=== PATIENT | female | born 1950 | race Caucasian/White ===

== ENCOUNTER 2021-06-03 21:14 | Emergency (ER) | payer MEDICARE ==
--- NOTE | 2021-06-03 21:39 | ED ---
Fall HPI - General Chief Complaint: Fall Stated Complaint: Syncope, Fall Time Seen by Provider: 06/03/21 21:19 Source: patient Mode of arrival: EMS - History of Present Illness Initial Comments: This patient is a 70-year-old woman who arrives by ambulance to be evaluated after she had passed out, fallen and injured her left ankle. The patient states that she had not been feeling well since the holiday. She states she hadn't really eaten much since Thursday or so. She had gotten up to use the bathroom. She states she felt a bit lightheaded and then woke up on the floor and noticed that her ankle was aching and she could not put weight on it. EMS was called and placed a splint and then transported the patient here. The patient denies any other injuries. No head or neck pain. No chest, back abdomen or other extremity pains. The patient had not noticed any palpitations or arrhythmia. She did not have chest pain, diaphoresis, dyspnea, nausea or vomiting. MD Complaint: fall -: minutes(s) Fall From: standing When Fall Occurred: just prior to arrival Fall Witnessed: no Place Fall Occurred: home Loss of Consciousness: second(s) Prolonged Down Time?: no Symptoms Prior to Fall: lightheadedness Location - Extremities: Left: Ankle Severity: moderate Quality: aching Context: history of frequent falls Associated Symptoms: denies - Related Data Previous Rx's Medication Instructions Recorded HYDROcodone/APAP 5-325MG [[place] 1 tab PO Q4HR PRN 3 Days #18 tab 06/04/21 5-325] Ondansetron Odt [Zofran ODT] 4 mg PO Q8HR PRN #10 tab 06/04/21 metFORMIN HCL [Glucophage] 500 mg PO BID #20 tab 06/04/21 Allergies Allergy/AdvReac Type Severity Reaction Status Date / Time No Known Allergies Allergy Verified 06/03/21 21:24 Review of Systems ROS Statement: Those systems with pertinent positive or pertinent negative responses have been documented in the HPI. ROS Other: All systems not noted in ROS Statement are negative. Constitutional: Denies: fever, chills Eyes: Denies: vision change Respiratory: Denies: cough, dyspnea Cardiovascular: Denies: chest pain, palpitations Gastrointestinal: Denies: abdominal pain, nausea, vomiting Genitourinary: Denies: dysuria, hematuria Musculoskeletal: Denies: back pain Skin: Denies: rash Neurological: Denies: headache, weakness, numbness Past Medical History Past Medical History: Diabetes Mellitus History of Any Multi-Drug Resistant Organisms: None Reported Past Surgical History: No Surgical Hx Reported Past Psychological History: No Psychological Hx Reported Smoking Status: Former smoker Past Alcohol Use History: Occasional Past Drug Use History: None Reported General Exam Limitations: no limitations General appearance: alert, in no apparent distress Head exam: Present: atraumatic, normocephalic Eye exam: Present: normal appearance. Absent: scleral icterus, conjunctival injection Neck exam: Present: normal inspection Respiratory exam: Present: normal lung sounds bilaterally. Absent: respiratory distress, wheezes, rales, rhonchi, stridor Cardiovascular Exam: Present: regular rate, normal rhythm, normal heart sounds. Absent: systolic murmur, diastolic murmur, rubs, gallop GI/Abdominal exam: Present: soft. Absent: distended, tenderness, guarding, rebound, rigid, mass Extremities exam: Present: normal capillary refill. Absent: pedal edema, calf t enderness Left Hip exam: Present: normal inspection, full ROM. Absent: tenderness, swelling Upper Leg exam: Present: normal inspection, full ROM. Absent: tenderness, swelling Knee exam: Present: normal inspection, full ROM. Absent: tenderness, swelling Lower Leg exam: Present: normal inspection, full ROM. Absent: tenderness, swelling Ankle exam: Present: tenderness, swelling. Absent: normal inspection, full ROM Foot/Toe exam: Present: normal inspection, full ROM. Absent: tenderness, swelling Neurovascular tendon exam: Present: no vascular compromise. Absent: abnormal cap refill, abnormal 2-point discrimination Back exam: Present: normal inspection, full ROM. Absent: vertebral tenderness Neurological exam: Present: alert. Absent: motor sensory deficit Skin exam: Present: warm, dry, intact, normal color. Absent: rash Course Vital Signs 06/03/21 06/03/21 06/03/21 21:20 23:09 23:24 Temperature 98.3 F Pulse Rate 104 H 100 96 Respiratory 16 19 20 Rate Blood Pressure 125/81 103/64 103/73 O2 Sat by Pulse 95 97 98 Oximetry 06/03/21 06/03/21 06/03/21 23:25 23:39 23:45 Temperature Pulse Rate 80 84 79 Respiratory 18 15 19 Rate Blood Pressure 116/58 109/74 139/73 O2 Sat by Pulse 96 98 98 Oximetry 06/04/21 00:00 Temperature Pulse Rate 82 Respiratory 18 Rate Blood Pressure 135/74 O2 Sat by Pulse 98 Oximetry Procedures - Orthopedic Fracture Reduction Fracture #1 Consent Obtained: written consent Side: left Fracture Reduction Location: tibia, fibula Analgesia: procedural sedation Technique: direct manipulation Post Reduction X-rays Demonstrate: acceptable reduction Post-Reduction Neuro Exam: intact Post-Reduction Vascular Exam: intact Splint Applied: Yes Patient Tolerated Procedure: well, no complications - Orthopedic Splinting/Casting Injury #1 Side: left Lower Extremity Injury Location: ankle Lower Extremity Immobilizer: posterior splint, stirrup splint Additional Comments: There is a buckle present in the stirrup splint however it is below the post erior mold and the patient is not having any pain or contact. Medical Decision Making - Lab Data Result diagrams: 06/03/21 21:19 06/03/21 21:19 Lab Results 06/03/21 06/03/21 06/03/21 Range/Units 21:19 21:19 21:19 WBC 15.5 H (3.8-10.6) k/uL RBC 4.71 (3.80-5.40) m/uL Hgb 14.6 (11.4-16.0) gm/dL Hct 43.5 (34.0-46.0) % MCV 92.2 (80.0-100.0) fL MCH 30.9 (25.0-35.0) pg MCHC 33.5 (31.0-37.0) g/dL RDW 12.9 (11.5-15.5) % Plt Count 361 (150-450) k/uL MPV 8.4 Neutrophils % 77 % Lymphocytes % 15 % Monocytes % 6 % Eosinophils % 0 % Basophils % 0 % Neutrophils # 12.0 H (1.3-7.7) k/uL Lymphocytes # 2.3 (1.0-4.8) k/uL Monocytes # 1.0 (0-1.0) k/uL Eosinophils # 0.0 (0-0.7) k/uL Basophils # 0.1 (0-0.2) k/uL PT 10.9 (9.0-12.0) sec INR 1.0 (<1.2) APTT 23.5 (22.0-30.0) sec Sodium 137 (137-145) mmol/L Potassium 4.3 (3.5-5.1) mmol/L Chloride 96 L (98-107) mmol/L Carbon Dioxide 22 (22-30) mmol/L Anion Gap 19 mmol/L BUN 39 H (7-17) mg/dL Creatinine 1.63 H (0.52-1.04) mg/dL Est GFR (CKD-EPI)AfAm 36 (>60 ml/min/1.73 sqM) Est GFR (CKD-EPI)NonAf 32 (>60 ml/min/1.73 sqM) Glucose 318 H (74-99) mg/dL Calcium 10.4 H (8.4-10.2) mg/dL Total Bilirubin 0.9 (0.2-1.3) mg/dL AST 23 (14-36) U/L ALT 17 (4-34) U/L Alkaline Phosphatase 130 H (38-126) U/L Troponin I (0.000-0.034) ng/mL Total Protein 9.0 H (6.3-8.2) g/dL Albumin 4.7 (3.5-5.0) g/dL Coronavirus (PCR) (Not Detectd) 06/03/21 06/03/21 Range/Units 21:19 22:05 WBC (3.8-10.6) k/uL RBC (3.80-5.40) m/uL Hgb (11.4-16.0) gm/dL Hct (34.0-46.0) % MCV (80.0-100.0) fL MCH (25.0-35.0) pg MCHC (31.0-37.0) g/dL RDW (11.5-15.5) % Plt Count (150-450) k/uL MPV Neutrophils % % Lymphocytes % % Monocytes % % Eosinophils % % Basophils % % Neutrophils # (1.3-7.7) k/uL Lymphocytes # (1.0-4.8) k/uL Monocytes # (0-1.0) k/uL Eosinophils # (0-0.7) k/uL Basophils # (0-0.2) k/uL PT (9.0-12.0) sec INR (<1.2) APTT (22.0-30.0) sec Sodium (137-145) mmol/L Potassium (3.5-5.1) mmol/L Chloride (98-107) mmol/L Carbon Dioxide (22-30) mmol/L Anion Gap mmol/L BUN (7-17) mg/dL Creatinine (0.52-1.04) mg/dL Est GFR (CKD-EPI)AfAm (>60 ml/min/1.73 sqM) Est GFR (CKD-EPI)NonAf (>60 ml/min/1.73 sqM) Glucose (74-99) mg/dL Calcium (8.4-10.2) mg/dL Total Bilirubin (0.2-1.3) mg/dL AST (14-36) U/L ALT (4-34) U/L Alkaline Phosphatase (38-126) U/L Troponin I 0.013 (0.000-0.034) ng/mL Total Protein (6.3-8.2) g/dL Albumin (3.5-5.0) g/dL Coronavirus (PCR) Not Detected (Not Detectd) - EKG Data -: EKG Interpreted by Me EKG shows normal: sinus rhythm, axis (Normal), intervals (Normal), QRS complexes (Normal), ST-T waves (Normal) Rate: tachycardia (Rate 101 bpm) Disposition Clinical Impression: Fall, Ankle fracture, bimalleolar, closed, Hyperglycemia Disposition: HOME SELF-CARE Condition: Good Instructions (If sedation given, give patient instructions): Ankle Fracture (ED), Moderate Sedation (ED), Nondiabetic Hyperglycemia (ED) Prescriptions: metFORMIN HCL [Glucophage] 500 mg PO BID #20 tab HYDROcodone/APAP 5-325MG [[place] 5-325] 1 tab PO Q4HR PRN 3 Days #18 tab PRN Reason: Pain Ondansetron Odt [Zofran ODT] 4 mg PO Q8HR PRN #10 tab PRN Reason: Nausea Is patient prescribed a controlled substance at d/c from ED?: Yes When asked, does pt state using other controlled substances?: No If prescribed controlled substance>3 days was MAPS reviewed?: Prescribed <3 Days If opioid is for acute pain is fill amount 7 days or less?: Yes If Rx opioid, was Start Talking consent form obtained?: Yes Referrals: None,Stated [Primary Care Provider] - 1-2 days Nicholas Proctor MD [Medical Doctor] - 1-2 days
[2021-06-03] MEDS ORDERED: ETOMIDATE 2 MG/ML 10 ML VIAL IVP STA (22:00)
--- NOTE | 2021-06-03 22:02 | XR ---
EXAMINATION TYPE: XR chest 2V DATE OF EXAM: 06/03/2021 COMPARISON: NONE HISTORY: Syncope. Chest pain TECHNIQUE: 2 views FINDINGS: Heart and mediastinum are normal. Lungs are clear. Diaphragm is normal. Bony thorax is inta ct IMPRESSION: Normal chest.
--- NOTE | 2021-06-03 22:04 | XR ---
EXAMINATION TYPE: XR ankle complete LT DATE OF EXAM: 06/03/2021 COMPARISON: NONE HISTORY: Fall. Pain. TECHNIQUE: 3 views FINDINGS: There is transverse fracture of the medial malleolus. There is oblique fracture of the dist al fibula. There is lateral displacement of the talus proximally 2 cm. There is probably a nondisplac ed posterior malleolus chip fracture. There is plantar and Achilles calcaneal spurring. IMPRESSION: Trimalleolar fracture of the ankle. Lateral partial dislocation of the talus.
[2021-06-03 22:08] LABS: Basophils # (A) 0.1 k/uL (0-0.2); Basophils % (A) 0 %; Eosinophils % (A) 0 %; HCT 43.5 % (34.0-46.0); HGB 14.6 gm/dL (11.4-16.0); Lymphocytes # (A) 2.3 k/uL (1.0-4.8); Lymphocytes % (A) 15 %; MCH 30.9 pg (25.0-35.0); MCHC 33.5 g/dL (31.0-37.0); MCV 92.2 fL (80.0-100.0); Mean Platelet Volume 8.4; Monocytes % (A) 6 %; Neutrophils % (A) 77 %; Platelet Count 361 k/uL (150-450); RBC 4.71 m/uL (3.80-5.40); RDW 12.9 % (11.5-15.5); WBC 15.5 k/uL (3.8-10.6)
[2021-06-03 22:22] LABS: Albumin 4.7 g/dL (3.5-5.0); Calcium 10.4 mg/dL (8.4-10.2); Potassium 4.3 mmol/L (3.5-5.1); Total Bilirubin 0.9 mg/dL (0.2-1.3)
[2021-06-03 22:24] LABS: Partial Thromboplastin Time 23.5 sec (22.0-30.0); Prothrombin Time 10.9 sec (9.0-12.0)
[2021-06-03] MEDS ORDERED: MORPHINE SULFATE 4 MG/ML SYRINGE IV STA (22:27)
--- NOTE | 2021-06-03 23:48 | XR ---
EXAMINATION TYPE: XR ankle complete LT DATE OF EXAM: 06/03/2021 COMPARISON: Today HISTORY: Post reduction TECHNIQUE: 3 views FINDINGS: There is oblique fracture distal fibula. There is transverse fracture medial malleolus. Ank le mortise is reasonably in anatomic position. IMPRESSION: There is satisfactory reduction of a bimalleolar fracture of the left ankle. No definite posterior malleolus fracture.
[2021-06-04] MEDS ORDERED: SODIUM CHLORIDE 0.9% 1,000 ML IV ONE (00:23)
[2021-06-04] MEDS ORDERED: ONDANSETRON 4 MG/2 ML VIAL IVP STA (00:57)
[2021-06-04 01:52] VITALS: BP 120/73; RESP 19
[2021-06-04 01:54] VITALS: PULSE 74; TEMP 98.9
== END 2021-06-04 01:30 | disposition home or self-care (01) ==
LOC: EC 21:14
DX: S82.842A Displaced bimalleolar fracture of left lower leg, initial encounter for closed fracture (principal); E11.65 Type 2 diabetes mellitus with hyperglycemia; Z79.84 Long term (current) use of oral hypoglycemic drugs; Z87.891 Personal history of nicotine dependence; Z20.822 Contact with and (suspected) exposure to COVID-19; W18.30XA Fall on same level, unspecified, initial encounter
CPT/HCPCS: 99284; 96374; 96375; 27810; 36415; 93005; 80053; 84484; 85025; 85610; 85730; 87635; 73610; 71046; J2270; J2405

== ENCOUNTER 2021-06-14 12:44 | Day surgery (SDC) | payer MEDICARE ==
[2021-06-11 09:52] VITALS: BMI 25.4
[~2021-06-14 12:44] MED LIST: DEXAMETHASONE SOD PHOSPHATE 4 MG/ML 1 ML VIAL IV ONE; HYDROmorphone 0.5 MG/0.5 ML SYRINGE IVP PRN; ONDANSETRON 4 MG/2 ML VIAL IVP ONE
[2021-06-14] MEDS: LACTATED RINGERS 1,000 ML IV SCH ×2 (13:39→20:52)
[2021-06-14 13:47] LABS: Glucose,Whole Blood 178 mg/dL (75-99)
[2021-06-14] MEDS ORDERED: MIDAZOLAM 2 MG/2 ML VIAL IVP ONE (14:15)
[2021-06-14] MEDS ORDERED: fentaNYL (PF) 50 MCG/ML 2 ML AMP IVP ONE (14:16)
--- NOTE | 2021-06-14 14:41 | P.ANPRN ---
Procedure Note - Anesthesia - Nerve Block Performed Left Popliteal Single Time Out Performed: Yes (1415) Date of Procedure: 06/14/21 Procedure Start Time: 14:16 Procedure Stop Time: 14:17 Location of Patient: PreOp Indication: Acute Post-Operative Pain, Requested by Surgeon Specifically requested for management of pain by DrJordon: Daniel Millan Sedation Type: Sedate with meaningful contact maintained Preparation: Sterile Prep Position: Supine Catheter: None Needle Types: Pajunk Needle Gauge: 21 Ultrasound used to visualize needle placement: Yes Ultrasound used to observe medication spread: Yes Injectate: 0.5% Ropivacaine (see comment for volume) (15cc + 15cc nacl pf) Blood Aspirated: No Pain Paresthesia on Injection Noted: No Resistance on Injection: Normal Image Stored and Saved: Yes Events: Uneventful and Well Tolerated
--- NOTE | 2021-06-14 14:42 | P.ANPRN ---
Procedure Note - Anesthesia - Nerve Block Performed Left Adductor Canal Single Time Out Performed: Yes (1415) Date of Procedure: 06/14/21 Procedure Start Time: 14:17 Procedure Stop Time: 14:18 Location of Patient: PreOp Indication: Acute Post-Operative Pain, Requested by Surgeon Specifically requested for management of pain by DroJrdon: Nicholas Proctor Sedation Type: Sedate with meaningful contact maintained Preparation: Sterile Prep Position: Supine Catheter: None Needle Types: Pajunk Needle Gauge: 21 Ultrasound used to visualize needle placement: Yes Ultrasound used to observe medication spread: Yes Injectate: 0.5% Ropivacaine (see comment for volume) (15cc + 15cc nacl pf) Blood Aspirated: No Pain Paresthesia on Injection Noted: No Resistance on Injection: Normal Image Stored and Saved: Yes Events: Uneventful and Well Tolerated
[2021-06-14] MEDS ORDERED: MIDAZOLAM 2 MG/2 ML VIAL ONE (16:06)
[2021-06-14] MEDS ORDERED: SUCCINYLCHOLINE CHLORIDE 100 MG/5 ML SYR IV ONE (16:06)
[2021-06-14] MEDS ORDERED: GLYCOPYRROLATE 0.2 MG/ML 2 ML VIAL ONE (16:06)
[2021-06-14] MEDS ORDERED: SODIUM CHLORIDE 0.9% (PF) 10 ML VIAL ONE (16:06)
[2021-06-14] MEDS ORDERED: LIDOCAINE 1% INJ 10MG/ML (20 ML MDV) ONE (16:06)
[2021-06-14] MEDS ORDERED: fentaNYL (PF) 50 MCG/ML 2 ML AMP ONE (16:06)
[2021-06-14] MEDS ORDERED: HYDROmorphone (PF) 1 MG/ML ONE (16:06)
[2021-06-14] MEDS ORDERED: PROPOFOL 10 MG/ML 20 ML VIAL IV ONE (16:06)
[2021-06-14] MEDS ORDERED: NEOSTIGMINE 1 MG/ML 10 ML VIAL ONE (16:06)
[2021-06-14] MEDS ORDERED: PHENYLEPHRINE-0.9% NACL SYG 1,000 MCG/10 ML SYRINGE ONE (16:06)
[2021-06-14] MEDS ORDERED: ROPIVACAINE 5 MG/ML 30 ML VIAL ONE (16:06)
[2021-06-14] MEDS ORDERED: ROCURONIUM 10 MG/ML (5 ML VIAL) IV ONE (16:06)
[2021-06-14] MEDS ORDERED: diphenhydrAMINE 50 MG/ML 1 ML VIAL ONE (16:06)
[2021-06-14] MEDS ORDERED: LACTATED RINGERS 1,000 ML IV ONE (17:04)
[2021-06-14] MEDS ORDERED: HYDROmorphone 0.2 MG/1 ML SYRINGE IVP PRN (18:40)
[2021-06-14] MEDS ORDERED: SENNOSIDES-DOCUSATE SODIUM 1 EACH TAB PO PRN (18:40)
[2021-06-14] MEDS ORDERED: HYDROcodone/APAP 5-325MG 1 EACH TAB PO PRN ×2 (18:40)
[2021-06-14] MEDS ORDERED: ONDANSETRON 4 MG/2 ML VIAL IVP PRN (18:40)
[2021-06-14] MEDS ORDERED: hydrOXYzine pamoate 25 MG CAP PO PRN (18:40)
[2021-06-14] MEDS ORDERED: HYDROmorphone 0.5 MG/0.5 ML SYRINGE IVP PRN ×2 (18:40)
--- NOTE | 2021-06-14 19:00 | P.OP ---
Date of Procedure: 06/14/21 Preoperative Diagnosis: 1. Left trimalleolar ankle fracture dislocation 2. History of diabetes, not currently taking diabetic medications. Preoperative hemoglobin A1c 9 3. Questionable history of cigarette use 4. Nonhealing ulcer over her lateral heel, left ankle 5. Noncompliance Postoperative Diagnosis: Same Procedure(s) Performed: 1. Open reduction and internal fixation of left medial and lateral malleolus, nonoperative management posterior malleolus 2. Application of short leg splint by physician, left ankle Anesthesia: SANKET, regional Surgeon: Nicholas Proctor Computer Hardware Designer #1: Lucia Deluna Estimated Blood Loss (ml): 15 IV fluids (ml): 1,000 Pathology: none sent Condition: stable Disposition: PACU Indications for Procedure: The patient is a 70-year-old female with an unclear medical history who presented with a left closed trimalleolar ankle fracture dislocation. The patient's sister states that she does not have a primary care physician. There is a questionable history of diabetes and cigarette smoking. She has not been having her diabetes managed. Her hemoglobin A1c preoperatively was 9. I saw the patient in the office and placed her in a well-padded splint after coming in and a poorly padded splint from the emergency department. I met with the patient and her sister discuss treatment options. I recommended open reduction and internal fixation. We discussed the potential risks and competitions of surgery including but not limited to risks from anesthesia, infection, delayed wound healing, damage to blood vessels or nerves, nonunion, malunion, loss of fixation, post traumatic arthritis, DVT, PE, other medical complications, and inability to regain preinjury level of function, need for further surgery, and possibly loss of life or limb. Operative Findings: After the patient was under anesthesia and the splint was removed there are multiple bruises seen diffusely throughout the ankle and foot. There is a chronic nonhealing ulcer with an eschar over the lateral wall of the calcaneus. The patient's sister states that this has been here for over a year. The patient's bone was extremely osteopenic with some bone loss suggestive of weightbearing in her splint. After surgery I had a long discussion with the patient's sister. She stated that her sister has been noncompliant and putting weight on her leg in the splint. She also reports a history of poorly controlled diabetes and that she is not currently taking care of herself with her medications. She states that the eschar on the lateral wall of her [place] is been present for over a year and has not been healing due to noncompliance. Description of Procedure: The patient was identified in preoperative holding and the correct left leg was marked with my initials. I reviewed the consent form with the patient and her sister. All their questions were answered. The patient was then given a block by anesthesia. She was brought back to the operating room. She is given a general anesthetic and preoperative antibiotics. Her splint was taken down. There was wrinkling of the skin and no open wounds. There are multiple bruises that appeared chronic throughout her leg. She had a dry eschar over the lateral aspect of her left calcaneus. There is a superficial serous blister over the dorsum of her foot. A tourniquet was applied the proximal aspect the left leg. A chlorhexidine scrub brush was used to scrub the leg clean. A bump was placed under the left hip and a ramp was placed under the left leg to facilitate imaging. Left leg was then prepped and draped in standard sterile fashion. Prior to starting surgery timeout was performed identifying the correct patient, operative extremity, and procedure. The patient's leg was then elevated, exsanguinated with an Esmarch bandage, and the tourniquet was inflated to 250 mmHg. I began by making a longitudinal incision directly over the lateral malleolus. Dissection was carried down carefully to the subcutaneous tissue. The superficial peroneal nerve was identified and carefully retracted throughout the procedure. The periosteum and fascia was elevated. The patient's distal fragm ent was completely displaced with minimal soft tissue attachments. There were some bone loss and comminution on the anterior aspect of the proximal fragment. The bone was slightly eburnated suggestive of weightbearing. The fracture edges were carefully debrided. The bone was extremely osteopenic. The fibula was pulled out to length and gently clamp. Fluoroscopy was used to verify reduction. K wires were placed holding the reduction due to the poor bone quality. A precontoured distal fibular locking plate was placed over the lateral aspect of the fibula. A nonlocking 3.5 mm screw was placed just proximal to the fracture bringing the plate down nicely to bone. 2 additional nonlocking 3.5 mm screws were placed proximally bringing the plate down to bone. A nonlocking 3.5 mm screw was placed distally to bring the plate down to bone and then cutting screws were placed distally. The nonlocking screw distally was removed and a final locking screw was placed distally. The K wires and clamps were removed and the reduction held. Attention was then turned medially. A longitudinal incision was made directly over the medial malleolus. The fracture site was identified. There is a vertical component to it. There is again bone loss and eburnation of the bone margin suggestive of early weightbearing. The fracture was keyed in and held reduced with K wires. A one third tubular plate was contoured over the medial malleolus due to the patient's poor bone quality. Nonlocking screws were placed proximally to the fracture and a 3.5 mm screw was placed through the distal hole of the plate. Due to the patient's poor bone quality, history of diabetes, and noncompliance 3 syndesmotic screws were placed. At this point final fluoroscopic images were taken. The fibula appeared to out to length and the talus was reduced anatomically within the ankle mortise. The wounds were then thoroughly irrigated and closed in layers. The skin incisions were reinforced with brown stretchy Steri-Strips. Sterile dressings were applied over the surgical incisions. Silvadene and nonadherent gauze were placed over the chronic ulcer on the lateral aspect of her heel and on the dorsum of her foot. A very well-padded bulky Adame splint was placed with the ankle at neutral. The patient was then awoken from her anesthetic and transferred to a rney, and brought to recovery having tolerated the procedure well. Lucia Deluna PA-C was required as a skilled speech language pathologist assistant due to the complexity of the procedure. Plan: The patient is to be strictly nonweightbearing on her left ankle. She will receive 2 doses of postoperative antibiotics. DVT prophylaxis with aspirin. Internal medicine for perioperative medical management and evaluation for chronic diabetes as her preoperative hemoglobin A1c was 9.0. I would also like to get a nutrition consult due to the patient's poor soft tissue envelope and chronic ulceration over the lateral aspect of her heel. I had a long discussion with the patient's sister on her outcome. I stressed the importance of strict compliance and nonweightbearing. We discussed that the patient had a history of compliance in the past that she has been walking on her ankle preoperatively. I would also like a social work and care management consultation for evaluation of rehab given the patient's home situation and concern for compliance. Like to see the patient in 1 week for a wound check.
[2021-06-14 19:17] LABS: Glucose,Whole Blood 221 mg/dL (75-99)
[2021-06-14] MEDS ORDERED: INSULIN ASPART (NovoLOG) 100 UNIT/ML VIAL SQ ONE (19:24)
--- NOTE | 2021-06-14 21:06 | XR ---
EXAMINATION TYPE: XR ankle limited LT DATE OF EXAM: 06/14/2021 COMPARISON: NONE HISTORY: Ankle fracture TECHNIQUE: 5 view FINDINGS: 2 minutes and 90 seconds of fluoroscopy time was recorded for the surgery. A series of 5 im ages show placement of plates and screws fixating the fractures of the distal tibia and fibula in anupam tomic position. IMPRESSION: No complicating process seen.
[2021-06-14 22:29] LABS: Albumin 3.5 g/dL (3.5-5.0)
[2021-06-14 23:26] LABS: Glucose,Whole Blood 214 mg/dL (75-99)
[2021-06-14] MEDS: INSULIN ASPART (NovoLOG) 100 UNIT/ML VIAL SQ SCH (23:35)
[2021-06-15] MEDS: LACTATED RINGERS 1,000 ML IV SCH ×3 (02:28→17:17)
--- NOTE | 2021-06-15 05:04 | P.CONS ---
History of Present Illness - Reason for Consult Consult date: 06/14/21 post op medical management of DM Requesting physician: Nicholas Proctor - Chief Complaint left ankle fracture - History of Present Illness 70 year old female with DM patient comes in for scheduled ORIF of left ankle after she had a fall injury 06/04/2021 resulting in closed fracture of the left ankle , was initially reduced and placed in cast , and now presenting for ORIF. patient tolerated procedure well, no observed immediate post op complications, denies any chest pain or trouble breathing, pain is controlled and well tolerated Review of Systems Pertinent positives as noted in HPI. All other systems were reviewed and are negative Past Medical History Past Medical History: Diabetes Mellitus History of Any Multi-Drug Resistant Organisms: None Reported Past Surgical History: No Surgical Hx Reported Additional Past Surgical History / Comment(s): pt states "female surgery to help with " Past Anesthesia/Blood Transfusion Reactions: No Reported Reaction Past Psychological History: No Psychological Hx Reported Smoking Status: Former smoker Past Alcohol Use History: Rare Past Drug Use History: None Reported - Past Family History Mother Family Medical History: No Reported History Medications and Allergies Home Medications Medication Instructions Recorded Confirmed Type HYDROcodone/APAP 5-325MG [Lerna 1 tab PO Q4HR PRN 3 Days #18 tab 06/04/21 06/11/21 Rx 5-325] Ondansetron Odt [Zofran ODT] 4 mg PO Q8HR PRN #10 tab 06/04/21 06/14/21 Rx metFORMIN HCL [Glucophage] 500 mg PO BID #20 tab 06/04/21 06/14/21 Rx Aspirin 81 mg PO BID 30 Days #60 tab 06/14/21 Rx Allergies Allergy/AdvReac Type Severity Reaction Status Date / Time codeine AdvReac Itching Verified 06/14/21 13:44 Physical Exam Vitals: Vital Signs Temp Pulse Resp BP Pulse Ox 06/15/21 01:45 98.7 F 74 16 139/73 95 06/14/21 22:35 98.4 F 62 128/71 94 L 06/14/21 22:20 74 113/74 96 06/14/21 22:05 64 130/70 94 L 06/14/21 21:50 65 129/75 97 06/14/21 21:05 67 143/79 96 06/14/21 20:50 71 161/65 97 06/14/21 20:35 68 134/66 97 06/14/21 20:20 98.3 F 65 18 133/71 95 06/14/21 19:32 71 16 121/62 98 06/14/21 19:18 67 16 129/60 97 06/14/21 19:03 68 16 128/60 99 06/14/21 18:48 75 16 138/64 96 06/14/21 18:33 98.1 F 83 16 146/66 99 06/14/21 14:24 71 16 128/60 100 06/14/21 13:41 98.5 F 85 17 147/62 100 Intake and Output 06/14/21 06/14/21 06/15/21 14:59 22:59 06:59 Intake Total 400 1275 800 Output Total 15 400 Balance 400 1260 400 Intake: IV 400 1275 Intake, IV Titration 800 Amount Lactated Ringers 1,000 ml 800 @ 100 mls/hr IV .Q10H AZALIA Rx#:[id number] Output: Urine 400 Estimated Blood Loss 15 Other: # Voids 1 Weight 74.843 kg Constitutional: No acute distress, conversant, pleasant Eyes: Anicteric sclerae, moist conjunctiva, Pupils equal round reactive to light ENMT: NC/AT Oropharynx clear, no erythema, or exudates Neck: Supple, no masses, or JVD No carotid bruits No thyromegaly Lungs: Clear to auscultation Clear to percussion Normal respiratory effort, no accessory muscle use Cardiovascular: Heart regular in rate and rhythm, No murmurs, gallops, or rubs No peripheral edema Abdominal: Soft Nontender, no guarding, rebound or rigidity Abdomen moving with respiration Normoactive bowel sounds No hepatomegaly, No splenomegaly No palpable mass No abdominal wall hernia noted Skin: Normal temperature, tone, texture, turgor No induration No subcutaneous nodules No rash, lesions No ulcers Extremities: left lower extremity in surgical dressing , cappilary refill immediate over the toes No digital cyanosis No clubbing Pedal pulses intact over right foot, unable to assess left foot due to surgical dressing Radial pulses intact and symmetrical No calf tenderness Psychiatric: Alert and oriented to person, place and time Appropriate affect fair judgement Neuro Muscles Strength 4/5 in bilateral upper and right lower extremity , exam limited over left lower extremity due to recent surgery Sensation to light touch grossly present throughout Cranial nerves II-XII grossly intact Lymphatics: no palpable cervical or supraclavicular , or inguinal lymph nodes Results Labs: Abnormal Lab Results - Last 24 Hours (Table) 06/14/21 06/14/21 06/14/21 Range/Units 13:46 19:10 23:25 POC Glucose (mg/dL) 178 H 221 H 214 H (75-99) mg/dL Assessment and Plan Assessment: left ankle fracture s/p ORIF post op zero pain control and DVT pPX per ortho DM on oral hypoglycemic agent hold metformin insulin sliding scale check A1c follow up CBC and BMP Thank you for allowing us to participate in the care of this patient. Do not hesitate to contact us with questions. Someone can be reached from the [facility] hospitalist group at all hours of the day at [phone].
[2021-06-15 07:18] LABS: Glucose,Whole Blood 150 mg/dL (75-99)
[2021-06-15] MEDS ORDERED: INSULIN ASPART (NovoLOG) 100 UNIT/ML VIAL SQ SCH ×2 (07:30→22:59)
[2021-06-15] MEDS: INSULIN ASPART (NovoLOG) 100 UNIT/ML VIAL SQ SCH ×4 (07:41→20:39)
--- NOTE | 2021-06-15 07:41 | FL ---
EXAMINATION TYPE: FL guidance operating room DATE OF EXAM: 06/14/2021 CLINICAL HISTORY: Left ankle fracture. TECHNIQUE: Fluoroscopy. COMPARISON: Left ankle x-ray June 03, 2021. FINDINGS: Fluoroscopic guidance was provided during open reduction internal fixation procedure perfo rmed by Dr. Proctor. A total of 2 minutes 90 seconds of fluoroscopic time was utilized during the p rocedure and 5 spot intraoperative images are acquired. IMPRESSION: As Above.
--- NOTE | 2021-06-15 09:49 | P.PN ---
Subjective Progress Note Date: 06/15/21 Principal diagnosis: Bimalleolar fracture left ankle. Status post open reduction internal fixation left ankle. The patient is a 70-year-old female with an unclear medical history who presented with a left closed trimalleolar ankle fracture dislocation. The patient's sister states that she does not have a primary care physician. There is a questionable history of diabetes and cigarette smoking. She has not been having her diabetes managed. Her hemoglobin A1c preoperatively was 9. I saw the patient in the office and placed her in a well-padded splint after coming in and a poorly padded splint from the emergency department. I met with the patient and her sister discuss treatment options. I recommended open reduction and internal fixation. The patient is postop day #1 status post open reduction internal fixation bimalleolar fracture left ankle. She states that her pain is well controlled. She denies nausea vomiting or diarrhea. She is afebrile. Vital signs are stable. She has no new complaints or concerns. Objective - Vital Signs Vital signs: Vital Signs Temp 98.5 F 06/15/21 08:00 Pulse 72 06/15/21 08:00 Resp 14 06/15/21 08:00 BP 123/69 06/15/21 08:00 Pulse Ox 96 06/15/21 08:00 Intake & Output 06/14/21 06/15/21 06/15/21 18:59 06:59 18:59 Intake Total 1450 1025 Output Total 15 400 Balance 1435 625 Weight 74.843 kg 74.843 kg Intake: IV 1450 225 Intake, IV Titration 800 Amount Lactated Ringers 1,000 ml 800 @ 100 mls/hr IV .Q10H AZALIA Rx#:[id number] Output: Urine 400 Estimated Blood Loss 15 Other: # Voids 250 - Exam This is a pleasant 70-year-old female in no acute distress. She is alert and oriented at this time. Exam of the left lower extremity reveals a dislocated Adame splint in place. She has full toe motion without difficulty or pain. She has decreased sensation to the toes, likely secondary to the nerve block. Cap illary refill is less than 3 seconds to the toes. - Labs Labs: Abnormal Lab Results - Last 24 Hours (Table) 06/14/21 06/14/21 06/14/21 Range/Units 13:46 19:10 23:25 POC Glucose (mg/dL) 178 H 221 H 214 H (75-99) mg/dL 06/15/21 Range/Units 07:17 POC Glucose (mg/dL) 150 H (75-99) mg/dL Assessment and Plan (1) Status post open reduction with internal fixation (ORIF) of fracture of ankle Current Visit: Yes Status: Acute Code(s): Z98.890 - OTHER SPECIFIED POSTPROCEDURAL STATES; Z87.81 - PERSONAL HISTORY OF (HEALED) TRAUMATIC FRACTURE SNOMED Code(s): 137493622 (2) Ankle fracture, bimalleolar, closed Current Visit: No Status: Acute Code(s): S82.843A - DISPLACED BIMALLEOLAR FRACTURE OF UNSP LOWER LEG, INIT SNOMED Code(s): 77186500 Plan: The clinical findings are discussed with the patient. She will have physical therapy and occupational therapy evaluations. She likely will require inpatient rehab at discharge. Continue current care. She is nonweightbearing to the left lower extremity with use of walker.
[2021-06-15 10:06] LABS: Basophils # (A) 0.02 X 10*3/uL (0.00-0.10); Basophils % (A) 0.2 %; Eosinophils # (A) 0 X 10*3/uL (0.04-0.35); Eosinophils % (A) 0 %; HCT 29.4 % (37.2-46.3); HGB 9.6 g/dL (12.0-15.0); Lymphocytes # (A) 1.58 X 10*3/uL (0.90-5.00); Lymphocytes % (A) 12.6 %; MCH 29.7 pg (27.0-32.0); MCHC 32.7 g/dL (32.0-37.0); Mean Platelet Volume 10.4 fL (9.5-12.2); Neutrophils # (A) 9.91 X 10*3/uL (1.80-7.70); Neutrophils % (A) 78.7 %; Platelet Count 314 X 10*3/uL (140-440); RBC 3.23 X 10*6/uL (4.10-5.20); RDW 12.5 % (11.5-14.5); WBC 12.57 X 10*3/uL (4.50-10.00)
--- NOTE | 2021-06-15 11:29 | P.PN ---
Subjective Progress Note Date: 06/15/21 Principal diagnosis: ankle fracture Doing well. She is s/p open reduction internal fixation bimalleolar fracture left ankle. No significant pain, no sob. No fevers. Objective - Vital Signs Vital signs: Vital Signs Temp 98.5 F 06/15/21 08:00 Pulse 72 06/15/21 08:00 Resp 14 06/15/21 08:00 BP 123/69 06/15/21 08:00 Pulse Ox 96 06/15/21 08:00 Intake & Output 06/14/21 06/15/21 06/15/21 18:59 06:59 18:59 Intake Total 1450 1025 Output Total 15 400 Balance 1435 625 Weight 74.843 kg 74.843 kg Intake: IV 1450 225 Intake, IV Titration 800 Amount Lactated Ringers 1,000 ml 800 @ 100 mls/hr IV .Q10H AZALIA Rx#:[id number] Output: Urine 400 Estimated Blood Loss 15 Other: Voiding Method Bedside Commode # Voids 250 - Exam Constitutional: No acute distress, conversant, pleasant Eyes:Anicteric sclerae, moist conjunctiva, no lid-lag, PERRLA, ENMT: Oropharynx clear, no erythema, exudates Neck: Supple, FROM, no masses, or JVD, No carotid bruits, No thyromegaly Lungs: Clear to auscultation, Clear to percussion, Normal respiratory effort, no accessory muscle use Cardiovascular: Heart regular in rate and rhythm, No murmurs, gallops, or rubs, No peripheral edema Abdominal: Soft, Nontender, no guarding, rebound or rigidity, Normoactive bowel sounds, No hepatomegaly, No splenomegaly, No palpable mass Skin: Normal temperature, tone, texture, turgor, no induration, No subcutaneous nodules, No rash, lesions, No ulcers Extremities: Left ankle dressings applied. No digital cyanosis, No clubbing, Pedal pulses intact and symmetrical, Radial pulses intact and symmetrical, No calf tenderness Psychiatric: Alert and oriented to person, place and time, appropriate affect, intact judgement Neuro: Muscles Strength 5/5 in all 4 extremities, Sensation to light touch grossly present throughout, Cranial nerves II-XII grossly intact, no focal sensory deficits - Labs CBC & Chem 7: 06/15/21 03:45 Labs: Abnormal Lab Results - Last 24 Hours (Table) 06/14/21 06/14/21 06/14/21 Range/Units 13:46 19:10 21:47 WBC (4.50-10.00) X 10*3/uL RBC (4.10-5.20) X 10*6/uL Hgb (12.0-15.0) g/dL Hct (37.2-46.3) % Immature Gran # (0.00-0.04) X 10*3/uL Neutrophils # (1.80-7.70) X 10*3/uL Eosinophils # (0.04-0.35) X 10*3/uL POC Glucose (mg/dL) 178 H 221 H (75-99) mg/dL Vitamin D 25-Hydroxy 20.3 L (30.0-100.0) ng/mL 06/14/21 06/15/21 06/15/21 Range/Units 23:25 03:45 07:17 WBC 12.57 H (4.50-10.00) X 10*3/uL RBC 3.23 L (4.10-5.20) X 10*6/uL Hgb 9.6 L (12.0-15.0) g/dL Hct 29.4 L (37.2-46.3) % Immature Gran # 0.06 H (0.00-0.04) X 10*3/uL Neutrophils # 9.91 H (1.80-7.70) X 10*3/uL Eosinophils # 0 L (0.04-0.35) X 10*3/uL POC Glucose (mg/dL) 214 H 150 H (75-99) mg/dL Vitamin D 25-Hydroxy (30.0-100.0) ng/mL Assessment and Plan Plan: status post open reduction internal fixation bimalleolar fracture left ankle Post op day number 1 pain control and DVT pPX per ortho DM on oral hypoglycemic agent hold metformin insulin sliding scale check A1c Renal failure Recent cr 1.6, will do a follow up BMP Unclear if acute or chronic Vit D deficiency [place] with 68744 units weekly for 3 months.
[2021-06-15 11:31] LABS: Glucose,Whole Blood 107 mg/dL (75-99)
[2021-06-15 11:52] LABS: African American GFR (CKD) 82.1 (60.0-200.0); Anion Gap 13.4 mmol/L (10.00-18.00); BUN/Creat Ratio 22.86 Ratio (12.00-20.00); Carbon Dioxide 21.7 mmol/L (20.0-27.5); Non-African American GFR(CKD) 70.8 (60.0-200.0); Potassium 4.2 mmol/L (3.5-5.5)
[2021-06-15] MEDS ORDERED: ERGOCALCIFEROL 1,250 MCG (50,000 IU) CAPSULE PO SCH (12:00)
[2021-06-15 16:54] LABS: Glucose,Whole Blood 160 mg/dL (75-99)
[2021-06-15 20:29] LABS: Glucose,Whole Blood 123 mg/dL (75-99)
[2021-06-16 07:06] LABS: Glucose,Whole Blood 166 mg/dL (75-99)
[2021-06-16] MEDS: LACTATED RINGERS 1,000 ML IV SCH ×5 (07:08→22:59)
[2021-06-16] MEDS: INSULIN ASPART (NovoLOG) 100 UNIT/ML VIAL SQ SCH ×4 (07:44→20:21)
--- NOTE | 2021-06-16 08:27 | P.PN ---
Subjective Progress Note Date: 06/16/21 No acute events. Pain well-controlled. Objective - Vital Signs Vital signs: Vital Signs Temp 99.5 F 06/16/21 06:29 Pulse 96 06/16/21 06:29 Resp 18 06/16/21 06:29 BP 160/70 06/16/21 06:29 Pulse Ox 98 06/16/21 06:29 Intake & Output 06/15/21 06/16/21 06/16/21 18:59 06:59 18:59 Intake Total 1080 Output Total 2650 Balance 1080 -2650 Weight 74.843 kg Intake: Oral 1080 Output: Urine 2650 Other: Voiding Method Bedside Commode Bedside Commode # Voids 2 1 - Exam The patient is sitting up in her bed. She is alert and oriented. On inspection of the left ankle there is a clean and intact bulky Adame splint. Her toes are warm and well-perfused brisk capillary refill. There is no pain with passive range of motion of her toes. Sensation is intact to light touch in her expose toes. She able to actively move her toes. - Labs CBC & Chem 7: 06/15/21 03:45 06/15/21 03:45 Labs: Abnormal Lab Results - Last 24 Hours (Table) 06/14/21 06/15/21 06/15/21 Range/Units 21:47 03:45 03:45 WBC 12.57 H (4.50-10.00) X 10*3/uL RBC 3.23 L (4.10-5.20) X 10*6/uL Hgb 9.6 L (12.0-15.0) g/dL Hct 29.4 L (37.2-46.3) % Immature Gran # 0.06 H (0.00-0.04) X 10*3/uL Neutrophils # 9.91 H (1.80-7.70) X 10*3/uL Eosinophils # 0 L (0.04-0.35) X 10*3/uL BUN/Creatinine Ratio 22.86 H (12.00-20.00) Ratio Glucose 189 H (70-110) mg/dL POC Glucose (mg/dL) (75-99) mg/dL Hemoglobin A1c (4.0-6.0) % Vitamin D 25-Hydroxy 20.3 L (30.0-100.0) ng/mL 06/15/21 06/15/21 06/15/21 Range/Units 03:45 11:29 16:52 WBC (4.50-10.00) X 10*3/uL RBC (4.10-5.20) X 10*6/uL Hgb (12.0-15.0) g/dL Hct (37.2-46.3) % Immature Gran # (0.00-0.04) X 10*3/uL Neutrophils # (1.80-7.70) X 10*3/uL Eosinophils # (0.04-0.35) X 10*3/uL BUN/Creatinine Ratio (12.00-20.00) Ratio Glucose (70-110) mg/dL POC Glucose (mg/dL) 107 H 160 H (75-99) mg/dL Hemoglobin A1c 8.9 H (4.0-6.0) % Vitamin D 25-Hydroxy (30.0-100.0) ng/mL 06/15/21 06/16/21 Range/Units 20:28 07:04 WBC (4.50-10.00) X 10*3/uL RBC (4.10-5.20) X 10*6/uL Hgb (12.0-15.0) g/dL Hct (37.2-46.3) % Immature Gran # (0.00-0.04) X 10*3/uL Neutrophils # (1.80-7.70) X 10*3/uL Eosinophils # (0.04-0.35) X 10*3/uL BUN/Creatinine Ratio (12.00-20.00) Ratio Glucose (70-110) mg/dL POC Glucose (mg/dL) 123 H 166 H (75-99) mg/dL Hemoglobin A1c (4.0-6.0) % Vitamin D 25-Hydroxy (30.0-100.0) ng/mL Assessment and Plan Assessment: Postoperative day #2 status post open reduction and internal fixation of left trimalleolar ankle fracture, doing well. Plan: 1. Strict nonweightbearing left ankle, likely 10-12 weeks given her history of poorly controlled diabetes 2. DVT prophylaxis with aspirin 3. Perioperative medical management and diabetes management per internal medicine 4. Nutrition consult due to the patient's multiple medical problems and history of poor wound healing 5. PT/OT 6. Discharge planning and process, would benefit from rehab.
[2021-06-16 08:46] LABS: Basophils # (A) 0.06 X 10*3/uL (0.00-0.10); Basophils % (A) 0.4 %; Eosinophils # (A) 0.09 X 10*3/uL (0.04-0.35); Eosinophils % (A) 0.6 %; HCT 33.6 % (37.2-46.3); Lymphocytes # (A) 2.26 X 10*3/uL (0.90-5.00); Lymphocytes % (A) 14.7 %; MCH 29.6 pg (27.0-32.0); MCHC 32.7 g/dL (32.0-37.0); MCV 90.3 fL (80.0-97.0); Mean Platelet Volume 10.5 fL (9.5-12.2); Monocytes # (A) 1.12 X 10*3/uL (0.20-1.00); Monocytes % (A) 7.3 %; Neutrophils # (A) 11.73 X 10*3/uL (1.80-7.70); Neutrophils % (A) 76.5 %; Platelet Count 332 X 10*3/uL (140-440); RBC 3.72 X 10*6/uL (4.10-5.20); RDW 12.3 % (11.5-14.5); WBC 15.33 X 10*3/uL (4.50-10.00)
[2021-06-16] MEDS: ASPIRIN 325 MG TAB PO SCH (09:06)
[2021-06-16 09:22] LABS: African American GFR (CKD) 82.4 (60.0-200.0); Anion Gap 16.5 mmol/L (10.00-18.00); BUN/Creat Ratio 15.56 Ratio (12.00-20.00); Blood Urea Nitrogen 12.9 mg/dL (9.0-27.0); Calcium 8.9 mg/dL (8.7-10.3); Carbon Dioxide 22.1 mmol/L (20.0-27.5); Magnesium 1.1 mg/dL (1.5-2.4); Non-African American GFR(CKD) 71.1 (60.0-200.0); Phosphorus 2.5 mg/dL (2.4-5.1); Potassium 3.9 mmol/L (3.5-5.5)
[2021-06-16 11:48] LABS: Glucose,Whole Blood 130 mg/dL (75-99)
[2021-06-16] MEDS ORDERED: MAGNESIUM SULFATE-D5W PMX 1 GM in DEXTROSE/WATER 1 100ML.BAG IVPB SCH (13:00)
--- NOTE | 2021-06-16 13:00 | P.PN ---
Subjective Progress Note Date: 06/16/21 Principal diagnosis: ankle fracture Patient felt nauseous this am. No vomiting. No fevers or chills. No pain. Objective - Vital Signs Vital signs: Vital Signs Temp 99.5 F 06/16/21 06:29 Pulse 96 06/16/21 06:29 Resp 18 06/16/21 06:29 BP 160/70 06/16/21 06:29 Pulse Ox 98 06/16/21 06:29 Intake & Output 06/15/21 06/16/21 06/16/21 18:59 06:59 18:59 Intake Total 1080 Output Total 2650 Balance 1080 -2650 Weight 74.843 kg Intake: Oral 1080 Output: Urine 2650 Other: Voiding Method Bedside Commode Bedside Commode External Catheter # Voids 2 1 - Exam Constitutional: No acute distress, conversant, pleasant Eyes:Anicteric sclerae, moist conjunctiva, no lid-lag, PERRLA, ENMT: Oropharynx clear, no erythema, exudates Neck: Supple, FROM, no masses, or JVD, No carotid bruits, No thyromegaly Lungs: Clear to auscultation, Clear to percussion, Normal respiratory effort, no accessory muscle use Cardiovascular: Heart regular in rate and rhythm, No murmurs, gallops, or rubs, No peripheral edema Abdominal: Soft, Nontender, no guarding, rebound or rigidity, Normoactive bowel sounds, No hepatomegaly, No splenomegaly, No palpable mass Skin: Normal temperature, tone, texture, turgor, no induration, No subcutaneous nodules, No rash, lesions, No ulcers Extremities: Left ankle dressings applied. No digital cyanosis, No clubbing, Pedal pulses intact and symmetrical, Radial pulses intact and symmetrical, No calf tenderness Psychiatric: Alert and oriented to person, place and time, appropriate affect, intact judgement Neuro: Muscles Strength 5/5 in all 4 extremities, Sensation to light touch abdullahi ssly present throughout, Cranial nerves II-XII grossly intact, no focal sensory deficits - Labs CBC & Chem 7: 06/16/21 04:40 06/16/21 04:40 Labs: Abnormal Lab Results - Last 24 Hours (Table) 06/15/21 06/15/21 06/15/21 Range/Units 03:45 16:52 20:28 WBC (4.50-10.00) X 10*3/uL RBC (4.10-5.20) X 10*6/uL Hgb (12.0-15.0) g/dL Hct (37.2-46.3) % Immature Gran # (0.00-0.04) X 10*3/uL Neutrophils # (1.80-7.70) X 10*3/uL Monocytes # (0.20-1.00) X 10*3/uL Glucose (70-110) mg/dL POC Glucose (mg/dL) 160 H 123 H (75-99) mg/dL Hemoglobin A1c 8.9 H (4.0-6.0) % Magnesium (1.5-2.4) mg/dL 06/16/21 06/16/21 06/16/21 Range/Units 04:40 04:40 07:04 WBC 15.33 H (4.50-10.00) X 10*3/uL RBC 3.72 L (4.10-5.20) X 10*6/uL Hgb 11.0 L (12.0-15.0) g/dL Hct 33.6 L (37.2-46.3) % Immature Gran # 0.07 H (0.00-0.04) X 10*3/uL Neutrophils # 11.73 H (1.80-7.70) X 10*3/uL Monocytes # 1.12 H (0.20-1.00) X 10*3/uL Glucose 175 H (70-110) mg/dL POC Glucose (mg/dL) 166 H (75-99) mg/dL Hemoglobin A1c (4.0-6.0) % Magnesium 1.1 L (1.5-2.4) mg/dL 06/16/21 Range/Units 11:47 WBC (4.50-10.00) X 10*3/uL RBC (4.10-5.20) X 10*6/uL Hgb (12.0-15.0) g/dL Hct (37.2-46.3) % Immature Gran # (0.00-0.04) X 10*3/uL Neutrophils # (1.80-7.70) X 10*3/uL Monocytes # (0.20-1.00) X 10*3/uL Glucose (70-110) mg/dL POC Glucose (mg/dL) 130 H (75-99) mg/dL Hemoglobin A1c (4.0-6.0) % Magnesium (1.5-2.4) mg/dL Assessment and Plan Plan: status post open reduction internal fixation bimalleolar fracture left ankle Post op day number 2 pain control and DVT pPX per ortho DM on oral hypoglycemic agent hold metformin insulin sliding scale A1c 8.9, will start linagliptin upon discharge. TYREL Resolved. [place] 54504 units weekly for 3 months. Plan for rehab, will arrange thursday.
[2021-06-16] MEDS: MAGNESIUM SULFATE-D5W PMX 1 GM in DEXTROSE/WATER 1 100ML.BAG IVPB SCH ×3 (13:56→16:35)
[2021-06-16] MEDS: ACETAMINOPHEN TAB 325 MG TAB PO PRN (15:21)
[2021-06-16 16:37] LABS: Glucose,Whole Blood 178 mg/dL (75-99)
[2021-06-16 20:21] LABS: Glucose,Whole Blood 112 mg/dL (75-99)
[2021-06-17] MEDS: ACETAMINOPHEN TAB 325 MG TAB PO PRN (05:50)
[2021-06-17 07:15] LABS: Glucose,Whole Blood 133 mg/dL (75-99)
[2021-06-17] MEDS: INSULIN ASPART (NovoLOG) 100 UNIT/ML VIAL SQ SCH ×2 (07:41→12:06)
[2021-06-17] MEDS: ASPIRIN 325 MG TAB PO SCH (07:41)
[2021-06-17 09:14] LABS: African American GFR (CKD) 80 (>60 ml/min/1.73 sqM); Anion Gap 6 mmol/L; Blood Urea Nitrogen 14 mg/dL (7-17); Calcium 8.9 mg/dL (8.4-10.2); Carbon Dioxide 27 mmol/L (22-30); Chloride 102 mmol/L (98-107); Glucose 187 mg/dL (74-99); Magnesium 1.5 mg/dL (1.6-2.3); Non-African American GFR(CKD) 69 (>60 ml/min/1.73 sqM); Potassium 3.4 mmol/L (3.5-5.1); Sodium 135 mmol/L (137-145)
--- NOTE | 2021-06-17 09:44 | P.PN ---
Subjective Progress Note Date: 06/17/21 This patient is a 70-year-old female who is status-post left ankle open reduction and internal fixation on 06/14/21. Today is pos-toperative day #3. The patient is seen and examined at bedside. She states she is having no pain in the left ankle. She states she has been remaining non-weight bearing on the left lower extremity. Her bulky Adame splint remains intact. She is tolerating her diet well. No new complaints or concerns at this time. Vital signs stable. Objective - Vital Signs Vital signs: Vital Signs Temp 98.6 F 06/17/21 08:00 Pulse 72 06/17/21 08:00 Resp 17 06/17/21 08:00 BP 125/56 06/17/21 08:00 Pulse Ox 98 06/17/21 08:00 Intake & Output 06/16/21 06/17/21 06/17/21 18:59 06:59 18:59 Output Total 500 1100 Balance -500 -1100 Output: Urine 500 1100 Other: Voiding Method External Catheter - Exam On examination, the patient is sitting up in bed in no apparent distress. She is alert and oriented 3. On inspection of the left lower extremity, there is a clean, dry, intact bulky Adame splint intact. The visible portion of the toes are warm and well perfused. No pain with PROM of the toes. Patient is able to move toes appropriately. Right calf is soft and non-tender. - Labs CBC & Chem 7: 06/16/21 04:40 06/17/21 08:32 Labs: Abnormal Lab Results - Last 24 Hours (Table) 06/16/21 06/16/21 06/16/21 Range/Units 11:47 16:36 20:19 Sodium (137-145) mmol/L Potassium (3.5-5.1) mmol/L Glucose (74-99) mg/dL POC Glucose (mg/dL) 130 H 178 H 112 H (75-99) mg/dL Magnesium (1.6-2.3) mg/dL 06/17/21 06/17/21 Range/Units 07:14 08:32 Sodium 135 L (137-145) mmol/L Potassium 3.4 L (3.5-5.1) mmol/L Glucose 187 H (74-99) mg/dL POC Glucose (mg/dL) 133 H (75-99) mg/dL Magnesium 1.5 L (1.6-2.3) mg/dL Assessment and Plan Assessment: Status-post left ankle open reduction and internal fixation on 06/14/21. Post- operative day #3. Plan: - Strict nonweightbearing operative leg. Keep bulky Adame splint clean, dry, intact. - Physical therapy for gait and balance training. - Aspirin for DVT prophylaxis. - Pain management as needed. - Internal medicine for martha-operative medical management. - Hemoglobin A1C 9.0 pre-operatively. Nutrition consult. - Awaiting social work evaluation. Anticipate discharge to rehab.
--- NOTE | 2021-06-17 10:32 | P.PN ---
Subjective Progress Note Date: 06/17/21 Principal diagnosis: ankle fracture Doing well. No new complaints. Participating with PT. Objective - Vital Signs Vital signs: Vital Signs Temp 98.6 F 06/17/21 08:00 Pulse 72 06/17/21 08:00 Resp 17 06/17/21 08:00 BP 125/56 06/17/21 08:00 Pulse Ox 98 06/17/21 08:00 Intake & Output 06/16/21 06/17/21 06/17/21 18:59 06:59 18:59 Output Total 500 1100 Balance -500 -1100 Output: Urine 500 1100 Other: Voiding Method External Catheter - Exam Constitutional: No acute distress, conversant, pleasant Eyes:Anicteric sclerae, moist conjunctiva, no lid-lag, PERRLA, ENMT: Oropharynx clear, no erythema, exudates Neck: Supple, FROM, no masses, or JVD, No carotid bruits, No thyromegaly Lungs: Clear to auscultation, Clear to percussion, Normal respiratory effort, no accessory muscle use Cardiovascular: Heart regular in rate and rhythm, No murmurs, gallops, or rubs, No peripheral edema Abdominal: Soft, Nontender, no guarding, rebound or rigidity, Normoactive bowel sounds, No hepatomegaly, No splenomegaly, No palpable mass Skin: Normal temperature, tone, texture, turgor, no induration, No subcutaneous nodules, No rash, lesions, No ulcers Extremities: Left ankle dressings applied. No digital cyanosis, No clubbing, Pedal pulses intact and symmetrical, Radial pulses intact and symmetrical, No calf tenderness Psychiatric: Alert and oriented to person, place and time, appropriate affect, intact judgement Neuro: Muscles Strength 5/5 in all 4 extremities, Sensation to light touch grossly present throughout, Cranial nerves II-XII grossly intact, no focal sensory deficits - Labs CBC & Chem 7: 06/16/21 04:40 06/17/21 08:32 Labs: Abnormal Lab Results - Last 24 Hours (Table) 06/16/21 06/16/21 06/16/21 Range/Units 11:47 16:36 20:19 Sodium (137-145) mmol/L Potassium (3.5-5.1) mmol/L Glucose (74-99) mg/dL POC Glucose (mg/dL) 130 H 178 H 112 H (75-99) mg/dL Magnesium (1.6-2.3) mg/dL 06/17/21 06/17/21 Range/Units 07:14 08:32 Sodium 135 L (137-145) mmol/L Potassium 3.4 L (3.5-5.1) mmol/L Glucose 187 H (74-99) mg/dL POC Glucose (mg/dL) 133 H (75-99) mg/dL Magnesium 1.5 L (1.6-2.3) mg/dL Assessment and Plan Plan: status post open reduction internal fixation bimalleolar fracture left ankle Post op day number 3 pain control and DVT pPX per ortho DM on oral hypoglycemic agent hold metformin insulin sliding scale A1c 8.9, will start linagliptin upon discharge. TYREL Resolved. Vit [place] with 47602 units weekly for 3 months. Plan for rehab, will arrange.
[2021-06-17] MEDS ORDERED: POTASSIUM CHLORIDE ER 20 MEQ TAB.ER PO STA (10:33)
[2021-06-17 11:45] LABS: Glucose,Whole Blood 143 mg/dL (75-99)
[2021-06-17] MEDS: MAGNESIUM SULFATE-D5W PMX 1 GM in DEXTROSE/WATER 1 100ML.BAG IVPB SCH ×2 (12:07→14:01)
--- NOTE | 2021-06-17 12:51 | P.DS ---
Providers Expected date of discharge: 06/17/21 Attending physician: Nicholas Proctor Consults: 06/14/21 18:52 Consult Physician Routine Consulting Provider: Isaac Siddiqui Consult Reason/Comments: medical management Do you want consulting provider notified?: Yes Primary care physician: Stated None Hospital Course: This patient is a 70-year-old female who sustained a fall resulting in a left ankle fracture. Patient was initially seen in the office by Dr. Proctor and placed into a well-padded bulky Adame splint. Patient underwent an open reduction and internal fixation of left trimalleolar ankle fracture on 06/14/[address] Proctor. The procedure is performed without complication or sequelae. The patient is doing well postoperatively. Vital signs are stable on post-op day #3. The patient is examined bedside this morning. She states the pain in her left ankle is well-controlled. She has been working with physical therapy and states she has been remaining nonweightbearing on the operative leg. She is tolerating her diet well. She overall feels well. She denies chest pain, shortness breath, nausea, vomiting, fevers, chills. No new complaints or concerns this morning. On examination, the patient is sitting up in bed in no acute distress. Patient is alert and orientated x3. On inspection of the left lower extremity, there is a bulky Adame splint in place. Splint is clean, dry, intact. Patient is able to wiggle left toes without issue. The toes are warm and well-perfused with brisk capillary refill. Motor and sensory function is intact of the left lower extremity. No pain at passive range of motion of the left toes. Right calf is soft and nontender to palpation. The patient is discharged to subacute rehab today, pending medical clearance. Please refer to the med rec for accurate list of medications. She is instructed to follow-up in the office in [address] Proctor for wound check. Plan - Discharge Summary Discharge Rx Participant: Yes New Discharge Prescriptions: New Aspirin 81 mg PO BID 30 Days #60 tab Linagliptin [Tradjenta] 5 mg PO DAILY 30 Days #30 tab Acetaminophen Tab [Tylenol] 650 mg PO Q6HR PRN tab PRN Reason: Fever And/ Or Pain Ergocalciferol [Vitamin D2 (1250 Mcg = 43855 Iu)] 1,250 mcg PO WEEKLY 90 Days #11 cap HYDROcodone/APAP 5-325MG [[place] 5-325] 1 tab PO Q6HR PRN 7 Days #20 tab PRN Reason: Pain Sennosides-Docusate Sodium [Senokot-S] 2 each PO HS PRN 10 Days #20 tab PRN Reason: Constipation Continue metFORMIN HCL [Glucophage] 500 mg PO BID #20 tab Ondansetron Odt [Zofran ODT] 4 mg PO Q8HR PRN #10 tab PRN Reason: Nausea Discontinued HYDROcodone/APAP 5-325MG [[place] 5-325] 1 tab PO Q4HR PRN 3 Days #18 tab PRN Reason: Pain Discharge Medication List Ondansetron Odt [Zofran ODT] 4 mg PO Q8HR PRN #10 tab 06/04/21 [Rx] metFORMIN HCL [Glucophage] 500 mg PO BID #20 tab 06/04/21 [Rx] Aspirin 81 mg PO BID 30 Days #60 tab 06/14/21 [Rx] Acetaminophen Tab [Tylenol] 650 mg PO Q6HR PRN tab 06/17/21 [Rx] Ergocalciferol [Vitamin D2 (1250 Mcg = 81157 Iu)] 1,250 mcg PO WEEKLY 90 Days #11 cap 06/17/21 [Rx] HYDROcodone/APAP 5-325MG [[place] 5-325] 1 tab PO Q6HR PRN 7 Days #20 tab 06/17/21 [Rx] Linagliptin [Tradjenta] 5 mg PO DAILY 30 Days #30 tab 06/17/21 [Rx] Sennosides-Docusate Sodium [Senokot-S] 2 each PO HS PRN 10 Days #20 tab 06/17/21 [Rx] Follow up Appointment(s)/Referral(s): Nicholas Proctor MD [Medical Doctor] - 1 Week Activity/Diet/Wound Care/Special Instructions: Strict non-weight bearing operative leg. Keep splint clean, dry, intact. Keep operative leg elevated for swelling control. Take pain medications as prescribed. Take aspirin 81mg twice a day for blood clot prevention. Follow-up in the office with Dr. Proctor in one week for a wound check. Call the office with any questions or concerns, Discharge Disposition: TRANSFER TO SNF/ECF
[2021-06-17 14:26] VITALS: BP 152/71; PULSE 80; RESP 18; TEMP 98.4
== END 2021-06-17 16:28 ==
LOC: OR 12:44 → 4SSUR 18:33 → OR 06-17 16:28
PROVIDERS: ATTEND Orthopaedic Surgery
DX: S82.852A Displaced trimalleolar fracture of left lower leg, initial encounter for closed fracture (principal); W19.XXXA Unspecified fall, initial encounter; E11.621 Type 2 diabetes mellitus with foot ulcer; L97.421 Non-pressure chronic ulcer of left heel and midfoot limited to breakdown of skin; E11.65 Type 2 diabetes mellitus with hyperglycemia; I51.9 Heart disease, unspecified; E55.9 Vitamin D deficiency, unspecified; N19 Unspecified kidney failure; Z91.19 Patient's noncompliance with other medical treatment and regimen; Z20.822 Contact with and (suspected) exposure to COVID-19; Z87.891 Personal history of nicotine dependence; Z79.84 Long term (current) use of oral hypoglycemic drugs; Z88.5 Allergy status to narcotic agent; Z97.3 Presence of spectacles and contact lenses; Z97.2 Presence of dental prosthetic device (complete) (partial); Z83.3 Family history of diabetes mellitus
CPT/HCPCS: 97162; 97166; 64447; 64445; 76942; 80048 ×2; 82040; 83735; 85025; 82306; 83036; 87635; 73600; 27814; C1713; J2250; J1200; J1100; J2710; J0690 ×2; J2405; J2001; J3010; J1170; J3475; J2795; J2370; J0330; J2704

== ENCOUNTER 2021-07-29 05:58 | Inpatient (IN) | payer MEDICARE ==
[2021-07-26 10:40] VITALS: BMI 23.1
[2021-07-29] MEDS ORDERED: ONDANSETRON 4 MG/2 ML VIAL IVP ONE (06:34)
[2021-07-29] MEDS ORDERED: DEXAMETHASONE SOD PHOSPHATE 4 MG/ML 1 ML VIAL IV ONE (06:34)
[2021-07-29] MEDS ORDERED: NITROGLYCERIN-D5W PMX 50 MG in DEXTROSE/WATER 1 250ML.BAG IV SCH (07:00)
[2021-07-29] MEDS ORDERED: fentaNYL (PF) 50 MCG/ML 2 ML AMP IV PRN (07:00)
[2021-07-29] MEDS: LACTATED RINGERS 1,000 ML IV SCH ×3 (07:16→08:00)
[2021-07-29] MEDS: LIDOCAINE 1% (10MG/ML) FOR IV START INTRADERMA PRN ×2 (07:17→07:45)
[2021-07-29 07:18] LABS: Glucose,Whole Blood 104 mg/dL (75-99)
--- NOTE | 2021-07-29 07:53 | P.HPIHPCON ---
History of Present Illness H&P Date: 07/29/21 Chief Complaint: Left femoral occlusion with secondary nonhealing surgical wound left lower Patient is a 70-year-old female who last fall fracture left ankle requiring operative intervention. Unfortunately this wound has opened. A vascular standpoint the patient had a femoral pulse however had absent popliteal, DP and PT pulses. Because of her nonhealing wound and physical examination is felt that her underlying wound healing issues that of arterial insufficiency. To that extent she had undergone a abdominal aortogram with runoffs with hope for percutaneous intervention. Angiogram demonstrated a long SFA segment occlusion not amenable to percutaneous intervention. Patient is now offered surgical revascularization. She did undergo vein mapping which demonstrated adequate vein for revascularization purposes. Arterial Doppler was limited owing to her surgical wound however digital waveforms are flat and no digital blood pressure could be obtained. It is felt that surgical revascularization is appropriate given her nonhealing wound and evidence of peripheral vascular disease. Consent for Procedure: I have explained the operation/procedure to the patient, including the risks, benefits, side effects, alternative therapies (including not receiving the proposed treatment or service), the likelihood of the patient achieving his/her goals, and potential recuperation problems for the procedure/sedation/analgesia, as well as any blood products, if indicated. I also explained to the patient the risks, benefits and side effects of the alternatives, as well as the risks related to not receiving the proposed procedure, care, treatment, or services. Past Medical History Past Medical History: Diabetes Mellitus, Hyperlipidemia, Hypertension, Myocardial Infarction ([place]) Additional Past Medical History / Comment(s): DM type 2. Last Myocardial Infarction Date:: 1989 History of Any Multi-Drug Resistant Organisms: None Reported Past Surgical History: No Surgical Hx Reported Additional Past Surgical History / Comment(s): "Female surgery to help with ." Past Anesthesia/Blood Transfusion Reactions: No Reported Reaction Past Psychological History: No Psychological Hx Reported Smoking Status: Former smoker Past Alcohol Use History: Rare Additional Past Alcohol Use History / Comment(s): Quit smoking 28 yrs ago. Additional Drug Use History / Comment(s): "Pot once in a great while". - Past Family History Mother Family Medical History: No Reported History Medications and Allergies Home Medications Medication Instructions Recorded Confirmed Type Aspirin 81 mg PO DAILY 07/16/21 07/26/21 History Ergocalciferol [Vitamin D2 (1250 1,250 mcg PO TU 07/16/21 07/26/21 History Mcg = 02726 Iu)] Magnesium Oxide [Magox 400] 400 mg PO HS 07/16/21 07/26/21 History Pro-Stat 30 ml PO BID 07/16/21 07/26/21 History Sennosides-Docusate Sodium 2 tab PO DAILY 07/16/21 07/26/21 History [Senokot-S] metFORMIN HCL [Glucophage] 500 mg PO BID 07/16/21 07/26/21 History Docusate [Colace] 100 mg PO BID 30 Days #60 cap 07/24/21 07/26/21 Rx Melatonin 5 mg PO HS tablet 07/24/21 07/26/21 Rx Vancomycin HCl in 5 % Dextrose 1 gm IV Q16H #30 each 07/24/21 07/26/21 Rx [Vancomycin 1 Gram/250 ml-D5w] Acetaminophen [Tylenol] 650 mg PO Q6H PRN 07/26/21 07/26/21 History HYDROcodone/APAP 5-325MG [[place] 1 tab PO Q6HR PRN 07/26/21 07/26/21 History 5-325] Linagliptin [Tradjenta] 5 mg PO DAILY 07/26/21 07/26/21 History Tamsulosin [Flomax] 0.4 mg PO DAILY 07/26/21 07/26/21 History amLODIPine BESYLATE 10 mg PO HS 07/26/21 07/26/21 History cefTRIAXone SODIUM 2 gm IV Q24H 07/26/21 07/26/21 History Allergies Allergy/AdvReac Type Severity Reaction Status Date / Time codeine AdvReac Itching Verified 07/29/21 06:52 Surgical - Exam Osteopathic Statement: *. No significant issues noted on an osteopathic structural exam other than those noted in the History and Physical/Consult. - General well developed, well nourished, no distress - Neck no masses, no bruits, trachea midline, no lymphadectomy - Respiratory normal expansion, normal respiratory effort, clear to percussion, clear to auscultation - Cardiovascular Heart Sounds: normal: S1, S2 - Abdomen Abdomen: soft, non tender (Femoral pulses are intact bilaterally while the popliteal, DP and PT pulses are absent bilaterally. There is a wound VAC at the left ankle level. Toes are freely movable and nontender bilaterally. No leg edema is noted either lower extremity.) Results - Labs Abnormal Lab Results - Last 24 Hours (Table) 07/29/21 Range/Units 07:07 POC Glucose (mg/dL) 104 H (75-99) mg/dL - Imaging Additional studies: Abdominal aortogram with runoffs was removed reviewed. Assessment and Plan Assessment: #1: Left femoral occlusion with significant arterial insufficiency resulting in a non-healing surgical wound. #2: History of tobacco abuse. #3: Diabetes mellitus. Plan: #1: Left femoral to popliteal/tibial in situ vein bypass graft. Time with Patient: Less than 30
[2021-07-29] MEDS ORDERED: PROPOFOL 10 MG/ML 20 ML VIAL IV ONE (07:56)
[2021-07-29] MEDS ORDERED: MIDAZOLAM 2 MG/2 ML VIAL ONE (07:56)
[2021-07-29] MEDS ORDERED: ePHEDrine 50 MG/ML 1 ML VIAL ONE (07:56)
[2021-07-29] MEDS ORDERED: fentaNYL (PF) 50 MCG/ML 2 ML AMP ONE (07:56)
[2021-07-29] MEDS ORDERED: HEPARIN SODIUM,PORCINE 10,000 UNIT/ML 1 ML VIAL ONE (07:56)
[2021-07-29] MEDS ORDERED: HYDROmorphone (PF) 1 MG/ML ONE (07:56)
[2021-07-29] MEDS ORDERED: GLYCOPYRROLATE 0.2 MG/ML 2 ML VIAL ONE (07:56)
[2021-07-29] MEDS ORDERED: SUCCINYLCHOLINE CHLORIDE 100 MG/5 ML SYR IV ONE (07:56)
[2021-07-29] MEDS ORDERED: NEOSTIGMINE 1 MG/ML 10 ML VIAL ONE (07:56)
[2021-07-29] MEDS ORDERED: PHENYLEPHRINE-0.9% NACL SYG 1,000 MCG/10 ML SYRINGE ONE (07:56)
[2021-07-29] MEDS ORDERED: ROCURONIUM 10 MG/ML (5 ML VIAL) IV ONE (07:56)
[2021-07-29] MEDS ORDERED: LIDOCAINE 1% INJ 10MG/ML (20 ML MDV) ONE (07:56)
[2021-07-29] MEDS ORDERED: ceFAZolin 4,000 MG in SODIUM CHLORIDE 0.9% 1,000 ML IRRIGATION ONE (08:32)
[2021-07-29] MEDS ORDERED: HEPARIN SODIUM,PORCINE 10,000 UNIT in SODIUM CHLORIDE 0.9% 1,000 ML IRRIGATION ONE (08:32)
[2021-07-29] MEDS ORDERED: LACTATED RINGERS 1,000 ML IV ONE ×2 (11:46)
[2021-07-29] MEDS ORDERED: SODIUM CHLORIDE 0.9% 50 ML with ceFAZolin 2 GM IV ONE ×4 (11:47)
[2021-07-29] MEDS ORDERED: MAG HYDROX/AL HYDROX/SIMETH 30 ML CUP PO PRN (12:43)
[2021-07-29] MEDS ORDERED: MORPHINE SULFATE 2 MG/ML SYRINGE IVP PRN (12:43)
[2021-07-29 13:07] LABS: Glucose,Whole Blood 159 mg/dL (75-99)
--- NOTE | 2021-07-29 13:12 | P.OP ---
Date of Procedure: 07/29/21 Preoperative Diagnosis: #1: Left femoral occlusion. #2: Significant left tibial artery occlusive disease. #3: Nonhealing surgical wound left ankle/foot area secondary to #1 and #2. Postoperative Diagnosis: Same. Procedure(s) Performed: #1: Left femoral to popliteal in situ vein bypass graft. #2: Left common femoral thromboendarterectomy with patch angioplasty. Anesthesia: GETA Surgeon: Juancho Vilchis [place] Machine Operator #1: David Sharpe Estimated Blood Loss (ml): 220 Pathology: none sent Condition: stable Disposition: floor Indications for Procedure: Patient is a 70-year-old female with a long-standing history of diabetes mellitus as well as lower extremity peripheral arterial occlusive disease. She had experienced a fracture requiring operative repair of the left lower extremity. These wounds have been slow to heal. Physical examination demonst rated fine skin consistent with significant arterial insufficiency. In an effort to improve healing operative site is offered surgical bypass as anatomy was not conducive for percutaneous intervention. The procedure, risk and benefits were discussed with the patient. Patient wished to proceed. Description of Procedure: Patient was brought the upper and placed in supine position Mr. general endotracheal anesthesia delivered by the department of anesthesiology. Colby catheter is placed to gravity drainage. Patient received 2 g of Ancef administered intravenously in the perioperative phase for prophylactic antibiotic therapy. Patient's left lower extremity sterilely prepped and draped in usual manner. Skin incision was made over the left inguinal area and carried down through the subcu change tissues. Hemostasis was achieved using electrocautery. Lymphatic layer was divided laterally swept medially exposing femoral sheath. This was opened and entrance was gained into the femoral sheath. The cyst proximal portion of the superficial femoral artery was identified. The dissection was then carried cephalad to the inguinal ligament. The origins of the common femoral, superficial femoral and profundus femoris arteries were encircled Vesseloops. Significant plaque was identified at the common level. Attention was turned to the saphenous vein. This was identified and dissected free of investing tissues and its confluence with the femoral vein was identified. The vein appeared adequate for bypass purposes. Simultaneously skin incision was made in the proximal calf area along the medial aspect. Incision was deepened through the subcu change tissues. Care was taken to avoid the great saphenous vein. Incision was deepened and entrance was gained into the distal popliteal space. A number of crossing veins were encountered. These were mobilized, ligated and divided. This exposed the distal popliteal artery as well as the origin of the anterior tibial tibial peroneal trunk. The great saphenous vein was identified dissected free of investing tissues. The vein itself appeared to be of adequate quality for bypass purposes. The patient was systemically heparinized. After adequate circulation time vessel loops surrounding the femoral vessels were drawn closed. ACT is were drawn and additional doses of heparin were administered based on ACT results drawn every half hour. Arteriotomy was made in the common femoral artery and extended to the origin of the superficial femoral. A large amount of bulky plaque was encountered impeding flow through the profundus system. It was appropriate to perform a thromboendarterectomy. With this procedure marked improvement in retrograde flow through the profundus was identified. The profundus was flushed with heparinized saline solution. The luminal surface was inspected for any loose or free-floating material and this was removed where identified. Patch angioplasty closure of this arteriotomy was performed with bovine pericardial patch and 6-0 Prolene suture placed in running fashion. Just prior to completion of the anastomotic line the profundus was backbled and the common femoral was 4 bled and no thrombus was retrieved. The anastomotic line was completed. Excellent pulsatile flow was identified. Attention was turned the great saphenous vein at its junction with the femoral vein. This was clamped and the femoral vein stump was oversewn with Prolene suture. The great saphenous vein was mobilized. Side branches were ligated and divided where identified. The vein reach the patched portion of the femoral artery. Once again the femoral artery was occluded and the arteriotomy and the patch was made and extended with Crowley scissors. The vein graft reached to the artery without undue tension. End-to-side anastomosis was greater with 6-0 Prolene suture placed in running fashion. Just prior to completion anastomotic line a little retrieved valvotome had been brought from the distal portion of the great saphenous vein which had previously been transected and ligated distally. The valvulotome past through to the proximal portion of the great saphenous vein without incident. The anastomotic line was then completed. Flow was restored into the vein graft and profundus femoris arterial segment. The valvulotome was then utilized to divide the valves. Once this was performed excellent flow through the vein graft was identified. The vein graft was flushed and then occluded. The Vesseloops surrounding the distal popliteal artery were drawn closed. Arteriotomy was made longitudinally in the popliteal artery extended with P[place] scissors. Backbleeding was identified. The vein graft was cut the appropriate length and spatulated to match the arteriotomy. End-to-side anastomosis was greater with 6-0 Prolene suture placed in running fashion. Just prior to completion anastomotic line the vein graft was flushed and the artery backbled and no thrombus was retrieved. The anastomotic line was then completed and flow restored into the popliteal artery via the vein graft. Excellent pulse within the vein graft as well as the mcgrath arterial tree was noted. Utilizing ultrasound the length of the vein graft was inspected for side branches. Where identified skin incision was made over each side branches and the side branch was then ligated or clipped as felt appropriate. All wounds were irrigated with antibiotic taking solution. Hemostasis was judged be adequate. Doppler flows through the vein graft was appropriate. The patient's foot was noted to pink up nicely. Deep tissues were closed each wound with 3-0 Vicryl. The inguinal wound was closed with 4-0 Vicryl placed in running and her dermal fashion. Remaining incisions were closed with skin cristian. Proper dressings were applied. Patient tolerated procedure well, awoke without apparent complication was transferred to the recovery area satisfactory and stable condition.
[2021-07-29 16:47] LABS: Glucose,Whole Blood 187 mg/dL (75-99)
[2021-07-29] MEDS: CLOPIDOGREL 75 MG TAB PO SCH (17:17)
[2021-07-29] MEDS: ASPIRIN 325 MG TAB PO SCH (17:17)
[2021-07-29] MEDS: SODIUM CHLORIDE 0.9% 1,000 ML IV SCH (17:18)
[2021-07-29] MEDS: HYDROcodone/APAP 5-325MG 1 EACH TAB PO PRN (17:21)
[2021-07-29] MEDS ORDERED: ACETAMINOPHEN TAB 325 MG TAB PO PRN (19:34)
[2021-07-29] MEDS: amLODIPine 10 MG TAB PO SCH (20:28)
[2021-07-29] MEDS: ATORVASTATIN 20 MG TAB PO SCH (20:28)
[2021-07-29] MEDS: MELATONIN 5 MG TABLET PO SCH (20:29)
[2021-07-30 00:32] LABS: Glucose,Whole Blood 143 mg/dL (75-99)
[2021-07-30] MEDS: INSULIN ASPART (NovoLOG) 100 UNIT/ML VIAL SQ SCH ×5 (00:39→20:11)
[2021-07-30] MEDS: SODIUM CHLORIDE 0.9% 1,000 ML IV SCH ×3 (00:40→20:39)
[2021-07-30] MEDS: HYDROcodone/APAP 5-325MG 1 EACH TAB PO PRN ×4 (01:35→23:15)
--- NOTE | 2021-07-30 05:09 | P.CONS ---
History of Present Illness - Reason for Consult Consult date: 07/29/21 post op medical managmeent Requesting physician: Juancho Vilchis - Chief Complaint PAD, non healing surgical wound - History of Present Illness 70 year old female with DM, PAD patient sustained a fracture in her left ankle secondary to a fall, however, she had delayed post op wound healing, which triggered further workup and revealed severe PAD not treatable percutaneously for which she was offered surgical options. she underwent left femoral endarterectomy and left femoro popliteal graft bypass. she tolerated procedure well, denies any immediate observed post op complications, denies any chest pain or trouble breathing Review of Systems Pertinent positives as noted in HPI. All other systems were reviewed and are negative Past Medical History Past Medical History: Diabetes Mellitus, Hyperlipidemia, Hypertension, Myocardial Infarction ([place]) Additional Past Medical History / Comment(s): DM type 2. Last Myocardial Infarction Date:: 1989 History of Any Multi-Drug Resistant Organisms: None Reported Past Surgical History: No Surgical Hx Reported Additional Past Surgical History / Comment(s): "Female surgery to help with ." Past Anesthesia/Blood Transfusion Reactions: No Reported Reaction Past Psychological History: No Psychological Hx Reported Smoking Status: Former smoker Past Alcohol Use History: Rare Additional Past Alcohol Use History / Comment(s): Quit smoking 28 yrs ago. Additional Drug Use History / Comment(s): "Pot once in a great while". - Past Family History Mother Family Medical History: No Reported History Medications and Allergies Home Medications Medication Instructions Recorded Confirmed Type Aspirin 81 mg PO DAILY 07/16/21 07/29/21 History Ergocalciferol [Vitamin D2 (1250 1,250 mcg PO TU 07/16/21 07/29/21 History Mcg = 23896 Iu)] Magnesium Oxide [Magox 400] 400 mg PO HS 07/16/21 07/29/21 History Pro-Stat 30 ml PO BID 07/16/21 07/29/21 History Sennosides-Docusate Sodium 2 tab PO DAILY 07/16/21 07/29/21 History [Senokot-S] metFORMIN HCL [Glucophage] 500 mg PO BID 07/16/21 07/29/21 History Docusate [Colace] 100 mg PO BID 30 Days #60 cap 07/24/21 07/29/21 Rx Melatonin 5 mg PO HS tablet 07/24/21 07/29/21 Rx Vancomycin HCl in 5 % Dextrose 1 gm IV Q16H #30 each 07/24/21 07/29/21 Rx [Vancomycin 1 Gram/250 ml-D5w] Acetaminophen [Tylenol] 650 mg PO Q6H PRN 07/26/21 07/29/21 History HYDROcodone/APAP 5-325MG [[place] 1 tab PO Q6HR PRN 07/26/21 07/29/21 History 5-325] Linagliptin [Tradjenta] 5 mg PO DAILY 07/26/21 07/29/21 History Tamsulosin [Flomax] 0.4 mg PO DAILY 07/26/21 07/29/21 History amLODIPine BESYLATE 10 mg PO HS 07/26/21 07/29/21 History cefTRIAXone SODIUM 2 gm IV Q24H 07/26/21 07/29/21 History Allergies Allergy/AdvReac Type Severity Reaction Status Date / Time codeine AdvReac Itching Verified 07/29/21 06:52 Physical Exam Vitals: Vital Signs Temp Pulse Pulse Resp BP BP BP 07/30/21 02:00 73 18 07/30/21 00:00 73 18 130/60 07/29/21 20:00 98.0 F 74 16 119/58 07/29/21 16:45 76 16 115/59 07/29/21 16:15 82 16 116/56 07/29/21 15:45 73 16 124/60 07/29/21 15:30 73 16 131/62 07/29/21 15:15 72 16 126/55 07/29/21 15:00 74 16 130/61 07/29/21 14:45 97.8 F 79 18 119/58 07/29/21 14:30 74 16 126/62 07/29/21 14:15 74 16 124/60 07/29/21 14:00 69 16 124/60 07/29/21 13:45 71 16 122/58 07/29/21 13:30 70 16 122/59 07/29/21 13:15 71 16 122/60 07/29/21 13:04 76 16 115/57 07/29/21 13:00 74 16 121/58 07/29/21 12:41 97.0 F L 86 16 123/57 07/29/21 07:18 98.5 F 76 20 141/63 142/63 Pulse Ox 07/30/21 02:00 07/30/21 00:00 99 07/29/21 20:00 97 07/29/21 16:45 95 07/29/21 16:15 99 07/29/21 15:45 100 07/29/21 15:30 96 07/29/21 15:15 94 L 07/29/21 15:00 94 L 07/29/21 14:45 95 07/29/21 14:30 100 07/29/21 14:15 100 07/29/21 14:00 99 07/29/21 13:45 91 L 07/29/21 13:30 100 07/29/21 13:15 100 07/29/21 13:04 99 07/29/21 13:00 99 07/29/21 12:41 99 07/29/21 07:18 98 Intake and Output 07/29/21 07/29/21 07/30/21 14:59 22:59 06:59 Intake Total 1902 118 Output Total 540 Balance 1362 118 Intake: IV 1902 Oral 118 Output: Urine 290 Estimated Blood Loss 250 Other: Voiding Method Indwelling Catheter Indwelling Catheter Indwelling Catheter Weight 65.1 kg Constitutional: No acute distress, conversant, pleasant Eyes: Anicteric sclerae, moist conjunctiva, Pupils equal round reactive to light ENMT: NC/AT Oropharynx clear, no erythema, or exudates Neck: Supple, FROM, no masses, or JVD No carotid bruits No thyromegaly Lungs: Clear to auscultation Clear to percussion Normal respiratory effort, no accessory muscle use Cardiovascular: Heart regular in rate and rhythm, No murmurs, gallops, or rubs No peripheral edema Abdominal: Soft Nontender, no guarding, rebound or rigidity Abdomen moving with respiration Normoactive bowel sounds No hepatomegaly, No splenomegaly No palpable mass No abdominal wall hernia noted Extremities: No digital cyanosis No clubbing left lower extrmity in surgical dressing capillary refill immediate Psychiatric: Alert and oriented to person, place and time Appropriate affect fair judgement Neuro Muscles Strength 5/5 in bilateral upper extremities , lower extremities limited due to recent surgery Sensation to light touch grossly present throughout Cranial nerves II-XII grossly intact No focal sensory deficits Lymphatics: no palpable cervical or supraclavicular , or inguinal lymph nodes Results CBC & Chem 7: 07/29/21 07:10 Labs: Abnormal Lab Results - Last 24 Hours (Table) 07/29/21 07/29/21 07/29/21 Range/Units 07:07 07:10 12:56 Potassium 3.3 L (3.5-5.1) mmol/L POC Glucose (mg/dL) 104 H 159 H (75-99) mg/dL 07/29/21 07/30/21 Range/Units 16:34 00:30 Potassium (3.5-5.1) mmol/L POC Glucose (mg/dL) 187 H 143 H (75-99) mg/dL Assessment and Plan Assessment: severe peripheral arterial disease poor healing left ankle wound s/p left femoro popliteal graft bypass, POD #zero management per primary chronic conditions DM , resume home meds trajenta , and insulin sliding scale hypertension , resume home BP meds HLD, resume statin full code DVT PPX per primary follow up CBC , CMP Thank you for allowing us to participate in the care of this patient. Do not hesitate to contact us with questions. Someone can be reached from the [facility] hospitalist group at all hours of the day at [phone].
[2021-07-30 06:09] LABS: Glucose,Whole Blood 115 mg/dL (75-99)
[2021-07-30] MEDS ORDERED: ERGOCALCIFEROL 1,250 MCG (50,000 IU) CAPSULE PO SCH (08:00)
[2021-07-30] MEDS: DOCUSATE 100 MG CAP PO SCH (08:55)
[2021-07-30] MEDS: CLOPIDOGREL 75 MG TAB PO SCH (08:55)
[2021-07-30] MEDS: LINAGLIPTIN 5 MG TABLET PO SCH (08:55)
[2021-07-30] MEDS: TAMSULOSIN 0.4 MG CAP.ER.24H PO SCH (08:55)
[2021-07-30] MEDS: SENNOSIDES-DOCUSATE SODIUM 1 EACH TAB PO SCH ×2 (08:55→10:57)
[2021-07-30] MEDS: ASPIRIN 325 MG TAB PO SCH (08:55)
[2021-07-30 09:45] LABS: HCT 26.7 % (34.0-46.0); Hypochromasia Marked; MCH 28.8 pg (25.0-35.0); MCHC 31.8 g/dL (31.0-37.0); MCV 90.7 fL (80.0-100.0); Mean Platelet Volume 7.8; Platelet Count 342 k/uL (150-450); Poikilocytosis Slight; RBC 2.95 m/uL (3.80-5.40); RDW 15.5 % (11.5-15.5); WBC 11.8 k/uL (3.8-10.6)
[2021-07-30 09:56] LABS: HGB 8.5 gm/dL (11.4-16.0)
[2021-07-30 10:07] LABS: Albumin 2.7 g/dL (3.5-5.0); Calcium 8.7 mg/dL (8.4-10.2); Magnesium 1.6 mg/dL (1.6-2.3); Potassium 3.8 mmol/L (3.5-5.1); Total Bilirubin 0.4 mg/dL (0.2-1.3); Total Protein 5.8 g/dL (6.3-8.2)
[2021-07-30 11:30] LABS: Glucose,Whole Blood 139 mg/dL (75-99)
--- NOTE | 2021-07-30 11:57 | P.PN ---
Subjective Progress Note Date: 07/30/21 Seen and examined sitting up in bed. She is postop day #1 for left lower femoral to popliteal in situ vein bypass graft and left common femoral thromboendarterectomy with patch angioplasty. Patient states her pain is well controlled. She also underwent recent surgery and still has her sutures in. Patient is afebrile, denies any fevers or chills. Objective - Vital Signs Vital signs: Vital Signs Temp 98.2 F 07/30/21 08:00 Pulse 80 07/30/21 08:00 Resp 18 07/30/21 08:00 BP 114/54 07/30/21 08:00 Pulse Ox 100 07/30/21 08:00 Intake & Output 07/29/21 07/30/21 07/30/21 18:59 06:59 18:59 Intake Total 2020 118 Output Total 540 400 550 Balance 1480 -400 -432 Weight 65.1 kg 64.2 kg Intake: IV 1902 Oral 118 118 Output: Urine 290 400 550 Estimated Blood Loss 250 Other: Voiding Method Indwelling Catheter Indwelling Catheter - Exam General appearance: The patient is alert, oriented, appears in no acute distress. HET: Head is normocephalic and atraumatic. Pupils are equal and reactive. Neck: Supple without lymphadenopathy. Trachea midline. Heart: S1 S2. Regular rate and rhythm. Lungs: Clear to auscultation bilaterally. Abdomen: Soft, nontender, nondistended. Extremities: No lower extremity edema bilaterally. Left DP and PT signal present. Patient is able to move her left lower extremity wiggle her toes. I ncision line with cristian clean dry and intact. Patient has medial and lateral sutures from previous ankle surgery. Neurological: No focal deficits. Strength and sensation are grossly intact. - Labs CBC & Chem 7: 07/30/21 08:41 07/30/21 08:41 Labs: Abnormal Lab Results - Last 24 Hours (Table) 07/29/21 07/29/21 07/30/21 Range/Units 12:56 16:34 00:30 POC Glucose (mg/dL) 159 H 187 H 143 H (75-99) mg/dL 07/30/21 Range/Units 06:08 POC Glucose (mg/dL) 115 H (75-99) mg/dL Assessment and Plan Assessment: 1. Postop day #1 for left femoral to popliteal in situ vein bypass graft and left common femoral thromboendarterectomy with patch angioplasty 2. Left femoral occlusion 3. Significant left tibial artery occlusive disease 4. Nonhealing surgical wound left ankle/foot Plan: 1. Consult to orthopedic services to evaluate sutures and assess for weightbearing status 2. Consult physical therapy 3. Plavix 75 mg daily The impression and plan of care has been dictated as directed. Dr. Sharpe I performed a history and examination of this patient, discussed the same with the dictator. I agree with the dictator's note ,documented as a scribe. Any additional findings or plans will be noted.
--- NOTE | 2021-07-30 16:20 | P.CNOR ---
History of Present Illness - HPI Consult date: 07/30/21 History of present illness: This patient is a 70- year old female with a past medical history of past medical history of type 2 diabetes with pre-op hemoglobin A1C of 9, history of non-healing wounds that recently underwent left ankle ORIF for left ankle trimalleolar fracture dislocation on 06/14/[address] Proctor. She later developed lateral wound dehiscence and underwent an irrigation and debridement of left lateral ankle wound on 07/16/21. Patient was evaluated by vascular surgery during her admission and surgical re-vascularization was recommended. Patient followed up with vascular surgery as an outpatient and underwent a left femoral to popliteal in situ vein bypass graft and left common femoral thromboendarterectomy with patch angioplasty yesterday. Orthopedic surgery is consulted for recommendations regarding her left ankle. Patient is seen and examined bedside this afternoon. Patient states she is not having any significant pain in the left ankle. She has no specific complaints or concerns. She denies chest pain, shortness of breath, nausea, vomiting. Vital signs stable. Past Medical History Past Medical History: Diabetes Mellitus, Hyperlipidemia, Hypertension, Myocardia l Infarction ([place]) Additional Past Medical History / Comment(s): DM type 2. Last Myocardial Infarction Date:: 1989 History of Any Multi-Drug Resistant Organisms: None Reported Past Surgical History: No Surgical Hx Reported Additional Past Surgical History / Comment(s): "Female surgery to help with ." Past Anesthesia/Blood Transfusion Reactions: No Reported Reaction Past Psychological History: No Psychological Hx Reported Smoking Status: Former smoker Past Alcohol Use History: Rare Additional Past Alcohol Use History / Comment(s): Quit smoking 28 yrs ago. Additional Drug Use History / Comment(s): "Pot once in a great while". - Past Family History Mother Family Medical History: No Reported History Medications and Allergies Home Medications Medication Instructions Recorded Confirmed Type Aspirin 81 mg PO DAILY 07/16/21 07/29/21 History Ergocalciferol [Vitamin D2 (1250 1,250 mcg PO TU 07/16/21 07/29/21 History Mcg = 94545 Iu)] Magnesium Oxide [Magox 400] 400 mg PO HS 07/16/21 07/29/21 History Pro-Stat 30 ml PO BID 07/16/21 07/29/21 History Sennosides-Docusate Sodium 2 tab PO DAILY 07/16/21 07/29/21 History [Senokot-S] metFORMIN HCL [Glucophage] 500 mg PO BID 07/16/21 07/29/21 History Docusate [Colace] 100 mg PO BID 30 Days #60 cap 07/24/21 07/29/21 Rx Melatonin 5 mg PO HS tablet 07/24/21 07/29/21 Rx Vancomycin HCl in 5 % Dextrose 1 gm IV Q16H #30 each 07/24/21 07/29/21 Rx [Vancomycin 1 Gram/250 ml-D5w] Acetaminophen [Tylenol] 650 mg PO Q6H PRN 07/26/21 07/29/21 History HYDROcodone/APAP 5-325MG [Kenly 1 tab PO Q6HR PRN 07/26/21 07/29/21 History 5-325] Linagliptin [Tradjenta] 5 mg PO DAILY 07/26/21 07/29/21 History Tamsulosin [Flomax] 0.4 mg PO DAILY 07/26/21 07/29/21 History amLODIPine BESYLATE 10 mg PO HS 07/26/21 07/29/21 History cefTRIAXone SODIUM 2 gm IV Q24H 07/26/21 07/29/21 History Allergies Allergy/AdvReac Type Severity Reaction Status Date / Time codeine AdvReac Itching Verified 07/29/21 06:52 Physical Examination On examination, patient is lying in bed in no apparent distress. She is alert and oriented 3. A focused examination of the left ankle is conducted. On inspection of the left ankle, there are healing incisions at the lateral and medial ankle with intact nylon sutures. Mild diffuse swelling of the ankle. No drainage, no purulence. Chronic ulceration at the dorsal foot, lateral heel. Foot is warm and well-perfused. Patient is able to wiggle toes appropriately. Dressings in place along the proximal left leg from vascular procedure. Results - Labs Labs: Abnormal Lab Results - Last 24 Hours (Table) 07/29/21 07/30/21 07/30/21 Range/Units 16:34 00:30 06:08 WBC (3.8-10.6) k/uL RBC (3.80-5.40) m/uL Hgb (11.4-16.0) gm/dL Hct (34.0-46.0) % Chloride (98-107) mmol/L BUN (7-17) mg/dL Glucose (74-99) mg/dL POC Glucose (mg/dL) 187 H 143 H 115 H (75-99) mg/dL Total Protein (6.3-8.2) g/dL Albumin (3.5-5.0) g/dL 07/30/21 07/30/21 07/30/21 Range/Units 08:41 08:41 11:29 WBC 11.8 H (3.8-10.6) k/uL RBC 2.95 L (3.80-5.40) m/uL Hgb 8.5 L D (11.4-16.0) gm/dL Hct 26.7 L (34.0-46.0) % Chloride 109 H (98-107) mmol/L BUN 19 H (7-17) mg/dL Glucose 139 H (74-99) mg/dL POC Glucose (mg/dL) 139 H (75-99) mg/dL Total Protein 5.8 L (6.3-8.2) g/dL Albumin 2.7 L (3.5-5.0) g/dL H & H 07/30/21 Range/Units 08:41 Hgb 8.5 L D (11.4-16.0) gm/dL Hct 26.7 L (34.0-46.0) % Result Diagrams: 07/30/21 08:41 07/30/21 08:41 Assessment and Plan Assessment: Left ankle ORIF for left ankle trimalleolar fracture dislocation on 06/14/21 Irrigation and debridement of left lateral ankle wound due to lateral wound dehiscence on 07/16/21 Plan: - Non-weight bearing left ankle. No [id number]-ecupar of left ankle. - Patient may keep CAM boot off in bed. - Keep sutures in at this time. - Would recommend consult with infectious disease Dr. Silva or wound care team for wound care recommendations. - Patient had PICC line placed during last admission, antibiotics per Dr. Silva. - DVT prophylaxis per vascular surgery team. - Will follow patient and make recommendations as needed.
--- NOTE | 2021-07-30 16:24 | P.PN ---
<Rudy Duff - Last Filed: 07/30/21 16:12> Subjective Progress Note Date: 07/30/21 Hospital course: Patient is a very pleasant 70-year-old female with a past medical history of CAD with previous [place], hypertension, hyperlipidemia, poorly controlled diabetes mellitus with an A1c of 8.9%, severe peripheral arterial occlusive disease status post ORIF of left ankle 06/14/21 with delayed wound healing. She is currently admitted to hospital and is status post left femoral-popliteal bypass graft completed by Dr. Mckeon on 07/29/21. We have been consulted to follow along throughout admission for continued medical management. Physical exam: Patient seen and fully evaluated at the bedside. Vital signs reviewed and stable. General: Nontoxic, no distress and appears stated age. Derm: Skin warm and dry, normal coloration for ethnicity. Small ulcers to the toes of left foot. Healing surgical wound to dorsal region of left foot extending up into the left lateral ankle, left medial lower leg and left lateral lower leg. Current incision line with cristian intact. Head: Atraumatic, normocephalic and symmetric. Eyes: EOMs intact, no lid lag, and anicteric sclera Mouth: no lip lesions, mucus membranes moist Cardiovascular: regular rate and rhythm with normal S1S2, no murmur, positive posterior tibial pulses bilaterally, and cap refill < 2 seconds. Lungs: Respirations even, regular, and unlabored on room air. Lungs CTA bilaterally, no rhonchi, no rales, no wheezing, and no accessory muscle usage. Abdominal: soft, nontender to palpation, no guarding, no appreciable organomegaly Ext: ROM intact. No gross muscle atrophy, no edema, no contractures Neuro: Speech clear, face symmetrical and CN II-XII grossly intact with no noted focal neuro deficits Psych: Alert and oriented to person, place, time, and situation. Appropriate and pleasant affect. Assessment and Plan of Care: Severe peripheral arterial disease Poor healing left ankle wound Status post left femoropopliteal bypass graft completed by Dr. Mckeon on 07/29/21 Management per primary admitting vascular surgery team including pain management, weightbearing, DVT prophylaxis, and PT/OT. We will Follow CBC and CMP. Patient currently on DVT prophylaxis with aspirin 325 mg daily. Patient to continue Plavix 75 mg daily. Poorly controlled diabetes mellitus Resume home medications with discharge [address] patient on glycemic protocol with NovoLog sliding scale. Hypertension Monitor vital signs and continue daily medication regimen with amlodipine. Hyperlipidemia Continue daily medication regimen with atorvastatin. Thank you for allowing us to participate in the care of this patient. Do not hesitate to contact us with questions. Someone can be reached from the [facility] hospitalist group at all hours of the day at [phone]. Objective - Vital Signs Vital signs: Vital Signs Temp 98.0 F 07/30/21 15:05 Pulse 79 07/30/21 15:03 Resp 18 07/30/21 15:03 BP 125/57 07/30/21 15:03 Pulse Ox 93 L 07/30/21 15:03 Intake & Output 07/29/21 07/30/21 07/30/21 18:59 06:59 18:59 Intake Total 2020 236 Output Total 540 400 550 Balance 1480 -400 -314 Weight 65.1 kg 64.2 kg Intake: IV 1902 Oral 118 236 Output: Urine 290 400 550 Estimated Blood Loss 250 Other: Voiding Method Indwelling Catheter Indwelling Catheter Indwelling Catheter - Labs CBC & Chem 7: 07/30/21 08:41 07/30/21 08:41 Labs: Abnormal Lab Results - Last 24 Hours (Table) 07/29/21 07/30/21 07/30/21 Range/Units 16:34 00:30 06:08 WBC (3.8-10.6) k/uL RBC (3.80-5.40) m/uL Hgb (11.4-16.0) gm/dL Hct (34.0-46.0) % Chloride (98-107) mmol/L BUN (7-17) mg/dL Glucose (74-99) mg/dL POC Glucose (mg/dL) 187 H 143 H 115 H (75-99) mg/dL Total Protein (6.3-8.2) g/dL Albumin (3.5-5.0) g/dL 07/30/21 07/30/21 07/30/21 Range/Units 08:41 08:41 11:29 WBC 11.8 H (3.8-10.6) k/uL RBC 2.95 L (3.80-5.40) m/uL Hgb 8.5 L D (11.4-16.0) gm/dL Hct 26.7 L (34.0-46.0) % Chloride 109 H (98-107) mmol/L BUN 19 H (7-17) mg/dL Glucose 139 H (74-99) mg/dL POC Glucose (mg/dL) 139 H (75-99) mg/dL Total Protein 5.8 L (6.3-8.2) g/dL Albumin 2.7 L (3.5-5.0) g/dL <Jamila Zaidi - Last Filed: 07/31/21 16:24> Subjective I reviewed the documentation as provided by the CRISTIAN above, who is the original author of this note. I agree with the documented assessment and plan, with the following changes: None Objective - Vital Signs Vital signs: Vital Signs Temp 99.3 F 07/31/21 08:32 Pulse 86 07/31/21 15:39 Resp 18 07/31/21 15:39 BP 132/65 07/31/21 15:39 Pulse Ox 91 L 07/31/21 15:39 Intake & Output 07/30/21 07/31/21 07/31/21 18:59 06:59 18:59 Intake Total 236 20 Output Total 550 400 Balance -314 -380 Intake: IV 20 Invasive Line 1 10 Invasive Line 3 10 Oral 236 Output: Urine 550 400 Other: Voiding Method Indwelling Catheter Indwelling Catheter Indwelling Catheter # Bowel Movements 0 - Labs CBC & Chem 7: 07/31/21 08:28 07/31/21 12:01 Labs: Abnormal Lab Results - Last 24 Hours (Table) 07/31/21 07/31/21 07/31/21 Range/Units 06:14 08:28 08:28 WBC 12.9 H (3.8-10.6) k/uL RBC 2.79 L (3.80-5.40) m/uL Hgb 8.1 L (11.4-16.0) gm/dL Hct 25.3 L (34.0-46.0) % Sodium (137-145) mmol/L Potassium 3.0 L (3.5-5.1) mmol/L Chloride 109 H (98-107) mmol/L BUN 18 H (7-17) mg/dL Glucose 118 H (74-99) mg/dL POC Glucose (mg/dL) 112 H (75-99) mg/dL Calcium 8.2 L (8.4-10.2) mg/dL Total Protein 5.5 L (6.3-8.2) g/dL Albumin 2.5 L (3.5-5.0) g/dL 07/31/21 Range/Units 12:01 WBC (3.8-10.6) k/uL RBC (3.80-5.40) m/uL Hgb (11.4-16.0) gm/dL Hct (34.0-46.0) % Sodium 136 L (137-145) mmol/L Potassium 3.0 L (3.5-5.1) mmol/L Chloride 109 H (98-107) mmol/L BUN 19 H (7-17) mg/dL Glucose 108 H (74-99) mg/dL POC Glucose (mg/dL) (75-99) mg/dL Calcium 8.1 L (8.4-10.2) mg/dL Total Protein (6.3-8.2) g/dL Albumin (3.5-5.0) g/dL
[2021-07-30] MEDS: amLODIPine 10 MG TAB PO SCH (20:39)
[2021-07-30] MEDS: ATORVASTATIN 20 MG TAB PO SCH (20:39)
[2021-07-30] MEDS: MELATONIN 5 MG TABLET PO SCH (20:39)
[2021-07-30] MEDS ORDERED: VANCOMYCIN IV PER PHARMACY 1 EACH MISC MISCELLANE PRN (22:05)
[2021-07-30] MEDS ORDERED: VANCOMYCIN 1,000 MG in SODIUM CHLORIDE 0.9% 250 ML IVPB ONE (22:15)
[2021-07-31] MEDS: LACTATED RINGERS 1,000 ML IV SCH ×2 (05:06→22:20)
[2021-07-31] MEDS: SODIUM CHLORIDE 0.9% 1,000 ML IV SCH ×3 (05:06→20:21)
[2021-07-31] MEDS: INSULIN ASPART (NovoLOG) 100 UNIT/ML VIAL SQ SCH ×4 (05:06→20:17)
[2021-07-31] MEDS: HYDROcodone/APAP 5-325MG 1 EACH TAB PO PRN ×4 (05:39→23:39)
[2021-07-31 06:15] LABS: Glucose,Whole Blood 112 mg/dL (75-99)
[2021-07-31] MEDS: CLOPIDOGREL 75 MG TAB PO SCH (08:35)
[2021-07-31] MEDS: LINAGLIPTIN 5 MG TABLET PO SCH (08:35)
[2021-07-31] MEDS: ASPIRIN 325 MG TAB PO SCH (08:35)
[2021-07-31] MEDS: TAMSULOSIN 0.4 MG CAP.ER.24H PO SCH (08:35)
[2021-07-31 09:09] LABS: HCT 25.3 % (34.0-46.0); HGB 8.1 gm/dL (11.4-16.0); Hypochromasia Moderate; MCV 90.7 fL (80.0-100.0); Mean Platelet Volume 7.7; Platelet Count 295 k/uL (150-450); Poikilocytosis Slight; RBC 2.79 m/uL (3.80-5.40); RDW 15.4 % (11.5-15.5); WBC 12.9 k/uL (3.8-10.6)
[2021-07-31 09:19] LABS: ALT <6 U/L (4-34); AST 16 U/L (14-36); African American GFR (CKD) 83 (>60 ml/min/1.73 sqM); Albumin 2.5 g/dL (3.5-5.0); Alkaline Phosphatase 105 U/L (38-126); Anion Gap 5 mmol/L; Blood Urea Nitrogen 18 mg/dL (7-17); Calcium 8.2 mg/dL (8.4-10.2); Carbon Dioxide 23 mmol/L (22-30); Chloride 109 mmol/L (98-107); Glucose 118 mg/dL (74-99); Magnesium 1.6 mg/dL (1.6-2.3); Non-African American GFR(CKD) 72 (>60 ml/min/1.73 sqM); Sodium 137 mmol/L (137-145); Total Bilirubin 0.5 mg/dL (0.2-1.3); Total Protein 5.5 g/dL (6.3-8.2)
[2021-07-31] MEDS: SENNOSIDES-DOCUSATE SODIUM 1 EACH TAB PO SCH (10:06)
[2021-07-31] MEDS: DOCUSATE 100 MG CAP PO SCH (10:06)
[2021-07-31] MEDS ORDERED: POTASSIUM CHLORIDE ER 20 MEQ TAB.ER PO STA ×2 (10:22→13:15)
--- NOTE | 2021-07-31 10:40 | P.PN ---
<Rudy Duff - Last Filed: 07/31/21 10:11> Subjective Progress Note Date: 07/31/21 Hospital course: Patient is a very pleasant 70-year-old female with a past medical history of CAD with previous [place], hypertension, hyperlipidemia, poorly controlled diabetes mellitus with an A1c of 8.9%, severe peripheral arterial occlusive disease status post ORIF of left ankle 06/14/21 with delayed wound healing. She is currently admitted to hospital and is status post left femoral-popliteal bypass graft completed by Dr. Mckeon on 07/29/21. We have been consulted to follow along throughout admission for continued medical management. Physical exam: Patient seen and fully evaluated at the bedside this morning. She reports feeling okay this morning stating, "I've been better." She reports continued discomfort/pain in left lower extremity. Movement and sensation remains intact. Dressing to left lower extremity is currently clean dry and intact. We have reviewed revealing mild leukocytosis with WBC count of 12.9 and stable hemoglobin of 8.1. Patient to continue outpatient IV antibiotic Rocephin for previously diagnosed . Vital signs reviewed and stable. General: Nontoxic, no distress and appears stated age. Derm: Skin warm and dry, normal coloration for ethnicity. Small ulcers to the toes of left foot. Healing surgical wound to dorsal region of left foot extending up into the left lateral ankle, left medial lower leg and left lateral lower leg. Current incision line to medial mid left lower extremity with cristian/sutures intact. Head: Atraumatic, normocephalic and symmetric. Eyes: EOMs intact, no lid lag, and anicteric sclera Mouth: no lip lesions, mucus membranes moist Cardiovascular: regular rate and rhythm with normal S1S2, no murmur, positive posterior tibial pulses bilaterally, and cap refill < 2 seconds. Lungs: Respirations even, regular, and unlabored on room air. Lungs CTA bilaterally, no rhonchi, no rales, no wheezing, and no accessory muscle usage. Abdominal: soft, nontender to palpation, no guarding, no appreciable organomegaly Ext: ROM intact. No gross muscle atrophy, no edema, no contractures Neuro: Speech clear, face symmetrical and CN II-XII grossly intact with no noted focal neuro deficits Psych: Alert and oriented to person, place, time, and situation. Appropriate and pleasant affect. Assessment and Plan of Care: Severe peripheral arterial disease Poor healing left ankle wound Status post left femoropopliteal bypass graft completed by Dr. Mckeon on 07/29/21 Management per primary admitting vascular surgery team including pain lurdes gement, weightbearing, DVT prophylaxis, and PT/OT. We will Follow CBC and CMP. Patient currently on DVT prophylaxis with aspirin 325 mg daily. Patient to continue Plavix 75 mg daily. Continue outpatient IV antibiotic Rocephin 2 g daily Infectious disease consulted as they are currently managing outpatient IV antibiotics secondary to poor healing of left ankle surgical wound. Poorly controlled diabetes mellitus Resume home medications with discharge [address] patient on glycemic protocol with NovoLog sliding scale. Hypertension Monitor vital signs and continue daily medication regimen with amlodipine. Hyperlipidemia Continue daily medication regimen with atorvastatin. Thank you for allowing us to participate in the care of this patient. Do not hesitate to contact us with questions. Someone can be reached from the [facility] hospitalist group at all hours of the day at [phone]. Objective - Vital Signs Vital signs: Vital Signs Temp 99.3 F 07/31/21 08:32 Pulse 90 07/31/21 08:32 Resp 18 07/31/21 08:32 BP 129/55 07/31/21 08:32 Pulse Ox 93 L 07/31/21 08:32 Intake & Output 07/30/21 07/31/21 07/31/21 18:59 06:59 18:59 Intake Total 236 20 Output Total 550 400 Balance -314 -380 Intake: IV 20 Invasive Line 1 10 Invasive Line 3 10 Oral 236 Output: Urine 550 400 Other: Voiding Method Indwelling Catheter Indwelling Catheter Indwelling Catheter # Bowel Movements 0 - Labs CBC & Chem 7: 07/31/21 08:28 07/31/21 08:28 Labs: Abnormal Lab Results - Last 24 Hours (Table) 07/30/21 07/31/21 07/31/21 Range/Units 11:29 06:14 08:28 WBC 12.9 H (3.8-10.6) k/uL RBC 2.79 L (3.80-5.40) m/uL Hgb 8.1 L (11.4-16.0) gm/dL Hct 25.3 L (34.0-46.0) % Potassium (3.5-5.1) mmol/L Chloride (98-107) mmol/L BUN (7-17) mg/dL Glucose (74-99) mg/dL POC Glucose (mg/dL) 139 H 112 H (75-99) mg/dL Calcium (8.4-10.2) mg/dL Total Protein (6.3-8.2) g/dL Albumin (3.5-5.0) g/dL 07/31/21 Range/Units 08:28 WBC (3.8-10.6) k/uL RBC (3.80-5.40) m/uL Hgb (11.4-16.0) gm/dL Hct (34.0-46.0) % Potassium 3.0 L (3.5-5.1) mmol/L Chloride 109 H (98-107) mmol/L BUN 18 H (7-17) mg/dL Glucose 118 H (74-99) mg/dL POC Glucose (mg/dL) (75-99) mg/dL Calcium 8.2 L (8.4-10.2) mg/dL Total Protein 5.5 L (6.3-8.2) g/dL Albumin 2.5 L (3.5-5.0) g/dL <Jamila Zaidi - Last Filed: 07/31/21 16:22> Subjective I reviewed the documentation as provided by the CRISTIAN above, who is the original author of this note. I agree with the documented assessment and plan, with the following changes: None Objective - Vital Signs Vital signs: Vital Signs Temp 99.3 F 07/31/21 08:32 Pulse 86 07/31/21 15:39 Resp 18 07/31/21 15:39 BP 132/65 07/31/21 15:39 Pulse Ox 91 L 07/31/21 15:39 Intake & Output 07/30/21 07/31/21 07/31/21 18:59 06:59 18:59 Intake Total 236 20 Output Total 550 400 Balance -314 -380 Intake: IV 20 Invasive Line 1 10 Invasive Line 3 10 Oral 236 Output: Urine 550 400 Other: Voiding Method Indwelling Catheter Indwelling Catheter Indwelling Catheter # Bowel Movements 0 - Labs CBC & Chem 7: 07/31/21 08:28 07/31/21 12:01 Labs: Abnormal Lab Results - Last 24 Hours (Table) 07/31/21 07/31/21 07/31/21 Range/Units 06:14 08:28 08:28 WBC 12.9 H (3.8-10.6) k/uL RBC 2.79 L (3.80-5.40) m/uL Hgb 8.1 L (11.4-16.0) gm/dL Hct 25.3 L (34.0-46.0) % Sodium (137-145) mmol/L Potassium 3.0 L (3.5-5.1) mmol/L Chloride 109 H (98-107) mmol/L BUN 18 H (7-17) mg/dL Glucose 118 H (74-99) mg/dL POC Glucose (mg/dL) 112 H (75-99) mg/dL Calcium 8.2 L (8.4-10.2) mg/dL Total Protein 5.5 L (6.3-8.2) g/dL Albumin 2.5 L (3.5-5.0) g/dL 07/31/21 Range/Units 12:01 WBC (3.8-10.6) k/uL RBC (3.80-5.40) m/uL Hgb (11.4-16.0) gm/dL Hct (34.0-46.0) % Sodium 136 L (137-145) mmol/L Potassium 3.0 L (3.5-5.1) mmol/L Chloride 109 H (98-107) mmol/L BUN 19 H (7-17) mg/dL Glucose 108 H (74-99) mg/dL POC Glucose (mg/dL) (75-99) mg/dL Calcium 8.1 L (8.4-10.2) mg/dL Total Protein (6.3-8.2) g/dL Albumin (3.5-5.0) g/dL
--- NOTE | 2021-07-31 10:52 | P.DS ---
Providers Date of admission: 07/29/21 05:58 Expected date of discharge: 07/31/21 Attending physician: Juancho Vilchis, Consults: 07/29/21 12:49 Consult Physician Routine Consulting Provider: Radha Mckay Consult Reason/Comments: Medical management Do you want consulting provider notified?: Yes 07/30/21 08:56 Consult Physician Routine Consulting Provider: Nicholas Proctor Consult Reason/Comments: recent ankle surgery, please evaluate for weight bearing status, sutures Do you want consulting provider notified?: Yes 07/30/21 16:41 Consult Physician Routine Consulting Provider: Freddie Silva Consult Reason/Comments: antibiotic therapy Do you want consulting provider notified?: Yes Primary care physician: Stated None Hospital Course: This is a 70-year-old female with left femoral occlusion with secondary nonhealing surgical wound to left lower extremity. Patient had a fall resulting in a left ankle fracture with the wound opening and not healing. Patient was hospitalized with vascular surgery consulted. Angiogram was performed during that hospitalization demonstrated a long SFA segment occlusion not amenable to percutaneous intervention. The patient was discharged to extended care facility and returned for scheduled left femoral to popliteal in situ vein bypass graft, left common femoral thromboendarterectomy with patch angioplasty. She is postop day #2. Yesterday she was seen and evaluated by orthopedics as requested to determine weightbearing status on the left ankle. She has been working with physical therapy. Plan is for discharge to [facility] today. She's been afebrile, pain has been well-controlled. Incision is clean dry and intact, well approximated with cristian. Patient has range of motion of left lower extremity. The impression and plan of care has been dictated as directed. Dr. Colby I performed a history and examination of this patient, discussed the same with the dictator. I agree with the dictator's note ,documented as a scribe. Any additional findings or plans will be noted. Procedures: Preoperative Diagnosis: #1: Left femoral occlusion. #2: Significant left tibial artery occlusive disease. #3: Nonhealing surgical wound left ankle/foot area secondary to #1 and #2. Postoperative Diagnosis: Same. Procedure(s) Performed: #1: Left femoral to popliteal in situ vein bypass graft. #2: Left common femoral thromboendarterectomy with patch angioplasty. Patient Condition at Discharge: Stable Plan - Discharge Summary Discharge Rx Participant: No New Discharge Prescriptions: No Action metFORMIN HCL [Glucophage] 500 mg PO BID Ergocalciferol [Vitamin D2 (1250 Mcg = 78955 Iu)] 1,250 mcg PO TU Aspirin 81 mg PO DAILY Melatonin 5 mg PO HS tablet Acetaminophen [Tylenol] 650 mg PO Q6H PRN PRN Reason: Pain amLODIPine BESYLATE 10 mg PO HS cefTRIAXone SODIUM 2 gm IV Q24H Pro-Stat 30 ml PO BID Sennosides-Docusate Sodium [Senokot-S] 2 tab PO DAILY Magnesium Oxide [Magox 400] 400 mg PO HS Docusate [Colace] 100 mg PO BID 30 Days #60 cap Vancomycin HCl in 5 % Dextrose [Vancomycin 1 Gram/250 ml-D5w] 1 gm IV Q16H #30 each Linagliptin [Tradjenta] 5 mg PO DAILY Tamsulosin [Flomax] 0.4 mg PO DAILY HYDROcodone/APAP 5-325MG [[place] 5-325] 1 tab PO Q6HR PRN PRN Reason: Pain Discharge Medication List Aspirin 81 mg PO DAILY 07/16/21 [History] Ergocalciferol [Vitamin D2 (1250 Mcg = 96574 Iu)] 1,250 mcg PO TU 07/16/21 [History] Magnesium Oxide [Magox 400] 400 mg PO HS 07/16/21 [History] Pro-Stat 30 ml PO BID 07/16/21 [History] Sennosides-Docusate Sodium [Senokot-S] 2 tab PO DAILY 07/16/21 [History] metFORMIN HCL [Glucophage] 500 mg PO BID 07/16/21 [History] Docusate [Colace] 100 mg PO BID 30 Days #60 cap 07/24/21 [Rx] Melatonin 5 mg PO HS tablet 07/24/21 [Rx] Vancomycin HCl in 5 % Dextrose [Vancomycin 1 Gram/250 ml-D5w] 1 gm IV Q16H #30 each 07/24/21 [Rx] Acetaminophen [Tylenol] 650 mg PO Q6H PRN 07/26/21 [History] Linagliptin [Tradjenta] 5 mg PO DAILY 07/26/21 [History] Tamsulosin [Flomax] 0.4 mg PO DAILY 07/26/21 [History] amLODIPine BESYLATE 10 mg PO HS 07/26/21 [History] cefTRIAXone SODIUM 2 gm IV Q24H 07/26/21 [History] Atorvastatin [Lipitor] 20 mg PO HS tab 07/31/21 [Rx] Clopidogrel [Plavix] 75 mg PO DAILY tab 07/31/21 [Rx] HYDROcodone/APAP 5-325MG [[place] 5-325] 1 tab PO Q6HR PRN #9 tab 07/31/21 [Rx] Follow up Appointment(s)/Referral(s): Nicholas Proctor MD [Medical Doctor] - 1 Week Juancho Vilchis DO [Doctor of Osteopathic Medicine] - 10 Days Activity/Diet/Wound Care/Special Instructions: Non weightbearing on the left lower extremity. No tub baths, may shower. Monitor incision sites for infection including drainage, redness, fever 100.4 or higher. Left ankle surgical site instructions per orthopedics Follow-up with Dr. Mckeon in 7-10 days Discharge Disposition: TRANSFER TO SNF/ECF
--- NOTE | 2021-07-31 10:53 | P.CONS ---
History of Present Illness - Reason for Consult Consult date: 07/30/21 antibiotics recomendation Requesting physician: Rudy Duff - Chief Complaint left ankle pain x few days - History of Present Illness History of Present Illness : Patient is a 70-year old female with a past medical history taken for type 2 diabetes mellitus the patient recently underwent left ankle ORIF for left ankle trimalleolar fracture dislocation on June 14, 2021 patient subsequent did have a lateral wound dehiscence and underwent irrigation debridement of the left lateral ankle wound on 07/26/2021 patient also have evidence of peripheral arterial disease, with concern for high risk of infection patient did get a PICC line and was advised a 4-week course of IV vancomycin and Rocephin at the local snf. Patient has been electively admitted to the hospital for left lower extremity femoropopliteal in situ vein bypass graft and left common femoral thromboendarterectomy with patch angioplasty, infectious disease was consulted for management of her antibiotic therapy. On today's evaluation that is 07/30/2021, the patient denies having any fever or any chills she been complaining of pain to the left lower extremity more of a dull aching at times sharp 5-6 out of 10 no radiation the left ankle dressing has been changed by the nursing staff mention sutures are intact with no significant surrounding swelling redness or any drainage Review of system: CONSTITUTIONAL: Positive for weakness denies high-grade fever. EYES: No complaint. ENT: No complaint. RESPIRATORY: No complaint. CARDIOVASCULAR: No complaint. GENITOURINARY: No complaint. GASTROINTESTINAL: No complaint. MUSCULOSKELETAL: As per history of present illness. INTEGUMENTARY : As per history of present illness. PSYCHOLOGIC: No complaint. ENDOCRINE: No complaint. NEUROLOGIC: No complaint. Past medical history : Reviewed, documented below Past surgical history : Reviewed, documented below Social history: Reviewed, documented below Medications: Reviewed, as documented below EXAMINATION: Vital sigans= Reviewed and documented below GENERAL DESCRIPTION: Elderly female lying in bed, no distress. No tachypnea or accessory muscle of respiration use. HEENT: Shows Pallor , no scleral icterus. Oral mucous membrane is dry. NECK: Trachea central, no thyromegaly. LUNGS: Unlabored breathing. Clear to auscultation anteriorly. No wheeze or crackle. HEART: S1, S2, regular rate and rhythm. ABDOMEN: Soft, no tenderness , guarding or rigidity EXTREMITIES: Left ankle wound is currently dressed no drainage on the dressing SKIN: No rash, no masses palpable. NEUROLOGICAL: The patient is awake, alert, oriented x3, mood and affect normal. LABS AND RADIOLOGY: Reviewed results see below Assessment : Patient with left ankle fracture this patient did have a dehiscence of the wound status post I&D on 07/16/2021 with a high risk of subsequent infection patient is empirically being treated with vancomycin and Rocephin now admitted to hospital for vascular bypass surgery and thromboendarterectomy which was completed on 07/29/2021, patient is currently afebrile and no evidence of any cellulitis at her incision site Plan: 1-vancomycin pharmacy to dose target trough of 15 while watching kidney function and vancomycin trough closely 2-Rocephin 2 g daily 3-dry protective dressing to the left ankle area We will follow on clinical condition and cultures to further adjust medication if needed Thank you for this consultation we will follow the patient along with you Past Medical History Past Medical History: Diabetes Mellitus, Hyperlipidemia, Hypertension, Myocardial Infarction ([place]) Additional Past Medical History / Comment(s): DM type 2. Last Myocardial Infarction Date:: 1989 History of Any Multi-Drug Resistant Organisms: None Reported Past Surgical History: No Surgical Hx Reported Additional Past Surgical History / Comment(s): "Female surgery to help with ." Past Anesthesia/Blood Transfusion Reactions: No Reported Reaction Past Psychological History: No Psychological Hx Reported Smoking Status: Former smoker Past Alcohol Use History: Rare Additional Past Alcohol Use History / Comment(s): Quit smoking 28 yrs ago. Additional Drug Use History / Comment(s): "Pot once in a great while". - Past Family History Mother Family Medical History: No Reported History Medications and Allergies Home Medications Medication Instructions Recorded Confirmed Type Aspirin 81 mg PO DAILY 07/16/21 07/29/21 History Ergocalciferol [Vitamin D2 (1250 1,250 mcg PO TU 07/16/21 07/29/21 History Mcg = 81693 Iu)] Magnesium Oxide [Magox 400] 400 mg PO HS 07/16/21 07/29/21 History Pro-Stat 30 ml PO BID 07/16/21 07/29/21 History Sennosides-Docusate Sodium 2 tab PO DAILY 07/16/21 07/29/21 History [Senokot-S] metFORMIN HCL [Glucophage] 500 mg PO BID 07/16/21 07/29/21 History Docusate [Colace] 100 mg PO BID 30 Days #60 cap 07/24/21 07/29/21 Rx Melatonin 5 mg PO HS tablet 07/24/21 07/29/21 Rx Vancomycin HCl in 5 % Dextrose 1 gm IV Q16H #30 each 07/24/21 07/29/21 Rx [Vancomycin 1 Gram/250 ml-D5w] Acetaminophen [Tylenol] 650 mg PO Q6H PRN 07/26/21 07/29/21 History Linagliptin [Tradjenta] 5 mg PO DAILY 07/26/21 07/29/21 History Tamsulosin [Flomax] 0.4 mg PO DAILY 07/26/21 07/29/21 History amLODIPine BESYLATE 10 mg PO HS 07/26/21 07/29/21 History cefTRIAXone SODIUM 2 gm IV Q24H 07/26/21 07/29/21 History Atorvastatin [Lipitor] 20 mg PO HS tab 07/31/21 Rx Clopidogrel [Plavix] 75 mg PO DAILY tab 07/31/21 Rx HYDROcodone/APAP 5-325MG [[place] 1 tab PO Q6HR PRN #9 tab 07/31/21 Rx 5-325] Allergies Allergy/AdvReac Type Severity Reaction Status Date / Time codeine AdvReac Itching Verified 07/29/21 06:52 Physical Exam Vitals: Vital Signs Temp Pulse Resp BP Pulse Ox 07/30/21 15:05 98.0 F 07/30/21 15:03 79 18 125/57 93 L 07/30/21 14:00 70 18 07/30/21 11:56 70 18 121/63 98 07/30/21 08:00 98.2 F 80 18 114/54 100 07/30/21 07:49 97 07/30/21 04:00 68 18 124/61 98 07/30/21 02:00 73 18 07/30/21 00:00 73 18 130/60 99 07/29/21 20:00 98.0 F 74 16 119/58 97 Intake and Output 07/30/21 07/30/21 07/30/21 06:59 14:59 22:59 Intake Total 236 Output Total 400 550 Balance -400 -314 Intake: Oral 236 Output: Urine 400 550 Other: Voiding Method Indwelling Catheter Indwelling Catheter Weight 64.2 kg Results CBC & Chem 7: 07/31/21 08:28 07/31/21 08:28 Labs: Abnormal Lab Results - Last 24 Hours (Table) 07/30/21 07/30/21 07/30/21 Range/Units 00:30 06:08 08:41 WBC 11.8 H (3.8-10.6) k/uL RBC 2.95 L (3.80-5.40) m/uL Hgb 8.5 L D (11.4-16.0) gm/dL Hct 26.7 L (34.0-46.0) % Chloride (98-107) mmol/L BUN (7-17) mg/dL Glucose (74-99) mg/dL POC Glucose (mg/dL) 143 H 115 H (75-99) mg/dL Total Protein (6.3-8.2) g/dL Albumin (3.5-5.0) g/dL 07/30/21 07/30/21 Range/Units 08:41 11:29 WBC (3.8-10.6) k/uL RBC (3.80-5.40) m/uL Hgb (11.4-16.0) gm/dL Hct (34.0-46.0) % Chloride 109 H (98-107) mmol/L BUN 19 H (7-17) mg/dL Glucose 139 H (74-99) mg/dL POC Glucose (mg/dL) 139 H (75-99) mg/dL Total Protein 5.8 L (6.3-8.2) g/dL Albumin 2.7 L (3.5-5.0) g/dL
--- NOTE | 2021-07-31 11:24 | P.CONS ---
History of Present Illness - Reason for Consult Consult date: 07/31/21 wound care - History of Present Illness This is a 70-year-old patient being seen on 3 S. by the wound care center for nonhealing ulceration to the left foot. Patient had a ORIF in June resulting in surgical wound dehiscence and new ulcerations to the left foot. Patient does have sutures in place to the left lateral lower extremity extending to the foot, and to ulcerations to the dorsal foot. Patient states that she has pain to the site especially with movement. At this time there utilizing a nonadherent dressing and Kerlix. The dorsal foot ulceration has eschar present is a cluster of 2. No granulation is seen within the wound bed. The lateral lower extremity ulceration has sutures in place incision is not well approximated. With granulation noted. Underwent a left femoral to popliteal in situ vein bypass graft, left common femoral thromboendarterectomy with patch angioplasty on 07/29/2021. With the doctor Deng. Review Of Systems: Constitutional: No fever, no chills, no night sweats. No weight change. No weakness, fatigue or lethargy. No daytime sleepiness. Integumentary:reports wounds, no lesions. No rash or pruritus. No unusual bruising. No change in hair or nails. Physical exam: General Appearance: Alert, cooperative, no distress, appears stated age. Skin: See HPI all other Skin color, texture, tugor normal, no rashes or lesions. Neurologic: Alert oriented x3 Assessment: 1. Nonhealing ulceration with fatty layer exposure left dorsal foot 2. Surgical wound dehiscence 3. Peripheral vascular disease Plan: 1. Apply Santyl to all ulceration including incisional line, saline moistened gauze, dry gauze, rolled gauze secured paper tape. Change daily. Patient would benefit from continued wound care and outpatient setting. Would be happy to see her in the wound care center. Thank for the consultation any questions with contact the wound care center DNP note has been reviewed and discussed with Dr. Ascencio and the impression and plan of care has been directed as dictated. Past Medical History Past Medical History: Diabetes Mellitus, Hyperlipidemia, Hypertension, Myocardial Infarction ([place]) Additional Past Medical History / Comment(s): DM type 2. Last Myocardial Infarction Date:: Approx 1989 History of Any Multi-Drug Resistant Organisms: None Reported Past Surgical History: No Surgical Hx Reported Additional Past Surgical History / Comment(s): "Female surgery to help with ." Past Anesthesia/Blood Transfusion Reactions: No Reported Reaction Past Psychological History: No Psychological Hx Reported Smoking Status: Former smoker Past Alcohol Use History: Rare Additional Past Alcohol Use History / Comment(s): Quit smoking 28 yrs ago. Additional Drug Use History / Comment(s): "Pot once in a great while". - Past Family History Mother Family Medical History: No Reported History Medications and Allergies Home Medications Medication Instructions Recorded Confirmed Type Aspirin 81 mg PO DAILY 07/16/21 07/29/21 History Ergocalciferol [Vitamin D2 (1250 1,250 mcg PO TU 07/16/21 07/29/21 History Mcg = 65744 Iu)] Magnesium Oxide [Magox 400] 400 mg PO HS 07/16/21 07/29/21 History Pro-Stat 30 ml PO BID 07/16/21 07/29/21 History Sennosides-Docusate Sodium 2 tab PO DAILY 07/16/21 07/29/21 History [Senokot-S] metFORMIN HCL [Glucophage] 500 mg PO BID 07/16/21 07/29/21 History Docusate [Colace] 100 mg PO BID 30 Days #60 cap 07/24/21 07/29/21 Rx Melatonin 5 mg PO HS tablet 07/24/21 07/29/21 Rx Vancomycin HCl in 5 % Dextrose 1 gm IV Q16H #30 each 07/24/21 07/29/21 Rx [Vancomycin 1 Gram/250 ml-D5w] Acetaminophen [Tylenol] 650 mg PO Q6H PRN 07/26/21 07/29/21 History Linagliptin [Tradjenta] 5 mg PO DAILY 07/26/21 07/29/21 History Tamsulosin [Flomax] 0.4 mg PO DAILY 07/26/21 07/29/21 History amLODIPine BESYLATE 10 mg PO HS 07/26/21 07/29/21 History cefTRIAXone SODIUM 2 gm IV Q24H 07/26/21 07/29/21 History Atorvastatin [Lipitor] 20 mg PO HS tab 07/31/21 Rx Clopidogrel [Plavix] 75 mg PO DAILY tab 07/31/21 Rx HYDROcodone/APAP 5-325MG [[place] 1 tab PO Q6HR PRN #9 tab 07/31/21 Rx 1-154] Allergies Allergy/AdvReac Type Severity Reaction Status Date / Time codeine AdvReac Itching Verified 07/29/21 06:52 Physical Exam Vitals: Vital Signs Temp Pulse Resp BP Pulse Ox 07/31/21 09:20 91 L 07/31/21 08:32 99.3 F 90 18 129/55 93 L 07/31/21 08:00 90 18 07/31/21 04:00 98.4 F 91 16 125/56 96 07/31/21 02:00 89 16 07/31/21 00:00 100.0 F H 89 16 134/61 95 07/30/21 20:00 100.0 F H 87 16 127/55 95 07/30/21 15:05 98.0 F 07/30/21 15:03 79 18 125/57 93 L 07/30/21 14:00 70 18 07/30/21 11:56 70 18 121/63 98 Intake and Output 07/30/21 07/31/21 07/31/21 22:59 06:59 14:59 Intake Total 20 Output Total 400 Balance 20 -400 Intake: IV 20 Invasive Line 1 10 Invasive Line 3 10 Oral 0 Output: Urine 400 Other: Voiding Method Indwelling Catheter Indwelling Catheter Indwelling Catheter # Bowel Movements 0 Results CBC & Chem 7: 07/31/21 08:28 07/31/21 08:28 Labs: Abnormal Lab Results - Last 24 Hours (Table) 07/30/21 07/31/21 07/31/21 Range/Units 11:29 06:14 08:28 WBC 12.9 H (3.8-10.6) k/uL RBC 2.79 L (3.80-5.40) m/uL Hgb 8.1 L (11.4-16.0) gm/dL Hct 25.3 L (34.0-46.0) % Potassium (3.5-5.1) mmol/L Chloride (98-107) mmol/L BUN (7-17) mg/dL Glucose (74-99) mg/dL POC Glucose (mg/dL) 139 H 112 H (75-99) mg/dL Calcium (8.4-10.2) mg/dL Total Protein (6.3-8.2) g/dL Albumin (3.5-5.0) g/dL 07/31/21 Range/Units 08:28 WBC (3.8-10.6) k/uL RBC (3.80-5.40) m/uL Hgb (11.4-16.0) gm/dL Hct (34.0-46.0) % Potassium 3.0 L (3.5-5.1) mmol/L Chloride 109 H (98-107) mmol/L BUN 18 H (7-17) mg/dL Glucose 118 H (74-99) mg/dL POC Glucose (mg/dL) (75-99) mg/dL Calcium 8.2 L (8.4-10.2) mg/dL Total Protein 5.5 L (6.3-8.2) g/dL Albumin 2.5 L (3.5-5.0) g/dL Assessment and Plan (1) Non-pressure chronic ulcer of other part of left foot with fat layer exposed Current Visit: Yes Status: Acute Code(s): L97.522 - NON-PRS CHRONIC ULCER OTH PRT LEFT FOOT W FAT LAYER EXPOSED SNOMED Code(s): 770179391 (2) Non-pressure ulcer of left lower extremity with fat layer exposed Current Visit: Yes Status: Acute Code(s): L97.922 - NON-PRS CHR ULC UNSP PRT OF L LOW LEG W FAT LAYER EXPOSED SNOMED Code(s): 86436211 (3) Postoperative wound dehiscence Current Visit: No Status: Acute Code(s): T81.31XA - DISRUPTION OF EXTERNAL OPERATION (SURGICAL) WOUND, NEC, INIT SNOMED Code(s): 021556896
[2021-07-31 12:29] LABS: Calcium 8.1 mg/dL (8.4-10.2)
[2021-07-31] MEDS: COLLAGENASE 250 UNIT/GM OINTMENT 30 GM TUBE TOPICAL SCH (13:23)
[2021-07-31] MEDS: VANCOMYCIN 1,000 MG in SODIUM CHLORIDE 0.9% 250 ML IVPB SCH (15:24)
[2021-07-31 20:02] LABS: Glucose,Whole Blood 138 mg/dL (75-99)
[2021-07-31] MEDS: ATORVASTATIN 20 MG TAB PO SCH (20:21)
[2021-07-31] MEDS: amLODIPine 10 MG TAB PO SCH (20:21)
[2021-07-31] MEDS: MELATONIN 5 MG TABLET PO SCH (20:21)
[2021-08-01] MEDS: HYDROcodone/APAP 5-325MG 1 EACH TAB PO PRN ×2 (04:56→13:10)
[2021-08-01] MEDS: INSULIN ASPART (NovoLOG) 100 UNIT/ML VIAL SQ SCH ×2 (06:15→11:54)
[2021-08-01] MEDS: VANCOMYCIN 1,000 MG in SODIUM CHLORIDE 0.9% 250 ML IVPB SCH (06:24)
[2021-08-01 08:02] VITALS: BP 127/60; PULSE 92; RESP 18; TEMP 99.5
[2021-08-01] MEDS: ASPIRIN 325 MG TAB PO SCH (08:03)
[2021-08-01] MEDS: CLOPIDOGREL 75 MG TAB PO SCH (08:03)
[2021-08-01] MEDS: DOCUSATE 100 MG CAP PO SCH (08:03)
[2021-08-01] MEDS: LINAGLIPTIN 5 MG TABLET PO SCH (08:03)
[2021-08-01] MEDS: TAMSULOSIN 0.4 MG CAP.ER.24H PO SCH (08:03)
[2021-08-01] MEDS: SENNOSIDES-DOCUSATE SODIUM 1 EACH TAB PO SCH (08:04)
[2021-08-01] MEDS: COLLAGENASE 250 UNIT/GM OINTMENT 30 GM TUBE TOPICAL SCH (11:40)
--- NOTE | 2021-08-01 19:29 | P.PN ---
Subjective Progress Note Date: 08/01/21 This patient is a 70- year old female with a past medical history of past medical history of type 2 diabetes with pre-op hemoglobin A1C of 9, history of non-healing wounds that recently underwent left ankle ORIF for left ankle trimalleolar fracture dislocation on 06/14/[address] Proctor. She later develop ed lateral wound dehiscence and underwent an irrigation and debridement of left lateral ankle wound on 07/16/21. Patient was evaluated by vascular surgery during her admission and surgical re-vascularization was recommended. Patient followed up with vascular surgery as an outpatient and underwent a left femoral to popliteal in situ vein bypass graft and left common femoral thromboendarterectomy with patch angioplasty yesterday. Orthopedic surgery is consulted for recommendations regarding her left ankle. Patient is seen and examined bedside this afternoon. Patient states she is not having any significant pain in the left ankle. She has no specific complaints or concerns. She denies chest pain, shortness of breath, nausea, vomiting. Vital signs stable. 08/01/21: Patient is seen and examined bedside. She states her ankle pain is well controlled. She was evaluated by wound care yesterday and her incisions are currently dressed. Per nursing she is to be discharged to rehab today. No new c omplaints. Objective - Vital Signs Vital signs: Vital Signs Temp 99.5 F 08/01/21 07:58 Pulse 92 08/01/21 08:00 Resp 18 08/01/21 08:00 BP 127/60 08/01/21 07:58 Pulse Ox 91 L 08/01/21 07:58 Intake & Output 08/01/21 08/01/21 08/02/21 06:59 18:59 06:59 Output Total 600 150 Balance -600 -150 Output: Urine 600 150 Uretheral (Colby) 600 Other: Voiding Method Indwelling Catheter Indwelling Catheter - Exam On examination, patient is sitting up in the bed in no apparent distress. She is alert and orientated x3. On inspection of the left ankle, there is a clean, dry, intact dressing in place. Visible portion of the toes are warm and well perfused. Patient is able to wiggle toes appropriately. - Labs CBC & Chem 7: 07/31/21 08:28 07/31/21 12:01 Labs: Abnormal Lab Results - Last 24 Hours (Table) 07/31/21 Range/Units 20:00 POC Glucose (mg/dL) 138 H (75-99) mg/dL Assessment and Plan Assessment: Left ankle ORIF for left ankle trimalleolar fracture dislocation on 06/14/21 Irrigation and debridement of left lateral ankle wound due to lateral wound dehiscence on 07/16/21 Plan: - Non-weight bearing left ankle. No [id number] of left ankle. - Patient may keep CAM boot off in bed. - Keep sutures in at this time. - Wound care per wound care team. - Patient had PICC line placed during last admission, antibiotics per Dr. Silva. - DVT prophylaxis per vascular surgery team. - Will follow patient and make recommendations as needed. She may follow-up in the office as an outpatient after discharge.
== END 2021-08-01 13:28 | DRG 253 ==
LOC: 2ORMAIN 05:58 → 3SCARD 12:35
PROVIDERS: ADMIT Surgery; ATTEND Surgery
PROC: 041L09M Bypass Left Femoral Artery to Peroneal Artery with Autologous Venous Tissue, Open Approach (ICD-10-PCS; 2021-07-29)
PROC: 04CL0ZZ Extirpation of Matter from Left Femoral Artery, Open Approach (ICD-10-PCS; principal; 2021-07-29 07:30)
DX: E11.51 Type 2 diabetes mellitus with diabetic peripheral angiopathy without gangrene (principal); I70.92 Chronic total occlusion of artery of the extremities; T81.31XA Disruption of external operation (surgical) wound, not elsewhere classified, initial encounter; I70.25 Atherosclerosis of native arteries of other extremities with ulceration; E11.621 Type 2 diabetes mellitus with foot ulcer; E78.5 Hyperlipidemia, unspecified; I10 Essential (primary) hypertension; I25.10 Atherosclerotic heart disease of native coronary artery without angina pectoris; I25.2 Old myocardial infarction; Z20.822 Contact with and (suspected) exposure to COVID-19; I70.202 Unspecified atherosclerosis of native arteries of extremities, left leg; L97.522 Non-pressure chronic ulcer of other part of left foot with fat layer exposed; T81.89XD Other complications of procedures, not elsewhere classified, subsequent encounter; Y83.8 Other surgical procedures as the cause of abnormal reaction of the patient, or of later complication, without mention of misadventure at the time of the procedure; Z79.02 Long term (current) use of antithrombotics/antiplatelets; Z79.82 Long term (current) use of aspirin; Z79.84 Long term (current) use of oral hypoglycemic drugs; Z79.899 Other long term (current) drug therapy; Z87.891 Personal history of nicotine dependence
CPT/HCPCS: 80048; 80053; 83735; 84132; 85027; 86850; 86900; 86901; 87635; 88304; 88311; 94760

== ENCOUNTER 2021-08-15 14:03 | Emergency (ER) | payer MEDICARE ==
[2021-08-15 14:18] VITALS: TEMP 98.2
--- NOTE | 2021-08-15 15:52 | ED ---
General Adult HPI - General Chief complaint: Extremity Injury, Lower Stated complaint: Hemorage, post leg operation Time Seen by Provider: 08/15/21 14:22 Source: patient, EMS Mode of arrival: EMS Limitations: no limitations - History of Present Illness Initial comments: This 70-year-old female presents emergency Department with incision bleeding that began this morning after getting cristian removed. Patient states she had some sort of vascular surgery 2 weeks ago and has had cristian in place since the operation up until this morning. Patient currently lives at the [facility] and states she has been there for the last couple of months. Patient states 2 months ago she broke her left ankle and had an operation on her ankle prior to the vascular surgery 2 weeks ago. Patient states performed the vascular surgery 2 weeks ago and removed the cristian today. Patient states the bleeding began about an hour after returning from cristian being removed by . Patient denies any pain, warmth or erythema around site. Patient states cristian were removed from two different sites today, left medial calf (bleeding since staple removal) and medial side of left leg just above the knee (which is not bleeding) No sign of infection present. Patient denies any new loss of sensation to leg or foot. Patient was brought here to be assessed for bleeding from wound site. Patient denies any chest pain, shortness breath, abdominal pain, nausea, vomiting, change in bowel or bladder, change in appetite, headache, light headedness, dizziness, change in vision. Patient states she is non-weightbearing for the last 2 weeks due to the broken ankle and vascular surgery. Patient states she does use a wheelchair at the [facility]. - Related Data Home Medications Medication Instructions Recorded Confirmed Aspirin 81 mg PO DAILY 07/16/21 08/15/21 Ergocalciferol [Vitamin D2 (1250 1,250 mcg PO TU 07/16/21 08/15/21 Mcg = 11430 Iu)] Magnesium Oxide [Magox 400] 400 mg PO HS 07/16/21 08/15/21 metFORMIN HCL [Glucophage] 500 mg PO BID 07/16/21 08/15/21 Acetaminophen [Tylenol] 650 mg PO Q6H PRN 07/26/21 08/15/21 Linagliptin [Tradjenta] 5 mg PO DAILY 07/26/21 08/15/21 Tamsulosin [Flomax] 0.4 mg PO DAILY 07/26/21 08/15/21 amLODIPine BESYLATE 10 mg PO HS 07/26/21 08/15/21 cefTRIAXone SODIUM 2 gm IV Q24H 07/26/21 08/15/21 Atorvastatin [Lipitor] 20 mg PO HS@199908/15/21 08/15/21 Clopidogrel [Plavix] 75 mg PO HS@199908/15/21 08/15/21 Collagenase [Santyl Ointment] 1 applic TOPICAL HS 08/15/21 08/15/21 Docusate [Colace] 100 mg PO DAILY PRN 08/15/21 08/15/21 Melatonin 5 mg PO HS@199908/15/21 08/15/21 Multivitamins, Thera [Multivitamin 1 tab PO DAILY 08/15/21 08/15/21 (formulary)] Promethazine HCl 12.5 mg PO Q6H PRN 08/15/21 08/15/21 Previous Rx's Medication Instructions Recorded Vancomycin HCl in 5 % Dextrose 1 gm IV Q16H #30 each 07/24/21 [Vancomycin 1 Gram/250 ml-D5w] HYDROcodone/APAP 5-325MG [[place] 1 tab PO Q6HR PRN #9 tab 07/31/21 5-325] Allergies Allergy/AdvReac Type Severity Reaction Status Date / Time codeine AdvReac Itching Verified 08/15/21 15:25 Review of Systems ROS Statement: Those systems with pertinent positive or pertinent negative responses have been documented in the HPI. ROS Other: All systems not noted in ROS Statement are negative. Past Medical History Past Medical History: Diabetes Mellitus, Hyperlipidemia, Hypertension, Myocardial Infarction ([place]), Vascular Disorder Additional Past Medical History / Comment(s): DM type 2. Last Myocardial Infarction Date:: Approx 1989 History of Any Multi-Drug Resistant Organisms: None Reported Past Surgical History: No Surgical Hx Reported Additional Past Surgical History / Comment(s): "Female surgery to help with .". vascular surgery to right leg Past Anesthesia/Blood Transfusion Reactions: No Reported Reaction Past Psychological History: No Psychological Hx Reported Smoking Status: Former smoker Past Alcohol Use History: None Reported, Rare Past Drug Use History: None Reported - Past Family History Mother Family Medical History: No Reported History General Exam Limitations: no limitations General appearance: alert, in no apparent distress, other (2 wounds present where cristian were removed today. Proximal left medial incision without any oozing or bleeding. Bandage placed, instructed to be removed with dressing changes. Left medial calf incision with slight oozing, no active bleeding. Dressing and Sylvester bandage wrapped loosely around site ) Head exam: Present: atraumatic, normocephalic, normal inspection Eye exam: Present: normal appearance, PERRL, EOMI. Absent: scleral icterus, conjunctival injection, periorbital swelling ENT exam: Present: normal exam, mucous membranes moist Neck exam: Present: normal inspection. Absent: tenderness, meningismus, lymphadenopathy Respiratory exam: Present: normal lung sounds bilaterally. Absent: respiratory distress, wheezes, rales, rhonchi, stridor Cardiovascular Exam: Present: regular rate, normal rhythm, normal heart sounds. Absent: systolic murmur, diastolic murmur, rubs, gallop, clicks GI/Abdominal exam: Present: soft, normal bowel sounds. Absent: distended, tenderness, guarding, rebound, rigid Extremities exam: Present: normal inspection (DP pulses palpable on bilateral lower extremities. Patient with medial calf incision with no active bleeding present. There is a little bit of bright red blood draining/oozing. Smaller incision medial side leg above knee without bleeding/oozin Patient with sensation to all of her left foot and leg), full ROM (Some swelling present to left medial calf along with dorsal surface of left ankle. Sutures in place on lateral and medial surface of left ankle/leg with scabbing and healing present. No erethema, warmth or infection signs. No signs of infection present ), normal capillary refill, pedal edema (Mild swelling of dorsal surface of the left foot.). Absent: calf tenderness Back exam: Present: normal inspection. Absent: CVA tenderness (R), CVA tenderness (L), paraspinal tenderness, vertebral tenderness Neurological exam: Present: alert, oriented X3, CN II-XII intact Psychiatric exam: Present: normal affect, normal mood Skin exam: Present: warm. Absent: rash, cyanosis, erythema (No warmth, erythema to left lower extremity) Course Vital Signs 08/15/21 08/15/21 14:12 16:17 Temperature 98.2 F Pulse Rate 89 91 Respiratory 18 16 Rate Blood Pressure 123/68 126/87 O2 Sat by Pulse 94 L 94 L Oximetry Medical Decision Making - Medical Decision Making This 70-year-old female presents emergency department for wound check after having cristian removed today and continued bleeding/oozing from site. Patient states she had a vascular surgery by 2 weeks ago and had cristian removed this morning. Patient was brought here by EMS from the [facility] due to her wound still bleeding/oozing from this morning. Once patient got to the emergency department, clotting was already obtained and there was no active bleeding present. Slight oozing from bandage was present. After bandaging was removed there is a small amount of blood oozing from site, however there is no active bleeding present. Patient's vitals were stable. DP pulses palpable. I did speak to Dr. Vilchis who instructed me to put gauze and an Sylvester bandage oversight and have the nurses at [facility] continued to change bandages as directed. I did place gauze and Sylvester wrap over left medial calf along with Band-Aid over proximal wound that did not have bleeding present. Patient instructed to follow up with vascular surgeon in the next couple of days. Instructions were written on discharge paperwork. Strict return precautions were discussed with patient. Patient verbally agreed to plan. Patient sent home in stable condition. Case discussed with my attending, Dr. Guevara who also saw and assessed patient/wounds. Disposition Clinical Impression: Encounter for post surgical wound check Disposition: HOME SELF-CARE Condition: Stable Instructions (If sedation given, give patient instructions): Acute Wound Care (ED) Additional Instructions: Please return to the emergency department with any new, worsening, or concerning symptoms. Continue to re-bandage wound sites daily as directed by . Follow up with Dr. Vilchis in next 2-3 days. Is patient prescribed a controlled substance at d/c from ED?: No Referrals: None,Stated [Primary Care Provider] - 1-2 days Mauro Cline [STAFF PHYSICIAN] - 1-2 days Time of Disposition: 16:21
[2021-08-15] MEDS ORDERED: HYDROcodone/APAP 5-325MG 1 EACH TAB PO STA (17:09)
[2021-08-15 17:45] VITALS: BP 124/72; PULSE 87; RESP 18
== END 2021-08-15 17:44 | disposition home or self-care (01) ==
LOC: EC 14:03
DX: L76.22 Postprocedural hemorrhage of skin and subcutaneous tissue following other procedure (principal); E11.9 Type 2 diabetes mellitus without complications; E78.5 Hyperlipidemia, unspecified; I10 Essential (primary) hypertension; I25.2 Old myocardial infarction; Z79.82 Long term (current) use of aspirin; Z79.84 Long term (current) use of oral hypoglycemic drugs; Z79.02 Long term (current) use of antithrombotics/antiplatelets; Z88.5 Allergy status to narcotic agent; Z87.891 Personal history of nicotine dependence
CPT/HCPCS: 99283

== ENCOUNTER 2021-08-17 05:32 | Emergency (ER) | payer MEDICARE ==
[2021-08-17 05:47] VITALS: TEMP 98.1
--- NOTE | 2021-08-17 06:26 | ED ---
Wound/Laceration HPI - General Chief Complaint: Wound/Laceration Stated Complaint: Post-op bleeding Time Seen by Provider: 08/17/21 05:58 Source: patient, EMS Mode of arrival: EMS - History of Present Illness Initial Comments: 70-year-old female patient presents to the emergency department today for evaluation of bleeding from left leg incision. Patient had the cristian removed couple of days ago and has been having bleeding from the area since. She had a fem-pop insitu vein bypass graft to the left leg performed with Dr. Vilchis on 07/29/21. Occlusion was found due to non-healing left ankle surgical incision after a ORIF of the left ankle. Patient states that since the cristian were removed the wound has not stopped bleeding. She was seen two days ago here for the same. Instructions from Dr. Vilchis at that time was to apply dressings with nato wrap for compression. Apparently this was not successful so they sent her back in for evaluation. Patient reports mild discomfort to the area. Denies numbness or tingling to the foot. She does take Plavix and Aspirin. - Related Data Home Medications Medication Instructions Recorded Confirmed Aspirin 81 mg PO DAILY 07/16/21 08/15/21 Ergocalciferol [Vitamin D2 (1250 1,250 mcg PO TU 07/16/21 08/15/21 Mcg = 74696 Iu)] Magnesium Oxide [Magox 400] 400 mg PO HS 07/16/21 08/15/21 metFORMIN HCL [Glucophage] 500 mg PO BID 07/16/21 08/15/21 Acetaminophen [Tylenol] 650 mg PO Q6H PRN 07/26/21 08/15/21 Linagliptin [Tradjenta] 5 mg PO DAILY 07/26/21 08/15/21 Tamsulosin [Flomax] 0.4 mg PO DAILY 07/26/21 08/15/21 amLODIPine BESYLATE 10 mg PO HS 07/26/21 08/15/21 cefTRIAXone SODIUM 2 gm IV Q24H 07/26/21 08/15/21 Atorvastatin [Lipitor] 20 mg PO HS@199908/15/21 08/15/21 Clopidogrel [Plavix] 75 mg PO HS@199908/15/21 08/15/21 Collagenase [Santyl Ointment] 1 applic TOPICAL HS 08/15/21 08/15/21 Docusate [Colace] 100 mg PO DAILY PRN 08/15/21 08/15/21 Melatonin 5 mg PO HS@199908/15/21 08/15/21 Multivitamins, Thera [Multivitamin 1 tab PO DAILY 08/15/21 08/15/21 (formulary)] Promethazine HCl 12.5 mg PO Q6H PRN 08/15/21 08/15/21 Previous Rx's Medication Instructions Recorded Vancomycin HCl in 5 % Dextrose 1 gm IV Q16H #30 each 07/24/21 [Vancomycin 1 Gram/250 ml-D5w] HYDROcodone/APAP 5-325MG [[place] 1 tab PO Q6HR PRN #9 tab 07/31/21 5-325] Allergies Allergy/AdvReac Type Severity Reaction Status Date / Time codeine AdvReac Itching Verified 08/15/21 15:25 Review of Systems ROS Statement: Those systems with pertinent positive or pertinent negative responses have been documented in the HPI. ROS Other: All systems not noted in ROS Statement are negative. Past Medical History Past Medical History: Diabetes Mellitus, Hyperlipidemia, Hypertension, Myocardial Infarction ([place]), Vascular Disorder Additional Past Medical History / Comment(s): DM type 2. Last Myocardial Infarction Date:: 1989 History of Any Multi-Drug Resistant Organisms: None Reported Past Surgical History: No Surgical Hx Reported Additional Past Surgical History / Comment(s): "Female surgery to help with .". vascular surgery to right leg Past Anesthesia/Blood Transfusion Reactions: No Reported Reaction Past Psychological History: No Psychological Hx Reported Smoking Status: Former smoker Past Alcohol Use History: None Reported, Rare Past Drug Use History: None Reported - Past Family History Mother Family Medical History: No Reported History General Exam General appearance: alert, in no apparent distress, other (This is a well- developed, well-nourished adult female in no acute distress.) Eye exam: Present: normal appearance, PERRL, EOMI. Absent: scleral icterus, conjunctival injection, periorbital swelling ENT exam: Present: normal exam, normal oropharynx, mucous membranes moist Respiratory exam: Present: normal lung sounds bilaterally. Absent: respiratory distress, wheezes, rales, rhonchi, stridor Cardiovascular Exam: Present: regular rate, normal rhythm, normal heart sounds. Absent: systolic murmur, diastolic murmur, rubs, gallop, clicks GI/Abdominal exam: Present: soft, normal bowel sounds. Absent: distended, tenderness, guarding, rebound, rigid Extremities exam: Present: full ROM, normal capillary refill, other (Medial left leg incision, dark red blood oozing from mid incision, there is ecchymosis and soft tissue swelling consistent with heomatoma near the middle of the incision. ). Absent: normal inspection, tenderness, pedal edema, joint swelling, calf tenderness Neurological exam: Present: alert, oriented X3, CN II-XII intact Psychiatric exam: Present: normal affect, normal mood Skin exam: Present: warm, dry, intact, pallor. Absent: rash Course Vital Signs 08/17/21 08/17/21 05:41 07:03 Temperature 98.1 F Pulse Rate 81 89 Respiratory 16 16 Rate Blood Pressure 100/69 102/57 O2 Sat by Pulse 100 99 Oximetry Medical Decision Making - Medical Decision Making 70 year-old female patient presents for evaluation of bleeding from left leg incision site. She had fem-pop insitu venous graft with Dr. Vilchis in July. She is currently residing at [facility]. This is her second visit for bleeding from the wound. Physical exam revealed dark red blood oozing from the site. ABD dressing in place since midnight was soaked through with dark red blood. Review of labs showed hgb 7.4 down from 8.2 in July. I did speak to Dr. Vilchis, informed him of lab results and physical exam findings. He agrees this is consistent with draining hematoma. Recommendations to continue applying dressing every 24 hours and changing as needed. She will be discharged back [facility]. Return parameters discussed in detail. Patient agrees with this plan. My attending is Dr. Whatley. - Lab Data Result diagrams: 08/17/21 06:38 08/17/21 06:38 Lab Results 08/17/21 08/17/21 08/17/21 Range/Units 06:38 06:38 06:38 WBC 13.6 H (3.8-10.6) k/uL RBC 2.76 L (3.80-5.40) m/uL Hgb 7.4 L (11.4-16.0) gm/dL Hct 23.9 L (34.0-46.0) % MCV 86.8 (80.0-100.0) fL MCH 26.9 (25.0-35.0) pg MCHC 31.0 (31.0-37.0) g/dL RDW 15.1 (11.5-15.5) % Plt Count 495 H (150-450) k/uL MPV 7.1 Neutrophils % 86 % Lymphocytes % 9 % Monocytes % 4 % Eosinophils % 0 % Basophils % 0 % Neutrophils # 11.6 H (1.3-7.7) k/uL Lymphocytes # 1.2 (1.0-4.8) k/uL Monocytes # 0.5 (0-1.0) k/uL Eosinophils # 0.0 (0-0.7) k/uL Basophils # 0.1 (0-0.2) k/uL Hypochromasia Marked Poikilocytosis Slight PT 11.7 (9.0-12.0) sec INR 1.1 (<1.2) APTT 23.1 (22.0-30.0) sec Sodium 137 (137-145) mmol/L Potassium 4.2 (3.5-5.1) mmol/L Chloride 109 H (98-107) mmol/L Carbon Dioxide 21 L (22-30) mmol/L Anion Gap 7 mmol/L BUN 17 (7-17) mg/dL Creatinine 0.93 (0.52-1.04) mg/dL Est GFR (CKD-EPI)AfAm 72 (>60 ml/min/1.73 sqM) Est GFR (CKD-EPI)NonAf 63 (>60 ml/min/1.73 sqM) Glucose 168 H (74-99) mg/dL Calcium 8.8 (8.4-10.2) mg/dL Total Bilirubin 0.6 (0.2-1.3) mg/dL AST 19 (14-36) U/L ALT 8 (4-34) U/L Alkaline Phosphatase 134 H (38-126) U/L Total Protein 6.4 (6.3-8.2) g/dL Albumin 2.9 L (3.5-5.0) g/dL Disposition Clinical Impression: Hematoma of left lower leg, Bleeding from wound Disposition: HOME SELF-CARE Condition: Good Instructions (If sedation given, give patient instructions): Hematoma (ED) Additional Instructions: Change dressings daily or as needed when soaked through. Keep leg elevated. Follow up with Vascular Surgery in 1-2 days. Return for any new, worsening, or concerning symptoms. Is patient prescribed a controlled substance at d/c from ED?: No Referrals: Nonstaff,Physician [Primary Care Provider] - 1-2 days Time of Disposition: 07:37
[2021-08-17 06:55] LABS: Basophils # (A) 0.1 k/uL (0-0.2); Basophils % (A) 0 %; Eosinophils % (A) 0 %; HCT 23.9 % (34.0-46.0); HGB 7.4 gm/dL (11.4-16.0); Hypochromasia Marked; Lymphocytes # (A) 1.2 k/uL (1.0-4.8); Lymphocytes % (A) 9 %; MCH 26.9 pg (25.0-35.0); MCV 86.8 fL (80.0-100.0); Mean Platelet Volume 7.1; Monocytes # (A) 0.5 k/uL (0-1.0); Monocytes % (A) 4 %; Neutrophils # (A) 11.6 k/uL (1.3-7.7); Neutrophils % (A) 86 %; Platelet Count 495 k/uL (150-450); Poikilocytosis Slight; RBC 2.76 m/uL (3.80-5.40); RDW 15.1 % (11.5-15.5); WBC 13.6 k/uL (3.8-10.6)
[2021-08-17 07:06] LABS: INR 1.1 (<1.2); Partial Thromboplastin Time 23.1 sec (22.0-30.0); Prothrombin Time 11.7 sec (9.0-12.0)
[2021-08-17 07:24] LABS: Albumin 2.9 g/dL (3.5-5.0); Calcium 8.8 mg/dL (8.4-10.2); Potassium 4.2 mmol/L (3.5-5.1); Total Bilirubin 0.6 mg/dL (0.2-1.3); Total Protein 6.4 g/dL (6.3-8.2)
[2021-08-17] MEDS ORDERED: ACETAMINOPHEN TAB 325 MG TAB PO STA (07:40)
[2021-08-17] MEDS ORDERED: MORPHINE SULFATE 2 MG/ML SYRINGE IVP STA (07:41)
[2021-08-17 10:41] VITALS: BP 105/62; PULSE 87; RESP 18
== END 2021-08-17 10:39 | disposition home or self-care (01) ==
LOC: EC 05:32
DX: L76.22 Postprocedural hemorrhage of skin and subcutaneous tissue following other procedure (principal); E11.9 Type 2 diabetes mellitus without complications; I10 Essential (primary) hypertension; E78.5 Hyperlipidemia, unspecified; I25.2 Old myocardial infarction; Z79.899 Other long term (current) drug therapy; Z79.82 Long term (current) use of aspirin; Z79.84 Long term (current) use of oral hypoglycemic drugs; Z87.891 Personal history of nicotine dependence; Z88.5 Allergy status to narcotic agent; Z79.02 Long term (current) use of antithrombotics/antiplatelets
CPT/HCPCS: 36415; 80053; 85025; 85610; 85730; 99283; 96374; J2270

== ENCOUNTER 2021-08-21 23:10 | Inpatient (IN) | payer MEDICARE, OTHER ==
[2021-08-21] MEDS ORDERED: SODIUM CHLORIDE 0.9% 1,000 ML IV STA (23:17)
--- NOTE | 2021-08-21 23:25 | ED ---
Recheck HPI - General Chief Complaint: Recheck/Abnormal Lab/Rx Stated Complaint: low hemoglobin Time Seen by Provider: 08/21/21 23:17 Source: patient, EMS, RN notes reviewed, old records reviewed Mode of arrival: EMS Limitations: no limitations - History of Present Illness Initial Comments: This is a 70-year-old female presents today for mental illness. Patient presented today for need to have for evaluation of low hemoglobin. Patient recently cristian removed from surgical site. She has no complaints of pain no fevers no nausea no vomiting or diarrhea no other complaints. MD Complaint: abnormal lab (Low hemoglobin) -: unknown Returns Today for: Called Because of Abnormal Lab/Test, persistent/worsening pain related to initial visit Symptoms Since Prior Visit: no new symptoms (Weakness), worsening pain Context: called for abnormal lab result (Low hemoglobin) Associated Symptoms: shortness of breath, malaise, nausea Treatments Prior to Arrival: dressings - Related Data Home Medications Medication Instructions Recorded Confirmed Ergocalciferol [Vitamin D2 (1250 1,250 mcg PO TU 07/16/21 08/22/21 Mcg = 71713 Iu)] Magnesium Oxide [Magox 400] 400 mg PO HS 07/16/21 08/22/21 Acetaminophen [Tylenol] 650 mg PO Q6H PRN 07/26/21 08/22/21 Linagliptin [Tradjenta] 5 mg PO DAILY 07/26/21 08/22/21 Tamsulosin [Flomax] 0.4 mg PO DAILY 07/26/21 08/22/21 amLODIPine BESYLATE 10 mg PO HS 07/26/21 08/22/21 Atorvastatin [Lipitor] 20 mg PO HS@199908/15/21 08/22/21 Clopidogrel [Plavix] 75 mg PO HS@199908/15/21 08/22/21 Docusate [Colace] 100 mg PO DAILY PRN 08/15/21 08/22/21 Melatonin 5 mg PO HS@199908/15/21 08/22/21 Multivitamins, Thera [Multivitamin 1 tab PO DAILY 08/15/21 08/22/21 (formulary)] Promethazine HCl 12.5 mg PO Q8H PRN 08/15/21 08/22/21 Previous Rx's Medication Instructions Recorded Collagenase [Santyl Ointment] 1 applic TOPICAL HS 08/29/21 INSULIN ASPART (NovoLOG) [NovoLOG 0 unit SQ ACHS ml 08/29/21 (formulary)] Pantoprazole [Protonix] 40 mg PO AC-BRKFST tab 08/29/21 bisacodyL [Dulcolax] 10 mg RECTAL DAILY PRN supp 08/29/21 polyethylene glycoL 3350 [Miralax] 17 gm PO DAILY packet 08/29/21 Ertapenem [INVanz] 1 gm IVPB Q24H 7 Days #7 each 09/04/21 HYDROcodone/APAP 5-325MG [[place] 1 each PO Q6HR PRN #6 tab 09/04/21 5-325] Lactulose [Cephulac] 30 gm PO BID ml 09/04/21 Allergies Allergy/AdvReac Type Severity Reaction Status Date / Time codeine AdvReac Itching Verified 08/22/21 07:43 Review of Systems ROS Statement: Those systems with pertinent positive or pertinent negative responses have been documented in the HPI. ROS Other: All systems not noted in ROS Statement are negative. Past Medical History Past Medical History: Diabetes Mellitus, Hyperlipidemia, Hypertension, Myocar dial Infarction ([place]), Vascular Disorder Additional Past Medical History / Comment(s): DM type 2. Last Myocardial Infarction Date:: 1989 History of Any Multi-Drug Resistant Organisms: None Reported Past Surgical History: No Surgical Hx Reported Additional Past Surgical History / Comment(s): "Female surgery to help with .". vascular surgery to right leg Past Anesthesia/Blood Transfusion Reactions: No Reported Reaction Past Psychological History: No Psychological Hx Reported Smoking Status: Former smoker Past Alcohol Use History: None Reported, Rare Past Drug Use History: None Reported - Past Family History Mother Family Medical History: No Reported History General Exam General appearance: alert, in no apparent distress Head exam: Present: atraumatic, normocephalic, normal inspection Eye exam: Present: normal appearance, PERRL, EOMI. Absent: scleral icterus, conjunctival injection, periorbital swelling ENT exam: Present: normal exam, mucous membranes moist Neck exam: Present: normal inspection. Absent: tenderness, meningismus, lymphadenopathy Respiratory exam: Present: normal lung sounds bilaterally. Absent: respiratory distress, wheezes, rales, rhonchi, stridor Cardiovascular Exam: Present: regular rate, normal rhythm, normal heart sounds. Absent: systolic murmur, diastolic murmur, rubs, gallop, clicks GI/Abdominal exam: Present: soft, normal bowel sounds. Absent: distended, tenderness, guarding, rebound, rigid Extremities exam: Present: normal inspection, full ROM, normal capillary refill. Absent: tenderness, pedal edema, joint swelling, calf tenderness Back exam: Present: normal inspection Neurological exam: Present: alert, oriented X3, CN II-XII intact Psychiatric exam: Present: normal affect, normal mood Skin exam: Present: warm, dry, intact, normal color. Absent: rash Course Vital Signs 08/21/21 08/22/21 08/22/21 23:17 00:38 01:00 Temperature 97.8 F Pulse Rate 88 93 92 Pulse Rate [ Auto Hiker ] Respiratory 20 18 20 Rate Blood Pressure 99/60 95/60 117/51 Blood Pressure [Left Arm] O2 Sat by Pulse 97 97 Oximetry 08/22/21 08/22/21 08/22/21 01:27 01:30 02:40 Temperature 98.8 F 98.7 F Pulse Rate 90 93 Pulse Rate [ 70 Auto Hiker ] Respiratory 18 18 16 Rate Blood Pressure 113/69 115/54 Blood Pressure 114/70 [Left Arm] O2 Sat by Pulse 96 97 Oximetry 08/22/21 08/22/21 02:52 03:22 Temperature 98.9 F 98.4 F Pulse Rate 92 94 Pulse Rate [ Auto Hiker ] Respiratory 16 18 Rate Blood Pressure 117/67 116/72 Blood Pressure [Left Arm] O2 Sat by Pulse Oximetry - Reevaluation(s) Reevaluation #1: 08/22/21 01:12 Medical record is reviewed Reevaluation #2: 08/22/21 01:12 Patient informed of results and questions answered Reevaluation #3: 08/22/21 patient informed results and questions answered Patient symptoms are improved here in the emergency department Medical Decision Making - Medical Decision Making 70 female to the emergency department for evaluation of post surgery wound check. Significant anemia. He admitted for further evaluation consult by surgery. - Lab Data Result diagrams: 09/03/21 08:40 09/03/21 08:40 Lab Results 08/21/21 08/21/21 08/21/21 Range/Units 23:54 23:56 23:56 WBC 9.5 (3.8-10.6) k/uL RBC 1.79 L (3.80-5.40) m/uL Hgb 4.7 L* D (11.4-16.0) gm/dL Hct 15.7 L* (34.0-46.0) % MCV 87.8 (80.0-100.0) fL MCH 26.4 (25.0-35.0) pg MCHC 30.1 L (31.0-37.0) g/dL RDW 17.0 H (11.5-15.5) % Plt Count 411 (150-450) k/uL MPV 7.4 Neutrophils % 71 % Lymphocytes % 18 % Monocytes % 6 % Eosinophils % 3 % Basophils % 0 % Neutrophils # 6.8 (1.3-7.7) k/uL Lymphocytes # 1.7 (1.0-4.8) k/uL Monocytes # 0.6 (0-1.0) k/uL Eosinophils # 0.2 (0-0.7) k/uL Basophils # 0.0 (0-0.2) k/uL Hypochromasia Marked Poikilocytosis Slight Anisocytosis Slight PT 12.1 H (9.0-12.0) sec INR 1.1 (<1.2) APTT 24.8 (22.0-30.0) sec Sodium (137-145) mmol/L Potassium (3.5-5.1) mmol/L Chloride (98-107) mmol/L Carbon Dioxide (22-30) mmol/L Anion Gap mmol/L BUN (7-17) mg/dL Creatinine (0.52-1.04) mg/dL Est GFR (CKD-EPI)AfAm (>60 ml/min/1.73 sqM) Est GFR (CKD-EPI)NonAf (>60 ml/min/1.73 sqM) Glucose (74-99) mg/dL Plasma Lactic Acid Romeo (0.7-2.0) mmol/L Calcium (8.4-10.2) mg/dL Phosphorus (2.5-4.5) mg/dL Magnesium (1.6-2.3) mg/dL Total Bilirubin (0.2-1.3) mg/dL AST (14-36) U/L ALT (4-34) U/L Alkaline Phosphatase (38-126) U/L Troponin I (0.000-0.034) ng/mL Total Protein (6.3-8.2) g/dL Albumin (3.5-5.0) g/dL Blood Type O Positive Blood Type Recheck O Pos Bld Type Recheck Status No Antibody Screen NEGATIVE Crossmatch See Detail Spec Expiration Date 08/24/2021 - 235308/21/21 08/21/21 08/21/21 Range/Units 23:56 23:56 23:56 WBC (3.8-10.6) k/uL RBC (3.80-5.40) m/uL Hgb (11.4-16.0) gm/dL Hct (34.0-46.0) % MCV (80.0-100.0) fL MCH (25.0-35.0) pg MCHC (31.0-37.0) g/dL RDW (11.5-15.5) % Plt Count (150-450) k/uL MPV Neutrophils % % Lymphocytes % % Monocytes % % Eosinophils % % Basophils % % Neutrophils # (1.3-7.7) k/uL Lymphocytes # (1.0-4.8) k/uL Monocytes # (0-1.0) k/uL Eosinophils # (0-0.7) k/uL Basophils # (0-0.2) k/uL Hypochromasia Poikilocytosis Anisocytosis PT (9.0-12.0) sec INR (<1.2) APTT (22.0-30.0) sec Sodium 133 L (137-145) mmol/L Potassium 4.2 (3.5-5.1) mmol/L Chloride 104 (98-107) mmol/L Carbon Dioxide 22 (22-30) mmol/L Anion Gap 7 mmol/L BUN 31 H (7-17) mg/dL Creatinine 2.05 H (0.52-1.04) mg/dL Est GFR (CKD-EPI)AfAm 28 (>60 ml/min/1.73 sqM) Est GFR (CKD-EPI)NonAf 24 (>60 ml/min/1.73 sqM) Glucose 107 H (74-99) mg/dL Plasma Lactic Acid Romeo 0.8 (0.7-2.0) mmol/L Calcium 8.1 L (8.4-10.2) mg/dL Phosphorus 3.9 (2.5-4.5) mg/dL Magnesium 1.9 (1.6-2.3) mg/dL Total Bilirubin 0.4 (0.2-1.3) mg/dL AST 31 (14-36) U/L ALT 13 (4-34) U/L Alkaline Phosphatase 121 (38-126) U/L Troponin I 0.140 H* (0.000-0.034) ng/mL Total Protein 5.6 L (6.3-8.2) g/dL Albumin 2.5 L (3.5-5.0) g/dL Blood Type Blood Type Recheck Bld Type Recheck Status Antibody Screen Crossmatch Spec Expiration Date - EKG Data -: EKG Interpreted by Me (EKG is sinus rhythm 89 RI 160 QRS 101 QTC 389) Disposition Clinical Impression: Encounter for post surgical wound check, Anemia, Weakness, Elevated troponin Disposition: ADMITTED IP TO THIS HOSP Condition: Fair Is patient prescribed a controlled substance at d/c from ED?: No
[2021-08-22 00:13] LABS: Anisocytosis Slight; Basophils % (A) 0 %; Eosinophils # (A) 0.2 k/uL (0-0.7); Eosinophils % (A) 3 %; Hypochromasia Marked; Lymphocytes # (A) 1.7 k/uL (1.0-4.8); Lymphocytes % (A) 18 %; MCH 26.4 pg (25.0-35.0); MCHC 30.1 g/dL (31.0-37.0); MCV 87.8 fL (80.0-100.0); Mean Platelet Volume 7.4; Monocytes # (A) 0.6 k/uL (0-1.0); Monocytes % (A) 6 %; Neutrophils # (A) 6.8 k/uL (1.3-7.7); Neutrophils % (A) 71 %; Platelet Count 411 k/uL (150-450); Poikilocytosis Slight; RBC 1.79 m/uL (3.80-5.40); WBC 9.5 k/uL (3.8-10.6)
[2021-08-22 00:18] LABS: HCT 15.7 % (34.0-46.0); HGB 4.7 gm/dL (11.4-16.0)
[2021-08-22 00:31] LABS: INR 1.1 (<1.2); Partial Thromboplastin Time 24.8 sec (22.0-30.0); Prothrombin Time 12.1 sec (9.0-12.0)
[2021-08-22 00:34] LABS: Albumin 2.5 g/dL (3.5-5.0); Calcium 8.1 mg/dL (8.4-10.2); Magnesium 1.9 mg/dL (1.6-2.3); Phosphorus 3.9 mg/dL (2.5-4.5); Potassium 4.2 mmol/L (3.5-5.1); Total Bilirubin 0.4 mg/dL (0.2-1.3); Total Protein 5.6 g/dL (6.3-8.2)
[2021-08-22] MEDS ORDERED: NALOXONE 0.4 MG/ML 1 ML VIAL IV PRN (01:08)
[2021-08-22 06:13] LABS: Glucose,Whole Blood 115 mg/dL (75-99)
[2021-08-22] MEDS: SODIUM CHLORIDE 0.9% 1,000 ML IV SCH (09:29)
[2021-08-22] MEDS ORDERED: ACETAMINOPHEN TAB 325 MG TAB PO PRN (09:52)
[2021-08-22 10:00] LABS: HCT 23.4 % (34.0-46.0); Hypochromasia Marked; MCH 28.9 pg (25.0-35.0); MCHC 32.1 g/dL (31.0-37.0); MCV 89.8 fL (80.0-100.0); Mean Platelet Volume 7.3; Platelet Count 355 k/uL (150-450); Poikilocytosis Slight; RBC 2.61 m/uL (3.80-5.40); RDW 15.6 % (11.5-15.5); WBC 9.7 k/uL (3.8-10.6)
[2021-08-22 10:09] LABS: HGB 7.5 gm/dL (11.4-16.0)
--- NOTE | 2021-08-22 10:58 | P.GSCN ---
History of Present Illness Consult date: 08/22/21 Reason for Consult: Anemia, previous left lower extremity bypass Requesting physician: Scout Cerda History of present illness: This is a 70-year-old female known to vascular surgical services. 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 Mckeon. Patient was in rehab and had labs checked and was found to be anemic with a hemoglobin of 7.4 and was sent to the emergency department for further evaluation. On admission she was found to have a hemoglobin of 4.7 and his been given 1 unit of PRBC transfusion. No repeat hemoglobin has been obtained. Patient states that she has been feeling weak and fatigued. She denies any black stool, blood in her stool, nausea, vomiting or abdominal pain. She denies any previous history of colonoscopy or EGD. No history of previous peptic ulcer disease, denies NSAID use or history of blood transfusion. She states she has pain down her left lower extremity. She seems somewhat confused. Review of Systems 14 point review systems was completed all pertinent positives and negatives as stated in the HPI Past Medical History Past Medical History: Diabetes Mellitus, Hyperlipidemia, Hypertension, Myocardial Infarction ([place]), Vascular Disorder Additional Past Medical History / Comment(s): DM type 2. Last Myocardial Infarction Date:: 1989 History of Any Multi-Drug Resistant Organisms: None Reported Past Surgical History: No Surgical Hx Reported Additional Past Surgical History / Comment(s): "Female surgery to help with .". vascular surgery to right leg Past Anesthesia/Blood Transfusion Reactions: No Reported Reaction Past Psychological History: No Psychological Hx Reported Smoking Status: Former smoker Past Alcohol Use History: None Reported, Rare Additional Past Alcohol Use History / Comment(s): Quit smoking 28 yrs ago. Past Drug Use History: None Reported Additional Drug Use History / Comment(s): "Pot once in a great while". - Past Family History Mother Family Medical History: No Reported History Medications and Allergies Home Medications Medication Instructions Recorded Confirmed Type Aspirin 81 mg PO DAILY 07/16/21 08/22/21 History Ergocalciferol [Vitamin D2 (1250 1,250 mcg PO TU 07/16/21 08/22/21 History Mcg = 51622 Iu)] Magnesium Oxide [Magox 400] 400 mg PO HS 07/16/21 08/22/21 History metFORMIN HCL [Glucophage] 500 mg PO BID 07/16/21 08/22/21 History Vancomycin HCl in 5 % Dextrose 1 gm IV Q16H #30 each 07/24/21 08/22/21 Rx [Vancomycin 1 Gram/250 ml-D5w] Acetaminophen [Tylenol] 650 mg PO Q6H PRN 07/26/21 08/22/21 History Linagliptin [Tradjenta] 5 mg PO DAILY 07/26/21 08/22/21 History Tamsulosin [Flomax] 0.4 mg PO DAILY 07/26/21 08/22/21 History amLODIPine BESYLATE 10 mg PO HS 07/26/21 08/22/21 History cefTRIAXone SODIUM 2 gm IV Q24H 07/26/21 08/22/21 History HYDROcodone/APAP 5-325MG [[place] 1 tab PO Q6HR PRN #9 tab 07/31/21 08/22/21 Rx 5-325] Atorvastatin [Lipitor] 20 mg PO HS@199908/15/21 08/22/21 History Clopidogrel [Plavix] 75 mg PO HS@199908/15/21 08/22/21 History Docusate [Colace] 100 mg PO DAILY PRN 08/15/21 08/22/21 History Melatonin 5 mg PO HS@199908/15/21 08/22/21 History Multivitamins, Thera [Multivitamin 1 tab PO DAILY 08/15/21 08/22/21 History (formulary)] Promethazine HCl 12.5 mg PO Q8H PRN 08/15/21 08/22/21 History Ferrous Sulfate [Feosol] 325 mg PO HS@199908/22/21 08/22/21 History Allergies Allergy/AdvReac Type Severity Reaction Status Date / Time codeine AdvReac Itching Verified 08/22/21 07:43 Surgical - Exam Vital Signs Temp Pulse Resp BP Pulse Ox 97.8 F 88 20 99/60 97 08/21/21 23:17 08/21/21 23:17 08/21/21 23:17 08/21/21 23:17 08/21/21 23:17 General appearance: The patient is alert, oriented, appears in no acute distress. HET: Head is normocephalic and atraumatic. Pupils are equal and reactive. Neck: Supple without lymphadenopathy. Trachea midline. Heart: S1 S2. Regular rate and rhythm. Lungs: Clear to auscultation bilaterally. Abdomen: Soft, nontender, nondistended. Extremities: Normal skin color and turgor. Left lower extremity warm to the touch. Edema left lower extremity, with edema in thigh up to groin. Dressing intact to left foot. Left medial calf surgical incision open, minimal drainage, no bleeding, no redness. incision more proximal to lower calf with small to moderate amount of drainage, appears to be clear fluid. Left groin incision with minimal drainage. Tender to palpation. She has full range of motion of left lower extremity. Neurological: No focal deficits. Strength and sensation are grossly intact. Results - Labs 08/22/21 09:33 08/21/21 23:56 Abnormal Lab Results - Last 24 Hours (Table) 08/21/21 08/21/21 08/21/21 Range/Units 23:54 23:56 23:56 RBC 1.79 L (3.80-5.40) m/uL Hgb 4.7 L* D (11.4-16.0) gm/dL Hct 15.7 L* (34.0-46.0) % MCHC 30.1 L (31.0-37.0) g/dL RDW 17.0 H (11.5-15.5) % PT 12.1 H (9.0-12.0) sec Sodium (137-145) mmol/L BUN (7-17) mg/dL Creatinine (0.52-1.04) mg/dL Glucose (74-99) mg/dL POC Glucose (mg/dL) (75-99) mg/dL Calcium (8.4-10.2) mg/dL Troponin I (0.000-0.034) ng/mL Total Protein (6.3-8.2) g/dL Albumin (3.5-5.0) g/dL Crossmatch See Detail 08/21/21 08/21/21 08/22/21 Range/Units 23:56 23:56 06:12 RBC (3.80-5.40) m/uL Hgb (11.4-16.0) gm/dL Hct (34.0-46.0) % MCHC (31.0-37.0) g/dL RDW (11.5-15.5) % PT (9.0-12.0) sec Sodium 133 L (137-145) mmol/L BUN 31 H (7-17) mg/dL Creatinine 2.05 H (0.52-1.04) mg/dL Glucose 107 H (74-99) mg/dL POC Glucose (mg/dL) 115 H (75-99) mg/dL Calcium 8.1 L (8.4-10.2) mg/dL Troponin I 0.140 H* (0.000-0.034) ng/mL Total Protein 5.6 L (6.3-8.2) g/dL Albumin 2.5 L (3.5-5.0) g/dL Crossmatch Diabetes panel 08/21/21 Range/Units 23:56 Sodium 133 L (137-145) mmol/L Potassium 4.2 (3.5-5.1) mmol/L Chloride 104 (98-107) mmol/L Carbon Dioxide 22 (22-30) mmol/L BUN 31 H (7-17) mg/dL Creatinine 2.05 H (0.52-1.04) mg/dL Glucose 107 H (74-99) mg/dL Calcium 8.1 L (8.4-10.2) mg/dL AST 31 (14-36) U/L ALT 13 (4-34) U/L Alkaline Phosphatase 121 (38-126) U/L Total Protein 5.6 L (6.3-8.2) g/dL Albumin 2.5 L (3.5-5.0) g/dL Calcium panel 08/21/21 Range/Units 23:56 Calcium 8.1 L (8.4-10.2) mg/dL Phosphorus 3.9 (2.5-4.5) mg/dL Albumin 2.5 L (3.5-5.0) g/dL Pituitary panel 08/21/21 Range/Units 23:56 Sodium 133 L (137-145) mmol/L Potassium 4.2 (3.5-5.1) mmol/L Chloride 104 (98-107) mmol/L Carbon Dioxide 22 (22-30) mmol/L BUN 31 H (7-17) mg/dL Creatinine 2.05 H (0.52-1.04) mg/dL Glucose 107 H (74-99) mg/dL Calcium 8.1 L (8.4-10.2) mg/dL Adrenal panel 08/21/21 Range/Units 23:56 Sodium 133 L (137-145) mmol/L Potassium 4.2 (3.5-5.1) mmol/L Chloride 104 (98-107) mmol/L Carbon Dioxide 22 (22-30) mmol/L BUN 31 H (7-17) mg/dL Creatinine 2.05 H (0.52-1.04) mg/dL Glucose 107 H (74-99) mg/dL Calcium 8.1 L (8.4-10.2) mg/dL Total Bilirubin 0.4 (0.2-1.3) mg/dL AST 31 (14-36) U/L ALT 13 (4-34) U/L Alkaline Phosphatase 121 (38-126) U/L Total Protein 5.6 L (6.3-8.2) g/dL Albumin 2.5 L (3.5-5.0) g/dL Assessment and Plan Assessment: 1. Symptomatic Anemia 2. 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 Left femoral occlusion, tibial artery occlusive disease 4. Nonhealing wound to left ankle Plan: 1. Agree with blood transfusion 2. Arterial US ordered to assess patency of graft, however according to the US tech they do not assess grafts here at this hospital 3. Repeat CBC now, daily 4. There are no signs of surgical bleed related to recent vascular surgery 5. Consider hematology consultation for anemia The impression and plan of care has been dictated as directed. Dr. Colby I performed a history and examination of this patient, discussed the same with the dictator. I agree with the dictator's note ,documented as a scribe. Any additional findings or plans will be noted.
[2021-08-22 11:59] LABS: Glucose,Whole Blood 110 mg/dL (75-99)
[2021-08-22] MEDS: ONDANSETRON 4 MG/2 ML VIAL IVP PRN (12:54)
[2021-08-22] MEDS: MORPHINE SULFATE 4 MG/ML SYRINGE IV PRN ×2 (12:55→18:43)
--- NOTE | 2021-08-22 14:57 | P.CNOR ---
History of Present Illness - [facility] Consult date: 08/22/21 History of present illness: This patient is a 70- year old female with a past medical history type 2 diabetes, history of non-healing wounds that recently underwent left ankle ORIF for left ankle trimalleolar fracture dislocation on 06/14/[address] Proctor. She later developed lateral wound dehiscence and underwent an irrigation and tayla ridement of left lateral ankle wound on 07/16/21. Patient was evaluated by vascular surgery and underwent a left femoral to popliteal in situ vein bypass with left common femoral artery thrombo-endarterectomy with patch angioplasty on 07/29/[address] Mckeon. Patient presented to the emergency department on 08/15/21 and 08/17/21 for bleeding from the incisions from her vascular procedure. Patient again presented to the emergency department yesterday with hemoglobin of 4.7. Troponins were also elevated on admission. Orthopedics is consulted for evaluated of her left ankle. Patient is seen and examined bedside this morning. Patient is sleepy on exam and does not have any specific complaints. She is currently receiving 2 units of PRBCs. Vital signs stable. Past Medical History Past Medical History: Diabetes Mellitus, Hyperlipidemia, Hypertension, My ocardial Infarction ([place]), Vascular Disorder Additional Past Medical History / Comment(s): DM type 2. Last Myocardial Infarction Date:: 1989 History of Any Multi-Drug Resistant Organisms: None Reported Past Surgical History: No Surgical Hx Reported Additional Past Surgical History / Comment(s): "Female surgery to help with .". vascular surgery to right leg Past Anesthesia/Blood Transfusion Reactions: No Reported Reaction Past Psychological History: No Psychological Hx Reported Smoking Status: Former smoker Past Alcohol Use History: None Reported, Rare Additional Past Alcohol Use History / Comment(s): Quit smoking 28 yrs ago. Past Drug Use History: None Reported Additional Drug Use History / Comment(s): "Pot once in a great while". - Past Family History Mother Family Medical History: No Reported History Medications and Allergies Home Medications Medication Instructions Recorded Confirmed Type Aspirin 81 mg PO DAILY 07/16/21 08/22/21 History Ergocalciferol [Vitamin D2 (1250 1,250 mcg PO TU 07/16/21 08/22/21 History Mcg = 08688 Iu)] Magnesium Oxide [Magox 400] 400 mg PO HS 07/16/21 08/22/21 History metFORMIN HCL [Glucophage] 500 mg PO BID 07/16/21 08/22/21 History Vancomycin HCl in 5 % Dextrose 1 gm IV Q16H #30 each 07/24/21 08/22/21 Rx [Vancomycin 1 Gram/250 ml-D5w] Acetaminophen [Tylenol] 650 mg PO Q6H PRN 07/26/21 08/22/21 History Linagliptin [Tradjenta] 5 mg PO DAILY 07/26/21 08/22/21 History Tamsulosin [Flomax] 0.4 mg PO DAILY 07/26/21 08/22/21 History amLODIPine BESYLATE 10 mg PO HS 07/26/21 08/22/21 History cefTRIAXone SODIUM 2 gm IV Q24H 07/26/21 08/22/21 History HYDROcodone/APAP 5-325MG [[place] 1 tab PO Q6HR PRN #9 tab 07/31/21 08/22/21 Rx 5-325] Atorvastatin [Lipitor] 20 mg PO HS@199908/15/21 08/22/21 History Clopidogrel [Plavix] 75 mg PO HS@199908/15/21 08/22/21 History Docusate [Colace] 100 mg PO DAILY PRN 08/15/21 08/22/21 History Melatonin 5 mg PO HS@199908/15/21 08/22/21 History Multivitamins, Thera [Multivitamin 1 tab PO DAILY 08/15/21 08/22/21 History (formulary)] Promethazine HCl 12.5 mg PO Q8H PRN 08/15/21 08/22/21 History Ferrous Sulfate [Feosol] 325 mg PO HS@199908/22/21 08/22/21 History Allergies Allergy/AdvReac Type Severity Reaction Status Date / Time codeine AdvReac Itching Verified 08/22/21 07:43 Physical Examination on examination, patient is lying in bed in no current distress. She is alert and answers questions verbally. She is sleepy on exam. Focused examination of the left ankle is conducted. the bilateral feet are protected in protective padded boots. On inspection of the left ankle, there is a clean, dry, intact dressing in place. The visible portion of the toes are warm and well perfused. No pain with passive range of motion of the toes. Patient is able to wiggle toes appropriate. Calf is soft and non-tender. Results - Labs Labs: Abnormal Lab Results - Last 24 Hours (Table) 08/21/21 08/21/21 08/21/21 Range/Units 23:54 23:56 23:56 RBC 1.79 L (3.80-5.40) m/uL Hgb 4.7 L* D (11.4-16.0) gm/dL Hct 15.7 L* (34.0-46.0) % MCHC 30.1 L (31.0-37.0) g/dL RDW 17.0 H (11.5-15.5) % PT 12.1 H (9.0-12.0) sec Sodium (137-145) mmol/L BUN (7-17) mg/dL Creatinine (0.52-1.04) mg/dL Glucose (74-99) mg/dL POC Glucose (mg/dL) (75-99) mg/dL Calcium (8.4-10.2) mg/dL Troponin I (0.000-0.034) ng/mL Total Protein (6.3-8.2) g/dL Albumin (3.5-5.0) g/dL Crossmatch See Detail 08/21/21 08/21/21 08/22/21 Range/Units 23:56 23:56 06:12 RBC (3.80-5.40) m/uL Hgb (11.4-16.0) gm/dL Hct (34.0-46.0) % MCHC (31.0-37.0) g/dL RDW (11.5-15.5) % PT (9.0-12.0) sec Sodium 133 L (137-145) mmol/L BUN 31 H (7-17) mg/dL Creatinine 2.05 H (0.52-1.04) mg/dL Glucose 107 H (74-99) mg/dL POC Glucose (mg/dL) 115 H (75-99) mg/dL Calcium 8.1 L (8.4-10.2) mg/dL Troponin I 0.140 H* (0.000-0.034) ng/mL Total Protein 5.6 L (6.3-8.2) g/dL Albumin 2.5 L (3.5-5.0) g/dL Crossmatch 08/22/21 08/22/21 Range/Units 09:33 11:51 RBC 2.61 L (3.80-5.40) m/uL Hgb 7.5 L D (11.4-16.0) gm/dL Hct 23.4 L (34.0-46.0) % MCHC (31.0-37.0) g/dL RDW 15.6 H (11.5-15.5) % PT (9.0-12.0) sec Sodium (137-145) mmol/L BUN (7-17) mg/dL Creatinine (0.52-1.04) mg/dL Glucose (74-99) mg/dL POC Glucose (mg/dL) 110 H (75-99) mg/dL Calcium (8.4-10.2) mg/dL Troponin I (0.000-0.034) ng/mL Total Protein (6.3-8.2) g/dL Albumin (3.5-5.0) g/dL Crossmatch H & H 08/21/21 08/22/21 Range/Units 23:56 09:33 Hgb 4.7 L* D 7.5 L D (11.4-16.0) gm/dL Hct 15.7 L* 23.4 L (34.0-46.0) % Coagulation 08/21/21 Range/Units 23:56 INR 1.1 (<1.2) Result Diagrams: 08/22/21 09:33 08/21/21 23:56 Assessment and Plan Assessment: Left ankle ORIF for left ankle trimalleolar fracture dislocation on 06/14/21 Irrigation and debridement of left lateral ankle wound due to lateral wound dehiscence on 07/16/21 Plan: - Strict non-weight bearing left lower extremity while wearing tall CAM boot. She does not need to wear tall CAM boot in bed. - Will defer care of left ankle wounds to the wound care team. Recommend consult with wound care team while patient is inpatient. - We will follow patient closely while she remains inpatient.
[2021-08-22 16:27] LABS: Glucose,Whole Blood 134 mg/dL (75-99)
[2021-08-22 16:42] LABS: Anisocytosis Slight; HCT 24.6 % (34.0-46.0); HGB 7.6 gm/dL (11.4-16.0); Hypochromasia Marked; MCH 27.4 pg (25.0-35.0); MCHC 30.9 g/dL (31.0-37.0); MCV 88.5 fL (80.0-100.0); Mean Platelet Volume 7.4; Platelet Count 365 k/uL (150-450); Poikilocytosis Moderate; RBC 2.79 m/uL (3.80-5.40); RDW 16.1 % (11.5-15.5); WBC 9.4 k/uL (3.8-10.6)
[2021-08-22 20:16] LABS: Glucose,Whole Blood 124 mg/dL (75-99)
--- NOTE | 2021-08-22 22:09 | P.HPIM ---
History of Present Illness H&P Date: 08/22/21 Chief Complaint: low Hb Patient is a 70-year-old female with a known history of hypertension, hyperlipidemia, peripheral vascular disease status post left femoropopliteal in situ vein bypass with a left common femoral artery thromboendarterectomy with patch angioplasty on 07/29/2021, nonhealing left ankle fracture wound and previous history of smoking was sent to hospital from the rehab due to low hemoglobin level. Otherwise denied any hematemesis melena. No cough or sputum production. No chest pain or shortness of. No complaints of abdominal pain. Patient is also feeling weak and lethargic. On admission hemoglobin found to be 4.7 and patient was given 1 unit of PRBC. Repeat hemoglobin this morning showed at 7.5. No active bleeding at the left ankle surgical site noted. Other laboratory showed WBC 9.5 hemoglobin 4.7 platelets 411 MCV 87.8 Sodium 133 potassium 4.2 chloride 104 bicarb is 22 BUN 31 and creatinine 2.05 Previous creatinine level 0.93 about a week ago. Calcium 8.1 liver enzymes are not elevated and troponin is 0.140 and albumin 2.5. Review of Systems Constitutional: Patient denies any fever or chills . Patient does have generalized weakness and fatigue. Abdomen: Patient denied nausea vomiting and diarrhea and abdominal pain. No hematemesis or melena. Cardiovascular: Patient denies any chest pain or short of breath no palpitations. Respiratory: patient denied any cough or sputum production. No shortness of breath Neurologic: Patient denied any numbness or tingling headache. Musculoskeletal: Patient denies any complaints of joint swelling or deformity. Left ankle pain. Skin: Negative Psychiatric: Negative Endocrine: No heat or cold intolerance. No recent weight gain. Genitourinary: No dysuria or hematuria. All other 14 point ROS negative except the above Past Medical History Past Medical History: Diabetes Mellitus, Hyperlipidemia, Hypertension, Myocardia l Infarction ([place]), Vascular Disorder Additional Past Medical History / Comment(s): DM type 2. Last Myocardial Infarction Date:: Approx 1989 History of Any Multi-Drug Resistant Organisms: None Reported Past Surgical History: No Surgical Hx Reported Additional Past Surgical History / Comment(s): "Female surgery to help with .". vascular surgery to right leg Past Anesthesia/Blood Transfusion Reactions: No Reported Reaction Past Psychological History: No Psychological Hx Reported Smoking Status: Former smoker Past Alcohol Use History: None Reported, Rare Additional Past Alcohol Use History / Comment(s): Quit smoking 28 yrs ago. Past Drug Use History: None Reported Additional Drug Use History / Comment(s): "Pot once in a great while". - Past Family History Mother Family Medical History: No Reported History Medications and Allergies Home Medications Medication Instructions Recorded Confirmed Type Aspirin 81 mg PO DAILY 07/16/21 08/22/21 History Ergocalciferol [Vitamin D2 (1250 1,250 mcg PO TU 07/16/21 08/22/21 History Mcg = 90361 Iu)] Magnesium Oxide [Magox 400] 400 mg PO HS 07/16/21 08/22/21 History metFORMIN HCL [Glucophage] 500 mg PO BID 07/16/21 08/22/21 History Vancomycin HCl in 5 % Dextrose 1 gm IV Q16H #30 each 07/24/21 08/22/21 Rx [Vancomycin 1 Gram/250 ml-D5w] Acetaminophen [Tylenol] 650 mg PO Q6H PRN 07/26/21 08/22/21 History Linagliptin [Tradjenta] 5 mg PO DAILY 07/26/21 08/22/21 History Tamsulosin [Flomax] 0.4 mg PO DAILY 07/26/21 08/22/21 History amLODIPine BESYLATE 10 mg PO HS 07/26/21 08/22/21 History cefTRIAXone SODIUM 2 gm IV Q24H 07/26/21 08/22/21 History HYDROcodone/APAP 5-325MG [[place] 1 tab PO Q6HR PRN #9 tab 07/31/21 08/22/21 Rx 5-325] Atorvastatin [Lipitor] 20 mg PO HS@199908/15/21 08/22/21 History Clopidogrel [Plavix] 75 mg PO HS@199908/15/21 08/22/21 History Docusate [Colace] 100 mg PO DAILY PRN 08/15/21 08/22/21 History Melatonin 5 mg PO HS@199908/15/21 08/22/21 History Multivitamins, Thera [Multivitamin 1 tab PO DAILY 08/15/21 08/22/21 History (formulary)] Promethazine HCl 12.5 mg PO Q8H PRN 08/15/21 08/22/21 History Ferrous Sulfate [Feosol] 325 mg PO HS@199908/22/21 08/22/21 History Allergies Allergy/AdvReac Type Severity Reaction Status Date / Time codeine AdvReac Itching Verified 08/22/21 07:43 Physical Exam Vitals: Vital Signs Temp Pulse Pulse Resp BP BP Pulse Ox 08/22/21 09:27 99.3 F 87 16 135/69 93 L 08/22/21 06:32 98.4 F 82 18 134/76 93 L 08/22/21 06:12 98.6 F 88 18 120/60 92 L 08/22/21 05:52 98.4 F 80 18 118/62 93 L 08/22/21 05:36 98.5 F 80 118/70 08/22/21 03:22 98.4 F 94 18 116/72 08/22/21 02:52 98.9 F 92 16 117/67 08/22/21 02:40 98.7 F 93 16 115/54 08/22/21 01:30 90 18 113/69 97 08/22/21 01:27 98.8 F 70 18 114/70 96 08/22/21 01:00 92 20 117/51 97 08/22/21 00:38 93 18 95/60 08/21/21 23:17 97.8 F 88 20 99/60 97 Intake and Output 08/21/21 08/22/21 08/22/21 22:59 06:59 14:59 Intake Total 310 310 Balance 310 310 Intake: Blood Product 310 310 Rc As-1 Unit 0 310 [id number] Rc As-1 Unit 310 [id number] Other: Weight 74.843 kg PHYSICAL EXAMINATION: Patient is lying in the bed comfortably, no acute distress, awake alert and oriented.. Lethargic and drowsy. HEENT: Normocephalic. Neck is supple. Pupils reactive. Nostrils clear. Oral cavity is moist. Neck reveals no JVD, carotid bruits, or thyromegaly. CHEST EXAMINATION: Trachea is central. Symmetrical expansion. Bibasilar diminished sounds, lung iniguez clear to auscultation and percussion. CARDIAC: Normal S1, S2 with no gallops. No murmurs ABDOMEN: Soft. Bowel sounds normal. No organomegaly. No abdominal bruits. Extremities: reveal no edema. No clubbing or cyanosis Neurologically awake, alert, oriented x3 with well-coordinated movements. No focal deficits noted Skin: No rash or skin lesions. Psychiatric: Cooperative. Nonsuicidal Musculoskeletal: No joint swelling or deformity. Normal range of motion. Left ankle surgical site is bandaged. Results CBC & Chem 7: 08/22/21 15:30 08/21/21 23:56 Labs: Abnormal Lab Results - Last 24 Hours (Table) 08/21/21 08/21/21 08/21/21 Range/Units 23:54 23:56 23:56 RBC 1.79 L (3.80-5.40) m/uL Hgb 4.7 L* D (11.4-16.0) gm/dL Hct 15.7 L* (34.0-46.0) % MCHC 30.1 L (31.0-37.0) g/dL RDW 17.0 H (11.5-15.5) % PT 12.1 H (9.0-12.0) sec Sodium (137-145) mmol/L BUN (7-17) mg/dL Creatinine (0.52-1.04) mg/dL Glucose (74-99) mg/dL POC Glucose (mg/dL) (75-99) mg/dL Calcium (8.4-10.2) mg/dL Troponin I (0.000-0.034) ng/mL Total Protein (6.3-8.2) g/dL Albumin (3.5-5.0) g/dL Crossmatch See Detail 08/21/21 08/21/21 08/22/21 Range/Units 23:56 23:56 06:12 RBC (3.80-5.40) m/uL Hgb (11.4-16.0) gm/dL Hct (34.0-46.0) % MCHC (31.0-37.0) g/dL RDW (11.5-15.5) % PT (9.0-12.0) sec Sodium 133 L (137-145) mmol/L BUN 31 H (7-17) mg/dL Creatinine 2.05 H (0.52-1.04) mg/dL Glucose 107 H (74-99) mg/dL POC Glucose (mg/dL) 115 H (75-99) mg/dL Calcium 8.1 L (8.4-10.2) mg/dL Troponin I 0.140 H* (0.000-0.034) ng/mL Total Protein 5.6 L (6.3-8.2) g/dL Albumin 2.5 L (3.5-5.0) g/dL Crossmatch Thrombosis Risk Factor Assmnt - DVT/VTE Prophylaxis DVT/VTE Prophylaxis: Mechanical Prophylaxis ordered - Choose All That Apply Other Risk Factors: Yes Each Risk Factor Represents 2 Points: Age 61-74 years Other congenital or acquired thrombophilia - If yes, enter type in comment: No Thrombosis Risk Factor Assessment Total Risk Factor Score: 2 Thrombosis Risk Factor Assessment Level: Low Risk Assessment and Plan Assessment: Symptomatic anemia with hemoglobin 4.7 on admission Acute kidney injury likely prerenal. possible AIN with pt being on vancomycin Elevated troponin. likely demand ischemia. Hypovolemic hyponatremia Nonhealing left ankle fracture wound. No active bleeding noted. Status post left femoropopliteal in situ vein graft, left, femoral artery thromboendarterectomy with patch angioplasty on 07/29/2021. Hypertension Hyperlipidemia Diabetes type 2 [id number] History of [place] Previous history of smoking Plan: Patient was posses with 1 unit of PRBC on admission and hemoglobin improved to 7.5 today. Continue to monitor H&H. No active bleeding noted. Patient denied any hematemesis or melena. Continue with IV hydration and monitor renal function. Hold blood pressure medications and continue with insulin sliding scale. Chronic pain management. Vascular surgery was consulted for evaluation of surgical wound. Continue to follow closely. Time with Patient: Greater than 30
[2021-08-22] MEDS: ATORVASTATIN 20 MG TAB PO SCH (22:42)
[2021-08-22] MEDS: PANTOPRAZOLE 40 MG TABLET PO SCH (22:42)
--- NOTE | 2021-08-22 23:02 | P.CONS ---
History of Present Illness - Reason for Consult Consult date: 08/22/21 Lower extremity wound patient on vancomycin Requesting physician: Nell Mendez - Chief Complaint Abnormal labs and not feeling well few days x - History of Present Illness Patient is a 70-year female with a recent history of left ankle ORIF for left ankle trimalleolar fracture dislocation on June 14, 2021 patient subsequently being lateral wound dehiscence and underwent irrigation debridement of the left lateral ankle wound on 07/16/2021 with concern for high risk of secondary wound infection patient was advised a 6-week course of IV Rocephin and vancomycin with the patient is currently receiving for almost 6 weeks now patient subsequently was evaluated by vascular surgery and underwent a left femoral to popliteal in situ vein bypass graft with left common femoral artery thromboendarterectomy with patch angioplasty on 07/29/2021 patient was noticed to have low hemoglobin on the blood drawn outpatient setting for the patient was sent to the ER for further evaluation patient at the time of evaluation has been complaining of feeling weak tired and no energy she has been complaining of pain to her left lower extremity more for the leaking 3-4-no radiation patient complaining of some bleeding on the left thigh and the leg wound area and also have wound to the left groin but no significant drainage with the symptom the patient has been evaluated by ER physician on arrival to the ER the patient was afebrile patient did have a normal white count her kidney function was elevated with a creatinine 2.05 liver enzymes are normal infectious disease was consulted for management of antibiotic and lower extremity wound Review of Systems Positive point has been mentioned in the HPI rest of the systems are negative Past Medical History Past Medical History: Diabetes Mellitus, Hyperlipidemia, Hypertension, Myocardial Infarction ([place]), Vascular Disorder Additional Past Medical History / Comment(s): DM type 2. Last Myocardial Infarction Date:: 1989 History of Any Multi-Drug Resistant Organisms: None Reported Past Surgical History: No Surgical Hx Reported Additional Past Surgical History / Comment(s): "Female surgery to help with .". vascular surgery to right leg Past Anesthesia/Blood Transfusion Reactions: No Reported Reaction Past Psychological History: No Psychological Hx Reported Smoking Status: Former smoker Past Alcohol Use History: None Reported, Rare Additional Past Alcohol Use History / Comment(s): Quit smoking 28 yrs ago. Past Drug Use History: None Reported Additional Drug Use History / Comment(s): "Pot once in a great while". - Past Family History Mother Family Medical History: No Reported History Medications and Allergies Home Medications Medication Instructions Recorded Confirmed Type Aspirin 81 mg PO DAILY 07/16/21 08/22/21 History Ergocalciferol [Vitamin D2 (1250 1,250 mcg PO TU 07/16/21 08/22/21 History Mcg = 02303 Iu)] Magnesium Oxide [Magox 400] 400 mg PO HS 07/16/21 08/22/21 History metFORMIN HCL [Glucophage] 500 mg PO BID 07/16/21 08/22/21 History Vancomycin HCl in 5 % Dextrose 1 gm IV Q16H #30 each 07/24/21 08/22/21 Rx [Vancomycin 1 Gram/250 ml-D5w] Acetaminophen [Tylenol] 650 mg PO Q6H PRN 07/26/21 08/22/21 History Linagliptin [Tradjenta] 5 mg PO DAILY 07/26/21 08/22/21 History Tamsulosin [Flomax] 0.4 mg PO DAILY 07/26/21 08/22/21 History amLODIPine BESYLATE 10 mg PO HS 07/26/21 08/22/21 History cefTRIAXone SODIUM 2 gm IV Q24H 07/26/21 08/22/21 History HYDROcodone/APAP 5-325MG [[place] 1 tab PO Q6HR PRN #9 tab 07/31/21 08/22/21 Rx 5-325] Atorvastatin [Lipitor] 20 mg PO HS@199908/15/21 08/22/21 History Clopidogrel [Plavix] 75 mg PO HS@199908/15/21 08/22/21 History Docusate [Colace] 100 mg PO DAILY PRN 08/15/21 08/22/21 History Melatonin 5 mg PO HS@199908/15/21 08/22/21 History Multivitamins, Thera [Multivitamin 1 tab PO DAILY 08/15/21 08/22/21 History (formulary)] Promethazine HCl 12.5 mg PO Q8H PRN 08/15/21 08/22/21 History Ferrous Sulfate [Feosol] 325 mg PO HS@199908/22/21 08/22/21 History Allergies Allergy/AdvReac Type Severity Reaction Status Date / Time codeine AdvReac Itching Verified 08/22/21 07:43 Physical Exam Vitals: Vital Signs Temp Pulse Pulse Resp BP BP Pulse Ox 08/22/21 12:00 98.2 F 87 18 123/72 93 L 08/22/21 09:27 97.7 F 87 70 16 135/69 93 L 08/22/21 06:32 98.4 F 82 18 134/76 93 L 08/22/21 06:12 98.6 F 88 18 120/60 92 L 08/22/21 05:52 98.4 F 80 18 118/62 93 L 08/22/21 05:36 98.5 F 80 118/70 08/22/21 03:22 98.4 F 94 18 116/72 08/22/21 02:52 98.9 F 92 16 117/67 08/22/21 02:40 98.7 F 93 16 115/54 08/22/21 01:30 90 18 113/69 97 08/22/21 01:27 98.8 F 70 18 114/70 96 08/22/21 01:00 92 20 117/51 97 08/22/21 00:38 93 18 95/60 08/21/21 23:17 97.8 F 88 20 99/60 97 Intake and Output 08/21/21 08/22/21 08/22/21 22:59 06:59 14:59 Intake Total 310 570 Balance 310 570 Intake: Oral 260 Blood Product 310 310 Rc As-1 Unit 0 310 [id number] Rc As-1 Unit 310 [id number] Other: Voiding Method Diaper Weight 74.843 kg GENERAL DESCRIPTION: Elderly female lying in bed, no distress. No tachypnea or accessory muscle of respiration use. HEENT: Shows Pallor , no scleral icterus. Oral mucous membrane is dry. No pharyngeal erythema or thrush NECK: Trachea central, no thyromegaly. LUNGS: Unlabored breathing. Clear to auscultation anteriorly. No wheeze or crackle. HEART: S1, S2, regular rate and rhythm. No loud murmur ABDOMEN: Soft, no tenderness , guarding or rigidity, no organomegaly EXTREMITIES: Left groin did have a wound with slough tissue and some induration but no redness, patient did have a wound to the left thigh as well as left lower leg on the medial side with no slough tissue or surrounding redness Left foot dorsum did have to wounds which have been covered with a dry scab, le ft heel with a stage II pressure ulcer no surrounding redness right heel with a stage I pressure ulcer with no surrounding redness. SKIN: No rash, no masses palpable. NEUROLOGICAL: The patient is awake, alert, oriented x3, mood and affect normal. Results CBC & Chem 7: 08/22/21 15:30 08/21/21 23:56 Labs: Abnormal Lab Results - Last 24 Hours (Table) 08/21/21 08/21/21 08/21/21 Range/Units 23:54 23:56 23:56 RBC 1.79 L (3.80-5.40) m/uL Hgb 4.7 L* D (11.4-16.0) gm/dL Hct 15.7 L* (34.0-46.0) % MCHC 30.1 L (31.0-37.0) g/dL RDW 17.0 H (11.5-15.5) % PT 12.1 H (9.0-12.0) sec Sodium (137-145) mmol/L BUN (7-17) mg/dL Creatinine (0.52-1.04) mg/dL Glucose (74-99) mg/dL POC Glucose (mg/dL) (75-99) mg/dL Calcium (8.4-10.2) mg/dL Troponin I (0.000-0.034) ng/mL Total Protein (6.3-8.2) g/dL Albumin (3.5-5.0) g/dL Crossmatch See Detail 08/21/21 08/21/21 08/22/21 Range/Units 23:56 23:56 06:12 RBC (3.80-5.40) m/uL Hgb (11.4-16.0) gm/dL Hct (34.0-46.0) % MCHC (31.0-37.0) g/dL RDW (11.5-15.5) % PT (9.0-12.0) sec Sodium 133 L (137-145) mmol/L BUN 31 H (7-17) mg/dL Creatinine 2.05 H (0.52-1.04) mg/dL Glucose 107 H (74-99) mg/dL POC Glucose (mg/dL) 115 H (75-99) mg/dL Calcium 8.1 L (8.4-10.2) mg/dL Troponin I 0.140 H* (0.000-0.034) ng/mL Total Protein 5.6 L (6.3-8.2) g/dL Albumin 2.5 L (3.5-5.0) g/dL Crossmatch 08/22/21 08/22/21 Range/Units 09:33 11:51 RBC 2.61 L (3.80-5.40) m/uL Hgb 7.5 L D (11.4-16.0) gm/dL Hct 23.4 L (34.0-46.0) % MCHC (31.0-37.0) g/dL RDW 15.6 H (11.5-15.5) % PT (9.0-12.0) sec Sodium (137-145) mmol/L BUN (7-17) mg/dL Creatinine (0.52-1.04) mg/dL Glucose (74-99) mg/dL POC Glucose (mg/dL) 110 H (75-99) mg/dL Calcium (8.4-10.2) mg/dL Troponin I (0.000-0.034) ng/mL Total Protein (6.3-8.2) g/dL Albumin (3.5-5.0) g/dL Crossmatch Assessment and Plan (1) Non-pressure chronic ulcer of other part of left foot with fat layer exposed Current Visit: No Status: Acute Code(s): L97.522 - NON-PRS CHRONIC ULCER OTH PRT LEFT FOOT W FAT LAYER EXPOSED SNOMED Code(s): 059233208 (2) Non-pressure ulcer of left lower extremity with fat layer exposed Current Visit: No Status: Acute Code(s): L97.922 - NON-PRS CHR ULC UNSP PRT OF L LOW LEG W FAT LAYER EXPOSED SNOMED Code(s): 29810864 (3) Postoperative wound dehiscence Current Visit: No Status: Acute Code(s): T81.31XA - DISRUPTION OF EXTERNAL OPERATION (SURGICAL) WOUND, NEC, INIT SNOMED Code(s): 966496248 Plan: 1patient with a nonhealing wound to the left groin with some slough tissue but no definite cellulitis recommend local wound care with the Medihoney followed by moist dressing change daily. 2patient with left thigh and leg wound with no slough tissue or surrounding redness local wound care with a dry Aquacel silver dressing. 3patient with stage II pressure ulcer of the left heel area with no surrounding cellulitis local wound care with the dry Aquacel silver dressing daily of the pressure. 4patient with a stage I pressure ulcer to the right heel area with no open wound or any cellulitis recommend local care by keeping the area of the pressure no need for any dressing or creams. 5patient received almost 6-week course of Rocephin and vancomycin currently wound does not look infected has recommended no further antibiotic therapy at this point. We will follow on clinical condition and cultures to further adjust medication if needed Thank you for this consultation we will follow the patient along with you Time with Patient: Greater than 30
[2021-08-23 06:16] LABS: Glucose,Whole Blood 116 mg/dL (75-99)
[2021-08-23] MEDS: SODIUM CHLORIDE 0.9% 1,000 ML IV SCH ×2 (06:45→17:31)
[2021-08-23] MEDS: PANTOPRAZOLE 40 MG TABLET PO SCH (06:45)
[2021-08-23] MEDS: INSULIN ASPART (NovoLOG) 100 UNIT/ML VIAL SQ SCH ×4 (06:45→21:39)
[2021-08-23 08:08] LABS: Basophils % (A) 0 %; Eosinophils # (A) 0.4 k/uL (0-0.7); Eosinophils % (A) 5 %; HCT 24.5 % (34.0-46.0); HGB 7.8 gm/dL (11.4-16.0); Hypochromasia Marked; Lymphocytes # (A) 1.4 k/uL (1.0-4.8); Lymphocytes % (A) 18 %; MCH 28.8 pg (25.0-35.0); MCHC 31.8 g/dL (31.0-37.0); MCV 90.6 fL (80.0-100.0); Mean Platelet Volume 7.7; Monocytes # (A) 0.6 k/uL (0-1.0); Monocytes % (A) 8 %; Neutrophils # (A) 5.1 k/uL (1.3-7.7); Neutrophils % (A) 67 %; Platelet Count 341 k/uL (150-450); Poikilocytosis Moderate; RDW 15.4 % (11.5-15.5); WBC 7.7 k/uL (3.8-10.6)
[2021-08-23 08:15] LABS: Albumin 2.3 g/dL (3.5-5.0); Calcium 7.8 mg/dL (8.4-10.2); Potassium 4.4 mmol/L (3.5-5.1); Total Bilirubin 0.4 mg/dL (0.2-1.3); Total Protein 5.3 g/dL (6.3-8.2)
[2021-08-23 08:27] LABS: C Reactive Protein 4.5 mg/dL (<1.0)
[2021-08-23] MEDS: TAMSULOSIN 0.4 MG CAP.ER.24H PO SCH (09:06)
--- NOTE | 2021-08-23 10:31 | P.PN ---
Subjective Progress Note Date: 08/23/21 Principal diagnosis: Anemia Patient was seen and examined lying in bed. Repeat hemoglobin today status post 2 units of PRBC transfusion as 7.8. Infectious disease and hematology have been consulted. Patient has no signs of postop bleeding. She does have some postop discomfort on the left leg with multiple wounds. Wound care has been consulted as well. She's been afebrile. No leukocytosis. Objective - Vital Signs Vital signs: Vital Signs Temp 98.1 F 08/23/21 04:00 Pulse 80 08/23/21 04:00 Resp 18 08/23/21 04:00 BP 133/75 08/23/21 04:00 Pulse Ox 94 L 08/23/21 04:00 Intake & Output 08/22/21 08/23/21 08/23/21 18:59 06:59 18:59 Intake Total 1050 960 118 Balance 1050 960 118 Intake: Oral 740 960 118 Blood Product 310 Rc As-1 Unit 310 [id number] Other: Voiding Method Diaper Diaper # Voids 1 2 - Exam General appearance: The patient is alert, oriented, appears in no acute distress. HET: Head is normocephalic and atraumatic. Neck: Supple without lymphadenopathy. Trachea midline. No audible carotid bruit. Abdomen: Soft, nontender, nondistended. Extremities: Normal skin color and turgor. Left lower extremity warm to the touch. Edema left lower extremity, with edema in thigh up to groin. Multiple dressings intact to left lower extremity wounds. Tender to palpation. She has full range of motion of left lower extremity. Multiphasic femoral and popliteal signal, positive Doppler signal over left graft. Neurological: No focal deficits. Strength and sensation are grossly intact. - Labs CBC & Chem 7: 08/23/21 07:14 08/23/21 07:14 Labs: Abnormal Lab Results - Last 24 Hours (Table) 08/22/21 08/22/21 08/22/21 Range/Units 11:51 15:30 16:26 RBC 2.79 L (3.80-5.40) m/uL Hgb 7.6 L (11.4-16.0) gm/dL Hct 24.6 L (34.0-46.0) % MCHC 30.9 L (31.0-37.0) g/dL RDW 16.1 H (11.5-15.5) % Sodium (137-145) mmol/L BUN (7-17) mg/dL Creatinine (0.52-1.04) mg/dL Glucose (74-99) mg/dL POC Glucose (mg/dL) 110 H 134 H (75-99) mg/dL Calcium (8.4-10.2) mg/dL Troponin I (0.000-0.034) ng/mL C-Reactive Protein (<1.0) mg/dL Total Protein (6.3-8.2) g/dL Albumin (3.5-5.0) g/dL 08/22/21 08/23/21 08/23/21 Range/Units 20:14 06:14 07:14 RBC 2.70 L (3.80-5.40) m/uL Hgb 7.8 L (11.4-16.0) gm/dL Hct 24.5 L (34.0-46.0) % MCHC (31.0-37.0) g/dL RDW (11.5-15.5) % Sodium (137-145) mmol/L BUN (7-17) mg/dL Creatinine (0.52-1.04) mg/dL Glucose (74-99) mg/dL POC Glucose (mg/dL) 124 H 116 H (75-99) mg/dL Calcium (8.4-10.2) mg/dL Troponin I (0.000-0.034) ng/mL C-Reactive Protein (<1.0) mg/dL Total Protein (6.3-8.2) g/dL Albumin (3.5-5.0) g/dL 08/23/21 08/23/21 Range/Units 07:14 07:14 RBC (3.80-5.40) m/uL Hgb (11.4-16.0) gm/dL Hct (34.0-46.0) % MCHC (31.0-37.0) g/dL RDW (11.5-15.5) % Sodium 132 L (137-145) mmol/L BUN 32 H (7-17) mg/dL Creatinine 1.94 H (0.52-1.04) mg/dL Glucose 103 H (74-99) mg/dL POC Glucose (mg/dL) (75-99) mg/dL Calcium 7.8 L (8.4-10.2) mg/dL Troponin I 0.114 H* (0.000-0.034) ng/mL C-Reactive Protein 4.5 H (<1.0) mg/dL Total Protein 5.3 L (6.3-8.2) g/dL Albumin 2.3 L (3.5-5.0) g/dL Assessment and Plan Assessment: 1. Symptomatic Anemia, no indication postop bleed 2. Status post left fem-pop in situ vein bypass graft, left CHIEF RADIATION THERAPIST thro mboendarterectomy with patch angioplasty 07/29/2021 3. Left femoral occlusion, tibial artery occlusive disease 4. Nonhealing wound to left ankle Plan: 1. Arterial US ordered to assess patency of graft, however according to the US tech they do not assess grafts here at this hospital 2. Hematology on consult 3. Infectious diseases on consult 4. There are no signs of surgical bleed related to recent vascular surgery 5. Wound clinic on consult, continue local wound care per their recommendations 6. Follow-up with Dr. Mckeon in 1-2 weeks The impression and plan of care has been dictated as directed. Dr. Sharpe I performed a history and examination of this patient, discussed the same with the dictator. I agree with the dictator's note ,documented as a scribe. Any additional findings or plans will be noted.
--- NOTE | 2021-08-23 11:53 | P.CONS ---
History of Present Illness - Reason for Consult Consult date: 08/23/21 wound care - History of Present Illness Is a 70-year-old patient being seen by the wound care center on 3 for multiple open ulcerations. Patient has a unstable pressure ulcer to the left calcaneus measuring approximately 2 x 2 by 0.1 cm with a eschar In place. No granulation seen. The wound edges are attached to the wound base. Wound shows maceration and erythema. The right calcaneus is a stage II pressure ulcer with serous drainage measuring approximately 1 x 2 x 0.2 width eschar and slough noted maceration seen to the periwound. Wound edges are unattached to the wound base. No tunneling or undermining noted. Right lower extremity thigh area has a open ulceration with fat layer exposure with significant slough noted within the wound bed measuring approximately 0.4 x 0.6 x 0.1 cm. The wound edges are attached to the wound base no tunneling or undermining noted. Left dorsal foot ulceration with fatty layer exposure measures approximately 1 x 7 x 5 x 0.2 cm with eschar present. Minimal to no granulation noted within the wound bed. Wound edges are attached to the wound base. Left medial ankle ulceration is sutured with eschar noted, left ankle lateral ulceration is sutured with eschar present. Multiple open incisions to the upper portion of the left lower extremity medial aspect with serous drainage noted eschar and minimal to no granulation seen. Incisions are dehisced. Left great ulceration shows fat layer exposure with minimal movement to no granulation noted significant amount of slough seen. Coccyx ulceration measures approximately 1 x 1 x 0.1 cm. It is Limited to skin breakdown. Periwound shows maceration and excoriation. Patient states that the ulcerations have been there for a short. He time she does not know when they started. She lives with her sister who helps her. Patient did suffer a fracture of the left lower extremity resulting in multiple surgery. Review Of Systems: Constitutional: No fever, no chills, no night sweats. No weight change. No weakness, fatigue or lethargy. No daytime sleepiness. Integumentary:reports wounds, no lesions. No rash or pruritus. No unusual bruising. No change in hair or nails. Physical exam: General Appearance: Alert, cooperative, no distress, appears stated age. Skin: See HPI all other Skin color, texture, tugor normal, no rashes or lesions. Neurologic: Alert oriented x3 Assessment: 1. Left Calcaneus ulceration unstageable pressure ulcer 2. Right calcaneus ulceration stage II pressure ulcer 3. Multiple nonhealing ulcerations to the left lower extremity with fat layer exposure 4. Nonhealing ulceration to right lower extremity thigh 5. Nonhealing ulceration to left groin with fat layer exposure 6. Pressure ulcer stage II coccyx Plan: 1. darren. feet and below knee ulcers: Apply santyl, saline moist gauze, dry gauze, rolled gauze and secure with paper tape. Upper darren leg ulcers: Apply Santyl, saline moist gauze and border foam. Sacrum: Apply Sanytl, saline moist gauze and sacral border foam. 2. Patient would benefit from advanced wound care and wound care center. Patient is agreeable to be seen in the wound care center. We will be happy to see her upon discharge. Thank you for the consultaltion any questions please contact the wound care center. Impression and plan of care have been directed as dictated by the signing physician. Tracey Stevenson nurse practitioner acting as scribe for signing physician. Past Medical History Past Medical History: Diabetes Mellitus, Hyperlipidemia, Hypertension, Myocardial Infarction ([place]), Vascular Disorder Additional Past Medical History / Comment(s): DM type 2. Last Myocardial Infarction Date:: 1989 History of Any Multi-Drug Resistant Organisms: None Reported Past Surgical History: No Surgical Hx Reported Additional Past Surgical History / Comment(s): "Female surgery to help with .". vascular surgery to right leg Past Anesthesia/Blood Transfusion Reactions: No Reported Reaction Past Psychological History: No Psychological Hx Reported Smoking Status: Former smoker Past Alcohol Use History: None Reported, Rare Additional Past Alcohol Use History / Comment(s): Quit smoking 28 yrs ago. Past Drug Use History: None Reported Additional Drug Use History / Comment(s): "Pot once in a great while". - Past Family History Mother Family Medical History: No Reported History Medications and Allergies Home Medications Medication Instructions Recorded Confirmed Type Aspirin 81 mg PO DAILY 07/16/21 08/22/21 History Ergocalciferol [Vitamin D2 (1250 1,250 mcg PO TU 07/16/21 08/22/21 History Mcg = 45113 Iu)] Magnesium Oxide [Magox 400] 400 mg PO HS 07/16/21 08/22/21 History metFORMIN HCL [Glucophage] 500 mg PO BID 07/16/21 08/22/21 History Vancomycin HCl in 5 % Dextrose 1 gm IV Q16H #30 each 07/24/21 08/22/21 Rx [Vancomycin 1 Gram/250 ml-D5w] Acetaminophen [Tylenol] 650 mg PO Q6H PRN 07/26/21 08/22/21 History Linagliptin [Tradjenta] 5 mg PO DAILY 07/26/21 08/22/21 History Tamsulosin [Flomax] 0.4 mg PO DAILY 07/26/21 08/22/21 History amLODIPine BESYLATE 10 mg PO HS 07/26/21 08/22/21 History cefTRIAXone SODIUM 2 gm IV Q24H 07/26/21 08/22/21 History HYDROcodone/APAP 5-325MG [[place] 1 tab PO Q6HR PRN #9 tab 07/31/21 08/22/21 Rx 5-325] Atorvastatin [Lipitor] 20 mg PO HS@199908/15/21 08/22/21 History Clopidogrel [Plavix] 75 mg PO HS@199908/15/21 08/22/21 History Docusate [Colace] 100 mg PO DAILY PRN 08/15/21 08/22/21 History Melatonin 5 mg PO HS@199908/15/21 08/22/21 History Multivitamins, Thera [Multivitamin 1 tab PO DAILY 08/15/21 08/22/21 History (formulary)] Promethazine HCl 12.5 mg PO Q8H PRN 08/15/21 08/22/21 History Ferrous Sulfate [Feosol] 325 mg PO HS@199908/22/21 08/22/21 History Allergies Allergy/AdvReac Type Severity Reaction Status Date / Time codeine AdvReac Itching Verified 08/22/21 07:43 Physical Exam Vitals: Vital Signs Temp Pulse Resp BP Pulse Ox 08/23/21 08:00 96.7 F L 77 18 106/56 91 L 08/23/21 04:00 98.1 F 80 18 133/75 94 L 08/23/21 02:00 80 18 08/23/21 00:00 80 18 124/70 93 L 08/22/21 20:00 98.2 F 84 18 118/75 94 L 08/22/21 16:00 98.8 F 89 18 116/70 94 L 08/22/21 14:00 18 08/22/21 12:00 98.2 F 87 18 123/72 93 L Intake and Output 08/22/21 08/23/21 08/23/21 22:59 06:59 14:59 Intake Total 720 480 118 Balance 720 480 118 Intake: Oral 720 480 118 Other: Voiding Method Diaper Diaper Diaper # Voids 2 2 Results CBC & Chem 7: 08/23/21 07:14 08/23/21 07:14 Labs: Abnormal Lab Results - Last 24 Hours (Table) 08/22/21 08/22/21 08/22/21 Range/Units 11:51 15:30 16:26 RBC 2.79 L (3.80-5.40) m/uL Hgb 7.6 L (11.4-16.0) gm/dL Hct 24.6 L (34.0-46.0) % MCHC 30.9 L (31.0-37.0) g/dL RDW 16.1 H (11.5-15.5) % Sodium (137-145) mmol/L BUN (7-17) mg/dL Creatinine (0.52-1.04) mg/dL Glucose (74-99) mg/dL POC Glucose (mg/dL) 110 H 134 H (75-99) mg/dL Calcium (8.4-10.2) mg/dL Troponin I (0.000-0.034) ng/mL C-Reactive Protein (<1.0) mg/dL Total Protein (6.3-8.2) g/dL Albumin (3.5-5.0) g/dL 08/22/21 08/23/21 08/23/21 Range/Units 20:14 06:14 07:14 RBC 2.70 L (3.80-5.40) m/uL Hgb 7.8 L (11.4-16.0) gm/dL Hct 24.5 L (34.0-46.0) % MCHC (31.0-37.0) g/dL RDW (11.5-15.5) % Sodium (137-145) mmol/L BUN (7-17) mg/dL Creatinine (0.52-1.04) mg/dL Glucose (74-99) mg/dL POC Glucose (mg/dL) 124 H 116 H (75-99) mg/dL Calcium (8.4-10.2) mg/dL Troponin I (0.000-0.034) ng/mL C-Reactive Protein (<1.0) mg/dL Total Protein (6.3-8.2) g/dL Albumin (3.5-5.0) g/dL 08/23/21 08/23/21 Range/Units 07:14 07:14 RBC (3.80-5.40) m/uL Hgb (11.4-16.0) gm/dL Hct (34.0-46.0) % MCHC (31.0-37.0) g/dL RDW (11.5-15.5) % Sodium 132 L (137-145) mmol/L BUN 32 H (7-17) mg/dL Creatinine 1.94 H (0.52-1.04) mg/dL Glucose 103 H (74-99) mg/dL POC Glucose (mg/dL) (75-99) mg/dL Calcium 7.8 L (8.4-10.2) mg/dL Troponin I 0.114 H* (0.000-0.034) ng/mL C-Reactive Protein 4.5 H (<1.0) mg/dL Total Protein 5.3 L (6.3-8.2) g/dL Albumin 2.3 L (3.5-5.0) g/dL Assessment and Plan (1) Pressure ulcer of left heel, unstageable Current Visit: Yes Status: Acute Code(s): L89.620 - PRESSURE ULCER OF LEFT HEEL, UNSTAGEABLE SNOMED Code(s): 534128999 (2) Pressure ulcer of right heel Current Visit: Yes Status: Acute Code(s): L89.619 - PRESSURE ULCER OF RIGHT HEEL, UNSPECIFIED STAGE SNOMED Code(s): 901559850 (3) Pressure ulcer of sacral region, stage 2 Current Visit: Yes Status: Acute Code(s): L89.152 - PRESSURE ULCER OF SACRAL REGION, STAGE 2 SNOMED Code(s): 870718856 (4) Non-pressure chronic ulcer of left ankle with fat layer exposed Current Visit: Yes Status: Acute Code(s): L97.322 - NON-PRESSURE CHRONIC ULCER OF LEFT ANKLE W FAT LAYER EXPOSED SNOMED Code(s): 02688954223299604 (5) Non-pressure chronic ulcer of left thigh with fat layer exposed Current Visit: Yes Status: Acute Code(s): L97.122 - NON-PRESSURE CHRONIC ULCER OF LEFT THIGH W FAT LAYER EXPOSED SNOMED Code(s): 398438099 (6) Non-pressure chronic ulcer of other part of left foot with fat layer exposed Current Visit: No Status: Acute Code(s): L97.522 - NON-PRS CHRONIC ULCER OTH PRT LEFT FOOT W FAT LAYER EXPOSED SNOMED Code(s): 045458521
[2021-08-23 12:11] LABS: Erythrocyte Sedimentation Rate 24 mm/hr (0-20)
[2021-08-23 12:22] LABS: Glucose,Whole Blood 133 mg/dL (75-99)
--- NOTE | 2021-08-23 15:53 | P.PN ---
Subjective Progress Note Date: 08/23/21 Principal diagnosis: Left groin and lower extremity wounds Patient is a 77-year-old female with a past medical history significant for left ankle fracture status post a subsequently wound dehiscence requiring debridement culture were negative for the patient did have a left lower extremity revascularization no admitted to the hospital with anemia and some drainage from the wounds. On today's evaluation that is 08/23/2021, the patient denies having any fever or any chills, the patient is breathing comfortably on room air denies any chest pain shortness of breath or cough no abdominal pain. Pain to the Lower extremity is currently controlled Objective - Vital Signs Vital signs: Vital Signs Temp 98.3 F 08/23/21 11:59 Pulse 81 08/23/21 11:59 Resp 16 08/23/21 11:59 BP 121/64 08/23/21 11:59 Pulse Ox 93 L 08/23/21 11:59 Intake & Output 08/22/21 08/23/21 08/23/21 18:59 06:59 18:59 Intake Total 1050 960 238 Balance 1050 960 238 Intake: Oral 740 960 238 Blood Product 310 Rc As-1 Unit 310 [id number] Other: Voiding Method Diaper Diaper Diaper # Voids 1 2 3 - Exam GENERAL DESCRIPTION: An elderly female lying in bed in no distress RESPIRATORY SYSTEM: Unlabored breathing , decreased breath sounds at bases HEART: S1 S2 regular rate and rhythm , ABDOMEN: Soft , no tenderness EXTREMITIES: Lower extremity wounds are currently dressed - Labs CBC & Chem 7: 08/23/21 07:14 08/23/21 07:14 Labs: Abnormal Lab Results - Last 24 Hours (Table) 08/22/21 08/22/21 08/22/21 Range/Units 15:30 16:26 20:14 RBC 2.79 L (3.80-5.40) m/uL Hgb 7.6 L (11.4-16.0) gm/dL Hct 24.6 L (34.0-46.0) % MCHC 30.9 L (31.0-37.0) g/dL RDW 16.1 H (11.5-15.5) % ESR (0-20) mm/hr Sodium (137-145) mmol/L BUN (7-17) mg/dL Creatinine (0.52-1.04) mg/dL Glucose (74-99) mg/dL POC Glucose (mg/dL) 134 H 124 H (75-99) mg/dL Calcium (8.4-10.2) mg/dL Troponin I (0.000-0.034) ng/mL C-Reactive Protein (<1.0) mg/dL Total Protein (6.3-8.2) g/dL Albumin (3.5-5.0) g/dL 08/23/21 08/23/21 08/23/21 Range/Units 06:14 07:14 07:14 RBC 2.70 L (3.80-5.40) m/uL Hgb 7.8 L (11.4-16.0) gm/dL Hct 24.5 L (34.0-46.0) % MCHC (31.0-37.0) g/dL RDW (11.5-15.5) % ESR 24 H (0-20) mm/hr Sodium 132 L (137-145) mmol/L BUN 32 H (7-17) mg/dL Creatinine 1.94 H (0.52-1.04) mg/dL Glucose 103 H (74-99) mg/dL POC Glucose (mg/dL) 116 H (75-99) mg/dL Calcium 7.8 L (8.4-10.2) mg/dL Troponin I (0.000-0.034) ng/mL C-Reactive Protein 4.5 H (<1.0) mg/dL Total Protein 5.3 L (6.3-8.2) g/dL Albumin 2.3 L (3.5-5.0) g/dL 08/23/21 08/23/21 Range/Units 07:14 12:20 RBC (3.80-5.40) m/uL Hgb (11.4-16.0) gm/dL Hct (34.0-46.0) % MCHC (31.0-37.0) g/dL RDW (11.5-15.5) % ESR (0-20) mm/hr Sodium (137-145) mmol/L BUN (7-17) mg/dL Creatinine (0.52-1.04) mg/dL Glucose (74-99) mg/dL POC Glucose (mg/dL) 133 H (75-99) mg/dL Calcium (8.4-10.2) mg/dL Troponin I 0.114 H* (0.000-0.034) ng/mL C-Reactive Protein (<1.0) mg/dL Total Protein (6.3-8.2) g/dL Albumin (3.5-5.0) g/dL Assessment and Plan (1) Non-pressure chronic ulcer of other part of left foot with fat layer exposed Current Visit: No Status: Acute Code(s): L97.522 - NON-PRS CHRONIC ULCER OTH PRT LEFT FOOT W FAT LAYER EXPOSED SNOMED Code(s): 956380917 (2) Non-pressure ulcer of left lower extremity with fat layer exposed Current Visit: No Status: Acute Code(s): L97.922 - NON-PRS CHR ULC UNSP PRT OF L LOW LEG W FAT LAYER EXPOSED SNOMED Code(s): 55074765 (3) Postoperative wound dehiscence Current Visit: No Status: Acute Code(s): T81.31XA - DISRUPTION OF EXTERNAL OPERATION (SURGICAL) WOUND, NEC, INIT SNOMED Code(s): 993208255 Plan: 1patient with a nonhealing wound to the left groin with some slough tissue but no definite cellulitis recommend local wound care with the Santyl followed by moist dressing change daily. 2patient with left thigh and leg wound with no slough tissue or surrounding redness local wound care with a dry Aquacel silver dressing. 3patient with stage II pressure ulcer of the left heel area with no surrounding cellulitis local wound care with the dry Aquacel silver dressing daily of the pressure. 4patient with a stage I pressure ulcer to the right heel area with no open wound or any cellulitis recommend local care by keeping the area of the pressure no need for any dressing or creams. 5no need for further antibiotic therapy at this point
[2021-08-23 16:44] LABS: Glucose,Whole Blood 125 mg/dL (75-99)
--- NOTE | 2021-08-23 18:00 | P.CONS ---
History of Present Illness - Reason for Consult Consult date: 08/23/21 anemia - History of Present Illness the patient is 70-year-old white female with multiple medical problems and fairly significant recent past medical and surgical history. The patient had fallen and fractured her left ankle in late 05/28. This did not respond to operative management and she was admitted for elective ORIF in early 07/30. Post surgery she developed wound dehiscence. She was treated with debridement and antibiotics but did not respond optimally. He was therefore evaluated by vascular surgery and was found to have significant peripheral vascular occlusive disease in the distal SFA, not amenable to percutaneous vascularization. She was then discharged and readmitted electively for femoropopliteal bypass done in late 07/30. She continued on antibiotics with a nonhealing wound. Post surgery she was discharged to rehabilitation on aspirin and Plavix. The patient was readmitted with hemoglobin of 4.7. Her hemoglobin in late 05/28 had been normal. It had shown a decline through her hospitalizations in 07/30 and was 8.1 at the time of her discharge. Patient denied any obvious bleeding. No history of any black stools. She denied any prior history of blood related problems of malignancy. She has never had a colonoscopy or endoscopy. She stated that she was to be heavy alcohol user in her 20s an early 30s,but denies any significant alcohol use since then. Review of Systems Constitutional: Reports fatigue, Reports weakness Eyes: denies blurred vision, denies pain Ears: deny: decreased hearing, ear discharge, earache, tinnitus Ears, nose, mouth and throat: Denies headache, Denies sore throat Cardiovascular: Reports as per HPI, Reports claudication, Reports dyspnea on exertion Respiratory: Reports dyspnea Gastrointestinal: Denies abdominal pain, Denies diarrhea, Denies nausea, Denies vomiting Genitourinary: Denies dysuria, Denies hematuria Menstruation: Reports postmenopausal Musculoskeletal: Reports as per HPI, Reports fractures, Reports limitation of motion, Reports muscle weakness Musculoskeletal: left: ankle pain, ankle stiffness Integumentary: Reports as per HPI, Reports wounds Neurological: Reports weakness Psychiatric: Denies anxiety, Denies depression Endocrine: Reports fatigue (because of the lateral invasive) Hematologic/Lymphatic: Reports as per HPI Past Medical History Past Medical History: Diabetes Mellitus, Hyperlipidemia, Hypertension, Myocardial Infarction ([place]), Vascular Disorder Additional Past Medical History / Comment(s): DM type 2. Last Myocardial Infarction Date:: 1989 History of Any Multi-Drug Resistant Organisms: None Reported Past Surgical History: No Surgical Hx Reported Additional Past Surgical History / Comment(s): "Female surgery to help with pr egnancy.". vascular surgery to right leg Past Anesthesia/Blood Transfusion Reactions: No Reported Reaction Past Psychological History: No Psychological Hx Reported Smoking Status: Former smoker Past Alcohol Use History: None Reported, Rare Additional Past Alcohol Use History / Comment(s): Quit smoking 28 yrs ago. Past Drug Use History: None Reported Additional Drug Use History / Comment(s): "Pot once in a great while". - Past Family History Mother Family Medical History: No Reported History Medications and Allergies Home Medications Medication Instructions Recorded Confirmed Type Aspirin 81 mg PO DAILY 07/16/21 08/22/21 History Ergocalciferol [Vitamin D2 (1250 1,250 mcg PO TU 07/16/21 08/22/21 History Mcg = 42763 Iu)] Magnesium Oxide [Magox 400] 400 mg PO HS 07/16/21 08/22/21 History metFORMIN HCL [Glucophage] 500 mg PO BID 07/16/21 08/22/21 History Vancomycin HCl in 5 % Dextrose 1 gm IV Q16H #30 each 07/24/21 08/22/21 Rx [Vancomycin 1 Gram/250 ml-D5w] Acetaminophen [Tylenol] 650 mg PO Q6H PRN 07/26/21 08/22/21 History Linagliptin [Tradjenta] 5 mg PO DAILY 07/26/21 08/22/21 History Tamsulosin [Flomax] 0.4 mg PO DAILY 07/26/21 08/22/21 History amLODIPine BESYLATE 10 mg PO HS 07/26/21 08/22/21 History cefTRIAXone SODIUM 2 gm IV Q24H 07/26/21 08/22/21 History HYDROcodone/APAP 5-325MG [[place] 1 tab PO Q6HR PRN #9 tab 07/31/21 08/22/21 Rx 5-325] Atorvastatin [Lipitor] 20 mg PO HS@199908/15/21 08/22/21 History Clopidogrel [Plavix] 75 mg PO HS@199908/15/21 08/22/21 History Docusate [Colace] 100 mg PO DAILY PRN 08/15/21 08/22/21 History Melatonin 5 mg PO HS@199908/15/21 08/22/21 History Multivitamins, Thera [Multivitamin 1 tab PO DAILY 08/15/21 08/22/21 History (formulary)] Promethazine HCl 12.5 mg PO Q8H PRN 08/15/21 08/22/21 History Ferrous Sulfate [Feosol] 325 mg PO HS@199908/22/21 08/22/21 History Allergies Allergy/AdvReac Type Severity Reaction Status Date / Time codeine AdvReac Itching Verified 08/22/21 07:43 Physical Exam Vitals: Vital Signs Temp Pulse Resp BP Pulse Ox 08/23/21 16:00 97.9 F 82 18 112/67 97 08/23/21 11:59 98.3 F 81 16 121/64 93 L 08/23/21 08:00 96.7 F L 77 18 106/56 91 L 08/23/21 04:00 98.1 F 80 18 133/75 94 L 08/23/21 02:00 80 18 08/23/21 00:00 80 18 124/70 93 L 08/22/21 20:00 98.2 F 84 18 118/75 94 L Intake and Output 08/23/21 08/23/21 08/23/21 06:59 14:59 22:59 Intake Total 480 238 Output Total 800 Balance 480 238 -800 Intake: Oral 480 238 Output: Urine 800 Straight 800 Other: Voiding Method Diaper Diaper Diaper # Voids 2 3 - Constitutional General appearance: no acute distress - EENT Eyes: EOMI, PERRLA ENT: hearing grossly normal, normal oropharynx - Neck Neck: no lymphadenopathy Thyroid: bilateral: normal size - Respiratory Respiratory: bilateral: CTA - Cardiovascular Rhythm: regular Heart sounds: normal: S1, S2 - Gastrointestinal General gastrointestinal: normal bowel sounds, soft - Integumentary Integumentary: normal - Neurologic Neurologic: CNII-XII intact - Musculoskeletal Musculoskeletal: generalized weakness, strength equal bilaterally - Psychiatric Psychiatric: A&O x's 3, appropriate affect Results CBC & Chem 7: 08/23/21 07:14 08/23/21 07:14 Labs: Abnormal Lab Results - Last 24 Hours (Table) 08/22/21 08/23/21 08/23/21 Range/Units 20:14 06:14 07:14 RBC (3.80-5.40) m/uL Hgb (11.4-16.0) gm/dL Hct (34.0-46.0) % ESR (0-20) mm/hr Sodium (137-145) mmol/L BUN (7-17) mg/dL Creatinine (0.52-1.04) mg/dL Glucose (74-99) mg/dL POC Glucose (mg/dL) 124 H 116 H (75-99) mg/dL Calcium (8.4-10.2) mg/dL Troponin I (0.000-0.034) ng/mL C-Reactive Protein (<1.0) mg/dL Total Protein (6.3-8.2) g/dL Albumin (3.5-5.0) g/dL Procalcitonin 0.18 H (0.02-0.09) ng/mL 08/23/21 08/23/21 08/23/21 Range/Units 07:14 07:14 07:14 RBC 2.70 L (3.80-5.40) m/uL Hgb 7.8 L (11.4-16.0) gm/dL Hct 24.5 L (34.0-46.0) % ESR 24 H (0-20) mm/hr Sodium 132 L (137-145) mmol/L BUN 32 H (7-17) mg/dL Creatinine 1.94 H (0.52-1.04) mg/dL Glucose 103 H (74-99) mg/dL POC Glucose (mg/dL) (75-99) mg/dL Calcium 7.8 L (8.4-10.2) mg/dL Troponin I 0.114 H* (0.000-0.034) ng/mL C-Reactive Protein 4.5 H (<1.0) mg/dL Total Protein 5.3 L (6.3-8.2) g/dL Albumin 2.3 L (3.5-5.0) g/dL Procalcitonin (0.02-0.09) ng/mL 08/23/21 08/23/21 Range/Units 12:20 16:42 RBC (3.80-5.40) m/uL Hgb (11.4-16.0) gm/dL Hct (34.0-46.0) % ESR (0-20) mm/hr Sodium (137-145) mmol/L BUN (7-17) mg/dL Creatinine (0.52-1.04) mg/dL Glucose (74-99) mg/dL POC Glucose (mg/dL) 133 H 125 H (75-99) mg/dL Calcium (8.4-10.2) mg/dL Troponin I (0.000-0.034) ng/mL C-Reactive Protein (<1.0) mg/dL Total Protein (6.3-8.2) g/dL Albumin (3.5-5.0) g/dL Procalcitonin (0.02-0.09) ng/mL Comments: ankle X ray report reviewed Operative/procedure notes reviewed CT scan - abdomen: report reviewed Assessment and Plan (1) Anemia Narrative/Plan: this is presumably a new finding for this patient. As noted hemoglobin was normal in late 05/28. There has been a persistent drop since her admission in early 07/10 2. - Patient's physical exam is unrevealing. Given the rapid development and degree of change in hemoglobin, blood loss would be the primary differential. Recent surgery, postsurgical inflammation as well as inflammation related to her wound could also be contributing. - Agree with transfusion to keep hemoglobin in a safe range, greater than 6.5. - Monitor hemoglobin - Additional labs will be ordered including testing for deficiency state, and hemolysis. If workup indicates blood loss anemia, then GI workup will be recommended. Current Visit: Yes Status: Acute Code(s): D64.9 - ANEMIA, UNSPECIFIED SNOMED Code(s): 987982500 (2) Acute renal insufficiency Narrative/Plan: this could also be a contributing factor. However it is unlikely to be the main etiology, as the patient's hemoglobin was declining during a previous admission even though her creatinine had remained stable. Current Visit: Yes Status: Acute Code(s): N28.9 - DISORDER OF KIDNEY AND URETER, UNSPECIFIED SNOMED Code(s): 753193778 Plan: therefore to the admitting service and other consultants for her multiple other medical issues, including left ankle wound and recent postoperative state.
[2021-08-23 21:14] LABS: Glucose,Whole Blood 155 mg/dL (75-99)
[2021-08-23] MEDS: ATORVASTATIN 20 MG TAB PO SCH (22:03)
[2021-08-24] MEDS: SODIUM CHLORIDE 0.9% 1,000 ML IV SCH ×2 (05:10→17:30)
[2021-08-24 06:42] LABS: Glucose,Whole Blood 118 mg/dL (75-99)
[2021-08-24] MEDS: INSULIN ASPART (NovoLOG) 100 UNIT/ML VIAL SQ SCH ×4 (06:43→20:32)
[2021-08-24] MEDS: PANTOPRAZOLE 40 MG TABLET PO SCH (06:44)
[2021-08-24 08:41] VITALS: BMI 25.2
[2021-08-24 08:44] LABS: Basophils % (A) 0 %; Eosinophils # (A) 0.4 k/uL (0-0.7); Eosinophils % (A) 6 %; HCT 25.8 % (34.0-46.0); HGB 8.1 gm/dL (11.4-16.0); Hypochromasia Marked; Lymphocytes # (A) 1.6 k/uL (1.0-4.8); Lymphocytes % (A) 22 %; MCH 28.5 pg (25.0-35.0); MCHC 31.4 g/dL (31.0-37.0); MCV 90.9 fL (80.0-100.0); Mean Platelet Volume 7.3; Monocytes # (A) 0.5 k/uL (0-1.0); Monocytes % (A) 7 %; Neutrophils # (A) 4.5 k/uL (1.3-7.7); Neutrophils % (A) 63 %; Platelet Count 389 k/uL (150-450); Poikilocytosis Slight; RBC 2.84 m/uL (3.80-5.40); RDW 15.6 % (11.5-15.5); WBC 7.1 k/uL (3.8-10.6)
[2021-08-24 08:50] LABS: Potassium 4.3 mmol/L (3.5-5.1)
[2021-08-24] MEDS: TAMSULOSIN 0.4 MG CAP.ER.24H PO SCH (08:52)
[2021-08-24] MEDS: COLLAGENASE 250 UNIT/GM OINTMENT 30 GM TUBE TOPICAL SCH ×2 (09:29→16:39)
[2021-08-24 10:15] LABS: Erythrocyte Sedimentation Rate 28 mm/hr (0-20)
[2021-08-24 11:51] LABS: Immunoglobulin M 83.7 mg/dL (40.0-280.0)
[2021-08-24 11:57] LABS: Glucose,Whole Blood 173 mg/dL (75-99)
[2021-08-24] MEDS: MORPHINE SULFATE 4 MG/ML SYRINGE IV PRN (13:18)
[2021-08-24] MEDS: polyethylene glycoL 3350 17 GM POWD.PACK PO SCH (14:59)
[2021-08-24] MEDS: DOCUSATE 100 MG CAP PO PRN (14:59)
[2021-08-24 16:24] LABS: Glucose,Whole Blood 121 mg/dL (75-99)
[2021-08-24 16:46] LABS: % Iron Saturation 5.13 (12.00-45.00)
[2021-08-24 20:13] LABS: Glucose,Whole Blood 148 mg/dL (75-99)
[2021-08-24] MEDS: ATORVASTATIN 20 MG TAB PO SCH (20:54)
[2021-08-24] MEDS: HYDROcodone/APAP 5-325MG 1 EACH TAB PO PRN (20:54)
--- NOTE | 2021-08-24 23:04 | P.PN ---
Subjective Progress Note Date: 08/24/21 Principal diagnosis: Left groin and lower extremity wounds Patient is a 77-year-old female with a past medical history significant for left ankle fracture status post a subsequently wound dehiscence requiring debridement culture were negative for the patient did have a left lower extremity revascularization no admitted to the hospital with anemia and some drainage from the wounds. On today's evaluation that is 08/24/2021, the patient remains to be afebrile, the patient is breathing comfortably on room air denies any chest pain shortness of breath or cough no abdominal pain. The patient denies any worsening Pain to the Lower extremity wound area had no further drainage Objective - Vital Signs Vital signs: Vital Signs Temp 97.5 F L 08/24/21 12:00 Pulse 83 08/24/21 12:00 Resp 18 08/24/21 12:00 BP 116/58 08/24/21 12:00 Pulse Ox 97 08/24/21 12:00 Intake & Output 08/23/21 08/24/21 08/24/21 18:59 06:59 18:59 Intake Total 238 360 Output Total 800 1300 Balance -562 -940 Weight 75.5 kg 75.5 kg Intake: Oral 238 360 Output: Urine 800 1300 Straight 800 1300 Other: Voiding Method Diaper Diaper Diaper # Voids 3 1 - Exam GENERAL DESCRIPTION: An elderly female lying in bed in no distress RESPIRATORY SYSTEM: Unlabored breathing , decreased breath sounds at bases HEART: S1 S2 regular rate and rhythm , ABDOMEN: Soft , no tenderness EXTREMITIES: Lower extremity wounds are currently dressed - Labs CBC & Chem 7: 08/24/21 07:52 08/24/21 07:52 Labs: Abnormal Lab Results - Last 24 Hours (Table) 08/23/21 08/23/21 08/23/21 Range/Units 07:14 16:42 20:32 RBC (3.80-5.40) m/uL Hgb (11.4-16.0) gm/dL Hct (34.0-46.0) % RDW (11.5-15.5) % ESR (0-20) mm/hr Retic Count (0.5-2.0) % Sodium (137-145) mmol/L BUN (7-17) mg/dL Creatinine (0.52-1.04) mg/dL POC Glucose (mg/dL) 125 H 155 H (75-99) mg/dL Calcium (8.4-10.2) mg/dL Procalcitonin 0.18 H (0.02-0.09) ng/mL 08/24/21 08/24/21 08/24/21 Range/Units 06:37 07:52 07:52 RBC 2.84 L (3.80-5.40) m/uL Hgb 8.1 L (11.4-16.0) gm/dL Hct 25.8 L (34.0-46.0) % RDW 15.6 H (11.5-15.5) % ESR 28 H (0-20) mm/hr Retic Count 8.0 H (0.5-2.0) % Sodium 132 L (137-145) mmol/L BUN 32 H (7-17) mg/dL Creatinine 1.85 H (0.52-1.04) mg/dL POC Glucose (mg/dL) 118 H (75-99) mg/dL Calcium 8.0 L (8.4-10.2) mg/dL Procalcitonin (0.02-0.09) ng/mL 08/24/21 Range/Units 11:56 RBC (3.80-5.40) m/uL Hgb (11.4-16.0) gm/dL Hct (34.0-46.0) % RDW (11.5-15.5) % ESR (0-20) mm/hr Retic Count (0.5-2.0) % Sodium (137-145) mmol/L BUN (7-17) mg/dL Creatinine (0.52-1.04) mg/dL POC Glucose (mg/dL) 173 H (75-99) mg/dL Calcium (8.4-10.2) mg/dL Procalcitonin (0.02-0.09) ng/mL Assessment and Plan (1) Non-pressure chronic ulcer of other part of left foot with fat layer exposed Current Visit: No Status: Acute Code(s): L97.522 - NON-PRS CHRONIC ULCER OTH PRT LEFT FOOT W FAT LAYER EXPOSED SNOMED Code(s): 071032252 (2) Non-pressure ulcer of left lower extremity with fat layer exposed Current Visit: No Status: Acute Code(s): L97.922 - NON-PRS CHR ULC UNSP PRT OF L LOW LEG W FAT LAYER EXPOSED SNOMED Code(s): 90126696 (3) Postoperative wound dehiscence Current Visit: No Status: Acute Code(s): T81.31XA - DISRUPTION OF EXTERNAL OPERATION (SURGICAL) WOUND, NEC, INIT SNOMED Code(s): 864523551 Plan: 1patient with a nonhealing wound to the left groin with some slough tissue but no definite cellulitis to continue local wound care with the Santyl followed by moist dressing change daily. 2patient with left thigh and leg wound with no slough tissue or surrounding redness to continue local wound care with a dry Aquacel silver dressing. 3patient with stage II pressure ulcer of the left heel area with no surrounding cellulitis to continue local wound care with the dry Aquacel silver dressing daily of the pressure. 4patient with a stage I pressure ulcer to the right heel area with no open wound or any cellulitis to continue local care by keeping the area of the pressure no need for any dressing or creams. Family the bedside questions concerned were answered
--- NOTE | 2021-08-25 00:20 | P.PN ---
Subjective Progress Note Date: 08/23/21 Patient is a 70-year-old female with a known history of hypertension, hyperlipidemia, peripheral vascular disease status post left femoropopliteal in situ vein bypass with a left common femoral artery thromboendarterectomy with patch angioplasty on 07/29/2021, nonhealing left ankle fracture wound and previ ous history of smoking was sent to hospital from the rehab due to low hemoglobin level. Otherwise denied any hematemesis melena. No cough or sputum production. No chest pain or shortness of. No complaints of abdominal pain. Patient is also feeling weak and lethargic. On admission hemoglobin found to be 4.7 and patient was given 1 unit of PRBC. Repeat hemoglobin this morning showed at 7.5. No active bleeding at the left ankle surgical site noted. Other laboratory showed WBC 9.5 hemoglobin 4.7 platelets 411 MCV 87.8 Sodium 133 potassium 4.2 chloride 104 bicarb is 22 BUN 31 and creatinine 2.05 Previous creatinine level 0.93 about a week ago. Calcium 8.1 liver enzymes are not elevated and troponin is 0.140 and albumin 2.5. 08/23/2021 Patient is currently resting in the bed. Awake alert and oriented x3. No complaints of chest pain or shortness of. Tolerating oral diet. Otherwise armando sow did not have any bowel movement lower the last few days. Denied any complaints of lower extremity pain. Laboratory data showed hemoglobin 7.8 and platelets 341 sodium 132 potassium 4.4 chloride 105 BUN 3020 creatinine improved to 1.94. Patient is being continued on IV hydration with normal saline. Troponin trending down to 0.114. No complaints of chest pain or shortness breath. No headache or dizziness or lightheadedness. Procalcitonin 0.18 and CRP levels 4.5. ID has seen the patient and continue with local wound care and moist dressing change daily. No further antibiotic therapy recommended. Hematology was consulted and anemia and hemolysis work-up was ordered. Current medications reviewed. Objective - Vital Signs Vital signs: Vital Signs Temp 97.9 F 08/23/21 16:00 Pulse 82 08/23/21 16:00 Resp 18 08/23/21 16:00 BP 112/67 08/23/21 16:00 Pulse Ox 97 08/23/21 16:00 Intake & Output 08/23/21 08/23/21 08/24/21 06:59 18:59 06:59 Intake Total 960 238 Output Total 800 Balance 960 -562 Intake: Oral 960 238 Output: Urine 800 Straight 800 Other: Voiding Method Diaper Diaper # Voids 2 3 - Exam PHYSICAL EXAMINATION: Patient is lying in the bed comfortably, no acute distress, awake alert and oriented.. Lethargic and drowsy. HEENT: Normocephalic. Neck is supple. Pupils reactive. Nostrils clear. Oral cavity is moist. Neck reveals no JVD, carotid bruits, or thyromegaly. CHEST EXAMINATION: Trachea is central. Symmetrical expansion. Bibasilar diminished sounds, lung iniguez clear to auscultation and percussion. CARDIAC: Normal S1, S2 with no gallops. No murmurs ABDOMEN: Soft. Bowel sounds normal. No organomegaly. No abdominal bruits. Extremities: reveal no edema. No clubbing or cyanosis Neurologically awake, alert, oriented x3 with well-coordinated movements. No focal deficits noted Skin: No rash or skin lesions. Psychiatric: Cooperative. Nonsuicidal Musculoskeletal: No joint swelling or deformity. Normal range of motion. Left ankle surgical site is bandaged. - Labs CBC & Chem 7: 08/24/21 07:52 08/24/21 07:52 Labs: Abnormal Lab Results - Last 24 Hours (Table) 08/23/21 08/23/21 08/23/21 Range/Units 06:14 07:14 07:14 RBC 2.70 L (3.80-5.40) m/uL Hgb 7.8 L (11.4-16.0) gm/dL Hct 24.5 L (34.0-46.0) % ESR 24 H (0-20) mm/hr Sodium (137-145) mmol/L BUN (7-17) mg/dL Creatinine (0.52-1.04) mg/dL Glucose (74-99) mg/dL POC Glucose (mg/dL) 116 H (75-99) mg/dL Calcium (8.4-10.2) mg/dL Troponin I (0.000-0.034) ng/mL C-Reactive Protein (<1.0) mg/dL Total Protein (6.3-8.2) g/dL Albumin (3.5-5.0) g/dL Procalcitonin 0.18 H (0.02-0.09) ng/mL 08/23/21 08/23/21 08/23/21 Range/Units 07:14 07:14 12:20 RBC (3.80-5.40) m/uL Hgb (11.4-16.0) gm/dL Hct (34.0-46.0) % ESR (0-20) mm/hr Sodium 132 L (137-145) mmol/L BUN 32 H (7-17) mg/dL Creatinine 1.94 H (0.52-1.04) mg/dL Glucose 103 H (74-99) mg/dL POC Glucose (mg/dL) 133 H (75-99) mg/dL Calcium 7.8 L (8.4-10.2) mg/dL Troponin I 0.114 H* (0.000-0.034) ng/mL C-Reactive Protein 4.5 H (<1.0) mg/dL Total Protein 5.3 L (6.3-8.2) g/dL Albumin 2.3 L (3.5-5.0) g/dL Procalcitonin (0.02-0.09) ng/mL 08/23/21 08/23/21 Range/Units 16:42 20:32 RBC (3.80-5.40) m/uL Hgb (11.4-16.0) gm/dL Hct (34.0-46.0) % ESR (0-20) mm/hr Sodium (137-145) mmol/L BUN (7-17) mg/dL Creatinine (0.52-1.04) mg/dL Glucose (74-99) mg/dL POC Glucose (mg/dL) 125 H 155 H (75-99) mg/dL Calcium (8.4-10.2) mg/dL Troponin I (0.000-0.034) ng/mL C-Reactive Protein (<1.0) mg/dL Total Protein (6.3-8.2) g/dL Albumin (3.5-5.0) g/dL Procalcitonin (0.02-0.09) ng/mL Assessment and Plan Assessment: Symptomatic anemia with hemoglobin 4.7 on admission. s/p PRBC transfusion. hb 7.8 Acute kidney injury likely prerenal. possible AIN with pt being on vancomycin Elevated troponin. likely demand ischemia. Hypovolemic hyponatremia Nonhealing left ankle ulcer stage 2. No active bleeding noted. Status post left femoropopliteal in situ vein graft, left, femoral artery thromboendarterectomy with patch angioplasty on 07/29/2021. Hypertension Hyperlipidemia Diabetes type 2 [id number] History of [place] Previous history of smoking Plan: Patient was posses with 1 unit of PRBC on admission and hemoglobin improved to 7.5--7.8 today. Continue to monitor H&H. No active bleeding noted. Patient denied any hematemesis or melena. Patient was seen by hematology. Anemia and hemolysis work-up was ordered. Continue with stool softeners for constipation.. Continue with IV hydration and monitor renal function. Hold blood pressure medications and continue with insulin sliding scale. Chronic pain management. Vascular surgery was consulted for evaluation of surgical wound. Continue to follow closely. Time with Patient: Greater than 30
[2021-08-25] MEDS ORDERED: bisacodyL 10 MG SUPP RECTAL PRN (00:23)
--- NOTE | 2021-08-25 00:23 | P.PN ---
Subjective Progress Note Date: 08/24/21 Patient is a 70-year-old female with a known history of hypertension, hyperlipidemia, peripheral vascular disease status post left femoropopliteal in situ vein bypass with a left common femoral artery thromboendarterectomy with patch angioplasty on 07/29/2021, nonhealing left ankle fracture wound and previ ous history of smoking was sent to hospital from the rehab due to low hemoglobin level. Otherwise denied any hematemesis melena. No cough or sputum production. No chest pain or shortness of. No complaints of abdominal pain. Patient is also feeling weak and lethargic. On admission hemoglobin found to be 4.7 and patient was given 1 unit of PRBC. Repeat hemoglobin this morning showed at 7.5. No active bleeding at the left ankle surgical site noted. Other laboratory showed WBC 9.5 hemoglobin 4.7 platelets 411 MCV 87.8 Sodium 133 potassium 4.2 chloride 104 bicarb is 22 BUN 31 and creatinine 2.05 Previous creatinine level 0.93 about a week ago. Calcium 8.1 liver enzymes are not elevated and troponin is 0.140 and albumin 2.5. 08/23/2021 Patient is currently resting in the bed. Awake alert and oriented x3. No complaints of chest pain or shortness of. Tolerating oral diet. Otherwise armando sow did not have any bowel movement lower the last few days. Denied any complaints of lower extremity pain. Laboratory data showed hemoglobin 7.8 and platelets 341 sodium 132 potassium 4.4 chloride 105 BUN 3020 creatinine improved to 1.94. Patient is being continued on IV hydration with normal saline. Troponin trending down to 0.114. No complaints of chest pain or shortness breath. No headache or dizziness or lightheadedness. Procalcitonin 0.18 and CRP levels 4.5. ID has seen the patient and continue with local wound care and moist dressing change daily. No further antibiotic therapy recommended. Hematology was consulted and anemia and hemolysis work-up was ordered. 08/24/2021 Patient is currently resting alert. Recollecting when x3. Denied any complaints of chest pain or shortness of breath. No headache or dizziness or lightheadedness. Leg pain is improved. No active bleeding noted. Otherwise patient is having constipation and is being continued softeners and laxatives. Patient has been afebrile. Lab data showed WBC 7.1 hemoglobin improved to 8.1 platelets 389 sodium 132, potassium 4.3 chloride 103 BUN 3020 creatinine 1.82 Calcium 8.0. Patient is iron deficient. Current medications reviewed. Objective - Vital Signs Vital signs: Vital Signs Temp 98.3 F 08/24/21 20:00 Pulse 84 08/24/21 20:00 Resp 18 08/24/21 20:00 BP 123/67 08/24/21 20:00 Pulse Ox 95 08/24/21 20:00 Intake & Output 08/24/21 08/24/21 08/25/21 06:59 18:59 06:59 Intake Total 470 Output Total 1500 0 Balance -1030 0 Weight 75.5 kg 75.5 kg Intake: Oral 470 Output: Urine 1500 0 Straight 1400 Other: Voiding Method Diaper Indwelling Catheter Indwelling Catheter # Voids 1 - Exam PHYSICAL EXAMINATION: Patient is lying in the bed comfortably, no acute distress, awake alert and oriented.. Lethargic and drowsy. HEENT: Normocephalic. Neck is supple. Pupils reactive. Nostrils clear. Oral cavity is moist. Neck reveals no JVD, carotid bruits, or thyromegaly. CHEST EXAMINATION: Trachea is central. Symmetrical expansion. Bibasilar diminished sounds, lung iniguez clear to auscultation and percussion. CARDIAC: Normal S1, S2 with no gallops. No murmurs ABDOMEN: Soft. Bowel sounds normal. No organomegaly. No abdominal bruits. Extremities: reveal no edema. No clubbing or cyanosis Neurologically awake, alert, oriented x3 with well-coordinated movements. No focal deficits noted Skin: No rash or skin lesions. Psychiatric: Cooperative. Nonsuicidal Musculoskeletal: No joint swelling or deformity. Normal range of motion. Left ankle surgical site is bandaged. - Labs CBC & Chem 7: 08/24/21 07:52 08/24/21 07:52 Labs: Abnormal Lab Results - Last 24 Hours (Table) 08/24/21 08/24/21 08/24/21 Range/Units 06:37 07:52 07:52 RBC 2.84 L (3.80-5.40) m/uL Hgb 8.1 L (11.4-16.0) gm/dL Hct 25.8 L (34.0-46.0) % RDW 15.6 H (11.5-15.5) % ESR 28 H (0-20) mm/hr Retic Count 8.0 H (0.5-2.0) % Sodium 132 L (137-145) mmol/L BUN 32 H (7-17) mg/dL Creatinine 1.85 H (0.52-1.04) mg/dL POC Glucose (mg/dL) 118 H (75-99) mg/dL Calcium 8.0 L (8.4-10.2) mg/dL Iron 11 L (50-170) ug/dL TIBC 209 L (228-460) ug/dL % Saturation 5.13 L (12.00-45.00) Transferrin 149.0 L (204.0-354.0) mg/dL Vitamin B12 1008.0 H (200.0-944.0) pg/mL 08/24/21 08/24/21 08/24/21 Range/Units 11:56 16:23 20:11 RBC (3.80-5.40) m/uL Hgb (11.4-16.0) gm/dL Hct (34.0-46.0) % RDW (11.5-15.5) % ESR (0-20) mm/hr Retic Count (0.5-2.0) % Sodium (137-145) mmol/L BUN (7-17) mg/dL Creatinine (0.52-1.04) mg/dL POC Glucose (mg/dL) 173 H 121 H 148 H (75-99) mg/dL Calcium (8.4-10.2) mg/dL Iron (50-170) ug/dL TIBC (228-460) ug/dL % Saturation (12.00-45.00) Transferrin (204.0-354.0) mg/dL Vitamin B12 (200.0-944.0) pg/mL Assessment and Plan Assessment: Symptomatic anemia with hemoglobin 4.7 on admission. s/p PRBC transfusion. hb 7.8 Iron deficiency anemia Acute kidney injury likely prerenal. possible AIN with pt being on vancomycin Elevated troponin. likely demand ischemia. Hypovolemic hyponatremia Nonhealing left ankle ulcer stage 2. No active bleeding noted. Status post left femoropopliteal in situ vein graft, left, femoral artery thromboendarterectomy with patch angioplasty on 07/29/2021. Hypertension Hyperlipidemia Diabetes type 2 [id number] History of [place] Previous history of smoking Plan: Patient was posses with 1 unit of PRBC on admission and hemoglobin improved to 7.5--7.8 today. Continue to monitor H&H. No active bleeding noted. Patient denied any hematemesis or melena. Patient was seen by hematology. Anemia and hemolysis work-up was ordered. Continue with stool softeners for constipation.. Continue with IV hydration and monitor renal function. Hold blood pressure medications and continue with insulin sliding scale. Chronic pain management. Vascular surgery was consulted for evaluation of surgical wound. Continue to follow closely. Time with Patient: Greater than 30
[2021-08-25] MEDS: SODIUM CHLORIDE 0.9% 1,000 ML IV SCH ×2 (04:12→17:03)
[2021-08-25 06:07] LABS: Glucose,Whole Blood 122 mg/dL (75-99)
[2021-08-25] MEDS: INSULIN ASPART (NovoLOG) 100 UNIT/ML VIAL SQ SCH ×4 (06:09→20:08)
[2021-08-25] MEDS: PANTOPRAZOLE 40 MG TABLET PO SCH (06:17)
[2021-08-25 07:42] LABS: Calcium 7.7 mg/dL (8.4-10.2); Potassium 4.6 mmol/L (3.5-5.1)
[2021-08-25 07:51] LABS: Basophils % (A) 0 %; Eosinophils # (A) 0.4 k/uL (0-0.7); Eosinophils % (A) 4 %; HCT 24.7 % (34.0-46.0); HGB 7.6 gm/dL (11.4-16.0); Hypochromasia Marked; Lymphocytes # (A) 1.6 k/uL (1.0-4.8); Lymphocytes % (A) 20 %; MCH 27.9 pg (25.0-35.0); MCHC 30.8 g/dL (31.0-37.0); MCV 90.5 fL (80.0-100.0); Mean Platelet Volume 7.6; Monocytes # (A) 0.6 k/uL (0-1.0); Monocytes % (A) 8 %; Neutrophils # (A) 5.4 k/uL (1.3-7.7); Neutrophils % (A) 66 %; Platelet Count 399 k/uL (150-450); Poikilocytosis Slight; RBC 2.72 m/uL (3.80-5.40); RDW 15.3 % (11.5-15.5); WBC 8.2 k/uL (3.8-10.6)
[2021-08-25] MEDS: TAMSULOSIN 0.4 MG CAP.ER.24H PO SCH (08:35)
[2021-08-25] MEDS: polyethylene glycoL 3350 17 GM POWD.PACK PO SCH (08:35)
[2021-08-25] MEDS: SODIUM FERRIC GLUCONAT-SUCROSE 125 MG in SODIUM CHLORIDE 0.9% 100 ML IVPB SCH (08:35)
[2021-08-25] MEDS: DOCUSATE 100 MG CAP PO PRN (08:35)
--- NOTE | 2021-08-25 10:19 | P.PN ---
Subjective Progress Note Date: 08/25/21 Patient still has significant generalized weakness, but does feel better since her admission. She denies any obvious bleeding. Objective - Vital Signs Vital signs: Vital Signs Temp 97.6 F 08/25/21 08:25 Pulse 75 08/25/21 08:25 Resp 18 08/25/21 08:25 BP 123/60 08/25/21 08:25 Pulse Ox 96 08/25/21 08:25 Intake & Output 08/24/21 08/25/21 08/25/21 18:59 06:59 18:59 Intake Total 470 Output Total 1500 0 Balance -1030 0 Weight 75.5 kg Intake: Oral 470 Output: Urine 1500 0 Straight 1400 Other: Voiding Method Indwelling Catheter Indwelling Catheter - Constitutional General appearance: Present: no acute distress - EENT Eyes: Present: EOMI ENT: Present: hearing grossly normal, normal oropharynx - Respiratory Respiratory: bilateral: CTA - Cardiovascular Rhythm: regular Heart sounds: normal: S1, S2 - Gastrointestinal General gastrointestinal: Present: normal bowel sounds, soft - Integumentary Integumentary Comment(s): Left lower extremity wound and incisions, currently bandaged - Neurologic Neurologic: Present: CNII-XII intact - Musculoskeletal Musculoskeletal: Present: generalized weakness - Psychiatric Psychiatric: Present: A&O x's 3 - Labs CBC & Chem 7: 08/25/21 06:03 08/25/21 06:03 Labs: Abnormal Lab Results - Last 24 Hours (Table) 08/24/21 08/24/21 08/24/21 Range/Units 07:52 07:52 11:56 RBC (3.80-5.40) m/uL Hgb (11.4-16.0) gm/dL Hct (34.0-46.0) % MCHC (31.0-37.0) g/dL Sodium (137-145) mmol/L BUN (7-17) mg/dL Creatinine (0.52-1.04) mg/dL Glucose (74-99) mg/dL POC Glucose (mg/dL) 173 H (75-99) mg/dL Calcium (8.4-10.2) mg/dL Iron 11 L (50-170) ug/dL TIBC 209 L (228-460) ug/dL % Saturation 5.13 L (12.00-45.00) Transferrin 149.0 L (204.0-354.0) mg/dL Vitamin B12 1008.0 H (200.0-944.0) pg/mL IgA 475.0 H (60.0-350.0) mg/dL 08/24/21 08/24/21 08/25/21 Range/Units 16:23 20:11 06:03 RBC 2.72 L (3.80-5.40) m/uL Hgb 7.6 L (11.4-16.0) gm/dL Hct 24.7 L (34.0-46.0) % MCHC 30.8 L (31.0-37.0) g/dL Sodium (137-145) mmol/L BUN (7-17) mg/dL Creatinine (0.52-1.04) mg/dL Glucose (74-99) mg/dL POC Glucose (mg/dL) 121 H 148 H (75-99) mg/dL Calcium (8.4-10.2) mg/dL Iron (50-170) ug/dL TIBC (228-460) ug/dL % Saturation (12.00-45.00) Transferrin (204.0-354.0) mg/dL Vitamin B12 (200.0-944.0) pg/mL IgA (60.0-350.0) mg/dL 08/25/21 08/25/21 Range/Units 06:03 06:05 RBC (3.80-5.40) m/uL Hgb (11.4-16.0) gm/dL Hct (34.0-46.0) % MCHC (31.0-37.0) g/dL Sodium 130 L (137-145) mmol/L BUN 34 H (7-17) mg/dL Creatinine 1.90 H (0.52-1.04) mg/dL Glucose 106 H (74-99) mg/dL POC Glucose (mg/dL) 122 H (75-99) mg/dL Calcium 7.7 L (8.4-10.2) mg/dL Iron (50-170) ug/dL TIBC (228-460) ug/dL % Saturation (12.00-45.00) Transferrin (204.0-354.0) mg/dL Vitamin B12 (200.0-944.0) pg/mL IgA (60.0-350.0) mg/dL Assessment and Plan (1) Anemia Narrative/Plan: Hemoglobin is stable after transfusion at 7.6. Patient's workup shows normal B12 and folate. Her iron studies most likely indicate iron deficiency. Although ferritin is 200, her baseline ferritin is not known, and may have been much higher, given intermittent renal insufficiency as well as ongoing inflammatory issues over the past few months. Saturation is quite low, and the 5-6% range. - Patient is receiving IV iron. - Were discussed with the admitting service to place consult for GI workup. It was discussed with the patient that this would be strongly recommended, especially as the patient is continuing on antiplatelet therapy. Current Visit: Yes Status: Acute Code(s): D64.9 - ANEMIA, UNSPECIFIED SNOMED Code(s): 033334342 (2) Acute renal insufficiency Narrative/Plan: Creatinine appears to be stabilizing in the high 1 range. As noted, this is likely contributing to her anemia. If creatinine remains elevated, and the patient's hemoglobin remains less than 9 despite correction of iron stores, then ROMANA can be considered additionally in this situation Current Visit: Yes Status: Acute Code(s): N28.9 - DISORDER OF KIDNEY AND URETER, UNSPECIFIED SNOMED Code(s): 225855896
[2021-08-25 11:24] LABS: Glucose,Whole Blood 140 mg/dL (75-99)
[2021-08-25] MEDS: HYDROcodone/APAP 5-325MG 1 EACH TAB PO PRN ×2 (13:14→20:59)
[2021-08-25 16:10] LABS: Appearance,Urine Cloudy (Clear); Bacteria,Urine Occasional /hpf; Bilirubin,Urine Negative (Negative); Blood,Urine Trace (Negative); Budding Yeast,Urine Many /hpf; Color,Urine Yellow; Glucose,Urine (UA) Negative (Negative); Ketones,Urine Negative (Negative); Leukocyte Esterase,Urine Large (Negative); Mucus,Urine Rare /hpf; Nitrite,Urine Negative (Negative); Protein,Urine 1+ (Negative); RBC,Urine 30 /hpf (0-5); Specific Gravity,Urine 1.014 (1.001-1.035); Squamous Epithelial Cell,Urine 1 /hpf (0-4); Urobilinogen,Urine <2.0 mg/dL (<2.0); WBC,Urine >182 /hpf (0-5)
[2021-08-25 16:44] LABS: Glucose,Whole Blood 175 mg/dL (75-99)
[2021-08-25 20:00] LABS: Glucose,Whole Blood 105 mg/dL (75-99)
[2021-08-25] MEDS: ATORVASTATIN 20 MG TAB PO SCH (20:59)
--- NOTE | 2021-08-25 23:03 | P.PN ---
Subjective Progress Note Date: 08/25/21 Principal diagnosis: Left groin and lower extremity wounds Patient is a 77-year-old female with a past medical history significant for left ankle fracture status post a subsequently wound dehiscence requiring debridement culture were negative for the patient did have a left lower extremity revascularization no admitted to the hospital with anemia and some drainage from the wounds. On today's evaluation that is 08/25/2021, the patient continues to be afebrile, the patient is breathing comfortably on room air, the patient denies any chest pain shortness of breath or cough no abdominal pain. The patient denies pain to the left lower extremity wound area Objective - Vital Signs Vital signs: Vital Signs Temp 98.9 F 08/25/21 20:00 Pulse 81 08/25/21 20:00 Resp 17 08/25/21 20:00 BP 143/65 08/25/21 20:00 Pulse Ox 96 08/25/21 20:00 Intake & Output 08/25/21 08/25/21 08/26/21 06:59 18:59 06:59 Intake Total 110 Output Total 0 400 Balance 0 -290 Intake: Oral 110 Output: Urine 0 400 Other: Voiding Method Indwelling Catheter Indwelling Catheter Indwelling Catheter - Exam GENERAL DESCRIPTION: An elderly female lying in bed in no distress RESPIRATORY SYSTEM: Unlabored breathing , decreased breath sounds at bases HEART: S1 S2 regular rate and rhythm , ABDOMEN: Soft , no tenderness EXTREMITIES: Lower extremity wounds are currently dressed - Labs CBC & Chem 7: 08/25/21 06:03 08/25/21 06:03 Labs: Abnormal Lab Results - Last 24 Hours (Table) 08/22/21 08/24/21 08/25/21 Range/Units 15:43 07:52 06:03 RBC 2.72 L (3.80-5.40) m/uL Hgb 7.6 L (11.4-16.0) gm/dL Hct 24.7 L (34.0-46.0) % MCHC 30.8 L (31.0-37.0) g/dL Sodium (137-145) mmol/L BUN (7-17) mg/dL Creatinine (0.52-1.04) mg/dL Glucose (74-99) mg/dL POC Glucose (mg/dL) (75-99) mg/dL Calcium (8.4-10.2) mg/dL Urine Appearance Cloudy H (Clear) Urine Protein 1+ H (Negative) Urine Blood Trace H (Negative) Ur Leukocyte Esterase Large H (Negative) Urine RBC 30 H (0-5) /hpf Urine WBC >182 H (0-5) /hpf Urine WBC Clumps Few H (None) /hpf Urine Bacteria Occasional H (None) /hpf Urine Mucus Rare H (None) /hpf Urine Yeast (Budding) Many H (None) /hpf IgA 475.0 H (60.0-350.0) mg/dL 08/25/21 08/25/21 08/25/21 Range/Units 06:03 06:05 11:23 RBC (3.80-5.40) m/uL Hgb (11.4-16.0) gm/dL Hct (34.0-46.0) % MCHC (31.0-37.0) g/dL Sodium 130 L (137-145) mmol/L BUN 34 H (7-17) mg/dL Creatinine 1.90 H (0.52-1.04) mg/dL Glucose 106 H (74-99) mg/dL POC Glucose (mg/dL) 122 H 140 H (75-99) mg/dL Calcium 7.7 L (8.4-10.2) mg/dL Urine Appearance (Clear) Urine Protein (Negative) Urine Blood (Negative) Ur Leukocyte Esterase (Negative) Urine RBC (0-5) /hpf Urine WBC (0-5) /hpf Urine WBC Clumps (None) /hpf Urine Bacteria (None) /hpf Urine Mucus (None) /hpf Urine Yeast (Budding) (None) /hpf IgA (60.0-350.0) mg/dL 08/25/21 08/25/21 Range/Units 16:43 19:59 RBC (3.80-5.40) m/uL Hgb (11.4-16.0) gm/dL Hct (34.0-46.0) % MCHC (31.0-37.0) g/dL Sodium (137-145) mmol/L BUN (7-17) mg/dL Creatinine (0.52-1.04) mg/dL Glucose (74-99) mg/dL POC Glucose (mg/dL) 175 H 105 H (75-99) mg/dL Calcium (8.4-10.2) mg/dL Urine Appearance (Clear) Urine Protein (Negative) Urine Blood (Negative) Ur Leukocyte Esterase (Negative) Urine RBC (0-5) /hpf Urine WBC (0-5) /hpf Urine WBC Clumps (None) /hpf Urine Bacteria (None) /hpf Urine Mucus (None) /hpf Urine Yeast (Budding) (None) /hpf IgA (60.0-350.0) mg/dL Microbiology - Last 24 Hours (Table) 08/22/21 15:43 Urine Culture - Preliminary Urine,Voided Assessment and Plan (1) Non-pressure chronic ulcer of other part of left foot with fat layer exposed Current Visit: No Status: Acute Code(s): L97.522 - NON-PRS CHRONIC ULCER OTH PRT LEFT FOOT W FAT LAYER EXPOSED SNOMED Code(s): 149668162 (2) Non-pressure ulcer of left lower extremity with fat layer exposed Current Visit: No Status: Acute Code(s): L97.922 - NON-PRS CHR ULC UNSP PRT OF L LOW LEG W FAT LAYER EXPOSED SNOMED Code(s): 76938239 (3) Postoperative wound dehiscence Current Visit: No Status: Acute Code(s): T81.31XA - DISRUPTION OF EXTERNAL OPERATION (SURGICAL) WOUND, NEC, INIT SNOMED Code(s): 979681254 Plan: 1patient with a nonhealing wound to the left groin with some slough tissue but no cellulitis, patient to continue local wound care with the Santyl followed by moist dressing change daily. 2patient with left thigh and leg wound with no slough tissue or surrounding redness , patient to continue local wound care with a dry Aquacel silver dressing. 3patient with stage II pressure ulcer of the left heel area with no surrounding cellulitis, patient to continue local wound care with the dry Aquacel silver dressing daily of the pressure. 4patient with a stage I pressure ulcer to the right heel area with no open wound or any cellulitis to continue local care by keeping the area of the pressure no need for any dressing or creams. There is no need for systemic antibiotic therapy at this point as the patient is afebrile and white count is normal
--- NOTE | 2021-08-26 00:43 | P.PN ---
Subjective Progress Note Date: 08/25/21 Patient is a 70-year-old female with a known history of hypertension, hyperlipidemia, peripheral vascular disease status post left femoropopliteal in situ vein bypass with a left common femoral artery thromboendarterectomy with patch angioplasty on 07/29/2021, nonhealing left ankle fracture wound and previ ous history of smoking was sent to hospital from the rehab due to low hemoglobin level. Otherwise denied any hematemesis melena. No cough or sputum production. No chest pain or shortness of. No complaints of abdominal pain. Patient is also feeling weak and lethargic. On admission hemoglobin found to be 4.7 and patient was given 1 unit of PRBC. Repeat hemoglobin this morning showed at 7.5. No active bleeding at the left ankle surgical site noted. Other laboratory showed WBC 9.5 hemoglobin 4.7 platelets 411 MCV 87.8 Sodium 133 potassium 4.2 chloride 104 bicarb is 22 BUN 31 and creatinine 2.05 Previous creatinine level 0.93 about a week ago. Calcium 8.1 liver enzymes are not elevated and troponin is 0.140 and albumin 2.5. 08/23/2021 Patient is currently resting in the bed. Awake alert and oriented x3. No complaints of chest pain or shortness of. Tolerating oral diet. Otherwise armando sow did not have any bowel movement lower the last few days. Denied any complaints of lower extremity pain. Laboratory data showed hemoglobin 7.8 and platelets 341 sodium 132 potassium 4.4 chloride 105 BUN 3020 creatinine improved to 1.94. Patient is being continued on IV hydration with normal saline. Troponin trending down to 0.114. No complaints of chest pain or shortness breath. No headache or dizziness or lightheadedness. Procalcitonin 0.18 and CRP levels 4.5. ID has seen the patient and continue with local wound care and moist dressing change daily. No further antibiotic therapy recommended. Hematology was consulted and anemia and hemolysis work-up was ordered. 08/24/2021 Patient is currently resting alert. Recollecting when x3. Denied any complaints of chest pain or shortness of breath. No headache or dizziness or lightheadedness. Leg pain is improved. No active bleeding noted. Otherwise patient is having constipation and is being continued softeners and laxatives. Patient has been afebrile. Lab data showed WBC 7.1 hemoglobin improved to 8.1 platelets 389 sodium 132, potassium 4.3 chloride 103 BUN 3020 creatinine 1.82 Calcium 8.0. Patient is iron deficient. 08/25/2021 Patient is currently lying in the bed. Awake alert and oriented. No complaints of chest pain or shortness of breath. Denies any leg pain. No fever no chills. Patient is being current on left lower extremity wound care. Otherwise laboratory data showed WBC 8.2 hemoglobin 7.6 and platelets 399. Patient is being continued on IV supplementation IV iron. Sodium 130 potassium 4.6 ch loride 103 BUN 34 and creatinine 1.90 also on IV hydration. Tolerating oral diet slowly. General surgery was consulted for evaluation of GI bleeding. ID and hematology is on board. Current medications reviewed. Objective - Vital Signs Vital signs: Vital Signs Temp 98.7 F 08/25/21 16:57 Pulse 70 08/25/21 16:57 Resp 15 08/25/21 16:57 BP 123/59 08/25/21 16:57 Pulse Ox 94 L 08/25/21 16:57 Intake & Output 08/24/21 08/25/21 08/25/21 18:59 06:59 18:59 Intake Total 470 110 Output Total 1500 0 400 Balance -1030 0 -290 Weight 75.5 kg Intake: Oral 470 110 Output: Urine 1500 0 400 Straight 1400 Other: Voiding Method Indwelling Catheter Indwelling Catheter Indwelling Catheter - Exam PHYSICAL EXAMINATION: Patient is lying in the bed comfortably, no acute distress, awake alert and oriented.. Lethargic and drowsy. HEENT: Normocephalic. Neck is supple. Pupils reactive. Nostrils clear. Oral cavity is moist. Neck reveals no JVD, carotid bruits, or thyromegaly. CHEST EXAMINATION: Trachea is central. Symmetrical expansion. Bibasilar diminished sounds, lung iniguez clear to auscultation and percussion. CARDIAC: Normal S1, S2 with no gallops. No murmurs ABDOMEN: Soft. Bowel sounds normal. No organomegaly. No abdominal bruits. Extremities: reveal no edema. No clubbing or cyanosis Neurologically awake, alert, oriented x3 with well-coordinated movements. No focal deficits noted Skin: No rash or skin lesions. Psychiatric: Cooperative. Nonsuicidal Musculoskeletal: No joint swelling or deformity. Normal range of motion. Left ankle surgical site is bandaged. - Labs CBC & Chem 7: 08/25/21 06:03 08/25/21 06:03 Labs: Abnormal Lab Results - Last 24 Hours (Table) 08/22/21 08/24/21 08/24/21 Range/Units 15:43 07:52 20:11 RBC (3.80-5.40) m/uL Hgb (11.4-16.0) gm/dL Hct (34.0-46.0) % MCHC (31.0-37.0) g/dL Sodium (137-145) mmol/L BUN (7-17) mg/dL Creatinine (0.52-1.04) mg/dL Glucose (74-99) mg/dL POC Glucose (mg/dL) 148 H (75-99) mg/dL Calcium (8.4-10.2) mg/dL Urine Appearance Cloudy H (Clear) Urine Protein 1+ H (Negative) Urine Blood Trace H (Negative) Ur Leukocyte Esterase Large H (Negative) Urine RBC 30 H (0-5) /hpf Urine WBC >182 H (0-5) /hpf Urine WBC Clumps Few H (None) /hpf Urine Bacteria Occasional H (None) /hpf Urine Mucus Rare H (None) /hpf Urine Yeast (Budding) Many H (None) /hpf IgA 475.0 H (60.0-350.0) mg/dL 08/25/21 08/25/21 08/25/21 Range/Units 06:03 06:03 06:05 RBC 2.72 L (3.80-5.40) m/uL Hgb 7.6 L (11.4-16.0) gm/dL Hct 24.7 L (34.0-46.0) % MCHC 30.8 L (31.0-37.0) g/dL Sodium 130 L (137-145) mmol/L BUN 34 H (7-17) mg/dL Creatinine 1.90 H (0.52-1.04) mg/dL Glucose 106 H (74-99) mg/dL POC Glucose (mg/dL) 122 H (75-99) mg/dL Calcium 7.7 L (8.4-10.2) mg/dL Urine Appearance (Clear) Urine Protein (Negative) Urine Blood (Negative) Ur Leukocyte Esterase (Negative) Urine RBC (0-5) /hpf Urine WBC (0-5) /hpf Urine WBC Clumps (None) /hpf Urine Bacteria (None) /hpf Urine Mucus (None) /hpf Urine Yeast (Budding) (None) /hpf IgA (60.0-350.0) mg/dL 08/25/21 08/25/21 Range/Units 11:23 16:43 RBC (3.80-5.40) m/uL Hgb (11.4-16.0) gm/dL Hct (34.0-46.0) % MCHC (31.0-37.0) g/dL Sodium (137-145) mmol/L BUN (7-17) mg/dL Creatinine (0.52-1.04) mg/dL Glucose (74-99) mg/dL POC Glucose (mg/dL) 140 H 175 H (75-99) mg/dL Calcium (8.4-10.2) mg/dL Urine Appearance (Clear) Urine Protein (Negative) Urine Blood (Negative) Ur Leukocyte Esterase (Negative) Urine RBC (0-5) /hpf Urine WBC (0-5) /hpf Urine WBC Clumps (None) /hpf Urine Bacteria (None) /hpf Urine Mucus (None) /hpf Urine Yeast (Budding) (None) /hpf IgA (60.0-350.0) mg/dL Assessment and Plan Assessment: Symptomatic anemia with hemoglobin 4.7 on admission. s/p PRBC transfusion. hb 7.6 Iron deficiency anemia Acute kidney injury likely prerenal. possible AIN with pt being on vancomycin Elevated troponin. likely demand ischemia. Hypovolemic hyponatremia Nonhealing left ankle ulcer stage 2. No active bleeding noted. Status post left femoropopliteal in situ vein graft, left, femoral artery thromboendarterectomy with patch angioplasty on 07/29/2021. Hypertension Hyperlipidemia Diabetes type 2 [id number] History of [place] Previous history of smoking Plan: Patient was posses with 1 unit of PRBC on admission and hemoglobin improved to 7.5--7.8--7.6 today. Continue to monitor H&H. No active bleeding noted. Patient denied any hematemesis or melena. Patient was seen by hematology. Anemia and hemolysis work-up was ordered. General surgery consult to evaluate for GI bleed. with stool softeners for constipation.. Continue with IV hydration and monitor renal function. Hold blood pressure medications and continue with insulin sliding scale. C hronic pain management. Vascular surgery was consulted for evaluation of surgical wound. Continue to follow closely. Time with Patient: Greater than 30
[2021-08-26 06:05] LABS: Glucose,Whole Blood 119 mg/dL (75-99)
[2021-08-26] MEDS: INSULIN ASPART (NovoLOG) 100 UNIT/ML VIAL SQ SCH ×4 (06:08→22:15)
[2021-08-26] MEDS: SODIUM CHLORIDE 0.9% 1,000 ML IV SCH ×2 (06:08→17:32)
[2021-08-26] MEDS: PANTOPRAZOLE 40 MG TABLET PO SCH (06:42)
[2021-08-26 07:25] LABS: Basophils % (A) 0 %; Eosinophils # (A) 0.3 k/uL (0-0.7); Eosinophils % (A) 3 %; HCT 26.9 % (34.0-46.0); HGB 8.3 gm/dL (11.4-16.0); Hypochromasia Marked; Lymphocytes # (A) 1.1 k/uL (1.0-4.8); Lymphocytes % (A) 13 %; MCH 28.1 pg (25.0-35.0); MCHC 30.8 g/dL (31.0-37.0); MCV 91.2 fL (80.0-100.0); Mean Platelet Volume 7.2; Monocytes # (A) 0.6 k/uL (0-1.0); Monocytes % (A) 7 %; Neutrophils # (A) 6.4 k/uL (1.3-7.7); Neutrophils % (A) 76 %; Platelet Count 436 k/uL (150-450); Poikilocytosis Slight; RBC 2.95 m/uL (3.80-5.40); RDW 14.9 % (11.5-15.5); WBC 8.4 k/uL (3.8-10.6)
[2021-08-26 07:37] LABS: Calcium 7.9 mg/dL (8.4-10.2); Potassium 4.7 mmol/L (3.5-5.1)
[2021-08-26] MEDS: COLLAGENASE 250 UNIT/GM OINTMENT 30 GM TUBE TOPICAL SCH ×2 (08:32→09:12)
[2021-08-26] MEDS: polyethylene glycoL 3350 17 GM POWD.PACK PO SCH (09:12)
[2021-08-26] MEDS: TAMSULOSIN 0.4 MG CAP.ER.24H PO SCH (09:12)
[2021-08-26] MEDS: SODIUM FERRIC GLUCONAT-SUCROSE 125 MG in SODIUM CHLORIDE 0.9% 100 ML IVPB SCH (09:12)
[2021-08-26] MEDS ORDERED: PEG 3350-NA SULF,BICARB,CL/KCL 4,000 ML BOTTLE PO ONE (10:00)
[2021-08-26 11:39] LABS: Glucose,Whole Blood 114 mg/dL (75-99)
--- NOTE | 2021-08-26 12:02 | P.PN ---
Subjective Patient is a 70-year-old female with a known history of hypertension, hyperlipidemia, peripheral vascular disease status post left femoropopliteal in situ vein bypass with a left common femoral artery thromboendarterectomy with patch angioplasty on 07/29/2021, nonhealing left ankle fracture wound and previous history of smoking was sent to hospital from the rehab due to low hemoglobin level. Otherwise denied any hematemesis melena. No cough or sputum production. No chest pain or shortness of. No complaints of abdominal pain. Patient is also feeling weak and lethargic. On admission hemoglobin found to be 4.7 and patient was given 1 unit of PRBC. Repeat hemoglobin this morning showed at 7.5. No active bleeding at the left ankle surgical site noted. Other laboratory showed WBC 9.5 hemoglobin 4.7 platelets 411 MCV 87.8 Sodium 133 potassium 4.2 chloride 104 bicarb is 22 BUN 31 and creatinine 2.05 Previous creatinine level 0.93 about a week ago. Calcium 8.1 liver enzymes are not elevated and troponin is 0.140 and albumin 2.5. 08/23/2021 Patient is currently resting in the bed. Awake alert and oriented x3. No complaints of chest pain or shortness of. Tolerating oral diet. Otherwise patient did not have any bowel movement lower the last few days. Denied any complaints of lower extremity pain. Laboratory data showed hemoglobin 7.8 and platelets 341 sodium 132 potassium 4.4 chloride 105 BUN 3020 creatinine improved to 1.94. Patient is being continued on IV hydration with normal saline. Troponin trending down to 0.114. No complaints of chest pain or shortness breath. No headache or dizziness or lightheadedness. Procalcitonin 0.18 and CRP levels 4.5. ID has seen the patient and continue with local wound care and moist dressing change daily. No further antibiotic therapy recommended. Hematology was consulted and anemia and hemolysis work-up was ordered. 08/24/2021 Patient is currently resting alert. Recollecting when x3. Denied any complaints of chest pain or shortness of breath. No headache or dizziness or lightheadedness. Leg pain is improved. No active bleeding noted. Otherwise patient is having constipation and is being continued softeners and laxatives. Patient has been afebrile. Lab data showed WBC 7.1 hemoglobin improved to 8.1 platelets 389 sodium 132, potassium 4.3 chloride 103 BUN 3020 creatinine 1.82 Calcium 8.0. Patient is iron deficient. 08/25/2021 Patient is currently lying in the bed. Awake alert and oriented. No complaints of chest pain or shortness of breath. Denies any leg pain. No fever no chills. Patient is being current on left lower extremity wound care. Otherwise laboratory data showed WBC 8.2 hemoglobin 7.6 and platelets 399. Patient is being continued on IV supplementation IV iron. Sodium 130 potassium 4.6 chloride 103 BUN 34 and creatinine 1.90 also on IV hydration. Tolerating oral diet slowly. General surgery was consulted for evaluation of GI bleeding. ID and hematology is on board. 08/26/2021 She doesn't have any more bleeding patient is now without stools or blood in the stools. Patient is clinically doing well. Patient will undergo colonoscopy and upper GI endoscopy. Patient's hemoglobin remained stable creatinine remains stable patient is off vancomycin. In summary assistance of progress note - Exam PHYSICAL EXAMINATION: Patient is lying in the bed comfortably, no acute distress, awake alert and o riented.. Lethargic and drowsy. HEENT: Normocephalic. Neck is supple. Pupils reactive. Nostrils clear. Oral cavity is moist. Neck reveals no JVD, carotid bruits, or thyromegaly. CHEST EXAMINATION: Trachea is central. Symmetrical expansion. Bibasilar diminished sounds, lung iniguez clear to auscultation and percussion. CARDIAC: Normal S1, S2 with no gallops. No murmurs ABDOMEN: Soft. Bowel sounds normal. No organomegaly. No abdominal bruits. Extremities: reveal no edema. No clubbing or cyanosis Neurologically awake, alert, oriented x3 with well-coordinated movements. No focal deficits noted Skin: No rash or skin lesions. Psychiatric: Cooperative. Nonsuicidal Musculoskeletal: No joint swelling or deformity. Normal range of motion. Left ankle surgical site is bandaged. Assessment and Plan Assessment: Symptomatic anemia with hemoglobin 4.7 on admission. s/p PRBC transfusion. hb 7.6 . No evidence of acute GI bleed at this time patient will undergo upper GI endoscopy and colonoscopy Iron deficiency anemia Acute kidney injury likely prerenal. possible AIN with pt being on vancomycin. His serum creatinine remains stable. Elevated troponin. likely demand ischemia. Hypovolemic hyponatremia Nonhealing left ankle ulcer stage 2. No active bleeding noted. Status post left femoropopliteal in situ vein graft, left, femoral artery thro mboendarterectomy with patch angioplasty on 07/29/2021. Hypertension Hyperlipidemia Diabetes type 2 [id number] History of [place] Previous history of smoking Objective - Vital Signs Vital signs: Vital Signs Temp 98.2 F 08/26/21 08:00 Pulse 83 08/26/21 08:00 Resp 18 08/26/21 08:00 BP 136/62 08/26/21 08:00 Pulse Ox 93 L 08/26/21 08:00 Intake & Output 08/25/21 08/26/21 08/26/21 18:59 06:59 18:59 Intake Total 110 118 Output Total 400 1000 Balance -290 -1000 118 Intake: Oral 110 118 Output: Urine 400 1000 Other: Voiding Method Indwelling Catheter Indwelling Catheter Indwelling Catheter - Labs CBC & Chem 7: 08/26/21 06:01 08/26/21 06:01 Labs: Abnormal Lab Results - Last 24 Hours (Table) 08/22/21 08/25/21 08/25/21 Range/Units 15:43 16:43 19:59 RBC (3.80-5.40) m/uL Hgb (11.4-16.0) gm/dL Hct (34.0-46.0) % MCHC (31.0-37.0) g/dL Sodium (137-145) mmol/L BUN (7-17) mg/dL Creatinine (0.52-1.04) mg/dL Glucose (74-99) mg/dL POC Glucose (mg/dL) 175 H 105 H (75-99) mg/dL Calcium (8.4-10.2) mg/dL Urine Appearance Cloudy H (Clear) Urine Protein 1+ H (Negative) Urine Blood Trace H (Negative) Ur Leukocyte Esterase Large H (Negative) Urine RBC 30 H (0-5) /hpf Urine WBC >182 H (0-5) /hpf Urine WBC Clumps Few H (None) /hpf Urine Bacteria Occasional H (None) /hpf Urine Mucus Rare H (None) /hpf Urine Yeast (Budding) Many H (None) /hpf 08/26/21 08/26/21 08/26/21 Range/Units 06:01 06:01 06:04 RBC 2.95 L (3.80-5.40) m/uL Hgb 8.3 L (11.4-16.0) gm/dL Hct 26.9 L (34.0-46.0) % MCHC 30.8 L (31.0-37.0) g/dL Sodium 131 L (137-145) mmol/L BUN 30 H (7-17) mg/dL Creatinine 1.86 H (0.52-1.04) mg/dL Glucose 106 H (74-99) mg/dL POC Glucose (mg/dL) 119 H (75-99) mg/dL Calcium 7.9 L (8.4-10.2) mg/dL Urine Appearance (Clear) Urine Protein (Negative) Urine Blood (Negative) Ur Leukocyte Esterase (Negative) Urine RBC (0-5) /hpf Urine WBC (0-5) /hpf Urine WBC Clumps (None) /hpf Urine Bacteria (None) /hpf Urine Mucus (None) /hpf Urine Yeast (Budding) (None) /hpf 08/26/21 Range/Units 11:37 RBC (3.80-5.40) m/uL Hgb (11.4-16.0) gm/dL Hct (34.0-46.0) % MCHC (31.0-37.0) g/dL Sodium (137-145) mmol/L BUN (7-17) mg/dL Creatinine (0.52-1.04) mg/dL Glucose (74-99) mg/dL POC Glucose (mg/dL) 114 H (75-99) mg/dL Calcium (8.4-10.2) mg/dL Urine Appearance (Clear) Urine Protein (Negative) Urine Blood (Negative) Ur Leukocyte Esterase (Negative) Urine RBC (0-5) /hpf Urine WBC (0-5) /hpf Urine WBC Clumps (None) /hpf Urine Bacteria (None) /hpf Urine Mucus (None) /hpf Urine Yeast (Budding) (None) /hpf Microbiology - Last 24 Hours (Table) 08/22/21 15:43 Urine Culture - Preliminary Urine,Voided
--- NOTE | 2021-08-26 12:28 | P.GSCN ---
History of Present Illness Consult date: 08/26/21 Reason for Consult: Anemia History of present illness: CHIEF COMPLAINT: Anemia, weakness HISTORY OF PRESENT ILLNESS: This is 70-year-old female with a history of peripheral arterial disease with a left ankle fracture nonhealing wound. She underwent a fem-pop in situ vein bypass with left common femoral artery thromboendarterectomy with patch angioplasty on 07/30/[address] Mckeon. The patient was sent to rehab and had been found to have low hemoglobin and was sent to the hospital for further evaluation. Once admitted patient was noted to have a hemoglobin of 4.7. She is status post 2 units of PRBC transfusion with a repeat hemoglobin today of 8.3. Initially orthopedics and vascular surgery was consulted to evaluate for possible postop bleed. It was determined there was no evidence of any postop bleed. Hematology was consulted for anemia and suggested a GI workup for possible GI blood loss. Gen. surgery was consulted for anemia, rule out GI bleed as gastroenterology is not available this week. The patient states she has had some dark stool. No blood in her stool. Denies any abdominal pain, nausea or vomiting. She has no previous history of peptic ulcer disease, no previous EGD or colonoscopy. Patient had been taking Motrin for left lower extremity pain due to her orthopedic surgery. Patient does take Plavix, last dose 08/21/2021. PAST MEDICAL HISTORY: Diabetes mellitus, hyperlipidemia, hypertension, myocardial infarction, peripheral arterial disease PAST SURGICAL HISTORY: Left fem-pop in situ vein bypass with Left [employer] thrombo-endarterectomy Left ankle ORIF MEDICATIONS: See list. ALLERGIES: See list. SOCIAL HISTORY: No illicit drug use. REVIEW OF SYSTEMS: CONSTITUTIONAL: Denies fever or chills. HEENT: Denies blurred vision, vision changes, or eye pain. Denies hemoptysis CARDIOVASCULAR: Denies chest pain or pressure. RESPIRATORY: No shortness of breath. GASTROINTESTINAL: See HPI for pertinent findings HEMATOLOGIC: Denies bleeding disorders. GENITOURINARY: Denies any blood in urine or increased urinary frequency. SKIN: Denies pruitis. Denies rash. PHYSICAL EXAM: VITAL SIGNS: Reviewed GENERAL: Well-developed in no acute distress. HEENT: No sclera icterus. Extraocular movements grossly intact. Moist buccal mucosa. Head is atraumatic, normocephalic. No nasal drainage. ABDOMEN: Soft. Nondistended. Tenderness with palpation to right lower quadrant. NEUROLOGIC: Alert and oriented. Cranial nerves II through XII grossly intact. LABORATORY DATA: WBC 8.4 hemoglobin 8.3 platelet count 436,000 Sodium 131 potassium 4.7 BUN30 creatinine 1.86 glucose 106 IMAGING: ASSESSMENT: 1. Anemia 2. Weakness 3. Recent left lower extremity revascularization on Plavix PLAN: 1. Clear liquid diet, nothing by mouth after midnight 2. Avoid NSAIDs 3. Daily CBC, transfuse per protocol 4. Protonix 40 mg daily GI prophylaxis 5. Bowel prep 6. Will plan EGD and colonoscopy tomorrow Thank you for this consultation, we will continue to follow. The impression and plan of care has been dictated as directed. I performed a history and examination of this patient, discussed the same with the dictator. I agree with the dictator's note ,documented as a scribe. Any additional findings or plans will be noted. Past Medical History Past Medical History: Diabetes Mellitus, Hyperlipidemia, Hypertension, Myocardial Infarction (OK), Vascular Disorder Additional Past Medical History / Comment(s): DM type 2. Last Myocardial Infarction Date:: 1989 History of Any Multi-Drug Resistant Organisms: None Reported Past Surgical History: No Surgical Hx Reported Additional Past Surgical History / Comment(s): "Female surgery to help with .". vascular surgery to right leg Past Anesthesia/Blood Transfusion Reactions: No Reported Reaction Past Psychological History: No Psychological Hx Reported Smoking Status: Former smoker Past Alcohol Use History: None Reported, Rare Additional Past Alcohol Use History / Comment(s): Quit smoking 28 yrs ago. Past Drug Use History: None Reported Additional Drug Use History / Comment(s): "Pot once in a great while". - Past Family History Mother Family Medical History: No Reported History Medications and Allergies Home Medications Medication Instructions Recorded Confirmed Type Aspirin 81 mg PO DAILY 07/16/21 08/22/21 History Ergocalciferol [Vitamin D2 (1250 1,250 mcg PO TU 07/16/21 08/22/21 History Mcg = 74218 Iu)] Magnesium Oxide [Magox 400] 400 mg PO HS 07/16/21 08/22/21 History metFORMIN HCL [Glucophage] 500 mg PO BID 07/16/21 08/22/21 History Vancomycin HCl in 5 % Dextrose 1 gm IV Q16H #30 each 07/24/21 08/22/21 Rx [Vancomycin 1 Gram/250 ml-D5w] Acetaminophen [Tylenol] 650 mg PO Q6H PRN 07/26/21 08/22/21 History Linagliptin [Tradjenta] 5 mg PO DAILY 07/26/21 08/22/21 History Tamsulosin [Flomax] 0.4 mg PO DAILY 07/26/21 08/22/21 History amLODIPine BESYLATE 10 mg PO HS 07/26/21 08/22/21 History cefTRIAXone SODIUM 2 gm IV Q24H 07/26/21 08/22/21 History HYDROcodone/APAP 5-325MG [[place] 1 tab PO Q6HR PRN #9 tab 07/31/21 08/22/21 Rx 5-325] Atorvastatin [Lipitor] 20 mg PO HS@199908/15/21 08/22/21 History Clopidogrel [Plavix] 75 mg PO HS@199908/15/21 08/22/21 History Docusate [Colace] 100 mg PO DAILY PRN 08/15/21 08/22/21 History Melatonin 5 mg PO HS@199908/15/21 08/22/21 History Multivitamins, Thera [Multivitamin 1 tab PO DAILY 08/15/21 08/22/21 History (formulary)] Promethazine HCl 12.5 mg PO Q8H PRN 08/15/21 08/22/21 History Ferrous Sulfate [Feosol] 325 mg PO HS@199908/22/21 08/22/21 History Allergies Allergy/AdvReac Type Severity Reaction Status Date / Time codeine AdvReac Itching Verified 08/22/21 07:43 Surgical - Exam Vital Signs Temp Pulse Resp BP Pulse Ox 97.8 F 88 20 99/60 97 08/21/21 23:17 08/21/21 23:17 08/21/21 23:17 08/21/21 23:17 08/21/21 23:17 Results - Labs 08/26/21 06:01 08/26/21 06:01 Abnormal Lab Results - Last 24 Hours (Table) 08/22/21 08/25/21 08/25/21 Range/Units 15:43 11:23 16:43 RBC (3.80-5.40) m/uL Hgb (11.4-16.0) gm/dL Hct (34.0-46.0) % MCHC (31.0-37.0) g/dL Sodium (137-145) mmol/L BUN (7-17) mg/dL Creatinine (0.52-1.04) mg/dL Glucose (74-99) mg/dL POC Glucose (mg/dL) 140 H 175 H (75-99) mg/dL Calcium (8.4-10.2) mg/dL Urine Appearance Cloudy H (Clear) Urine Protein 1+ H (Negative) Urine Blood Trace H (Negative) Ur Leukocyte Esterase Large H (Negative) Urine RBC 30 H (0-5) /hpf Urine WBC >182 H (0-5) /hpf Urine WBC Clumps Few H (None) /hpf Urine Bacteria Occasional H (None) /hpf Urine Mucus Rare H (None) /hpf Urine Yeast (Budding) Many H (None) /hpf 08/25/21 08/26/21 08/26/21 Range/Units 19:59 06:01 06:01 RBC 2.95 L (3.80-5.40) m/uL Hgb 8.3 L (11.4-16.0) gm/dL Hct 26.9 L (34.0-46.0) % MCHC 30.8 L (31.0-37.0) g/dL Sodium 131 L (137-145) mmol/L BUN 30 H (7-17) mg/dL Creatinine 1.86 H (0.52-1.04) mg/dL Glucose 106 H (74-99) mg/dL POC Glucose (mg/dL) 105 H (75-99) mg/dL Calcium 7.9 L (8.4-10.2) mg/dL Urine Appearance (Clear) Urine Protein (Negative) Urine Blood (Negative) Ur Leukocyte Esterase (Negative) Urine RBC (0-5) /hpf Urine WBC (0-5) /hpf Urine WBC Clumps (None) /hpf Urine Bacteria (None) /hpf Urine Mucus (None) /hpf Urine Yeast (Budding) (None) /hpf 08/26/21 Range/Units 06:04 RBC (3.80-5.40) m/uL Hgb (11.4-16.0) gm/dL Hct (34.0-46.0) % MCHC (31.0-37.0) g/dL Sodium (137-145) mmol/L BUN (7-17) mg/dL Creatinine (0.52-1.04) mg/dL Glucose (74-99) mg/dL POC Glucose (mg/dL) 119 H (75-99) mg/dL Calcium (8.4-10.2) mg/dL Urine Appearance (Clear) Urine Protein (Negative) Urine Blood (Negative) Ur Leukocyte Esterase (Negative) Urine RBC (0-5) /hpf Urine WBC (0-5) /hpf Urine WBC Clumps (None) /hpf Urine Bacteria (None) /hpf Urine Mucus (None) /hpf Urine Yeast (Budding) (None) /hpf Microbiology - Last 24 Hours (Table) 08/22/21 15:43 Urine Culture - Preliminary Urine,Voided Diabetes panel 08/26/21 Range/Units 06:01 Sodium 131 L (137-145) mmol/L Potassium 4.7 (3.5-5.1) mmol/L Chloride 103 (98-107) mmol/L Carbon Dioxide 25 (22-30) mmol/L BUN 30 H (7-17) mg/dL Creatinine 1.86 H (0.52-1.04) mg/dL Glucose 106 H (74-99) mg/dL Calcium 7.9 L (8.4-10.2) mg/dL Calcium panel 08/26/21 Range/Units 06:01 Calcium 7.9 L (8.4-10.2) mg/dL Pituitary panel 08/26/21 Range/Units 06:01 Sodium 131 L (137-145) mmol/L Potassium 4.7 (3.5-5.1) mmol/L Chloride 103 (98-107) mmol/L Carbon Dioxide 25 (22-30) mmol/L BUN 30 H (7-17) mg/dL Creatinine 1.86 H (0.52-1.04) mg/dL Glucose 106 H (74-99) mg/dL Calcium 7.9 L (8.4-10.2) mg/dL Adrenal panel 08/26/21 Range/Units 06:01 Sodium 131 L (137-145) mmol/L Potassium 4.7 (3.5-5.1) mmol/L Chloride 103 (98-107) mmol/L Carbon Dioxide 25 (22-30) mmol/L BUN 30 H (7-17) mg/dL Creatinine 1.86 H (0.52-1.04) mg/dL Glucose 106 H (74-99) mg/dL Calcium 7.9 L (8.4-10.2) mg/dL
--- NOTE | 2021-08-26 14:22 | P.PN ---
Objective - Vital Signs Vital signs: Vital Signs Temp 98.2 F 08/26/21 08:00 Pulse 83 08/26/21 08:00 Resp 18 08/26/21 08:00 BP 136/62 08/26/21 08:00 Pulse Ox 93 L 08/26/21 08:00 Intake & Output 08/25/21 08/26/21 08/26/21 18:59 06:59 18:59 Intake Total 110 118 Output Total 400 1000 Balance -290 -1000 118 Intake: Oral 110 118 Output: Urine 400 1000 Other: Voiding Method Indwelling Catheter Indwelling Catheter Indwelling Catheter - Exam - Constitutional General appearance: Present: no acute distress - EENT Eyes: Present: EOMI ENT: Present: hearing grossly normal, normal oropharynx - Respiratory Respiratory: bilateral: CTA - Cardiovascular Rhythm: regular Heart sounds: normal: S1, S2 - Gastrointestinal General gastrointestinal: Present: normal bowel sounds, soft - Integumentary Integumentary Comment(s): Left lower extremity wound and incisions, currently bandaged - Neurologic Neurologic: Present: CNII-XII intact - Musculoskeletal Musculoskeletal: Present: generalized weakness - Psychiatric Psychiatric: Present: A&O x's 3 - Labs CBC & Chem 7: 08/26/21 06:01 08/26/21 06:01 Labs: Abnormal Lab Results - Last 24 Hours (Table) 08/22/21 08/24/21 08/25/21 Range/Units 15:43 07:52 16:43 RBC (3.80-5.40) m/uL Hgb (11.4-16.0) gm/dL Hct (34.0-46.0) % MCHC (31.0-37.0) g/dL Sodium (137-145) mmol/L BUN (7-17) mg/dL Creatinine (0.52-1.04) mg/dL Glucose (74-99) mg/dL POC Glucose (mg/dL) 175 H (75-99) mg/dL Calcium (8.4-10.2) mg/dL RBC Folate 1,067 H (280 - 791) ng/mL Urine Appearance Cloudy H (Clear) Urine Protein 1+ H (Negative) Urine Blood Trace H (Negative) Ur Leukocyte Esterase Large H (Negative) Urine RBC 30 H (0-5) /hpf Urine WBC >182 H (0-5) /hpf Urine WBC Clumps Few H (None) /hpf Urine Bacteria Occasional H (None) /hpf Urine Mucus Rare H (None) /hpf Urine Yeast (Budding) Many H (None) /hpf 08/25/21 08/26/21 08/26/21 Range/Units 19:59 06:01 06:01 RBC 2.95 L (3.80-5.40) m/uL Hgb 8.3 L (11.4-16.0) gm/dL Hct 26.9 L (34.0-46.0) % MCHC 30.8 L (31.0-37.0) g/dL Sodium 131 L (137-145) mmol/L BUN 30 H (7-17) mg/dL Creatinine 1.86 H (0.52-1.04) mg/dL Glucose 106 H (74-99) mg/dL POC Glucose (mg/dL) 105 H (75-99) mg/dL Calcium 7.9 L (8.4-10.2) mg/dL RBC Folate (280 - 791) ng/mL Urine Appearance (Clear) Urine Protein (Negative) Urine Blood (Negative) Ur Leukocyte Esterase (Negative) Urine RBC (0-5) /hpf Urine WBC (0-5) /hpf Urine WBC Clumps (None) /hpf Urine Bacteria (None) /hpf Urine Mucus (None) /hpf Urine Yeast (Budding) (None) /hpf 08/26/21 08/26/21 Range/Units 06:04 11:37 RBC (3.80-5.40) m/uL Hgb (11.4-16.0) gm/dL Hct (34.0-46.0) % MCHC (31.0-37.0) g/dL Sodium (137-145) mmol/L BUN (7-17) mg/dL Creatinine (0.52-1.04) mg/dL Glucose (74-99) mg/dL POC Glucose (mg/dL) 119 H 114 H (75-99) mg/dL Calcium (8.4-10.2) mg/dL RBC Folate (280 - 791) ng/mL Urine Appearance (Clear) Urine Protein (Negative) Urine Blood (Negative) Ur Leukocyte Esterase (Negative) Urine RBC (0-5) /hpf Urine WBC (0-5) /hpf Urine WBC Clumps (None) /hpf Urine Bacteria (None) /hpf Urine Mucus (None) /hpf Urine Yeast (Budding) (None) /hpf Microbiology - Last 24 Hours (Table) 08/22/21 15:43 Urine Culture - Preliminary Urine,Voided Assessment and Plan (1) Acute renal insufficiency Current Visit: Yes Status: Acute Code(s): N28.9 - DISORDER OF KIDNEY AND URETER, UNSPECIFIED SNOMED Code(s): 211965853 (2) Anemia Current Visit: Yes Status: Acute Code(s): D64.9 - ANEMIA, UNSPECIFIED SNOMED Code(s): 865921926 Plan: Assessment and Plan (1) Anemia Narrative/Plan: Hemoglobin is 8.3 today. Patient's workup shows normal B12 and folate. Iron deficiency is most likely picture and plan for GI evaluation today Saturation is quite low, and the 5-6% range. - Patient is receiving IV iron. Await GI work-up Current Visit: Yes Status: Acute Code(s): D64.9 - ANEMIA, UNSPECIFIED SNOMED Code(s): 884865296 (2) Acute renal insufficiency Narrative/Plan: Creatinine appears to be stabilizing in the high 1 range. 1.8 today As noted, this is likely contributing to her anemia. If creatinine remains elevated, and the patient's hemoglobin remains less than 9 despite correction of iron stores, then ROMANA can be considered additionally in this situation Current Visit: Yes Status: Acute Code(s): N28.9 - DISORDER OF KIDNEY AND URETER, UNSPECIFIED SNOMED Code(s): 310903073
[2021-08-26 14:51] LABS: Free Lambda Lt Chain Qnt, Seru 9.79 mg/dL (0.57-2.63)
[2021-08-26] MEDS: HYDROcodone/APAP 5-325MG 1 EACH TAB PO PRN ×2 (15:30→20:30)
[2021-08-26 16:32] LABS: Glucose,Whole Blood 103 mg/dL (75-99)
[2021-08-26 20:18] LABS: Glucose,Whole Blood 110 mg/dL (75-99)
[2021-08-26] MEDS: ATORVASTATIN 20 MG TAB PO SCH (20:30)
--- NOTE | 2021-08-26 22:12 | P.PN ---
Subjective Progress Note Date: 08/26/21 Principal diagnosis: Left groin and lower extremity wounds Patient is a 77-year-old female with a past medical history significant for left ankle fracture status post a subsequently wound dehiscence requiring debridement culture were negative for the patient did have a left lower extremity revascularization no admitted to the hospital with anemia and some drainage from the wounds. On today's evaluation that is 08/26/2021, the patient remains to be afebrile, the patient is breathing comfortably on room air, the patient denies chest pain shortness of breath or cough , the patient denies abdominal pain. The patient denies pain to the left lower extremity wound area Objective - Vital Signs Vital signs: Vital Signs Temp 98.2 F 08/26/21 08:00 Pulse 83 08/26/21 08:00 Resp 18 08/26/21 08:00 BP 136/62 08/26/21 08:00 Pulse Ox 93 L 08/26/21 08:00 Intake & Output 08/25/21 08/26/21 08/26/21 18:59 06:59 18:59 Intake Total 110 118 Output Total 400 1000 Balance -290 -1000 118 Intake: Oral 110 118 Output: Urine 400 1000 Other: Voiding Method Indwelling Catheter Indwelling Catheter Indwelling Catheter - Exam GENERAL DESCRIPTION: An elderly female lying in bed in no distress RESPIRATORY SYSTEM: Unlabored breathing , decreased breath sounds at bases HEART: S1 S2 regular rate and rhythm , ABDOMEN: Soft , no tenderness EXTREMITIES: Lower extremity wounds are currently dressed - Labs CBC & Chem 7: 08/26/21 06:01 08/26/21 06:01 Labs: Abnormal Lab Results - Last 24 Hours (Table) 08/22/21 08/25/21 08/25/21 Range/Units 15:43 16:43 19:59 RBC (3.80-5.40) m/uL Hgb (11.4-16.0) gm/dL Hct (34.0-46.0) % MCHC (31.0-37.0) g/dL Sodium (137-145) mmol/L BUN (7-17) mg/dL Creatinine (0.52-1.04) mg/dL Glucose (74-99) mg/dL POC Glucose (mg/dL) 175 H 105 H (75-99) mg/dL Calcium (8.4-10.2) mg/dL Urine Appearance Cloudy H (Clear) Urine Protein 1+ H (Negative) Urine Blood Trace H (Negative) Ur Leukocyte Esterase Large H (Negative) Urine RBC 30 H (0-5) /hpf Urine WBC >182 H (0-5) /hpf Urine WBC Clumps Few H (None) /hpf Urine Bacteria Occasional H (None) /hpf Urine Mucus Rare H (None) /hpf Urine Yeast (Budding) Many H (None) /hpf 08/26/21 08/26/21 08/26/21 Range/Units 06:01 06:01 06:04 RBC 2.95 L (3.80-5.40) m/uL Hgb 8.3 L (11.4-16.0) gm/dL Hct 26.9 L (34.0-46.0) % MCHC 30.8 L (31.0-37.0) g/dL Sodium 131 L (137-145) mmol/L BUN 30 H (7-17) mg/dL Creatinine 1.86 H (0.52-1.04) mg/dL Glucose 106 H (74-99) mg/dL POC Glucose (mg/dL) 119 H (75-99) mg/dL Calcium 7.9 L (8.4-10.2) mg/dL Urine Appearance (Clear) Urine Protein (Negative) Urine Blood (Negative) Ur Leukocyte Esterase (Negative) Urine RBC (0-5) /hpf Urine WBC (0-5) /hpf Urine WBC Clumps (None) /hpf Urine Bacteria (None) /hpf Urine Mucus (None) /hpf Urine Yeast (Budding) (None) /hpf 08/26/21 Range/Units 11:37 RBC (3.80-5.40) m/uL Hgb (11.4-16.0) gm/dL Hct (34.0-46.0) % MCHC (31.0-37.0) g/dL Sodium (137-145) mmol/L BUN (7-17) mg/dL Creatinine (0.52-1.04) mg/dL Glucose (74-99) mg/dL POC Glucose (mg/dL) 114 H (75-99) mg/dL Calcium (8.4-10.2) mg/dL Urine Appearance (Clear) Urine Protein (Negative) Urine Blood (Negative) Ur Leukocyte Esterase (Negative) Urine RBC (0-5) /hpf Urine WBC (0-5) /hpf Urine WBC Clumps (None) /hpf Urine Bacteria (None) /hpf Urine Mucus (None) /hpf Urine Yeast (Budding) (None) /hpf Microbiology - Last 24 Hours (Table) 08/22/21 15:43 Urine Culture - Preliminary Urine,Voided Assessment and Plan (1) Non-pressure chronic ulcer of other part of left foot with fat layer exposed Current Visit: No Status: Acute Code(s): L97.522 - NON-PRS CHRONIC ULCER OTH PRT LEFT FOOT W FAT LAYER EXPOSED SNOMED Code(s): 291432728 (2) Non-pressure ulcer of left lower extremity with fat layer exposed Current Visit: No Status: Acute Code(s): L97.922 - NON-PRS CHR ULC UNSP PRT OF L LOW LEG W FAT LAYER EXPOSED SNOMED Code(s): 36940614 (3) Postoperative wound dehiscence Current Visit: No Status: Acute Code(s): T81.31XA - DISRUPTION OF EXTERNAL OPERATION (SURGICAL) WOUND, NEC, INIT SNOMED Code(s): 293602160 Plan: 1patient with a nonhealing wound to the left groin with some slough tissue but no cellulitis, patient to continue local wound care with the Santyl followed by moist dressing change daily. 2patient with left thigh and leg wound with no slough tissue or surrounding redness , patient to continue local wound care with a dry Aquacel silver dressing. 3patient with stage II pressure ulcer of the left heel area with no surrounding cellulitis, patient to continue local wound care with the dry Aquacel silver dressing daily of the pressure. 4patient with a stage I pressure ulcer to the right heel area with no open wound or any cellulitis to continue local care by keeping the area dry and off the pressure We'll continue to monitor the patient closely off antibiotic therapy Time with Patient: Less than 30
[2021-08-27] MEDS: SODIUM CHLORIDE 0.9% 1,000 ML IV SCH ×2 (05:53→11:54)
[2021-08-27 06:29] LABS: Glucose,Whole Blood 95 mg/dL (75-99)
[2021-08-27] MEDS: PANTOPRAZOLE 40 MG TABLET PO SCH (06:36)
[2021-08-27] MEDS: INSULIN ASPART (NovoLOG) 100 UNIT/ML VIAL SQ SCH ×4 (06:36→19:50)
[2021-08-27 08:16] LABS: Calcium 7.9 mg/dL (8.4-10.2); Potassium 4.9 mmol/L (3.5-5.1)
[2021-08-27 09:19] LABS: Methylmalonic Acid 0.36 umol/L (<0.40)
[2021-08-27] MEDS: SODIUM FERRIC GLUCONAT-SUCROSE 125 MG in SODIUM CHLORIDE 0.9% 100 ML IVPB SCH (10:28)
[2021-08-27] MEDS: polyethylene glycoL 3350 17 GM POWD.PACK PO SCH (11:05)
[2021-08-27] MEDS: TAMSULOSIN 0.4 MG CAP.ER.24H PO SCH (11:05)
[2021-08-27] MEDS ORDERED: POLYETHYLENE GLYCOL LYTES SOLN 4,000 ML SOLN.RECON PO ONE (11:08)
[2021-08-27 12:00] LABS: Glucose,Whole Blood 89 mg/dL (75-99)
--- NOTE | 2021-08-27 12:26 | P.PN ---
Subjective Patient is a 70-year-old female with a known history of hypertension, hyperlipidemia, peripheral vascular disease status post left femoropopliteal in situ vein bypass with a left common femoral artery thromboendarterectomy with patch angioplasty on 07/29/2021, nonhealing left ankle fracture wound and previous history of smoking was sent to hospital from the rehab due to low hemoglobin level. Otherwise denied any hematemesis melena. No cough or sputum production. No chest pain or shortness of. No complaints of abdominal pain. Patient is also feeling weak and lethargic. On admission hemoglobin found to be 4.7 and patient was given 1 unit of PRBC. Repeat hemoglobin this morning showed at 7.5. No active bleeding at the left ankle surgical site noted. Other laboratory showed WBC 9.5 hemoglobin 4.7 platelets 411 MCV 87.8 Sodium 133 potassium 4.2 chloride 104 bicarb is 22 BUN 31 and creatinine 2.05 Previous creatinine level 0.93 about a week ago. Calcium 8.1 liver enzymes are not elevated and troponin is 0.140 and albumin 2.5. 08/23/2021 Patient is currently resting in the bed. Awake alert and oriented x3. No complaints of chest pain or shortness of. Tolerating oral diet. Otherwise patient did not have any bowel movement lower the last few days. Denied any complaints of lower extremity pain. Laboratory data showed hemoglobin 7.8 and platelets 341 sodium 132 potassium 4.4 chloride 105 BUN 3020 creatinine improved to 1.94. Patient is being continued on IV hydration with normal saline. Troponin trending down to 0.114. No complaints of chest pain or shortness breath. No headache or dizziness or lightheadedness. Procalcitonin 0.18 and CRP levels 4.5. ID has seen the patient and continue with local wound care and moist dressing change daily. No further antibiotic therapy recommended. Hematology was consulted and anemia and hemolysis work-up was ordered. 08/24/2021 Patient is currently resting alert. Recollecting when x3. Denied any complaints of chest pain or shortness of breath. No headache or dizziness or lightheadedness. Leg pain is improved. No active bleeding noted. Otherwise patient is having constipation and is being continued softeners and laxatives. Patient has been afebrile. Lab data showed WBC 7.1 hemoglobin improved to 8.1 platelets 389 sodium 132, potassium 4.3 chloride 103 BUN 3020 creatinine 1.82 Calcium 8.0. Patient is iron deficient. 08/25/2021 Patient is currently lying in the bed. Awake alert and oriented. No complaints of chest pain or shortness of breath. Denies any leg pain. No fever no chills. Patient is being current on left lower extremity wound care. Otherwise laboratory data showed WBC 8.2 hemoglobin 7.6 and platelets 399. Patient is being continued on IV supplementation IV iron. Sodium 130 potassium 4.6 chloride 103 BUN 34 and creatinine 1.90 also on IV hydration. Tolerating oral diet slowly. General surgery was consulted for evaluation of GI bleeding. ID and hematology is on board. 08/26/2021 She doesn't have any more bleeding patient is now without stools or blood in the stools. Patient is clinically doing well. Patient will undergo colonoscopy and upper GI endoscopy. Patient's hemoglobin remained stable creatinine remains stable patient is off vancomycin. 08/27/2021 Patient will undergo EGD and colonoscopy today. Patient's hemoglobin remained stable serum sodium is improving. Patient today is receiving IV fluids with. Patient's the creatinine is improving presently 1.6 which is not baseline yet because of which I'll continue with IV fluids today recheck basic metabolic profile tomorrow possibility of discharge tomorrow. - Exam PHYSICAL EXAMINATION: Patient is lying in the bed comfortably, no acute distress, awake alert and oriented.. Lethargic and drowsy. HEENT: Normocephalic. Neck is supple. Pupils reactive. Nostrils clear. Oral cavity is moist. Neck reveals no JVD, carotid bruits, or thyromegaly. CHEST EXAMINATION: Trachea is central. Symmetrical expansion. Bibasilar diminished sounds, lung inigeuz clear to auscultation and percussion. CARDIAC: Normal S1, S2 with no gallops. No murmurs ABDOMEN: Soft. Bowel sounds normal. No organomegaly. No abdominal bruits. Extremities: reveal no edema. No clubbing or cyanosis Neurologically awake, alert, oriented x3 with well-coordinated movements. No focal deficits noted Skin: No rash or skin lesions. Psychiatric: Cooperative. Nonsuicidal Musculoskeletal: No joint swelling or deformity. Normal range of motion. Left ankle surgical site is bandaged. Assessment and Plan Assessment: Symptomatic anemia with hemoglobin 4.7 on admission. s/p PRBC transfusion. hb 7.6 . No evidence of acute GI bleed at this time patient will undergo upper GI endoscopy and colonoscopy Iron deficiency anemia syrinx at [facility] Acute kidney injury likely prerenal. possible AIN with pt being on vancomycin. His serum creatinine remains stable. And proving now Elevated troponin. likely demand ischemia. Hypovolemic hyponatremia improving Nonhealing left ankle ulcer stage 2. No active bleeding noted. Status post left femoropopliteal in situ vein graft, left, femoral artery thromboendarterectomy with patch angioplasty on 07/29/2021. Hypertension Hyperlipidemia Diabetes type 2 [id number] History of [place] Previous history of smoking Objective - Vital Signs Vital signs: Vital Signs Temp 97.9 F 08/27/21 11:38 Pulse 73 08/27/21 11:38 Resp 18 08/27/21 11:38 BP 130/63 08/27/21 11:38 Pulse Ox 98 08/27/21 11:38 Intake & Output 08/26/21 08/27/21 08/27/21 18:59 06:59 18:59 Intake Total 218 480 Output Total 1250 1150 Balance -1032 -670 Intake: Intake, IV Titration 100 480 Amount Sodium Chloride 0.9% 1, 480 000 ml @ 80 mls/hr IV . [id number] [facility] Rx#:[id number] Sodium Ferric Gluconat- 100 Sucrose 125 mg In Sodium Chloride 0.9% 100 ml @ 100 mls/hr IVPB DAILY [facility] Rx#:[id number] Oral 118 Output: Urine 1250 1150 Other: Voiding Method Indwelling Catheter Indwelling Catheter Indwelling Catheter # Bowel Movements 0 - Labs CBC & Chem 7: 08/26/21 06:01 08/27/21 07:24 Labs: Abnormal Lab Results - Last 24 Hours (Table) 08/24/21 08/24/21 08/26/21 Range/Units 07:52 07:52 16:31 Sodium (137-145) mmol/L BUN (7-17) mg/dL Creatinine (0.52-1.04) mg/dL POC Glucose (mg/dL) 103 H (75-99) mg/dL Calcium (8.4-10.2) mg/dL RBC Folate 1,067 H (280 - 791) ng/mL Free [place] LC, Quant 9.30 H (0.33-1.94) mg/dL Free Lambda LC, Quant 9.79 H (0.57-2.63) mg/dL 08/26/21 08/27/21 Range/Units 20:17 07:24 Sodium 133 L (137-145) mmol/L BUN 27 H (7-17) mg/dL Creatinine 1.65 H (0.52-1.04) mg/dL POC Glucose (mg/dL) 110 H (75-99) mg/dL Calcium 7.9 L (8.4-10.2) mg/dL RBC Folate (280 - 791) ng/mL Free [place] LC, Quant (0.33-1.94) mg/dL Free Lambda LC, Quant (0.57-2.63) mg/dL Microbiology - Last 24 Hours (Table) 08/22/21 15:43 Urine Culture - Preliminary Urine,Voided Yeast species
--- NOTE | 2021-08-27 12:59 | P.PN ---
Subjective Progress Note Date: 08/27/21 CHIEF COMPLAINT: Anemia HISTORY OF PRESENT ILLNESS: 70-year-old female presented to the emergency department from rehab with weakness and anemia with a hemoglobin of 4.7 on admission. She is status post transfusion. Patient was scheduled for EGD and colonoscopy today however patient had refused to finish her prep due to taste. Hemoglobin is currently stable at 8.3. Patient is denying any blood in her stool, states she has had some that have been dark. Denies any abdominal pain, nausea or vomiting. PHYSICAL EXAM: VITAL SIGNS: Reviewed. GENERAL: Well-developed in no acute distress. HEENT: No sclera icterus. Extraocular movements grossly intact. Moist buccal mucosa. Head is atraumatic, normocephalic. ABDOMEN: Soft. Nondistended. Nontender. NEUROLOGIC: Alert and oriented. Cranial nerves II through XII grossly intact. ASSESSMENT: 1. Anemia 2. Weakness 3. Recent left lower extremity revascularization on Plavix PLAN: 1. Clear liquid diet 2. Avoid NSAIDs 3. Daily CBC, transfuse per protocol 4. Protonix 40 mg daily GI prophylaxis 5. Bowel prep, will change to Nulytely 6. Will plan EGD and colonoscopy Thank you for this consultation, we will continue to follow. The impression and plan of care has been dictated as directed. I performed a history and examination of this patient, discussed the same with the dictator. I agree with the dictator's note ,documented as a scribe. Any additional findings or plans will be noted. Objective - Vital Signs Vital signs: Vital Signs Temp 97.0 F L 08/27/21 07:41 Pulse 75 08/27/21 07:41 Resp 20 08/27/21 07:41 BP 137/65 08/27/21 07:41 Pulse Ox 95 08/27/21 07:41 Intake & Output 08/26/21 08/27/21 08/27/21 18:59 06:59 18:59 Intake Total 218 480 Output Total 1250 1150 Balance -1032 670 Intake: Intake, IV Titration 100 480 Amount Sodium Chloride 0.9% 1, 480 000 ml @ 80 mls/hr IV . [id number] [facility] Rx#:[id number] Sodium Ferric Gluconat- 100 Sucrose 125 mg In Sodium Chloride 0.9% 100 ml @ 100 mls/hr IVPB DAILY [facility] Rx#:[id number] Oral 118 Output: Urine 1250 1150 Other: Voiding Method Indwelling Catheter Indwelling Catheter Indwelling Catheter # Bowel Movements 0 - Labs CBC & Chem 7: 08/26/21 06:01 08/27/21 07:24 Labs: Abnormal Lab Results - Last 24 Hours (Table) 08/24/21 08/24/21 08/26/21 Range/Units 07:52 07:52 11:37 Sodium (137-145) mmol/L BUN (7-17) mg/dL Creatinine (0.52-1.04) mg/dL POC Glucose (mg/dL) 114 H (75-99) mg/dL Calcium (8.4-10.2) mg/dL RBC Folate 1,067 H (280 - 791) ng/mL Free [place] LC, Quant 9.30 H (0.33-1.94) mg/dL Free Lambda LC, Quant 9.79 H (0.57-2.63) mg/dL 08/26/21 08/26/21 08/27/21 Range/Units 16:31 20:17 07:24 Sodium 133 L (137-145) mmol/L BUN 27 H (7-17) mg/dL Creatinine 1.65 H (0.52-1.04) mg/dL POC Glucose (mg/dL) 103 H 110 H (75-99) mg/dL Calcium 7.9 L (8.4-10.2) mg/dL RBC Folate (280 - 791) ng/mL Free [place] LC, Quant (0.33-1.94) mg/dL Free Lambda LC, Quant (0.57-2.63) mg/dL Microbiology - Last 24 Hours (Table) 08/22/21 15:43 Urine Culture - Preliminary Urine,Voided Yeast species
--- NOTE | 2021-08-27 16:28 | P.PN ---
Subjective Progress Note Date: 08/27/21 Principal diagnosis: normocytic anemia In follow-up today patient is prepping for endoscopy. She denies overt bleeding. She has tolerated IV iron well. Objective - Vital Signs Vital signs: Vital Signs Temp 97.9 F 08/27/21 11:38 Pulse 73 08/27/21 11:38 Resp 18 08/27/21 11:38 BP 130/63 08/27/21 11:38 Pulse Ox 98 08/27/21 11:38 Intake & Output 08/26/21 08/27/21 08/27/21 18:59 06:59 18:59 Intake Total 218 480 Output Total 1250 1150 875 Balance -6862 -872 -767 Intake: Intake, IV Titration 100 480 Amount Sodium Chloride 0.9% 1, 480 000 ml @ 80 mls/hr IV . [id number] [facility] Rx#:[id number] Sodium Ferric Gluconat- 100 Sucrose 125 mg In Sodium Chloride 0.9% 100 ml @ 100 mls/hr IVPB DAILY [facility] Rx#:[id number] Oral 118 Output: Urine 1250 1150 875 Other: Voiding Method Indwelling Catheter Indwelling Catheter Indwelling Catheter # Bowel Movements 0 - Constitutional General appearance: Present: average body habitus, cooperative, no acute distress - EENT Eyes: Present: anicteric sclerae, EOMI ENT: Present: hearing grossly normal - Respiratory Details: respirations even and unlabored - Integumentary Integumentary: Present: pale - Musculoskeletal Musculoskeletal: Present: generalized weakness - Psychiatric Psychiatric: Present: A&O x's 3, appropriate affect, intact judgment & insight - Labs CBC & Chem 7: 08/26/21 06:01 08/27/21 07:24 Labs: Abnormal Lab Results - Last 24 Hours (Table) 08/26/21 08/26/21 08/27/21 Range/Units 16:31 20:17 07:24 Sodium 133 L (137-145) mmol/L BUN 27 H (7-17) mg/dL Creatinine 1.65 H (0.52-1.04) mg/dL POC Glucose (mg/dL) 103 H 110 H (75-99) mg/dL Calcium 7.9 L (8.4-10.2) mg/dL Microbiology - Last 24 Hours (Table) 08/22/21 15:43 Urine Culture - Final Urine,Voided Bettina albicans Assessment and Plan (1) Anemia Narrative/Plan: Iron deficiency, provided with IV iron. GI evaluation planned, patient is prepping, pending results. Has chronic wounds, chronic inflammation and a degree of chronic kidney disease that may also be contributing to patient's anemia. She had 2 units of blood on admit for hemoglobin of 4.7. Hemoglobin has remained stable since then. Follow-up with Hematology in the outpatient setting to monitor iron studies and provide parenteral iron as needed. Current Visit: Yes Status: Acute Priority: Medium Code(s): D64.9 - ANEMIA, UNSPECIFIED SNOMED Code(s): 691609978
[2021-08-27 16:30] LABS: Glucose,Whole Blood 107 mg/dL (75-99)
[2021-08-27] MEDS: COLLAGENASE 250 UNIT/GM OINTMENT 30 GM TUBE TOPICAL SCH ×2 (17:08→19:53)
[2021-08-27 19:50] LABS: Glucose,Whole Blood 130 mg/dL (75-99)
[2021-08-27] MEDS: ATORVASTATIN 20 MG TAB PO SCH (19:51)
[2021-08-27] MEDS: HYDROcodone/APAP 5-325MG 1 EACH TAB PO PRN (19:51)
[2021-08-27 20:22] LABS: Glucose,Whole Blood 111 mg/dL (75-99)
--- NOTE | 2021-08-27 23:10 | P.PN ---
Subjective Progress Note Date: 08/27/21 Principal diagnosis: Left groin and lower extremity wounds Patient is a 77-year-old female with a past medical history significant for left ankle fracture status post a subsequently wound dehiscence requiring debridement culture were negative for the patient did have a left lower extremity revascularization no admitted to the hospital with anemia and some drainage from the wounds. On today's evaluation that is 08/27/2021, the patient is afebrile, the patient is breathing comfortably on room air, the patient denies chest pain shortness of breath or cough , the patient denies abdominal pain and no diarrhea. The patient denies pain to the left lower extremity wound area Objective - Vital Signs Vital signs: Vital Signs Temp 97.9 F 08/27/21 11:38 Pulse 73 08/27/21 11:38 Resp 18 08/27/21 11:38 BP 130/63 08/27/21 11:38 Pulse Ox 98 08/27/21 11:38 Intake & Output 08/26/21 08/27/21 08/27/21 18:59 06:59 18:59 Intake Total 218 480 Output Total 1250 1150 Balance -1032 -670 Intake: Intake, IV Titration 100 480 Amount Sodium Chloride 0.9% 1, 480 000 ml @ 80 mls/hr IV . [id number] [facility] Rx#:[id number] Sodium Ferric Gluconat- 100 Sucrose 125 mg In Sodium Chloride 0.9% 100 ml @ 100 mls/hr IVPB DAILY [facility] Rx#:[id number] Oral 118 Output: Urine 1250 1150 Other: Voiding Method Indwelling Catheter Indwelling Catheter Indwelling Catheter # Bowel Movements 0 - Exam GENERAL DESCRIPTION: An elderly female lying in bed in no distress RESPIRATORY SYSTEM: Unlabored breathing , decreased breath sounds at bases HEART: S1 S2 regular rate and rhythm , ABDOMEN: Soft , no tenderness EXTREMITIES: Lower extremity wounds are currently dressed - Labs CBC & Chem 7: 08/26/21 06:01 08/27/21 07:24 Labs: Abnormal Lab Results - Last 24 Hours (Table) 08/24/21 08/24/21 08/26/21 Range/Units 07:52 07:52 16:31 Sodium (137-145) mmol/L BUN (7-17) mg/dL Creatinine (0.52-1.04) mg/dL POC Glucose (mg/dL) 103 H (75-99) mg/dL Calcium (8.4-10.2) mg/dL RBC Folate 1,067 H (280 - 791) ng/mL Free [place] LC, Quant 9.30 H (0.33-1.94) mg/dL Free Lambda LC, Quant 9.79 H (0.57-2.63) mg/dL 08/26/21 08/27/21 Range/Units 20:17 07:24 Sodium 133 L (137-145) mmol/L BUN 27 H (7-17) mg/dL Creatinine 1.65 H (0.52-1.04) mg/dL POC Glucose (mg/dL) 110 H (75-99) mg/dL Calcium 7.9 L (8.4-10.2) mg/dL RBC Folate (280 - 791) ng/mL Free [place] LC, Quant (0.33-1.94) mg/dL Free Lambda LC, Quant (0.57-2.63) mg/dL Microbiology - Last 24 Hours (Table) 08/22/21 15:43 Urine Culture - Preliminary Urine,Voided Yeast species Assessment and Plan (1) Non-pressure chronic ulcer of other part of left foot with fat layer exposed Current Visit: No Status: Acute Code(s): L97.522 - NON-PRS CHRONIC ULCER OTH PRT LEFT FOOT W FAT LAYER EXPOSED SNOMED Code(s): 071463770 (2) Non-pressure ulcer of left lower extremity with fat layer exposed Current Visit: No Status: Acute Code(s): L97.922 - NON-PRS CHR ULC UNSP PRT OF L LOW LEG W FAT LAYER EXPOSED SNOMED Code(s): 07809024 (3) Postoperative wound dehiscence Current Visit: No Status: Acute Code(s): T81.31XA - DISRUPTION OF EXTERNAL OPERATION (SURGICAL) WOUND, NEC, INIT SNOMED Code(s): 657926123 Plan: 1patient with a nonhealing wound to the left groin with some slough tissue but no cellulitis, patient to continue local wound care with the Santyl followed by moist dressing change daily. 2patient with left thigh and leg wound with no slough tissue or surrounding redness , patient to continue local wound care with a dry Aquacel silver dressing. 3patient with stage II pressure ulcer of the left heel area with no surrounding cellulitis, patient to continue local wound care with the dry Aquacel silver dressing daily of the pressure. 4patient with a stage I pressure ulcer to the right heel area with no open wound or any cellulitis to continue local care by keeping the area dry and off the pressure , patient seemed to be doing well off antibiotics and will continue monitor the patient closely off antibiotic therapy Time with Patient: Less than 30
[2021-08-28 06:10] LABS: Glucose,Whole Blood 90 mg/dL (75-99)
[2021-08-28] MEDS: INSULIN ASPART (NovoLOG) 100 UNIT/ML VIAL SQ SCH ×4 (06:19→19:20)
[2021-08-28] MEDS: SODIUM CHLORIDE 0.9% 1,000 ML IV SCH ×2 (06:19→19:24)
[2021-08-28] MEDS: PANTOPRAZOLE 40 MG TABLET PO SCH (06:22)
[2021-08-28] MEDS ORDERED: MIDAZOLAM 2 MG/2 ML VIAL IV PRN (07:00)
[2021-08-28] MEDS: TAMSULOSIN 0.4 MG CAP.ER.24H PO SCH (09:26)
[2021-08-28] MEDS: SODIUM FERRIC GLUCONAT-SUCROSE 125 MG in SODIUM CHLORIDE 0.9% 100 ML IVPB SCH (09:26)
[2021-08-28] MEDS: polyethylene glycoL 3350 17 GM POWD.PACK PO SCH (09:26)
--- NOTE | 2021-08-28 10:08 | P.PN ---
Subjective Progress Note Date: 08/28/21 CHIEF COMPLAINT: Anemia HISTORY OF PRESENT ILLNESS: 70-year-old female presented to the emergency department from rehab with weakness and anemia with a hemoglobin of 4.7 on admission. She is status post transfusion. The patient denies any bowel movements or any signs or symptoms of GI bleed.. She is scheduled to undergo EGD and colonoscopy tomorrow. She was supposed to prep yesterday with Nulytley, however patient only took a very small amount. She is willing and agreeable to continue with the nNulytely prep today. She will remain on clear liquid diet. Hematology is following. She continues to receive IV iron. PHYSICAL EXAM: VITAL SIGNS: Reviewed. GENERAL: Well-developed in no acute distress. HEENT: No sclera icterus. Extraocular movements grossly intact. Moist buccal mucosa. Head is atraumatic, normocephalic. ABDOMEN: Soft. Nondistended. Nontender. NEUROLOGIC: Alert and oriented. Cranial nerves II through XII grossly intact. ASSESSMENT: 1. Anemia 2. Weakness 3. Recent left lower extremity revascularization on Plavix PLAN: 1. Clear liquid diet, nothing by mouth after midnight 2. Avoid NSAIDs 3. Daily CBC, transfuse per protocol 4. Protonix 40 mg daily GI prophylaxis 5. Bowel prep, will change to Nulytely 6. Will plan EGD and colonoscopy Thank you for this consultation, we will continue to follow. The impression and plan of care has been dictated as directed. I performed a history and examination of this patient, discussed the same with the dictator. I agree with the dictator's note ,documented as a scribe. Any additional findings or plans will be noted. Objective - Vital Signs Vital signs: Vital Signs Temp 99 F 08/28/21 07:43 Pulse 77 08/28/21 07:43 Resp 16 08/28/21 07:43 BP 134/64 08/28/21 07:43 Pulse Ox 95 08/28/21 08:19 Intake & Output 08/27/21 08/28/21 08/28/21 18:59 06:59 18:59 Intake Total 240 Output Total 875 1120 Balance -635 -1120 Intake: Oral 240 Output: Urine 875 1120 Other: Voiding Method Indwelling Catheter Indwelling Catheter # Bowel Movements 0 - Labs CBC & Chem 7: 08/26/21 06:01 08/27/21 07:24 Labs: Abnormal Lab Results - Last 24 Hours (Table) 08/27/21 08/27/21 08/27/21 Range/Units 16:25 19:49 20:21 POC Glucose (mg/dL) 107 H 130 H 111 H (75-99) mg/dL Microbiology - Last 24 Hours (Table) 08/22/21 15:43 Urine Culture - Final Urine,Voided Bettina albicans
[2021-08-28 10:33] LABS: HCT 25.6 % (34.0-46.0); HGB 7.9 gm/dL (11.4-16.0); Hypochromasia Marked; MCHC 30.8 g/dL (31.0-37.0); Mean Platelet Volume 7.1; Platelet Count 504 k/uL (150-450); Poikilocytosis Slight; RBC 2.81 m/uL (3.80-5.40); RDW 15.1 % (11.5-15.5); WBC 8.8 k/uL (3.8-10.6)
[2021-08-28 10:38] LABS: Potassium 4.6 mmol/L (3.5-5.1)
--- NOTE | 2021-08-28 11:22 | P.PN ---
Subjective Patient is a 70-year-old female with a known history of hypertension, hyperlipidemia, peripheral vascular disease status post left femoropopliteal in situ vein bypass with a left common femoral artery thromboendarterectomy with patch angioplasty on 07/29/2021, nonhealing left ankle fracture wound and previous history of smoking was sent to hospital from the rehab due to low hemoglobin level. Otherwise denied any hematemesis melena. No cough or sputum production. No chest pain or shortness of. No complaints of abdominal pain. Patient is also feeling weak and lethargic. On admission hemoglobin found to be 4.7 and patient was given 1 unit of PRBC. Repeat hemoglobin this morning showed at 7.5. No active bleeding at the left ankle surgical site noted. Other laboratory showed WBC 9.5 hemoglobin 4.7 platelets 411 MCV 87.8 Sodium 133 potassium 4.2 chloride 104 bicarb is 22 BUN 31 and creatinine 2.05 Previous creatinine level 0.93 about a week ago. Calcium 8.1 liver enzymes are not elevated and troponin is 0.140 and albumin 2.5. 08/23/2021 Patient is currently resting in the bed. Awake alert and oriented x3. No complaints of chest pain or shortness of. Tolerating oral diet. Otherwise patient did not have any bowel movement lower the last few days. Denied any complaints of lower extremity pain. Laboratory data showed hemoglobin 7.8 and platelets 341 sodium 132 potassium 4.4 chloride 105 BUN 3020 creatinine improved to 1.94. Patient is being continued on IV hydration with normal saline. Troponin trending down to 0.114. No complaints of chest pain or shortness breath. No headache or dizziness or lightheadedness. Procalcitonin 0.18 and CRP levels 4.5. ID has seen the patient and continue with local wound care and moist dressing change daily. No further antibiotic therapy recommended. Hematology was consulted and anemia and hemolysis work-up was ordered. 08/24/2021 Patient is currently resting alert. Recollecting when x3. Denied any complaints of chest pain or shortness of breath. No headache or dizziness or lightheadedness. Leg pain is improved. No active bleeding noted. Otherwise patient is having constipation and is being continued softeners and laxatives. Patient has been afebrile. Lab data showed WBC 7.1 hemoglobin improved to 8.1 platelets 389 sodium 132, potassium 4.3 chloride 103 BUN 3020 creatinine 1.82 Calcium 8.0. Patient is iron deficient. 08/25/2021 Patient is currently lying in the bed. Awake alert and oriented. No complaints of chest pain or shortness of breath. Denies any leg pain. No fever no chills. Patient is being current on left lower extremity wound care. Otherwise laboratory data showed WBC 8.2 hemoglobin 7.6 and platelets 399. Patient is being continued on IV supplementation IV iron. Sodium 130 potassium 4.6 chloride 103 BUN 34 and creatinine 1.90 also on IV hydration. Tolerating oral diet slowly. General surgery was consulted for evaluation of GI bleeding. ID and hematology is on board. 08/26/2021 She doesn't have any more bleeding patient is now without stools or blood in the stools. Patient is clinically doing well. Patient will undergo colonoscopy and upper GI endoscopy. Patient's hemoglobin remained stable creatinine remains stable patient is off vancomycin. 08/27/2021 Patient will undergo EGD and colonoscopy today. Patient's hemoglobin remained stable serum sodium is improving. Patient today is receiving IV fluids with. Patient's the creatinine is improving presently 1.6 which is not baseline yet because of which I'll continue with IV fluids today recheck basic metabolic profile tomorrow possibility of discharge tomorrow. 08/28/2021 Because of poor prep patient was unable to undergo colonoscopy yesterday patient is doing prep today. After colonoscopy patient probably can be discharged tomorrow patient is otherwise medically stable creatinine is slowly improving patient renal failure is secondary to probably nonsteroidal anti-inflammatory medication, vancomycin and dehydration patient remains on IV fluids which I'll cut it down to 75 mL per hour. Constitutional: Denied any fatigue denied any fever. Cardio vascular: denied any chest pain, palpitations Gastrointestinal denied any nausea vomiting Pulmonary: Denied any shortness of breath cough Neurologic denied any new focal deficits All inpatient medications were reviewed and appropriate changes in these medications as dictated in the interval history and assessment and plan. - Exam PHYSICAL EXAMINATION: Patient is lying in the bed comfortably, no acute distress, awake alert and oriented.. Lethargic and drowsy. HEENT: Normocephalic. Neck is supple. Pupils reactive. Nostrils clear. Oral cavity is moist. Neck reveals no JVD, carotid bruits, or thyromegaly. CHEST EXAMINATION: Trachea is central. Symmetrical expansion. Bibasilar diminished sounds, lung iniguez clear to auscultation and percussion. CARDIAC: Normal S1, S2 with no gallops. No murmurs ABDOMEN: Soft. Bowel sounds normal. No organomegaly. No abdominal bruits. Extremities: reveal no edema. No clubbing or cyanosis Neurologically awake, alert, oriented x3 with well-coordinated movements. No focal deficits noted Skin: No rash or skin lesions. Psychiatric: Cooperative. Nonsuicidal Musculoskeletal: No joint swelling or deformity. Normal range of motion. Left ankle surgical site is bandaged. Assessment and Plan Assessment: Symptomatic anemia with hemoglobin 4.7 on admission. s/p PRBC transfusion. hb 7.6 . No evidence of acute GI bleed at this time patient will undergo upper GI endoscopy and colonoscopy Iron deficiency anemia received IV iron Acute kidney injury likely prerenal. possible AIN with pt being on vancomycin, with contribution from nonsteroidal anti-inflammatory medications. His serum creatinine remains stable. Slow improvement. Elevated troponin. likely demand ischemia. Hypovolemic hyponatremia improving Nonhealing left ankle ulcer stage 2. No active bleeding noted. Status post left femoropopliteal in situ vein graft, left, femoral artery thromboendarterectomy with patch angioplasty on 07/29/2021. Hypertension Hyperlipidemia Diabetes type 2 [id number] History of [place] Previous history of smoking Objective - Vital Signs Vital signs: Vital Signs Temp 99 F 08/28/21 07:43 Pulse 77 08/28/21 07:43 Resp 16 08/28/21 07:43 BP 134/64 08/28/21 07:43 Pulse Ox 95 08/28/21 08:19 Intake & Output 08/27/21 08/28/21 08/28/21 18:59 06:59 18:59 Intake Total 240 Output Total 875 1120 Balance -635 -1120 Intake: Oral 240 Output: Urine 875 1120 Other: Voiding Method Indwelling Catheter Indwelling Catheter Indwelling Catheter # Bowel Movements 0 - Labs CBC & Chem 7: 08/28/21 09:14 08/28/21 09:14 Labs: Abnormal Lab Results - Last 24 Hours (Table) 08/27/21 08/27/21 08/27/21 Range/Units 16:25 19:49 20:21 RBC (3.80-5.40) m/uL Hgb (11.4-16.0) gm/dL Hct (34.0-46.0) % MCHC (31.0-37.0) g/dL Plt Count (150-450) k/uL Sodium (137-145) mmol/L Carbon Dioxide (22-30) mmol/L BUN (7-17) mg/dL Creatinine (0.52-1.04) mg/dL POC Glucose (mg/dL) 107 H 130 H 111 H (75-99) mg/dL Calcium (8.4-10.2) mg/dL 08/28/21 08/28/21 Range/Units 09:14 09:14 RBC 2.81 L (3.80-5.40) m/uL Hgb 7.9 L (11.4-16.0) gm/dL Hct 25.6 L (34.0-46.0) % MCHC 30.8 L (31.0-37.0) g/dL Plt Count 504 H (150-450) k/uL Sodium 132 L (137-145) mmol/L Carbon Dioxide 21 L (22-30) mmol/L BUN 25 H (7-17) mg/dL Creatinine 1.57 H (0.52-1.04) mg/dL POC Glucose (mg/dL) (75-99) mg/dL Calcium 8.0 L (8.4-10.2) mg/dL Microbiology - Last 24 Hours (Table) 08/22/21 15:43 Urine Culture - Final Urine,Voided Bettina albicans
[2021-08-28 11:33] LABS: Glucose,Whole Blood 95 mg/dL (75-99)
--- NOTE | 2021-08-28 12:26 | P.PN ---
Subjective Progress Note Date: 08/28/21 Objective - Vital Signs Vital signs: Vital Signs Temp 98.1 F 08/28/21 11:48 Pulse 75 08/28/21 11:48 Resp 18 08/28/21 11:48 BP 133/61 08/28/21 11:48 Pulse Ox 98 08/28/21 11:48 Intake & Output 08/27/21 08/28/21 08/28/21 18:59 06:59 18:59 Intake Total 240 Output Total 875 1120 Balance -635 -1120 Intake: Oral 240 Output: Urine 875 1120 Other: Voiding Method Indwelling Catheter Indwelling Catheter Indwelling Catheter # Bowel Movements 0 - Exam - Constitutional General appearance: Present: no acute distress - EENT Eyes: Present: EOMI ENT: Present: hearing grossly normal, normal oropharynx - Respiratory Respiratory: bilateral: CTA - Cardiovascular Rhythm: regular Heart sounds: normal: S1, S2 - Gastrointestinal General gastrointestinal: Present: normal bowel sounds, soft - Integumentary Integumentary Comment(s): Left lower extremity wound and incisions, currently bandaged - Neurologic Neurologic: Present: CNII-XII intact - Musculoskeletal Musculoskeletal: Present: generalized weakness - Psychiatric Psychiatric: Present: A&O x's 3 - Labs CBC & Chem 7: 08/28/21 09:14 08/28/21 09:14 Labs: Abnormal Lab Results - Last 24 Hours (Table) 08/27/21 08/27/21 08/27/21 Range/Units 16:25 19:49 20:21 RBC (3.80-5.40) m/uL Hgb (11.4-16.0) gm/dL Hct (34.0-46.0) % MCHC (31.0-37.0) g/dL Plt Count (150-450) k/uL Sodium (137-145) mmol/L Carbon Dioxide (22-30) mmol/L BUN (7-17) mg/dL Creatinine (0.52-1.04) mg/dL POC Glucose (mg/dL) 107 H 130 H 111 H (75-99) mg/dL Calcium (8.4-10.2) mg/dL 08/28/21 08/28/21 Range/Units 09:14 09:14 RBC 2.81 L (3.80-5.40) m/uL Hgb 7.9 L (11.4-16.0) gm/dL Hct 25.6 L (34.0-46.0) % MCHC 30.8 L (31.0-37.0) g/dL Plt Count 504 H (150-450) k/uL Sodium 132 L (137-145) mmol/L Carbon Dioxide 21 L (22-30) mmol/L BUN 25 H (7-17) mg/dL Creatinine 1.57 H (0.52-1.04) mg/dL POC Glucose (mg/dL) (75-99) mg/dL Calcium 8.0 L (8.4-10.2) mg/dL Microbiology - Last 24 Hours (Table) 08/22/21 15:43 Urine Culture - Final Urine,Voided Bettina albicans Assessment and Plan (1) Acute renal insufficiency Current Visit: Yes Status: Acute Code(s): N28.9 - DISORDER OF KIDNEY AND URETER, UNSPECIFIED SNOMED Code(s): 792974921 (2) Anemia Narrative/Plan: Hemoglobin 7.9 today, continue daily CBC monitoring. Nephrology following. GI evaluation still needed, plan is tomorrow Current Visit: Yes Status: Acute Priority: Medium Code(s): D64.9 - ANEMIA, UNSPECIFIED SNOMED Code(s): 482891535
[2021-08-28 15:38] LABS: Protein, Total 5.4 g/dL (6.2-8.2)
--- NOTE | 2021-08-28 16:27 | P.PN ---
Subjective Progress Note Date: 08/28/21 Principal diagnosis: Left groin and lower extremity wounds Patient is a 77-year-old female with a past medical history significant for left ankle fracture status post a subsequently wound dehiscence requiring debridement culture were negative for the patient did have a left lower extremity revascularization no admitted to the hospital with anemia and some drainage from the wounds. On today's evaluation that is 08/28/2021, the patient remains to be afebrile, the patient is breathing comfortably on room air, the patient denies chest pain shortness of breath or cough , the patient denies abdominal pain and no diarrhea. The patient denies pain to the left lower extremity wound area, the patient denies any burning or frequency of urine Objective - Vital Signs Vital signs: Vital Signs Temp 98.1 F 08/28/21 11:48 Pulse 75 08/28/21 11:48 Resp 18 08/28/21 11:48 BP 133/61 08/28/21 11:48 Pulse Ox 98 08/28/21 11:48 Intake & Output 08/27/21 08/28/21 08/28/21 18:59 06:59 18:59 Intake Total 240 Output Total 875 1120 Balance -635 -1120 Intake: Oral 240 Output: Urine 875 1120 Other: Voiding Method Indwelling Catheter Indwelling Catheter Indwelling Catheter # Bowel Movements 0 - Exam GENERAL DESCRIPTION: An elderly female lying in bed in no distress RESPIRATORY SYSTEM: Unlabored breathing , decreased breath sounds at bases HEART: S1 S2 regular rate and rhythm , ABDOMEN: Soft , no tenderness EXTREMITIES: Lower extremity wounds are currently dressed - Labs CBC & Chem 7: 08/28/21 09:14 08/28/21 09:14 Labs: Abnormal Lab Results - Last 24 Hours (Table) 08/27/21 08/27/21 08/27/21 Range/Units 16:25 19:49 20:21 RBC (3.80-5.40) m/uL Hgb (11.4-16.0) gm/dL Hct (34.0-46.0) % MCHC (31.0-37.0) g/dL Plt Count (150-450) k/uL Sodium (137-145) mmol/L Carbon Dioxide (22-30) mmol/L BUN (7-17) mg/dL Creatinine (0.52-1.04) mg/dL POC Glucose (mg/dL) 107 H 130 H 111 H (75-99) mg/dL Calcium (8.4-10.2) mg/dL 08/28/21 08/28/21 Range/Units 09:14 09:14 RBC 2.81 L (3.80-5.40) m/uL Hgb 7.9 L (11.4-16.0) gm/dL Hct 25.6 L (34.0-46.0) % MCHC 30.8 L (31.0-37.0) g/dL Plt Count 504 H (150-450) k/uL Sodium 132 L (137-145) mmol/L Carbon Dioxide 21 L (22-30) mmol/L BUN 25 H (7-17) mg/dL Creatinine 1.57 H (0.52-1.04) mg/dL POC Glucose (mg/dL) (75-99) mg/dL Calcium 8.0 L (8.4-10.2) mg/dL Microbiology - Last 24 Hours (Table) 08/22/21 15:43 Urine Culture - Final Urine,Voided Bettina albicans Assessment and Plan (1) Non-pressure chronic ulcer of other part of left foot with fat layer exposed Current Visit: No Status: Acute Code(s): L97.522 - NON-PRS CHRONIC ULCER OTH PRT LEFT FOOT W FAT LAYER EXPOSED SNOMED Code(s): 426242563 (2) Non-pressure ulcer of left lower extremity with fat layer exposed Current Visit: No Status: Acute Code(s): L97.922 - NON-PRS CHR ULC UNSP PRT OF L LOW LEG W FAT LAYER EXPOSED SNOMED Code(s): 79579091 (3) Postoperative wound dehiscence Current Visit: No Status: Acute Code(s): T81.31XA - DISRUPTION OF EXTERNAL OPERATION (SURGICAL) WOUND, NEC, INIT SNOMED Code(s): 820773603 Plan: 1patient with a nonhealing wound to the left groin with some slough tissue but no cellulitis, patient to continue local wound care with the Santyl followed by moist dressing change daily. 2patient with left thigh and leg wound with no slough tissue or surrounding redness , patient to continue local wound care with a dry Aquacel silver dressing. 3patient with stage II pressure ulcer of the left heel area with no surrounding cellulitis, patient to continue local wound care with the dry Aquacel silver d ressing daily of the pressure. 4patient with a stage I pressure ulcer to the right heel area with no open wound or any cellulitis to continue local care by keeping the area dry and off the pressure , patient seemed to be doing well off antibiotics and will continue monitor the patient closely off antibiotic therapy 5-positive urine culture with yeast more likely colonization and no need for Diflucan
[2021-08-28 16:28] LABS: Glucose,Whole Blood 101 mg/dL (75-99)
[2021-08-28] MEDS ORDERED: LIDOCAINE 1% (10MG/ML) FOR IV START INTRADERMA PRN (17:45)
[2021-08-28] MEDS: LACTATED RINGERS 1,000 ML IV SCH (19:09)
[2021-08-28 19:21] LABS: Glucose,Whole Blood 94 mg/dL (75-99)
[2021-08-28] MEDS: ATORVASTATIN 20 MG TAB PO SCH (19:24)
[2021-08-28] MEDS: HYDROcodone/APAP 5-325MG 1 EACH TAB PO PRN (19:24)
[2021-08-28] MEDS: COLLAGENASE 250 UNIT/GM OINTMENT 30 GM TUBE TOPICAL SCH (19:25)
[2021-08-29 05:53] LABS: Glucose,Whole Blood 89 mg/dL (75-99)
[2021-08-29] MEDS: INSULIN ASPART (NovoLOG) 100 UNIT/ML VIAL SQ SCH ×4 (07:03→21:31)
[2021-08-29] MEDS: PANTOPRAZOLE 40 MG TABLET PO SCH (07:04)
[2021-08-29] MEDS: polyethylene glycoL 3350 17 GM POWD.PACK PO SCH (08:14)
[2021-08-29 09:11] LABS: HCT 26.5 % (34.0-46.0); HGB 8.2 gm/dL (11.4-16.0); Hypochromasia Marked; MCH 27.7 pg (25.0-35.0); MCV 89.3 fL (80.0-100.0); Mean Platelet Volume 6.6; Platelet Count 577 k/uL (150-450); Poikilocytosis Slight; RBC 2.97 m/uL (3.80-5.40); RDW 15.2 % (11.5-15.5); WBC 8.2 k/uL (3.8-10.6)
[2021-08-29 09:32] LABS: Calcium 7.9 mg/dL (8.4-10.2); Potassium 4.4 mmol/L (3.5-5.1)
[2021-08-29] MEDS ORDERED: LIDOCAINE 1% INJ 10MG/ML (20 ML MDV) ONE (11:54)
[2021-08-29] MEDS ORDERED: PROPOFOL 10 MG/ML 20 ML VIAL IV ONE (11:54)
[2021-08-29] MEDS ORDERED: IV FLUID CONTINUATION 1,000 ML IV ONE ×2 (11:55)
--- NOTE | 2021-08-29 12:06 | P.OP ---
Date of Procedure: 08/29/21 Preoperative Diagnosis: Anemia, possible GI bleed Postoperative Diagnosis: Mild antral gastritis Procedure(s) Performed: EGD Anesthesia: MAC Surgeon: Jose Pulido Pathology: other (Antrum) Condition: stable Disposition: PACU Description of Procedure: The patient's placed on the endoscopy table in the lateral position. She received IV sedation. The gastroscope placed oropharynx passed in the esophagus into the stomach. Scope was then placed through the pylorus. The first and second portion duodenum appeared normal. Scope was then brought back the antrum was mildly inflamed. A biopsies performed. Scope was then retroflexed the remainder the stomach appeared normal. The GE junction was at 40 cm. The distal esophagus appeared normal. The proximal esophagus appeared normal. Scope withdrawn for patient. There was no evidence of any upper GI bleed.
[2021-08-29] MEDS: TAMSULOSIN 0.4 MG CAP.ER.24H PO SCH (12:23)
[2021-08-29 12:24] LABS: Glucose,Whole Blood 82 mg/dL (75-99)
--- NOTE | 2021-08-29 13:57 | P.DS ---
Providers Date of admission: 08/22/21 01:09 Attending physician: Scout Cerda Consults: 08/22/21 01:10 Consult Physician Routine Consulting Provider: Nicholas Proctor Consult Reason/Comments: known Do you want consulting provider notified?: Yes 08/22/21 12:38 Consult Physician Routine Consulting Provider: Jose Guadalupe Dhillon Consult Reason/Comments: anemia Do you want consulting provider notified?: Yes 08/22/21 12:50 Consult Physician Routine Consulting Provider: Freddie Silva Consult Reason/Comments: known to patient, on vancomycin infusions at [facility] Do you want consulting provider notified?: Yes 08/25/21 12:05 Consult Physician Routine Consulting Provider: Jose Pulido Consult Reason/Comments: eval for GI bleed Do you want consulting provider notified?: Yes Primary care physician: Stated None Hospital Course: Final Diagnosis Symptomatic anemia with hemoglobin 4.7 on admission. s/p PRBC transfusion. hb 8.2 . No evidence of acute bleed on EGD today, colonoscopy outpatient. Iron deficiency anemia received IV iron Acute kidney injury likely prerenal. possible ATN with pt being on vancomycin, with contribution from nonsteroidal anti-inflammatory medications. Serum creatinine remains stable. Slow improvement. Repeat in 2 days outpatient, continue off antibiotics per ID and hold NSAIDs. Elevated troponin. likely demand ischemia. Hypovolemic hyponatremia improving Nonhealing left ankle ulcer stage 2. No active bleeding noted. Status post left femoropopliteal in situ vein graft, left, femoral artery thromboendarterectomy with patch angioplasty on 07/29/2021. Hypertension Hyperlipidemia Diabetes type 2 [id number] History of [place] Previous history of smoking Full Code Discharge Disposition Patient to return to rehab today. EGD shows no active bleed, tolerating diet. Hospital Course Patient is a 70-year-old female with a known history of hypertension, hyperlipidemia, peripheral vascular disease status post left femoropopliteal in situ vein bypass with a left common femoral artery thromboendarterectomy with patch angioplasty on 07/29/2021, nonhealing left ankle fracture wound and previous history of smoking was sent to hospital from the rehab due to low hemoglobin level. Otherwise denied any hematemesis melena. No cough or sputum production. No chest pain or shortness of. No complaints of abdominal pain. Patient is also feeling weak and lethargic. On admission hemoglobin found to be 4.7 and patient was given 1 unit of PRBC. Repeat hemoglobin this morning showed at 8.2. No active bleeding at the left ankle surgical site noted. Other laboratory showed WBC 9.5 hemoglobin 4.7 platelets 411 MCV 87.8 Sodium 133 potassium 4.2 chloride 104 bicarb is 22 BUN 31 and creatinine 2.05 Previous creatinine level 0.93 about a week ago. Calcium 8.1 liver enzymes are not elevated and troponin is 0.140 and albumin 2.5. Patient was evaluated by infectious disease was called recommending patient to continue off antibiotics. Patient was hydrated with IV fluids this admission. Local wound care as ordered by ID: Nonhealing wound to the left groin with some slough tissue but no cellulitis, patient to continue local wound care with the Santyl followed by moist dressing change daily. Left thigh and leg wound with no slough tissue or surrounding redness , patient to continue local wound care with a dry Aquacel silver dressing. Stage II pressure ulcer of the left heel area with no surrounding cellulitis, patient to continue local wound care with the dry Aquacel silver dressing daily of the pressure. Stage I pressure ulcer to the right heel area with no open wound or any cellulitis to continue local care by keeping the area dry and off the pressure 08/29/2021 Patient unable to complete Colon prep 2 days, will defer for outpatient colonoscopy per surgical services. Underwent EGD today which showed no acute bleed. Patient is unsure when last bowel movement was, will complete an abdominal xray prior to discharge and patient will receive a dose of lactulose. Otherwise denies dysuria, urgency, burning with urination. No nausea, vomiting, denies abdominal pain, no tenderness noted. Tolerating diet s/p EGD. Creatinine has remained stable at 1.5 and patient will continue off antibiotics as recommend by ID. Also recommended to hold NSAIDs. Repeat labs in 2 days. Patient does not have a PCP. States she lives in [facility] has been up this way at her sisters house. Labs today show white count 8.2, hemoglobin 8.2, sodium 134 which is improving, potassium 4.4, quite well 8, CO2 23, creatinine 1.55, liver enzymes within normal limits, blood glucose stable in the 90s. She is afebrile, heart rate 76, blood pressure 128/85, 95% room air. All dressings are intact. Lungs are clear, S1-S2 auscultated abdomen is soft nontender with positive bowel sounds. Positive peripheral pulses. Focal neurological exam is negative. Patient would like to return to rehab today. Please see medication reconciliation for a list of current medications. Thank you for allowing us to participate in the care of this patient. Patient Condition at Discharge: Fair Plan - Discharge Summary Discharge Rx Participant: No New Discharge Prescriptions: New bisacodyL [Dulcolax] 10 mg RECTAL DAILY PRN supp PRN Reason: Constipation INSULIN ASPART (NovoLOG) [NovoLOG (formulary)] 0 unit SQ ACHS ml Collagenase [Santyl Ointment] 1 applic TOPICAL HS polyethylene glycoL 3350 [Miralax] 17 gm PO DAILY packet Pantoprazole [Protonix] 40 mg PO AC-BRKFST tab Continue Ergocalciferol [Vitamin D2 (1250 Mcg = 27916 Iu)] 1,250 mcg PO TU Aspirin 81 mg PO DAILY Acetaminophen [Tylenol] 650 mg PO Q6H PRN PRN Reason: Pain amLODIPine BESYLATE 10 mg PO HS Promethazine HCl 12.5 mg PO Q8H PRN PRN Reason: Nausea Multivitamins, Thera [Multivitamin (formulary)] 1 tab PO DAILY Melatonin 5 mg PO HS@2000 Docusate [Colace] 100 mg PO DAILY PRN PRN Reason: Constipation Clopidogrel [Plavix] 75 mg PO HS@2000 Ferrous Sulfate [Feosol] 325 mg PO HS@2000 Magnesium Oxide [Magox 400] 400 mg PO HS Linagliptin [Tradjenta] 5 mg PO DAILY Tamsulosin [Flomax] 0.4 mg PO DAILY Atorvastatin [Lipitor] 20 mg PO HS@2000 HYDROcodone/APAP 5-325MG [[place] 5-325] 1 tab PO Q6HR PRN #9 tab PRN Reason: Pain Discontinued metFORMIN HCL [Glucophage] 500 mg PO BID cefTRIAXone SODIUM 2 gm IV Q24H Vancomycin HCl in 5 % Dextrose [Vancomycin 1 Gram/250 ml-D5w] 1 gm IV Q16H #30 each Discharge Medication List Aspirin 81 mg PO DAILY 07/16/21 [History] Ergocalciferol [Vitamin D2 (1250 Mcg = 29446 Iu)] 1,250 mcg PO TU 07/16/21 [History] Magnesium Oxide [Magox 400] 400 mg PO HS 07/16/21 [History] Acetaminophen [Tylenol] 650 mg PO Q6H PRN 07/26/21 [History] Linagliptin [Tradjenta] 5 mg PO DAILY 07/26/21 [History] Tamsulosin [Flomax] 0.4 mg PO DAILY 07/26/21 [History] amLODIPine BESYLATE 10 mg PO HS 07/26/21 [History] Atorvastatin [Lipitor] 20 mg PO HS@199908/15/21 [History] Clopidogrel [Plavix] 75 mg PO HS@199908/15/21 [History] Docusate [Colace] 100 mg PO DAILY PRN 08/15/21 [History] Melatonin 5 mg PO HS@199908/15/21 [History] Multivitamins, Thera [Multivitamin (formulary)] 1 tab PO DAILY 08/15/21 [History] Promethazine HCl 12.5 mg PO Q8H PRN 08/15/21 [History] Ferrous Sulfate [Feosol] 325 mg PO HS@199908/22/21 [History] Collagenase [Santyl Ointment] 1 applic TOPICAL HS 08/29/21 [Rx] HYDROcodone/APAP 5-325MG [[place] 5-325] 1 tab PO Q6HR PRN #9 tab 08/29/21 [Rx] INSULIN ASPART (NovoLOG) [NovoLOG (formulary)] 0 unit SQ ACHS ml 08/29/21 [Rx] Pantoprazole [Protonix] 40 mg PO AC-BRKFST tab 08/29/21 [Rx] bisacodyL [Dulcolax] 10 mg RECTAL DAILY PRN supp 08/29/21 [Rx] polyethylene glycoL 3350 [Miralax] 17 gm PO DAILY packet 08/29/21 [Rx] Follow up Appointment(s)/Referral(s): Juancho Vilchis DO [Doctor of Osteopathic Medicine] - 2 Weeks [facility] [NON-STAFF] - 1 Week Freddie Silva MD [STAFF PHYSICIAN] - 1 Week Jose Pulido MD [STAFF PHYSICIAN] - 1 Week Orion Sapp MD [STAFF PHYSICIAN] - 1-2 Days () Ambulatory/Diagnostic Orders: Basic Metabolic Panel [LAB.AMB] Time Frame: 2 Days, Location: None Selected Activity/Diet/Wound Care/Special Instructions: Discharge to rehab after EGD completed today No antibiotics on discharge per Dr Silva Patient will need to schedule for outpatient colonoscopy with Dr Pulido Discharge Disposition: TRANSFER TO SNF/ECF
--- NOTE | 2021-08-29 14:13 | XR ---
EXAMINATION TYPE: XR abdomen 1V DATE OF EXAM: 08/29/2021 COMPARISON: None INDICATION: Constipation TECHNIQUE: Single view abdomen frontal supine view FINDINGS: There is abundant bowel gas present throughout the abdomen. This appears to be within small bowel loo ps as well as the colon. Small bowel loops are slightly prominent within the right mid abdomen. No fo melanie narrowing is evident. No significant fecal retention is evident. Psoas margins are not well visualized. No organomegaly is present. IMPRESSION: 1. Multiple air-filled loops of bowel which are nonspecific. Correlate for ileus. No suspicious walsh es for obstruction identified at this time. Follow up can be performed as clinically indicated.
[2021-08-29 14:24] LABS: Albumin 2.26 g/dL (3.80-4.90); Gamma Globulin 0.97 g/dL (0.70-1.50)
[2021-08-29 16:41] LABS: Glucose,Whole Blood 99 mg/dL (75-99)
[2021-08-29] MEDS: ATORVASTATIN 20 MG TAB PO SCH (20:31)
[2021-08-29] MEDS: HYDROcodone/APAP 5-325MG 1 EACH TAB PO PRN (20:33)
[2021-08-29] MEDS: COLLAGENASE 250 UNIT/GM OINTMENT 30 GM TUBE TOPICAL SCH (20:34)
[2021-08-29 21:29] LABS: Glucose,Whole Blood 130 mg/dL (75-99)
[2021-08-30 06:17] LABS: Glucose,Whole Blood 102 mg/dL (75-99)
[2021-08-30] MEDS: LACTATED RINGERS 1,000 ML IV SCH ×2 (06:30→18:26)
[2021-08-30] MEDS: INSULIN ASPART (NovoLOG) 100 UNIT/ML VIAL SQ SCH ×4 (06:33→20:49)
[2021-08-30] MEDS: PANTOPRAZOLE 40 MG TABLET PO SCH (06:33)
[2021-08-30] MEDS ORDERED: LACTULOSE 20 GM/30 ML CUP PO ONE (11:00)
[2021-08-30] MEDS: polyethylene glycoL 3350 17 GM POWD.PACK PO SCH (11:51)
[2021-08-30] MEDS: TAMSULOSIN 0.4 MG CAP.ER.24H PO SCH (11:51)
[2021-08-30] MEDS ORDERED: LACTULOSE 20 GM/30 ML CUP PO SCH ×2 (14:00→18:00)
--- NOTE | 2021-08-30 14:12 | P.PN ---
Subjective Progress Note Date: 08/30/21 CHIEF COMPLAINT: Anemia HISTORY OF PRESENT ILLNESS: The patient was seen and examined today lying in bed. She denies any abdominal pain. Yesterday she underwent EGD with findings of mild antral gastritis, no evidence of GI bleed. Patient had abdominal x-ray yesterday afternoon with report stating multiple air-filled loops of bowel which are nonspecific. Correlate for ileus. No suspicious changes for obstruction identified at this time. Air likely related to EGD. Patient denies any nausea or vomiting. She has not had a bowel movement in several days however she has been on a clear liquid diet. PHYSICAL EXAM: VITAL SIGNS: Reviewed. GENERAL: Well-developed in no acute distress. HEENT: No sclera icterus. Extraocular movements grossly intact. Moist buccal mucosa. Head is atraumatic, normocephalic. ABDOMEN: Soft. Nondistended. Tender to palpation below umbilicus. Positive bowel sounds. NEUROLOGIC: Alert and oriented. Cranial nerves II through XII grossly intact. ASSESSMENT: 1. Anemia 2. Weakness 3. Recent left lower extremity revascularization on Plavix PLAN: 1. Clear liquid diet, advance as tolerated 2. Avoid NSAIDs 3. Protonix 40 mg daily GI prophylaxis 4. Lactulose 30 g 1 5. May resume Plavix 6. Patient is cleared from general surgery for discharge Thank you for this consultation, we will continue to follow. The impression and plan of care has been dictated as directed. I performed a history and examination of this patient, discussed the same with the dictator. I agree with the dictator's note ,documented as a scribe. Any additional findings or plans will be noted. Objective - Vital Signs Vital signs: Vital Signs Temp 98.0 F 08/30/21 08:56 Pulse 85 08/30/21 08:56 Resp 18 08/30/21 08:56 BP 138/62 08/30/21 08:56 Pulse Ox 95 08/30/21 08:56 Intake & Output 08/29/21 08/30/21 08/30/21 18:59 06:59 18:59 Intake Total 168 250 485 Output Total 900 600 Balance -732 -350 485 Intake: IV 50 Oral 118 250 485 Output: Urine 900 600 Other: Voiding Method Indwelling Catheter Indwelling Catheter - Labs CBC & Chem 7: 08/29/21 08:56 08/29/21 08:56 Labs: Abnormal Lab Results - Last 24 Hours (Table) 08/24/21 08/29/21 08/29/21 Range/Units 07:52 08:56 21:27 Sodium 134 L (137-145) mmol/L Chloride 108 H (98-107) mmol/L BUN 21 H (7-17) mg/dL Creatinine 1.55 H (0.52-1.04) mg/dL POC Glucose (mg/dL) 130 H (75-99) mg/dL Calcium 7.9 L (8.4-10.2) mg/dL Albumin (PEP) 2.26 L (3.80-4.90) g/dL [id number] 0.48 H (0.10-0.40) g/dL 08/30/21 Range/Units 06:15 Sodium (137-145) mmol/L Chloride (98-107) mmol/L BUN (7-17) mg/dL Creatinine (0.52-1.04) mg/dL POC Glucose (mg/dL) 102 H (75-99) mg/dL Calcium (8.4-10.2) mg/dL Albumin (PEP) (3.80-4.90) g/dL [id number]-[id number] (0.10-0.40) g/dL
--- NOTE | 2021-08-30 15:17 | P.PN ---
Subjective Progress Note Date: 08/30/21 Patient is a 70-year-old female with a known history of hypertension, hyperlipidemia, peripheral vascular disease status post left femoropopliteal in situ vein bypass with a left common femoral artery thromboendarterectomy with patch angioplasty on 07/29/2021, nonhealing left ankle fracture wound and pre vious history of smoking was sent to hospital from the rehab due to low hemoglobin level. Otherwise denied any hematemesis melena. No cough or sputum production. No chest pain or shortness of. No complaints of abdominal pain. Patient is also feeling weak and lethargic. On admission hemoglobin found to be 4.7 and patient was given 1 unit of PRBC. Repeat hemoglobin this morning showed at 7.5. No active bleeding at the left ankle surgical site noted. Other laboratory showed WBC 9.5 hemoglobin 4.7 platelets 411 MCV 87.8 Sodium 133 potassium 4.2 chloride 104 bicarb is 22 BUN 31 and creatinine 2.05 Previous creatinine level 0.93 about a week ago. Calcium 8.1 liver enzymes are not elevated and troponin is 0.140 and albumin 2.5. 08/23/2021 Patient is currently resting in the bed. Awake alert and oriented x3. No complaints of chest pain or shortness of. Tolerating oral diet. Otherwise patient did not have any bowel movement lower the last few days. Denied any complaints of lower extremity pain. Laboratory data showed hemoglobin 7.8 and platelets 341 sodium 132 potassium 4.4 chloride 105 BUN 3020 creatinine improved to 1.94. Patient is being continued on IV hydration with normal saline. Troponin trending down to 0.114. No complaints of chest pain or shortness breath. No headache or dizziness or lightheadedness. Procalcitonin 0.18 and CRP levels 4.5. ID has seen the patient and continue with local wound care and moist dressing change daily. No further antibiotic therapy recommended. Hematology was consulted and anemia and hemolysis work-up was ordered. 08/24/2021 Patient is currently resting alert. Recollecting when x3. Denied any complaints of chest pain or shortness of breath. No headache or dizziness or lightheadedness. Leg pain is improved. No active bleeding noted. Otherwise patient is having constipation and is being continued softeners and laxatives. Patient has been afebrile. Lab data showed WBC 7.1 hemoglobin improved to 8.1 platelets 389 sodium 132, potassium 4.3 chloride 103 BUN 3020 creatinine 1.82 Calcium 8.0. Patient is iron deficient. 08/25/2021 Patient is currently lying in the bed. Awake alert and oriented. No complaints of chest pain or shortness of breath. Denies any leg pain. No fever no chills. Patient is being current on left lower extremity wound care. Otherwise laboratory data showed WBC 8.2 hemoglobin 7.6 and platelets 399. Patient is being continued on IV supplementation IV iron. Sodium 130 potassium 4.6 chloride 103 BUN 34 and creatinine 1.90 also on IV hydration. Tolerating oral diet slowly. General surgery was consulted for evaluation of GI bleeding. ID and hematology is on board. 08/26/2021 She doesn't have any more bleeding patient is now without stools or blood in the stools. Patient is clinically doing well. Patient will undergo colonoscopy and upper GI endoscopy. Patient's hemoglobin remained stable creatinine remains stable patient is off vancomycin. 08/27/2021 Patient will undergo EGD and colonoscopy today. Patient's hemoglobin remained stable serum sodium is improving. Patient today is receiving IV fluids with. Patient's the creatinine is improving presently 1.6 which is not baseline yet because of which I'll continue with IV fluids today recheck basic metabolic profile tomorrow possibility of discharge tomorrow. 08/28/2021 Because of poor prep patient was unable to undergo colonoscopy yesterday patient is doing prep today. After colonoscopy patient probably can be discharged tomorrow patient is otherwise medically stable creatinine is slowly improving patient renal failure is secondary to probably nonsteroidal anti-inflammatory medication, vancomycin and dehydration patient remains on IV fluids which I'll cut it down to 75 mL per hour. 08/30/2021 Patient is seen and evaluated in follow-up with multiple medical consultations following. Gen. surgery following as there are plans for colonoscopy although patient unable to do the prep and will follow-up in the outpatient setting with general surgery. Per nursing staff and patient unsure of last bowel movement in patient with mild distention of the abdomen with some discomfort as well on palpation. Patient was given a dose of lactulose and seen again by general surgery recommending outpatient follow-up. Repeat abdominal x-ray yesterday shows multiple air-filled loops of bowel which are nonspecific to correlate for ileus with no stenosis is suspicious changes for obstruction identified at this time and no significant fecal retention is evident. This was discussed the general surgery and the air most likely associated with recent EGD. Will add lactulose every 4 hours until bowel movement. Patient reports not eating very much at all as well. Patient is continued on clear liquids and may advance as tolerated. Continue with prophylactic Protonix and avoid NSAIDs if possible. Okay to resume Plavix per surgery. Patient denies chest pains or shortness of breath. Patient is afebrile. No reports of nausea or vomiting noted. Infectious disease also following. Review of systems: Constitutional: Denied any fatigue denied any fever. Cardio vascular: denied any chest pain, palpitations Gastrointestinal denied any nausea vomiting Pulmonary: Denied any shortness of breath cough Neurologic denied any new focal deficits Active Medications Acetaminophen (Acetaminophen Tab 325 Mg Tab) 650 mg PO Q6H PRN PRN Reason: Mild Pain Last Admin: 08/23/21 22:04 Dose: 650 mg Documented by: Hydrocodone Bitart/Acetaminophen (Hydrocodone/Apap 5-325mg 1 Each Tab) 1 each PO Q6HR PRN PRN Reason: Pain Last Admin: 08/29/21 20:33 Dose: 1 each Documented by: Atorvastatin Calcium (Atorvastatin 20 Mg Tab) 20 mg PO HS@1999 [facility] Last Admin: 08/29/21 20:31 Dose: 20 mg Documented by: Bisacodyl (Bisacodyl 10 Mg Supp) 10 mg RECTAL DAILY PRN PRN Reason: Constipation Clopidogrel Bisulfate (Clopidogrel 75 Mg Tab) 75 mg PO DAILY AZALIA Collagenase (Collagenase 250 Unit/Gm Ointment 30 Gm Tube) 1 applic TOPICAL HS [facility]; Protocol Last Admin: 08/29/21 20:34 Dose: 1 applic Documented by: Docusate Sodium (Docusate 100 Mg Cap) 100 mg PO DAILY PRN PRN Reason: Constipation Last Admin: 08/25/21 08:35 Dose: 100 mg Documented by: Sodium Chloride (Saline 0.9%) 1,000 mls @ 75 mls/hr IV .[id number] [facility] Last Admin: 08/28/21 19:24 Dose: 75 mls/hr Documented by: Lactated Ringer's (Lactated Ringers) 1,000 mls @ 20 mls/hr IV .Q24H [facility] Last Admin: 08/30/21 06:30 Dose: Not Given Documented by: Insulin Aspart (Insulin Aspart (Novolog) 100 Unit/Ml Vial) 0 unit SQ ACHS [facility]; Protocol Last Admin: 08/30/21 13:21 Dose: Not Given Documented by: Lactulose (Lactulose 20 Gm/30 Ml Cup) 20 gm PO Q4H [facility] Lidocaine HCl (Lidocaine 1% (10mg/Ml) For Iv Start) 0.1 ml INTRADERMA PER PROTOCOL PRN PRN Reason: IV Start Naloxone HCl (Naloxone 0.4 Mg/Ml 1 Ml Vial) 0.2 mg IV Q2M PRN PRN Reason: Opioid Reversal Ondansetron HCl (Ondansetron 4 Mg/2 Ml Vial) 4 mg IVP Q8HR PRN PRN Reason: Nausea And Vomiting Last Admin: 08/22/21 12:54 Dose: 4 mg Documented by: Pantoprazole Sodium (Pantoprazole 40 Mg Tablet) 40 mg PO AC-BRKFST [facility] Last Admin: 08/30/21 06:33 Dose: Not Given Documented by: Polyethylene Glycol (Polyethylene Glycol 3350 17 Gm Powd.Pack) 17 gm PO DAILY [facility] Last Admin: 08/30/21 11:51 Dose: 17 gm Documented by: Tamsulosin HCl (Tamsulosin 0.4 Mg Cap.Er.24h) 0.4 mg PO DAILY [facility] Last Admin: 08/30/21 11:51 Dose: 0.4 mg Documented by: PHYSICAL EXAMINATION: Patient is lying in the bed, awake alert and oriented.. HEENT: Normocephalic. Neck is supple. Pupils reactive. Nostrils clear. Oral cavity is moist. Neck: reveals no JVD, carotid bruits, or thyromegaly. CHEST EXAMINATION: Trachea is central. Symmetrical expansion. Bibasilar diminished sounds, lung iniguez clear to auscultation and percussion. CARDIAC: S1, S2 are muffled ABDOMEN: Soft. Mildly distended, tender on palpation. Bowel sounds normal. No organomegaly. No abdominal bruits. Extremities: reveal no edema. No clubbing or cyanosis Neurologically awake, alert, oriented x3 with well-coordinated movements. No focal deficits noted, diffusely weak Skin: No rash or skin lesions. Psychiatric: Cooperative. Non-suicidal Musculoskeletal: No joint swelling or deformity. Normal range of motion. Left ankle surgical site is bandaged. Assessment: Symptomatic anemia with hemoglobin 4.7 on admission. s/p PRBC transfusion. hb 7.6 . No evidence of acute GI bleed Iron deficiency anemia received IV iron Acute kidney injury likely prerenal. possible ATN with pt recently being on vancomycin and also contributed from use of nonsteroidal anti-inflammatory medications. Elevated troponin. likely demand ischemia. Hypovolemic hyponatremia improving Nonhealing left ankle ulcer stage 2. No active bleeding noted. Status post left femoropopliteal in situ vein graft, left, femoral artery thromboendarterectomy with patch angioplasty on 07/29/2021. Hypertension Hyperlipidemia Diabetes type 2 [id number] History of [place] Previous history of smoking Plan: Recommend to continue with current medications and management. Patient continues to have no bowel movement and general surgery evaluated the patient recommending outpatient colonoscopy follow-up and continue with clear liquids and advance as tolerated. Monitor closely for any bleeding as there is been no acute bleeding noted. Hemoglobin yesterday was 8.2 and will repeat labs. Kidney functions elevated at 1.55 and will continue with IV hydration and repeat labs. Recommend continue to monitor Accu-Cheks before meals and at bedtime and continue with current sliding scale. Lactulose ordered every 4 hours until bowel movement. Encourage oral intake and also continue with PT/OT therapy. Case management and social work following with plans for possible ECF once stabilized and discharged. Patient to continue with indwelling Colby catheter for now for close monitoring of intake and output. Continue with local wound care to the left lower extremity and appropriate home medications have been resumed. Due to multiple complex medical issues, prognosis is guarded. The impression and plan of care has been dictated by Nell Mendez, Nurse Practitioner as directed. Dr. Prashant MD I have performed a history and examination and MDM of this patient, discussed the same with the dictator, and agree with the dictator's assessment and plan as written ,documented as a scribe. Based on total visit time, I have performed more than 50% of the visit. Objective - Vital Signs Vital signs: Vital Signs Temp 98.0 F 08/30/21 08:56 Pulse 85 08/30/21 08:56 Resp 18 08/30/21 08:56 BP 138/62 08/30/21 08:56 Pulse Ox 95 08/30/21 08:56 Intake & Output 08/29/21 08/30/21 08/30/21 18:59 06:59 18:59 Intake Total 168 250 485 Output Total 900 600 Balance -732 -350 485 Intake: IV 50 Oral 118 250 485 Output: Urine 900 600 Other: Voiding Method Indwelling Catheter Indwelling Catheter Indwelling Catheter - Labs CBC & Chem 7: 08/29/21 08:56 08/29/21 08:56 Labs: Abnormal Lab Results - Last 24 Hours (Table) 08/24/21 08/29/21 08/30/21 Range/Units 07:52 21:27 06:15 POC Glucose (mg/dL) 130 H 102 H (75-99) mg/dL Albumin (PEP) 2.26 L (3.80-4.90) g/dL [id number] 0.48 H (0.10-0.40) g/dL
[2021-08-30] MEDS: LACTULOSE 20 GM/30 ML CUP PO SCH ×2 (17:22→20:49)
[2021-08-30] MEDS: SODIUM CHLORIDE 0.9% 1,000 ML IV SCH ×2 (18:23→18:54)
[2021-08-30 20:42] LABS: Glucose,Whole Blood 175 mg/dL (75-99)
[2021-08-30] MEDS: ATORVASTATIN 20 MG TAB PO SCH (20:49)
[2021-08-30] MEDS: HYDROcodone/APAP 5-325MG 1 EACH TAB PO PRN (20:50)
[2021-08-30] MEDS: COLLAGENASE 250 UNIT/GM OINTMENT 30 GM TUBE TOPICAL SCH (20:50)
[2021-08-30] MEDS: ONDANSETRON 4 MG/2 ML VIAL IVP PRN (20:59)
--- NOTE | 2021-08-30 21:05 | P.PN ---
Subjective Progress Note Date: 08/29/21 Principal diagnosis: Left groin and lower extremity wounds Patient is a 77-year-old female with a past medical history significant for left ankle fracture status post a subsequently wound dehiscence requiring debridement culture were negative for the patient did have a left lower extremity revascularization no admitted to the hospital with anemia and some drainage from the wounds. On today's evaluation that is 08/29/2021, the patient denies any fever or any chills, the patient is breathing comfortably on room air, the patient denies chest pain shortness of breath or cough , the patient denies abdominal pain and no diarrhea. The patient pain to the left lower extremity wound area is currently controlled Objective - Vital Signs Vital signs: Vital Signs Temp 98.2 F 08/29/21 04:30 Pulse 75 08/29/21 08:00 Resp 16 08/29/21 08:00 BP 142/64 08/29/21 08:00 Pulse Ox 95 08/29/21 04:30 Intake & Output 08/28/21 08/29/21 08/29/21 18:59 06:59 18:59 Intake Total 120 Output Total 725 1125 Balance -605 -1125 Weight 75.5 kg Intake: Oral 120 Output: Urine 725 1125 Other: Voiding Method Indwelling Catheter Indwelling Catheter Indwelling Catheter - Exam GENERAL DESCRIPTION: An elderly female lying in bed in no distress RESPIRATORY SYSTEM: Unlabored breathing , decreased breath sounds at bases HEART: S1 S2 regular rate and rhythm , ABDOMEN: Soft , no tenderness EXTREMITIES: Lower extremity wounds are currently dressed - Labs CBC & Chem 7: 08/29/21 08:56 08/29/21 08:56 Labs: Abnormal Lab Results - Last 24 Hours (Table) 08/24/21 08/28/21 08/29/21 Range/Units 07:52 16:27 08:56 RBC 2.97 L (3.80-5.40) m/uL Hgb 8.2 L (11.4-16.0) gm/dL Hct 26.5 L (34.0-46.0) % Plt Count 577 H (150-450) k/uL Sodium (137-145) mmol/L Chloride (98-107) mmol/L BUN (7-17) mg/dL Creatinine (0.52-1.04) mg/dL POC Glucose (mg/dL) 101 H (75-99) mg/dL Calcium (8.4-10.2) mg/dL Total Protein (PEP) 5.4 L (6.2-8.2) g/dL 08/29/21 Range/Units 08:56 RBC (3.80-5.40) m/uL Hgb (11.4-16.0) gm/dL Hct (34.0-46.0) % Plt Count (150-450) k/uL Sodium 134 L (137-145) mmol/L Chloride 108 H (98-107) mmol/L BUN 21 H (7-17) mg/dL Creatinine 1.55 H (0.52-1.04) mg/dL POC Glucose (mg/dL) (75-99) mg/dL Calcium 7.9 L (8.4-10.2) mg/dL Total Protein (PEP) (6.2-8.2) g/dL Assessment and Plan (1) Non-pressure chronic ulcer of other part of left foot with fat layer exposed Current Visit: No Status: Acute Code(s): L97.522 - NON-PRS CHRONIC ULCER OTH PRT LEFT FOOT W FAT LAYER EXPOSED SNOMED Code(s): 075629869 (2) Non-pressure ulcer of left lower extremity with fat layer exposed Current Visit: No Status: Acute Code(s): L97.922 - NON-PRS CHR ULC UNSP PRT OF L LOW LEG W FAT LAYER EXPOSED SNOMED Code(s): 33861932 (3) Postoperative wound dehiscence Current Visit: No Status: Acute Code(s): T81.31XA - DISRUPTION OF EXTERNAL OPERATION (SURGICAL) WOUND, NEC, INIT SNOMED Code(s): 501810167 Plan: 1patient with a nonhealing wound to the left groin with some slough tissue but no cellulitis, patient is currently being treated with the Santyl followed by moist dressing change daily. 2patient with left thigh and leg wound with no slough tissue or surrounding redness , patient local wound care to continue with dry Aquacel silver dressing. 3patient with stage II pressure ulcer of the left heel area with no surrounding cellulitis, patient to continue local wound care with the dry Aquacel silver d ressing daily of the pressure. 4patient with a stage I pressure ulcer to the right heel area with no open wound or any cellulitis to continue local care by keeping the area dry and off the pressure , patient currently doing well off antibiotics and will continue monitor the patient closely off antibiotic therapy and no need for any antibiotic on discharge this was discussed with the nurse practitioner for admitting team 5-positive urine culture with yeast more likely colonization and no need for Diflucan
--- NOTE | 2021-08-30 21:07 | P.PN ---
Subjective Progress Note Date: 08/30/21 Principal diagnosis: Left groin and lower extremity wounds Patient is a 77-year-old female with a past medical history significant for left ankle fracture status post a subsequently wound dehiscence requiring debridement culture were negative for the patient did have a left lower extremity revascularization no admitted to the hospital with anemia and some drainage from the wounds. Patient did have anemia and is status post EGD the 20 10/25/2021 with evidence of antral gastritis On today's evaluation that is 08/30/2021, the patient remains to be afebrile, the patient is breathing comfortably on room air, the patient denies chest pain shortness of breath or cough , the patient denies abdominal pain and no nausea vomiting or diarrhea. The patient pain to the left lower extremity wound area is currently controlled Objective - Vital Signs Vital signs: Vital Signs Temp 97.8 F 08/30/21 11:57 Pulse 77 08/30/21 11:57 Resp 18 08/30/21 11:57 BP 138/59 08/30/21 11:57 Pulse Ox 99 08/30/21 11:57 Intake & Output 08/29/21 08/30/21 08/30/21 18:59 06:59 18:59 Intake Total 168 250 485 Output Total 900 600 Balance -732 -350 485 Intake: IV 50 Oral 118 250 485 Output: Urine 900 600 Other: Voiding Method Indwelling Catheter Indwelling Catheter Indwelling Catheter - Exam GENERAL DESCRIPTION: An elderly female lying in bed in no distress RESPIRATORY SYSTEM: Unlabored breathing , decreased breath sounds at bases HEART: S1 S2 regular rate and rhythm , ABDOMEN: Soft , no tenderness EXTREMITIES: Lower extremity wounds are currently dressed - Labs CBC & Chem 7: 08/29/21 08:56 08/29/21 08:56 Labs: Abnormal Lab Results - Last 24 Hours (Table) 08/24/21 08/29/21 08/30/21 Range/Units 07:52 21:27 06:15 POC Glucose (mg/dL) 130 H 102 H (75-99) mg/dL Albumin (PEP) 2.26 L (3.80-4.90) g/dL [id number] 0.48 H (0.10-0.40) g/dL Assessment and Plan (1) Non-pressure chronic ulcer of other part of left foot with fat layer exposed Current Visit: No Status: Acute Code(s): L97.522 - NON-PRS CHRONIC ULCER OTH PRT LEFT FOOT W FAT LAYER EXPOSED SNOMED Code(s): 980155141 (2) Non-pressure ulcer of left lower extremity with fat layer exposed Current Visit: No Status: Acute Code(s): L97.922 - NON-PRS CHR ULC UNSP PRT OF L LOW LEG W FAT LAYER EXPOSED SNOMED Code(s): 81870330 (3) Postoperative wound dehiscence Current Visit: No Status: Acute Code(s): T81.31XA - DISRUPTION OF EXTERNAL OPERATION (SURGICAL) WOUND, NEC, INIT SNOMED Code(s): 506020483 Plan: 1patient with a nonhealing wound to the left groin with slough tissue but no evidence of cellulitis, patient to continue with the Santyl followed by moist dressing change daily. 2patient with left thigh and leg wound with no slough tissue or surrounding redness , patient local wound care to continue with dry Aquacel silver d ressing. 3patient with stage II pressure ulcer of the left heel area with no surrounding cellulitis, patient to continue local wound care with the dry Aquacel silver dressing daily of the pressure. 4patient with a stage I pressure ulcer to the right heel area with no open wound or any cellulitis to continue local care by keeping the area dry and off the pressure , patient currently doing well off antibiotics and will continue monitor the patient closely off antibiotic therapy 5-positive urine culture with yeast more likely colonization as the patient has no urinary symptoms and no need for Diflucan
[2021-08-31] MEDS: LACTULOSE 20 GM/30 ML CUP PO SCH ×5 (00:43→20:48)
[2021-08-31 06:26] LABS: Glucose,Whole Blood 160 mg/dL (75-99)
[2021-08-31] MEDS: INSULIN ASPART (NovoLOG) 100 UNIT/ML VIAL SQ SCH ×4 (06:37→20:48)
[2021-08-31] MEDS: PANTOPRAZOLE 40 MG TABLET PO SCH (06:37)
[2021-08-31] MEDS: polyethylene glycoL 3350 17 GM POWD.PACK PO SCH (09:26)
[2021-08-31] MEDS: TAMSULOSIN 0.4 MG CAP.ER.24H PO SCH (09:26)
[2021-08-31] MEDS: CLOPIDOGREL 75 MG TAB PO SCH (09:26)
[2021-08-31] MEDS: HYDROcodone/APAP 5-325MG 1 EACH TAB PO PRN ×2 (09:29→20:47)
[2021-08-31 11:51] LABS: Glucose,Whole Blood 153 mg/dL (75-99)
[2021-08-31] MEDS: LACTATED RINGERS 1,000 ML IV SCH (15:55)
--- NOTE | 2021-08-31 16:21 | P.PN ---
Subjective Progress Note Date: 08/31/21 CHIEF COMPLAINT: Gastrointestinal bleeding HISTORY OF PRESENT ILLNESS: The patient is a 70-year-old with peripheral vascular occlusive disease status post left femoral-popliteal bypass 07/29/2021. She was readmitted due to complications including gastrointestinal bleeding. She completed upper endoscopy with features of gastritis. Patient denies any blood in stools. She had a bowel movement today. She reports low appetite. No further bleeding. ROS: No reports of nausea and vomiting. No fevers or chills. No new chest pain. PHYSICAL EXAM: VITAL SIGNS: Reviewed CONSTITUTIONAL: Well developed and in no acute distress. EYES: Conjuctivae without sclera icterus. Extraocular movements grossly intact. HEAD, EARS, NOSE, THROAT: Moist buccal mucosa. Head is atraumatic, normocephalic. Hears conversational speech. No nasal drainage. RESPIRATORY: Non-labored respirations and equal bilateral excursions. CARDIOVASCULAR: Palpable 2+ radial pulses. ABDOMEN: MUSCULOSKELETAL: No gross deformity of the lower extremities noted. No clubbing. No cyanosis. SKIN: Good skin turgor. Well perfused. NEUROLOGIC: Cranial nerves II through XII grossly intact. No focal or lateralizing signs. PSYCH: Appropriate affect. Alert and oriented to person, place and time. CLINICAL LABS: Reviewed. Hemoglobin 8.2 on 08/29/2021. ASSESSMENT: 1. Gastrointestinal bleeding with anemia 2. Peripheral vascular occlusive disease status post left femoral popliteal bypass PLAN: 1. She reports no further bleeding. 2. Diet as tolerated. 3. Recommend repeat CBC for stability of hemoglobin Objective - Vital Signs Vital signs: Vital Signs Temp 97.8 F 08/31/21 12:34 Pulse 87 08/31/21 12:34 Resp 18 08/31/21 14:00 BP 134/79 08/31/21 12:34 Pulse Ox 98 08/31/21 12:34 Intake & Output 08/30/21 08/31/21 08/31/21 18:59 06:59 18:59 Intake Total 985 735 Output Total 700 1400 Balance 285 -665 Intake: Oral 985 735 Output: Urine 700 1200 Emesis 200 Other: Voiding Method Indwelling Catheter Indwelling Catheter Indwelling Catheter # Bowel Movements 1 - Labs CBC & Chem 7: 08/29/21 08:56 08/29/21 08:56 Labs: Abnormal Lab Results - Last 24 Hours (Table) 08/30/21 08/31/21 08/31/21 Range/Units 20:40 06:25 11:50 POC Glucose (mg/dL) 175 H 160 H 153 H (75-99) mg/dL Assessment and Plan (1) Peripheral vascular occlusive disease Current Visit: Yes Status: Acute Code(s): I73.9 - PERIPHERAL VASCULAR DISEASE, UNSPECIFIED SNOMED Code(s): 126613698 (2) Gastrointestinal bleeding Current Visit: Yes Status: Acute Code(s): K92.2 - GASTROINTESTINAL HEMORRHAGE, UNSPECIFIED SNOMED Code(s): 20071384 (3) Gastritis Current Visit: Yes Status: Acute Code(s): K29.70 - GASTRITIS, UNSPECIFIED, WITHOUT BLEEDING SNOMED Code(s): 7836013 (4) Antiplatelet or antithrombotic long-term use Current Visit: Yes Status: Acute Code(s): Z79.02 - USP (CURRENT) USE OF ANTITHROMBOTICS/ANTIPLATELETS SNOMED Code(s): 409216403 (5) Anemia Current Visit: Yes Status: Acute Priority: Medium Code(s): D64.9 - ANEMIA, UNSPECIFIED SNOMED Code(s): 370666654
--- NOTE | 2021-08-31 16:35 | PN ---
PROGRESS NOTE DATE OF SERVICE: 08/31/2021 This 70-year-old woman who was admitted with symptomatic anemia also had constipation. The patient was given lactulose. No chest pain. No palpitations. No fever. The plain x-ray of abdomen recently also showed multiple air-filled loops which are nonspecific; possibly ileus also. No chest pain or palpitation. PHYSICAL EXAMINATION: Pulse is 87, blood pressure 124/70, respiration. CHEST: Clear to auscultation. CARDIOVASCULAR: S1, S2 muffled. ABDOMEN: Soft. Mild diffuse distention. No tenderness. No guarding. Bowel sounds diminished. LEGS: No edema. No swelling. NERVOUS SYSTEM: No focal deficit. LABS: Glucose 153. ASSESSMENT: 1. Symptomatic anemia. No active evidence of GI bleed; possibly iron deficient anemia. 2. Constipation. 3. Hypovolemic hyponatremia. 4. Status post left femoropopliteal in-situ bypass. RECOMMENDATIONS AND DISCUSSION: I recommend to continue current medications, continue with the monitoring, symptomatic treatment. Continue with lactulose. Repeat labs in the morning. Continue with PT/OT evaluation. Possible ECF rehab on Thursday. Guarded prognosis because of multiple complex medical issues, as listed above. Further recommendations to follow. MMODL / IJN: [id number] /
[2021-08-31 16:37] LABS: Glucose,Whole Blood 127 mg/dL (75-99)
[2021-08-31 20:02] LABS: Glucose,Whole Blood 140 mg/dL (75-99)
[2021-08-31] MEDS: COLLAGENASE 250 UNIT/GM OINTMENT 30 GM TUBE TOPICAL SCH (20:47)
[2021-08-31] MEDS: ATORVASTATIN 20 MG TAB PO SCH (20:47)
--- NOTE | 2021-08-31 22:12 | P.PN ---
Subjective Progress Note Date: 08/31/21 Principal diagnosis: Left groin and lower extremity wounds Patient is a 77-year-old female with a past medical history significant for left ankle fracture status post a subsequently wound dehiscence requiring debridement culture were negative for the patient did have a left lower extremity revascularization no admitted to the hospital with anemia and some drainage from the wounds. Patient did have anemia and is status post EGD the 20 10/25/2021 with evidence of antral gastritis On today's evaluation that is 08/31/2021, the patient denies any fever or any chills, the patient is breathing comfortably on room air, the patient denies chest pain shortness of breath or cough , the patient denies abdominal pain however the patient did not have any bowel movement for about a week that is holding her discharge, The patient pain to the left lower extremity wound area is currently controlled, RN mention dressing has been changed by midnight shift and mention wounds are overall healing well Objective - Vital Signs Vital signs: Vital Signs Temp 97.8 F 08/31/21 12:34 Pulse 87 08/31/21 12:34 Resp 18 08/31/21 12:34 BP 134/79 08/31/21 12:34 Pulse Ox 98 08/31/21 12:34 Intake & Output 08/30/21 08/31/21 08/31/21 18:59 06:59 18:59 Intake Total 985 735 Output Total 700 1400 Balance 285 -665 Intake: Oral 985 735 Output: Urine 700 1200 Emesis 200 Other: Voiding Method Indwelling Catheter Indwelling Catheter Indwelling Catheter # Bowel Movements 1 - Exam GENERAL DESCRIPTION: An elderly female lying in bed in no distress RESPIRATORY SYSTEM: Unlabored breathing , decreased breath sounds at bases HEART: S1 S2 regular rate and rhythm , ABDOMEN: Soft , no tenderness EXTREMITIES: Lower extremity wounds are currently dressed - Labs CBC & Chem 7: 08/29/21 08:56 08/29/21 08:56 Labs: Abnormal Lab Results - Last 24 Hours (Table) 08/30/21 08/31/21 08/31/21 Range/Units 20:40 06:25 11:50 POC Glucose (mg/dL) 175 H 160 H 153 H (75-99) mg/dL Assessment and Plan (1) Non-pressure chronic ulcer of other part of left foot with fat layer exposed Current Visit: No Status: Acute Code(s): L97.522 - NON-PRS CHRONIC ULCER OTH PRT LEFT FOOT W FAT LAYER EXPOSED SNOMED Code(s): 083302140 (2) Non-pressure ulcer of left lower extremity with fat layer exposed Current Visit: No Status: Acute Code(s): L97.922 - NON-PRS CHR ULC UNSP PRT OF L LOW LEG W FAT LAYER EXPOSED SNOMED Code(s): 10196759 (3) Postoperative wound dehiscence Current Visit: No Status: Acute Code(s): T81.31XA - DISRUPTION OF EXTERNAL OPERATION (SURGICAL) WOUND, NEC, INIT SNOMED Code(s): 279344103 Plan: 1patient with a nonhealing wound to the left groin with slough tissue but no evidence of cellulitis, patient is currently being treated with the Santyl followed by moist dressing change daily. 2patient with left thigh and leg wound with no slough tissue or surrounding redness , patient currently being treated with dry Aquacel silver dressing. 3patient with stage II pressure ulcer of the left heel area with no surrounding cellulitis, patient currently being treated with the dry Aquacel silver dressing daily of the pressure. 4patient with a stage I pressure ulcer to the right heel area with no open wound or any cellulitis to continue local care by keeping the area dry and off the pressure , patient currently doing well off antibiotics and will continue monitor the patient closely off antibiotic therapy 5-positive urine culture with yeast more likely colonization as the patient has no urinary symptoms will monitor closely off Diflucan Time with Patient: Less than 30
[2021-09-01] MEDS: INSULIN ASPART (NovoLOG) 100 UNIT/ML VIAL SQ SCH ×4 (06:29→19:53)
[2021-09-01] MEDS: PANTOPRAZOLE 40 MG TABLET PO SCH (06:30)
[2021-09-01 06:37] LABS: Glucose,Whole Blood 129 mg/dL (75-99)
[2021-09-01] MEDS: LACTULOSE 20 GM/30 ML CUP PO SCH ×3 (09:08→19:51)
[2021-09-01] MEDS: TAMSULOSIN 0.4 MG CAP.ER.24H PO SCH (09:08)
[2021-09-01] MEDS: polyethylene glycoL 3350 17 GM POWD.PACK PO SCH (09:08)
[2021-09-01] MEDS: CLOPIDOGREL 75 MG TAB PO SCH (09:08)
[2021-09-01 10:01] LABS: Basophils % (A) 0 %; Eosinophils % (A) 0 %; HCT 29.4 % (34.0-46.0); HGB 9.2 gm/dL (11.4-16.0); Hypochromasia Marked; Lymphocytes # (A) 1.2 k/uL (1.0-4.8); Lymphocytes % (A) 10 %; MCH 28.1 pg (25.0-35.0); MCHC 31.3 g/dL (31.0-37.0); MCV 89.8 fL (80.0-100.0); Mean Platelet Volume 6.8; Monocytes # (A) 0.4 k/uL (0-1.0); Monocytes % (A) 3 %; Neutrophils # (A) 10.1 k/uL (1.3-7.7); Neutrophils % (A) 85 %; Platelet Count 505 k/uL (150-450); RBC 3.27 m/uL (3.80-5.40); RDW 15.1 % (11.5-15.5); WBC 11.9 k/uL (3.8-10.6)
[2021-09-01 10:10] LABS: Albumin 2.2 g/dL (3.5-5.0); Calcium 8.1 mg/dL (8.4-10.2); Potassium 3.6 mmol/L (3.5-5.1); Total Bilirubin 0.5 mg/dL (0.2-1.3); Total Protein 5.6 g/dL (6.3-8.2)
[2021-09-01 11:46] LABS: Glucose,Whole Blood 113 mg/dL (75-99)
--- NOTE | 2021-09-01 13:10 | P.PN ---
Subjective Progress Note Date: 09/01/21 Principal diagnosis: Hgb trending upwards. Denies any blood stools yesterday or today. Stable from a general surgery standpoint for discharge when medically stable Objective - Vital Signs Vital signs: Vital Signs Temp 99 F 09/01/21 12:00 Pulse 82 09/01/21 12:00 Resp 16 09/01/21 12:00 BP 132/75 09/01/21 12:00 Pulse Ox 96 09/01/21 12:00 Intake & Output 08/31/21 09/01/21 09/01/21 18:59 06:59 18:59 Intake Total 485 0 Output Total 350 Balance -350 485 0 Intake: Intake, IV Titration 0 Amount IV Fluid Continuation 1, 0 000 ml @ 0 mls/hr IV .[employer] [facility] Rx#:[id number] Oral 485 Output: Urine 350 Other: Voiding Method Indwelling Catheter Indwelling Catheter Indwelling Catheter # Voids 350 # Bowel Movements 1 0 - Labs CBC & Chem 7: 09/01/21 09:08 09/01/21 09:08 Labs: Abnormal Lab Results - Last 24 Hours (Table) 08/31/21 08/31/21 09/01/21 Range/Units 16:35 19:55 06:04 WBC (3.8-10.6) k/uL RBC (3.80-5.40) m/uL Hgb (11.4-16.0) gm/dL Hct (34.0-46.0) % Plt Count (150-450) k/uL Neutrophils # (1.3-7.7) k/uL Sodium (137-145) mmol/L BUN (7-17) mg/dL Creatinine (0.52-1.04) mg/dL Glucose (74-99) mg/dL POC Glucose (mg/dL) 127 H 140 H 129 H (75-99) mg/dL Calcium (8.4-10.2) mg/dL Alkaline Phosphatase (38-126) U/L Total Protein (6.3-8.2) g/dL Albumin (3.5-5.0) g/dL 09/01/21 09/01/21 09/01/21 Range/Units 09:08 09:08 11:44 WBC 11.9 H (3.8-10.6) k/uL RBC 3.27 L (3.80-5.40) m/uL Hgb 9.2 L (11.4-16.0) gm/dL Hct 29.4 L (34.0-46.0) % Plt Count 505 H (150-450) k/uL Neutrophils # 10.1 H (1.3-7.7) k/uL Sodium 133 L (137-145) mmol/L BUN 21 H (7-17) mg/dL Creatinine 1.63 H (0.52-1.04) mg/dL Glucose 110 H (74-99) mg/dL POC Glucose (mg/dL) 113 H (75-99) mg/dL Calcium 8.1 L (8.4-10.2) mg/dL Alkaline Phosphatase 128 H (38-126) U/L Total Protein 5.6 L (6.3-8.2) g/dL Albumin 2.2 L (3.5-5.0) g/dL Assessment and Plan (1) Peripheral vascular occlusive disease Current Visit: Yes Status: Acute Code(s): I73.9 - PERIPHERAL VASCULAR DISEASE, UNSPECIFIED SNOMED Code(s): 729876131 (2) Gastrointestinal bleeding Current Visit: Yes Status: Acute Code(s): K92.2 - GASTROINTESTINAL HEMORRHAGE, UNSPECIFIED SNOMED Code(s): 54302771 (3) Gastritis Current Visit: Yes Status: Acute Code(s): K29.70 - GASTRITIS, UNSPECIFIED, WITHOUT BLEEDING SNOMED Code(s): 3079160 (4) Antiplatelet or antithrombotic long-term use Current Visit: Yes Status: Acute Code(s): Z79.02 - ANSWERING SERVICE TELEPHONE OPERATOR (CURRENT) USE OF ANTITHROMBOTICS/ANTIPLATELETS SNOMED Code(s): 025885118 (5) Anemia Current Visit: Yes Status: Acute Priority: Medium Code(s): D64.9 - ANEMIA, UNSPECIFIED SNOMED Code(s): 840278270
[2021-09-01 14:51] LABS: Appearance,Urine Cloudy (Clear); Bacteria,Urine Many /hpf; Bilirubin,Urine Negative (Negative); Blood,Urine Trace (Negative); Budding Yeast,Urine Rare /hpf; Color,Urine Yellow; Glucose,Urine (UA) Negative (Negative); Ketones,Urine Negative (Negative); Leukocyte Esterase,Urine Large (Negative); Mucus,Urine Rare /hpf; Nitrite,Urine Positive (Negative); Protein,Urine Trace (Negative); RBC,Urine 16 /hpf (0-5); Specific Gravity,Urine 1.014 (1.001-1.035); Urobilinogen,Urine <2.0 mg/dL (<2.0); WBC,Urine >182 /hpf (0-5)
[2021-09-01] MEDS: HYDROcodone/APAP 5-325MG 1 EACH TAB PO PRN (15:26)
[2021-09-01 16:57] LABS: Glucose,Whole Blood 104 mg/dL (75-99)
[2021-09-01] MEDS: LACTATED RINGERS 1,000 ML IV SCH (17:02)
--- NOTE | 2021-09-01 17:15 | PN ---
PROGRESS NOTE DATE OF SERVICE: 09/01/2021 This 70-year-old woman who was admitted with symptomatic anemia also had constipation. The patient had bowel movement after lactulose. No chest pain. No palpitations. No fever. The patient has cloudy urine. PHYSICAL EXAMINATION: Pulse 62, blood pressure 132/74, respirations 16. CHEST: Clear to auscultation. CARDIOVASCULAR: S1, S2 muffled. ABDOMEN: Soft, nontender. NERVOUS SYSTEM: Diffusely weak. LABS: Reviewed. ASSESSMENT: 1. Symptomatic anemia. No active evidence of GI bleed. Possibly iron deficient anemia. 2. Constipation. 3. Hypovolemic hyponatremia. 4. Status post left femoropopliteal in-situ bypass. RECOMMENDATIONS AND DISCUSSION: I recommend to continue current medications, continue with the monitoring, symptomatic treatment. Continue with the constipation regimen. Otherwise, UA and urine culture to rule out the possibility of UTI. Further recommendations to follow. MMODL / IJN: [id number] /
[2021-09-01 19:55] LABS: Glucose,Whole Blood 90 mg/dL (75-99)
[2021-09-01] MEDS: ATORVASTATIN 20 MG TAB PO SCH (20:00)
[2021-09-01] MEDS: COLLAGENASE 250 UNIT/GM OINTMENT 30 GM TUBE TOPICAL SCH (20:01)
--- NOTE | 2021-09-01 22:36 | P.PN ---
Subjective Progress Note Date: 09/01/21 Principal diagnosis: Left groin and lower extremity wounds Patient is a 77-year-old female with a past medical history significant for left ankle fracture status post a subsequently wound dehiscence requiring debridement culture were negative for the patient did have a left lower extremity revascularization no admitted to the hospital with anemia and some drainage from the wounds. Patient did have anemia and is status post EGD the 20 10/25/2021 with evidence of antral gastritis On today's evaluation that is 09/01/2021, the patient remains to be afebrile, the patient is breathing comfortably on room air, the patient denies chest pain shortness of breath or cough , the patient denies abdominal pain , The patient pain to the left lower extremity wound area is currently controlled, Objective - Vital Signs Vital signs: Vital Signs Temp 99 F 09/01/21 12:00 Pulse 82 09/01/21 12:00 Resp 16 09/01/21 12:00 BP 132/75 09/01/21 12:00 Pulse Ox 96 09/01/21 12:00 Intake & Output 08/31/21 09/01/21 09/01/21 18:59 06:59 18:59 Intake Total 485 0 Output Total 350 Balance -350 485 0 Intake: Intake, IV Titration 0 Amount IV Fluid Continuation 1, 0 000 ml @ 0 mls/hr IV .[employer] [facility] Rx#:[id number] Oral 485 Output: Urine 350 Other: Voiding Method Indwelling Catheter Indwelling Catheter Indwelling Catheter # Voids 350 # Bowel Movements 1 0 - Exam GENERAL DESCRIPTION: An elderly female lying in bed in no distress RESPIRATORY SYSTEM: Unlabored breathing , decreased breath sounds at bases HEART: S1 S2 regular rate and rhythm , ABDOMEN: Soft , no tenderness EXTREMITIES: Lower extremity wounds are currently dressed - Labs CBC & Chem 7: 09/01/21 09:08 09/01/21 09:08 Labs: Abnormal Lab Results - Last 24 Hours (Table) 08/31/21 08/31/21 09/01/21 Range/Units 16:35 19:55 06:04 WBC (3.8-10.6) k/uL RBC (3.80-5.40) m/uL Hgb (11.4-16.0) gm/dL Hct (34.0-46.0) % Plt Count (150-450) k/uL Neutrophils # (1.3-7.7) k/uL Sodium (137-145) mmol/L BUN (7-17) mg/dL Creatinine (0.52-1.04) mg/dL Glucose (74-99) mg/dL POC Glucose (mg/dL) 127 H 140 H 129 H (75-99) mg/dL Calcium (8.4-10.2) mg/dL Alkaline Phosphatase (38-126) U/L Total Protein (6.3-8.2) g/dL Albumin (3.5-5.0) g/dL Urine Appearance (Clear) Urine Protein (Negative) Urine Blood (Negative) Urine Nitrite (Negative) Ur Leukocyte Esterase (Negative) Urine RBC (0-5) /hpf Urine WBC (0-5) /hpf Urine WBC Clumps (None) /hpf Urine Bacteria (None) /hpf Urine Mucus (None) /hpf Urine Yeast (Budding) (None) /hpf 09/01/21 09/01/21 09/01/21 Range/Units 09:08 09:08 11:44 WBC 11.9 H (3.8-10.6) k/uL RBC 3.27 L (3.80-5.40) m/uL Hgb 9.2 L (11.4-16.0) gm/dL Hct 29.4 L (34.0-46.0) % Plt Count 505 H (150-450) k/uL Neutrophils # 10.1 H (1.3-7.7) k/uL Sodium 133 L (137-145) mmol/L BUN 21 H (7-17) mg/dL Creatinine 1.63 H (0.52-1.04) mg/dL Glucose 110 H (74-99) mg/dL POC Glucose (mg/dL) 113 H (75-99) mg/dL Calcium 8.1 L (8.4-10.2) mg/dL Alkaline Phosphatase 128 H (38-126) U/L Total Protein 5.6 L (6.3-8.2) g/dL Albumin 2.2 L (3.5-5.0) g/dL Urine Appearance (Clear) Urine Protein (Negative) Urine Blood (Negative) Urine Nitrite (Negative) Ur Leukocyte Esterase (Negative) Urine RBC (0-5) /hpf Urine WBC (0-5) /hpf Urine WBC Clumps (None) /hpf Urine Bacteria (None) /hpf Urine Mucus (None) /hpf Urine Yeast (Budding) (None) /hpf 09/01/21 Range/Units 13:49 WBC (3.8-10.6) k/uL RBC (3.80-5.40) m/uL Hgb (11.4-16.0) gm/dL Hct (34.0-46.0) % Plt Count (150-450) k/uL Neutrophils # (1.3-7.7) k/uL Sodium (137-145) mmol/L BUN (7-17) mg/dL Creatinine (0.52-1.04) mg/dL Glucose (74-99) mg/dL POC Glucose (mg/dL) (75-99) mg/dL Calcium (8.4-10.2) mg/dL Alkaline Phosphatase (38-126) U/L Total Protein (6.3-8.2) g/dL Albumin (3.5-5.0) g/dL Urine Appearance Cloudy H (Clear) Urine Protein Trace H (Negative) Urine Blood Trace H (Negative) Urine Nitrite Positive H (Negative) Ur Leukocyte Esterase Large H (Negative) Urine RBC 16 H (0-5) /hpf Urine WBC >182 H (0-5) /hpf Urine WBC Clumps Few H (None) /hpf Urine Bacteria Many H (None) /hpf Urine Mucus Rare H (None) /hpf Urine Yeast (Budding) Rare H (None) /hpf Assessment and Plan (1) Non-pressure chronic ulcer of other part of left foot with fat layer exposed Current Visit: No Status: Acute Code(s): L97.522 - NON-PRS CHRONIC ULCER OTH PRT LEFT FOOT W FAT LAYER EXPOSED SNOMED Code(s): 592522183 (2) Non-pressure ulcer of left lower extremity with fat layer exposed Current Visit: No Status: Acute Code(s): L97.922 - NON-PRS CHR ULC UNSP PRT OF L LOW LEG W FAT LAYER EXPOSED SNOMED Code(s): 92524501 (3) Postoperative wound dehiscence Current Visit: No Status: Acute Code(s): T81.31XA - DISRUPTION OF EXTERNAL OPERATION (SURGICAL) WOUND, NEC, INIT SNOMED Code(s): 208729304 Plan: 1patient with a nonhealing wound to the left groin with slough tissue but no evidence of cellulitis, patient is currently being treated with the Santyl followed by moist dressing change daily. 2patient with left thigh and leg wound with no slough tissue or surrounding redness , patient currently being treated with dry Aquacel silver dressing. 3patient with stage II pressure ulcer of the left heel area with no surrounding cellulitis, patient currently being treated with the dry Aquacel silver dressing daily of the pressure. 4patient with a stage I pressure ulcer to the right heel area with no open wound or any cellulitis to continue local care by keeping the area dry and off the pressure 5Patient UA has been repeated significantly positive along with yeast will add Diflucan waiting for the culture finalized Time with Patient: Less than 30
[2021-09-02 06:02] LABS: Glucose,Whole Blood 82 mg/dL (75-99)
[2021-09-02] MEDS: INSULIN ASPART (NovoLOG) 100 UNIT/ML VIAL SQ SCH ×4 (06:06→21:48)
[2021-09-02] MEDS: PANTOPRAZOLE 40 MG TABLET PO SCH (06:07)
[2021-09-02] MEDS: LACTULOSE 20 GM/30 ML CUP PO SCH ×2 (08:54→21:48)
[2021-09-02] MEDS: CLOPIDOGREL 75 MG TAB PO SCH (08:58)
[2021-09-02] MEDS: FLUCONAZOLE 100 MG TAB PO SCH (08:58)
[2021-09-02] MEDS: TAMSULOSIN 0.4 MG CAP.ER.24H PO SCH (08:58)
[2021-09-02] MEDS: polyethylene glycoL 3350 17 GM POWD.PACK PO SCH (08:59)
--- NOTE | 2021-09-02 11:56 | P.PN ---
Subjective Progress Note Date: 09/02/21 CHIEF COMPLAINT: Anemia HISTORY OF PRESENT ILLNESS: Patient sitting up in bed comfortably. She denies any abdominal pain. Denies any nausea vomiting. She has been having bowel movements. Her nurse staff reported brown in color. She is eating. Possible discharge to [facility] later today. Hemoglobin yesterday stable at 9.2. Colonoscopy not completed during this admission due to patient refusing to do bowel prep. PHYSICAL EXAM: VITAL SIGNS: Reviewed. GENERAL: Well-developed in no acute distress. HEENT: No sclera icterus. Extraocular movements grossly intact. Moist buccal mucosa. Head is atraumatic, normocephalic. ABDOMEN: Soft. Nondistended. Nontender. NEUROLOGIC: Alert and oriented. Cranial nerves II through XII grossly intact. ASSESSMENT: 1. Anemia 2. Recent left lower extremity revascularization on Plavix 3. EGD revealing mild antral gastritis. No evidence of GI bleed. PLAN: -Patient can be discharged from surgical standpoint -Continue Protonix Physician Director Of Infection Control note has been reviewed by physician. Signing provider agrees with the documented findings, assessment, and plan of care. Objective - Vital Signs Vital signs: Vital Signs Temp 98.9 F 09/02/21 08:00 Pulse 81 09/02/21 08:00 Resp 16 09/02/21 08:00 BP 163/73 09/02/21 08:00 Pulse Ox 96 09/02/21 08:00 Intake & Output 09/01/21 09/02/21 09/02/21 18:59 06:59 18:59 Intake Total 0 240 Output Total 725 375 Balance -725 -135 Intake: Intake, IV Titration 0 Amount IV Fluid Continuation 1, 0 000 ml @ 0 mls/hr IV .[facility] Rx#:[id number] Lactated Ringers 1,000 ml 0 @ 20 mls/hr IV .[facility] Rx#:[id number] Oral 240 Output: Urine 725 375 Other: Voiding Method Indwelling Catheter Indwelling Catheter Indwelling Catheter # Voids 350 # Bowel Movements 1 - Labs CBC & Chem 7: 09/01/21 09:08 09/01/21 09:08 Labs: Abnormal Lab Results - Last 24 Hours (Table) 09/01/21 09/01/21 Range/Units 13:49 16:56 POC Glucose (mg/dL) 104 H (75-99) mg/dL Urine Appearance Cloudy H (Clear) Urine Protein Trace H (Negative) Urine Blood Trace H (Negative) Urine Nitrite Positive H (Negative) Ur Leukocyte Esterase Large H (Negative) Urine RBC 16 H (0-5) /hpf Urine WBC >182 H (0-5) /hpf Urine WBC Clumps Few H (None) /hpf Urine Bacteria Many H (None) /hpf Urine Mucus Rare H (None) /hpf Urine Yeast (Budding) Rare H (None) /hpf Microbiology - Last 24 Hours (Table) 09/01/21 13:49 Urine Culture - Preliminary Urine,Voided
[2021-09-02 12:27] LABS: Glucose,Whole Blood 85 mg/dL (75-99)
[2021-09-02 16:55] LABS: Glucose,Whole Blood 101 mg/dL (75-99)
--- NOTE | 2021-09-02 18:15 | P.PN ---
Subjective Progress Note Date: 09/02/21 Principal diagnosis: Anemia and Lower extremity wound Awaiting CBC today. Discharge was initially Objective - Vital Signs Vital signs: Vital Signs Temp 98.1 F 09/02/21 02:00 Pulse 93 09/02/21 02:00 Resp 16 09/02/21 02:00 BP 153/72 09/02/21 02:00 Pulse Ox 96 09/02/21 02:00 Intake & Output 09/01/21 09/02/21 09/02/21 18:59 06:59 18:59 Intake Total 0 240 Output Total 725 375 Balance -725 -135 Intake: Intake, IV Titration 0 Amount IV Fluid Continuation 1, 0 000 ml @ 0 mls/hr IV .[facility] Rx#:[id number] Lactated Ringers 1,000 ml 0 @ 20 mls/hr IV .Q24H [facility] Rx#:[id number] Oral 240 Output: Urine 725 375 Other: Voiding Method Indwelling Catheter Indwelling Catheter # Voids 350 # Bowel Movements 1 - Exam - Constitutional General appearance: Present: no acute distress - EENT Eyes: Present: EOMI ENT: Present: hearing grossly normal, normal oropharynx - Respiratory Respiratory: bilateral: CTA - Cardiovascular Rhythm: regular Heart sounds: normal: S1, S2 - Gastrointestinal General gastrointestinal: Present: normal bowel sounds, soft - Integumentary Integumentary Comment(s): Left lower extremity wound and incisions, currently bandaged - Neurologic Neurologic: Present: CNII-XII intact - Musculoskeletal Musculoskeletal: Present: generalized weakness - Psychiatric Psychiatric: Present: A&O x's 3 - Labs CBC & Chem 7: 09/01/21 09:08 09/01/21 09:08 Labs: Abnormal Lab Results - Last 24 Hours (Table) 09/01/21 09/01/21 09/01/21 Range/Units 09:08 09:08 11:44 WBC 11.9 H (3.8-10.6) k/uL RBC 3.27 L (3.80-5.40) m/uL Hgb 9.2 L (11.4-16.0) gm/dL Hct 29.4 L (34.0-46.0) % Plt Count 505 H (150-450) k/uL Neutrophils # 10.1 H (1.3-7.7) k/uL Sodium 133 L (137-145) mmol/L BUN 21 H (7-17) mg/dL Creatinine 1.63 H (0.52-1.04) mg/dL Glucose 110 H (74-99) mg/dL POC Glucose (mg/dL) 113 H (75-99) mg/dL Calcium 8.1 L (8.4-10.2) mg/dL Alkaline Phosphatase 128 H (38-126) U/L Total Protein 5.6 L (6.3-8.2) g/dL Albumin 2.2 L (3.5-5.0) g/dL Urine Appearance (Clear) Urine Protein (Negative) Urine Blood (Negative) Urine Nitrite (Negative) Ur Leukocyte Esterase (Negative) Urine RBC (0-5) /hpf Urine WBC (0-5) /hpf Urine WBC Clumps (None) /hpf Urine Bacteria (None) /hpf Urine Mucus (None) /hpf Urine Yeast (Budding) (None) /hpf 09/01/21 09/01/21 Range/Units 13:49 16:56 WBC (3.8-10.6) k/uL RBC (3.80-5.40) m/uL Hgb (11.4-16.0) gm/dL Hct (34.0-46.0) % Plt Count (150-450) k/uL Neutrophils # (1.3-7.7) k/uL Sodium (137-145) mmol/L BUN (7-17) mg/dL Creatinine (0.52-1.04) mg/dL Glucose (74-99) mg/dL POC Glucose (mg/dL) 104 H (75-99) mg/dL Calcium (8.4-10.2) mg/dL Alkaline Phosphatase (38-126) U/L Total Protein (6.3-8.2) g/dL Albumin (3.5-5.0) g/dL Urine Appearance Cloudy H (Clear) Urine Protein Trace H (Negative) Urine Blood Trace H (Negative) Urine Nitrite Positive H (Negative) Ur Leukocyte Esterase Large H (Negative) Urine RBC 16 H (0-5) /hpf Urine WBC >182 H (0-5) /hpf Urine WBC Clumps Few H (None) /hpf Urine Bacteria Many H (None) /hpf Urine Mucus Rare H (None) /hpf Urine Yeast (Budding) Rare H (None) /hpf Microbiology - Last 24 Hours (Table) 09/01/21 13:49 Urine Culture - Preliminary Urine,Voided Assessment and Plan (1) Acute renal insufficiency Current Visit: Yes Status: Acute Code(s): N28.9 - DISORDER OF KIDNEY AND URETER, UNSPECIFIED SNOMED Code(s): 657624411 (2) Anemia Narrative/Plan: Hemoglobin 7, pending continue daily CBC monitoring. Nephrology following. GI evaluation still needed, plan is tomorrow Current Visit: Yes Status: Acute Priority: Medium Code(s): D64.9 - ANEMIA, UNSPECIFIED SNOMED Code(s): 283425690
[2021-09-02 21:24] LABS: Glucose,Whole Blood 108 mg/dL (75-99)
[2021-09-02] MEDS: ATORVASTATIN 20 MG TAB PO SCH (21:47)
[2021-09-02] MEDS: COLLAGENASE 250 UNIT/GM OINTMENT 30 GM TUBE TOPICAL SCH (21:48)
--- NOTE | 2021-09-02 22:17 | P.PN ---
Subjective Progress Note Date: 09/02/21 Principal diagnosis: Left groin and lower extremity wounds Patient is a 77-year-old female with a past medical history significant for left ankle fracture status post a subsequently wound dehiscence requiring debridement culture were negative for the patient did have a left lower extremity revascularization no admitted to the hospital with anemia and some drainage from the wounds. Patient did have anemia and is status post EGD the 20 10/25/2021 with evidence of antral gastritis On today's evaluation that is 09/02/2021, the patient denies any fever or any chills, the patient is breathing comfortably on room air, the patient denies chest pain shortness of breath or cough , the patient denies abdominal pain , The patient pain to the left lower extremity wound area is currently controlled, the patient did have chronic indwelling Colby catheter and is not sure when the last time and the catheter was changed Objective - Vital Signs Vital signs: Vital Signs Temp 98.9 F 09/02/21 08:00 Pulse 81 09/02/21 08:00 Resp 16 09/02/21 08:00 BP 163/73 09/02/21 08:00 Pulse Ox 96 09/02/21 08:00 Intake & Output 09/01/21 09/02/21 09/02/21 18:59 06:59 18:59 Intake Total 0 240 Output Total 725 375 Balance -725 -135 Intake: Intake, IV Titration 0 Amount IV Fluid Continuation 1, 0 000 ml @ 0 mls/hr IV .[facility] Rx#:[id number] Lactated Ringers 1,000 ml 0 @ 20 mls/hr IV .Q24H [facility] Rx#:[id number] Oral 240 Output: Urine 725 375 Other: Voiding Method Indwelling Catheter Indwelling Catheter Indwelling Catheter # Voids 350 # Bowel Movements 1 - Exam GENERAL DESCRIPTION: An elderly female lying in bed in no distress RESPIRATORY SYSTEM: Unlabored breathing , decreased breath sounds at bases HEART: S1 S2 regular rate and rhythm , ABDOMEN: Soft , no tenderness EXTREMITIES: Lower extremity wounds are currently dressed - Labs CBC & Chem 7: 09/01/21 09:08 09/01/21 09:08 Labs: Abnormal Lab Results - Last 24 Hours (Table) 09/01/21 09/01/21 Range/Units 13:49 16:56 POC Glucose (mg/dL) 104 H (75-99) mg/dL Urine Appearance Cloudy H (Clear) Urine Protein Trace H (Negative) Urine Blood Trace H (Negative) Urine Nitrite Positive H (Negative) Ur Leukocyte Esterase Large H (Negative) Urine RBC 16 H (0-5) /hpf Urine WBC >182 H (0-5) /hpf Urine WBC Clumps Few H (None) /hpf Urine Bacteria Many H (None) /hpf Urine Mucus Rare H (None) /hpf Urine Yeast (Budding) Rare H (None) /hpf Microbiology - Last 24 Hours (Table) 09/01/21 13:49 Urine Culture - Preliminary Urine,Voided Assessment and Plan (1) Non-pressure chronic ulcer of other part of left foot with fat layer exposed Current Visit: No Status: Acute Code(s): L97.522 - NON-PRS CHRONIC ULCER OTH PRT LEFT FOOT W FAT LAYER EXPOSED SNOMED Code(s): 945609377 (2) Non-pressure ulcer of left lower extremity with fat layer exposed Current Visit: No Status: Acute Code(s): L97.922 - NON-PRS CHR ULC UNSP PRT OF L LOW LEG W FAT LAYER EXPOSED SNOMED Code(s): 34366086 (3) Postoperative wound dehiscence Current Visit: No Status: Acute Code(s): T81.31XA - DISRUPTION OF EXTERNAL OPERATION (SURGICAL) WOUND, NEC, INIT SNOMED Code(s): 293988874 Plan: 1patient with a nonhealing wound to the left groin with slough tissue but no evidence of cellulitis, patient is currently being treated with the Santyl followed by moist dressing change daily. 2patient with left thigh and leg wound with no slough tissue or surrounding redness , patient currently being treated with dry Aquacel silver dressing. 3patient with stage II pressure ulcer of the left heel area with no surrounding cellulitis, patient currently being treated with the dry Aquacel silver dressing daily of the pressure. 4patient with a stage I pressure ulcer to the right heel area with no open wound or any cellulitis to continue local care by keeping the area dry and off the pressure 5positive UA with a question of possible Colby colonization versus catheter associated UTI, Colby catheter will be changed a UA and cultures were obtained from the Colby continue with the Diflucan while waiting for the culture finalized Time with Patient: Less than 30
--- NOTE | 2021-09-03 00:57 | P.PN ---
Subjective Progress Note Date: 09/02/21 Patient is a 70-year-old female with a known history of hypertension, hyperlipidemia, peripheral vascular disease status post left femoropopliteal in situ vein bypass with a left common femoral artery thromboendarterectomy with patch angioplasty on 07/29/2021, nonhealing left ankle fracture wound and pre vious history of smoking was sent to hospital from the rehab due to low hemoglobin level. Otherwise denied any hematemesis melena. No cough or sputum production. No chest pain or shortness of. No complaints of abdominal pain. Patient is also feeling weak and lethargic. On admission hemoglobin found to be 4.7 and patient was given 1 unit of PRBC. Repeat hemoglobin this morning showed at 7.5. No active bleeding at the left ankle surgical site noted. Other laboratory showed WBC 9.5 hemoglobin 4.7 platelets 411 MCV 87.8 Sodium 133 potassium 4.2 chloride 104 bicarb is 22 BUN 31 and creatinine 2.05 Previous creatinine level 0.93 about a week ago. Calcium 8.1 liver enzymes are not elevated and troponin is 0.140 and albumin 2.5. 08/23/2021 Patient is currently resting in the bed. Awake alert and oriented x3. No complaints of chest pain or shortness of. Tolerating oral diet. Otherwise patient did not have any bowel movement lower the last few days. Denied any complaints of lower extremity pain. Laboratory data showed hemoglobin 7.8 and platelets 341 sodium 132 potassium 4.4 chloride 105 BUN 3020 creatinine improved to 1.94. Patient is being continued on IV hydration with normal saline. Troponin trending down to 0.114. No complaints of chest pain or shortness breath. No headache or dizziness or lightheadedness. Procalcitonin 0.18 and CRP levels 4.5. ID has seen the patient and continue with local wound care and moist dressing change daily. No further antibiotic therapy recommended. Hematology was consulted and anemia and hemolysis work-up was ordered. 08/24/2021 Patient is currently resting alert. Recollecting when x3. Denied any complaints of chest pain or shortness of breath. No headache or dizziness or lightheadedness. Leg pain is improved. No active bleeding noted. Otherwise patient is having constipation and is being continued softeners and laxatives. Patient has been afebrile. Lab data showed WBC 7.1 hemoglobin improved to 8.1 platelets 389 sodium 132, potassium 4.3 chloride 103 BUN 3020 creatinine 1.82 Calcium 8.0. Patient is iron deficient. 08/25/2021 Patient is currently lying in the bed. Awake alert and oriented. No complaints of chest pain or shortness of breath. Denies any leg pain. No fever no chills. Patient is being current on left lower extremity wound care. Otherwise laboratory data showed WBC 8.2 hemoglobin 7.6 and platelets 399. Patient is being continued on IV supplementation IV iron. Sodium 130 potassium 4.6 chloride 103 BUN 34 and creatinine 1.90 also on IV hydration. Tolerating oral diet slowly. General surgery was consulted for evaluation of GI bleeding. ID and hematology is on board. 08/26/2021 She doesn't have any more bleeding patient is now without stools or blood in the stools. Patient is clinically doing well. Patient will undergo colonoscopy and upper GI endoscopy. Patient's hemoglobin remained stable creatinine remains stable patient is off vancomycin. 08/27/2021 Patient will undergo EGD and colonoscopy today. Patient's hemoglobin remained stable serum sodium is improving. Patient today is receiving IV fluids with. Patient's the creatinine is improving presently 1.6 which is not baseline yet because of which I'll continue with IV fluids today recheck basic metabolic profile tomorrow possibility of discharge tomorrow. 08/28/2021 Because of poor prep patient was unable to undergo colonoscopy yesterday patient is doing prep today. After colonoscopy patient probably can be discharged tomorrow patient is otherwise medically stable creatinine is slowly improving patient renal failure is secondary to probably nonsteroidal anti-inflammatory medication, vancomycin and dehydration patient remains on IV fluids which I'll cut it down to 75 mL per hour. 08/30/2021 Patient is seen and evaluated in follow-up with multiple medical consultations following. Gen. surgery following as there are plans for colonoscopy although patient unable to do the prep and will follow-up in the outpatient setting with general surgery. Per nursing staff and patient unsure of last bowel movement in patient with mild distention of the abdomen with some discomfort as well on palpation. Patient was given a dose of lactulose and seen again by general surgery recommending outpatient follow-up. Repeat abdominal x-ray yesterday shows multiple air-filled loops of bowel which are nonspecific to correlate for ileus with no stenosis is suspicious changes for obstruction identified at this time and no significant fecal retention is evident. This was discussed the general surgery and the air most likely associated with recent EGD. Will add lactulose every 4 hours until bowel movement. Patient reports not eating very much at all as well. Patient is continued on clear liquids and may advance as tolerated. Continue with prophylactic Protonix and avoid NSAIDs if possible. Okay to resume Plavix per surgery. Patient denies chest pains or shortness of breath. Patient is afebrile. No reports of nausea or vomiting noted. Infectious disease also following. 09/02/2021 Patient is seen in follow up and is being closely monitored. Multiple medical consultations following. Patient had repeat urinalysis done and awaiting finalized cultures to determine need for antibiotics. ID following closely. Patient reports to having gas and bowel movements with no further bleeding noted. Patient continued with local wound care. Patient is afebrile. Patient denies any chest pain or palpitations. Patient reports to tolerating diet. Review of systems: Constitutional: Denied any fatigue denied any fever. Cardio vascular: denied any chest pain, palpitations Gastrointestinal denied any nausea vomiting Pulmonary: Denied any shortness of breath cough Neurologic denied any new focal deficits Active Medications Acetaminophen (Acetaminophen Tab 325 Mg Tab) 650 mg PO Q6H PRN PRN Reason: Mild Pain Last Admin: 08/23/21 22:04 Dose: 650 mg Documented by: Hydrocodone Bitart/Acetaminophen (Hydrocodone/Apap 5-325mg 1 Each Tab) 1 each PO Q6HR PRN PRN Reason: Pain Last Admin: 09/01/21 15:26 Dose: 1 each Documented by: Atorvastatin Calcium (Atorvastatin 20 Mg Tab) 20 mg PO HS@1999 [facility] Last Admin: 09/02/21 21:47 Dose: 20 mg Documented by: Bisacodyl (Bisacodyl 10 Mg Supp) 10 mg RECTAL DAILY PRN PRN Reason: Constipation Last Admin: 08/31/21 12:37 Dose: 10 mg Documented by: Clopidogrel Bisulfate (Clopidogrel 75 Mg Tab) 75 mg PO DAILY [facility] Last Admin: 09/02/21 08:58 Dose: 75 mg Documented by: Collagenase (Collagenase 250 Unit/Gm Ointment 30 Gm Tube) 1 applic [facility]; Protocol Last Admin: 09/02/21 21:48 Dose: Not Given Documented by: Docusate Sodium (Docusate 100 Mg Cap) 100 mg PO DAILY PRN PRN Reason: Constipation Last Admin: 08/25/21 08:35 Dose: 100 mg Documented by: Fluconazole (Fluconazole 100 Mg Tab) 100 mg PO DAILY [facility]; Protocol Last Admin: 09/02/21 08:58 Dose: 100 mg Documented by: Lactated Ringer's (Lactated Ringers) 1,000 mls @ 20 mls/hr IV .Q24H [facility] Last Admin: 09/01/21 17:02 Dose: Not Given Documented by: Ceftriaxone Sodium 2 gm/ (Sodium Chloride) 50 mls @ 100 mls/hr IVPB Q24HR [facility]; Protocol Insulin Aspart (Insulin Aspart (Novolog) 100 Unit/Ml Vial) 0 unit SQ ACHS [facility]; Protocol Last Admin: 09/02/21 21:48 Dose: Not Given Documented by: Lactulose (Lactulose 20 Gm/30 Ml Cup) 30 gm PO BID [facility] Last Admin: 09/02/21 21:48 Dose: Not Given Documented by: Lidocaine HCl (Lidocaine 1% (10mg/Ml) For Iv Start) 0.1 ml INTRADERMA PER PROTOCOL PRN PRN Reason: IV Start Naloxone HCl (Naloxone 0.4 Mg/Ml 1 Ml Vial) 0.2 mg IV Q2M PRN PRN Reason: Opioid Reversal Ondansetron HCl (Ondansetron 4 Mg/2 Ml Vial) 4 mg IVP Q8HR PRN PRN Reason: Nausea And Vomiting Last Admin: 08/30/21 20:59 Dose: 4 mg Documented by: Pantoprazole Sodium (Pantoprazole 40 Mg Tablet) 40 mg PO AC-BRKFST [facility] Last Admin: 09/02/21 06:07 Dose: Not Given Documented by: Polyethylene Glycol (Polyethylene Glycol 3350 17 Gm Powd.Pack) 17 gm PO DAILY [facility] Last Admin: 09/02/21 08:59 Dose: 17 gm Documented by: Tamsulosin HCl (Tamsulosin 0.4 Mg Cap.Er.24h) 0.4 mg PO DAILY [facility] Last Admin: 09/02/21 08:58 Dose: 0.4 mg Documented by: PHYSICAL EXAMINATION: Patient is lying in the bed, awake alert and oriented.. HEENT: Normocephalic. Neck is supple. Pupils reactive. Nostrils clear. Oral cavity is moist. Neck: reveals no JVD, carotid bruits, or thyromegaly. CHEST EXAMINATION: Trachea is central. Symmetrical expansion. Bibasilar diminished sounds, with no wheezing noted. Some scattered rhonchi noted CARDIAC: S1, S2 are muffled ABDOMEN: Soft. non-distended, non-tender on palpation. Bowel sounds normal. No organomegaly. No abdominal bruits. Extremities: reveal no edema. No clubbing or cyanosis Neurologically awake, alert, oriented x3 with well-coordinated movements. No focal deficits noted, diffusely weak Skin: No rash or skin lesions. Psychiatric: Cooperative. Non-suicidal Musculoskeletal: No joint swelling or deformity. Normal range of motion. Assessment: Symptomatic anemia, No evidence of acute GI bleed Iron deficiency anemia Possible acute urinary tract infection, possibly secondary to chronic indwelling elias catheter Acute kidney injury likely prerenal. possible ATN, improved Elevated troponin. likely demand ischemia. Hypovolemic hyponatremia Constipation Nonhealing left ankle ulcer stage 2. No active bleeding noted. Status post left femoropopliteal in situ vein graft, left, femoral artery thromboendarterectomy with patch angioplasty on 07/29/2021. Hypertension Hyperlipidemia Diabetes type 2 [id number] History of [place] Previous history of smoking Plan: Recommend to continue with current medications and management. Patient being followed by ID. Repeat Ua and culture done and culture growing gram negative and will add Ceftriaxone while awaiting for culture to finalize. Patient denies pain or frequency with urination, but patient continues with indwelling elias catheter. Patient was having some zak in the initial urine sample and maintained on Diflucan. Patient is afebrile. Patient also reports to having bowel movements. No bleeding noted. Recommend repeat am labs and will await cultures. Encourage oral intake and also continue with PT/OT therapy. Case management and social work following with plans for possible ECF once stabilized and discharged. Patient to continue with indwelling Elias catheter for now for close monitoring of intake and output. Continue with local wound care to the left lower extremity and appropriate home medications have been resumed. Due to multiple complex medical issues, prognosis is guarded. The impression and plan of care has been dictated by Nell Mendez, Nurse Practitioner as directed. Dr. Prashant MD I have performed a history and examination and MDM of this patient, discussed the same with the dictator, and agree with the dictator's assessment and plan as written ,documented as a scribe. Based on total visit time, I have performed more than 50% of the visit. Objective - Vital Signs Vital signs: Vital Signs Temp 98.1 F 09/02/21 02:00 Pulse 93 09/02/21 02:00 Resp 16 09/02/21 02:00 BP 153/72 09/02/21 02:00 Pulse Ox 96 09/02/21 02:00 Intake & Output 09/01/21 09/02/21 09/02/21 18:59 06:59 18:59 Intake Total 0 240 Output Total 725 375 Balance -725 -135 Intake: Intake, IV Titration 0 Amount IV Fluid Continuation 1, 0 000 ml @ 0 mls/hr IV .[facility] Rx#:[id number] Lactated Ringers 1,000 ml 0 @ 20 mls/hr IV .Q24H [facility] Rx#:[id number] Oral 240 Output: Urine 725 375 Other: Voiding Method Indwelling Catheter Indwelling Catheter # Voids 350 # Bowel Movements 1 - Labs CBC & Chem 7: 09/01/21 09:08 09/01/21 09:08 Labs: Abnormal Lab Results - Last 24 Hours (Table) 09/01/21 09/01/21 09/01/21 Range/Units 09:08 09:08 11:44 WBC 11.9 H (3.8-10.6) k/uL RBC 3.27 L (3.80-5.40) m/uL Hgb 9.2 L (11.4-16.0) gm/dL Hct 29.4 L (34.0-46.0) % Plt Count 505 H (150-450) k/uL Neutrophils # 10.1 H (1.3-7.7) k/uL Sodium 133 L (137-145) mmol/L BUN 21 H (7-17) mg/dL Creatinine 1.63 H (0.52-1.04) mg/dL Glucose 110 H (74-99) mg/dL POC Glucose (mg/dL) 113 H (75-99) mg/dL Calcium 8.1 L (8.4-10.2) mg/dL Alkaline Phosphatase 128 H (38-126) U/L Total Protein 5.6 L (6.3-8.2) g/dL Albumin 2.2 L (3.5-5.0) g/dL Urine Appearance (Clear) Urine Protein (Negative) Urine Blood (Negative) Urine Nitrite (Negative) Ur Leukocyte Esterase (Negative) Urine RBC (0-5) /hpf Urine WBC (0-5) /hpf Urine WBC Clumps (None) /hpf Urine Bacteria (None) /hpf Urine Mucus (None) /hpf Urine Yeast (Budding) (None) /hpf 09/01/21 09/01/21 Range/Units 13:49 16:56 WBC (3.8-10.6) k/uL RBC (3.80-5.40) m/uL Hgb (11.4-16.0) gm/dL Hct (34.0-46.0) % Plt Count (150-450) k/uL Neutrophils # (1.3-7.7) k/uL Sodium (137-145) mmol/L BUN (7-17) mg/dL Creatinine (0.52-1.04) mg/dL Glucose (74-99) mg/dL POC Glucose (mg/dL) 104 H (75-99) mg/dL Calcium (8.4-10.2) mg/dL Alkaline Phosphatase (38-126) U/L Total Protein (6.3-8.2) g/dL Albumin (3.5-5.0) g/dL Urine Appearance Cloudy H (Clear) Urine Protein Trace H (Negative) Urine Blood Trace H (Negative) Urine Nitrite Positive H (Negative) Ur Leukocyte Esterase Large H (Negative) Urine RBC 16 H (0-5) /hpf Urine WBC >182 H (0-5) /hpf Urine WBC Clumps Few H (None) /hpf Urine Bacteria Many H (None) /hpf Urine Mucus Rare H (None) /hpf Urine Yeast (Budding) Rare H (None) /hpf Microbiology - Last 24 Hours (Table) 09/01/21 13:49 Urine Culture - Preliminary Urine,Voided
[2021-09-03] MEDS: LACTATED RINGERS 1,000 ML IV SCH ×2 (05:13→17:40)
[2021-09-03] MEDS: PANTOPRAZOLE 40 MG TABLET PO SCH (06:28)
[2021-09-03 07:08] LABS: Glucose,Whole Blood 90 mg/dL (75-99)
[2021-09-03] MEDS: INSULIN ASPART (NovoLOG) 100 UNIT/ML VIAL SQ SCH ×4 (07:09→21:29)
[2021-09-03 09:30] LABS: Basophils % (A) 0 %; Eosinophils # (A) 0.1 k/uL (0-0.7); Eosinophils % (A) 1 %; HCT 27.8 % (34.0-46.0); HGB 8.6 gm/dL (11.4-16.0); Hypochromasia Marked; Lymphocytes # (A) 1.8 k/uL (1.0-4.8); Lymphocytes % (A) 21 %; MCH 27.6 pg (25.0-35.0); MCHC 30.8 g/dL (31.0-37.0); MCV 89.7 fL (80.0-100.0); Mean Platelet Volume 6.7; Monocytes # (A) 0.4 k/uL (0-1.0); Monocytes % (A) 5 %; Neutrophils # (A) 6.1 k/uL (1.3-7.7); Neutrophils % (A) 70 %; Platelet Count 425 k/uL (150-450); WBC 8.7 k/uL (3.8-10.6)
[2021-09-03 09:32] LABS: Calcium 7.8 mg/dL (8.4-10.2); Potassium 3.5 mmol/L (3.5-5.1)
[2021-09-03] MEDS: TAMSULOSIN 0.4 MG CAP.ER.24H PO SCH (09:38)
[2021-09-03] MEDS: FLUCONAZOLE 100 MG TAB PO SCH (09:39)
[2021-09-03] MEDS: CLOPIDOGREL 75 MG TAB PO SCH (09:39)
[2021-09-03] MEDS: polyethylene glycoL 3350 17 GM POWD.PACK PO SCH (09:39)
[2021-09-03] MEDS: LACTULOSE 20 GM/30 ML CUP PO SCH ×3 (09:40→21:31)
--- NOTE | 2021-09-03 10:12 | P.PN ---
Subjective Progress Note Date: 09/03/21 Principal diagnosis: normocytic anemia In follow-up today patient has no specific c/o, she is going to rehab. Denies bleeding. Tolerated IV iron well. Objective - Vital Signs Vital signs: Vital Signs Temp 98.7 F 09/03/21 08:00 Pulse 76 09/03/21 08:00 Resp 18 09/03/21 08:00 BP 158/69 09/03/21 08:00 Pulse Ox 97 09/03/21 08:00 Intake & Output 09/02/21 09/03/21 09/03/21 18:59 06:59 18:59 Intake Total 360 400 240 Output Total 550 1300 Balance -190 -900 240 Intake: Oral 360 400 240 Output: Urine 550 1300 Other: Voiding Method Indwelling Catheter Indwelling Catheter - Constitutional General appearance: Present: average body habitus, cooperative, no acute distress - EENT Eyes: Present: anicteric sclerae, EOMI ENT: Present: hearing grossly normal - Respiratory Respiratory: bilateral: CTA - Cardiovascular Rhythm: regular Heart sounds: normal: S1, S2 Abnormal Heart Sounds: Absent: systolic murmur, diastolic murmur, rub, S3 Gallop, S4 Gallop, click, other - Peripheral edema leg Peripheral Edema: bilateral: None - Gastrointestinal General gastrointestinal: Present: normal bowel sounds, soft - Integumentary Integumentary: Present: pale - Neurologic Neurologic: Present: CNII-XII intact - Musculoskeletal Musculoskeletal: Present: generalized weakness - Labs CBC & Chem 7: 09/03/21 08:40 09/03/21 08:40 Labs: Abnormal Lab Results - Last 24 Hours (Table) 09/02/21 09/02/21 09/03/21 Range/Units 16:46 21:22 08:40 RBC 3.10 L (3.80-5.40) m/uL Hgb 8.6 L (11.4-16.0) gm/dL Hct 27.8 L (34.0-46.0) % MCHC 30.8 L (31.0-37.0) g/dL Sodium (137-145) mmol/L BUN (7-17) mg/dL Creatinine (0.52-1.04) mg/dL Glucose (74-99) mg/dL POC Glucose (mg/dL) 101 H 108 H (75-99) mg/dL Calcium (8.4-10.2) mg/dL C-Reactive Protein (<1.0) mg/dL 09/03/21 Range/Units 08:40 RBC (3.80-5.40) m/uL Hgb (11.4-16.0) gm/dL Hct (34.0-46.0) % MCHC (31.0-37.0) g/dL Sodium 136 L (137-145) mmol/L BUN 21 H (7-17) mg/dL Creatinine 1.52 H (0.52-1.04) mg/dL Glucose 112 H (74-99) mg/dL POC Glucose (mg/dL) (75-99) mg/dL Calcium 7.8 L (8.4-10.2) mg/dL C-Reactive Protein 2.0 H (<1.0) mg/dL Microbiology - Last 24 Hours (Table) 09/01/21 13:49 Urine Culture - Preliminary Urine,Voided Gram Neg Bacilli Assessment and Plan (1) Anemia Narrative/Plan: Iron deficiency, provided with IV iron tolerated well. GI evaluation revealed nothing acute, mild gastritis, biopsy neg for infection. Has chronic wounds, chronic inflammation and a degree of chronic kidney disease that may also be contributing to patient's anemia. 2 units of blood on admit for hemoglobin of 4.7, stable Hemoglobin since. Appt in chart for follow-up with Hematology in the outpatient setting to monitor iron studies and provide parenteral iron as needed. CBC weekly while in rehab recommended to ensure stable Hgb. Current Visit: Yes Status: Acute Priority: Medium Code(s): D64.9 - ANEMIA, UNSPECIFIED SNOMED Code(s): 276340032
[2021-09-03 11:24] LABS: Glucose,Whole Blood 115 mg/dL (75-99)
--- NOTE | 2021-09-03 14:18 | P.PN ---
Subjective Progress Note Date: 09/03/21 Patient is a 70-year-old female with a known history of hypertension, hyperlipidemia, peripheral vascular disease status post left femoropopliteal in situ vein bypass with a left common femoral artery thromboendarterectomy with patch angioplasty on 07/29/2021, nonhealing left ankle fracture wound and pre vious history of smoking was sent to hospital from the rehab due to low hemoglobin level. Otherwise denied any hematemesis melena. No cough or sputum production. No chest pain or shortness of. No complaints of abdominal pain. Patient is also feeling weak and lethargic. On admission hemoglobin found to be 4.7 and patient was given 1 unit of PRBC. Repeat hemoglobin this morning showed at 7.5. No active bleeding at the left ankle surgical site noted. Other laboratory showed WBC 9.5 hemoglobin 4.7 platelets 411 MCV 87.8 Sodium 133 potassium 4.2 chloride 104 bicarb is 22 BUN 31 and creatinine 2.05 Previous creatinine level 0.93 about a week ago. Calcium 8.1 liver enzymes are not elevated and troponin is 0.140 and albumin 2.5. 08/23/2021 Patient is currently resting in the bed. Awake alert and oriented x3. No complaints of chest pain or shortness of. Tolerating oral diet. Otherwise patient did not have any bowel movement lower the last few days. Denied any complaints of lower extremity pain. Laboratory data showed hemoglobin 7.8 and platelets 341 sodium 132 potassium 4.4 chloride 105 BUN 3020 creatinine improved to 1.94. Patient is being continued on IV hydration with normal saline. Troponin trending down to 0.114. No complaints of chest pain or shortness breath. No headache or dizziness or lightheadedness. Procalcitonin 0.18 and CRP levels 4.5. ID has seen the patient and continue with local wound care and moist dressing change daily. No further antibiotic therapy recommended. Hematology was consulted and anemia and hemolysis work-up was ordered. 08/24/2021 Patient is currently resting alert. Recollecting when x3. Denied any complaints of chest pain or shortness of breath. No headache or dizziness or lightheadedness. Leg pain is improved. No active bleeding noted. Otherwise patient is having constipation and is being continued softeners and laxatives. Patient has been afebrile. Lab data showed WBC 7.1 hemoglobin improved to 8.1 platelets 389 sodium 132, potassium 4.3 chloride 103 BUN 3020 creatinine 1.82 Calcium 8.0. Patient is iron deficient. 08/25/2021 Patient is currently lying in the bed. Awake alert and oriented. No complaints of chest pain or shortness of breath. Denies any leg pain. No fever no chills. Patient is being current on left lower extremity wound care. Otherwise laboratory data showed WBC 8.2 hemoglobin 7.6 and platelets 399. Patient is being continued on IV supplementation IV iron. Sodium 130 potassium 4.6 chloride 103 BUN 34 and creatinine 1.90 also on IV hydration. Tolerating oral diet slowly. General surgery was consulted for evaluation of GI bleeding. ID and hematology is on board. 08/26/2021 She doesn't have any more bleeding patient is now without stools or blood in the stools. Patient is clinically doing well. Patient will undergo colonoscopy and upper GI endoscopy. Patient's hemoglobin remained stable creatinine remains stable patient is off vancomycin. 08/27/2021 Patient will undergo EGD and colonoscopy today. Patient's hemoglobin remained stable serum sodium is improving. Patient today is receiving IV fluids with. Patient's the creatinine is improving presently 1.6 which is not baseline yet because of which I'll continue with IV fluids today recheck basic metabolic profile tomorrow possibility of discharge tomorrow. 08/28/2021 Because of poor prep patient was unable to undergo colonoscopy yesterday patient is doing prep today. After colonoscopy patient probably can be discharged tomorrow patient is otherwise medically stable creatinine is slowly improving patient renal failure is secondary to probably nonsteroidal anti-inflammatory medication, vancomycin and dehydration patient remains on IV fluids which I'll cut it down to 75 mL per hour. 08/30/2021 Patient is seen and evaluated in follow-up with multiple medical consultations following. Gen. surgery following as there are plans for colonoscopy although patient unable to do the prep and will follow-up in the outpatient setting with general surgery. Per nursing staff and patient unsure of last bowel movement in patient with mild distention of the abdomen with some discomfort as well on palpation. Patient was given a dose of lactulose and seen again by general surgery recommending outpatient follow-up. Repeat abdominal x-ray yesterday shows multiple air-filled loops of bowel which are nonspecific to correlate for ileus with no stenosis is suspicious changes for obstruction identified at this time and no significant fecal retention is evident. This was discussed the general surgery and the air most likely associated with recent EGD. Will add lactulose every 4 hours until bowel movement. Patient reports not eating very much at all as well. Patient is continued on clear liquids and may advance as tolerated. Continue with prophylactic Protonix and avoid NSAIDs if possible. Okay to resume Plavix per surgery. Patient denies chest pains or shortness of breath. Patient is afebrile. No reports of nausea or vomiting noted. Infectious disease also following. 09/02/2021 Patient is seen in follow up and is being closely monitored. Multiple medical consultations following. Patient had repeat urinalysis done and awaiting finalized cultures to determine need for antibiotics. ID following closely. Patient reports to having gas and bowel movements with no further bleeding noted. Patient continued with local wound care. Patient is afebrile. Patient denies any chest pain or palpitations. Patient reports to tolerating diet. 09/03/2021 Patient is seen this morning in follow-up with multiple medical consultations following. Repeat urinalysis growing gram-negative bacilli and awaiting for finalized cultures. Patient reports to having a chronic Elias since her initial admission to in [facility] after fracturing her ankle. Patient also has pre-existing cristian in the left ankle per nursing staff and has not been seen or evaluated by orthopedics and will consult orthopedics for possible removal of these. Recommend continued local wound care. Infectious disease following as well. Patient was initiated on Rocephin and awaiting for finalized cultures. Patient is eager and wanting to return to [facility]. She denies any chest pain, shortness of breath, or palpitations. Patient is afebrile. No reports of nausea or vomiting and patient is tolerating diet. Review of systems: Constitutional: Denied any fatigue denied any fever. Cardio vascular: denied any chest pain, palpitations Gastrointestinal denied any nausea vomiting Pulmonary: Denied any shortness of breath or cough Neurologic denied any new focal deficits Active Medications Acetaminophen (Acetaminophen Tab 325 Mg Tab) 650 mg PO Q6H PRN PRN Reason: Mild Pain Last Admin: 08/23/21 22:04 Dose: 650 mg Documented by: Hydrocodone Bitart/Acetaminophen (Hydrocodone/Apap 5-325mg 1 Each Tab) 1 each PO Q6HR PRN PRN Reason: Pain Last Admin: 09/01/21 15:26 Dose: 1 each Documented by: Atorvastatin Calcium (Atorvastatin 20 Mg Tab) 20 mg PO HS@1999 [facility] Last Admin: 09/02/21 21:47 Dose: 20 mg Documented by: Bisacodyl (Bisacodyl 10 Mg Supp) 10 mg RECTAL DAILY PRN PRN Reason: Constipation Last Admin: 08/31/21 12:37 Dose: 10 mg Documented by: Clopidogrel Bisulfate (Clopidogrel 75 Mg Tab) 75 mg PO DAILY [facility] Last Admin: 09/02/21 08:58 Dose: 75 mg Documented by: Collagenase (Collagenase 250 Unit/Gm Ointment 30 Gm Tube) 1 applic TOPICAL HS [facility]; Protocol Last Admin: 09/02/21 21:48 Dose: Not Given Documented by: Docusate Sodium (Docusate 100 Mg Cap) 100 mg PO DAILY PRN PRN Reason: Constipation Last Admin: 08/25/21 08:35 Dose: 100 mg Documented by: Fluconazole (Fluconazole 100 Mg Tab) 100 mg PO DAILY [facility]; Protocol Last Admin: 09/02/21 08:58 Dose: 100 mg Documented by: Lactated Ringer's (Lactated Ringers) 1,000 mls @ 20 mls/hr IV .Q24H [facility] Last Admin: 09/03/21 05:13 Dose: Not Given Documented by: Ceftriaxone Sodium 2 gm/ (Sodium Chloride) 50 mls @ 100 mls/hr IVPB Q24HR [facility]; Protocol Insulin Aspart (Insulin Aspart (Novolog) 100 Unit/Ml Vial) 0 unit SQ ACHS [facility]; Protocol Last Admin: 09/03/21 07:09 Dose: Not Given Documented by: Lactulose (Lactulose 20 Gm/30 Ml Cup) 30 gm PO BID [facility] Last Admin: 09/02/21 21:48 Dose: Not Given Documented by: Lidocaine HCl (Lidocaine 1% (10mg/Ml) For Iv Start) 0.1 ml INTRADERMA PER PROTOCOL PRN PRN Reason: IV Start Naloxone HCl (Naloxone 0.4 Mg/Ml 1 Ml Vial) 0.2 mg IV Q2M PRN PRN Reason: Opioid Reversal Ondansetron HCl (Ondansetron 4 Mg/2 Ml Vial) 4 mg IVP Q8HR PRN PRN Reason: Nausea And Vomiting Last Admin: 08/30/21 20:59 Dose: 4 mg Documented by: Pantoprazole Sodium (Pantoprazole 40 Mg Tablet) 40 mg PO AC-BRKFST [facility] Last Admin: 09/03/21 06:28 Dose: 40 mg Documented by: Polyethylene Glycol (Polyethylene Glycol 3350 17 Gm Powd.Pack) 17 gm PO DAILY [facility] Last Admin: 09/02/21 08:59 Dose: 17 gm Documented by: Tamsulosin HCl (Tamsulosin 0.4 Mg Cap.Er.24h) 0.4 mg PO DAILY [facility] Last Admin: 09/02/21 08:58 Dose: 0.4 mg Documented by: PHYSICAL EXAMINATION: Patient is lying in the bed, awake alert and oriented.. HEENT: Normocephalic. Neck is supple. Pupils reactive. Nostrils clear. Oral cavity is moist. Neck: reveals no JVD, carotid bruits, or thyromegaly. CHEST EXAMINATION: Trachea is central. Symmetrical expansion. Bibasilar diminished sounds, with no wheezing noted. Some scattered rhonchi noted CARDIAC: S1, S2 are muffled ABDOMEN: Soft. non-distended, non-tender on palpation. Bowel sounds normal. No organomegaly. No abdominal bruits. Extremities: reveal no edema. No clubbing or cyanosis Neurologically awake, alert, oriented x3 with well-coordinated movements. No focal deficits noted, diffusely weak Skin: No rash or skin lesions. Psychiatric: Cooperative. Non-suicidal Musculoskeletal: No joint swelling or deformity. Normal range of motion. Assessment: Symptomatic anemia, No evidence of acute GI bleed Iron deficiency anemia Possible acute urinary tract infection, possibly secondary to chronic indwelling elias catheter Acute kidney injury likely prerenal. possible ATN, improved Elevated troponin. likely demand ischemia. Hypovolemic hyponatremia Constipation Non-healing left ankle ulcer stage 2. No active bleeding noted. Recent left ankle ORIF for left ankle trimalleolar fracture dislocation on 06/14/2021 Status post left femoropopliteal in situ vein graft, left, femoral artery thromboendarterectomy with patch angioplasty on 07/29/2021. Hypertension Hyperlipidemia Diabetes type 2 [id number] History of [place] Previous history of smoking Plan: Recommend to continue with current medications and management. Patient being followed by ID. Repeat Ua and culture done and culture growing gram negative bacilli and will continue Ceftriaxone while awaiting for culture to finalize. Patient denies pain or frequency with urination, but patient continues with indwelling elias catheter. Patient was having some zak in the initial urine sample and maintained on Diflucan. Patient is afebrile. Patient also reports to having bowel movements. No bleeding noted. Recommend await cultures. Encourage oral intake and also continue with PT/OT therapy. Case management and social work following with plans for possible ECF once stabilized and discharged. Patient to continue with indwelling Elias catheter for now for close monitoring of intake and output. Orthopedics consulted for evaluation of the left ankle and nursing reports some pre-existing cristian still present. Continue with local wound care to the left lower extremity and appropriate home medications have been resumed. Due to multiple complex medical issues, prognosis is guarded. Possible discharge in 24 hours. The impression and plan of care has been dictated by Nell Mendez, Nurse Practitioner as directed. Dr. Prashant MD I have performed a history and examination and MDM of this patient, discussed the same with the dictator, and agree with the dictator's assessment and plan as written ,documented as a scribe. Based on total visit time, I have performed more than 50% of the visit. Objective - Vital Signs Vital signs: Vital Signs Temp 98.7 F 09/03/21 08:00 Pulse 76 09/03/21 08:00 Resp 18 09/03/21 08:00 BP 158/69 09/03/21 08:00 Pulse Ox 97 09/03/21 08:00 Intake & Output 09/02/21 09/03/21 09/03/21 18:59 06:59 18:59 Intake Total 360 400 240 Output Total 550 1300 Balance -190 -900 240 Intake: Oral 360 400 240 Output: Urine 550 1300 Other: Voiding Method Indwelling Catheter Indwelling Catheter - Labs CBC & Chem 7: 09/03/21 08:40 09/03/21 08:40 Labs: Abnormal Lab Results - Last 24 Hours (Table) 09/02/21 09/02/21 Range/Units 16:46 21:22 POC Glucose (mg/dL) 101 H 108 H (75-99) mg/dL Microbiology - Last 24 Hours (Table) 09/01/21 13:49 Urine Culture - Preliminary Urine,Voided Gram Neg Bacilli
[2021-09-03 16:24] LABS: Glucose,Whole Blood 132 mg/dL (75-99)
[2021-09-03] MEDS: HYDROcodone/APAP 5-325MG 1 EACH TAB PO PRN (17:41)
[2021-09-03 20:51] LABS: Glucose,Whole Blood 111 mg/dL (75-99)
[2021-09-03] MEDS: COLLAGENASE 250 UNIT/GM OINTMENT 30 GM TUBE TOPICAL SCH (21:28)
[2021-09-03] MEDS: ATORVASTATIN 20 MG TAB PO SCH (21:28)
[2021-09-04 07:18] VITALS: RESP 16
[2021-09-04 07:48] LABS: Glucose,Whole Blood 99 mg/dL (75-99)
[2021-09-04] MEDS: INSULIN ASPART (NovoLOG) 100 UNIT/ML VIAL SQ SCH ×2 (07:55→13:11)
[2021-09-04] MEDS: TAMSULOSIN 0.4 MG CAP.ER.24H PO SCH (08:43)
[2021-09-04] MEDS: PANTOPRAZOLE 40 MG TABLET PO SCH (08:44)
[2021-09-04] MEDS: CLOPIDOGREL 75 MG TAB PO SCH (08:44)
[2021-09-04] MEDS: FLUCONAZOLE 100 MG TAB PO SCH (08:44)
[2021-09-04] MEDS: LACTULOSE 20 GM/30 ML CUP PO SCH (08:50)
[2021-09-04] MEDS: polyethylene glycoL 3350 17 GM POWD.PACK PO SCH (09:37)
[2021-09-04 11:20] LABS: Glucose,Whole Blood 134 mg/dL (75-99)
[2021-09-04 11:22] LABS: Appearance,Urine Cloudy (Clear); Bacteria,Urine Rare /hpf; Bilirubin,Urine Negative (Negative); Blood,Urine Negative (Negative); Color,Urine Light Yellow; Glucose,Urine (UA) Negative (Negative); Hyaline Casts,Urine 1 /lpf (0-2); Ketones,Urine Negative (Negative); Leukocyte Esterase,Urine Large (Negative); Nitrite,Urine Negative (Negative); PH, Urine 6.5 (5.0-8.0); Protein,Urine Trace (Negative); RBC,Urine 50 /hpf (0-5); Specific Gravity,Urine 1.011 (1.001-1.035); Squamous Epithelial Cell,Urine <1 /hpf (0-4); Urobilinogen,Urine <2.0 mg/dL (<2.0); WBC,Urine >182 /hpf (0-5)
--- NOTE | 2021-09-04 12:07 | P.DS ---
Providers Date of admission: 08/22/21 01:09 Expected date of discharge: 09/04/21 Attending physician: Scout Cerda Consults: 08/22/21 01:10 Consult Physician Routine Consulting Provider: Nicholas Proctor Consult Reason/Comments: known Do you want consulting provider notified?: Yes 08/22/21 12:38 Consult Physician Routine Consulting Provider: Jose Guadalupe Dhillon Consult Reason/Comments: anemia Do you want consulting provider notified?: Yes 08/22/21 12:50 Consult Physician Routine Consulting Provider: Freddie Silva Consult Reason/Comments: known to patient, on vancomycin infusions at [facility] Do you want consulting provider notified?: Yes Primary care physician: Stated None Hospital Course: Final diagnosis Symptomatic anemia, No evidence of acute GI bleed Iron deficiency anemia acute urinary tract infection, possibly secondary to chronic indwelling elias catheter, with ESBL Acute kidney injury likely prerenal. possible ATN, improved Elevated troponin. likely demand ischemia. Hypovolemic hyponatremia Constipation Non-healing left ankle ulcer stage 2. No active bleeding noted. Recent left ankle ORIF for left ankle trimalleolar fracture dislocation on 12/2021 Status post left femoropopliteal in situ vein graft, left, femoral artery thromboendarterectomy with patch angioplasty on 07/29/2021. Hypertension Hyperlipidemia Diabetes type 2 [id number] History of [place] Previous history of smoking Full code Discharge disposition Patient is being discharged in a stable condition with guarded prognosis to [facility] for continued PT/OT therapy. Patient will follow-up with Dr. Sapp in the outpatient setting upon discharge. Patient is to continue with IV antibiotics in the form of Invanz 1 g daily for 1 week per infectious disease re commendations on discharge. Patient will need orthopedic and vascular surgery along with infectious disease follow-up in the outpatient setting. Total time taken is greater than 35 minutes. Hospital course This is a 70-year-old female who was recently admitted with low hemoglobin from ECF and was being closely monitored. Attempted colonoscopy although unable to tolerate the bowel prep and patient was evaluated and seen by general surgery recommending outpatient follow-up with colonoscopy in the outpatient setting. Hemoglobin has been stable and no further bleeding noted. Patient is tolerating diet and having bowel movements. Patient continues with local wound care to bilateral lower extremities along with the buttock area and needs frequent position changes at least every 2 hours. Patient will need to follow-up with infectious disease at the wound center along with vascular surgery in the outpatient setting. Patient with chronic indwelling Elias catheter and recommend continue and repeat urinalysis showing ESBL and will continue with IV Invanz for 1 week per infectious disease recommendations and will need follow-up with Dr. Silva in the outpatient setting. Patient reports to feeling much better and is adamant about leaving today. Patient will be discharged to [facility]. Currently no reports of chest pain, shortness of breath, or palpitations. Patient is afebrile. No reports of nausea or vomiting and patient is tolerating diet. Patient will be going to [facility] today. Guarded prognosis. On exam vital signs are stable. Cardio S1, S2 are muffled. Respiratory system shows diminished breath sounds at the bases with no wheezing or rhonchi noted. Abdomen is soft and obese, and nontender. Nervous system shows diffuse weakness. Please refer to medication reconciliation sheet for a list of medications. The impression and plan of care has been dictated by Nell Mendez, Nurse Practitioner as directed. Dr. Prashant MD I have performed a history and examination and MDM of this patient, discussed the same with the dictator, and agree with the dictator's assessment and plan as written ,documented as a scribe. Based on total visit time, I have performed more than 50% of the visit. Patient Condition at Discharge: Fair Plan - Discharge Summary Discharge Rx Participant: No New Discharge Prescriptions: New bisacodyL [Dulcolax] 10 mg RECTAL DAILY PRN supp PRN Reason: Constipation INSULIN ASPART (NovoLOG) [NovoLOG (formulary)] 0 unit SQ ACHS ml Collagenase [Santyl Ointment] 1 applic TOPICAL HS Lactulose [Cephulac] 30 gm PO BID ml HYDROcodone/APAP 5-325MG [[place]ore 5-325] 1 each PO Q6HR PRN #6 tab PRN Reason: Pain polyethylene glycoL 3350 [Miralax] 17 gm PO DAILY packet Pantoprazole [Protonix] 40 mg PO AC-BRKFST tab Continue Ergocalciferol [Vitamin D2 (1250 Mcg = 79274 Iu)] 1,250 mcg PO TU Acetaminophen [Tylenol] 650 mg PO Q6H PRN PRN Reason: Pain amLODIPine BESYLATE 10 mg PO HS Promethazine HCl 12.5 mg PO Q8H PRN PRN Reason: Nausea Multivitamins, Thera [Multivitamin (formulary)] 1 tab PO DAILY Melatonin 5 mg PO HS@1999 Docusate [Colace] 100 mg PO DAILY PRN PRN Reason: Constipation Clopidogrel [Plavix] 75 mg PO HS@1999 Magnesium Oxide [Magox 400] 400 mg PO HS Linagliptin [Tradjenta] 5 mg PO DAILY Tamsulosin [Flomax] 0.4 mg PO DAILY Atorvastatin [Lipitor] 20 mg PO HS@1999 Discontinued metFORMIN HCL [Glucophage] 500 mg PO BID Aspirin 81 mg PO DAILY cefTRIAXone SODIUM 2 gm IV Q24H HYDROcodone/APAP 5-325MG [[place]oore 5-325] 1 tab PO Q6HR PRN #9 tab PRN Reason: Pain Ferrous Sulfate [Feosol] 325 mg PO HS@1999 Vancomycin HCl in 5 % Dextrose [Vancomycin 1 Gram/250 ml-D5w] 1 gm IV Q16H #30 each Discharge Medication List Ergocalciferol [Vitamin D2 (1250 Mcg = 19617 Iu)] 1,250 mcg PO TU 07/16/21 [History] Magnesium Oxide [Magox 400] 400 mg PO HS 07/16/21 [History] Acetaminophen [Tylenol] 650 mg PO Q6H PRN 07/26/21 [History] Linagliptin [Tradjenta] 5 mg PO DAILY 07/26/21 [History] Tamsulosin [Flomax] 0.4 mg PO DAILY 07/26/21 [History] amLODIPine BESYLATE 10 mg PO HS 07/26/21 [History] Atorvastatin [Lipitor] 20 mg PO HS@199908/15/21 [History] Clopidogrel [Plavix] 75 mg PO HS@199908/15/21 [History] Docusate [Colace] 100 mg PO DAILY PRN 08/15/21 [History] Melatonin 5 mg PO HS@199908/15/21 [History] Multivitamins, Thera [Multivitamin (formulary)] 1 tab PO DAILY 08/15/21 [History] Promethazine HCl 12.5 mg PO Q8H PRN 08/15/21 [History] Collagenase [Santyl Ointment] 1 applic TOPICAL HS 08/29/21 [Rx] INSULIN ASPART (NovoLOG) [NovoLOG (formulary)] 0 unit SQ ACHS ml 08/29/21 [Rx] Pantoprazole [Protonix] 40 mg PO AC-BRKFST tab 08/29/21 [Rx] bisacodyL [Dulcolax] 10 mg RECTAL DAILY PRN supp 08/29/21 [Rx] polyethylene glycoL 3350 [Miralax] 17 gm PO DAILY packet 08/29/21 [Rx] HYDROcodone/APAP 5-325MG [[place] 5-325] 1 each PO Q6HR PRN #6 tab 09/04/21 [Rx] Lactulose [Cephulac] 30 gm PO BID ml 09/04/21 [Rx] Follow up Appointment(s)/Referral(s): Orion Sapp MD [STAFF PHYSICIAN] - 1-2 Days () Juancho Vilchis DO [Doctor of Osteopathic Medicine] - 2 Weeks [facility] [NON-STAFF] - 1 Week Freddie Silva MD [STAFF PHYSICIAN] - 1 Week Nicholas Proctor MD [Medical Doctor] - 1 Week Brook Perales MD [STAFF PHYSICIAN] - 09/24/21 8:30 am (This appt is at the [place] location. [facility] [address] [place] [id number], [facility] [phone]) Jose Pulido MD [STAFF PHYSICIAN] - 1 Week Ambulatory/Diagnostic Orders: Basic Metabolic Panel [LAB.AMB] Time Frame: 2 Days, Location: None Selected Miscellaneous Lab Order [LAB.AMB] Location: None Selected Activity/Diet/Wound Care/Special Instructions: [facility] [employer] Activity as tolerated Continue current diet Follow-up with orthopedics outpatient Continue local wound care Patient will need to schedule for outpatient colonoscopy with Dr Pulido PLEASE NOTE FOLLOW UP WITH HOUSING OFFICER, LOCATION Weekly CBC while in rehab. Patient to continue with indwelling Elias catheter at this time Discharge Disposition: TRANSFER TO SNF/ECF
[2021-09-04] MEDS ORDERED: ERTAPENEM 1 GM in SODIUM CHLORIDE 0.9% 50 ML IVPB SCH (12:30)
--- NOTE | 2021-09-04 12:56 | P.PN ---
Subjective Progress Note Date: 09/03/21 Principal diagnosis: Left groin and lower extremity wounds Patient is a 77-year-old female with a past medical history significant for left ankle fracture status post a subsequently wound dehiscence requiring debridement culture were negative for the patient did have a left lower extremity revascularization no admitted to the hospital with anemia and some drainage from the wounds. Patient did have anemia and is status post EGD the 20 10/25/2021 with evidence of antral gastritis On today's evaluation that is 09/03/2021, The patient remains to be afebrile, breathing comfortably on room air denies any chest pain shortness of breath or cough no abdominal pain no diarrhea pain to the lower extremities currently controlled the patient Colby catheter has been changed noticed to have more slough tissue to the left groin wound area Objective - Vital Signs Vital signs: Vital Signs Temp 98.7 F 09/03/21 08:00 Pulse 76 09/03/21 08:00 Resp 18 09/03/21 08:00 BP 158/69 09/03/21 08:00 Pulse Ox 97 09/03/21 08:00 Intake & Output 09/02/21 09/03/21 09/03/21 18:59 06:59 18:59 Intake Total 360 400 240 Output Total 550 1300 Balance -190 -900 240 Intake: Oral 360 400 240 Output: Urine 550 1300 Other: Voiding Method Indwelling Catheter Indwelling Catheter - Exam GENERAL DESCRIPTION: An elderly female lying in bed in no distress RESPIRATORY SYSTEM: Unlabored breathing , decreased breath sounds at bases HEART: S1 S2 regular rate and rhythm , ABDOMEN: Soft , no tenderness EXTREMITIES: Left groin wound he did have slough tissue but no surrounding redness left lower extremity wound is drying out heel wounds are drying out as well with no redness or any drainage - Labs CBC & Chem 7: 09/03/21 08:40 09/03/21 08:40 Labs: Abnormal Lab Results - Last 24 Hours (Table) 09/02/21 09/02/21 09/03/21 Range/Units 16:46 21:22 08:40 RBC 3.10 L (3.80-5.40) m/uL Hgb 8.6 L (11.4-16.0) gm/dL Hct 27.8 L (34.0-46.0) % MCHC 30.8 L (31.0-37.0) g/dL Sodium (137-145) mmol/L BUN (7-17) mg/dL Creatinine (0.52-1.04) mg/dL Glucose (74-99) mg/dL POC Glucose (mg/dL) 101 H 108 H (75-99) mg/dL Calcium (8.4-10.2) mg/dL C-Reactive Protein (<1.0) mg/dL 09/03/21 Range/Units 08:40 RBC (3.80-5.40) m/uL Hgb (11.4-16.0) gm/dL Hct (34.0-46.0) % MCHC (31.0-37.0) g/dL Sodium 136 L (137-145) mmol/L BUN 21 H (7-17) mg/dL Creatinine 1.52 H (0.52-1.04) mg/dL Glucose 112 H (74-99) mg/dL POC Glucose (mg/dL) (75-99) mg/dL Calcium 7.8 L (8.4-10.2) mg/dL C-Reactive Protein 2.0 H (<1.0) mg/dL Microbiology - Last 24 Hours (Table) 09/01/21 13:49 Urine Culture - Preliminary Urine,Voided Gram Neg Bacilli Assessment and Plan (1) Non-pressure chronic ulcer of other part of left foot with fat layer exposed Current Visit: No Status: Acute Code(s): L97.522 - NON-PRS CHRONIC ULCER OTH PRT LEFT FOOT W FAT LAYER EXPOSED SNOMED Code(s): 392690915 (2) Non-pressure ulcer of left lower extremity with fat layer exposed Current Visit: No Status: Acute Code(s): L97.922 - NON-PRS CHR ULC UNSP PRT OF L LOW LEG W FAT LAYER EXPOSED SNOMED Code(s): 84569740 (3) Postoperative wound dehiscence Current Visit: No Status: Acute Code(s): T81.31XA - DISRUPTION OF EXTERNAL OPERATION (SURGICAL) WOUND, NEC, INIT SNOMED Code(s): 424638656 Plan: 1patient with a nonhealing wound to the left groin with slough tissue but no evidence of cellulitis, Patient been on Santyl for almost a week still have significant amount of slough tissue to the left groin area RN has been instructed to contact vascular surgery for possible surgical debridement of left groin wound 2patient with left thigh and leg wound with no slough tissue or surrounding redness , patient currently being treated with dry Aquacel silver dressing. 3patient with stage II pressure ulcer of the left heel area with no surrounding cellulitis, patient currently being treated with the dry Aquacel silver dressing daily of the pressure. 4patient with a stage I pressure ulcer to the right heel area with no open wound or any cellulitis to continue local care by keeping the area dry and off the pressure 5positive UA with a question of possible Colby colonization versus catheter associated UTI, Colby catheter Has been changed repeat UA is pending continue with the Diflucan Time with Patient: Less than 30
--- NOTE | 2021-09-04 12:59 | P.PN ---
Subjective Progress Note Date: 09/04/21 Principal diagnosis: Left groin and lower extremity wounds Patient is a 77-year-old female with a past medical history significant for left ankle fracture status post a subsequently wound dehiscence requiring debridement culture were negative for the patient did have a left lower extremity revascularization no admitted to the hospital with anemia and some drainage from the wounds. Patient did have anemia and is status post EGD the 20 10/25/2021 with evidence of antral gastritis On today's evaluation that is 09/04/2021, The patient is afebrile, breathing comfortably on room air denies any chest pain shortness of breath or cough no abdominal pain no diarrhea pain to the lower extremities currently controlled the patient Colby catheter has been changed And the patient denies suprapubic or flank pain had no nausea no vomiting Objective - Vital Signs Vital signs: Vital Signs Temp 97.8 F 09/04/21 07:16 Pulse 78 09/04/21 07:16 Resp 16 09/04/21 07:16 BP 153/68 09/04/21 07:16 Pulse Ox 96 09/04/21 07:16 Intake & Output 09/03/21 09/04/21 09/04/21 18:59 06:59 18:59 Intake Total 430 Output Total 400 500 Balance 30 -500 Weight 75.5 kg Intake: IV 10 Invasive Line 1 10 Oral 420 Output: Urine 400 500 Uretheral (Colby) 500 Other: Voiding Method Indwelling Catheter Indwelling Catheter Indwelling Catheter # Voids 1 - Exam GENERAL DESCRIPTION: An elderly female lying in bed in no distress RESPIRATORY SYSTEM: Unlabored breathing , decreased breath sounds at bases HEART: S1 S2 regular rate and rhythm , ABDOMEN: Soft , no tenderness EXTREMITIES: Left groin wound are currently dressed no drainage on the dressing - Labs CBC & Chem 7: 09/03/21 08:40 09/03/21 08:40 Labs: Abnormal Lab Results - Last 24 Hours (Table) 09/03/21 09/03/21 09/04/21 Range/Units 16:23 20:41 10:30 POC Glucose (mg/dL) 132 H 111 H (75-99) mg/dL Urine Appearance Cloudy H (Clear) Urine Protein Trace H (Negative) Ur Leukocyte Esterase Large H (Negative) Urine RBC 50 H (0-5) /hpf Urine WBC >182 H (0-5) /hpf Urine WBC Clumps Few H (None) /hpf Urine Bacteria Rare H (None) /hpf 09/04/21 Range/Units 11:17 POC Glucose (mg/dL) 134 H (75-99) mg/dL Urine Appearance (Clear) Urine Protein (Negative) Ur Leukocyte Esterase (Negative) Urine RBC (0-5) /hpf Urine WBC (0-5) /hpf Urine WBC Clumps (None) /hpf Urine Bacteria (None) /hpf Microbiology - Last 24 Hours (Table) 09/01/21 13:49 Urine Culture - Final Urine,Voided Klebsiella pneumoniae Assessment and Plan (1) Non-pressure chronic ulcer of other part of left foot with fat layer exposed Current Visit: No Status: Acute Code(s): L97.522 - NON-PRS CHRONIC ULCER OTH PRT LEFT FOOT W FAT LAYER EXPOSED SNOMED Code(s): 569211873 (2) Non-pressure ulcer of left lower extremity with fat layer exposed Current Visit: No Status: Acute Code(s): L97.922 - NON-PRS CHR ULC UNSP PRT OF L LOW LEG W FAT LAYER EXPOSED SNOMED Code(s): 71349561 (3) Postoperative wound dehiscence Current Visit: No Status: Acute Code(s): T81.31XA - DISRUPTION OF EXTERNAL OPERATION (SURGICAL) WOUND, NEC, INIT SNOMED Code(s): 742082901 Plan: 1patient with a nonhealing wound to the left groin with slough tissue but no evidence of cellulitis, Patient been on Santyl for almost a week still have significant amount of slough tissue to the left groin area RN Was supposed to contact vascular surgery for possible surgical debridement of left groin wound 2patient with left thigh and leg wound with no slough tissue or surrounding redness , patient currently being treated with dry Aquacel silver dressing. 3patient with stage II pressure ulcer of the left heel area with no surrounding cellulitis, patient currently being treated with the dry Aquacel silver dressing daily of the pressure. 4patient with a stage I pressure ulcer to the right heel area with no open wound or any cellulitis to continue local care by keeping the area dry and off the pressure 5positive UA In this patient who do have a chronic indwelling Colby catheter urine culture now showing ESBL Klebsiella, UA was repeated and is still significantly positive putting her at high risk of developing symptomatic UTI despite change of her Colby catheter will give a short course of IV Invanz and a close outpatient follow-up this was discussed with the nurse practitioner for admitting team working on discharge Time with Patient: Less than 30
[2021-09-04 13:29] VITALS: BP 151/62; PULSE 70; TEMP 98.4
--- NOTE | 2021-09-04 15:20 | P.PN ---
Subjective Progress Note Date: 09/04/21 Patient seen and examined for follow-up of her left groin incisional wound. She is status post a left lower extremity fem-pop in situ vein bypass with left common femoral artery thromboendarterectomy with patch angioplasty on 07/29/[address] Mckeon. Patient continues to have open wound in the left groin with drainage. Infectious disease and wound care management has been following patient. She's been afebrile. She is on ERtapenem. She denies any pain in the left lower extremity. She has multiple dressings on. She is able to move the left lower extremity without any difficulty. Objective - Vital Signs Vital signs: Vital Signs Temp 97.8 F 09/04/21 07:16 Pulse 78 09/04/21 07:16 Resp 16 09/04/21 07:16 BP 153/68 09/04/21 07:16 Pulse Ox 96 09/04/21 07:16 Intake & Output 09/03/21 09/04/21 09/04/21 18:59 06:59 18:59 Intake Total 430 Output Total 400 500 Balance 30 -500 Weight 75.5 kg Intake: IV 10 Invasive Line 1 10 Oral 420 Output: Urine 400 500 Uretheral (Colby) 500 Other: Voiding Method Indwelling Catheter Indwelling Catheter Indwelling Catheter # Voids 1 - Exam General appearance: The patient is alert, oriented, appears in no acute distress. HET: Head is normocephalic and atraumatic. Pupils are equal and reactive. Neck: Supple without lymphadenopathy. Trachea midline. Heart: S1 S2. Regular rate and rhythm. Lungs: Clear to auscultation bilaterally. Abdomen: Soft, nontender, nondistended. Extremities: Normal skin color and turgor. Left lower extremity warm to the touch. Left foot wrapped with Kerlix. Multiple dressings to the left lower extremity. Left groin with open incision with soft tissue and clear drainage. Neurological: No focal deficits. Strength and sensation are grossly intact. - Labs CBC & Chem 7: 09/03/21 08:40 09/03/21 08:40 Labs: Abnormal Lab Results - Last 24 Hours (Table) 09/03/21 09/03/21 09/04/21 Range/Units 16:23 20:41 10:30 POC Glucose (mg/dL) 132 H 111 H (75-99) mg/dL Urine Appearance Cloudy H (Clear) Urine Protein Trace H (Negative) Ur Leukocyte Esterase Large H (Negative) Urine RBC 50 H (0-5) /hpf Urine WBC >182 H (0-5) /hpf Urine WBC Clumps Few H (None) /hpf Urine Bacteria Rare H (None) /hpf 09/04/21 Range/Units 11:17 POC Glucose (mg/dL) 134 H (75-99) mg/dL Urine Appearance (Clear) Urine Protein (Negative) Ur Leukocyte Esterase (Negative) Urine RBC (0-5) /hpf Urine WBC (0-5) /hpf Urine WBC Clumps (None) /hpf Urine Bacteria (None) /hpf Microbiology - Last 24 Hours (Table) 09/01/21 13:49 Urine Culture - Final Urine,Voided Klebsiella pneumoniae Assessment and Plan Assessment: 1. Non-healing postoperative wound 2. Status post left fem-pop in situ vein bypass graft, left [employer] thromboendarterectomy with patch angioplasty 07/29/2021 3. Left femoral occlusion, tibial artery occlusive disease 4. Nonhealing wound to left ankle Plan: 1. Continue with medical management 2. Continue with IV antibiotics per recommendations from infectious disease 3. Continue with local wound care per recommendations from wound care and ID 4. Recommend outpatient wound care, the patient may require formal debridement and wound VAC placement The impression and plan of care has been dictated as directed. Dr. Colby I performed a history and examination of this patient, discussed the same with the dictator. I agree with the dictator's note ,documented as a scribe. Any additional findings or plans will be noted.
--- NOTE | 2021-09-10 09:38 | CDI ---
Documentation Clarification Form Date: 09/10/2021 08:36:50 AM From: Nicci Olivera RN, CCDS Admit Date: 08/22/2021 01:09:00 AM Patient Name: Nubia Arvizu Visit Number: [id number] Discharge Date: 09/04/2021 04:20:00 PM ATTENTION: The Clinical Documentation Specialists (CDI) and [facility] Coding Staff appreciate your assistance in clarifying documentation. Please respond to the clarification below the line at the bottom and electronically sign. The CDI & [facility] Coding staff will review the response and follow-up if needed. Please note: Queries are made part of the Legal Health Record. If you have any questions, please contact the author of this message via ITS. Dr. Scout Cerda UTI possibly related to chronic indwelling Colby catheter is documented in the progress notes starting on 09/02/2021. UA on admission 08/22/2021 showing Large leukocyte esterase, WBC >182, Urine yeast many. Additional clarification regarding this diagnosis is requested. Admit 08/22/21 voiding method: Diaper/brief 08/24/21 Colby insertion date History/Risk Factors: Diabetes mellitus, Hypertension, Vascular disorder, Former smoker Clinical Indicators: 70-year-old female present on 08/22/21 with symptomatic anemia. UA showing large leukocyte esterase and yeast. 08/22 voiding method Diaper/brief. Colby catheter insertion date 08/24/21 @ 1400. 09/02 Progress notes has possible acute urinary tract infection, possible secondary to chronic indwelling Colby catheter. 08/22 Vital Signs: 134/76 82 18 93 % RA 08/22 WBC: 9.4 08/22 Urinalysis: appearance cloudy, Ur Leukocyte Esterase Large, Urine WBC >182, Urine Yeast (Budding) 08/22 Urine Culture: Bettina albicans 09/01 Urine Culture Klebsiella pneumonia 09/04 Urine Culture clean catch: Klebsiella oxytoca Treatment Diflucan 100MG PO Daily Ceftriaxone 1 GM IVPB Q 24 HRS 09/01; 2 GM IVPB Q 24 HRS 09/03-09/04 Invanz 1 GM IVPB Daily Please further clarify if there is an additional diagnosis associated with the UTI: [ ] UTI only POA [ ] UTI secondary to Colby catheter ruled in, [ ] UTI, POA, not related to Colby catheter, [ ] Other, please specify [ ] Unable to determine (Template Last Revised: August 2020) UTI only TONY LARSON
== END 2021-09-04 16:20 | DRG 811 ==
LOC: EC 23:10 → 3SCARD 08-22 01:09 → 4SSUR 09-03 19:57
PROVIDERS: ADMIT Hospitalist; ATTEND Hospitalist
PROC: 0DB78ZX Excision of Stomach, Pylorus, Via Natural or Artificial Opening Endoscopic, Diagnostic (ICD-10-PCS; 2021-08-22)
PROC: 30233N1 Transfusion of Nonautologous Red Blood Cells into Peripheral Vein, Percutaneous Approach (ICD-10-PCS; principal; 2021-08-29 12:00)
DX: D50.9 Iron deficiency anemia, unspecified (principal); N17.0 Acute kidney failure with tubular necrosis; E87.1 Hypo-osmolality and hyponatremia; I24.8 Other forms of acute ischemic heart disease; N39.0 Urinary tract infection, site not specified; T81.31XA Disruption of external operation (surgical) wound, not elsewhere classified, initial encounter; L97.322 Non-pressure chronic ulcer of left ankle with fat layer exposed; L97.122 Non-pressure chronic ulcer of left thigh with fat layer exposed; K29.70 Gastritis, unspecified, without bleeding; E11.22 Type 2 diabetes mellitus with diabetic chronic kidney disease; E66.9 Obesity, unspecified; Z68.25 Body mass index [BMI] 25.0-25.9, adult; E11.51 Type 2 diabetes mellitus with diabetic peripheral angiopathy without gangrene; L89.152 Pressure ulcer of sacral region, stage 2; K59.00 Constipation, unspecified; L89.611 Pressure ulcer of right heel, stage 1; L89.622 Pressure ulcer of left heel, stage 2; N18.9 Chronic kidney disease, unspecified; D63.1 Anemia in chronic kidney disease; E11.621 Type 2 diabetes mellitus with foot ulcer; E78.5 Hyperlipidemia, unspecified; L98.492 Non-pressure chronic ulcer of skin of other sites with fat layer exposed; L97.522 Non-pressure chronic ulcer of other part of left foot with fat layer exposed; E86.0 Dehydration; E86.1 Hypovolemia; I12.9 Hypertensive chronic kidney disease with stage 1 through stage 4 chronic kidney disease, or unspecified chronic kidney disease; I70.209 Unspecified atherosclerosis of native arteries of extremities, unspecified extremity; Y73.2 Prosthetic and other implants, materials and accessory gastroenterology and urology devices associated with adverse incidents; I25.2 Old myocardial infarction; Z79.02 Long term (current) use of antithrombotics/antiplatelets; Z79.4 Long term (current) use of insulin; Z79.82 Long term (current) use of aspirin; Z79.899 Other long term (current) drug therapy; Z87.891 Personal history of nicotine dependence; Z98.890 Other specified postprocedural states; Z88.5 Allergy status to narcotic agent
CPT/HCPCS: 36415; 43239; 74018; 80048; 80053; 81001; 82607; 82668; 82728; 82746; 82747; 82784; 83540; 83550; 83605; 83615; 83735; 83883; 83921; 84100; 84145; 84165; 84484; 85025; 85027; 85045; 85610; 85652; 85730; 86140; 86334; 86850; 86900; 86901; 86920; 87077; 87086; 87186; 88305; 88342; 93005; 94760; 99285

== ENCOUNTER 2021-10-03 11:22 | Emergency (ER) | payer MEDICARE, OTHER ==
[2021-10-03 11:37] VITALS: TEMP 98.1
--- NOTE | 2021-10-03 13:01 | XR ---
EXAMINATION TYPE: XR KUB DATE OF EXAM: 10/03/2021 12:56 PM CLINICAL HISTORY: Constipation. TECHNIQUE: Two supine KUB images of the abdomen are obtained. COMPARISON: CT abdomen and pelvis July 18, 2021. FINDINGS: Scattered gas is seen in non-distended small bowel loops. Gas and fecal material is seen in non-distended colon. Colby catheter overlies the pubic symphysis and lower pelvis. Scattered bilater al inferior pelvic phleboliths. Lung bases remain clear. Moderate fecal prominence in the right colon and cecum. Mild to moderate fecal prominence in the lower pelvis at level of the rectum. IMPRESSION: Overall nonobstructive bowel gas pattern. Moderate proximal colonic fecal stasis. Mild to moderate di stal colonic fecal stasis.
[2021-10-03] MEDS ORDERED: MAGNESIUM CITRATE 296 ML BOTTLE PO ONE (14:37)
--- NOTE | 2021-10-03 14:40 | ED ---
General Adult HPI - General Chief complaint: Recheck/Abnormal Lab/Rx Stated complaint: constipation Time Seen by Provider: 10/03/21 11:52 Source: patient, EMS, RN notes reviewed Mode of arrival: EMS Limitations: no limitations - History of Present Illness Initial comments: 70-year-old female presents emergency department via EMS from [facility] for constipation. Patient has no complaints herself. Patient was sent here with a report stating that there was evidence constipation x-ray possible ileus patient has no abdominal pain denies any nausea vomiting. Patient states that she had no fevers or chills no complaints of dysuria hematuria. - Related Data Home Medications Medication Instructions Recorded Confirmed Ergocalciferol [Vitamin D2 (1250 1,250 mcg PO TU 07/16/21 10/03/21 Mcg = 01989 Iu)] Magnesium Oxide [Magox 400] 400 mg PO DAILY@0700 07/16/21 10/03/21 Linagliptin [Tradjenta] 5 mg PO DAILY@0707/26/21 10/03/21 Tamsulosin [Flomax] 0.4 mg PO DAILY@69907/26/21 10/03/21 amLODIPine BESYLATE 10 mg PO HS@199907/26/21 10/03/21 Atorvastatin [Lipitor] 20 mg PO HS@199908/15/21 10/03/21 Clopidogrel [Plavix] 75 mg PO HS@199908/15/21 10/03/21 Docusate [Colace] 100 mg PO DAILY PRN 08/15/21 10/03/21 Melatonin 5 mg PO HS@199908/15/21 10/03/21 Promethazine HCl 12.5 mg PO Q8H PRN 08/15/21 10/03/21 Acetaminophen [Acetaminophen ER] 650 mg PO Q6H PRN 10/03/21 10/03/21 Calcium Carbonate [Tums] 500 mg PO Q8H PRN 10/03/21 10/03/21 HYDROcodone/APAP 5-325MG [[place] 1 tab PO Q6HR PRN 10/03/21 10/03/21 5-325] Lactulose [Cephulac] 30 gm PO BID@0700,1600 10/03/21 10/03/21 Povidone-Iodine [Betadine] 1 applic TOPICAL HS 10/03/21 10/03/21 polyethylene glycoL 3350 [Miralax] 17 gm PO DAILY@0700 10/03/21 10/03/21 Previous Rx's Medication Instructions Recorded bisacodyL [Dulcolax] 10 mg RECTAL DAILY PRN supp 08/29/21 Allergies Allergy/AdvReac Type Severity Reaction Status Date / Time codeine AdvReac Itching Verified 10/03/21 11:41 Review of Systems ROS Statement: Those systems with pertinent positive or pertinent negative responses have been documented in the HPI. ROS Other: All systems not noted in ROS Statement are negative. Past Medical History Past Medical History: Diabetes Mellitus, Hyperlipidemia, Hypertension, Myocardial Infarction ([place]), Vascular Disorder Additional Past Medical History / Comment(s): DM type 2. Last Myocardial Infarction Date:: 1989 History of Any Multi-Drug Resistant Organisms: None Reported Date of last positivie culture/infection: 09/01/21 MDRO Source:: ESBL URINE Past Surgical History: No Surgical Hx Reported Additional Past Surgical History / Comment(s): "Female surgery to help with .". vascular surgery to right leg Past Anesthesia/Blood Transfusion Reactions: No Reported Reaction Past Psychological History: No Psychological Hx Reported Smoking Status: Former smoker Past Alcohol Use History: None Reported, Rare Past Drug Use History: None Reported - Past Family History Mother Family Medical History: No Reported History General Exam Limitations: no limitations General appearance: alert, in no apparent distress Head exam: Present: atraumatic, normocephalic, normal inspection Eye exam: Present: normal appearance, PERRL, EOMI. Absent: scleral icterus, co njunctival injection, periorbital swelling Respiratory exam: Present: normal lung sounds bilaterally. Absent: respiratory distress, wheezes, rales, rhonchi, stridor Cardiovascular Exam: Present: regular rate, normal rhythm, normal heart sounds. Absent: systolic murmur, diastolic murmur, rubs, gallop, clicks GI/Abdominal exam: Present: soft, normal bowel sounds. Absent: distended, tenderness, guarding, rebound, rigid Course Vital Signs 10/03/21 11:33 Temperature 98.1 F Pulse Rate 77 Respiratory 16 Rate Blood Pressure 116/61 O2 Sat by Pulse 98 Oximetry Medical Decision Making - Medical Decision Making Patient has no evidence of infection she does have moderate constipation. Patient has no abdominal tenderness vitals are stable. Patient given enema discharged with laxatives return parameters were discussed. Disposition Clinical Impression: Constipation Disposition: HOME SELF-CARE Condition: Stable Instructions (If sedation given, give patient instructions): Constipation (ED) Additional Instructions: Please return to the Emergency Department if symptoms worsen or any other concerns. Is patient prescribed a controlled substance at d/c from ED?: No Referrals: None,Stated [Primary Care Provider] - 1-2 days Time of Disposition: 14:39
[2021-10-03 14:51] VITALS: BP 126/78; PULSE 80; RESP 18
== END 2021-10-03 16:28 | disposition home or self-care (01) ==
LOC: EC 11:22
DX: K59.00 Constipation, unspecified (principal); E11.9 Type 2 diabetes mellitus without complications; I10 Essential (primary) hypertension; E78.5 Hyperlipidemia, unspecified; I25.2 Old myocardial infarction; Z87.891 Personal history of nicotine dependence; Z79.02 Long term (current) use of antithrombotics/antiplatelets; Z79.84 Long term (current) use of oral hypoglycemic drugs; Z79.899 Other long term (current) drug therapy
CPT/HCPCS: 74018; 99283

== ENCOUNTER 2021-10-29 16:40 | Inpatient (IN) | payer MEDICARE, OTHER ==
--- NOTE | 2021-10-29 17:14 | ED ---
General Adult HPI - General Chief complaint: Skin/Abscess/Foreign Body Stated complaint: infection Time Seen by Provider: 10/29/21 16:45 Source: patient, EMS, RN notes reviewed, old records reviewed Mode of arrival: EMS Limitations: no limitations - History of Present Illness Initial comments: Patient is a pleasant 71-year-old female presenting to the emergency Department with wound infection. Patient did have surgery over a year ago left ankle. Pat leela was in the hospital several months ago with concern for infection. Patient does see fitness specialist through the nursing facility who did recommend she come to the hospital today with concern for infection. Patient states she has no new complaints. Patient is a poor historian. - Related Data Home Medications Medication Instructions Recorded Confirmed Ergocalciferol [Vitamin D2 (1250 1,250 mcg PO TU@69907/16/21 10/29/21 Mcg = 88713 Iu)] Magnesium Oxide [Magox 400] 400 mg PO DAILY@69907/16/21 10/29/21 Linagliptin [Tradjenta] 5 mg PO DAILY@69907/26/21 10/29/21 Tamsulosin [Flomax] 0.4 mg PO DAILY@69907/26/21 10/29/21 amLODIPine BESYLATE 10 mg PO HS@199907/26/21 10/29/21 Atorvastatin [Lipitor] 20 mg PO HS@199908/15/21 10/29/21 Clopidogrel [Plavix] 75 mg PO HS@199908/15/21 10/29/21 Docusate [Colace] 100 mg PO DAILY PRN 08/15/21 10/29/21 Melatonin 5 mg PO HS@199908/15/21 10/29/21 Promethazine HCl 12.5 mg PO Q8H PRN 08/15/21 10/29/21 Acetaminophen [Acetaminophen ER] 650 mg PO Q6H PRN 10/03/21 10/29/21 HYDROcodone/APAP 5-325MG [[place] 1 tab PO Q6HR PRN 10/03/21 10/29/21 5-325] Lactulose [Cephulac] 30 gm PO BID@0700,1600 10/03/21 10/29/21 Povidone-Iodine [Betadine] 1 applic TOPICAL HS@199910/03/21 10/29/21 polyethylene glycoL 3350 [Miralax] 17 gm PO DAILY@0700 10/03/21 10/29/21 Multivitamins, Thera [Multivitamin 1 tab PO DAILY@0700 10/29/21 10/29/21 (formulary)] Previous Rx's Medication Instructions Recorded bisacodyL [Dulcolax] 10 mg RECTAL DAILY PRN supp 08/29/21 Allergies Allergy/AdvReac Type Severity Reaction Status Date / Time codeine AdvReac Itching Verified 10/29/21 18:46 Review of Systems ROS Statement: Those systems with pertinent positive or pertinent negative responses have been documented in the HPI. ROS Other: All systems not noted in ROS Statement are negative. Constitutional: Denies: fever Eyes: Denies: eye pain ENT: Denies: ear pain Respiratory: Denies: cough Cardiovascular: Denies: chest pain Endocrine: Denies: fatigue Gastrointestinal: Denies: abdominal pain Genitourinary: Denies: dysuria Musculoskeletal: Denies: back pain Skin: Reports: as per HPI Neurological: Denies: weakness Past Medical History Past Medical History: Diabetes Mellitus, Hyperlipidemia, Hypertension, Myocardial Infarction ([place]), Vascular Disorder Additional Past Medical History / Comment(s): DM type 2, pressure ulcers to the left foot, generalized weakness, non ambulatory, anemia Last Myocardial Infarction Date:: 1989 History of Any Multi-Drug Resistant Organisms: None Reported Date of last positivie culture/infection: 09/01/21 MDRO Source:: ESBL URINE Past Surgical History: No Surgical Hx Reported, Orthopedic Surgery Additional Past Surgical History / Comment(s): "Female surgery to help with .". vascular surgery to right leg, left ankle fracture w/displacement, Past Anesthesia/Blood Transfusion Reactions: No Reported Reaction Past Psychological History: No Psychological Hx Reported Smoking Status: Former smoker Past Alcohol Use History: None Reported, Rare Past Drug Use History: None Reported - Past Family History Mother Family Medical History: No Reported History General Exam Limitations: no limitations General appearance: alert, in no apparent distress Head exam: Present: normocephalic Eye exam: Present: normal appearance Neck exam: Present: normal inspection Respiratory exam: Present: normal lung sounds bilaterally Cardiovascular Exam: Present: regular rate, normal rhythm Expanded Peripheral pulses: 2+: Posterior Tibialis (L), Dorsalis Pedis (L) GI/Abdominal exam: Present: soft. Absent: tenderness Extremities exam: Present: normal capillary refill, other (Left lateral lower ankle and dorsal midfoot with wounds) Neurological exam: Present: alert Psychiatric exam: Present: normal affect, normal mood Skin exam: Present: other (Left lateral ankle lower incision with approximately 1-2 cm area of dehiscence with stage II wound and mild discharge. Dorsal midfoot with approximately 2 x 3 cm stage III ulcer.) Course Vital Signs 10/29/21 16:45 Temperature 97.1 F L Pulse Rate 77 Respiratory 16 Rate Blood Pressure 105/67 O2 Sat by Pulse 98 Oximetry EKG Findings - EKG Comments: EKG Findings:: Sinus rhythm 3-70. NV 140. QRS 90. QT 387. QTC 47. Normal axis. Normal QRS. No acute ST change. Medical Decision Making - Medical Decision Making Patient reevaluated and updated. Case discussed with Dr. castellon, who will admit For hospital call. Infectious disease will be placed on consult - Lab Data Result diagrams: 10/29/21 18:10 10/29/21 18:10 Lab Results 10/29/21 10/29/21 10/29/21 Range/Units 18:10 18:10 18:10 WBC 15.6 H (3.8-10.6) k/uL RBC 4.01 (3.80-5.40) m/uL Hgb 9.7 L (11.4-16.0) gm/dL Hct 31.2 L (34.0-46.0) % MCV 77.8 L D (80.0-100.0) fL MCH 24.2 L (25.0-35.0) pg MCHC 31.2 (31.0-37.0) g/dL RDW 14.6 (11.5-15.5) % Plt Count 671 H (150-450) k/uL MPV 6.5 Neutrophils % 76 % Lymphocytes % 18 % Monocytes % 4 % Eosinophils % 1 % Basophils % 0 % Neutrophils # 11.8 H (1.3-7.7) k/uL Lymphocytes # 2.8 (1.0-4.8) k/uL Monocytes # 0.6 (0-1.0) k/uL Eosinophils # 0.1 (0-0.7) k/uL Basophils # 0.1 (0-0.2) k/uL Hypochromasia Slight PT 10.6 (9.0-12.0) sec INR 1.0 (<1.2) APTT 25.0 (22.0-30.0) sec Sodium 136 L (137-145) mmol/L Potassium 4.5 (3.5-5.1) mmol/L Chloride 99 (98-107) mmol/L Carbon Dioxide 28 (22-30) mmol/L Anion Gap 9 mmol/L BUN 42 H (7-17) mg/dL Creatinine 1.33 H (0.52-1.04) mg/dL Est GFR (CKD-EPI)AfAm 46 (>60 ml/min/1.73 sqM) Est GFR (CKD-EPI)NonAf 40 (>60 ml/min/1.73 sqM) Glucose 129 H (74-99) mg/dL Plasma Lactic Acid Romeo (0.7-2.0) mmol/L Calcium 10.5 H (8.4-10.2) mg/dL Total Bilirubin 0.3 (0.2-1.3) mg/dL AST 21 (14-36) U/L ALT 15 (4-34) U/L Alkaline Phosphatase 150 H (38-126) U/L Total Protein 8.0 (6.3-8.2) g/dL Albumin 3.8 (3.5-5.0) g/dL 10/29/21 Range/Units 18:10 WBC (3.8-10.6) k/uL RBC (3.80-5.40) m/uL Hgb (11.4-16.0) gm/dL Hct (34.0-46.0) % MCV (80.0-100.0) fL MCH (25.0-35.0) pg MCHC (31.0-37.0) g/dL RDW (11.5-15.5) % Plt Count (150-450) k/uL MPV Neutrophils % % Lymphocytes % % Monocytes % % Eosinophils % % Basophils % % Neutrophils # (1.3-7.7) k/uL Lymphocytes # (1.0-4.8) k/uL Monocytes # (0-1.0) k/uL Eosinophils # (0-0.7) k/uL Basophils # (0-0.2) k/uL Hypochromasia PT (9.0-12.0) sec INR (<1.2) APTT (22.0-30.0) sec Sodium (137-145) mmol/L Potassium (3.5-5.1) mmol/L Chloride (98-107) mmol/L Carbon Dioxide (22-30) mmol/L Anion Gap mmol/L BUN (7-17) mg/dL Creatinine (0.52-1.04) mg/dL Est GFR (CKD-EPI)AfAm (>60 ml/min/1.73 sqM) Est GFR (CKD-EPI)NonAf (>60 ml/min/1.73 sqM) Glucose (74-99) mg/dL Plasma Lactic Acid Romeo 1.3 (0.7-2.0) mmol/L Calcium (8.4-10.2) mg/dL Total Bilirubin (0.2-1.3) mg/dL AST (14-36) U/L ALT (4-34) U/L Alkaline Phosphatase (38-126) U/L Total Protein (6.3-8.2) g/dL Albumin (3.5-5.0) g/dL - Radiology Data Radiology results: image reviewed ((Ankle x-ray showed no obvious cellulitis. Postoperative changes) Disposition Clinical Impression: Non-pressure chronic ulcer of left ankle with fat layer exposed, Postoperative wound dehiscence, Non-pressure chronic ulcer of other part of left foot with fat layer exposed Disposition: ADMITTED IP TO THIS HOSP Is patient prescribed a controlled substance at d/c from ED?: No Referrals: None,Stated [Primary Care Provider] - 1-2 days Time of Disposition: 19:29
--- NOTE | 2021-10-29 18:17 | XR ---
EXAMINATION TYPE: XR ankle complete LT DATE OF EXAM: 10/29/2021 COMPARISON: 06/03/2021 HISTORY: Infection TECHNIQUE: 3 view FINDINGS: There is plate with screws fixating the distal fibula. There is plate with screws fixing me distal tibia. Ankle mortise appears anatomic. There is plantar and Achilles calcaneal spurring. I se e no focal bone destruction. The talus is intact. IMPRESSION: Internal fixation. No focal bone destruction. No sign of osteomyelitis. Calcaneal spurrin g.
--- NOTE | 2021-10-29 18:18 | XR ---
EXAMINATION TYPE: XR foot complete LT DATE OF EXAM: 10/29/2021 COMPARISON: NONE HISTORY: Infection TECHNIQUE: 3 views FINDINGS: There is mild vascular calcification. Metatarsals are intact. Toes appear intact. I see no fracture. No evidence of focal bone destruction. There is calcaneal spurring. IMPRESSION: Atherosclerotic disease. No fracture. No evidence of osteomyelitis.
[2021-10-29 18:47] LABS: Basophils # (A) 0.1 k/uL (0-0.2); Basophils % (A) 0 %; Eosinophils # (A) 0.1 k/uL (0-0.7); Eosinophils % (A) 1 %; HCT 31.2 % (34.0-46.0); HGB 9.7 gm/dL (11.4-16.0); Hypochromasia Slight; Lymphocytes # (A) 2.8 k/uL (1.0-4.8); Lymphocytes % (A) 18 %; MCH 24.2 pg (25.0-35.0); MCHC 31.2 g/dL (31.0-37.0); Mean Platelet Volume 6.5; Monocytes # (A) 0.6 k/uL (0-1.0); Monocytes % (A) 4 %; Neutrophils # (A) 11.8 k/uL (1.3-7.7); Neutrophils % (A) 76 %; Platelet Count 671 k/uL (150-450); RBC 4.01 m/uL (3.80-5.40); RDW 14.6 % (11.5-15.5); WBC 15.6 k/uL (3.8-10.6)
[2021-10-29 18:49] LABS: MCV 77.8 fL (80.0-100.0)
[2021-10-29 19:00] LABS: Albumin 3.8 g/dL (3.5-5.0); Calcium 10.5 mg/dL (8.4-10.2); Potassium 4.5 mmol/L (3.5-5.1); Total Bilirubin 0.3 mg/dL (0.2-1.3)
[2021-10-29 19:04] LABS: Prothrombin Time 10.6 sec (9.0-12.0)
[2021-10-29] MEDS ORDERED: ACETAMINOPHEN TAB 325 MG TAB PO PRN (19:30)
[2021-10-29] MEDS ORDERED: NALOXONE 0.4 MG/ML 1 ML VIAL IV PRN (19:30)
[2021-10-29] MEDS ORDERED: ERTAPENEM 1 GM in SODIUM CHLORIDE 0.9% 50 ML IVPB ONE (19:45)
[2021-10-29 20:59] LABS: Glucose,Whole Blood 129 mg/dL (75-99)
[2021-10-29] MEDS: SODIUM CHLORIDE 0.9% 1,000 ML IV SCH (21:03)
--- NOTE | 2021-10-30 00:58 | P.HPIM ---
History of Present Illness H&P Date: 10/29/21 Patient is a 41-year-old female, resident of [facility] with a PMH of hypertension, hyperlipidemia, type II DM, chronic kidney disease, peripheral vascular disease status post left femoral popliteal bypass and femoral artery angioplasty, with nonhealing left ankle wound who was sent to the emergency room due to nonhealing ulcer. The patient reports that she has essentially been bedbound and has had persistent left ankle pain over the past several months. Denies any additional complaints however. He denies experiencing chest pain, shortness of breath, fever, chills, cough, nausea, vomiting, abdominal pain, urinary complaints, diarrhea. After evaluation remarkable for leukocytosis of 15.6, hemoglobin 9.7, MCV 77.8, BUN 40, creatinine 1.33, and calcium 10.5, with UA consistent with UTI. Left ankle and foot x-rays revealed no evidence of osteomyelitis or fractures. Review of systems: Pertinent positives and negatives as discussed in HPI, a complete review of systems was performed and all other systems are negative. Physical examination: General: non toxic, no distress, appears older than stated age, frail Derm: Left ankle lateral ulcer 3 cm stage 3, L ankle dorsal unstageable ulcer 4- 5 cm, no unusual ecchymoses, warm, dry Head: atraumatic, normocephalic, symmetric Eyes: EOMI, no lid lag, anicteric sclera, pupils equal round reactive to light ENT: Nose and ears atraumatic, no thrush, no pharyngeal erythema Neck: No thyromegaly, no cervical lymphadenopathy, trachea midline, supple Mouth: no lip lesion, mucus membranes moist Cardiovascular: S1S2 reg, no murmur, positive posterior tibial pulse bilateral, no edema, capillary refill less than 2 seconds Lungs: CTA bilateral, no rhonchi, no rales , no accessory muscle use Abdominal: soft, nontender to palpation, no guarding, no appreciable organomegaly, normal bowel sounds Ext: no gross muscle atrophy, muscle strength 3 out of 5 in bilateral lower extremities, strength 4 out of 5 in bilateral upper extremities , no con tractures, Neuro: CN II-XI grossly intact, light touch intact all 4 extremities, finger to nose within normal limits Psych: Alert, oriented, appropriate affect Assessment/plan Nonhealing left ankle ulcers, unstageable -Wound care and infectious disease consults -Follow up blood and wound cultures Prerenal azotemia -Continue with IV fluids Abnormal UA, likely colonization -Hold off on IV antibiotics at this time Chronic conditions: Hypertension, hyperlipidemia, type II DM, peripheral vas cular disease -Continue home medications -Insulin sliding scale and blood glucose monitoring DVT prophylaxis -Heparin subcu The patient is admitted with an anticipated greater than 2 midnight stay for evaluation of L ankle ulcers CODE STATUS: Full Code Discussed with: Patient Anticipated discharge date: 2-[address]: Home Past Medical History Past Medical History: Diabetes Mellitus, Hyperlipidemia, Hypertension, Myocardial Infarction ([place]), Vascular Disorder Additional Past Medical History / Comment(s): DM type 2, pressure ulcers to the left foot, generalized weakness, non ambulatory, anemia Last Myocardial Infarction Date:: 1989 History of Any Multi-Drug Resistant Organisms: None Reported Date of last positivie culture/infection: 09/01/21 MDRO Source:: ESBL URINE Past Surgical History: No Surgical Hx Reported, Orthopedic Surgery Additional Past Surgical History / Comment(s): "Female surgery to help with .". vascular surgery to right leg, left ankle fracture w/displacement, Past Anesthesia/Blood Transfusion Reactions: No Reported Reaction Past Psychological History: No Psychological Hx Reported Smoking Status: Former smoker Past Alcohol Use History: None Reported, Rare Additional Past Alcohol Use History / Comment(s): Quit smoking 28 yrs ago. Past Drug Use History: None Reported Additional Drug Use History / Comment(s): "Pot once in a great while". - Past Family History Mother Family Medical History: Cancer Medications and Allergies Home Medications Medication Instructions Recorded Confirmed Type Ergocalciferol [Vitamin D2 (1250 1,250 mcg PO TU@69907/16/21 10/29/21 History Mcg = 62100 Iu)] Magnesium Oxide [Magox 400] 400 mg PO DAILY@69907/16/21 10/29/21 History Linagliptin [Tradjenta] 5 mg PO DAILY@69907/26/21 10/29/21 History Tamsulosin [Flomax] 0.4 mg PO DAILY@69907/26/21 10/29/21 History amLODIPine BESYLATE 10 mg PO HS@199907/26/21 10/29/21 History Atorvastatin [Lipitor] 20 mg PO HS@199908/15/21 10/29/21 History Clopidogrel [Plavix] 75 mg PO HS@199908/15/21 10/29/21 History Docusate [Colace] 100 mg PO DAILY PRN 08/15/21 10/29/21 History Melatonin 5 mg PO HS@199908/15/21 10/29/21 History Promethazine HCl 12.5 mg PO Q8H PRN 08/15/21 10/29/21 History bisacodyL [Dulcolax] 10 mg RECTAL DAILY PRN supp 08/29/21 10/29/21 Rx Acetaminophen [Acetaminophen ER] 650 mg PO Q6H PRN 10/03/21 10/29/21 History HYDROcodone/APAP 5-325MG [[place] 1 tab PO Q6HR PRN 10/03/21 10/29/21 History 5-325] Lactulose [Cephulac] 30 gm PO BID@0700,1600 10/03/21 10/29/21 History Povidone-Iodine [Betadine] 1 applic TOPICAL HS@199910/03/21 10/29/21 History polyethylene glycoL 3350 [Miralax] 17 gm PO DAILY@0700 10/03/21 10/29/21 History Multivitamins, Thera [Multivitamin 1 tab PO DAILY@0700 10/29/21 10/29/21 History (formulary)] Allergies Allergy/AdvReac Type Severity Reaction Status Date / Time codeine AdvReac Itching Verified 10/29/21 18:46 Physical Exam Vitals: Vital Signs Temp Pulse Pulse Resp BP BP Pulse Ox 10/29/21 20:00 98.4 F 78 16 124/64 99 10/29/21 16:45 97.1 F L 77 16 105/67 98 Intake and Output 10/29/21 10/29/21 10/30/21 14:59 22:59 06:59 Other: Weight 54.885 kg Results CBC & Chem 7: 10/29/21 18:10 10/29/21 18:10 Labs: Abnormal Lab Results - Last 24 Hours (Table) 10/29/21 10/29/21 10/29/21 Range/Units 18:10 18:10 20:57 WBC 15.6 H (3.8-10.6) k/uL Hgb 9.7 L (11.4-16.0) gm/dL Hct 31.2 L (34.0-46.0) % MCV 77.8 L D (80.0-100.0) fL MCH 24.2 L (25.0-35.0) pg Plt Count 671 H (150-450) k/uL Neutrophils # 11.8 H (1.3-7.7) k/uL Sodium 136 L (137-145) mmol/L BUN 42 H (7-17) mg/dL Creatinine 1.33 H (0.52-1.04) mg/dL Glucose 129 H (74-99) mg/dL POC Glucose (mg/dL) 129 H (75-99) mg/dL Calcium 10.5 H (8.4-10.2) mg/dL Alkaline Phosphatase 150 H (38-126) U/L Thrombosis Risk Factor Assmnt - Choose All That Apply Any of the Below Risk Factors Present?: No Other Risk Factors: Yes Each Risk Factor Represents 2 Points: Age 61-74 years Other congenital or acquired thrombophilia - If yes, enter type in comment: No Thrombosis Risk Factor Assessment Total Risk Factor Score: 2 Thrombosis Risk Factor Assessment Level: Low Risk
[2021-10-30 06:59] LABS: Glucose,Whole Blood 111 mg/dL (75-99)
[2021-10-30] MEDS: INSULIN ASPART (NovoLOG) 100 UNIT/ML VIAL SQ SCH ×4 (07:02→21:00)
[2021-10-30] MEDS: HEPARIN SODIUM,PORCINE/PF 5,000 UNIT/0.5 ML SYRINGE SQ SCH ×3 (07:30→23:36)
[2021-10-30] MEDS: LACTULOSE 20 GM/30 ML CUP PO SCH ×2 (07:30→16:41)
[2021-10-30] MEDS: MAGNESIUM OXIDE 400 MG TAB PO SCH (07:30)
[2021-10-30] MEDS: TAMSULOSIN 0.4 MG CAP.ER.24H PO SCH (07:30)
[2021-10-30] MEDS: polyethylene glycoL 3350 17 GM POWD.PACK PO SCH (07:31)
[2021-10-30] MEDS: SODIUM CHLORIDE 0.9% 1,000 ML IV SCH ×2 (08:33→20:59)
[2021-10-30 09:22] LABS: Basophils # (A) 0.07 X 10*3/uL (0.00-0.10); Basophils % (A) 0.5 %; Eosinophils # (A) 0.15 X 10*3/uL (0.04-0.35); HCT 27.7 % (37.2-46.3); HGB 8.4 g/dL (12.0-15.0); Immature Grans, Automated 0.5 %; Lymphocytes # (A) 2.68 X 10*3/uL (0.90-5.00); Lymphocytes % (A) 17.9 %; MCH 23.7 pg (27.0-32.0); MCHC 30.3 g/dL (32.0-37.0); Mean Platelet Volume 9.2 fL (9.5-12.2); Monocytes # (A) 0.89 X 10*3/uL (0.20-1.00); Monocytes % (A) 5.9 %; NRBC Per 100 WBC 0 /100 WBCS (0.0-0.0); Neutrophils # (A) 11.12 X 10*3/uL (1.80-7.70); Neutrophils % (A) 74.2 %; Platelet Count 512 X 10*3/uL (140-440); RBC 3.55 X 10*6/uL (4.10-5.20); RDW 14.6 % (11.5-14.5); WBC 14.99 X 10*3/uL (4.50-10.00)
[2021-10-30 11:14] LABS: Glucose,Whole Blood 124 mg/dL (75-99)
--- NOTE | 2021-10-30 11:22 | P.CONS ---
History of Present Illness - Reason for Consult Consult date: 10/30/21 wound care - History of Present Illness This is a 71 year old female known to the wound care center. Patient was recently dischraged from the wound care center due to difficulty in transportation. Wound care was transferred to the extended care facility due to these circumstances. Patient presents with a left lateral foot ulceration with purulent drainage. Left dorsal foot ulceration with scab present, multiple medial left lower extremity ulcerations that are showing improvement. In the left groin ulceration with undermining and tunneling noted. Patient has significant amount of slough noted to the groin ulceration. Due to her previous femoral revascularization a wound VAC would not be recommended due surgical intervention. Review Of Systems: Constitutional: No fever, no chills, no night sweats. No weight change. No weakness, fatigue or lethargy. No daytime sleepiness. Integumentary:reports wounds, no lesions. No rash or pruritus. No unusual bruising. No change in hair or nails. Physical exam: General Appearance: Alert, cooperative, no distress, appears stated age. Skin: See HPI all other Skin color, texture, tugor normal, no rashes or lesions. Neurologic: Alert oriented x3 Assessment: 1. Pressure ulcer of left heel unstageable 2. Disruption of external operation not elsewhere classified. 3. Non-pressure ulceration of left cast with muscle involvement without evidence of necrosis 4. Nonpressure ulceration of left ankle with fat layer exposure 5. Nonpressure ulcer of other part of left foot with fatty layer exposure Plan: 1. Left groin ulceration apply absorptive silver, saline moistened gauze, and border gauze. Change Thursday 2. Left dorsal foot, left lateral foot, left lower extremity ulcerations: Apply Santyl, saline moist gauze, dry gauze and border foam. Change daily. Thank you for the consultation any questions to contact the wound care center DNP note has been reviewed and discussed with Dr. Ascencio and the impression and plan of care has been directed as dictated. Past Medical History Past Medical History: Diabetes Mellitus, Hyperlipidemia, Hypertension, Myocard ial Infarction ([place]), Vascular Disorder Additional Past Medical History / Comment(s): DM type 2, pressure ulcers to the left foot, generalized weakness, non ambulatory, anemia Last Myocardial Infarction Date:: Approx 1989 History of Any Multi-Drug Resistant Organisms: None Reported Year Discovered:: 09/01/21 MDRO Source:: ESBL URINE Past Surgical History: No Surgical Hx Reported, Orthopedic Surgery Additional Past Surgical History / Comment(s): "Female surgery to help with .". vascular surgery to right leg, left ankle fracture w/displacement, Past Anesthesia/Blood Transfusion Reactions: No Reported Reaction Past Psychological History: No Psychological Hx Reported Smoking Status: Former smoker Past Alcohol Use History: None Reported, Rare Additional Past Alcohol Use History / Comment(s): Quit smoking 28 yrs ago. Past Drug Use History: None Reported Additional Drug Use History / Comment(s): "Pot once in a great while". - Past Family History Mother Family Medical History: Cancer Medications and Allergies Home Medications Medication Instructions Recorded Confirmed Type Ergocalciferol [Vitamin D2 (1250 1,250 mcg PO TU@69907/16/21 10/29/21 History Mcg = 55851 Iu)] Magnesium Oxide [Magox 400] 400 mg PO DAILY@69907/16/21 10/29/21 History Linagliptin [Tradjenta] 5 mg PO DAILY@69907/26/21 10/29/21 History Tamsulosin [Flomax] 0.4 mg PO DAILY@69907/26/21 10/29/21 History amLODIPine BESYLATE 10 mg PO HS@199907/26/21 10/29/21 History Atorvastatin [Lipitor] 20 mg PO HS@199908/15/21 10/29/21 History Clopidogrel [Plavix] 75 mg PO HS@199908/15/21 10/29/21 History Docusate [Colace] 100 mg PO DAILY PRN 08/15/21 10/29/21 History Melatonin 5 mg PO HS@199908/15/21 10/29/21 History Promethazine HCl 12.5 mg PO Q8H PRN 08/15/21 10/29/21 History bisacodyL [Dulcolax] 10 mg RECTAL DAILY PRN supp 08/29/21 10/29/21 Rx Acetaminophen [Acetaminophen ER] 650 mg PO Q6H PRN 10/03/21 10/29/21 History HYDROcodone/APAP 5-325MG [[place] 1 tab PO Q6HR PRN 10/03/21 10/29/21 History 5-325] Lactulose [Cephulac] 30 gm PO BID@0700,1600 10/03/21 10/29/21 History Povidone-Iodine [Betadine] 1 applic TOPICAL HS@2000 10/03/21 10/29/21 History polyethylene glycoL 3350 [Miralax] 17 gm PO DAILY@0700 10/03/21 10/29/21 History Multivitamins, Thera [Multivitamin 1 tab PO DAILY@0700 10/29/21 10/29/21 History (formulary)] Allergies Allergy/AdvReac Type Severity Reaction Status Date / Time codeine AdvReac Itching Verified 10/29/21 18:46 Physical Exam Vitals: Vital Signs Temp Pulse Pulse Pulse Resp BP BP 10/30/21 04:09 97.9 F 70 18 134/68 10/29/21 21:00 78 16 10/29/21 20:00 98.4 F 78 16 124/64 10/29/21 16:45 97.1 F L 77 16 105/67 Pulse Ox 10/30/21 04:09 99 10/29/21 21:00 10/29/21 20:00 99 10/29/21 16:45 98 Intake and Output 10/29/21 10/30/21 10/30/21 22:59 06:59 14:59 Intake Total 850 Output Total 250 Balance 600 Intake: Intake, IV Titration 850 Amount Ertapenem 1 gm In Sodium 100 Chloride 0.9% 50 ml @ 100 mls/hr IVPB ONCE ONE Rx# :[id number] Sodium Chloride 0.9% 1, 750 000 ml @ 75 mls/hr IV . [id number] [facility] Rx#:[id number] Output: Urine 250 Other: Voiding Method Indwelling Catheter Indwelling Catheter Weight 54.885 kg Results CBC & Chem 7: 10/30/21 06:20 10/29/21 18:10 Labs: Abnormal Lab Results - Last 24 Hours (Table) 10/29/21 10/29/21 10/29/21 Range/Units 18:10 18:10 20:57 WBC 15.6 H (3.8-10.6) k/uL RBC (4.10-5.20) X 10*6/uL Hgb 9.7 L (11.4-16.0) gm/dL Hct 31.2 L (34.0-46.0) % MCV 77.8 L D (80.0-100.0) fL MCH 24.2 L (25.0-35.0) pg MCHC (32.0-37.0) g/dL RDW (11.5-14.5) % Plt Count 671 H (150-450) k/uL MPV (9.5-12.2) fL Immature Gran # (0.00-0.04) X 10*3/uL Neutrophils # 11.8 H (1.3-7.7) k/uL Sodium 136 L (137-145) mmol/L BUN 42 H (7-17) mg/dL Creatinine 1.33 H (0.52-1.04) mg/dL Glucose 129 H (74-99) mg/dL POC Glucose (mg/dL) 129 H (75-99) mg/dL Calcium 10.5 H (8.4-10.2) mg/dL Alkaline Phosphatase 150 H (38-126) U/L 10/30/21 10/30/21 Range/Units 06:20 06:58 WBC 14.99 H (3.8-10.6) k/uL RBC 3.55 L (4.10-5.20) X 10*6/uL Hgb 8.4 L (11.4-16.0) gm/dL Hct 27.7 L (34.0-46.0) % MCV 78.0 L (80.0-100.0) fL MCH 23.7 L (25.0-35.0) pg MCHC 30.3 L (32.0-37.0) g/dL RDW 14.6 H (11.5-14.5) % Plt Count 512 H (150-450) k/uL MPV 9.2 L (9.5-12.2) fL Immature Gran # 0.08 H (0.00-0.04) X 10*3/uL Neutrophils # 11.12 H (1.3-7.7) k/uL Sodium (137-145) mmol/L BUN (7-17) mg/dL Creatinine (0.52-1.04) mg/dL Glucose (74-99) mg/dL POC Glucose (mg/dL) 111 H (75-99) mg/dL Calcium (8.4-10.2) mg/dL Alkaline Phosphatase (38-126) U/L Microbiology - Last 24 Hours (Table) 10/29/21 18:10 Gram Stain - Preliminary Ankle - Left Wound Culture - Preliminary Assessment and Plan (1) Non-pressure chronic ulcer of left thigh with muscle involvement without evidence of necrosis Current Visit: Yes Status: Acute Code(s): L97.125 - NON-PRS CHR ULC OF LEFT THIGH WITH MSL INVL W/O EVD OF NECR SNOMED Code(s): 132626306 (2) Non-pressure chronic ulcer of left ankle with fat layer exposed Current Visit: Yes Status: Acute Code(s): L97.322 - NON-PRESSURE CHRONIC ULCER OF LEFT ANKLE W FAT LAYER EXPOSED SNOMED Code(s): 48159444750872285 (3) Non-pressure chronic ulcer of other part of left foot with fat layer exposed Current Visit: Yes Status: Acute Code(s): L97.522 - NON-PRS CHRONIC ULCER OTH PRT LEFT FOOT W FAT LAYER EXPOSED SNOMED Code(s): 189755285 (4) Non-pressure ulcer of left lower extremity with fat layer exposed Current Visit: No Status: Acute Code(s): L97.922 - NON-PRS CHR ULC UNSP PRT OF L LOW LEG W FAT LAYER EXPOSED SNOMED Code(s): 63901356 (5) Pressure ulcer of left heel, unstageable Current Visit: No Status: Acute Code(s): L89.620 - PRESSURE ULCER OF LEFT HEEL, UNSTAGEABLE SNOMED Code(s): 270541997
[2021-10-30 12:49] VITALS: BMI 18.3
[2021-10-30] MEDS: COLLAGENASE 250 UNIT/GM OINTMENT 30 GM TUBE TOPICAL SCH (14:24)
--- NOTE | 2021-10-30 16:07 | P.PN ---
Subjective Progress Note Date: 10/30/21 Hospital course: Patient is a very pleasant 70-year-old female with a past medical history of CAD with previous NV, hypertension, hyperlipidemia, stage III chronic kidney disease, diabetes mellitus, status post ORIF of left ankle on 06/14/21 resulting in delayed wound healing and also radiation secondary to patient's severe peripheral arterial occlusive disease, patient has since underwent left femoral popliteal bypass graft and femoral artery angioplasty on 07/29/21 and is now returning to the emergency department secondary to this nonhealing left ankle wound/ulceration. Patient underwent full evaluation in the emergency department and was found to have leukocytosis with WBC count of 15.6, microchromic hypochromic anemia with hemoglobin of 9.7, Renal function consistent with stage III CKD with BUN 42, creatinine 1.33, and GFR 40 (baseline creatinine 1.5). X- ray left ankle showing no focal bone distraction and no signs of osteomyelitis with calcaneal spurring and evidence of previous internal fixation intact. X- ray left foot showing no evidence of osteomyelitis, no fracture and positive for atherosclerotic disease. EKG completed showing normal sinus rhythm at 70 bpm with no noted T-wave or ST abnormalities. Wound cultures obtained and sent to lab for analysis. Patient was started on IV antibiotic Invanz and admitted under our services with consultation to vascular surgery, infectious disease and wound care. Physical exam: Vital signs reviewed and stable. General: Nontoxic, no distress and appears stated age. Derm: Skin warm and dry, normal coloration for ethnicity. 3 cm ulceration the l eft lateral ankle as well as ulceration to the dorsal surface of left foot/ankle region, appears to be in healing stages with no surrounding erythema or necrotic tissue. Head: Atraumatic, normocephalic and symmetric. Eyes: EOMs intact, no lid lag, and anicteric sclera Mouth: no lip lesions, mucus membranes moist Cardiovascular: regular rate and rhythm with normal S1S2, systolic murmur, positive posterior tibial pulses bilaterally, and cap refill < 2 seconds. Lungs: Respirations even, regular, and unlabored on room air. Lungs CTA bilaterally, no rhonchi, no rales, no wheezing, and no accessory muscle usage. Abdominal: soft, nontender to palpation, no guarding, no appreciable organome leonardo Ext: ROM intact. No gross muscle atrophy, no edema, no contractures Neuro: Speech clear, face symmetrical and CN II-XII grossly intact with no noted focal neuro deficits Psych: Alert and oriented to person, place, time, and situation. Appropriate and pleasant affect. Assessment and Plan of Care: Nonhealing ulcer of the left ankle and dorsal surface of left foot status post ORIF of left ankle on 06/14/21 Severe peripheral arterial occlusive disease status post left femoral popliteal bypass graft and femoral artery angioplasty 07/29/21 -Patient received 1 dose of Invanz in the ER, we will hold off on further antibiotics pending further results as wound does not appear to be infected at this time. -Wound culture obtained and sent to lab for analysis. -Infectious disease consulted, appreciate further recommendations. -Wound care was consulted, appreciate further recommendations. -Vascular surgery consulted, appreciate further recommendations -Symptomatic care and pain management. -Continue daily medication regimen with Plavix 75 mg nightly. Hypertension -Monitor vital signs and continue daily medication regimen with amlodipine. Hyperlipidemia -Continue daily medication regimen with atorvastatin 20 mg nightly. Stage III chronic kidney disease -Stable, we will continue to monitor with repeat a.m. labs Diabetes mellitus -Glycemic protocol with NovoLog sliding scale. CODE STATUS: Full code DVT prophylaxis: Heparin Discussed with: Patient and RN Anticipated discharge date: Clinical course to determine Anticipated discharge place: Home A total of 37 minutes was spent on the care of this complex patient more than 50% of the time was spent in counseling and care coordination. Rudy Duff NP rendered care for this patient independently, reviewed the findings and plan as documented in the note above. I did not physically speak with or examine the patient on this date. Objective - Vital Signs Vital signs: Vital Signs Temp 97.9 F 10/30/21 04:09 Pulse 70 10/30/21 04:09 Resp 18 10/30/21 04:09 BP 134/68 10/30/21 04:09 Pulse Ox 99 10/30/21 04:09 FiO2 Intake & Output 10/29/21 10/30/21 10/30/21 18:59 06:59 18:59 Intake Total 850 Output Total 250 Balance 600 Weight 54.885 kg 54.885 kg Intake: Intake, IV Titration 850 Amount Ertapenem 1 gm In Sodium 100 Chloride 0.9% 50 ml @ 100 mls/hr IVPB ONCE ONE Rx# :[id number] Sodium Chloride 0.9% 1, 750 000 ml @ 75 mls/hr IV . [id number] [facility] Rx#:[id number] Output: Urine 250 Other: Voiding Method Indwelling Catheter Indwelling Catheter - Labs CBC & Chem 7: 10/30/21 06:20 10/29/21 18:10 Labs: Abnormal Lab Results - Last 24 Hours (Table) 10/29/21 10/29/21 10/29/21 Range/Units 18:10 18:10 20:57 WBC 15.6 H (3.8-10.6) k/uL Hgb 9.7 L (11.4-16.0) gm/dL Hct 31.2 L (34.0-46.0) % MCV 77.8 L D (80.0-100.0) fL MCH 24.2 L (25.0-35.0) pg Plt Count 671 H (150-450) k/uL Neutrophils # 11.8 H (1.3-7.7) k/uL Sodium 136 L (137-145) mmol/L BUN 42 H (7-17) mg/dL Creatinine 1.33 H (0.52-1.04) mg/dL Glucose 129 H (74-99) mg/dL POC Glucose (mg/dL) 129 H (75-99) mg/dL Calcium 10.5 H (8.4-10.2) mg/dL Alkaline Phosphatase 150 H (38-126) U/L 10/30/21 Range/Units 06:58 WBC (3.8-10.6) k/uL Hgb (11.4-16.0) gm/dL Hct (34.0-46.0) % MCV (80.0-100.0) fL MCH (25.0-35.0) pg Plt Count (150-450) k/uL Neutrophils # (1.3-7.7) k/uL Sodium (137-145) mmol/L BUN (7-17) mg/dL Creatinine (0.52-1.04) mg/dL Glucose (74-99) mg/dL POC Glucose (mg/dL) 111 H (75-99) mg/dL Calcium (8.4-10.2) mg/dL Alkaline Phosphatase (38-126) U/L Microbiology - Last 24 Hours (Table) 10/29/21 18:10 Wound Culture - Preliminary Ankle - Left
[2021-10-30 17:12] LABS: Glucose,Whole Blood 111 mg/dL (75-99)
[2021-10-30] MEDS ORDERED: ERTAPENEM 1 GM in SODIUM CHLORIDE 0.9% 50 ML IVPB SCH (20:00)
[2021-10-30 20:38] LABS: Glucose,Whole Blood 140 mg/dL (75-99)
[2021-10-30] MEDS: amLODIPine 10 MG TAB PO SCH (20:58)
[2021-10-30] MEDS: CLOPIDOGREL 75 MG TAB PO SCH (20:59)
[2021-10-30] MEDS: ATORVASTATIN 20 MG TAB PO SCH (20:59)
[2021-10-30] MEDS: MELATONIN 5 MG TABLET PO SCH (20:59)
[2021-10-31 07:00] LABS: Glucose,Whole Blood 107 mg/dL (75-99)
--- NOTE | 2021-10-31 07:01 | P.CONS ---
History of Present Illness - Reason for Consult Consult date: 10/30/21 Wound infection Requesting physician: Miguel Adame - Chief Complaint non healing L ankle wounds x months - History of Present Illness Patient is a 71-year female with a past medical history significant hypertension hyperlipidemia type 2 diabetes mellitus patient did have history of nonhealing left ankle wound and did have a history of left femoral popliteal bypass and femoral artery angioplasty the patient has been sent to the ER for evaluation of a nonhealing wound to the left ankle area which has been going on for couple of months now, patient on presentation to the hospital was afebrile patient did have white count of 15.6 with a left shift BUN/creatinine was mildly elevated blood cultures which are currently pending wound cultures obtained which are currently pending patient was given a dose of ertapenem has been admitted to the hospital infectious disease was consulted for further management of antibiotic therapy, patient has not been elevated good historian she has been complaining of pain to the left ankle area did not mention any recent worsening denies having any foul-smelling drainage no chest pain shortness of breath or cough no nausea no vomiting no abdominal pain no diarrhea Review of Systems Positive point has been mentioned in the HPI rest of the systems are negative Past Medical History Past Medical History: Diabetes Mellitus, Hyperlipidemia, Hypertension, Myocardial Infarction ([place]), Vascular Disorder Additional Past Medical History / Comment(s): DM type 2, pressure ulcers to the left foot, generalized weakness, non ambulatory, anemia Last Myocardial Infarction Date:: 1989 History of Any Multi-Drug Resistant Organisms: None Reported Year Discovered:: 09/01/21 MDRO Source:: ESBL URINE Past Surgical History: No Surgical Hx Reported, Orthopedic Surgery Additional Past Surgical History / Comment(s): "Female surgery to help with .". vascular surgery to right leg, left ankle fracture w/displacement, Past Anesthesia/Blood Transfusion Reactions: No Reported Reaction Past Psychological History: No Psychological Hx Reported Smoking Status: Former smoker Past Alcohol Use History: None Reported, Rare Additional Past Alcohol Use History / Comment(s): Quit smoking 28 yrs ago. Past Drug Use History: None Reported Additional Drug Use History / Comment(s): "Pot once in a great while". - Past Family History Mother Family Medical History: Cancer Medications and Allergies Home Medications Medication Instructions Recorded Confirmed Type Ergocalciferol [Vitamin D2 (1250 1,250 mcg PO TU@0700 07/16/21 10/29/21 History Mcg = 60215 Iu)] Magnesium Oxide [Magox 400] 400 mg PO DAILY@0700 07/16/21 10/29/21 History Linagliptin [Tradjenta] 5 mg PO DAILY@0707/26/21 10/29/21 History Tamsulosin [Flomax] 0.4 mg PO DAILY@69907/26/21 10/29/21 History amLODIPine BESYLATE 10 mg PO HS@199907/26/21 10/29/21 History Atorvastatin [Lipitor] 20 mg PO HS@199908/15/21 10/29/21 History Clopidogrel [Plavix] 75 mg PO HS@199908/15/21 10/29/21 History Docusate [Colace] 100 mg PO DAILY PRN 08/15/21 10/29/21 History Melatonin 5 mg PO HS@199908/15/21 10/29/21 History Promethazine HCl 12.5 mg PO Q8H PRN 08/15/21 10/29/21 History bisacodyL [Dulcolax] 10 mg RECTAL DAILY PRN supp 08/29/21 10/29/21 Rx Acetaminophen [Acetaminophen ER] 650 mg PO Q6H PRN 10/03/21 10/29/21 History HYDROcodone/APAP 5-325MG [[place] 1 tab PO Q6HR PRN 10/03/21 10/29/21 History 5-325] Lactulose [Cephulac] 30 gm PO BID@0700,1600 10/03/21 10/29/21 History Povidone-Iodine [Betadine] 1 applic TOPICAL HS@199910/03/21 10/29/21 History polyethylene glycoL 3350 [Miralax] 17 gm PO DAILY@0700 10/03/21 10/29/21 History Multivitamins, Thera [Multivitamin 1 tab PO DAILY@0700 10/29/21 10/29/21 History (formulary)] Allergies Allergy/AdvReac Type Severity Reaction Status Date / Time codeine AdvReac Itching Verified 10/29/21 18:46 Physical Exam Vitals: Vital Signs Temp Pulse Pulse Pulse Resp BP BP 10/30/21 12:27 98.2 F 75 15 132/62 10/30/21 04:09 97.9 F 70 18 134/68 10/29/21 21:00 78 16 10/29/21 20:00 98.4 F 78 16 124/64 10/29/21 16:45 97.1 F L 77 16 105/67 Pulse Ox 10/30/21 12:27 100 10/30/21 04:09 99 10/29/21 21:00 10/29/21 20:00 99 10/29/21 16:45 98 Intake and Output 10/30/21 10/30/21 10/30/21 06:59 14:59 22:59 Intake Total 850 Output Total 250 Balance 600 Intake: Intake, IV Titration 850 Amount Ertapenem 1 gm In Sodium 100 Chloride 0.9% 50 ml @ 100 mls/hr IVPB ONCE ONE Rx# :[id number] Sodium Chloride 0.9% 1, 750 000 ml @ 75 mls/hr IV . [id number] [facility] Rx#:[id number] Output: Urine 250 Other: Voiding Method Indwelling Catheter Weight 54.885 kg GENERAL DESCRIPTION: An elderly female lying in bed, no distress. No tachypnea or accessory muscle of respiration use. HEENT: Shows Pallor , no scleral icterus. Oral mucous membrane is dry. No pharyngeal erythema or thrush NECK: Trachea central, no thyromegaly. LUNGS: Unlabored breathing. Clear to auscultation anteriorly. No wheeze or crackle. HEART: S1, S2, regular rate and rhythm. No loud murmur ABDOMEN: Soft, no tenderness , guarding or rigidity, no organomegaly EXTREMITIES: Bilateral heel with necrotic wounds unstageable pressure ulcer, left heel ankle area did have multiple wounds with some necrotic edges but no redness no drainage, left groin wound deep but no slough tissue and no drainage SKIN: No rash, no masses palpable. NEUROLOGICAL: The patient is awake, alert, oriented x3, mood and affect normal. Results CBC & Chem 7: 10/30/21 06:20 10/29/21 18:10 Labs: Abnormal Lab Results - Last 24 Hours (Table) 10/29/21 10/29/21 10/29/21 Range/Units 18:10 18:10 20:57 WBC 15.6 H (3.8-10.6) k/uL RBC (4.10-5.20) X 10*6/uL Hgb 9.7 L (11.4-16.0) gm/dL Hct 31.2 L (34.0-46.0) % MCV 77.8 L D (80.0-100.0) fL MCH 24.2 L (25.0-35.0) pg MCHC (32.0-37.0) g/dL RDW (11.5-14.5) % Plt Count 671 H (150-450) k/uL MPV (9.5-12.2) fL Immature Gran # (0.00-0.04) X 10*3/uL Neutrophils # 11.8 H (1.3-7.7) k/uL Sodium 136 L (137-145) mmol/L BUN 42 H (7-17) mg/dL Creatinine 1.33 H (0.52-1.04) mg/dL Glucose 129 H (74-99) mg/dL POC Glucose (mg/dL) 129 H (75-99) mg/dL Calcium 10.5 H (8.4-10.2) mg/dL Alkaline Phosphatase 150 H (38-126) U/L 10/30/21 10/30/21 10/30/21 Range/Units 06:20 06:58 11:12 WBC 14.99 H (3.8-10.6) k/uL RBC 3.55 L (4.10-5.20) X 10*6/uL Hgb 8.4 L (11.4-16.0) gm/dL Hct 27.7 L (34.0-46.0) % MCV 78.0 L (80.0-100.0) fL MCH 23.7 L (25.0-35.0) pg MCHC 30.3 L (32.0-37.0) g/dL RDW 14.6 H (11.5-14.5) % Plt Count 512 H (150-450) k/uL MPV 9.2 L (9.5-12.2) fL Immature Gran # 0.08 H (0.00-0.04) X 10*3/uL Neutrophils # 11.12 H (1.3-7.7) k/uL Sodium (137-145) mmol/L BUN (7-17) mg/dL Creatinine (0.52-1.04) mg/dL Glucose (74-99) mg/dL POC Glucose (mg/dL) 111 H 124 H (75-99) mg/dL Calcium (8.4-10.2) mg/dL Alkaline Phosphatase (38-126) U/L Microbiology - Last 24 Hours (Table) 10/29/21 18:10 Gram Stain - Preliminary Ankle - Left Wound Culture - Preliminary Assessment and Plan (1) Wound infection after surgery Current Visit: No Status: Acute Code(s): T81.49XA - INFECTION FOLLOWING A PROCEDURE, OTHER SURGICAL SITE, INIT SNOMED Code(s): 35369300 Plan: 1patient with a chronic nonhealing wound to the left ankle area in this patient did have multiple surgeries also left femoropopliteal bypass surgery now presented to hospital with nonhealing wound has been there for couple of months now patient did have elevated white count admission however no fever he did have multiple wounds to the left heel left groin area with some necrotic tissue no significant surrounding redness underlying infection less likely but not entirely excluded, patient has previously grown ESBL Klebsiella in the urine we will cover for gram-negative while waiting for the culture to finalize. 2we will continue the patient on Invanz 1 g daily while waiting for the culture to be finalized. 3check inflammatory markers. 4continue local wound care per wound care team. We will follow on clinical condition and cultures to further adjust medication if needed Thank you for this consultation will follow this patient along with you Time with Patient: Greater than 30
[2021-10-31] MEDS: INSULIN ASPART (NovoLOG) 100 UNIT/ML VIAL SQ SCH ×4 (07:20→21:10)
[2021-10-31] MEDS: polyethylene glycoL 3350 17 GM POWD.PACK PO SCH (07:36)
[2021-10-31 07:37] LABS: HCT 24.9 % (34.0-46.0); Hypochromasia Marked; MCH 24.6 pg (25.0-35.0); MCHC 30.8 g/dL (31.0-37.0); Mean Platelet Volume 6.7; Platelet Count 547 k/uL (150-450); RBC 3.12 m/uL (3.80-5.40); RDW 14.5 % (11.5-15.5); WBC 12.2 k/uL (3.8-10.6)
[2021-10-31] MEDS: HEPARIN SODIUM,PORCINE/PF 5,000 UNIT/0.5 ML SYRINGE SQ SCH ×2 (07:37→16:11)
[2021-10-31] MEDS: LACTULOSE 20 GM/30 ML CUP PO SCH ×2 (07:37→16:11)
[2021-10-31] MEDS: MAGNESIUM OXIDE 400 MG TAB PO SCH (07:37)
[2021-10-31] MEDS: TAMSULOSIN 0.4 MG CAP.ER.24H PO SCH (07:37)
[2021-10-31 07:41] LABS: HGB 7.7 gm/dL (11.4-16.0)
[2021-10-31 07:43] LABS: African American GFR (CKD) 68 (>60 ml/min/1.73 sqM); Anion Gap 8 mmol/L; Blood Urea Nitrogen 32 mg/dL (7-17); Calcium 8.9 mg/dL (8.4-10.2); Carbon Dioxide 26 mmol/L (22-30); Chloride 102 mmol/L (98-107); Glucose 95 mg/dL (74-99); Non-African American GFR(CKD) 59 (>60 ml/min/1.73 sqM); Potassium 3.8 mmol/L (3.5-5.1); Sodium 136 mmol/L (137-145)
[2021-10-31 07:59] LABS: C Reactive Protein 5.7 mg/dL (<1.0)
[2021-10-31] MEDS: ERTAPENEM 1 GM in SODIUM CHLORIDE 0.9% 50 ML IVPB SCH (08:49)
[2021-10-31] MEDS: COLLAGENASE 250 UNIT/GM OINTMENT 30 GM TUBE TOPICAL SCH (09:13)
--- NOTE | 2021-10-31 10:41 | P.GSCN ---
History of Present Illness Consult date: 10/31/21 Reason for Consult: Peripheral arterial disease with delayed wound healing Requesting physician: Rudy Duff History of present illness: This is a 71-year-old female known to vascular surgical services. 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 Mckeon. Patient has been in extended care facility for some time. They said patient and for further evaluation for concerns for nonhealing wounds of a possible wound infection. Apparently she and has been only seen the activities specialist through the nursing facility and they were concerned for possible infection so sent her to the emergency department for further evaluation. The patient states she does have discomfort on the left lower extremity especially near the ankle. She has multiple wounds on the left lower extremity. Wound care is on consult and has recommended absorptive silver for the left groin, Santyl to the foot and ankle. Infectious disease on consult as well and currently has patient on IV Invanz Patient with white count, however afebrile. She states that she is non- ambulatory at the [facility], does get up into a wheelchair. Has a Colby catheter present. Nursing states that has been present since June. Foot x-ray shows arthrosclerotic disease. No fracture. No evidence of osteomyelitis. Left ankle x-ray shows internal fixation. No focal bone destruction. No sign of osteomyelitis. Calcaneal spurring. Review of Systems A 14 point review systems was completed all pertinent positives and negatives as stated in the HPI. Past Medical History Past Medical History: Diabetes Mellitus, Hyperlipidemia, Hypertension, Myocardial Infarction ([place]), Vascular Disorder Additional Past Medical History / Comment(s): DM type 2, pressure ulcers to the left foot, generalized weakness, non ambulatory, anemia Last Myocardial Infarction Date:: 1989 History of Any Multi-Drug Resistant Organisms: None Reported Year Discovered:: 09/01/21 MDRO Source:: ESBL URINE Past Surgical History: No Surgical Hx Reported, Orthopedic Surgery Additional Past Surgical History / Comment(s): "Female surgery to help with .". vascular surgery to right leg, left ankle fracture w/displacement, Past Anesthesia/Blood Transfusion Reactions: No Reported Reaction Past Psychological History: No Psychological Hx Reported Smoking Status: Former smoker Past Alcohol Use History: None Reported, Rare Additional Past Alcohol Use History / Comment(s): Quit smoking 28 yrs ago. Past Drug Use History: None Reported Additional Drug Use History / Comment(s): "Pot once in a great while". - Past Family History Mother Family Medical History: Cancer Medications and Allergies Home Medications Medication Instructions Recorded Confirmed Type Ergocalciferol [Vitamin D2 (1250 1,250 mcg PO TU@69907/16/21 10/29/21 History Mcg = 89418 Iu)] Magnesium Oxide [Magox 400] 400 mg PO DAILY@69907/16/21 10/29/21 History Linagliptin [Tradjenta] 5 mg PO DAILY@69907/26/21 10/29/21 History Tamsulosin [Flomax] 0.4 mg PO DAILY@69907/26/21 10/29/21 History amLODIPine BESYLATE 10 mg PO HS@199907/26/21 10/29/21 History Atorvastatin [Lipitor] 20 mg PO HS@199908/15/21 10/29/21 History Clopidogrel [Plavix] 75 mg PO HS@199908/15/21 10/29/21 History Docusate [Colace] 100 mg PO DAILY PRN 08/15/21 10/29/21 History Melatonin 5 mg PO HS@199908/15/21 10/29/21 History Promethazine HCl 12.5 mg PO Q8H PRN 08/15/21 10/29/21 History bisacodyL [Dulcolax] 10 mg RECTAL DAILY PRN supp 08/29/21 10/29/21 Rx Acetaminophen [Acetaminophen ER] 650 mg PO Q6H PRN 10/03/21 10/29/21 History HYDROcodone/APAP 5-325MG [[place] 1 tab PO Q6HR PRN 10/03/21 10/29/21 History 5-325] Lactulose [Cephulac] 30 gm PO BID@0700,1600 10/03/21 10/29/21 History Povidone-Iodine [Betadine] 1 applic TOPICAL HS@199910/03/21 10/29/21 History polyethylene glycoL 3350 [Miralax] 17 gm PO DAILY@69910/03/21 10/29/21 History Multivitamins, Thera [Multivitamin 1 tab PO DAILY@0700 10/29/21 10/29/21 History (formulary)] Allergies Allergy/AdvReac Type Severity Reaction Status Date / Time codeine AdvReac Itching Verified 10/29/21 18:46 Surgical - Exam Vital Signs Temp Pulse Resp BP Pulse Ox 97.1 F L 77 16 105/67 98 10/29/21 16:45 10/29/21 16:45 10/29/21 16:45 10/29/21 16:45 10/29/21 16:45 General appearance: The patient is alert, oriented, appears in no acute distress. HET: Head is normocephalic and atraumatic. Pupils are equal and reactive. Neck: Supple without lymphadenopathy. Trachea midline. No audible carotid bruit. Heart: S1 S2. Regular rate and rhythm. Lungs: Clear to auscultation bilaterally. Abdomen: Soft, nontender, nondistended. Extremities: Left lower extremity, groin with open wound with good granulation, absorptive silver present. Left heel with pressure ulcer. Left Lateral ankle wound with purlulent drainage. Ulcer to dorsal aspect of left foot. Medial calf surgical incision well approximated. Neurological: No focal deficits. Alert and oriented 3. Results - Labs 10/31/21 07:02 10/31/21 07:02 Abnormal Lab Results - Last 24 Hours (Table) 10/30/21 10/30/21 10/30/21 Range/Units 06:20 11:12 17:10 WBC 14.99 H (4.50-10.00) X 10*3/uL RBC 3.55 L (4.10-5.20) X 10*6/uL Hgb 8.4 L (12.0-15.0) g/dL Hct 27.7 L (37.2-46.3) % MCV 78.0 L (80.0-97.0) fL MCH 23.7 L (27.0-32.0) pg MCHC 30.3 L (32.0-37.0) g/dL RDW 14.6 H (11.5-14.5) % Plt Count 512 H (140-440) X 10*3/uL MPV 9.2 L (9.5-12.2) fL Immature Gran # 0.08 H (0.00-0.04) X 10*3/uL Neutrophils # 11.12 H (1.80-7.70) X 10*3/uL Sodium (137-145) mmol/L BUN (7-17) mg/dL POC Glucose (mg/dL) 124 H 111 H (75-99) mg/dL C-Reactive Protein (<1.0) mg/dL 10/30/21 10/30/21 10/31/21 Range/Units 20:36 20:36 06:59 WBC (4.50-10.00) X 10*3/uL RBC (4.10-5.20) X 10*6/uL Hgb (12.0-15.0) g/dL Hct (37.2-46.3) % MCV (80.0-97.0) fL MCH (27.0-32.0) pg MCHC (32.0-37.0) g/dL RDW (11.5-14.5) % Plt Count (140-440) X 10*3/uL MPV (9.5-12.2) fL Immature Gran # (0.00-0.04) X 10*3/uL Neutrophils # (1.80-7.70) X 10*3/uL Sodium (137-145) mmol/L BUN (7-17) mg/dL POC Glucose (mg/dL) 140 H 140 H 107 H (75-99) mg/dL C-Reactive Protein (<1.0) mg/dL 10/31/21 10/31/21 Range/Units 07:02 07:02 WBC 12.2 H (4.50-10.00) X 10*3/uL RBC 3.12 L (4.10-5.20) X 10*6/uL Hgb 7.7 L D (12.0-15.0) g/dL Hct 24.9 L (37.2-46.3) % MCV (80.0-97.0) fL MCH 24.6 L (27.0-32.0) pg MCHC 30.8 L (32.0-37.0) g/dL RDW (11.5-14.5) % Plt Count 547 H (140-440) X 10*3/uL MPV (9.5-12.2) fL Immature Gran # (0.00-0.04) X 10*3/uL Neutrophils # (1.80-7.70) X 10*3/uL Sodium 136 L (137-145) mmol/L BUN 32 H (7-17) mg/dL POC Glucose (mg/dL) (75-99) mg/dL C-Reactive Protein 5.7 H (<1.0) mg/dL Microbiology - Last 24 Hours (Table) 10/29/21 18:10 Gram Stain - Preliminary Ankle - Left Wound Culture - Preliminary Presumptive Staph aureus Gram Neg Bacilli Strep agalactiae - (group b) 10/29/21 18:15 Blood Culture - Preliminary Blood No Growth after 24 hours 10/29/21 18:00 Blood Culture - Preliminary Blood No Growth after 24 hours Diabetes panel 10/31/21 Range/Units 07:02 Sodium 136 L (137-145) mmol/L Potassium 3.8 (3.5-5.1) mmol/L Chloride 102 (98-107) mmol/L Carbon Dioxide 26 (22-30) mmol/L BUN 32 H (7-17) mg/dL Creatinine 0.96 (0.52-1.04) mg/dL Glucose 95 (74-99) mg/dL Calcium 8.9 (8.4-10.2) mg/dL Calcium panel 10/31/21 Range/Units 07:02 Calcium 8.9 (8.4-10.2) mg/dL Pituitary panel 10/31/21 Range/Units 07:02 Sodium 136 L (137-145) mmol/L Potassium 3.8 (3.5-5.1) mmol/L Chloride 102 (98-107) mmol/L Carbon Dioxide 26 (22-30) mmol/L BUN 32 H (7-17) mg/dL Creatinine 0.96 (0.52-1.04) mg/dL Glucose 95 (74-99) mg/dL Calcium 8.9 (8.4-10.2) mg/dL Adrenal panel 10/31/21 Range/Units 07:02 Sodium 136 L (137-145) mmol/L Potassium 3.8 (3.5-5.1) mmol/L Chloride 102 (98-107) mmol/L Carbon Dioxide 26 (22-30) mmol/L BUN 32 H (7-17) mg/dL Creatinine 0.96 (0.52-1.04) mg/dL Glucose 95 (74-99) mg/dL Calcium 8.9 (8.4-10.2) mg/dL Assessment and Plan Assessment: 1. Nonhealing wounds to left lower extremity 2. Peripheral arterial disease status post left femoral popliteal bypass with in situ vein and left common femoral artery thrombectomy 3. Former smoker 4. Chronic anemia Plan: 1. Arterial ultrasound ordered to evaluate bypass graft flow 2. Continue local wound care 3. Continue antibiotic recommendations per infectious disease 4. Further recommendations forthcoming per vascular surgeon Thank you for this consultation, we will continue to follow. The impression and plan of care has been dictated as directed. Dr. Vilchis I performed a history and examination of this patient, discussed the same with the dictator. I agree with the dictator's note ,documented as a scribe. Any additional findings or plans will be noted.
[2021-10-31 14:49] LABS: Glucose,Whole Blood 109 mg/dL (75-99)
--- NOTE | 2021-10-31 15:16 | P.PN ---
Subjective Progress Note Date: 10/31/21 Hospital course: Patient is a very pleasant 70-year-old female with a past medical history of CAD with previous [place], hypertension, hyperlipidemia, stage III chronic kidney disease, diabetes mellitus, status post ORIF of left ankle on 06/14/21 resulting in delayed wound healing and also radiation secondary to patient's severe peripheral arterial occlusive disease, patient has since underwent left femoral popliteal bypass graft and femoral artery angioplasty on 07/29/21 and is now returning to the emergency department secondary to this nonhealing left ankle wound/ulceration. Patient underwent full evaluation in the emergency department and was found to have leukocytosis with WBC count of 15.6, microchromic hypochromic anemia with hemoglobin of 9.7, Renal function consistent with stage III CKD with BUN 42, creatinine 1.33, and GFR 40 (baseline creatinine 1.5). X- ray left ankle showing no focal bone distraction and no signs of osteomyelitis with calcaneal spurring and evidence of previous internal fixation intact. X- ray left foot showing no evidence of osteomyelitis, no fracture and positive for atherosclerotic disease. EKG completed showing normal sinus rhythm at 70 bpm with no noted T-wave or ST abnormalities. Wound cultures obtained and sent to lab for analysis. Patient was started on IV antibiotic Invanz and admitted under our services with consultation to vascular surgery, infectious disease and wound care. Physical exam: Patient seen and fully evaluated at bedside this morning. She reports intermittent pain remains to left lower extremity otherwise denies having any complaints or concerns at this time. Vital signs remained stable and patient remains afebrile. Vascular surgery evaluated and placed order for arterial ultrasound of left lower extremity to evaluate bypass graft. Infectious disease evaluated and recommending continuation of Invanz pending culture results. Morning labs pending. Vital signs reviewed and stable. General: Nontoxic, no distress and appears stated age. Derm: Skin warm and dry, normal coloration for ethnicity. 3 cm ulceration the left lateral ankle as well as ulceration to the dorsal surface of left foot/ankle region, appears to be in healing stages with no surrounding erythema or necrotic tissue. Head: Atraumatic, normocephalic and symmetric. Eyes: EOMs intact, no lid lag, and anicteric sclera Mouth: no lip lesions, mucus membranes moist Cardiovascular: regular rate and rhythm with normal S1S2, systolic murmur, positive posterior tibial pulses bilaterally, and cap refill < 2 seconds. Lungs: Respirations even, regular, and unlabored on room air. Lungs CTA bilaterally, no rhonchi, no rales, no wheezing, and no accessory muscle usage. Abdominal: soft, nontender to palpation, no guarding, no appreciable organomegaly Ext: ROM intact. No gross muscle atrophy, no edema, no contractures Neuro: Speech clear, face symmetrical and CN II-XII grossly intact with no noted focal neuro deficits Psych: Alert and oriented to person, place, time, and situation. Appropriate and pleasant affect. Assessment and Plan of Care: Nonhealing ulcer of the left ankle and dorsal surface of left foot status post ORIF of left ankle on 06/14/21 Severe peripheral arterial occlusive disease status post left femoral popliteal bypass graft and femoral artery angioplasty 07/29/21 -IV antibiotics: Invanz -Wound culture obtained and sent to lab for analysis. -Infectious disease consulted, appreciate further recommendations. -Wound care was consulted, appreciate further recommendations. -Vascular surgery consulted, ordered left lower extremity arterial duplex, appreciate further recommendations -Symptomatic care and pain management. -Continue daily medication regimen with Plavix 75 mg nightly. Hypertension -Monitor vital signs and continue daily medication regimen with amlodipine. Hyperlipidemia -Continue daily medication regimen with atorvastatin 20 mg nightly. Stage III chronic kidney disease -Stable, we will continue to monitor with repeat a.m. labs Diabetes mellitus -Glycemic protocol with NovoLog sliding scale. Anemia of chronic disease -Stable at baseline with hemoglobin 8.4. We will continue to monitor with repeat a.m. labs. CODE STATUS: Full code DVT prophylaxis: Heparin Discussed with: Patient and RN Anticipated discharge date: Clinical course to determine Anticipated discharge place: Home A total of 35 minutes was spent on the care of this complex patient more than 50% of the time was spent in counseling and care coordination. I reviewed the documentation as provided by the CRISTIAN above, who is the original author of this note. I agree with the documented assessment and plan, with the following changes: none Objective - Vital Signs Vital signs: Vital Signs Temp 98.4 F 10/31/21 04:05 Pulse 72 10/31/21 04:05 Resp 16 10/31/21 04:05 BP 125/63 10/31/21 04:05 Pulse Ox 98 10/30/21 18:54 FiO2 Intake & Output 10/30/21 10/31/21 10/31/21 18:59 06:59 18:59 Intake Total 900 900 Balance 900 900 Weight 54.885 kg Intake: Intake, IV Titration 900 900 Amount Sodium Chloride 0.9% 1, 900 900 000 ml @ 75 mls/hr IV . [id number] [facility] Rx#:[id number] Other: Voiding Method Indwelling Catheter Indwelling Catheter - Labs CBC & Chem 7: 10/31/21 15:59 10/31/21 07:02 Labs: Abnormal Lab Results - Last 24 Hours (Table) 10/30/21 10/30/21 10/30/21 Range/Units 06:20 11:12 17:10 WBC 14.99 H (4.50-10.00) X 10*3/uL RBC 3.55 L (4.10-5.20) X 10*6/uL Hgb 8.4 L (12.0-15.0) g/dL Hct 27.7 L (37.2-46.3) % MCV 78.0 L (80.0-97.0) fL MCH 23.7 L (27.0-32.0) pg MCHC 30.3 L (32.0-37.0) g/dL RDW 14.6 H (11.5-14.5) % Plt Count 512 H (140-440) X 10*3/uL MPV 9.2 L (9.5-12.2) fL Immature Gran # 0.08 H (0.00-0.04) X 10*3/uL Neutrophils # 11.12 H (1.80-7.70) X 10*3/uL Sodium (137-145) mmol/L BUN (7-17) mg/dL POC Glucose (mg/dL) 124 H 111 H (75-99) mg/dL C-Reactive Protein (<1.0) mg/dL 10/30/21 10/30/21 10/31/21 Range/Units 20:36 20:36 06:59 WBC (4.50-10.00) X 10*3/uL RBC (4.10-5.20) X 10*6/uL Hgb (12.0-15.0) g/dL Hct (37.2-46.3) % MCV (80.0-97.0) fL MCH (27.0-32.0) pg MCHC (32.0-37.0) g/dL RDW (11.5-14.5) % Plt Count (140-440) X 10*3/uL MPV (9.5-12.2) fL Immature Gran # (0.00-0.04) X 10*3/uL Neutrophils # (1.80-7.70) X 10*3/uL Sodium (137-145) mmol/L BUN (7-17) mg/dL POC Glucose (mg/dL) 140 H 140 H 107 H (75-99) mg/dL C-Reactive Protein (<1.0) mg/dL 10/31/21 10/31/21 Range/Units 07:02 07:02 WBC 12.2 H (4.50-10.00) X 10*3/uL RBC 3.12 L (4.10-5.20) X 10*6/uL Hgb 7.7 L D (12.0-15.0) g/dL Hct 24.9 L (37.2-46.3) % MCV (80.0-97.0) fL MCH 24.6 L (27.0-32.0) pg MCHC 30.8 L (32.0-37.0) g/dL RDW (11.5-14.5) % Plt Count 547 H (140-440) X 10*3/uL MPV (9.5-12.2) fL Immature Gran # (0.00-0.04) X 10*3/uL Neutrophils # (1.80-7.70) X 10*3/uL Sodium 136 L (137-145) mmol/L BUN 32 H (7-17) mg/dL POC Glucose (mg/dL) (75-99) mg/dL C-Reactive Protein 5.7 H (<1.0) mg/dL Microbiology - Last 24 Hours (Table) 10/29/21 18:10 Gram Stain - Preliminary Ankle - Left Wound Culture - Preliminary Presumptive Staph aureus Gram Neg Bacilli Strep agalactiae - (group b) 10/29/21 18:15 Blood Culture - Preliminary Blood No Growth after 24 hours 10/29/21 18:00 Blood Culture - Preliminary Blood No Growth after 24 hours
[2021-10-31] MEDS ORDERED: HEPARIN SODIUM,PORCINE 5,000 UNIT/ML 1 ML VIAL ONE (15:40)
[2021-10-31] MEDS ORDERED: LACTULOSE 20 GM/30 ML CUP ONE (15:40)
[2021-10-31] MEDS: SODIUM CHLORIDE 0.9% 1,000 ML IV SCH (16:11)
[2021-10-31 16:36] LABS: HCT 27.6 % (34.0-46.0); HGB 8.3 gm/dL (11.4-16.0); Hypochromasia Moderate; MCH 24.2 pg (25.0-35.0); MCHC 30.2 g/dL (31.0-37.0); MCV 80.1 fL (80.0-100.0); Mean Platelet Volume 6.8; Platelet Count 544 k/uL (150-450); RBC 3.45 m/uL (3.80-5.40); RDW 14.2 % (11.5-15.5); WBC 11.8 k/uL (3.8-10.6)
[2021-10-31 17:08] LABS: Glucose,Whole Blood 102 mg/dL (75-99)
[2021-10-31 19:23] LABS: Erythrocyte Sedimentation Rate 103 mm/hr (0-20)
[2021-10-31 20:58] LABS: Glucose,Whole Blood 141 mg/dL (75-99)
[2021-10-31] MEDS: amLODIPine 10 MG TAB PO SCH (21:10)
[2021-10-31] MEDS: CLOPIDOGREL 75 MG TAB PO SCH (21:11)
[2021-10-31] MEDS: MELATONIN 5 MG TABLET PO SCH (21:11)
[2021-10-31] MEDS: ATORVASTATIN 20 MG TAB PO SCH (21:11)
[2021-10-31 21:50] LABS: Glucose,Whole Blood 138 mg/dL (75-99)
[2021-11-01] MEDS: SODIUM CHLORIDE 0.9% 1,000 ML IV SCH ×2 (00:57→15:03)
[2021-11-01] MEDS: HEPARIN SODIUM,PORCINE/PF 5,000 UNIT/0.5 ML SYRINGE SQ SCH ×4 (00:58→23:44)
[2021-11-01 07:00] LABS: Glucose,Whole Blood 103 mg/dL (75-99)
[2021-11-01] MEDS: INSULIN ASPART (NovoLOG) 100 UNIT/ML VIAL SQ SCH ×4 (07:49→21:28)
[2021-11-01] MEDS: polyethylene glycoL 3350 17 GM POWD.PACK PO SCH ×2 (08:40→11:18)
[2021-11-01] MEDS: LACTULOSE 20 GM/30 ML CUP PO SCH ×2 (08:40→17:19)
[2021-11-01] MEDS: TAMSULOSIN 0.4 MG CAP.ER.24H PO SCH (08:41)
[2021-11-01] MEDS: ERTAPENEM 1 GM in SODIUM CHLORIDE 0.9% 50 ML IVPB SCH (08:41)
[2021-11-01] MEDS: COLLAGENASE 250 UNIT/GM OINTMENT 30 GM TUBE TOPICAL SCH (08:41)
[2021-11-01] MEDS: MAGNESIUM OXIDE 400 MG TAB PO SCH (08:41)
--- NOTE | 2021-11-01 10:54 | P.PN ---
Subjective Progress Note Date: 11/01/21 Patient seen and examined. No complaints. She is essentially been nonambulatory since June Objective - Vital Signs Vital signs: Vital Signs Temp 99.4 F 11/01/21 04:25 Pulse 78 11/01/21 04:25 Resp 16 11/01/21 04:25 BP 123/62 11/01/21 04:25 Pulse Ox 98 11/01/21 04:25 FiO2 Intake & Output 10/31/21 11/01/21 11/01/21 18:59 06:59 18:59 Intake Total 950 825 Output Total 1300 425 Balance -350 400 Intake: Intake, IV Titration 950 825 Amount Ertapenem 1 gm In Sodium 50 Chloride 0.9% 50 ml @ 100 mls/hr IVPB DAILY [facility] Rx #:[id number] Sodium Chloride 0.9% 1, 900 825 000 ml @ 75 mls/hr IV . [id number] [facility] Rx#:[id number] Output: Urine 1300 425 Other: Voiding Method Indwelling Catheter Indwelling Catheter - Exam Gen. is an alert and oriented female in no acute distress. Heart appears regular. Lungs are clear. Abdomen is soft. Left lower extremity wounds are dressed. At the level of the groin, heel and lateral ankle wounds. Cranial nerves II through XII grossly intact without focal deficits - Labs CBC & Chem 7: 10/31/21 15:59 10/31/21 07:02 Labs: Abnormal Lab Results - Last 24 Hours (Table) 10/31/21 10/31/21 10/31/21 Range/Units 07:02 11:38 15:59 WBC 11.8 H (3.8-10.6) k/uL RBC 3.45 L (3.80-5.40) m/uL Hgb 8.3 L (11.4-16.0) gm/dL Hct 27.6 L (34.0-46.0) % MCH 24.2 L (25.0-35.0) pg MCHC 30.2 L (31.0-37.0) g/dL Plt Count 544 H (150-450) k/uL ESR 103 H (0-20) mm/hr POC Glucose (mg/dL) 109 H (75-99) mg/dL 10/31/21 10/31/21 10/31/21 Range/Units 17:06 20:57 21:48 WBC (3.8-10.6) k/uL RBC (3.80-5.40) m/uL Hgb (11.4-16.0) gm/dL Hct (34.0-46.0) % MCH (25.0-35.0) pg MCHC (31.0-37.0) g/dL Plt Count (150-450) k/uL ESR (0-20) mm/hr POC Glucose (mg/dL) 102 H 141 H 138 H (75-99) mg/dL 11/01/21 Range/Units 06:58 WBC (3.8-10.6) k/uL RBC (3.80-5.40) m/uL Hgb (11.4-16.0) gm/dL Hct (34.0-46.0) % MCH (25.0-35.0) pg MCHC (31.0-37.0) g/dL Plt Count (150-450) k/uL ESR (0-20) mm/hr POC Glucose (mg/dL) 103 H (75-99) mg/dL Microbiology - Last 24 Hours (Table) 10/29/21 18:00 Blood Culture - Preliminary Blood No Growth after 48 hours 10/29/21 18:15 Blood Culture - Preliminary Blood No Growth after 48 hours 10/29/21 18:10 Gram Stain - Final Ankle - Left Wound Culture - Final Staphylococcus aureus Klebsiella pneumoniae Strep agalactiae - (group b) Assessment and Plan Assessment: Nonhealing left lower extremity wound Thrombosed left femoral-popliteal bypass with in situ vein History of tobacco abuse Plan: At this time patient not really any further with decisions being made. She was to continue to think about her options. Again reiterated no intervention and palliative care, redo bypass with CryoVein versus above-knee amputation. Nutrition labs appear relatively appropriate with albumin of 3.8
[2021-11-01 11:21] LABS: Glucose,Whole Blood 109 mg/dL (75-99)
--- NOTE | 2021-11-01 15:35 | P.PN ---
Subjective Progress Note Date: 11/01/21 Hospital course: Patient is a very pleasant 70-year-old female with a past medical history of CAD with previous [place], hypertension, hyperlipidemia, stage III chronic kidney disease, diabetes mellitus, status post ORIF of left ankle on 06/14/21 resulting in delayed wound healing and also radiation secondary to patient's severe peripheral arterial occlusive disease, patient has since underwent left femoral popliteal bypass graft and femoral artery angioplasty on 07/29/21 and is now returning to the emergency department secondary to this nonhealing left ankle wound/ulceration. Patient underwent full evaluation in the emergency department and was found to have leukocytosis with WBC count of 15.6, microchromic hypochromic anemia with hemoglobin of 9.7, Renal function consistent with stage III CKD with BUN 42, creatinine 1.33, and GFR 40 (baseline creatinine 1.5). X- ray left ankle showing no focal bone distraction and no signs of osteomyelitis with calcaneal spurring and evidence of previous internal fixation intact. X- ray left foot showing no evidence of osteomyelitis, no fracture and positive for atherosclerotic disease. EKG completed showing normal sinus rhythm at 70 bpm with no noted T-wave or ST abnormalities. Wound cultures obtained and sent to lab for analysis. Patient was started on IV antibiotic Invanz and admitted under our services with consultation to vascular surgery, infectious disease and wound care. Arterial Doppler of left lower extremity revealing bypass graft with no flow. Vascular surgery discussed options with patient including redoing bypass graft with CryoVein versus above-knee amputation or no interventions and palliative care. Wound culture positive for ESBL with Staphylococcus aureus, Klebsiella pneumoniae, and Strep agalactiae. Physical exam: Patient seen and fully evaluated at bedside this morning. She continues to report pain to left lower extremity waxing and waning but currently controlled with current pain medication regimen. Vital signs remained stable and patient remains afebrile. Arterial Doppler of left lower extremity revealing bypass graft with no flow. Vascular surgery did discuss options with patient and patient is currently considering options available to her and what she feels will be best. Wound culture positive for ESBL with Staphylococcus aureus, Klebsiella pneumoniae, and Strep agalactiae. Patient remains on IV antibiotic Invanz at this time. Vital signs reviewed and stable. General: Nontoxic, no distress and appears stated age. Derm: Skin warm and dry, normal coloration for ethnicity. 3 cm ulceration the left lateral ankle as well as ulceration to the dorsal surface of left foot/ankle region, appears to be in healing stages with no surrounding erythema or necrotic tissue. Head: Atraumatic, normocephalic and symmetric. Eyes: EOMs intact, no lid lag, and anicteric sclera Mouth: no lip lesions, mucus membranes moist Cardiovascular: regular rate and rhythm with normal S1S2, systolic murmur, positive posterior tibial pulses bilaterally, and cap refill < 2 seconds. Lungs: Respirations even, regular, and unlabored on room air. Lungs CTA bilaterally, no rhonchi, no rales, no wheezing, and no accessory muscle usage. Abdominal: soft, nontender to palpation, no guarding, no appreciable organomegaly Ext: ROM intact. No gross muscle atrophy, no edema, no contractures Neuro: Speech clear, face symmetrical and CN II-XII grossly intact with no noted focal neuro deficits Psych: Alert and oriented to person, place, time, and situation. Appropriate and pleasant affect. Assessment and Plan of Care: Nonhealing ulcer of the left ankle and dorsal surface of left foot status post ORIF of left ankle on 06/14/21 Severe peripheral arterial occlusive disease status post left femoral popliteal bypass graft and femoral artery angioplasty 07/29/21 -IV antibiotics: Invanz -Wound culture positive for ESBL with Staphylococcus aureus, Klebsiella pneumoniae, and Strep agalactiae. -Blood culture showing no growth after 48 hours -Infectious disease following, appreciate further recommendations. -Wound care was consulted, appreciate further recommendations. -Vascular surgery following, vascular surgery discussed options with patient including redoing bypass graft with CryoVein versus above-knee amputation or no interventions and palliative care. -Symptomatic care and pain management. -Continue daily medication regimen with Plavix 75 mg nightly. Hypertension -Monitor vital signs and continue daily medication regimen with amlodipine. Hyperlipidemia -Continue daily medication regimen with atorvastatin 20 mg nightly. Stage III chronic kidney disease -Stable, we will continue to monitor with repeat a.m. labs Diabetes mellitus -Glycemic protocol with NovoLog sliding scale. Anemia of chronic disease -Stable at baseline with hemoglobin 8.4. We will continue to monitor with repeat a.m. labs. CODE STATUS: Full code DVT prophylaxis: Heparin Discussed with: Patient and RN Anticipated discharge date: Clinical course to determine Anticipated discharge place: Home A total of 35 minutes was spent on the care of this complex patient more than 50% of the time was spent in counseling and care coordination. I reviewed the documentation as provided by the CRISTIAN above, who is the original author of this note. I agree with the documented assessment and plan, with the following changes: None Objective - Vital Signs Vital signs: Vital Signs Temp 99.4 F 11/01/21 04:25 Pulse 78 11/01/21 04:25 Resp 16 11/01/21 04:25 BP 123/62 11/01/21 04:25 Pulse Ox 98 11/01/21 04:25 FiO2 Intake & Output 10/31/21 11/01/21 11/01/21 18:59 06:59 18:59 Intake Total 950 825 Output Total 1300 425 Balance -350 400 Intake: Intake, IV Titration 950 825 Amount Ertapenem 1 gm In Sodium 50 Chloride 0.9% 50 ml @ 100 mls/hr IVPB DAILY [facility] Rx #:[id number] Sodium Chloride 0.9% 1, 900 825 000 ml @ 75 mls/hr IV . [id number] [facility] Rx#:[id number] Output: Urine 1300 425 Other: Voiding Method Indwelling Catheter Indwelling Catheter - Labs CBC & Chem 7: 10/31/21 15:59 10/31/21 07:02 Labs: Abnormal Lab Results - Last 24 Hours (Table) 10/31/21 10/31/21 10/31/21 Range/Units 07:02 11:38 15:59 WBC 11.8 H (3.8-10.6) k/uL RBC 3.45 L (3.80-5.40) m/uL Hgb 8.3 L (11.4-16.0) gm/dL Hct 27.6 L (34.0-46.0) % MCH 24.2 L (25.0-35.0) pg MCHC 30.2 L (31.0-37.0) g/dL Plt Count 544 H (150-450) k/uL ESR 103 H (0-20) mm/hr POC Glucose (mg/dL) 109 H (75-99) mg/dL 10/31/21 10/31/21 10/31/21 Range/Units 17:06 20:57 21:48 WBC (3.8-10.6) k/uL RBC (3.80-5.40) m/uL Hgb (11.4-16.0) gm/dL Hct (34.0-46.0) % MCH (25.0-35.0) pg MCHC (31.0-37.0) g/dL Plt Count (150-450) k/uL ESR (0-20) mm/hr POC Glucose (mg/dL) 102 H 141 H 138 H (75-99) mg/dL 11/01/21 Range/Units 06:58 WBC (3.8-10.6) k/uL RBC (3.80-5.40) m/uL Hgb (11.4-16.0) gm/dL Hct (34.0-46.0) % MCH (25.0-35.0) pg MCHC (31.0-37.0) g/dL Plt Count (150-450) k/uL ESR (0-20) mm/hr POC Glucose (mg/dL) 103 H (75-99) mg/dL Microbiology - Last 24 Hours (Table) 10/29/21 18:00 Blood Culture - Preliminary Blood No Growth after 48 hours 10/29/21 18:15 Blood Culture - Preliminary Blood No Growth after 48 hours 10/29/21 18:10 Gram Stain - Final Ankle - Left Wound Culture - Final Staphylococcus aureus Klebsiella pneumoniae Strep agalactiae - (group b)
[2021-11-01 17:07] LABS: Glucose,Whole Blood 100 mg/dL (75-99)
[2021-11-01] MEDS: HYDROcodone/APAP 5-325MG 1 EACH TAB PO PRN (18:09)
[2021-11-01 20:31] LABS: Glucose,Whole Blood 102 mg/dL (75-99)
[2021-11-01] MEDS: MELATONIN 5 MG TABLET PO SCH (21:31)
[2021-11-01] MEDS: CLOPIDOGREL 75 MG TAB PO SCH (21:31)
[2021-11-01] MEDS: ATORVASTATIN 20 MG TAB PO SCH (21:31)
[2021-11-01] MEDS: amLODIPine 10 MG TAB PO SCH (21:31)
[2021-11-02] MEDS: SODIUM CHLORIDE 0.9% 1,000 ML IV SCH ×2 (05:09→18:10)
[2021-11-02 06:46] LABS: Glucose,Whole Blood 90 mg/dL (75-99)
[2021-11-02] MEDS: INSULIN ASPART (NovoLOG) 100 UNIT/ML VIAL SQ SCH ×4 (08:06→20:49)
[2021-11-02] MEDS: polyethylene glycoL 3350 17 GM POWD.PACK PO SCH (08:32)
[2021-11-02] MEDS: LACTULOSE 20 GM/30 ML CUP PO SCH ×2 (08:32→15:20)
[2021-11-02] MEDS: TAMSULOSIN 0.4 MG CAP.ER.24H PO SCH (08:32)
[2021-11-02] MEDS: MAGNESIUM OXIDE 400 MG TAB PO SCH (08:32)
[2021-11-02] MEDS: ERTAPENEM 1 GM in SODIUM CHLORIDE 0.9% 50 ML IVPB SCH (08:33)
[2021-11-02] MEDS: HEPARIN SODIUM,PORCINE/PF 5,000 UNIT/0.5 ML SYRINGE SQ SCH ×3 (08:33→23:49)
[2021-11-02 11:33] LABS: Glucose,Whole Blood 104 mg/dL (75-99)
--- NOTE | 2021-11-02 14:55 | P.PN ---
Subjective Progress Note Date: 11/02/21 Hospital course: Patient is a very pleasant 70-year-old female with a past medical history of CAD with previous [place], hypertension, hyperlipidemia, stage III chronic kidney disease, diabetes mellitus, status post ORIF of left ankle on 06/14/21 resulting in delayed wound healing and also radiation secondary to patient's severe peripheral arterial occlusive disease, patient has since underwent left femoral popliteal bypass graft and femoral artery angioplasty on 07/29/21 and is now returning to the emergency department secondary to this nonhealing left ankle wound/ulceration. Patient underwent full evaluation in the emergency department and was found to have leukocytosis with WBC count of 15.6, microchromic hypochromic anemia with hemoglobin of 9.7, Renal function consistent with stage III CKD with BUN 42, creatinine 1.33, and GFR 40 (baseline creatinine 1.5). X- ray left ankle showing no focal bone distraction and no signs of osteomyelitis with calcaneal spurring and evidence of previous internal fixation intact. X- ray left foot showing no evidence of osteomyelitis, no fracture and positive for atherosclerotic disease. EKG completed showing normal sinus rhythm at 70 bpm with no noted T-wave or ST abnormalities. Wound cultures obtained and sent to lab for analysis. Patient was started on IV antibiotic Invanz and admitted under our services with consultation to vascular surgery, infectious disease and wound care. Arterial Doppler of left lower extremity revealing bypass graft with no flow. Vascular surgery discussed options with patient including redoing bypass graft with CryoVein versus above-knee amputation or no interventions and palliative care. Wound culture positive for ESBL with Staphylococcus aureus, Klebsiella pneumoniae, and Strep agalactiae. Physical exam: Patient seen and fully evaluated at bedside this morning. She currently reports left lower extremity pain is controlled at this time, stating "right now it's nonexistent." She remains on IV antibiotic Invanz for treatment of ESBL with Staphylococcus aureus, Klebsiella pneumoniae, and Strep agalactiae infected wound/ulcer. Infectious disease, wound care, and vascular surgery following. Patient denies having any other complaints at this time including headache, lightheadedness, dizziness, chest pain, palpitations, shortness of breath. Vital signs reviewed and stable. General: Nontoxic, no distress and appears stated age. Derm: Skin warm and dry, normal coloration for ethnicity. 3 cm ulceration the left lateral ankle as well as ulceration to the dorsal surface of left foot/ankle region, appears to be in healing stages with no surrounding erythema or necrotic tissue. Head: Atraumatic, normocephalic and symmetric. Eyes: EOMs intact, no lid lag, and anicteric sclera Mouth: no lip lesions, mucus membranes moist Cardiovascular: regular rate and rhythm with normal S1S2, systolic murmur, positive posterior tibial pulses bilaterally, and cap refill < 2 seconds. Lungs: Respirations even, regular, and unlabored on room air. Lungs CTA bilaterally, no rhonchi, no rales, no wheezing, and no accessory muscle usage. Abdominal: soft, nontender to palpation, no guarding, no appreciable organomegaly Ext: ROM intact. No gross muscle atrophy, no edema, no contractures Neuro: Speech clear, face symmetrical and CN II-XII grossly intact with no noted focal neuro deficits Psych: Alert and oriented to person, place, time, and situation. Appropriate and pleasant affect. Assessment and Plan of Care: Nonhealing ulcer of the left ankle and dorsal surface of left foot status post ORIF of left ankle on 06/14/21 Severe peripheral arterial occlusive disease status post left femoral popliteal bypass graft and femoral artery angioplasty 07/29/21 -IV antibiotics: Invanz -Wound culture positive for ESBL with Staphylococcus aureus, Klebsiella pneumoniae, and Strep agalactiae. -Blood culture showing no growth after 72 hours -Infectious disease following, appreciate further recommendations. -Wound care following. -Vascular surgery following, vascular surgery discussed options with patient including redoing bypass graft with CryoVein versus above-knee amputation or no interventions and palliative care. -Symptomatic care and pain management. -Continue daily medication regimen with Plavix 75 mg nightly. Hypertension -Monitor vital signs and continue daily medication regimen with amlodipine. Hyperlipidemia -Continue daily medication regimen with atorvastatin 20 mg nightly. Stage III chronic kidney disease -Stable, we will continue to monitor with repeat a.m. labs Diabetes mellitus -Glycemic protocol with NovoLog sliding scale. Anemia of chronic disease -Stable at baseline with hemoglobin 8.4. We will continue to monitor with repeat a.m. labs. CODE STATUS: Full code DVT prophylaxis: Heparin Discussed with: Patient and RN Anticipated discharge date: Clinical course to determine Anticipated discharge place: Home A total of 33 minutes was spent on the care of this complex patient more than 50% of the time was spent in counseling and care coordination. I reviewed the documentation as provided by the CRISTIAN above, who is the original author of this note. I agree with the documented assessment and plan, with the following changes: None Objective - Vital Signs Vital signs: Vital Signs Temp 97.9 F 11/02/21 07:24 Pulse 68 11/02/21 07:24 Resp 17 11/02/21 07:24 BP 125/70 11/02/21 07:24 Pulse Ox 97 11/02/21 07:24 FiO2 Intake & Output 11/01/21 11/02/21 11/02/21 18:59 06:59 18:59 Intake Total 1390 Output Total 1350 900 Balance 40 -900 Weight 54.885 kg Intake: Intake, IV Titration 850 Amount Ertapenem 1 gm In Sodium 100 Chloride 0.9% 50 ml @ 100 mls/hr IVPB DAILY [facility] Rx #:[id number] Sodium Chloride 0.9% 1, 750 000 ml @ 75 mls/hr IV . [id number] [facility] Rx#:[id number] Oral 540 Output: Urine 1350 900 Other: Voiding Method Indwelling Catheter # Voids 1 # Bowel Movements 1 - Labs CBC & Chem 7: 10/31/21 15:59 10/31/21 07:02 Labs: Abnormal Lab Results - Last 24 Hours (Table) 11/01/21 11/01/21 11/01/21 Range/Units 11:19 17:05 20:30 POC Glucose (mg/dL) 109 H 100 H 102 H (75-99) mg/dL Microbiology - Last 24 Hours (Table) 10/29/21 18:15 Blood Culture - Preliminary Blood No Growth after 72 hours 10/29/21 18:00 Blood Culture - Preliminary Blood No Growth after 72 hours 10/29/21 18:10 Gram Stain - Final Ankle - Left Wound Culture - Final Staphylococcus aureus Klebsiella pneumoniae Strep agalactiae - (group b)
[2021-11-02] MEDS: COLLAGENASE 250 UNIT/GM OINTMENT 30 GM TUBE TOPICAL SCH (15:20)
[2021-11-02 16:32] LABS: Glucose,Whole Blood 102 mg/dL (75-99)
[2021-11-02 20:21] LABS: Glucose,Whole Blood 105 mg/dL (75-99)
[2021-11-02] MEDS: MELATONIN 5 MG TABLET PO SCH (20:50)
[2021-11-02] MEDS: ATORVASTATIN 20 MG TAB PO SCH (20:50)
[2021-11-02] MEDS: amLODIPine 10 MG TAB PO SCH (20:50)
[2021-11-02] MEDS: CLOPIDOGREL 75 MG TAB PO SCH (20:50)
--- NOTE | 2021-11-02 20:52 | P.PN ---
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 On today's evaluation that is 10/31/2021 the patient is afebrile, the patient is breathing comfortably denies any worsening pain to the left foot and ankle area no chest pain shortness of breath or cough no abdominal pain or diarrhea Objective - Vital Signs Vital signs: Vital Signs Temp 98.4 F 10/31/21 04:05 Pulse 72 10/31/21 04:05 Resp 16 10/31/21 04:05 BP 125/63 10/31/21 04:05 Pulse Ox 98 10/30/21 18:54 FiO2 Intake & Output 10/30/21 10/31/21 10/31/21 18:59 06:59 18:59 Intake Total 900 900 Output Total 1300 Balance 900 900 -1300 Weight 54.885 kg Intake: Intake, IV Titration 900 900 Amount Sodium Chloride 0.9% 1, 900 900 000 ml @ 75 mls/hr IV . [id number] [facility] Rx#:[id number] Output: Urine 1300 Other: Voiding Method Indwelling Catheter Indwelling Catheter - Exam GENERAL DESCRIPTION: An elderly female lying in bed in no distress RESPIRATORY SYSTEM: Unlabored breathing , decreased breath sounds at bases HEART: S1 S2 regular rate and rhythm , ABDOMEN: Soft , no tenderness EXTREMITIES: Left foot and ankle area did have multiple wound with some necrotic changes and no redness - Labs CBC & Chem 7: 10/31/21 15:59 10/31/21 07:02 Labs: Abnormal Lab Results - Last 24 Hours (Table) 10/30/21 10/30/21 10/30/21 Range/Units 11:12 17:10 20:36 WBC (3.8-10.6) k/uL RBC (3.80-5.40) m/uL Hgb (11.4-16.0) gm/dL Hct (34.0-46.0) % MCH (25.0-35.0) pg MCHC (31.0-37.0) g/dL Plt Count (150-450) k/uL Sodium (137-145) mmol/L BUN (7-17) mg/dL POC Glucose (mg/dL) 124 H 111 H 140 H (75-99) mg/dL C-Reactive Protein (<1.0) mg/dL 10/30/21 10/31/21 10/31/21 Range/Units 20:36 06:59 07:02 WBC 12.2 H (3.8-10.6) k/uL RBC 3.12 L (3.80-5.40) m/uL Hgb 7.7 L D (11.4-16.0) gm/dL Hct 24.9 L (34.0-46.0) % MCH 24.6 L (25.0-35.0) pg MCHC 30.8 L (31.0-37.0) g/dL Plt Count 547 H (150-450) k/uL Sodium (137-145) mmol/L BUN (7-17) mg/dL POC Glucose (mg/dL) 140 H 107 H (75-99) mg/dL C-Reactive Protein (<1.0) mg/dL 10/31/21 Range/Units 07:02 WBC (3.8-10.6) k/uL RBC (3.80-5.40) m/uL Hgb (11.4-16.0) gm/dL Hct (34.0-46.0) % MCH (25.0-35.0) pg MCHC (31.0-37.0) g/dL Plt Count (150-450) k/uL Sodium 136 L (137-145) mmol/L BUN 32 H (7-17) mg/dL POC Glucose (mg/dL) (75-99) mg/dL C-Reactive Protein 5.7 H (<1.0) mg/dL Microbiology - Last 24 Hours (Table) 10/29/21 18:10 Gram Stain - Preliminary Ankle - Left Wound Culture - Preliminary Presumptive Staph aureus Gram Neg Bacilli Strep agalactiae - (group b) 10/29/21 18:15 Blood Culture - Preliminary Blood No Growth after 24 hours 10/29/21 18:00 Blood Culture - Preliminary Blood No Growth after 24 hours Assessment and Plan (1) Wound infection after surgery Current Visit: No Status: Acute Code(s): T81.49XA - INFECTION FOLLOWING A PROCEDURE, OTHER SURGICAL SITE, INIT SNOMED Code(s): 59561641 Plan: 1patient with a chronic nonhealing wound to the left ankle area in this patient did have multiple surgeries also left femoropopliteal bypass surgery now presented to hospital with nonhealing wound has been there for couple of months now patient did have elevated white count admission however no fever he did have multiple wounds to the left heel left groin area with some necrotic tissue no significant surrounding redness underlying infection less likely but not entirely excluded, patient has previously grown ESBL Klebsiella in the urine . 2local cultures are growing ESBL Klebsiella and staph aureus. 3 we will continue the patient on Invanz 1 g daily 4continue local wound care per wound care team. Time with Patient: Less than 30
--- NOTE | 2021-11-02 20:54 | P.PN ---
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 On today's evaluation that is 11/01/2021 the patient continues to be afebrile, the patient is breathing comfortably on room air, the patient denies any worsening pain to the left foot and ankle area no chest pain shortness of breath or cough no abdominal pain or diarrhea Objective - Vital Signs Vital signs: Vital Signs Temp 98.1 F 11/01/21 12:08 Pulse 72 11/01/21 12:08 Resp 13 11/01/21 12:08 BP 127/70 11/01/21 12:08 Pulse Ox 98 11/01/21 12:08 FiO2 Intake & Output 10/31/21 11/01/21 11/01/21 18:59 06:59 18:59 Intake Total 950 825 Output Total 1300 425 700 Balance -350 400 -700 Weight 54.885 kg Intake: Intake, IV Titration 950 825 Amount Ertapenem 1 gm In Sodium 50 Chloride 0.9% 50 ml @ 100 mls/hr IVPB DAILY [facility] Rx #:[id number] Sodium Chloride 0.9% 1, 900 825 000 ml @ 75 mls/hr IV . [id number] [facility] Rx#:[id number] Output: Urine 1300 425 700 Other: Voiding Method Indwelling Catheter Indwelling Catheter Indwelling Catheter # Bowel Movements 1 - Exam GENERAL DESCRIPTION: An elderly female lying in bed in no distress RESPIRATORY SYSTEM: Unlabored breathing , decreased breath sounds at bases HEART: S1 S2 regular rate and rhythm , ABDOMEN: Soft , no tenderness EXTREMITIES: Left foot and ankle area did have multiple wound with some necrotic changes and no redness - Labs CBC & Chem 7: 10/31/21 15:59 10/31/21 07:02 Labs: Abnormal Lab Results - Last 24 Hours (Table) 10/31/21 10/31/21 10/31/21 Range/Units 07:02 11:38 15:59 WBC 11.8 H (3.8-10.6) k/uL RBC 3.45 L (3.80-5.40) m/uL Hgb 8.3 L (11.4-16.0) gm/dL Hct 27.6 L (34.0-46.0) % MCH 24.2 L (25.0-35.0) pg MCHC 30.2 L (31.0-37.0) g/dL Plt Count 544 H (150-450) k/uL ESR 103 H (0-20) mm/hr POC Glucose (mg/dL) 109 H (75-99) mg/dL 10/31/21 10/31/21 10/31/21 Range/Units 17:06 20:57 21:48 WBC (3.8-10.6) k/uL RBC (3.80-5.40) m/uL Hgb (11.4-16.0) gm/dL Hct (34.0-46.0) % MCH (25.0-35.0) pg MCHC (31.0-37.0) g/dL Plt Count (150-450) k/uL ESR (0-20) mm/hr POC Glucose (mg/dL) 102 H 141 H 138 H (75-99) mg/dL 11/01/21 11/01/21 Range/Units 06:58 11:19 WBC (3.8-10.6) k/uL RBC (3.80-5.40) m/uL Hgb (11.4-16.0) gm/dL Hct (34.0-46.0) % MCH (25.0-35.0) pg MCHC (31.0-37.0) g/dL Plt Count (150-450) k/uL ESR (0-20) mm/hr POC Glucose (mg/dL) 103 H 109 H (75-99) mg/dL Microbiology - Last 24 Hours (Table) 10/29/21 18:00 Blood Culture - Preliminary Blood No Growth after 48 hours 10/29/21 18:15 Blood Culture - Preliminary Blood No Growth after 48 hours 10/29/21 18:10 Gram Stain - Final Ankle - Left Wound Culture - Final Staphylococcus aureus Klebsiella pneumoniae Strep agalactiae - (group b) Assessment and Plan (1) Wound infection after surgery Current Visit: No Status: Acute Code(s): T81.49XA - INFECTION FOLLOWING A PROCEDURE, OTHER SURGICAL SITE, INIT SNOMED Code(s): 53542829 Plan: 1patient with a chronic nonhealing wound to the left ankle area in this patient did have multiple surgeries also left femoropopliteal bypass surgery now presented to hospital with nonhealing wound has been there for couple of months now patient did have elevated white count admission however no fever he did have multiple wounds to the left heel left groin area with some necrotic tissue no significant surrounding redness underlying infection less likely but not entirely excluded 2local cultures are growing ESBL Klebsiella and MSSA. 3 patient will continue the patient on Invanz 1 g daily 4vascular surgery is following the patient and is recommending possible amputation versus palliative care Time with Patient: Less than 30
--- NOTE | 2021-11-02 20:55 | P.PN ---
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 On today's evaluation that is 11/02/2021 the patient is afebrile, the patient is breathing comfortably on room air, the patient pain to the left foot and ankle area is currently controlled, the patient denies chest pain shortness of breath or cough no abdominal pain or diarrhea Objective - Vital Signs Vital signs: Vital Signs Temp 97.8 F 11/02/21 14:36 Pulse 77 11/02/21 14:36 Resp 18 11/02/21 14:36 BP 133/67 11/02/21 14:36 Pulse Ox 97 11/02/21 14:36 FiO2 Intake & Output 11/02/21 11/02/21 11/03/21 06:59 18:59 06:59 Output Total 900 400 Balance -900 -400 Output: Urine 900 400 Other: # Bowel Movements 1 - Exam GENERAL DESCRIPTION: An elderly female lying in bed in no distress RESPIRATORY SYSTEM: Unlabored breathing , decreased breath sounds at bases HEART: S1 S2 regular rate and rhythm , ABDOMEN: Soft , no tenderness EXTREMITIES: Left foot and ankle area did have multiple wound with some necrotic changes and no redness - Labs CBC & Chem 7: 10/31/21 15:59 10/31/21 07:02 Labs: Abnormal Lab Results - Last 24 Hours (Table) 11/01/21 11/02/21 11/02/21 Range/Units 20:30 11:31 16:29 POC Glucose (mg/dL) 102 H 104 H 102 H (75-99) mg/dL Microbiology - Last 24 Hours (Table) 10/29/21 18:15 Blood Culture - Preliminary Blood No Growth after 72 hours 10/29/21 18:00 Blood Culture - Preliminary Blood No Growth after 72 hours Assessment and Plan (1) Wound infection after surgery Current Visit: No Status: Acute Code(s): T81.49XA - INFECTION FOLLOWING A PROCEDURE, OTHER SURGICAL SITE, INIT SNOMED Code(s): 15371891 Plan: 1patient with a chronic nonhealing wound to the left ankle area in this patient did have multiple surgeries also left femoropopliteal bypass surgery now presented to hospital with nonhealing wound has been there for couple of months now patient did have elevated white count admission however no fever he did have multiple wounds to the left heel left groin area with some necrotic tissue no significant surrounding redness underlying infection less likely but not entirely excluded 2local cultures are growing ESBL Klebsiella and MSSA and strep. 3 patient is covered with Invanz 1 g daily which will be continued 4vascular surgery is following the patient and is recommending possible amputation versus palliative care, awaiting final decision Time with Patient: Less than 30
--- NOTE | 2021-11-02 21:42 | P.PN ---
Subjective Progress Note Date: 11/02/21 Principal diagnosis: left lower extremity wounds Complaining of pain at the lateral aspect of left lower leg. Denies any fevers, chills, chest pain or shortness of breath. Objective - Vital Signs Vital signs: Vital Signs Temp 98.9 F 11/02/21 20:00 Pulse 97 11/02/21 20:00 Resp 16 11/02/21 20:00 BP 144/73 11/02/21 20:00 Pulse Ox 97 11/02/21 20:00 FiO2 Intake & Output 11/02/21 11/02/21 11/03/21 06:59 18:59 06:59 Output Total 900 400 Balance -900 -400 Output: Urine 900 400 Other: # Bowel Movements 1 - Exam left lower extremity wounds at the medial aspect above the ankle which appears to be healing. The dorsal aspect of the foot has a 2-3cm wound with fibrinous tissue, without purulent drainage. The lateral lower extremity wound demonstrates purulent drainage and exposed hardware. Heel wound noted - Constitutional General appearance: Present: cooperative - Respiratory Respiratory: bilateral: CTA - Cardiovascular Rhythm: regular - Gastrointestinal General gastrointestinal: Absent: distended - Labs CBC & Chem 7: 10/31/21 15:59 10/31/21 07:02 Labs: Abnormal Lab Results - Last 24 Hours (Table) 11/02/21 11/02/21 11/02/21 Range/Units 11:31 16:29 20:19 POC Glucose (mg/dL) 104 H 102 H 105 H (75-99) mg/dL Microbiology - Last 24 Hours (Table) 10/29/21 18:15 Blood Culture - Preliminary Blood No Growth after 96 hours 10/29/21 18:00 Blood Culture - Preliminary Blood No Growth after 96 hours Assessment and Plan Assessment: 1. Chronic left lower extremity non healing wounds 2. PAD, history of left lower extremity bypass 3. History of left ankle surgery Plan: Discussed with patient recommendation of a left above knee amputation due to isabel dware exposure and purulent drainage. I agree with assessment and prior discussions of possible hospice as well. Patient states she will think about options over the weekend and have an answer after Thursday. Will reassess at that time
[2021-11-03 06:50] LABS: Glucose,Whole Blood 92 mg/dL (75-99)
[2021-11-03] MEDS: LACTULOSE 20 GM/30 ML CUP PO SCH ×2 (08:26→15:36)
[2021-11-03] MEDS: polyethylene glycoL 3350 17 GM POWD.PACK PO SCH (08:26)
[2021-11-03] MEDS: MAGNESIUM OXIDE 400 MG TAB PO SCH (08:27)
[2021-11-03] MEDS: TAMSULOSIN 0.4 MG CAP.ER.24H PO SCH (08:27)
[2021-11-03] MEDS: ERTAPENEM 1 GM in SODIUM CHLORIDE 0.9% 50 ML IVPB SCH (08:27)
[2021-11-03] MEDS: SODIUM CHLORIDE 0.9% 1,000 ML IV SCH ×2 (08:27→21:24)
[2021-11-03] MEDS: HEPARIN SODIUM,PORCINE/PF 5,000 UNIT/0.5 ML SYRINGE SQ SCH ×3 (08:27→23:33)
[2021-11-03] MEDS: INSULIN ASPART (NovoLOG) 100 UNIT/ML VIAL SQ SCH ×4 (08:30→21:22)
[2021-11-03 09:17] LABS: ALT 10 U/L (8-44); AST 15 U/L (13-35); Albumin 2.7 g/dL (3.8-4.9); Albumin/Globulin Ratio 0.87 (1.60-3.17); Alkaline Phosphatase 103 U/L (41-126); BUN/Creat Ratio 28.76 Ratio (12.00-20.00); Blood Urea Nitrogen 19.7 mg/dL (9.0-27.0); Calcium 8.7 mg/dL (8.7-10.3); Carbon Dioxide 21.8 mmol/L (20.0-27.5); Chloride 105 mmol/L (96-109); Globulin 3.1 g/dL (1.6-3.3); Glucose 91 mg/dL (70-110); Magnesium 1.9 mg/dL (1.5-2.4); Non-African American GFR(CKD) 87.2 (60.0-200.0); Potassium 3.5 mmol/L (3.5-5.5); Sodium 141 mmol/L (135-145); Total Bilirubin <0.15 mg/dL (0.30-1.20); Total Protein 5.8 g/dL (6.2-8.2)
[2021-11-03 09:35] LABS: HCT 23.9 % (37.2-46.3); HGB 7.4 g/dL (12.0-15.0); MCH 24.4 pg (27.0-32.0); MCV 78.9 fL (80.0-97.0); Mean Platelet Volume 9.1 fL (9.5-12.2); NRBC Per 100 WBC 0 /100 WBCS (0.0-0.0); Platelet Count 494 X 10*3/uL (140-440); RBC 3.03 X 10*6/uL (4.10-5.20); RDW 14.6 % (11.5-14.5); WBC 9.05 X 10*3/uL (4.50-10.00)
[2021-11-03 11:36] LABS: Glucose,Whole Blood 92 mg/dL (75-99)
[2021-11-03] MEDS: COLLAGENASE 250 UNIT/GM OINTMENT 30 GM TUBE TOPICAL SCH (14:03)
--- NOTE | 2021-11-03 16:06 | P.PN ---
Subjective Progress Note Date: 11/03/21 Hospital course: Patient is a very pleasant 70-year-old female with a past medical history of CAD with previous DC, hypertension, hyperlipidemia, stage III chronic kidney disease, diabetes mellitus, status post ORIF of left ankle on 06/14/21 resulting in delayed wound healing and also radiation secondary to patient's severe peripheral arterial occlusive disease, patient has since underwent left femoral popliteal bypass graft and femoral artery angioplasty on 07/29/21 and is now returning to the emergency department secondary to this nonhealing left ankle wound/ulceration. Patient underwent full evaluation in the emergency department and was found to have leukocytosis with WBC count of 15.6, microchromic hypochromic anemia with hemoglobin of 9.7, Renal function consistent with stage III CKD with BUN 42, creatinine 1.33, and GFR 40 (baseline creatinine 1.5). X- ray left ankle showing no focal bone distraction and no signs of osteomyelitis with calcaneal spurring and evidence of previous internal fixation intact. X- ray left foot showing no evidence of osteomyelitis, no fracture and positive for atherosclerotic disease. EKG completed showing normal sinus rhythm at 70 bpm with no noted T-wave or ST abnormalities. Wound cultures obtained and sent to lab for analysis. Patient was started on IV antibiotic Invanz and admitted under our services with consultation to vascular surgery, infectious disease and wound care. Arterial Doppler of left lower extremity revealing bypass graft with no flow. Vascular surgery discussed options with patient including redoing bypass graft with CryoVein versus above-knee amputation or no interventions and palliative care. Wound culture positive for ESBL with Staphylococcus aureus, Klebsiella pneumoniae, and Strep agalactiae. Physical exam: Patient seen and fully evaluated at bedside this morning. Patient resting comfortably this morning. She reports pain to left lower extremity remains controlled. She denies having any questions, concerns, or needs at this time. patient appeared to be slightly down, flat affect. Patient stating she would like to be left alone so she can get some sleep. It appears vascular surgery had discussion with patient last night that they are recommending an above-knee amputation of left leg secondary to hardware exposure and purulent drainage. Patient states that she needs time to think about this and does not know what [facility] wants to do right now. Patient to be given the time and space requested to think about her options at this time. At this time, patient to continue IV antibiotic Invanz for treatment of ESBL with Staphylococcus aureus, Klebsiella pneumoniae, and Strep agalactiae infected wound/ulcer. Vital signs reviewed and stable. General: Nontoxic, no distress and appears stated age. Derm: Skin warm and dry, normal coloration for ethnicity. 3 cm ulceration the left lateral ankle as well as ulceration to the dorsal surface of left foot/ankle region, appears to be in healing stages with no surrounding erythema or necrotic tissue. Head: Atraumatic, normocephalic and symmetric. Eyes: EOMs intact, no lid lag, and anicteric sclera Mouth: no lip lesions, mucus membranes moist Cardiovascular: regular rate and rhythm with normal S1S2, systolic murmur, positive posterior tibial pulses bilaterally, and cap refill < 2 seconds. Lungs: Respirations even, regular, and unlabored on room air. Lungs CTA bilaterally, no rhonchi, no rales, no wheezing, and no accessory muscle usage. Abdominal: soft, nontender to palpation, no guarding, no appreciable organomegaly Ext: ROM intact. No gross muscle atrophy, no edema, no contractures Neuro: Speech clear, face symmetrical and CN II-XII grossly intact with no noted focal neuro deficits Psych: Alert and oriented to person, place, time, and situation. Appropriate and pleasant affect. Assessment and Plan of Care: Nonhealing ulcer of the left ankle and dorsal surface of left foot status post ORIF of left ankle on 06/14/21 Severe peripheral arterial occlusive disease status post left femoral popliteal bypass graft and femoral artery angioplasty 07/29/21 -IV antibiotics: Invanz -Wound culture positive for ESBL with Staphylococcus aureus, Klebsiella pneumoniae, and Strep agalactiae. -Blood culture showing no growth after 72 hours -Infectious disease following, appreciate further recommendations. -Wound care following. -Vascular surgery following, vascular surgery discussed options with patient including redoing bypass graft with CryoVein versus above-knee amputation or no interventions and palliative/hospice care. -Symptomatic care and pain management. -Continue daily medication regimen with Plavix 75 mg nightly. Hypertension -Monitor vital signs and continue daily medication regimen with amlodipine. Hyperlipidemia -Continue daily medication regimen with atorvastatin 20 mg nightly. Stage III chronic kidney disease -Stable, we will continue to monitor with repeat a.m. labs Diabetes mellitus -Glycemic protocol with NovoLog sliding scale. Anemia of chronic disease -Stable at baseline with hemoglobin 8.4. We will continue to monitor with repeat a.m. labs. CODE STATUS: Full code DVT prophylaxis: Heparin Discussed with: Patient and RN Anticipated discharge date: Clinical course to determine Anticipated discharge place: Home A total of 33 minutes was spent on the care of this complex patient more than 50% of the time was spent in counseling and care coordination. I reviewed the documentation as provided by the CRISTIAN above, who is the original a uthor of this note. I agree with the documented assessment and plan, with the following changes: None Objective - Vital Signs Vital signs: Vital Signs Temp 98 F 11/03/21 07:33 Pulse 78 11/03/21 07:33 Resp 18 11/03/21 07:33 BP 134/67 11/03/21 07:33 Pulse Ox 96 11/03/21 07:33 FiO2 Intake & Output 11/02/21 11/03/21 11/03/21 18:59 06:59 18:59 Output Total 400 1400 Balance -400 -1400 Output: Urine 400 1400 Other: # Bowel Movements 1 - Labs CBC & Chem 7: 11/03/21 05:29 11/03/21 05:29 Labs: Abnormal Lab Results - Last 24 Hours (Table) 11/02/21 11/02/21 11/02/21 Range/Units 11:31 16:29 20:19 POC Glucose (mg/dL) 104 H 102 H 105 H (75-99) mg/dL Microbiology - Last 24 Hours (Table) 10/29/21 18:15 Blood Culture - Preliminary Blood No Growth after 96 hours 10/29/21 18:00 Blood Culture - Preliminary Blood No Growth after 96 hours
[2021-11-03 16:42] LABS: Glucose,Whole Blood 108 mg/dL (75-99)
[2021-11-03 20:19] LABS: Glucose,Whole Blood 107 mg/dL (75-99)
[2021-11-03] MEDS: ATORVASTATIN 20 MG TAB PO SCH (21:21)
[2021-11-03] MEDS: CLOPIDOGREL 75 MG TAB PO SCH (21:21)
[2021-11-03] MEDS: amLODIPine 10 MG TAB PO SCH (21:22)
[2021-11-03] MEDS: MELATONIN 5 MG TABLET PO SCH (21:22)
[2021-11-04 07:19] LABS: Glucose,Whole Blood 93 mg/dL (75-99)
[2021-11-04] MEDS: INSULIN ASPART (NovoLOG) 100 UNIT/ML VIAL SQ SCH ×4 (08:03→20:06)
[2021-11-04] MEDS: ERTAPENEM 1 GM in SODIUM CHLORIDE 0.9% 50 ML IVPB SCH (08:36)
[2021-11-04] MEDS: polyethylene glycoL 3350 17 GM POWD.PACK PO SCH (08:38)
[2021-11-04] MEDS: LACTULOSE 20 GM/30 ML CUP PO SCH ×2 (08:38→17:11)
[2021-11-04] MEDS: MAGNESIUM OXIDE 400 MG TAB PO SCH (08:38)
[2021-11-04] MEDS: TAMSULOSIN 0.4 MG CAP.ER.24H PO SCH (08:38)
[2021-11-04] MEDS: SODIUM CHLORIDE 0.9% 1,000 ML IV SCH ×2 (08:39→22:18)
[2021-11-04] MEDS: COLLAGENASE 250 UNIT/GM OINTMENT 30 GM TUBE TOPICAL SCH (08:39)
[2021-11-04] MEDS: HEPARIN SODIUM,PORCINE/PF 5,000 UNIT/0.5 ML SYRINGE SQ SCH ×3 (08:46→23:00)
[2021-11-04 11:29] LABS: Glucose,Whole Blood 91 mg/dL (75-99)
--- NOTE | 2021-11-04 13:41 | P.PN ---
Subjective Progress Note Date: 11/04/21 Hospital course: Patient is a very pleasant 70-year-old female with a past medical history of CAD with previous [place], hypertension, hyperlipidemia, stage III chronic kidney disease, diabetes mellitus, status post ORIF of left ankle on 06/14/21 resulting in delayed wound healing and also radiation secondary to patient's severe peripheral arterial occlusive disease, patient has since underwent left femoral popliteal bypass graft and femoral artery angioplasty on 07/29/21 and is now returning to the emergency department secondary to this nonhealing left ankle wound/ulceration. Patient underwent full evaluation in the emergency department and was found to have leukocytosis with WBC count of 15.6, microchromic hypochromic anemia with hemoglobin of 9.7, Renal function consistent with stage III CKD with BUN 42, creatinine 1.33, and GFR 40 (baseline creatinine 1.5). X- ray left ankle showing no focal bone distraction and no signs of osteomyelitis with calcaneal spurring and evidence of previous internal fixation intact. X- ray left foot showing no evidence of osteomyelitis, no fracture and positive for atherosclerotic disease. EKG completed showing normal sinus rhythm at 70 bpm with no noted T-wave or ST abnormalities. Wound cultures obtained and sent to lab for analysis. Patient was started on IV antibiotic Invanz and admitted under our services with consultation to vascular surgery, infectious disease and wound care. Arterial Doppler of left lower extremity revealing bypass graft with no flow. Vascular surgery discussed options with patient including redoing bypass graft with CryoVein versus above-knee amputation or no interventions and palliative care. Wound culture positive for ESBL with Staphylococcus aureus, Klebsiella pneumoniae, and Strep agalactiae. Physical exam: Patient seen and fully evaluated at bedside this morning. She was visiting with her sister. Patient and her sister were discussing options for surgery and awaiting to talk further with vascular surgery team. Patient currently reports pain is controlled. She continues to deny having any other complaints at this time including headache, lightheadedness, dizziness, chest pain, palpitations, abdominal pain, nausea, or vomiting. Patient reports she continues to have an okay appetite. Vital signs are unremarkable. Patient to continue IV antibiotic Invanz for treatment of ESBL with Staphylococcus aureus, Klebsiella pneumoniae, and Strep agalactiae infected wound/ulcer. Vital signs reviewed and stable. General: Nontoxic, no distress and appears stated age. Derm: Skin warm and dry, normal coloration for ethnicity. 3 cm ulceration the left lateral ankle as well as ulceration to the dorsal surface of left fo ot/ankle region, appears to be in healing stages with no surrounding erythema or necrotic tissue. Head: Atraumatic, normocephalic and symmetric. Eyes: EOMs intact, no lid lag, and anicteric sclera Mouth: no lip lesions, mucus membranes moist Cardiovascular: regular rate and rhythm with normal S1S2, systolic murmur, positive posterior tibial pulses bilaterally, and cap refill < 2 seconds. Lungs: Respirations even, regular, and unlabored on room air. Lungs CTA bilaterally, no rhonchi, no rales, no wheezing, and no accessory muscle usage. Abdominal: soft, nontender to palpation, no guarding, no appreciable organomegaly Ext: ROM intact. No gross muscle atrophy, no edema, no contractures Neuro: Speech clear, face symmetrical and CN II-XII grossly intact with no noted focal neuro deficits Psych: Alert and oriented to person, place, time, and situation. Appropriate and pleasant affect. Assessment and Plan of Care: Nonhealing ulcer of the left ankle and dorsal surface of left foot status post ORIF of left ankle on 06/14/21 Severe peripheral arterial occlusive disease status post left femoral popliteal bypass graft and femoral artery angioplasty 07/29/21 -IV antibiotics: Invanz -Wound culture positive for ESBL with Staphylococcus aureus, Klebsiella pneumoniae, and Strep agalactiae. -Blood culture showing no growth -Infectious disease following, appreciate further recommendations. -Wound care following. -Vascular surgery following, vascular surgery discussed options with patient including redoing bypass graft with CryoVein versus above-knee amputation or no interventions and palliative/hospice care. -Symptomatic care and pain management. -Continue daily medication regimen with Plavix 75 mg nightly. Hypertension -Monitor vital signs and continue daily medication regimen with amlodipine. Hyperlipidemia -Continue daily medication regimen with atorvastatin 20 mg nightly. Stage III chronic kidney disease -Stable, we will continue to monitor with repeat a.m. labs Diabetes mellitus -Glycemic protocol with NovoLog sliding scale. Anemia of chronic disease -Stable at baseline with hemoglobin 7.4. We will continue to monitor with repeat a.m. labs. CODE STATUS: Full code DVT prophylaxis: Heparin Discussed with: Patient, patient sister and RN Anticipated discharge date: Clinical course to determine Anticipated discharge place: Home A total of 31 minutes was spent on the care of this complex patient more than 50% of the time was spent in counseling and care coordination. I reviewed the documentation as provided by the CRISTIAN above, who is the original author of this note. I agree with the documented assessment and plan, with the following changes: none Objective - Vital Signs Vital signs: Vital Signs Temp 98.8 F 11/04/21 01:37 Pulse 82 11/04/21 01:37 Resp 18 11/04/21 01:37 BP 136/65 11/04/21 01:37 Pulse Ox 99 11/04/21 01:37 FiO2 Intake & Output 11/03/21 11/04/21 11/04/21 18:59 06:59 18:59 Output Total 800 700 Balance -800 -700 Output: Urine 800 700 - Labs CBC & Chem 7: 11/03/21 05:29 11/03/21 05:29 Labs: Abnormal Lab Results - Last 24 Hours (Table) 11/03/21 11/03/21 Range/Units 16:40 20:17 POC Glucose (mg/dL) 108 H 107 H (75-99) mg/dL Microbiology - Last 24 Hours (Table) 10/29/21 18:15 Blood Culture - Preliminary Blood No Growth after 120 hours 10/29/21 18:00 Blood Culture - Preliminary Blood No Growth after 120 hours
[2021-11-04 16:41] LABS: Glucose,Whole Blood 113 mg/dL (75-99)
[2021-11-04] MEDS: amLODIPine 10 MG TAB PO SCH (20:04)
[2021-11-04] MEDS: CLOPIDOGREL 75 MG TAB PO SCH (20:04)
[2021-11-04] MEDS: MELATONIN 5 MG TABLET PO SCH (20:04)
[2021-11-04] MEDS: ATORVASTATIN 20 MG TAB PO SCH (20:04)
[2021-11-04 20:05] LABS: Glucose,Whole Blood 101 mg/dL (75-99)
[2021-11-05 06:47] LABS: Glucose,Whole Blood 93 mg/dL (75-99)
[2021-11-05] MEDS: INSULIN ASPART (NovoLOG) 100 UNIT/ML VIAL SQ SCH ×4 (08:15→20:46)
[2021-11-05] MEDS: TAMSULOSIN 0.4 MG CAP.ER.24H PO SCH (08:20)
[2021-11-05] MEDS: ERTAPENEM 1 GM in SODIUM CHLORIDE 0.9% 50 ML IVPB SCH (08:20)
[2021-11-05] MEDS: MAGNESIUM OXIDE 400 MG TAB PO SCH (08:20)
[2021-11-05] MEDS: HEPARIN SODIUM,PORCINE/PF 5,000 UNIT/0.5 ML SYRINGE SQ SCH ×4 (08:20→23:47)
[2021-11-05] MEDS: polyethylene glycoL 3350 17 GM POWD.PACK PO SCH (08:20)
[2021-11-05] MEDS: LACTULOSE 20 GM/30 ML CUP PO SCH ×2 (08:20→16:24)
--- NOTE | 2021-11-05 11:01 | P.PN ---
Subjective Progress Note Date: 11/05/21 Patient is seen and examined density follow-up. Discussion has been had with patient over the weekend regarding proceeding with [id number] amputation versus hospice/palliative care. Patient states she does not seem interested in hospice or palliative care. Would like to think further on amputation and given answer later today. Today's labs are currently pending. She denies any fevers, chills, shortness of breath, chest pain, or abdominal pain. Objective - Vital Signs Vital signs: Vital Signs Temp 97.9 F 11/05/21 07:53 Pulse 69 11/05/21 07:53 Resp 16 11/05/21 08:00 BP 130/70 11/05/21 07:53 Pulse Ox 99 11/05/21 07:53 FiO2 Intake & Output 11/04/21 11/05/21 11/05/21 18:59 06:59 18:59 Intake Total 0 Output Total 0 1200 Balance 0 -1200 Intake: Oral 0 Output: Urine 0 1200 Other: Voiding Method Indwelling Catheter - Exam General appearance: The patient is alert, oriented, appears in no acute distress. HET: Head is normocephalic and atraumatic. Neck: Supple without lymphadenopathy. Trachea midline. Heart: S1 S2. Regular rate and rhythm. Lungs: Clear to auscultation bilaterally. Abdomen: Soft, nontender, nondistended. Extremities: Left lower extremity, groin with open wound with good granulation, absorptive silver present. left lower extremity wounds at the medial aspect above the ankle which appears to be healing. The dorsal aspect of the foot has a 2-3cm wound with fibrinous tissue, without purulent drainage. The lateral lower extremity wound demonstrates purulent drainage and exposed hardware. Heel wound noted Neurological: No focal deficits. Alert and oriented 3. - Labs CBC & Chem 7: 11/03/21 05:29 11/03/21 05:29 Labs: Abnormal Lab Results - Last 24 Hours (Table) 11/04/21 11/04/21 Range/Units 16:40 20:03 POC Glucose (mg/dL) 113 H 101 H (75-99) mg/dL Microbiology - Last 24 Hours (Table) 10/29/21 18:15 Blood Culture - Final Blood No Growth after 144 hours 10/29/21 18:00 Blood Culture - Final Blood No Growth after 144 hours Assessment and Plan Assessment: 1. Chronic Nonhealing wounds to left lower extremity 2. Peripheral arterial disease status post left femoral popliteal bypass with in situ vein and left common femoral artery thrombectomy 3. Former smoker 4. Chronic anemia Plan: 1. Continue local wound care 2. Continue antibiotic recommendations per infectious disease 3. Physical therapy consulted 4. Type and screen ordered 5. If proceeding with amputation this week, will hold Plavix Further discussion with patient regarding recommendation for above the knee amputation of left lower extremity due to hardware exposure and infection as well as nonhealing wound with peripheral arterial disease. It was also discussed that patient has pretty much been bed bound since June other than getting in wheelchair to eat, she would need to participate in physical therapy to get stronger for possible prosthetic. Other option included palliative/hospice care. Patient would like to proceed with above the knee amputation. Date and time to follow. The impression and plan of care has been dictated as directed. Dr. Sharpe I performed a history and examination of this patient, discussed the same with the dictator. I agree with the dictator's note ,documented as a scribe. Any additional findings or plans will be noted.
[2021-11-05 11:07] LABS: Glucose,Whole Blood 97 mg/dL (75-99)
[2021-11-05] MEDS: COLLAGENASE 250 UNIT/GM OINTMENT 30 GM TUBE TOPICAL SCH (13:19)
[2021-11-05] MEDS: SODIUM CHLORIDE 0.9% 1,000 ML IV SCH ×2 (13:20→23:56)
--- NOTE | 2021-11-05 13:30 | US ---
EXAMINATION TYPE: US duplex graft LE LT DATE OF EXAM: 10/31/2021 COMPARISON: NONE CLINICAL HISTORY: assess patency. patient is poor historian, states she had graft a year ago but unsu re where in her leg. Left leg does not hurt but she says she is always cold Nondiagnostic US to assess for graft. Patient has very swollen leg. Tech scanned from high thigh to c juan and found no obvious signs of any grafting. Echogenic walled tubular structure seen could be non patent graft versus [place] calcified artery. Unable to view any vessels within popiteal or calf due t o extensive edema. IMPRESSION: As above.
[2021-11-05 14:59] LABS: HCT 23.8 % (37.2-46.3); HGB 7.1 g/dL (12.0-15.0); MCH 23.7 pg (27.0-32.0); MCHC 29.8 g/dL (32.0-37.0); MCV 79.6 fL (80.0-97.0); Mean Platelet Volume 9.2 fL (9.5-12.2); NRBC Per 100 WBC 0 /100 WBCS (0.0-0.0); Platelet Count 458 X 10*3/uL (140-440); RBC 2.99 X 10*6/uL (4.10-5.20); RDW 14.7 % (11.5-14.5); WBC 10.22 X 10*3/uL (4.50-10.00)
[2021-11-05 15:53] LABS: ALT 8 U/L (8-44); AST 13 U/L (13-35); African American GFR (CKD) 100.3 (60.0-200.0); Albumin 2.6 g/dL (3.8-4.9); Albumin/Globulin Ratio 0.79 (1.60-3.17); Alkaline Phosphatase 103 U/L (41-126); BUN/Creat Ratio 23.14 Ratio (12.00-20.00); Blood Urea Nitrogen 16.2 mg/dL (9.0-27.0); Calcium 8.4 mg/dL (8.7-10.3); Carbon Dioxide 22.4 mmol/L (20.0-27.5); Chloride 108 mmol/L (96-109); Globulin 3.3 g/dL (1.6-3.3); Glucose 101 mg/dL (70-110); Magnesium 1.8 mg/dL (1.5-2.4); Non-African American GFR(CKD) 86.6 (60.0-200.0); Potassium 3.1 mmol/L (3.5-5.5); Sodium 142 mmol/L (135-145); Total Bilirubin <0.15 mg/dL (0.30-1.20); Total Protein 5.9 g/dL (6.2-8.2)
[2021-11-05] MEDS ORDERED: POTASSIUM CHLORIDE ER 20 MEQ TAB.ER PO STA (16:05)
[2021-11-05 16:27] LABS: Glucose,Whole Blood 112 mg/dL (75-99)
[2021-11-05] MEDS: HYDROcodone/APAP 5-325MG 1 EACH TAB PO PRN (16:29)
--- NOTE | 2021-11-05 17:13 | P.PN ---
Subjective Progress Note Date: 11/05/21 Hospital course: Patient is a very pleasant 70-year-old female with a past medical history of CAD with previous [place], hypertension, hyperlipidemia, stage III chronic kidney disease, diabetes mellitus, status post ORIF of left ankle on 06/14/21 resulting in delayed wound healing and also radiation secondary to patient's severe peripheral arterial occlusive disease, patient has since underwent left femoral popliteal bypass graft and femoral artery angioplasty on 07/29/21 and is now returning to the emergency department secondary to this nonhealing left ankle wound/ulceration. Patient underwent full evaluation in the emergency department and was found to have leukocytosis with WBC count of 15.6, microchromic hypochromic anemia with hemoglobin of 9.7, Renal function consistent with stage III CKD with BUN 42, creatinine 1.33, and GFR 40 (baseline creatinine 1.5). X- ray left ankle showing no focal bone distraction and no signs of osteomyelitis with calcaneal spurring and evidence of previous internal fixation intact. X- ray left foot showing no evidence of osteomyelitis, no fracture and positive for atherosclerotic disease. EKG completed showing normal sinus rhythm at 70 bpm with no noted T-wave or ST abnormalities. Wound cultures obtained and sent to lab for analysis. Patient was started on IV antibiotic Invanz and admitted under our services with consultation to vascular surgery, infectious disease and wound care. Arterial Doppler of left lower extremity revealing bypass graft with no flow. Vascular surgery discussed options with patient including redoing bypass graft with CryoVein versus above-knee amputation or no interventions and palliative care. Wound culture positive for ESBL with Staphylococcus aureus, Klebsiella pneumoniae, and Strep agalactiae. She remains on IV antibiotics with Invanz. Physical exam: Patient seen and fully evaluated at bedside this morning. Patient slightly anxi ous and expressed fear of decision that she has made. Patient reports that she has decided to go with the above-knee amputation. Patient reports she talked with vascular surgery and feels that is her best option. Patient states she is just waiting for vascular surgeon to come and talk with her. Patient denies having any headache, lightheadedness, dizziness, chest pain, palpitations, or shortness of breath. She remains on IV antibiotic Invanz for treatment of ESBL with Staphylococcus aureus, Klebsiella pneumoniae, and Strep agalactiae infected wound/ulcer. Morning labs reveal hemoglobin stable at 7.1 and persistent thrombocytosis with platelet count of 458. Potassium 3.1 and replaced. Vital signs reviewed and stable. General: Nontoxic, no distress and appears stated age. Derm: Skin warm and dry, normal coloration for ethnicity. 3 cm ulceration the left lateral ankle as well as ulceration to the dorsal surface of left foot/ankle region, appears to be in healing stages with no surrounding erythema or necrotic tissue. Head: Atraumatic, normocephalic and symmetric. Eyes: EOMs intact, no lid lag, and anicteric sclera Mouth: no lip lesions, mucus membranes moist Cardiovascular: regular rate and rhythm with normal S1S2, systolic murmur, positive posterior tibial pulses bilaterally, and cap refill < 2 seconds. Lungs: Respirations even, regular, and unlabored on room air. Lungs CTA bilaterally, no rhonchi, no rales, no wheezing, and no accessory muscle usage. Abdominal: soft, nontender to palpation, no guarding, no appreciable organomegaly Ext: ROM intact. No gross muscle atrophy, no edema, no contractures Neuro: Speech clear, face symmetrical and CN II-XII grossly intact with no noted focal neuro deficits Psych: Alert and oriented to person, place, time, and situation. Appropriate and pleasant affect. Assessment and Plan of Care: Nonhealing ulcer of the left ankle and dorsal surface of left foot status post O RIF of left ankle on 06/14/21 Severe peripheral arterial occlusive disease status post left femoral popliteal bypass graft and femoral artery angioplasty 07/29/21 -IV antibiotics: Invanz -Wound culture positive for ESBL with Staphylococcus aureus, Klebsiella pneumoniae, and Strep agalactiae. -Blood culture showing no growth -Infectious disease following, appreciate further recommendations. -Wound care following. -Vascular surgery following, vascular surgery discussed options with patient including redoing bypass graft with CryoVein versus above-knee amputation or no interventions and palliative/hospice care. -Symptomatic care and pain management. -Continue daily medication regimen with Plavix 75 mg nightly. Hypokalemia, replaced Hypertension -Monitor vital signs and continue daily medication regimen with amlodipine. Hyperlipidemia -Continue daily medication regimen with atorvastatin 20 mg nightly. Stage III chronic kidney disease -Stable, we will continue to monitor with repeat a.m. labs Diabetes mellitus -Glycemic protocol with NovoLog sliding scale. Anemia of chronic disease Chronic Thrombocytosis -Stable at baseline with hemoglobin 7.1 and platelet count of 458. We will continue to monitor with repeat a.m. labs. CODE STATUS: Full code DVT prophylaxis: Heparin Discussed with: Patient, patient sister and RN Anticipated discharge date: Clinical course to determine Anticipated discharge place: Home A total of 31 minutes was spent on the care of this complex patient more than 50% of the time was spent in counseling and care coordination. Objective - Vital Signs Vital signs: Vital Signs Temp 97.9 F 11/05/21 07:53 Pulse 69 11/05/21 07:53 Resp 16 11/05/21 08:00 BP 130/70 11/05/21 07:53 Pulse Ox 99 11/05/21 07:53 FiO2 Intake & Output 11/04/21 11/05/21 11/05/21 18:59 06:59 18:59 Intake Total 0 Output Total 0 1200 Balance 0 -1200 Intake: Oral 0 Output: Urine 0 1200 Other: Voiding Method Indwelling Catheter - Labs CBC & Chem 7: 11/05/21 09:12 11/05/21 09:12 Labs: Abnormal Lab Results - Last 24 Hours (Table) 11/04/21 11/04/21 Range/Units 16:40 20:03 POC Glucose (mg/dL) 113 H 101 H (75-99) mg/dL Microbiology - Last 24 Hours (Table) 10/29/21 18:15 Blood Culture - Final Blood No Growth after 144 hours 10/29/21 18:00 Blood Culture - Final Blood No Growth after 144 hours
[2021-11-05 20:37] LABS: Glucose,Whole Blood 127 mg/dL (75-99)
[2021-11-05] MEDS: MELATONIN 5 MG TABLET PO SCH (20:44)
[2021-11-05] MEDS: ATORVASTATIN 20 MG TAB PO SCH (20:44)
[2021-11-05] MEDS: amLODIPine 10 MG TAB PO SCH (20:44)
[2021-11-06] MEDS: ERTAPENEM 1 GM in SODIUM CHLORIDE 0.9% 50 ML IVPB SCH (07:03)
[2021-11-06] MEDS: LACTULOSE 20 GM/30 ML CUP PO SCH ×2 (07:04→16:06)
[2021-11-06] MEDS: polyethylene glycoL 3350 17 GM POWD.PACK PO SCH (07:04)
[2021-11-06] MEDS: TAMSULOSIN 0.4 MG CAP.ER.24H PO SCH (07:04)
[2021-11-06] MEDS: MAGNESIUM OXIDE 400 MG TAB PO SCH (07:04)
[2021-11-06] MEDS: HEPARIN SODIUM,PORCINE/PF 5,000 UNIT/0.5 ML SYRINGE SQ SCH ×2 (07:05→16:07)
--- NOTE | 2021-11-06 07:36 | P.PN ---
Subjective Progress Note Date: 11/03/21 Principal diagnosis: Left heel ankle wound and cellulitis Patient is a 71-year-old female with a past medical history significant for chronic nonhealing wound to the left foot ankle area and this patient did have a surgery followed by revascularization to the left leg now has been brought back to the hospital concerning for infection to the left foot and ankle area with a nonhealing wound. On today's evaluation that is 11/03/2021 the patient remains to be afebrile, the patient is breathing comfortably on room air, the patient pain to the left foot and ankle area is currently controlled, the patient denies chest pain shortness of breath or cough no abdominal pain and no diarrhea Objective - Vital Signs Vital signs: Vital Signs Temp 98.6 F 11/03/21 13:57 Pulse 89 11/03/21 13:57 Resp 18 11/03/21 13:57 BP 125/67 11/03/21 13:57 Pulse Ox 96 11/03/21 13:57 FiO2 Intake & Output 11/02/21 11/03/21 11/03/21 18:59 06:59 18:59 Output Total 400 1400 Balance -400 -1400 Output: Urine 400 1400 Other: # Bowel Movements 1 - Exam GENERAL DESCRIPTION: An elderly female lying in bed in no distress RESPIRATORY SYSTEM: Unlabored breathing , decreased breath sounds at bases HEART: S1 S2 regular rate and rhythm , ABDOMEN: Soft , no tenderness EXTREMITIES: Left foot and ankle area did have multiple wound with some necrotic changes and no redness - Labs CBC & Chem 7: 11/05/21 09:12 11/05/21 09:12 Labs: Abnormal Lab Results - Last 24 Hours (Table) 11/02/21 11/02/21 11/03/21 Range/Units 16:29 20:19 05: RBC 3.03 L (4.10-5.20) X 10*6/uL Hgb 7.4 L (12.0-15.0) g/dL Hct 23.9 L (37.2-46.3) % MCV 78.9 L (80.0-97.0) fL MCH 24.4 L (27.0-32.0) pg MCHC 31.0 L (32.0-37.0) g/dL RDW 14.6 H (11.5-14.5) % Plt Count 494 H (140-440) X 10*3/uL MPV 9.1 L (9.5-12.2) fL BUN/Creatinine Ratio (12.00-20.00) Ratio POC Glucose (mg/dL) 102 H 105 H (75-99) mg/dL Total Bilirubin (0.30-1.20) mg/dL Total Protein (6.2-8.2) g/dL Albumin (3.8-4.9) g/dL Albumin/Globulin Ratio (1.60-3.17) g/dL 11/03/21 Range/Units 05:29 RBC (4.10-5.20) X 10*6/uL Hgb (12.0-15.0) g/dL Hct (37.2-46.3) % MCV (80.0-97.0) fL MCH (27.0-32.0) pg MCHC (32.0-37.0) g/dL RDW (11.5-14.5) % Plt Count (140-440) X 10*3/uL MPV (9.5-12.2) fL BUN/Creatinine Ratio 28.76 H (12.00-20.00) Ratio POC Glucose (mg/dL) (75-99) mg/dL Total Bilirubin <0.15 L (0.30-1.20) mg/dL Total Protein 5.8 L (6.2-8.2) g/dL Albumin 2.7 L (3.8-4.9) g/dL Albumin/Globulin Ratio 0.87 L (1.60-3.17) g/dL Microbiology - Last 24 Hours (Table) 10/29/21 18:15 Blood Culture - Preliminary Blood No Growth after 96 hours 10/29/21 18:00 Blood Culture - Preliminary Blood No Growth after 96 hours Assessment and Plan (1) Wound infection after surgery Current Visit: No Status: Acute Code(s): T81.49XA - INFECTION FOLLOWING A PROCEDURE, OTHER SURGICAL SITE, INIT SNOMED Code(s): 38675901 Plan: 1patient with a chronic nonhealing wound to the left ankle area in this patient did have multiple surgeries also left femoropopliteal bypass surgery now presented to hospital with nonhealing wound has been there for couple of months now patient did have elevated white count admission however no fever he did have multiple wounds to the left heel left groin area with some necrotic tissue no significant surrounding redness underlying infection less likely but not entirely excluded 2local cultures are growing ESBL Klebsiella and MSSA and strep. 3 vascular surgery is following the patient and is recommending possible amputation versus palliative care, awaiting final decision from the patient 4- patient to continue with the Invanz 1 g daily Time with Patient: Less than 30
--- NOTE | 2021-11-06 07:37 | P.PN ---
Subjective Progress Note Date: 11/04/21 Principal diagnosis: Left heel ankle wound and cellulitis Patient is a 71-year-old female with a past medical history significant for chronic nonhealing wound to the left foot ankle area and this patient did have a surgery followed by revascularization to the left leg now has been brought back to the hospital concerning for infection to the left foot and ankle area with a nonhealing wound. On today's evaluation that is 11/04/2021 the patient is afebrile, the patient is breathing comfortably on room air, the patient denies any worsening pain to the left foot and ankle area, the patient denies chest pain shortness of breath or cough no abdominal pain and no diarrhea Objective - Vital Signs Vital signs: Vital Signs Temp 97.9 F 11/04/21 19:38 Pulse 86 11/04/21 19:38 Resp 18 11/04/21 19:38 BP 131/72 11/04/21 19:38 Pulse Ox 97 11/04/21 19:38 FiO2 Intake & Output 11/04/21 11/04/21 11/05/21 06:59 18:59 06:59 Intake Total 0 Output Total 700 0 Balance -700 0 Intake: Oral 0 Output: Urine 700 0 - Exam GENERAL DESCRIPTION: An elderly female lying in bed in no distress RESPIRATORY SYSTEM: Unlabored breathing , decreased breath sounds at bases HEART: S1 S2 regular rate and rhythm , ABDOMEN: Soft , no tenderness EXTREMITIES: Left foot and ankle area did have multiple wound with some necrotic changes and no redness - Labs CBC & Chem 7: 11/05/21 09:12 11/05/21 09:12 Labs: Abnormal Lab Results - Last 24 Hours (Table) 11/04/21 11/04/21 Range/Units 16:40 20:03 POC Glucose (mg/dL) 113 H 101 H (75-99) mg/dL Microbiology - Last 24 Hours (Table) 10/29/21 18:15 Blood Culture - Final Blood No Growth after 144 hours 10/29/21 18:00 Blood Culture - Final Blood No Growth after 144 hours Assessment and Plan (1) Wound infection after surgery Current Visit: No Status: Acute Code(s): T81.49XA - INFECTION FOLLOWING A PROCEDURE, OTHER SURGICAL SITE, INIT SNOMED Code(s): 92366524 Plan: 1patient with a chronic nonhealing wound to the left ankle area in this patient did have multiple surgeries also left femoropopliteal bypass surgery now presented to hospital with nonhealing wound has been there for couple of months now patient did have elevated white count admission however no fever he did have multiple wounds to the left heel left groin area with some necrotic tissue no significant surrounding redness underlying infection less likely but not entirely excluded 2local cultures are growing ESBL Klebsiella and MSSA and strep. 3 vascular surgery is following the patient and is recommending possible amputation versus palliative care, still waiting for final decision from the patient 4- patient to continue with the Invanz 1 g daily and monitor clinical course closely Time with Patient: Less than 30
--- NOTE | 2021-11-06 07:38 | P.PN ---
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 On today's evaluation that is 11/05/2021 the patient denies any fever or any chills, the patient is breathing comfortably on room air, the patient pain to the left foot and ankle area is controlled, the patient denies chest pain shortness of breath or cough no abdominal pain and no diarrhea Objective - Vital Signs Vital signs: Vital Signs Temp 97.9 F 11/05/21 07:53 Pulse 69 11/05/21 07:53 Resp 16 11/05/21 08:00 BP 130/70 11/05/21 07:53 Pulse Ox 99 11/05/21 07:53 FiO2 Intake & Output 11/04/21 11/05/21 11/05/21 18:59 06:59 18:59 Intake Total 0 Output Total 0 1200 Balance 0 -1200 Weight 54.885 kg Intake: Oral 0 Output: Urine 0 1200 Other: Voiding Method Indwelling Catheter - Exam GENERAL DESCRIPTION: An elderly female lying in bed in no distress RESPIRATORY SYSTEM: Unlabored breathing , decreased breath sounds at bases HEART: S1 S2 regular rate and rhythm , ABDOMEN: Soft , no tenderness EXTREMITIES: Left foot and ankle area did have multiple wound with some necrotic changes and no redness - Labs CBC & Chem 7: 11/05/21 09:12 11/05/21 09:12 Labs: Abnormal Lab Results - Last 24 Hours (Table) 11/04/21 11/04/21 Range/Units 16:40 20:03 POC Glucose (mg/dL) 113 H 101 H (75-99) mg/dL Microbiology - Last 24 Hours (Table) 10/29/21 18:15 Blood Culture - Final Blood No Growth after 144 hours 10/29/21 18:00 Blood Culture - Final Blood No Growth after 144 hours Assessment and Plan (1) Wound infection after surgery Current Visit: No Status: Acute Code(s): T81.49XA - INFECTION FOLLOWING A PROCEDURE, OTHER SURGICAL SITE, INIT SNOMED Code(s): 18382764 Plan: 1patient with a chronic nonhealing wound to the left ankle area in this patient did have multiple surgeries also left femoropopliteal bypass surgery now presented to hospital with nonhealing wound has been there for couple of months now patient did have elevated white count admission however no fever he did have multiple wounds to the left heel left groin area with some necrotic tissue no significant surrounding redness underlying infection less likely but not entirely excluded 2local cultures are growing ESBL Klebsiella and MSSA and strep. 3 vascular surgery is following the patient and is recommending possible a mputation versus palliative care, patient seemed have agreed to undergo amputation of the left leg 4- patient will continue with the Invanz 1 g daily and monitor clinical course closely Time with Patient: Less than 30
[2021-11-06] MEDS: INSULIN ASPART (NovoLOG) 100 UNIT/ML VIAL SQ SCH ×4 (07:42→21:05)
[2021-11-06] MEDS: COLLAGENASE 250 UNIT/GM OINTMENT 30 GM TUBE TOPICAL SCH (08:35)
[2021-11-06 09:14] LABS: HCT 24.8 % (37.2-46.3); HGB 7.5 g/dL (12.0-15.0); MCH 23.7 pg (27.0-32.0); MCHC 30.2 g/dL (32.0-37.0); MCV 78.5 fL (80.0-97.0); Mean Platelet Volume 9.2 fL (9.5-12.2); NRBC Per 100 WBC 0 /100 WBCS (0.0-0.0); Platelet Count 486 X 10*3/uL (140-440); RBC 3.16 X 10*6/uL (4.10-5.20); RDW 14.6 % (11.5-14.5); WBC 9.28 X 10*3/uL (4.50-10.00)
[2021-11-06 09:19] LABS: ALT 8 U/L (8-44); AST 15 U/L (13-35); African American GFR (CKD) 100.3 (60.0-200.0); Albumin 2.7 g/dL (3.8-4.9); Albumin/Globulin Ratio 0.79 (1.60-3.17); Alkaline Phosphatase 105 U/L (41-126); BUN/Creat Ratio 21.29 Ratio (12.00-20.00); Blood Urea Nitrogen 14.9 mg/dL (9.0-27.0); Calcium 8.5 mg/dL (8.7-10.3); Carbon Dioxide 22.8 mmol/L (20.0-27.5); Chloride 108 mmol/L (96-109); Globulin 3.4 g/dL (1.6-3.3); Glucose 91 mg/dL (70-110); Non-African American GFR(CKD) 86.6 (60.0-200.0); Potassium 3.4 mmol/L (3.5-5.5); Sodium 142 mmol/L (135-145); Total Bilirubin <0.15 mg/dL (0.30-1.20); Total Protein 6.1 g/dL (6.2-8.2)
[2021-11-06] MEDS ORDERED: POTASSIUM CHLORIDE ER 20 MEQ TAB.ER PO STA (09:36)
--- NOTE | 2021-11-06 11:19 | P.PN ---
Subjective Progress Note Date: 11/06/21 Principal diagnosis: Peripheral arterial disease, nonhealing wounds Patient is seen and examined as a follow-up. Patient was initially scheduled to undergo left [id number] amputation today, however due to the OR schedule patient is going to be rescheduled for tomorrow morning. No acute changes through the night. Patient's labs came back yesterday with a hemoglobin of 7.1, potassium was 3.1. Potassium was replaced, 1 unit of PRBC transfusion ordered. Patient currently receiving it. She denies any fevers or chills. Objective - Vital Signs Vital signs: Vital Signs Temp 97.7 F 11/06/21 10:28 Pulse 87 11/06/21 10:07 Resp 16 11/06/21 09:48 BP 135/65 11/06/21 10:28 Pulse Ox 100 11/06/21 07:43 FiO2 Intake & Output 11/05/21 11/06/21 11/06/21 18:59 06:59 18:59 Intake Total 800 0 Output Total 1600 Balance 800 -1600 0 Weight 54.885 kg Intake: Oral 800 Blood Product 0 Rc As-1 Unit 0 [id number] Output: Urine 1600 Other: Voiding Method Indwelling Catheter Indwelling Catheter Indwelling Catheter # Bowel Movements 0 - Exam General appearance: The patient is alert, oriented, appears in no acute distress. HET: Head is normocephalic and atraumatic. Neck: Supple without lymphadenopathy. Trachea midline. Heart: S1 S2. Regular rate and rhythm. Lungs: Clear to auscultation bilaterally. Abdomen: Soft, nontender, nondistended. Extremities: Left lower extremity, groin with open wound with good granulation, absorptive silver present. left lower extremity wounds at the medial aspect above the ankle which appears to be healing. The dorsal aspect of the foot has a 2-3cm wound with fibrinous tissue, without purulent drainage. The lateral lower extremity wound demonstrates purulent drainage and exposed hardware. Heel wound noted Neurological: No focal deficits. Alert and oriented 3. - Labs CBC & Chem 7: 11/06/21 04:43 11/06/21 04:43 Labs: Abnormal Lab Results - Last 24 Hours (Table) 11/05/21 11/05/21 11/05/21 Range/Units 09:12 09:12 11:24 WBC 10.22 H (4.50-10.00) X 10*3/uL RBC 2.99 L (4.10-5.20) X 10*6/uL Hgb 7.1 L (12.0-15.0) g/dL Hct 23.8 L (37.2-46.3) % MCV 79.6 L (80.0-97.0) fL MCH 23.7 L (27.0-32.0) pg MCHC 29.8 L (32.0-37.0) g/dL RDW 14.7 H (11.5-14.5) % Plt Count 458 H (140-440) X 10*3/uL MPV 9.2 L (9.5-12.2) fL Potassium 3.1 L (3.5-5.5) mmol/L BUN/Creatinine Ratio 23.14 H (12.00-20.00) Ratio POC Glucose (mg/dL) (75-99) mg/dL Calcium 8.4 L (8.7-10.3) mg/dL Total Bilirubin <0.15 L (0.30-1.20) mg/dL Total Protein 5.9 L (6.2-8.2) g/dL Albumin 2.6 L (3.8-4.9) g/dL Globulin (1.6-3.3) g/dL Albumin/Globulin Ratio 0.79 L (1.60-3.17) g/dL Crossmatch See Detail 11/05/21 11/05/21 11/06/21 Range/Units 16:25 20:36 04:43 WBC (4.50-10.00) X 10*3/uL RBC 3.16 L (4.10-5.20) X 10*6/uL Hgb 7.5 L (12.0-15.0) g/dL Hct 24.8 L (37.2-46.3) % MCV 78.5 L (80.0-97.0) fL MCH 23.7 L (27.0-32.0) pg MCHC 30.2 L (32.0-37.0) g/dL RDW 14.6 H (11.5-14.5) % Plt Count 486 H (140-440) X 10*3/uL MPV 9.2 L (9.5-12.2) fL Potassium (3.5-5.5) mmol/L BUN/Creatinine Ratio (12.00-20.00) Ratio POC Glucose (mg/dL) 112 H 127 H (75-99) mg/dL Calcium (8.7-10.3) mg/dL Total Bilirubin (0.30-1.20) mg/dL Total Protein (6.2-8.2) g/dL Albumin (3.8-4.9) g/dL Globulin (1.6-3.3) g/dL Albumin/Globulin Ratio (1.60-3.17) g/dL Crossmatch 11/06/21 Range/Units 04:43 WBC (4.50-10.00) X 10*3/uL RBC (4.10-5.20) X 10*6/uL Hgb (12.0-15.0) g/dL Hct (37.2-46.3) % MCV (80.0-97.0) fL MCH (27.0-32.0) pg MCHC (32.0-37.0) g/dL RDW (11.5-14.5) % Plt Count (140-440) X 10*3/uL MPV (9.5-12.2) fL Potassium 3.4 L (3.5-5.5) mmol/L BUN/Creatinine Ratio 21.29 H (12.00-20.00) Ratio POC Glucose (mg/dL) (75-99) mg/dL Calcium 8.5 L (8.7-10.3) mg/dL Total Bilirubin <0.15 L (0.30-1.20) mg/dL Total Protein 6.1 L (6.2-8.2) g/dL Albumin 2.7 L (3.8-4.9) g/dL Globulin 3.4 H (1.6-3.3) g/dL Albumin/Globulin Ratio 0.79 L (1.60-3.17) g/dL Crossmatch Assessment and Plan Assessment: 1. Chronic Nonhealing wounds to left lower extremity 2. Peripheral arterial disease status post left femoral popliteal bypass with in situ vein and left common femoral artery thrombectomy 3. Former smoker 4. Chronic anemia Plan: 1. Continue local wound care 2. Continue antibiotic recommendations per infectious disease 3. Physical therapy consulted 4. 1 unit PRBC ordered 5. Repeat CBC, BMP in the morning 6. Consistent carbohydrate diet, nothing by mouth after midnight 7. Hold morning dose of heparin The impression and plan of care has been dictated as directed. Dr. Colby I performed a history and examination of this patient, discussed the same with the dictator. I agree with the dictator's note ,documented as a scribe. Any additional findings or plans will be noted.
[2021-11-06 11:35] LABS: Glucose,Whole Blood 95 mg/dL (75-99)
--- NOTE | 2021-11-06 13:59 | P.PN ---
Subjective Hospital course: Patient is a very pleasant 70-year-old female with a past medical history of CAD with previous [place], hypertension, hyperlipidemia, stage III chronic kidney disease, diabetes mellitus, status post ORIF of left ankle on 06/14/21 resulting in delayed wound healing and also radiation secondary to patient's severe peripheral arterial occlusive disease, patient has since underwent left femoral popliteal bypass graft and femoral artery angioplasty on 07/29/21 and is now returning to the emergency department secondary to this nonhealing left ankle wound/ulceration. Patient underwent full evaluation in the emergency department and was found to have leukocytosis with WBC count of 15.6, microchromic hypochr omic anemia with hemoglobin of 9.7, Renal function consistent with stage III CKD with BUN 42, creatinine 1.33, and GFR 40 (baseline creatinine 1.5). X-ray left ankle showing no focal bone distraction and no signs of osteomyelitis with calcaneal spurring and evidence of previous internal fixation intact. X-ray left foot showing no evidence of osteomyelitis, no fracture and positive for atherosclerotic disease. EKG completed showing normal sinus rhythm at 70 bpm with no noted T-wave or ST abnormalities. Wound cultures obtained and sent to lab for analysis. Patient was started on IV antibiotic Invanz and admitted under our services with consultation to vascular surgery, infectious disease and wound care. Arterial Doppler of left lower extremity revealing bypass graft with no flow. Vascular surgery discussed options with patient including redoing bypass graft with CryoVein versus above-knee amputation or no interventions and palliative care. Wound culture positive for ESBL with Staphylococcus aureus, Klebsiella pneumoniae, and Strep agalactiae. She remains on IV antibiotics with Invanz. Physical exam: Patient seen and fully evaluated at bedside this morning. Vascular surgery discussed the case with the patient and the plan to proceed with left above-knee amputation. Patient denies any chest pain or shortness of breath Vital signs reviewed and stable. General: Nontoxic, no distress and appears stated age. Derm: Skin warm and dry, normal coloration for ethnicity. 3 cm ulceration the left lateral ankle as well as ulceration to the dorsal surface of left foot/ankle region, appears to be in healing stages with no surrounding erythema or necrotic tissue. Head: Atraumatic, normocephalic and symmetric. Eyes: EOMs intact, no lid lag, and anicteric sclera Mouth: no lip lesions, mucus membranes moist Cardiovascular: regular rate and rhythm with normal S1S2, systolic murmur, positive posterior tibial pulses bilaterally, and cap refill < 2 seconds. Lungs: Respirations even, regular, and unlabored on room air. Lungs CTA bilaterally, no rhonchi, no rales, no wheezing, and no accessory muscle usage. Abdominal: soft, nontender to palpation, no guarding, no appreciable organomegaly Ext: ROM intact. No gross muscle atrophy, no edema, no contractures Neuro: Speech clear, face symmetrical and CN II-XII grossly intact with no noted focal neuro deficits Psych: Alert and oriented to person, place, time, and situation. Appropriate and pleasant affect. Assessment and Plan of Care: Nonhealing ulcer of the left ankle and dorsal surface of left foot status post ORIF of left ankle on 06/14/21 Severe peripheral arterial occlusive disease status post left femoral popliteal bypass graft and femoral artery angioplasty 07/29/21 -IV antibiotics: Invanz -Wound culture positive for ESBL with Staphylococcus aureus, Klebsiella pneumoniae, and Strep agalactiae. -Blood culture showing no growth -Infectious disease following, appreciate further recommendations. -Wound care following. -Vascular surgery following, vascular surgery discussed plan for above-knee amputation -Symptomatic care and pain management. -Plavix and hold for upcoming surgery Hypokalemia, replaced Hypertension -Monitor vital signs and continue daily medication regimen with amlodipine. Hyperlipidemia -Continue daily medication regimen with atorvastatin 20 mg nightly. Stage III chronic kidney disease -Stable, we will continue to monitor with repeat a.m. labs Diabetes mellitus -Glycemic protocol with NovoLog sliding scale. Anemia of chronic disease Chronic Thrombocytosis -Stable at baseline with hemoglobin 7.1 and platelet count of 458. We will continue to monitor with repeat a.m. labs. CODE STATUS: Full code DVT prophylaxis: Heparin Discussed with: Patient, patient sister and RN Anticipated discharge date: Clinical course to determine Objective - Vital Signs Vital signs: Vital Signs Temp 98.1 F 11/06/21 11:42 Pulse 86 11/06/21 11:42 Resp 16 11/06/21 09:48 BP 154/79 11/06/21 11:42 Pulse Ox 100 11/06/21 07:43 FiO2 Intake & Output 11/05/21 11/06/21 11/06/21 18:59 06:59 18:59 Intake Total 800 310 Output Total 1600 Balance 800 -1600 310 Weight 54.885 kg Intake: Oral 800 Blood Product 310 Rc As-1 Unit 310 [id number] Output: Urine 1600 Other: Voiding Method Indwelling Catheter Indwelling Catheter Indwelling Catheter # Bowel Movements 0 - Labs CBC & Chem 7: 11/06/21 04:43 11/06/21 04:43 Labs: Abnormal Lab Results - Last 24 Hours (Table) 11/05/21 11/05/21 11/05/21 Range/Units 09:12 09:12 11:24 WBC 10.22 H (4.50-10.00) X 10*3/uL RBC 2.99 L (4.10-5.20) X 10*6/uL Hgb 7.1 L (12.0-15.0) g/dL Hct 23.8 L (37.2-46.3) % MCV 79.6 L (80.0-97.0) fL MCH 23.7 L (27.0-32.0) pg MCHC 29.8 L (32.0-37.0) g/dL RDW 14.7 H (11.5-14.5) % Plt Count 458 H (140-440) X 10*3/uL MPV 9.2 L (9.5-12.2) fL Potassium 3.1 L (3.5-5.5) mmol/L BUN/Creatinine Ratio 23.14 H (12.00-20.00) Ratio POC Glucose (mg/dL) (75-99) mg/dL Calcium 8.4 L (8.7-10.3) mg/dL Total Bilirubin <0.15 L (0.30-1.20) mg/dL Total Protein 5.9 L (6.2-8.2) g/dL Albumin 2.6 L (3.8-4.9) g/dL Globulin (1.6-3.3) g/dL Albumin/Globulin Ratio 0.79 L (1.60-3.17) g/dL Crossmatch See Detail 11/05/21 11/05/21 11/06/21 Range/Units 16:25 20:36 04:43 WBC (4.50-10.00) X 10*3/uL RBC 3.16 L (4.10-5.20) X 10*6/uL Hgb 7.5 L (12.0-15.0) g/dL Hct 24.8 L (37.2-46.3) % MCV 78.5 L (80.0-97.0) fL MCH 23.7 L (27.0-32.0) pg MCHC 30.2 L (32.0-37.0) g/dL RDW 14.6 H (11.5-14.5) % Plt Count 486 H (140-440) X 10*3/uL MPV 9.2 L (9.5-12.2) fL Potassium (3.5-5.5) mmol/L BUN/Creatinine Ratio (12.00-20.00) Ratio POC Glucose (mg/dL) 112 H 127 H (75-99) mg/dL Calcium (8.7-10.3) mg/dL Total Bilirubin (0.30-1.20) mg/dL Total Protein (6.2-8.2) g/dL Albumin (3.8-4.9) g/dL Globulin (1.6-3.3) g/dL Albumin/Globulin Ratio (1.60-3.17) g/dL Crossmatch 11/06/21 Range/Units 04:43 WBC (4.50-10.00) X 10*3/uL RBC (4.10-5.20) X 10*6/uL Hgb (12.0-15.0) g/dL Hct (37.2-46.3) % MCV (80.0-97.0) fL MCH (27.0-32.0) pg MCHC (32.0-37.0) g/dL RDW (11.5-14.5) % Plt Count (140-440) X 10*3/uL MPV (9.5-12.2) fL Potassium 3.4 L (3.5-5.5) mmol/L BUN/Creatinine Ratio 21.29 H (12.00-20.00) Ratio POC Glucose (mg/dL) (75-99) mg/dL Calcium 8.5 L (8.7-10.3) mg/dL Total Bilirubin <0.15 L (0.30-1.20) mg/dL Total Protein 6.1 L (6.2-8.2) g/dL Albumin 2.7 L (3.8-4.9) g/dL Globulin 3.4 H (1.6-3.3) g/dL Albumin/Globulin Ratio 0.79 L (1.60-3.17) g/dL Crossmatch
[2021-11-06] MEDS: SODIUM CHLORIDE 0.9% 1,000 ML IV SCH (16:06)
[2021-11-06] MEDS: HYDROcodone/APAP 5-325MG 1 EACH TAB PO PRN (20:00)
[2021-11-06] MEDS: MELATONIN 5 MG TABLET PO SCH (20:17)
[2021-11-06] MEDS: amLODIPine 10 MG TAB PO SCH (20:17)
[2021-11-06] MEDS: ATORVASTATIN 20 MG TAB PO SCH (20:17)
--- NOTE | 2021-11-06 23:25 | P.PN ---
Subjective Progress Note Date: 11/06/21 Principal diagnosis: Left heel ankle wound and cellulitis Patient is a 71-year-old female with a past medical history significant for chronic nonhealing wound to the left foot ankle area and this patient did have a surgery followed by revascularization to the left leg now has been brought back to the hospital concerning for infection to the left foot and ankle area with a nonhealing wound. On today's evaluation that is 11/06/2021 the patient remains to be afebrile, the patient is breathing comfortably on room air, the patient denies any worsening pain to the left foot and ankle area , the patient denies chest pain shortness of breath or cough no abdominal pain and no diarrhea Objective - Vital Signs Vital signs: Vital Signs Temp 98.1 F 11/06/21 11:42 Pulse 86 11/06/21 11:42 Resp 16 11/06/21 09:48 BP 154/79 11/06/21 11:42 Pulse Ox 100 11/06/21 07:43 FiO2 Intake & Output 11/05/21 11/06/21 11/06/21 18:59 06:59 18:59 Intake Total 800 310 Output Total 1600 Balance 800 -1600 310 Weight 54.885 kg Intake: Oral 800 Blood Product 310 Rc As-1 Unit 310 [id number] Output: Urine 1600 Other: Voiding Method Indwelling Catheter Indwelling Catheter Indwelling Catheter # Bowel Movements 0 - Exam GENERAL DESCRIPTION: An elderly female lying in bed in no distress RESPIRATORY SYSTEM: Unlabored breathing , decreased breath sounds at bases HEART: S1 S2 regular rate and rhythm , ABDOMEN: Soft , no tenderness EXTREMITIES: Left foot and ankle area did have multiple wound with some necrotic changes and no redness - Labs CBC & Chem 7: 11/06/21 04:43 11/06/21 04:43 Labs: Abnormal Lab Results - Last 24 Hours (Table) 11/05/21 11/05/21 11/05/21 Range/Units 09:12 09:12 11:24 WBC 10.22 H (4.50-10.00) X 10*3/uL RBC 2.99 L (4.10-5.20) X 10*6/uL Hgb 7.1 L (12.0-15.0) g/dL Hct 23.8 L (37.2-46.3) % MCV 79.6 L (80.0-97.0) fL MCH 23.7 L (27.0-32.0) pg MCHC 29.8 L (32.0-37.0) g/dL RDW 14.7 H (11.5-14.5) % Plt Count 458 H (140-440) X 10*3/uL MPV 9.2 L (9.5-12.2) fL Potassium 3.1 L (3.5-5.5) mmol/L BUN/Creatinine Ratio 23.14 H (12.00-20.00) Ratio POC Glucose (mg/dL) (75-99) mg/dL Calcium 8.4 L (8.7-10.3) mg/dL Total Bilirubin <0.15 L (0.30-1.20) mg/dL Total Protein 5.9 L (6.2-8.2) g/dL Albumin 2.6 L (3.8-4.9) g/dL Globulin (1.6-3.3) g/dL Albumin/Globulin Ratio 0.79 L (1.60-3.17) g/dL Crossmatch See Detail 11/05/21 11/05/21 11/06/21 Range/Units 16:25 20:36 04:43 WBC (4.50-10.00) X 10*3/uL RBC 3.16 L (4.10-5.20) X 10*6/uL Hgb 7.5 L (12.0-15.0) g/dL Hct 24.8 L (37.2-46.3) % MCV 78.5 L (80.0-97.0) fL MCH 23.7 L (27.0-32.0) pg MCHC 30.2 L (32.0-37.0) g/dL RDW 14.6 H (11.5-14.5) % Plt Count 486 H (140-440) X 10*3/uL MPV 9.2 L (9.5-12.2) fL Potassium (3.5-5.5) mmol/L BUN/Creatinine Ratio (12.00-20.00) Ratio POC Glucose (mg/dL) 112 H 127 H (75-99) mg/dL Calcium (8.7-10.3) mg/dL Total Bilirubin (0.30-1.20) mg/dL Total Protein (6.2-8.2) g/dL Albumin (3.8-4.9) g/dL Globulin (1.6-3.3) g/dL Albumin/Globulin Ratio (1.60-3.17) g/dL Crossmatch 11/06/21 Range/Units 04:43 WBC (4.50-10.00) X 10*3/uL RBC (4.10-5.20) X 10*6/uL Hgb (12.0-15.0) g/dL Hct (37.2-46.3) % MCV (80.0-97.0) fL MCH (27.0-32.0) pg MCHC (32.0-37.0) g/dL RDW (11.5-14.5) % Plt Count (140-440) X 10*3/uL MPV (9.5-12.2) fL Potassium 3.4 L (3.5-5.5) mmol/L BUN/Creatinine Ratio 21.29 H (12.00-20.00) Ratio POC Glucose (mg/dL) (75-99) mg/dL Calcium 8.5 L (8.7-10.3) mg/dL Total Bilirubin <0.15 L (0.30-1.20) mg/dL Total Protein 6.1 L (6.2-8.2) g/dL Albumin 2.7 L (3.8-4.9) g/dL Globulin 3.4 H (1.6-3.3) g/dL Albumin/Globulin Ratio 0.79 L (1.60-3.17) g/dL Crossmatch Assessment and Plan (1) Wound infection after surgery Current Visit: No Status: Acute Code(s): T81.49XA - INFECTION FOLLOWING A PROCEDURE, OTHER SURGICAL SITE, INIT SNOMED Code(s): 48819486 Plan: 1patient with a chronic nonhealing wound to the left ankle area in this patient did have multiple surgeries also left femoropopliteal bypass surgery now presented to hospital with nonhealing wound has been there for couple of months now patient did have elevated white count admission however no fever he did have multiple wounds to the left heel left groin area with some necrotic tissue no significant surrounding redness underlying infection less likely but not entirely excluded 2local cultures are growing ESBL Klebsiella and MSSA and strep. 3 vascular surgery is following the patient and is recommending possible amputation versus palliative care, patient seemed have agreed to undergo amputation of the left leg and is scheduled for today per the nursing staff 4- patient will continue with the Invanz 1 g daily and monitor clinical course closely Time with Patient: Less than 30
[2021-11-07] MEDS: HEPARIN SODIUM,PORCINE/PF 5,000 UNIT/0.5 ML SYRINGE SQ SCH ×3 (00:15→17:09)
[2021-11-07] MEDS: SODIUM CHLORIDE 0.9% 1,000 ML IV SCH ×2 (02:40→16:52)
[2021-11-07 04:41] LABS: Basophils # (A) 0.1 k/uL (0-0.2); Basophils % (A) 1 %; Eosinophils # (A) 0.2 k/uL (0-0.7); Eosinophils % (A) 2 %; HCT 30.8 % (34.0-46.0); HGB 9.5 gm/dL (11.4-16.0); Hypochromasia Moderate; Lymphocytes # (A) 2.3 k/uL (1.0-4.8); Lymphocytes % (A) 24 %; MCH 24.8 pg (25.0-35.0); MCV 80.2 fL (80.0-100.0); Mean Platelet Volume 6.6; Monocytes # (A) 0.5 k/uL (0-1.0); Monocytes % (A) 5 %; Neutrophils # (A) 6.3 k/uL (1.3-7.7); Neutrophils % (A) 67 %; Platelet Count 571 k/uL (150-450); Poikilocytosis Slight; RBC 3.84 m/uL (3.80-5.40); RDW 15.9 % (11.5-15.5); WBC 9.5 k/uL (3.8-10.6)
[2021-11-07 05:13] LABS: African American GFR (CKD) >90 (>60 ml/min/1.73 sqM); Anion Gap 5 mmol/L; Blood Urea Nitrogen 15 mg/dL (7-17); Calcium 8.2 mg/dL (8.4-10.2); Carbon Dioxide 27 mmol/L (22-30); Chloride 108 mmol/L (98-107); Glucose 91 mg/dL (74-99); Magnesium 1.7 mg/dL (1.6-2.3); Non-African American GFR(CKD) 88 (>60 ml/min/1.73 sqM); Potassium 3.2 mmol/L (3.5-5.1); Sodium 140 mmol/L (137-145)
[2021-11-07] MEDS ORDERED: Potassium Replacement Protocol 1 EACH MISC MISCELLANE PRN (07:12)
[2021-11-07] MEDS ORDERED: POTASSIUM CHLORIDE ER 20 MEQ TAB.ER PO STA ×2 (07:43→08:10)
[2021-11-07] MEDS: LACTULOSE 20 GM/30 ML CUP PO SCH ×2 (08:08→16:52)
[2021-11-07] MEDS: TAMSULOSIN 0.4 MG CAP.ER.24H PO SCH (08:09)
[2021-11-07] MEDS: polyethylene glycoL 3350 17 GM POWD.PACK PO SCH (08:09)
[2021-11-07 08:19] LABS: Glucose,Whole Blood 94 mg/dL (75-99)
[2021-11-07] MEDS: COLLAGENASE 250 UNIT/GM OINTMENT 30 GM TUBE TOPICAL SCH (08:22)
[2021-11-07] MEDS: MAGNESIUM OXIDE 400 MG TAB PO SCH (08:22)
[2021-11-07] MEDS: INSULIN ASPART (NovoLOG) 100 UNIT/ML VIAL SQ SCH ×4 (08:22→20:58)
[2021-11-07] MEDS: LACTATED RINGERS 1,000 ML IV SCH ×3 (08:22→11:51)
--- NOTE | 2021-11-07 08:54 | P.PN ---
Progress Note - Text Progress Note Date: 11/07/21 Pt s/e. history and physical reviewed. questions anwered. Plan for lle aka today. No concerns. Labs reviewed. K replaced. Consent is signed. Plan for Left ABOVE knee amputation today.
[2021-11-07] MEDS ORDERED: PROPOFOL 10 MG/ML 20 ML VIAL IV ONE (11:12)
[2021-11-07] MEDS ORDERED: fentaNYL (PF) 50 MCG/ML 2 ML AMP ONE (11:12)
[2021-11-07] MEDS ORDERED: SUCCINYLCHOLINE CHLORIDE 100 MG/5 ML SYR IV ONE (11:12)
[2021-11-07] MEDS ORDERED: LIDOCAINE 2% INJ 20 MG/ML (2 ML VIAL) ONE (11:12)
[2021-11-07] MEDS ORDERED: PHENYLEPHRINE-0.9% NACL SYG 1,000 MCG/10 ML SYRINGE ONE (11:12)
--- NOTE | 2021-11-07 12:44 | P.OP ---
Date of Procedure: 11/07/21 Description of Procedure: Preoperative diagnosis: Left lower extremity nonhealing wounds, peripheral a rterial disease, infected hardware Postoperative diagnosis: Same Procedure: Left Above-knee amputation Surgeon: Ekaterina Colby D.O. Anesthesia: General endotracheal EBL: 75 mL IV fluids: See records Urine output: See records Drains: None Complications: None immediately apparent Condition: Stable to recovery Operative indication and findings: The patient is a 71-year-old female who previously underwent ankle fixation and subsequent had nonhealing. She then had a femoral to below-knee popliteal bypass with in situ vein. It is no longer patent and she has now issues with infection at the level of the exposed hardware. Given these findings options were discussed and she decided on going forward with an above-knee amputation. Risks and benefits of the procedure were discussed. She seemingly understood and was willing to proceed as such Procedure in detail: The patient was taken to the operative suite and placed in supine position. After adequate anesthesia, the left lower extremity was prepped and draped in usual sterile fashion. A preprocedure timeout was performed, all parties were in agreement. Skin marker was utilized and the incision was marked approximately 5 cm proximal to the knee joint. Skin incision was performed and deepened through the subcutaneous tissues to the muscular fascia. The saphenous vein was identified and ligated with 2-0 silk and divided. The muscle groups of the anterior and medial thigh were divided with electrocautery at the same level of the skin incision. The muscle itself appeared dusky with minimal contractility. It was atrophied in appearance The neurovascular bundle was identified on the medial aspect of the thigh. The artery and veins were isolated and suture ligated using 2-0 silk ligature. The femur was then cleared of its periosteal tissue is elevated roughly 5 cm proximally and was divided with the oscillating saw. The posterior thigh muscles were then divided with electrocautery. The proximal end of the mercado sected femur was smoothed with a rasp. The amputation site was then copiously irrigated. Hemostasis was controlled with electrocautery. The periosteum was reapproximated using interrupted sutures of 2-0 Vicryl. The fascia was reapproximated with interrupted [id number] sutures of 2-0 Vicryl. The skin was reapproximated with cristian. A dressing with gauze, Kerlix and a bandage were placed. The patient tolerated the procedure well and was transported to PACU in stable condition
[2021-11-07 13:12] LABS: Glucose,Whole Blood 84 mg/dL (75-99)
[2021-11-07] MEDS ORDERED: HYDROmorphone 0.5 MG/0.5 ML SYRINGE IVP ONE (13:12)
--- NOTE | 2021-11-07 13:35 | P.CN ---
Psychiatric Consult - . Consult date: 11/07/21 Consult:: Patient's chart was reviewed. This provider attempted to evaluate the patient at approximately 1:30 pm. Patient currently not back in her room and just underwent procedure for Left Above-Knee Amputation. Discussed with patient's nurse, that likely due to anaesthesia, the patient may not be appropriate to interview today. We will reattempt psychiatric evaluation tomorrow. Dre Castillo MD 11/07/21 13:33
--- NOTE | 2021-11-07 14:16 | P.PN ---
Subjective Hospital course: Patient is a very pleasant 70-year-old female with a past medical history of CAD with previous ID, hypertension, hyperlipidemia, stage III chronic kidney disease, diabetes mellitus, status post ORIF of left ankle on 06/14/21 resulting in delayed wound healing and also radiation secondary to patient's severe peripheral arterial occlusive disease, patient has since underwent left femoral popliteal bypass graft and femoral artery angioplasty on 07/29/21 and is now returning to the emergency department secondary to this nonhealing left ankle wound/ulceration. Patient underwent full evaluation in the emergency department and was found to have leukocytosis with WBC count of 15.6, microchromic hypochr omic anemia with hemoglobin of 9.7, Renal function consistent with stage III CKD with BUN 42, creatinine 1.33, and GFR 40 (baseline creatinine 1.5). X-ray left ankle showing no focal bone distraction and no signs of osteomyelitis with calcaneal spurring and evidence of previous internal fixation intact. X-ray left foot showing no evidence of osteomyelitis, no fracture and positive for atherosclerotic disease. EKG completed showing normal sinus rhythm at 70 bpm with no noted T-wave or ST abnormalities. Wound cultures obtained and sent to lab for analysis. Patient was started on IV antibiotic Invanz and admitted under our services with consultation to vascular surgery, infectious disease and wound care. Arterial Doppler of left lower extremity revealing bypass graft with no flow. Vascular surgery discussed options with patient including redoing bypass graft with CryoVein versus above-knee amputation or no interventions and palliative care. Wound culture positive for ESBL with Staphylococcus aureus, Klebsiella pneumoniae, and Strep agalactiae. She remains on IV antibiotics with Invanz. Physical exam: Patient seen and fully evaluated at bedside this morning. Vascular surgery discussed the case with the patient and the plan to proceed with left above-knee amputation today. Patient denies any chest pain or shortness of breath Vital signs reviewed and stable. General: Nontoxic, no distress and appears stated age. Derm: Skin warm and dry, normal coloration for ethnicity. 3 cm ulceration the left lateral ankle as well as ulceration to the dorsal surface of left foot/ankle region, appears to be in healing stages with no surrounding erythema or necrotic tissue. Head: Atraumatic, normocephalic and symmetric. Eyes: EOMs intact, no lid lag, and anicteric sclera Mouth: no lip lesions, mucus membranes moist Cardiovascular: regular rate and rhythm with normal S1S2, systolic murmur, positive posterior tibial pulses bilaterally, and cap refill < 2 seconds. Lungs: Respirations even, regular, and unlabored on room air. Lungs CTA bilaterally, no rhonchi, no rales, no wheezing, and no accessory muscle usage. Abdominal: soft, nontender to palpation, no guarding, no appreciable organomegaly Ext: ROM intact. No gross muscle atrophy, no edema, no contractures Neuro: Speech clear, face symmetrical and CN II-XII grossly intact with no noted focal neuro deficits Psych: Alert and oriented to person, place, time, and situation. Appropriate and pleasant affect. Assessment and Plan of Care: Nonhealing ulcer of the left ankle and dorsal surface of left foot status post ORIF of left ankle on 06/14/21 Severe peripheral arterial occlusive disease status post left femoral popliteal bypass graft and femoral artery angioplasty 07/29/21 -IV antibiotics: Invanz -Wound culture positive for ESBL with Staphylococcus aureus, Klebsiella pneumoniae, and Strep agalactiae. -Blood culture showing no growth -Infectious disease following, appreciate further recommendations. -Wound care following. -Vascular surgery following, vascular surgery discussed plan for above-knee amputation -Symptomatic care and pain management. -Plavix and hold for upcoming surgery Hypokalemia, replaced Hypertension -Monitor vital signs and continue daily medication regimen with amlodipine. Hyperlipidemia -Continue daily medication regimen with atorvastatin 20 mg nightly. Stage III chronic kidney disease -Stable, we will continue to monitor with repeat a.m. labs Diabetes mellitus -Glycemic protocol with NovoLog sliding scale. Anemia of chronic disease Chronic Thrombocytosis -Stable at baseline with hemoglobin 7.1 and platelet count of 458. We will continue to monitor with repeat a.m. labs. CODE STATUS: Full code DVT prophylaxis: Heparin Discussed with: Patient, patient sister and RN Anticipated discharge date: Clinical course to determine Objective - Vital Signs Vital signs: Vital Signs Temp 97.8 F 11/07/21 12:50 Pulse 77 11/07/21 13:20 Resp 16 11/07/21 13:20 BP 145/70 11/07/21 13:20 Pulse Ox 100 11/07/21 13:20 FiO2 Intake & Output 11/06/21 11/07/21 11/07/21 18:59 06:59 18:59 Intake Total 310 900 800 Output Total 850 550 600 Balance -540 350 200 Intake: IV 800 Intake, IV Titration 900 Amount Sodium Chloride 0.9% 1, 900 000 ml @ 75 mls/hr IV . [id number] [facility] Rx#:[id number] Blood Product 310 Rc As-1 Unit 310 [id number] Output: Urine 850 550 450 Estimated Blood Loss 150 Other: Voiding Method Indwelling Catheter Indwelling Catheter Indwelling Catheter # Bowel Movements 1 - Labs CBC & Chem 7: 11/07/21 04:15 11/07/21 04:15 Labs: Abnormal Lab Results - Last 24 Hours (Table) 11/07/21 11/07/21 Range/Units 04:15 04:15 Hgb 9.5 L (11.4-16.0) gm/dL Hct 30.8 L (34.0-46.0) % MCH 24.8 L (25.0-35.0) pg RDW 15.9 H (11.5-15.5) % Plt Count 571 H (150-450) k/uL Potassium 3.2 L (3.5-5.1) mmol/L Chloride 108 H (98-107) mmol/L Calcium 8.2 L (8.4-10.2) mg/dL
[2021-11-07] MEDS: ERTAPENEM 1 GM in SODIUM CHLORIDE 0.9% 50 ML IVPB SCH (14:20)
[2021-11-07 16:34] LABS: Glucose,Whole Blood 88 mg/dL (75-99)
[2021-11-07] MEDS: HYDROcodone/APAP 5-325MG 1 EACH TAB PO PRN (20:00)
[2021-11-07] MEDS: ATORVASTATIN 20 MG TAB PO SCH (20:42)
[2021-11-07] MEDS: MELATONIN 5 MG TABLET PO SCH (20:42)
[2021-11-07] MEDS: amLODIPine 10 MG TAB PO SCH (20:42)
[2021-11-07 21:41] LABS: Glucose,Whole Blood 86 mg/dL (75-99)
[2021-11-08] MEDS: HEPARIN SODIUM,PORCINE/PF 5,000 UNIT/0.5 ML SYRINGE SQ SCH ×4 (00:16→23:29)
[2021-11-08] MEDS: SODIUM CHLORIDE 0.9% 1,000 ML IV SCH ×2 (05:15→16:17)
[2021-11-08 07:08] LABS: Glucose,Whole Blood 85 mg/dL (75-99)
--- NOTE | 2021-11-08 07:30 | P.PN ---
Subjective Progress Note Date: 11/07/21 Principal diagnosis: Left heel ankle wound and cellulitis Patient is a 71-year-old female with a past medical history significant for chronic nonhealing wound to the left foot ankle area and this patient did have a surgery followed by revascularization to the left leg now has been brought back to the hospital concerning for infection to the left foot and ankle area with a nonhealing wound. Patient is status post left jhnjc-oxe-tuak amputation completed on 11/07/2021 On today's evaluation that is 11/07/2021 the patient is afebrile, the patient is breathing comfortably on room air, the patient came to the left AKA is controlled , the patient denies chest pain shortness of breath or cough no abdominal pain and no diarrhea Objective - Vital Signs Vital signs: Vital Signs Temp 97.8 F 11/07/21 12:50 Pulse 77 11/07/21 13:20 Resp 16 11/07/21 13:20 BP 145/70 11/07/21 13:20 Pulse Ox 100 11/07/21 13:20 FiO2 Intake & Output 11/06/21 11/07/21 11/07/21 18:59 06:59 18:59 Intake Total 310 900 800 Output Total 850 550 600 Balance -540 350 200 Intake: IV 800 Intake, IV Titration 900 Amount Sodium Chloride 0.9% 1, 900 000 ml @ 75 mls/hr IV . [id number] [facility] Rx#:[id number] Blood Product 310 Rc As-1 Unit 310 [id number] Output: Urine 850 550 450 Estimated Blood Loss 150 Other: Voiding Method Indwelling Catheter Indwelling Catheter Indwelling Catheter # Bowel Movements 1 - Exam GENERAL DESCRIPTION: An elderly female lying in bed in no distress RESPIRATORY SYSTEM: Unlabored breathing , decreased breath sounds at bases HEART: S1 S2 regular rate and rhythm , ABDOMEN: Soft , no tenderness EXTREMITIES: Left AKA surgical site is dressed - Labs CBC & Chem 7: 11/07/21 04:15 11/07/21 04:15 Labs: Abnormal Lab Results - Last 24 Hours (Table) 11/07/21 11/07/21 Range/Units 04:15 04:15 Hgb 9.5 L (11.4-16.0) gm/dL Hct 30.8 L (34.0-46.0) % MCH 24.8 L (25.0-35.0) pg RDW 15.9 H (11.5-15.5) % Plt Count 571 H (150-450) k/uL Potassium 3.2 L (3.5-5.1) mmol/L Chloride 108 H (98-107) mmol/L Calcium 8.2 L (8.4-10.2) mg/dL Assessment and Plan (1) Wound infection after surgery Current Visit: No Status: Acute Code(s): T81.49XA - INFECTION FOLLOWING A PROCEDURE, OTHER SURGICAL SITE, INIT SNOMED Code(s): 32155431 Plan: 1patient with a chronic nonhealing wound to the left ankle area in this patient did have multiple surgeries also left femoropopliteal bypass surgery now presented to hospital with nonhealing wound has been there for couple of months now patient did have elevated white count admission however no fever he did have multiple wounds to the left heel left groin area with some necrotic tissue no significant surrounding redness underlying infection less likely but not entirely excluded 2local cultures are growing ESBL Klebsiella and MSSA and strep. 3 vascular surgery is following the patient and is recommending possible amputation versus palliative care, patient seemed have agreed to undergo amputation of the left leg and is status post left above the knee amputation completed on 11/07/2021 4- patient will continue with the Invanz 1 g daily for another few days perioperatively however no plan for long-term IV antibiotic therapy Time with Patient: Less than 30
[2021-11-08] MEDS: INSULIN ASPART (NovoLOG) 100 UNIT/ML VIAL SQ SCH ×4 (08:15→20:15)
[2021-11-08] MEDS: MAGNESIUM OXIDE 400 MG TAB PO SCH (08:52)
[2021-11-08] MEDS: TAMSULOSIN 0.4 MG CAP.ER.24H PO SCH (08:52)
[2021-11-08] MEDS: LACTULOSE 20 GM/30 ML CUP PO SCH ×2 (08:52→16:10)
[2021-11-08] MEDS: ERTAPENEM 1 GM in SODIUM CHLORIDE 0.9% 50 ML IVPB SCH (08:53)
[2021-11-08] MEDS: polyethylene glycoL 3350 17 GM POWD.PACK PO SCH (08:54)
[2021-11-08] MEDS: COLLAGENASE 250 UNIT/GM OINTMENT 30 GM TUBE TOPICAL SCH (09:07)
[2021-11-08 09:34] LABS: African American GFR (CKD) 106.4 (60.0-200.0); BUN/Creat Ratio 22.35 Ratio (12.00-20.00); Blood Urea Nitrogen 13.1 mg/dL (9.0-27.0); Calcium 8.1 mg/dL (8.7-10.3); Carbon Dioxide 22.2 mmol/L (20.0-27.5); Magnesium 1.7 mg/dL (1.5-2.4); Non-African American GFR(CKD) 91.8 (60.0-200.0); Potassium 3.7 mmol/L (3.5-5.5)
[2021-11-08 10:20] LABS: NRBC Per 100 WBC 0 /100 WBCS (0.0-0.0)
[2021-11-08 10:21] LABS: HCT 22.4 % (37.2-46.3); HGB 6.9 g/dL (12.0-15.0); MCH 24.6 pg (27.0-32.0); MCHC 30.8 g/dL (32.0-37.0); MCV 79.7 fL (80.0-97.0); Mean Platelet Volume 9.3 fL (9.5-12.2); Platelet Count 452 X 10*3/uL (140-440); RBC 2.81 X 10*6/uL (4.10-5.20); WBC 13.17 X 10*3/uL (4.50-10.00)
[2021-11-08 10:22] LABS: Basophils # (M) 0 X 10*3/uL (0.00-0.10); Eosinophils # (M) 0 X 10*3/uL (0.04-0.35); Lymphocytes # (M) 0.53 X 10*3/uL (0.90-5.00); Monocytes # (M) 0.13 X 10*3/uL (0.20-1.00); Neutrophils # (M) 12.51 X 10*3/uL (2.00-8.90); Neutrophils % (M) 95 %
--- NOTE | 2021-11-08 10:51 | P.PN ---
Subjective Progress Note Date: 11/08/21 Principal diagnosis: Peripheral arterial disease, nonhealing wounds Patient is seen and examined lying in bed. She is postop day #1 for left ecrqp-lbl-[id number] amputation. She states her pain is well controlled. She is complaining of some lower back pain. She's been afebrile. Patient had a drop in her hemoglobin from 9.5 yesterday to 6.9. Potassium improved from 3.2-3.7 today. Objective - Vital Signs Vital signs: Vital Signs Temp 99.8 F H 11/08/21 07:19 Pulse 98 11/08/21 07:19 Resp 17 11/08/21 07:19 BP 134/69 11/08/21 07:19 Pulse Ox 97 11/08/21 07:19 FiO2 Intake & Output 11/07/21 11/08/21 11/08/21 18:59 06:59 18:59 Intake Total 1145 1140 120 Output Total 900 700 Balance 245 440 120 Intake: IV 800 Intake, IV Titration 225 900 Amount Sodium Chloride 0.9% 1, 225 900 000 ml @ 75 mls/hr IV . [id number] [facility] Rx#:[id number] Oral 120 240 120 Output: Urine 750 700 Estimated Blood Loss 150 Other: Voiding Method Indwelling Catheter Indwelling Catheter Indwelling Catheter # Voids 700 # Bowel Movements 0 - Exam General appearance: The patient is alert, oriented, appears in no acute distress. HET: Head is normocephalic and atraumatic. Neck: Supple without lymphadenopathy. Trachea midline. Heart: S1 S2. Regular rate and rhythm. Lungs: Clear to auscultation bilaterally. Abdomen: Soft, nontender, nondistended. Extremities: Left hqybe-fgx-wrcr amputation stump with dressing clean dry and intact. Incision well approximated with cristian with minimal serosanguineous drainage. Right lower extremity with soft mediboot in place. Neurological: No focal deficits. Alert and oriented 3. - Labs CBC & Chem 7: 11/08/21 05:48 11/08/21 05:48 Labs: Abnormal Lab Results - Last 24 Hours (Table) 11/05/21 11/08/21 11/08/21 Range/Units 11:24 05:48 05:48 WBC 13.17 H (4.50-10.00) X 10*3/uL RBC 2.81 L (4.10-5.20) X 10*6/uL Hgb 6.9 L* (12.0-15.0) g/dL Hct 22.4 L (37.2-46.3) % MCV 79.7 L (80.0-97.0) fL MCH 24.6 L (27.0-32.0) pg MCHC 30.8 L (32.0-37.0) g/dL RDW 16.0 H (11.5-14.5) % Plt Count 452 H (140-440) X 10*3/uL Plt Count Comment INCREASED A MPV 9.3 L (9.5-12.2) fL Neutrophils # (Manual) 12.51 H (2.00-8.90) X 10*3/uL Lymphocytes # (Manual) 0.53 L (0.90-5.00) X 10*3/uL Monocytes # (Manual) 0.13 L (0.20-1.00) X 10*3/uL Eosinophils # (Manual) 0 L (0.04-0.35) X 10*3/uL BUN/Creatinine Ratio 22.35 H (12.00-20.00) Ratio Calcium 8.1 L (8.7-10.3) mg/dL Crossmatch See Detail Assessment and Plan Assessment: 1. Postop day #1 Left vapuq-sez-eqxd amputation 2. Chronic Nonhealing wounds to left lower extremity 3. Acute blood loss anemia on chronic anemia 4. Peripheral arterial disease status post left femoral popliteal bypass with in situ vein and left common femoral artery thrombectomy 5. Former smoker 6. Depression Plan: 1. Transfuse 1 unit PRBC 2. Physical/occupational therapy consulted 3. Daily CBC, BMP 4. Consistent carbohydrate diet 5. 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 Continue with pain management 7. Psychiatry consulted for depression, lack of motivation/appetite 8. Daily dressing change with Adaptic, 4 x 4 and Kerlix The impression and plan of care has been dictated as directed. Dr. Colby I performed a history and examination of this patient, discussed the same with the dictator. I agree with the dictator's note ,documented as a scribe. Any additional findings or plans will be noted.
[2021-11-08 11:32] LABS: Glucose,Whole Blood 140 mg/dL (75-99)
--- NOTE | 2021-11-08 12:46 | P.CN ---
Psychiatric Consult - . Consult date: 11/08/21 Consult:: 11/08/21 12:45 IDENTIFYING DATA: This patient is a , retired, 71-year-old female with no significant psychiatric history presented to the hospital for nonhealing ulcer. HISTORY OF PRESENT ILLNESS: The patient presented to the hospital on 10/29/2021, brought into the hospital for nonhealing ulcer. The patient has had a prolonged hospitalization and underwent a left above-knee petition yesterday. Prior to her surgery, psychiatrist been consulted for evaluation of depression. Upon psychiatric evaluation, the patient is currently endorsing low mood secondary to losing her left leg. However, the patient does not report any significant symptoms of depression or anxiety at this time. She does report that she can eat more however states that she has not been feeling particularly depressed. She reports no suicidal or homicidal ideation, intention, and/or plan. She denies any auditory or visual hallucinations. She expresses future and goal orientation with a desire to be reunited with her pet cat "Elias." The patient reports no previous psychiatric history. She reports no previous history of medication management. She is currently not expressing any desire to start medications to help with mood or appetite or sleep. PAST PSYCHIATRIC HISTORY: Patient has no significant psychiatric history. Patient denies being on any psychiatric medications. Patient denies any previous psychiatric hospitalizations. Patient denies any psychiatric outpatient follow- up. Patient denies any history of suicide attempts in the past. PAST MEDICAL HISTORY: Past Medical History: Diabetes Mellitus, Hyperlipidemia, Hypertension, Myocardial Infarction ([place]), Vascular Disorder Additional Past Medical History / Comment(s): DM type 2, pressure ulcers to the left foot, generalized weakness, non ambulatory, anemia Last Myocardial Infarction Date:: 1989 History of Any Multi-Drug Resistant Organisms: None Reported Date of last positivie culture/infection: 09/01/21 MDRO Source:: ESBL URINE Past Surgical History: No Surgical Hx Reported, Orthopedic Surgery Additional Past Surgical History / Comment(s): "Female surgery to help with .". vascular surgery to right leg, left ankle fracture w/displacement, Past Anesthesia/Blood Transfusion Reactions: No Reported Reaction Past Psychological History: No Psychological Hx Reported Smoking Status: Former smoker Past Alcohol Use History: None Reported, Rare Additional Past Alcohol Use History / Comment(s): Quit smoking 28 yrs ago. Past Drug Use History: None Reported Additional Drug Use History / Comment(s): "Pot once in a great while". ALLERGIES: Codeine CHEMICAL DEPENDENCY HISTORY: Patient reports no significant substance use history. She reports it has been more than 30 years since she last used marijuana. FAMILY PSYCHIATRIC/SUBSTANCE USE HISTORY: No reported history. SOCIAL HISTORY: Patient is . She lives with a roommate and her cat. MENTAL STATUS EXAM: General Appearance: Patient appears to be stated age is alert, pleasant, and cooperative. Patient appears to have fair hygiene and grooming wearing hospital gown with fair eye contact. Behavior: Patient is calmly lying in bed without any agitated behavior. Speech: Patient's speech is fluent and nonpressured. Mood/Affect: Patient reports their mood is "little down but you understand", affect is congruent and constricted Suicidality/Homicidality: Patient reports no suicidal or homicidal ideation, intention, and/or plan. Perceptions: Patient denies any visual hallucinations and denies any auditory hallucinations Though content/process: There is no evidence of any delusional thought content and thought process is linear and goal-directed. Memory and concentration: AOX3, grossly intact for the purposes of this session. Can spell "WORLD" backwards Judgment and insight: Fair Vital Signs Temp 98.2 F 11/08/21 12:24 Pulse 90 11/08/21 12:00 Resp 18 11/08/21 12:24 BP 150/72 11/08/21 12:24 Pulse Ox 100 11/08/21 12:24 FiO2 Intake & Output 11/07/21 11/08/21 11/08/21 18:59 06:59 18:59 Intake Total 1145 1140 120 Output Total 900 700 Balance 245 440 120 Intake: IV 800 Intake, IV Titration 225 900 Amount Sodium Chloride 0.9% 1, 225 900 000 ml @ 75 mls/hr IV . [id number] [facility] Rx#:[id number] Oral 120 240 120 Blood Product 0 Unit 0 Output: Urine 750 700 Estimated Blood Loss 150 Other: Voiding Method Indwelling Catheter Indwelling Catheter Indwelling Catheter # Voids 700 # Bowel Movements 0 Laboratory Results - Last 24 Hours 11/05/21 11/07/21 11/07/21 11:24 13:11 16:33 WBC RBC Hgb Hct MCV MCH MCHC RDW Plt Count Plt Count Comment MPV Absolute Nucleated RBC Neutrophils % (Manual) Lymphocytes % (Manual) Monocytes % (Manual) Basophils % (Manual) Neutrophils # (Manual) Lymphocytes # (Manual) Monocytes # (Manual) Eosinophils # (Manual) Basophils # (Manual) NRBC/100 WBC Diff Sodium Potassium Chloride Carbon Dioxide Anion Gap BUN Creatinine Est GFR (CKD-EPI)AfAm Est GFR (CKD-EPI)NonAf BUN/Creatinine Ratio Glucose POC Glucose (mg/dL) 84 88 POC Glu Cytology Teacher ID Sharon Hayward, Rosita Calcium Magnesium Blood Type O Positive Blood Type Recheck O Pos Bld Type Recheck Status No Antibody Screen NEGATIVE Crossmatch See Detail Spec Expiration Date 11/08/2021 - 232311/07/21 11/08/21 11/08/21 21:20 05:48 05:48 WBC 13.17 H RBC 2.81 L Hgb 6.9 L* Hct 22.4 L MCV 79.7 L MCH 24.6 L MCHC 30.8 L RDW 16.0 H Plt Count 452 H Plt Count Comment INCREASED A MPV 9.3 L Absolute Nucleated RBC 0 Neutrophils % (Manual) 95 Lymphocytes % (Manual) 4 Monocytes % (Manual) 1 Basophils % (Manual) 0 Neutrophils # (Manual) 12.51 H Lymphocytes # (Manual) 0.53 L Monocytes # (Manual) 0.13 L Eosinophils # (Manual) 0 L Basophils # (Manual) 0 NRBC/100 WBC Diff 0 Sodium 142 Potassium 3.7 Chloride 109 Carbon Dioxide 22.2 Anion Gap 11.00 BUN 13.1 Creatinine 0.6 Est GFR (CKD-EPI)AfAm 106.4 Est GFR (CKD-EPI)NonAf 91.8 BUN/Creatinine Ratio 22.35 H Glucose 82 POC Glucose (mg/dL) 86 POC Glu Cytology Teacher ID Chiki, Marjorie Calcium 8.1 L Magnesium 1.7 Blood Type Blood Type Recheck Bld Type Recheck Status Antibody Screen Crossmatch Spec Expiration Date 11/08/21 11/08/21 07:06 11:31 WBC RBC Hgb Hct MCV MCH MCHC RDW Plt Count Plt Count Comment MPV Absolute Nucleated RBC Neutrophils % (Manual) Lymphocytes % (Manual) Monocytes % (Manual) Basophils % (Manual) Neutrophils # (Manual) Lymphocytes # (Manual) Monocytes # (Manual) Eosinophils # (Manual) Basophils # (Manual) NRBC/100 WBC Diff Sodium Potassium Chloride Carbon Dioxide Anion Gap BUN Creatinine Est GFR (CKD-EPI)AfAm Est GFR (CKD-EPI)NonAf BUN/Creatinine Ratio Glucose POC Glucose (mg/dL) 85 140 H POC Glu Cytology Teacher ID Valente, Rosita Valente, Rosita Calcium Magnesium Blood Type Blood Type Recheck Bld Type Recheck Status Antibody Screen Crossmatch Spec Expiration Date IMPRESSIONS: Adjustment disorder with depressed mood PLAN: -At this time patient DOES NOT meet criteria for inpatient psychiatric admission. -Delirium precautions recommended with patient including - avoiding use of narcotics and [employer]USHER sedatives, limit anticholinergic medications when possible, frequent re-orientation, minimize use of restraints, open window shades during the day and close them at night -Would recommend the following medication changes/additions: The patient would prefer not to start any medications at this time. -Approximately 20 minutes were spent providing the patient with reflective listening and supportive psychotherapy. -Psychiatry will sign off at this point, please contact with any questions. 11/08/21 12:45
--- NOTE | 2021-11-08 13:15 | P.PN ---
Subjective Hospital course: Patient is a very pleasant 70-year-old female with a past medical history of CAD with previous [place], hypertension, hyperlipidemia, stage III chronic kidney disease, diabetes mellitus, status post ORIF of left ankle on 06/14/21 resulting in delayed wound healing and also radiation secondary to patient's severe peripheral arterial occlusive disease, patient has since underwent left femoral popliteal bypass graft and femoral artery angioplasty on 07/29/21 and is now returning to the emergency department secondary to this nonhealing left ankle wound/ulceration. Patient underwent full evaluation in the emergency department and was found to have leukocytosis with WBC count of 15.6, microchromic hypochr omic anemia with hemoglobin of 9.7, Renal function consistent with stage III CKD with BUN 42, creatinine 1.33, and GFR 40 (baseline creatinine 1.5). X-ray left ankle showing no focal bone distraction and no signs of osteomyelitis with calcaneal spurring and evidence of previous internal fixation intact. X-ray left foot showing no evidence of osteomyelitis, no fracture and positive for atherosclerotic disease. EKG completed showing normal sinus rhythm at 70 bpm with no noted T-wave or ST abnormalities. Wound cultures obtained and sent to lab for analysis. Patient was started on IV antibiotic Invanz and admitted under our services with consultation to vascular surgery, infectious disease and wound care. Arterial Doppler of left lower extremity revealing bypass graft with no flow. Vascular surgery discussed options with patient including redoing bypass graft with CryoVein versus above-knee amputation or no interventions and palliative care. Wound culture positive for ESBL with Staphylococcus aureus, Klebsiella pneumoniae, and Strep agalactiae. She remains on IV antibiotics with Invanz. 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 Interval history: It was examined at the bedside. She is alert oriented 2. Most likely patient is delirious from surgery and pain medication. Hemoglobin dropped to 6.91 unit of packed RBCs ordered. Patient denies any chest pain or shortness of breath Physical exam: Patient seen and fully evaluated at bedside this morning. Vascular surgery discussed the case with the patient and the plan to proceed with left above-knee amputation today. Patient denies any chest pain or shortness of breath Vital signs reviewed and stable. General: Nontoxic, no distress and appears stated age. Derm: Status post left AKA Head: Atraumatic, normocephalic and symmetric. Eyes: EOMs intact, no lid lag, and anicteric sclera Mouth: no lip lesions, mucus membranes moist Cardiovascular: regular rate and rhythm with normal S1S2, systolic murmur, positive posterior tibial pulses bilaterally, and cap refill < 2 seconds. Lungs: Respirations even, regular, and unlabored on room air. Lungs CTA bilaterally, no rhonchi, no rales, no wheezing, and no accessory muscle usage. Abdominal: soft, nontender to palpation, no guarding, no appreciable organomegaly Ext: ROM intact. No gross muscle atrophy, no edema, no contractures Neuro: Speech clear, face symmetrical and CN II-XII grossly intact with no noted focal neuro deficits Psych: Alert and oriented to person, place, time, and situation. Appropriate and pleasant affect. Assessment and Plan of Care: Nonhealing ulcer of the left ankle and dorsal surface of left foot status post ORIF of left ankle on 06/14/21 Severe peripheral arterial occlusive disease status post left femoral popliteal bypass graft and femoral artery angioplasty 07/29/21 -IV antibiotics: Invanz per infectious disease -Wound culture positive for ESBL with Staphylococcus aureus, Klebsiella pneu moniae, and Strep agalactiae. 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 -Resume Plavix per vascular surgery Postsurgical acute blood loss anemia secondary to surgery -status post transfusion 1 unit of packed RBCs November 08 -Monitor CBC Anemia of chronic disease Hypertension -Monitor vital signs and continue daily medication regimen with amlodipine. Hyperlipidemia -Continue daily medication regimen with atorvastatin 20 mg nightly. Stage III chronic kidney disease -Stable, we will continue to monitor with repeat a.m. labs Depression -Adjustment disorder with depressed mood -Per psychiatry patient declined antidepressants. -Patient was evaluated by psychiatry Diabetes mellitus -Glycemic protocol with NovoLog sliding scale. Chronic Thrombocytosis -Continue to monitor CODE STATUS: Full code DVT prophylaxis: Heparin Objective - Vital Signs Vital signs: Vital Signs Temp 98.2 F 11/08/21 12:24 Pulse 90 11/08/21 12:00 Resp 18 11/08/21 12:24 BP 150/72 11/08/21 12:24 Pulse Ox 100 11/08/21 12:24 FiO2 Intake & Output 11/07/21 11/08/21 11/08/21 18:59 06:59 18:59 Intake Total 1145 1140 120 Output Total 900 700 Balance 245 440 120 Intake: IV 800 Intake, IV Titration 225 900 Amount Sodium Chloride 0.9% 1, 225 900 000 ml @ 75 mls/hr IV . [id number] [facility] Rx#:[id number] Oral 120 240 120 Blood Product 0 Unit 0 Output: Urine 750 700 Estimated Blood Loss 150 Other: Voiding Method Indwelling Catheter Indwelling Catheter Indwelling Catheter # Voids 700 # Bowel Movements 0 - Labs CBC & Chem 7: 11/08/21 05:48 11/08/21 05:48 Labs: Abnormal Lab Results - Last 24 Hours (Table) 11/05/21 11/08/21 11/08/21 Range/Units 11:24 05:48 05:48 WBC 13.17 H (4.50-10.00) X 10*3/uL RBC 2.81 L (4.10-5.20) X 10*6/uL Hgb 6.9 L* (12.0-15.0) g/dL Hct 22.4 L (37.2-46.3) % MCV 79.7 L (80.0-97.0) fL MCH 24.6 L (27.0-32.0) pg MCHC 30.8 L (32.0-37.0) g/dL RDW 16.0 H (11.5-14.5) % Plt Count 452 H (140-440) X 10*3/uL Plt Count Comment INCREASED A MPV 9.3 L (9.5-12.2) fL Neutrophils # (Manual) 12.51 H (2.00-8.90) X 10*3/uL Lymphocytes # (Manual) 0.53 L (0.90-5.00) X 10*3/uL Monocytes # (Manual) 0.13 L (0.20-1.00) X 10*3/uL Eosinophils # (Manual) 0 L (0.04-0.35) X 10*3/uL BUN/Creatinine Ratio 22.35 H (12.00-20.00) Ratio POC Glucose (mg/dL) (75-99) mg/dL Calcium 8.1 L (8.7-10.3) mg/dL Crossmatch See Detail 11/08/21 Range/Units 11:31 WBC (4.50-10.00) X 10*3/uL RBC (4.10-5.20) X 10*6/uL Hgb (12.0-15.0) g/dL Hct (37.2-46.3) % MCV (80.0-97.0) fL MCH (27.0-32.0) pg MCHC (32.0-37.0) g/dL RDW (11.5-14.5) % Plt Count (140-440) X 10*3/uL Plt Count Comment MPV (9.5-12.2) fL Neutrophils # (Manual) (2.00-8.90) X 10*3/uL Lymphocytes # (Manual) (0.90-5.00) X 10*3/uL Monocytes # (Manual) (0.20-1.00) X 10*3/uL Eosinophils # (Manual) (0.04-0.35) X 10*3/uL BUN/Creatinine Ratio (12.00-20.00) Ratio POC Glucose (mg/dL) 140 H (75-99) mg/dL Calcium (8.7-10.3) mg/dL Crossmatch
[2021-11-08] MEDS: HYDROcodone/APAP 5-325MG 1 EACH TAB PO PRN (14:12)
[2021-11-08 16:19] LABS: Glucose,Whole Blood 116 mg/dL (75-99)
[2021-11-08 18:28] LABS: Anisocytosis Slight; HCT 27.3 % (34.0-46.0); HGB 8.7 gm/dL (11.4-16.0); Hypochromasia Moderate; MCH 26.9 pg (25.0-35.0); MCHC 31.9 g/dL (31.0-37.0); MCV 84.2 fL (80.0-100.0); Platelet Count 445 k/uL (150-450); Poikilocytosis Slight; RBC 3.24 m/uL (3.80-5.40); RDW 17.2 % (11.5-15.5); WBC 12.4 k/uL (3.8-10.6)
[2021-11-08] MEDS: MELATONIN 5 MG TABLET PO SCH (19:27)
[2021-11-08] MEDS: ATORVASTATIN 20 MG TAB PO SCH (19:27)
[2021-11-08] MEDS: amLODIPine 10 MG TAB PO SCH (19:27)
[2021-11-08 19:52] LABS: Glucose,Whole Blood 120 mg/dL (75-99)
[2021-11-09 06:38] LABS: Glucose,Whole Blood 101 mg/dL (75-99)
[2021-11-09] MEDS: INSULIN ASPART (NovoLOG) 100 UNIT/ML VIAL SQ SCH ×4 (07:20→20:56)
[2021-11-09] MEDS: COLLAGENASE 250 UNIT/GM OINTMENT 30 GM TUBE TOPICAL SCH (07:20)
[2021-11-09] MEDS: MAGNESIUM OXIDE 400 MG TAB PO SCH (07:27)
[2021-11-09] MEDS: polyethylene glycoL 3350 17 GM POWD.PACK PO SCH ×2 (07:27→07:38)
[2021-11-09] MEDS: LACTULOSE 20 GM/30 ML CUP PO SCH ×3 (07:27→16:34)
[2021-11-09] MEDS: ERTAPENEM 1 GM in SODIUM CHLORIDE 0.9% 50 ML IVPB SCH (07:27)
[2021-11-09] MEDS: SODIUM CHLORIDE 0.9% 1,000 ML IV SCH (07:27)
[2021-11-09] MEDS: TAMSULOSIN 0.4 MG CAP.ER.24H PO SCH (07:27)
[2021-11-09] MEDS: LACTATED RINGERS 1,000 ML IV SCH (07:28)
[2021-11-09] MEDS: HEPARIN SODIUM,PORCINE/PF 5,000 UNIT/0.5 ML SYRINGE SQ SCH ×3 (07:28→23:45)
[2021-11-09] MEDS: HYDROcodone/APAP 5-325MG 1 EACH TAB PO PRN ×2 (07:41→20:44)
[2021-11-09 08:41] LABS: Basophils # (A) 0.06 X 10*3/uL (0.00-0.10); Basophils % (A) 0.5 %; Eosinophils # (A) 0.09 X 10*3/uL (0.04-0.35); Eosinophils % (A) 0.7 %; HCT 24.8 % (37.2-46.3); HGB 7.9 g/dL (12.0-15.0); Immature Grans, Automated 0.5 %; Lymphocytes # (A) 2.42 X 10*3/uL (0.90-5.00); Lymphocytes % (A) 18.8 %; MCH 26.2 pg (27.0-32.0); MCHC 31.9 g/dL (32.0-37.0); MCV 82.4 fL (80.0-97.0); Mean Platelet Volume 9.6 fL (9.5-12.2); Monocytes # (A) 1.01 X 10*3/uL (0.20-1.00); Monocytes % (A) 7.9 %; NRBC Per 100 WBC 0 /100 WBCS (0.0-0.0); Neutrophils # (A) 9.21 X 10*3/uL (1.80-7.70); Neutrophils % (A) 71.6 %; Platelet Count 387 X 10*3/uL (140-440); RBC 3.01 X 10*6/uL (4.10-5.20); RDW 16.8 % (11.5-14.5); WBC 12.85 X 10*3/uL (4.50-10.00)
[2021-11-09 08:54] LABS: African American GFR (CKD) 107.7 (60.0-200.0); Anion Gap 8.4 mmol/L (10.00-18.00); BUN/Creat Ratio 20.35 Ratio (12.00-20.00); Blood Urea Nitrogen 11.5 mg/dL (9.0-27.0); Calcium 7.9 mg/dL (8.7-10.3); Carbon Dioxide 22.5 mmol/L (20.0-27.5); Magnesium 1.6 mg/dL (1.5-2.4); Non-African American GFR(CKD) 92.9 (60.0-200.0); Potassium 3.3 mmol/L (3.5-5.5)
[2021-11-09] MEDS ORDERED: Potassium Replacement Protocol 1 EACH MISC MISCELLANE PRN (09:07)
[2021-11-09] MEDS ORDERED: Magnesium Replacement Protocol 1 EACH MISC MISCELLANE PRN (09:08)
[2021-11-09] MEDS: MAGNESIUM SULFATE-D5W PMX 1 GM in DEXTROSE/WATER 1 100ML.BAG IVPB SCH ×2 (10:26→11:17)
[2021-11-09] MEDS: POTASSIUM CHLORIDE ER 20 MEQ TAB.ER PO SCH (10:26)
--- NOTE | 2021-11-09 16:15 | P.PN ---
Subjective Hospital course: Patient is a very pleasant 70-year-old female with a past medical history of CAD with previous [place], hypertension, hyperlipidemia, stage III chronic kidney disease, diabetes mellitus, status post ORIF of left ankle on 06/14/21 resulting in delayed wound healing and also radiation secondary to patient's severe peripheral arterial occlusive disease, patient has since underwent left femoral popliteal bypass graft and femoral artery angioplasty on 07/29/21 and is now returning to the emergency department secondary to this nonhealing left ankle wound/ulceration. Patient underwent full evaluation in the emergency department and was found to have leukocytosis with WBC count of 15.6, microchromic hypochr omic anemia with hemoglobin of 9.7, Renal function consistent with stage III CKD with BUN 42, creatinine 1.33, and GFR 40 (baseline creatinine 1.5). X-ray left ankle showing no focal bone distraction and no signs of osteomyelitis with calcaneal spurring and evidence of previous internal fixation intact. X-ray left foot showing no evidence of osteomyelitis, no fracture and positive for atherosclerotic disease. EKG completed showing normal sinus rhythm at 70 bpm with no noted T-wave or ST abnormalities. Wound cultures obtained and sent to lab for analysis. Patient was started on IV antibiotic Invanz and admitted under our services with consultation to vascular surgery, infectious disease and wound care. Arterial Doppler of left lower extremity revealing bypass graft with no flow. Vascular surgery discussed options with patient including redoing bypass graft with CryoVein versus above-knee amputation or no interventions and palliative care. Wound culture positive for ESBL with Staphylococcus aureus, Klebsiella pneumoniae, and Strep agalactiae. She remains on IV antibiotics with Invanz. 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 Interval history: Patient was seen and examined at the bedside.. She is alert oriented 3. She denies any chest pain or shortness of breath. Potassium 3.3 today Physical exam: Patient seen and fully evaluated at bedside this morning. Vascular surgery discussed the case with the patient and the plan to proceed with left above-knee amputation today. Patient denies any chest pain or shortness of breath. Hemoglobin 7.9 today Vital signs reviewed and stable. General: Nontoxic, no distress and appears stated age. Derm: Status post left AKA Head: Atraumatic, normocephalic and symmetric. Eyes: EOMs intact, no lid lag, and anicteric sclera Mouth: no lip lesions, mucus membranes moist Cardiovascular: regular rate and rhythm with normal S1S2, systolic murmur, positive posterior tibial pulses bilaterally, and cap refill < 2 seconds. Lungs: Respirations even, regular, and unlabored on room air. Lungs CTA bilaterally, no rhonchi, no rales, no wheezing, and no accessory muscle usage. Abdominal: soft, nontender to palpation, no guarding, no appreciable organome leonardo Ext: ROM intact. No gross muscle atrophy, no edema, no contractures Neuro: Speech clear, face symmetrical and CN II-XII grossly intact with no noted focal neuro deficits Psych: Alert and oriented to person, place, time, and situation. Appropriate and pleasant affect. Assessment and Plan of Care: Nonhealing ulcer of the left ankle and dorsal surface of left foot status post ORIF of left ankle on 06/14/21 Severe peripheral arterial occlusive disease status post left femoral popliteal bypass graft and femoral artery angioplasty 07/29/21 -IV antibiotics: Invanz per infectious disease -Wound culture positive for ESBL with Staphylococcus aureus, Klebsiella pneumoniae, and Strep agalactiae. 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 -Resume Plavix per vascular surgery Postsurgical acute blood loss anemia secondary to surgery -status post transfusion 1 unit of packed RBCs November 08 -Hemoglobin 7.9 November 09 -Monitor CBC Anemia of chronic disease Hypertension -Monitor vital signs and continue daily medication regimen with amlodipine. Hyperlipidemia -Continue daily medication regimen with atorvastatin 20 mg nightly. Stage III chronic kidney disease -Stable, we will continue to monitor with repeat a.m. labs Depression -Adjustment disorder with depressed mood -Per psychiatry patient declined antidepressants. -Patient was evaluated by psychiatry Diabetes mellitus -Glycemic protocol with NovoLog sliding scale. Chronic Thrombocytosis -Continue to monitor CODE STATUS: Full code DVT prophylaxis: Heparin Objective - Vital Signs Vital signs: Vital Signs Temp 98.0 F 11/09/21 14:00 Pulse 87 11/09/21 14:00 Resp 18 11/09/21 14:00 BP 120/61 11/09/21 14:00 Pulse Ox 97 11/09/21 14:00 FiO2 Intake & Output 11/08/21 11/09/21 11/09/21 18:59 06:59 18:59 Intake Total 1430 900 Output Total 450 600 Balance 980 300 Intake: Intake, IV Titration 950 900 Amount Ertapenem 1 gm In Sodium 50 Chloride 0.9% 50 ml @ 100 mls/hr IVPB DAILY [facility] Rx #:[id number] Sodium Chloride 0.9% 1, 900 900 000 ml @ 75 mls/hr IV . [id number] [facility] Rx#:[id number] Oral 120 Blood Product 310 Rc As-1 Unit 310 [id number] Other 50 Rc As-1 Unit 50 [id number] Output: Urine 450 600 Other: Voiding Method Indwelling Catheter Indwelling Catheter Indwelling Catheter - Labs CBC & Chem 7: 11/09/21 05:18 11/09/21 05:18 Labs: Abnormal Lab Results - Last 24 Hours (Table) 11/08/21 11/08/21 11/08/21 Range/Units 16:17 17:36 19:51 WBC 12.4 H (3.8-10.6) k/uL RBC 3.24 L (3.80-5.40) m/uL Hgb 8.7 L (11.4-16.0) gm/dL Hct 27.3 L (34.0-46.0) % MCH (27.0-32.0) pg MCHC (32.0-37.0) g/dL RDW 17.2 H (11.5-15.5) % Immature Gran # (0.00-0.04) X 10*3/uL Neutrophils # (1.80-7.70) X 10*3/uL Monocytes # (0.20-1.00) X 10*3/uL Potassium (3.5-5.5) mmol/L Anion Gap (10.00-18.00) mmol/L BUN/Creatinine Ratio (12.00-20.00) Ratio POC Glucose (mg/dL) 116 H 120 H (75-99) mg/dL Calcium (8.7-10.3) mg/dL 11/09/21 11/09/21 11/09/21 Range/Units 05:18 05:18 06:36 WBC 12.85 H (3.8-10.6) k/uL RBC 3.01 L (3.80-5.40) m/uL Hgb 7.9 L (11.4-16.0) gm/dL Hct 24.8 L (34.0-46.0) % MCH 26.2 L (27.0-32.0) pg MCHC 31.9 L (32.0-37.0) g/dL RDW 16.8 H (11.5-15.5) % Immature Gran # 0.06 H (0.00-0.04) X 10*3/uL Neutrophils # 9.21 H (1.80-7.70) X 10*3/uL Monocytes # 1.01 H (0.20-1.00) X 10*3/uL Potassium 3.3 L (3.5-5.5) mmol/L Anion Gap 8.40 L (10.00-18.00) mmol/L BUN/Creatinine Ratio 20.35 H (12.00-20.00) Ratio POC Glucose (mg/dL) 101 H (75-99) mg/dL Calcium 7.9 L (8.7-10.3) mg/dL
[2021-11-09 17:08] LABS: Glucose,Whole Blood 98 mg/dL (75-99)
[2021-11-09] MEDS: amLODIPine 10 MG TAB PO SCH (19:06)
[2021-11-09] MEDS: ATORVASTATIN 20 MG TAB PO SCH (19:06)
[2021-11-09] MEDS: MELATONIN 5 MG TABLET PO SCH (19:06)
[2021-11-09 20:42] LABS: Glucose,Whole Blood 96 mg/dL (75-99)
--- NOTE | 2021-11-09 22:17 | P.PN ---
Subjective Progress Note Date: 11/08/21 Principal diagnosis: Left heel ankle wound and cellulitis Patient is a 71-year-old female with a past medical history significant for chronic nonhealing wound to the left foot ankle area and this patient did have a surgery followed by revascularization to the left leg now has been brought back to the hospital concerning for infection to the left foot and ankle area with a nonhealing wound. Patient is status post left [id number]-[id number]-[id number] amputation completed on 11/07/2021 On today's evaluation that is 11/08/2021 the patient continues afebrile, the patient is breathing comfortably on nasal cannula oxygen, the patient came to the left AKA is controlled , the patient denies chest pain shortness of breath or cough no abdominal pain and no diarrhea Objective - Vital Signs Vital signs: Vital Signs Temp 98.2 F 11/08/21 12:24 Pulse 90 11/08/21 12:00 Resp 18 11/08/21 12:24 BP 150/72 11/08/21 12:24 Pulse Ox 100 11/08/21 12:24 FiO2 Intake & Output 11/07/21 11/08/21 11/08/21 18:59 06:59 18:59 Intake Total 1145 1140 120 Output Total 900 700 Balance 245 440 120 Intake: IV 800 Intake, IV Titration 225 900 Amount Sodium Chloride 0.9% 1, 225 900 000 ml @ 75 mls/hr IV . [id number] [facility] Rx#:[id number] Oral 120 240 120 Blood Product 0 Unit 0 Output: Urine 750 700 Estimated Blood Loss 150 Other: Voiding Method Indwelling Catheter Indwelling Catheter Indwelling Catheter # Voids 700 # Bowel Movements 0 - Exam GENERAL DESCRIPTION: An elderly female lying in bed in no distress RESPIRATORY SYSTEM: Unlabored breathing , decreased breath sounds at bases HEART: S1 S2 regular rate and rhythm , ABDOMEN: Soft , no tenderness EXTREMITIES: Left AKA surgical site is dressed - Labs CBC & Chem 7: 11/09/21 05:18 11/09/21 05:18 Labs: Abnormal Lab Results - Last 24 Hours (Table) 11/05/21 11/08/21 11/08/21 Range/Units 11:24 05:48 05:48 WBC 13.17 H (4.50-10.00) X 10*3/uL RBC 2.81 L (4.10-5.20) X 10*6/uL Hgb 6.9 L* (12.0-15.0) g/dL Hct 22.4 L (37.2-46.3) % MCV 79.7 L (80.0-97.0) fL MCH 24.6 L (27.0-32.0) pg MCHC 30.8 L (32.0-37.0) g/dL RDW 16.0 H (11.5-14.5) % Plt Count 452 H (140-440) X 10*3/uL Plt Count Comment INCREASED A MPV 9.3 L (9.5-12.2) fL Neutrophils # (Manual) 12.51 H (2.00-8.90) X 10*3/uL Lymphocytes # (Manual) 0.53 L (0.90-5.00) X 10*3/uL Monocytes # (Manual) 0.13 L (0.20-1.00) X 10*3/uL Eosinophils # (Manual) 0 L (0.04-0.35) X 10*3/uL BUN/Creatinine Ratio 22.35 H (12.00-20.00) Ratio POC Glucose (mg/dL) (75-99) mg/dL Calcium 8.1 L (8.7-10.3) mg/dL Crossmatch See Detail 11/08/21 Range/Units 11:31 WBC (4.50-10.00) X 10*3/uL RBC (4.10-5.20) X 10*6/uL Hgb (12.0-15.0) g/dL Hct (37.2-46.3) % MCV (80.0-97.0) fL MCH (27.0-32.0) pg MCHC (32.0-37.0) g/dL RDW (11.5-14.5) % Plt Count (140-440) X 10*3/uL Plt Count Comment MPV (9.5-12.2) fL Neutrophils # (Manual) (2.00-8.90) X 10*3/uL Lymphocytes # (Manual) (0.90-5.00) X 10*3/uL Monocytes # (Manual) (0.20-1.00) X 10*3/uL Eosinophils # (Manual) (0.04-0.35) X 10*3/uL BUN/Creatinine Ratio (12.00-20.00) Ratio POC Glucose (mg/dL) 140 H (75-99) mg/dL Calcium (8.7-10.3) mg/dL Crossmatch Assessment and Plan (1) Wound infection after surgery Current Visit: No Status: Acute Code(s): T81.49XA - INFECTION FOLLOWING A PROCEDURE, OTHER SURGICAL SITE, INIT SNOMED Code(s): 79995762 Plan: 1patient with a chronic nonhealing wound to the left ankle area in this patient did have multiple surgeries also left femoropopliteal bypass surgery now presented to hospital with nonhealing wound has been there for couple of months now patient did have elevated white count admission however no fever he did have multiple wounds to the left heel left groin area with some necrotic tissue no significant surrounding redness underlying infection as the hardware was exposed 2local cultures are growing ESBL Klebsiella and MSSA and strep. 3 patient is status post left above the knee amputation completed on 11/07/2021 4- patient will continue with the Invanz 1 g daily for another few days perioperatively however no plan for long-term IV antibiotic therapy Time with Patient: Less than 30
--- NOTE | 2021-11-09 22:19 | P.PN ---
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 Patient is status post left emmee-lag-enrb amputation completed on 11/07/2021 On today's evaluation that is 11/09/2021 the patient denies any fever or chills, the patient is breathing comfortably on nasal cannula oxygen, the patient denies pain to the left AKA site , the patient denies chest pain shortness of breath or cough no abdominal pain and no diarrhea Objective - Vital Signs Vital signs: Vital Signs Temp 98.0 F 11/09/21 14:00 Pulse 87 11/09/21 14:00 Resp 18 11/09/21 14:00 BP 120/61 11/09/21 14:00 Pulse Ox 97 11/09/21 14:00 FiO2 Intake & Output 11/08/21 11/09/21 11/09/21 18:59 06:59 18:59 Intake Total 1430 900 Output Total 450 600 Balance 980 300 Intake: Intake, IV Titration 950 900 Amount Ertapenem 1 gm In Sodium 50 Chloride 0.9% 50 ml @ 100 mls/hr IVPB DAILY [facility] Rx #:[id number] Sodium Chloride 0.9% 1, 900 900 000 ml @ 75 mls/hr IV . [id number] [facility] Rx#:[id number] Oral 120 Blood Product 310 Rc As-1 Unit 310 [id number] Other 50 Rc As-1 Unit 50 [id number] Output: Urine 450 600 Other: Voiding Method Indwelling Catheter Indwelling Catheter Indwelling Catheter - Exam GENERAL DESCRIPTION: An elderly female lying in bed in no distress RESPIRATORY SYSTEM: Unlabored breathing , decreased breath sounds at bases HEART: S1 S2 regular rate and rhythm , ABDOMEN: Soft , no tenderness EXTREMITIES: Left AKA surgical site is dressed, no drainage on the dressing - Labs CBC & Chem 7: 11/09/21 05:18 11/09/21 05:18 Labs: Abnormal Lab Results - Last 24 Hours (Table) 11/08/21 11/08/21 11/09/21 Range/Units 17:36 19:51 05:18 WBC 12.4 H 12.85 H (3.8-10.6) k/uL RBC 3.24 L 3.01 L (3.80-5.40) m/uL Hgb 8.7 L 7.9 L (11.4-16.0) gm/dL Hct 27.3 L 24.8 L (34.0-46.0) % MCH 26.2 L (27.0-32.0) pg MCHC 31.9 L (32.0-37.0) g/dL RDW 17.2 H 16.8 H (11.5-15.5) % Immature Gran # 0.06 H (0.00-0.04) X 10*3/uL Neutrophils # 9.21 H (1.80-7.70) X 10*3/uL Monocytes # 1.01 H (0.20-1.00) X 10*3/uL Potassium (3.5-5.5) mmol/L Anion Gap (10.00-18.00) mmol/L BUN/Creatinine Ratio (12.00-20.00) Ratio POC Glucose (mg/dL) 120 H (75-99) mg/dL Calcium (8.7-10.3) mg/dL 11/09/21 11/09/21 Range/Units 05:18 06:36 WBC (3.8-10.6) k/uL RBC (3.80-5.40) m/uL Hgb (11.4-16.0) gm/dL Hct (34.0-46.0) % MCH (27.0-32.0) pg MCHC (32.0-37.0) g/dL RDW (11.5-15.5) % Immature Gran # (0.00-0.04) X 10*3/uL Neutrophils # (1.80-7.70) X 10*3/uL Monocytes # (0.20-1.00) X 10*3/uL Potassium 3.3 L (3.5-5.5) mmol/L Anion Gap 8.40 L (10.00-18.00) mmol/L BUN/Creatinine Ratio 20.35 H (12.00-20.00) Ratio POC Glucose (mg/dL) 101 H (75-99) mg/dL Calcium 7.9 L (8.7-10.3) mg/dL Assessment and Plan (1) Wound infection after surgery Current Visit: No Status: Acute Code(s): T81.49XA - INFECTION FOLLOWING A PROCEDURE, OTHER SURGICAL SITE, INIT SNOMED Code(s): 17588856 Plan: 1patient with a chronic nonhealing wound to the left ankle area in this patient did have multiple surgeries also left femoropopliteal bypass surgery now presented to hospital with nonhealing wound has been there for couple of months now patient did have elevated white count admission however no fever he did have multiple wounds to the left heel left groin area with some necrotic tissue no significant surrounding redness underlying infection as the hardware was exposed 2local cultures are growing ESBL Klebsiella and MSSA and strep. 3 patient is status post left above the knee amputation completed on 11/07/2021 4- patient has received adequate antibiotic therapy with infected part removed and the patient was not bacteremic we will discontinue Invanz and monitor the patient closely off antibiotic Time with Patient: Less than 30
[2021-11-10 06:52] LABS: Glucose,Whole Blood 85 mg/dL (75-99)
[2021-11-10 10:44] LABS: Anisocytosis Slight; HCT 27.4 % (34.0-46.0); HGB 8.7 gm/dL (11.4-16.0); Hypochromasia Slight; MCH 26.6 pg (25.0-35.0); MCHC 31.6 g/dL (31.0-37.0); MCV 84.1 fL (80.0-100.0); Platelet Count 426 k/uL (150-450); Poikilocytosis Slight; RBC 3.26 m/uL (3.80-5.40); RDW 17.5 % (11.5-15.5)
--- NOTE | 2021-11-10 10:44 | P.PN ---
Subjective Hospital course: Patient is a very pleasant 70-year-old female with a past medical history of CAD with previous [place], hypertension, hyperlipidemia, stage III chronic kidney disease, diabetes mellitus, status post ORIF of left ankle on 06/14/21 resulting in delayed wound healing and also radiation secondary to patient's severe peripheral arterial occlusive disease, patient has since underwent left femoral popliteal bypass graft and femoral artery angioplasty on 07/29/21 and is now returning to the emergency department secondary to this nonhealing left ankle wound/ulceration. Patient underwent full evaluation in the emergency department and was found to have leukocytosis with WBC count of 15.6, microchromic hypochr omic anemia with hemoglobin of 9.7, Renal function consistent with stage III CKD with BUN 42, creatinine 1.33, and GFR 40 (baseline creatinine 1.5). X-ray left ankle showing no focal bone distraction and no signs of osteomyelitis with calcaneal spurring and evidence of previous internal fixation intact. X-ray left foot showing no evidence of osteomyelitis, no fracture and positive for atherosclerotic disease. EKG completed showing normal sinus rhythm at 70 bpm with no noted T-wave or ST abnormalities. Wound cultures obtained and sent to lab for analysis. Patient was started on IV antibiotic Invanz and admitted under our services with consultation to vascular surgery, infectious disease and wound care. Arterial Doppler of left lower extremity revealing bypass graft with no flow. Vascular surgery discussed options with patient including redoing bypass graft with CryoVein versus above-knee amputation or no interventions and palliative care. Wound culture positive for ESBL with Staphylococcus aureus, Klebsiella pneumoniae, and Strep agalactiae. She remains on IV antibiotics with Invanz. 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 Interval history: Patient was seen and examined at the bedside.. She is alert oriented 3. She denies any chest pain or shortness of breath. Physical exam: Vital signs reviewed and stable. General: Nontoxic, no distress and appears stated age. Derm: Status post left AKA Head: Atraumatic, normocephalic and symmetric. Eyes: EOMs intact, no lid lag, and anicteric sclera Mouth: no lip lesions, mucus membranes moist Cardiovascular: regular rate and rhythm with normal S1S2, systolic murmur, positive posterior tibial pulses bilaterally, and cap refill < 2 seconds. Lungs: Respirations even, regular, and unlabored on room air. Lungs CTA bilaterally, no rhonchi, no rales, no wheezing, and no accessory muscle usage. Abdominal: soft, nontender to palpation, no guarding, no appreciable organomegaly Ext: ROM intact. No gross muscle atrophy, no edema, no contractures Neuro: Speech clear, face symmetrical and CN II-XII grossly intact with no noted focal neuro deficits Psych: Alert and oriented to person, place, time, and situation. Appropriate and pleasant affect. Assessment and Plan of Care: Nonhealing ulcer of the left ankle and dorsal surface of left foot status post ORIF of left ankle on 06/14/21 Severe peripheral arterial occlusive disease status post left femoral popliteal bypass graft and femoral artery angioplasty 07/29/21 -IV antibiotics: Invanz per infectious disease -Wound culture positive for ESBL with Staphylococcus aureus, Klebsiella pneumoniae, and Strep agalactiae. 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 -Resume Plavix per vascular surgery Postsurgical acute blood loss anemia secondary to surgery -status post transfusion 1 unit of packed RBCs November 08 -Hemoglobin 7.9 November 09 -Monitor CBC Anemia of chronic disease Hypertension -Monitor vital signs and continue daily medication regimen with amlodipine. Hyperlipidemia -Continue daily medication regimen with atorvastatin 20 mg nightly. Stage III chronic kidney disease -Stable, we will continue to monitor with repeat a.m. labs Depression -Adjustment disorder with depressed mood -Per psychiatry patient declined antidepressants. -Patient was evaluated by psychiatry Diabetes mellitus -Glycemic protocol with NovoLog sliding scale. Chronic Thrombocytosis -Continue to monitor CODE STATUS: Full code DVT prophylaxis: Heparin Objective - Vital Signs Vital signs: Vital Signs Temp 97.7 F 11/10/21 07:47 Pulse 64 11/10/21 07:47 Resp 17 11/10/21 07:47 BP 135/74 11/10/21 07:47 Pulse Ox 95 11/10/21 07:47 FiO2 Intake & Output 11/09/21 11/10/21 11/10/21 18:59 06:59 18:59 Output Total 500 450 Balance -500 -450 Output: Urine 500 450 Other: Voiding Method Indwelling Catheter Indwelling Catheter - Labs CBC & Chem 7: 11/09/21 05:18 11/09/21 05:18
[2021-11-10] MEDS: SODIUM CHLORIDE 0.9% 1,000 ML IV SCH ×2 (10:54→11:01)
[2021-11-10] MEDS: LACTULOSE 20 GM/30 ML CUP PO SCH ×2 (10:54→17:02)
[2021-11-10] MEDS: LACTATED RINGERS 1,000 ML IV SCH (10:55)
[2021-11-10] MEDS: INSULIN ASPART (NovoLOG) 100 UNIT/ML VIAL SQ SCH ×4 (10:55→21:56)
[2021-11-10] MEDS: polyethylene glycoL 3350 17 GM POWD.PACK PO SCH (10:55)
[2021-11-10] MEDS: COLLAGENASE 250 UNIT/GM OINTMENT 30 GM TUBE TOPICAL SCH (10:56)
[2021-11-10] MEDS: TAMSULOSIN 0.4 MG CAP.ER.24H PO SCH (11:00)
[2021-11-10] MEDS: HEPARIN SODIUM,PORCINE/PF 5,000 UNIT/0.5 ML SYRINGE SQ SCH ×3 (11:01→23:22)
[2021-11-10] MEDS: MAGNESIUM OXIDE 400 MG TAB PO SCH (11:01)
[2021-11-10 11:42] LABS: Glucose,Whole Blood 120 mg/dL (75-99)
[2021-11-10 14:47] VITALS: RESP 18
[2021-11-10 16:36] LABS: Glucose,Whole Blood 155 mg/dL (75-99)
[2021-11-10 16:58] LABS: African American GFR (CKD) 114.1 (60.0-200.0); Anion Gap 8.4 mmol/L (10.00-18.00); BUN/Creat Ratio 21.14 Ratio (12.00-20.00); Calcium 7.7 mg/dL (8.7-10.3); Carbon Dioxide 23.4 mmol/L (20.0-27.5); Magnesium 1.8 mg/dL (1.5-2.4); Non-African American GFR(CKD) 98.5 (60.0-200.0); Potassium 3.8 mmol/L (3.5-5.5)
[2021-11-10] MEDS: ATORVASTATIN 20 MG TAB PO SCH (19:12)
[2021-11-10] MEDS: MELATONIN 5 MG TABLET PO SCH (19:12)
[2021-11-10] MEDS: amLODIPine 10 MG TAB PO SCH (19:12)
[2021-11-10 20:42] LABS: Glucose,Whole Blood 129 mg/dL (75-99)
[2021-11-11 06:43] LABS: Glucose,Whole Blood 108 mg/dL (75-99)
[2021-11-11] MEDS: SODIUM CHLORIDE 0.9% 1,000 ML IV SCH ×2 (07:03→11:40)
--- NOTE | 2021-11-11 07:10 | P.PN ---
Subjective Progress Note Date: 11/10/21 Principal diagnosis: Left heel ankle wound and cellulitis Patient is a 71-year-old female with a past medical history significant for chronic nonhealing wound to the left foot ankle area and this patient did have a surgery followed by revascularization to the left leg now has been brought back to the hospital concerning for infection to the left foot and ankle area with a nonhealing wound. Patient is status post left [id number] amputation completed on 11/07/2021 On today's evaluation that is 11/10/2021 the patient continues to be afebrile, the patient is breathing comfortably on nasal cannula oxygen, the patient pain to the left AKA stump is currently controlled , the patient denies chest pain shortness of breath or cough no abdominal pain and no diarrhea Objective - Vital Signs Vital signs: Vital Signs Temp 97.7 F 11/10/21 07:47 Pulse 64 11/10/21 07:47 Resp 17 11/10/21 07:47 BP 135/74 11/10/21 07:47 Pulse Ox 95 11/10/21 07:47 FiO2 Intake & Output 11/09/21 11/10/21 11/10/21 18:59 06:59 18:59 Output Total 500 450 Balance -500 -450 Output: Urine 500 450 Other: Voiding Method Indwelling Catheter Indwelling Catheter Indwelling Catheter - Exam GENERAL DESCRIPTION: An elderly female lying in bed in no distress RESPIRATORY SYSTEM: Unlabored breathing , decreased breath sounds at bases HEART: S1 S2 regular rate and rhythm , ABDOMEN: Soft , no tenderness EXTREMITIES: Left AKA surgical site is dressed, no drainage on the dressing - Labs CBC & Chem 7: 11/10/21 09:59 11/10/21 09:59 Labs: Abnormal Lab Results - Last 24 Hours (Table) 11/10/21 11/10/21 Range/Units 09:59 11:41 RBC 3.26 L (3.80-5.40) m/uL Hgb 8.7 L (11.4-16.0) gm/dL Hct 27.4 L (34.0-46.0) % RDW 17.5 H (11.5-15.5) % POC Glucose (mg/dL) 120 H (75-99) mg/dL Assessment and Plan (1) Wound infection after surgery Current Visit: No Status: Acute Code(s): T81.49XA - INFECTION FOLLOWING A PROCEDURE, OTHER SURGICAL SITE, INIT SNOMED Code(s): 89958491 Plan: 1patient with a chronic nonhealing wound to the left ankle area in this patient did have multiple surgeries also left femoropopliteal bypass surgery now presented to hospital with nonhealing wound has been there for couple of months now patient did have elevated white count admission however no fever he did have multiple wounds to the left heel left groin area with some necrotic tissue no significant surrounding redness underlying infection as the hardware was exposed 2local cultures are growing ESBL Klebsiella and MSSA and strep. 3 patient is status post left above the knee amputation completed on 11/07/2021 4- patient has received adequate antibiotic therapy with infected part removed and the patient was not bacteremic, the patient white count is normal we'll continue monitor the patient closely off antibiotic Time with Patient: Less than 30
[2021-11-11] MEDS: polyethylene glycoL 3350 17 GM POWD.PACK PO SCH (07:19)
[2021-11-11] MEDS: LACTATED RINGERS 1,000 ML IV SCH (07:20)
[2021-11-11] MEDS: INSULIN ASPART (NovoLOG) 100 UNIT/ML VIAL SQ SCH ×2 (07:20→11:39)
[2021-11-11] MEDS: COLLAGENASE 250 UNIT/GM OINTMENT 30 GM TUBE TOPICAL SCH (07:21)
[2021-11-11] MEDS: LACTULOSE 20 GM/30 ML CUP PO SCH ×2 (07:21→11:39)
[2021-11-11] MEDS: MAGNESIUM OXIDE 400 MG TAB PO SCH (07:27)
[2021-11-11] MEDS: HEPARIN SODIUM,PORCINE/PF 5,000 UNIT/0.5 ML SYRINGE SQ SCH (07:27)
[2021-11-11] MEDS: TAMSULOSIN 0.4 MG CAP.ER.24H PO SCH (07:27)
[2021-11-11 08:47] LABS: Basophils # (A) 0.06 X 10*3/uL (0.00-0.10); Basophils % (A) 0.5 %; Eosinophils # (A) 0.22 X 10*3/uL (0.04-0.35); HCT 26.2 % (37.2-46.3); Immature Grans, Automated 0.4 %; Lymphocytes # (A) 2.57 X 10*3/uL (0.90-5.00); Lymphocytes % (A) 23.4 %; MCH 25.6 pg (27.0-32.0); MCHC 30.5 g/dL (32.0-37.0); MCV 83.7 fL (80.0-97.0); Monocytes # (A) 0.72 X 10*3/uL (0.20-1.00); Monocytes % (A) 6.5 %; NRBC Per 100 WBC 0 /100 WBCS (0.0-0.0); Neutrophils # (A) 7.39 X 10*3/uL (1.80-7.70); Neutrophils % (A) 67.2 %; Platelet Count 437 X 10*3/uL (140-440); RBC 3.13 X 10*6/uL (4.10-5.20); RDW 17.5 % (11.5-14.5)
[2021-11-11 09:37] LABS: African American GFR (CKD) 105.5 (60.0-200.0); Anion Gap 10.2 mmol/L (10.00-18.00); Blood Urea Nitrogen 16.8 mg/dL (9.0-27.0); Calcium 7.9 mg/dL (8.7-10.3); Carbon Dioxide 20.8 mmol/L (20.0-27.5); Non-African American GFR(CKD) 91.1 (60.0-200.0); Potassium 3.5 mmol/L (3.5-5.5)
--- NOTE | 2021-11-11 09:56 | P.PN ---
Subjective Progress Note Date: 11/11/21 Principal diagnosis: Peripheral arterial disease, nonhealing wounds Patient seen and examined as a follow-up. She is postop day #4. She states her pain is well managed. 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 Patient has been afebrile. Infectious disease discontinued antibiotics. No other acute changes through the weekend. Hemoglobin was stable at 8.0. Objective - Vital Signs Vital signs: Vital Signs Temp 98.3 F 11/11/21 08:00 Pulse 88 11/11/21 08:00 Resp 18 11/11/21 02:00 BP 127/61 11/11/21 08:00 Pulse Ox 97 11/11/21 08:00 FiO2 Intake & Output 11/10/21 11/11/21 11/11/21 18:59 06:59 18:59 Output Total 450 Balance -450 Output: Urine 450 Other: Voiding Method Indwelling Catheter Indwelling Catheter Indwelling Catheter - Exam General appearance: The patient is alert, oriented, appears in no acute distress. HET: Head is normocephalic and atraumatic. Neck: Supple without lymphadenopathy. Trachea midline. Heart: S1 S2. Regular rate and rhythm. Lungs: Clear to auscultation bilaterally. Abdomen: Soft, nontender, nondistended. Extremities: Left [id number] amputation incision well approximated with cristian, very scant amount of serosanguineous drainage. Surrounding tissue pink, warm to touch. Left groin with dressing in place. Rigid dressing in place. Neurological: No focal deficits. Alert and oriented 3. - Labs CBC & Chem 7: 11/11/21 05:42 11/11/21 05:42 Labs: Abnormal Lab Results - Last 24 Hours (Table) 11/10/21 11/10/21 11/10/21 Range/Units 09:59 09:59 11:41 WBC (4.50-10.00) X 10*3/uL RBC 3.26 L (3.80-5.40) m/uL Hgb 8.7 L (11.4-16.0) gm/dL Hct 27.4 L (34.0-46.0) % MCH (27.0-32.0) pg MCHC (32.0-37.0) g/dL RDW 17.5 H (11.5-15.5) % Chloride 110 H (96-109) mmol/L Anion Gap 8.40 L (10.00-18.00) mmol/L Creatinine 0.5 L (0.6-1.5) mg/dL BUN/Creatinine Ratio 21.14 H (12.00-20.00) Ratio POC Glucose (mg/dL) 120 H (75-99) mg/dL Calcium 7.7 L (8.7-10.3) mg/dL 11/10/21 11/10/21 11/11/21 Range/Units 16:35 20:40 05:42 WBC 11.00 H (4.50-10.00) X 10*3/uL RBC 3.13 L (3.80-5.40) m/uL Hgb 8.0 L (11.4-16.0) gm/dL Hct 26.2 L (34.0-46.0) % MCH 25.6 L (27.0-32.0) pg MCHC 30.5 L (32.0-37.0) g/dL RDW 17.5 H (11.5-15.5) % Chloride (96-109) mmol/L Anion Gap (10.00-18.00) mmol/L Creatinine (0.6-1.5) mg/dL BUN/Creatinine Ratio (12.00-20.00) Ratio POC Glucose (mg/dL) 155 H 129 H (75-99) mg/dL Calcium (8.7-10.3) mg/dL 11/11/21 11/11/21 Range/Units 05:42 06:42 WBC (4.50-10.00) X 10*3/uL RBC (3.80-5.40) m/uL Hgb (11.4-16.0) gm/dL Hct (34.0-46.0) % MCH (27.0-32.0) pg MCHC (32.0-37.0) g/dL RDW (11.5-15.5) % Chloride (96-109) mmol/L Anion Gap (10.00-18.00) mmol/L Creatinine (0.6-1.5) mg/dL BUN/Creatinine Ratio 28.00 H (12.00-20.00) Ratio POC Glucose (mg/dL) 108 H (75-99) mg/dL Calcium 7.9 L (8.7-10.3) mg/dL Assessment and Plan Assessment: 1. Postop day #4 Left ltxzv-[id number] amputation 2. Chronic Nonhealing wounds to left lower extremity 3. Acute blood loss anemia on chronic anemia 4. Peripheral arterial disease status post left femoral popliteal bypass with in situ vein and left common femoral artery thrombectomy 5. Former smoker 6. Depression Plan: 1. Continue physical and occupational therapy 2. Consistent carbohydrate diet 3. Daily dressing change with Adaptic, 4 x 4 and Kerlix 4. Keep rigid dressing in place Patient is cleared from vascular surgery for discharge to [facility]. The impression and plan of care has been dictated as directed. Dr. Sharpe I performed a history and examination of this patient, discussed the same with the dictator. I agree with the dictator's note ,documented as a scribe. Any additional findings or plans will be noted.
[2021-11-11 11:25] LABS: Glucose,Whole Blood 99 mg/dL (75-99)
--- NOTE | 2021-11-11 12:20 | P.DS ---
Providers Date of admission: 10/29/21 19:30 Expected date of discharge: 11/11/21 Attending physician: Ida Ayala MD Consults: 10/29/21 19:30 Consult Physician Routine Consulting Provider: Freddie Silva Consult Reason/Comments: Wound infection Do you want consulting provider notified?: Yes 10/30/21 16:00 Consult Physician Routine Consulting Provider: David Sharpe Consult Reason/Comments: Severe PAD w/ delayed wound healing/ulcer s/p femoral popiteal bypass graft Do you want consulting provider notified?: Yes 11/07/21 13:05 Consult Physician Routine Consulting Provider: Sheng Plaza Consult Reason/Comments: Depression, lack of interest, poor eating/nutrition Do you want consulting provider notified?: Yes Primary care physician: Stated None Hospital Course: Hospital course: Patient is a very pleasant 70-year-old female with a past medical history of CAD with previous [place], hypertension, hyperlipidemia, stage III chronic kidney disease, diabetes mellitus, status post ORIF of left ankle on 06/14/21 resulting in delayed wound healing and also radiation secondary to patient's severe peripheral arterial occlusive disease, patient has since underwent left femoral popliteal bypass graft and femoral artery angioplasty on 07/29/21 and is now returning to the emergency department secondary to this nonhealing left ankle wound/ulceration. Patient underwent full evaluation in the emergency department and was found to have leukocytosis with WBC count of 15.6, microchromic hypochromic anemia with hemoglobin of 9.7, Renal function consistent with stage III CKD with BUN 42, creatinine 1.33, and GFR 40 (baseline creatinine 1.5). X- ray left ankle showing no focal bone distraction and no signs of osteomyelitis with calcaneal spurring and evidence of previous internal fixation intact. X- ray left foot showing no evidence of osteomyelitis, no fracture and positive for atherosclerotic disease. EKG completed showing normal sinus rhythm at 70 bpm with no noted T-wave or ST abnormalities. Wound cultures obtained and sent to lab for analysis. Patient was started on IV antibiotic Invanz and admitted under our services with consultation to vascular surgery, infectious disease and wound care. Arterial Doppler of left lower extremity revealing bypass graft with no flow. Vascular surgery discussed options with patient including redoing bypass graft with CryoVein versus above-knee amputation or no interventions and palliative care. Wound culture positive for ESBL with Staphylococcus aureus, Klebsiella pneumoniae, and Strep agalactiae. She remains on IV antibiotics with Invanz. 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 Physical exam on discharge: Vital signs reviewed and stable. General: Nontoxic, no distress and appears stated age. Derm: Status post left AKA Head: Atraumatic, normocephalic and symmetric. Eyes: EOMs intact, no lid lag, and anicteric sclera Mouth: no lip lesions, mucus membranes moist Cardiovascular: regular rate and rhythm with normal S1S2, systolic murmur, positive posterior tibial pulses bilaterally, and cap refill < 2 seconds. Lungs: Respirations even, regular, and unlabored on room air. Lungs CTA bilaterally, no rhonchi, no rales, no wheezing, and no accessory muscle usage. Abdominal: soft, nontender to palpation, no guarding, no appreciable organomegaly Ext: ROM intact. No gross muscle atrophy, no edema, no contractures Neuro: Speech clear, face symmetrical and CN II-XII grossly intact with no noted focal neuro deficits Psych: Alert and oriented to person, place, time, and situation. Appropriate and pleasant affect. Detailed problem list: Nonhealing ulcer of the left ankle and dorsal surface of left foot status post ORIF of left ankle on 06/14/21 Severe peripheral arterial occlusive disease status post left femoral popliteal bypass graft and femoral artery angioplasty 07/29/21 -IV antibiotics: Invanz per infectious disease -Wound culture positive for ESBL with Staphylococcus aureus, Klebsiella pneumoniae, and Strep agalactiae. -Blood culture showing no growth. Antibiotics discontinued by infectious disease -Status post left AKA November 07 -Symptomatic care and pain management. -Plavix resumed Postsurgical acute blood loss anemia secondary to surgery -status post transfusion 1 unit of packed RBCs November 08 -Hemoglobin stable at 8.0 November 11 -Monitor CBC Anemia of chronic disease Hypertension -Monitor vital signs and continue daily medication regimen with amlodipine. Hyperlipidemia -Continue daily medication regimen with atorvastatin 20 mg nightly. Stage III chronic kidney disease -Stable, we will continue to monitor with repeat a.m. labs Depression -Adjustment disorder with depressed mood -Per psychiatry patient declined antidepressants. -Patient was evaluated by psychiatry Diabetes mellitus -Glycemic protocol with NovoLog sliding scale. Thrombocytosis -Improved Patient Condition at Discharge: Stable Plan - Discharge Summary Discharge Rx Participant: Yes New Discharge Prescriptions: Continue Ergocalciferol [Vitamin D2 (1250 Mcg = 25503 Iu)] 1,250 mcg PO TU@0700 amLODIPine BESYLATE 10 mg PO HS@1999 Melatonin 5 mg PO HS@1999 Docusate [Colace] 100 mg PO DAILY PRN PRN Reason: Constipation Clopidogrel [Plavix] 75 mg PO HS@1999 bisacodyL [Dulcolax] 10 mg RECTAL DAILY PRN supp PRN Reason: Constipation Multivitamins, Thera [Multivitamin (formulary)] 1 tab PO DAILY@0700 Magnesium Oxide [Magox 400] 400 mg PO DAILY@0700 Linagliptin [Tradjenta] 5 mg PO DAILY@0700 Tamsulosin [Flomax] 0.4 mg PO DAILY@0700 Atorvastatin [Lipitor] 20 mg PO HS@1999 Acetaminophen [Acetaminophen ER] 650 mg PO Q6H PRN PRN Reason: Pain Lactulose [Cephulac] 30 gm PO BID@0700,1600 polyethylene glycoL 3350 [Miralax] 17 gm PO DAILY@0700 HYDROcodone/APAP 5-325MG [[place] 5-325] 1 tab PO Q6HR PRN #12 tab PRN Reason: Pain Discontinued Promethazine HCl 12.5 mg PO Q8H PRN PRN Reason: Nausea Povidone-Iodine [Betadine] 1 applic TOPICAL HS@1999 Discharge Medication List Ergocalciferol [Vitamin D2 (1250 Mcg = 76324 Iu)] 1,250 mcg PO TU@0700 07/16/21 [History] Magnesium Oxide [Magox 400] 400 mg PO DAILY@0700 07/16/21 [History] Linagliptin [Tradjenta] 5 mg PO DAILY@0700 07/26/21 [History] Tamsulosin [Flomax] 0.4 mg PO DAILY@0707/26/21 [History] amLODIPine BESYLATE 10 mg PO HS@199907/26/21 [History] Atorvastatin [Lipitor] 20 mg PO HS@199908/15/21 [History] Clopidogrel [Plavix] 75 mg PO HS@199908/15/21 [History] Docusate [Colace] 100 mg PO DAILY PRN 08/15/21 [History] Melatonin 5 mg PO HS@199908/15/21 [History] bisacodyL [Dulcolax] 10 mg RECTAL DAILY PRN supp 08/29/21 [Rx] Acetaminophen [Acetaminophen ER] 650 mg PO Q6H PRN 10/03/21 [History] Lactulose [Cephulac] 30 gm PO BID@0700,1600 10/03/21 [History] polyethylene glycoL 3350 [Miralax] 17 gm PO DAILY@0700 10/03/21 [History] Multivitamins, Thera [Multivitamin (formulary)] 1 tab PO DAILY@0700 10/29/21 [History] HYDROcodone/APAP 5-325MG [[place] 5-325] 1 tab PO Q6HR PRN #12 tab 11/11/21 [Rx] Follow up Appointment(s)/Referral(s): Ekaterina Colby DO [STAFF PHYSICIAN] - 2 Weeks None,Stated [Primary Care Provider] - 1-2 days Activity/Diet/Wound Care/Special Instructions: Daily dressing change as needed to left lower extremity incision, Adaptic, 4 x 4, Kerlix Stump ply cutter/rigid dressing to left amputation site Discharge Disposition: TRANSFER TO SNF/ECF
[2021-11-11 14:20] VITALS: BP 122/60; PULSE 72; TEMP 98.6
== END 2021-11-11 16:00 | DRG 857 ==
LOC: EC 16:40 → 5NMEDONC 19:30 → 4SSUR 11-01 18:32
PROVIDERS: ADMIT Internal Medicine; ATTEND Internal Medicine
PROC: 30233N1 Transfusion of Nonautologous Red Blood Cells into Peripheral Vein, Percutaneous Approach (ICD-10-PCS; 2021-11-06)
PROC: 0Y6D0Z3 Detachment at Left Upper Leg, Low, Open Approach (ICD-10-PCS; principal; 2021-11-07 09:00)
DX: T81.41XA Infection following a procedure, superficial incisional surgical site, initial encounter (principal); T81.31XA Disruption of external operation (surgical) wound, not elsewhere classified, initial encounter; L97.125 Non-pressure chronic ulcer of left thigh with muscle involvement without evidence of necrosis; L97.322 Non-pressure chronic ulcer of left ankle with fat layer exposed; L97.822 Non-pressure chronic ulcer of other part of left lower leg with fat layer exposed; D62 Acute posthemorrhagic anemia; L03.116 Cellulitis of left lower limb; N39.0 Urinary tract infection, site not specified; F05 Delirium due to known physiological condition; L89.620 Pressure ulcer of left heel, unstageable; E11.22 Type 2 diabetes mellitus with diabetic chronic kidney disease; L97.522 Non-pressure chronic ulcer of other part of left foot with fat layer exposed; E11.51 Type 2 diabetes mellitus with diabetic peripheral angiopathy without gangrene; E11.621 Type 2 diabetes mellitus with foot ulcer; L98.499 Non-pressure chronic ulcer of skin of other sites with unspecified severity; N18.30 Chronic kidney disease, stage 3 unspecified; R54 Age-related physical debility; I12.9 Hypertensive chronic kidney disease with stage 1 through stage 4 chronic kidney disease, or unspecified chronic kidney disease; B95.61 Methicillin susceptible Staphylococcus aureus infection as the cause of diseases classified elsewhere; B96.1 Klebsiella pneumoniae [K. pneumoniae] as the cause of diseases classified elsewhere; B95.1 Streptococcus, group B, as the cause of diseases classified elsewhere; I25.10 Atherosclerotic heart disease of native coronary artery without angina pectoris; F43.21 Adjustment disorder with depressed mood; E87.6 Hypokalemia; D75.839 Thrombocytosis, unspecified; E78.5 Hyperlipidemia, unspecified; I25.2 Old myocardial infarction; M54.50 Low back pain, unspecified; M77.32 Calcaneal spur, left foot; Z79.84 Long term (current) use of oral hypoglycemic drugs; Z79.02 Long term (current) use of antithrombotics/antiplatelets; Z79.899 Other long term (current) drug therapy; Z87.891 Personal history of nicotine dependence; Z86.19 Personal history of other infectious and parasitic diseases; Z87.81 Personal history of (healed) traumatic fracture; Z95.820 Peripheral vascular angioplasty status with implants and grafts; Z74.01 Bed confinement status; Z88.5 Allergy status to narcotic agent; Z80.9 Family history of malignant neoplasm, unspecified
CPT/HCPCS: 36415; 80048; 80053; 83605; 83735; 85025; 85027; 85610; 85652; 85730; 86140; 86850; 86900; 86901; 86920; 87040; 87070; 87077; 87186; 87205; 93005; 99285

== ENCOUNTER 2021-12-05 11:17 | Inpatient (IN) | payer MEDICARE, OTHER ==
[2021-12-05 12:54] LABS: Appearance,Urine Bloody (Clear); Color,Urine Red; RBC,Urine >182 /hpf (0-5); WBC,Urine >182 /hpf (0-5)
--- NOTE | 2021-12-05 13:44 | CT ---
EXAMINATION TYPE: CT abdomen pelvis wo con DATE OF EXAM: 12/05/2021 COMPARISON: CT dated 07/18/2021 HISTORY: hematuria, flank pain CT DLP: 414.7 mGycm Automated exposure control for dose reduction was used. TECHNIQUE: Helical acquisition of images was performed from the lung bases through the pelvis. FINDINGS: LUNG BASES: Bilateral basal posterior pulmonary atelectasis and small pleural effusions. LIVER/GB: Gallbladder calculi. No definite hepatic focal lesion by this nonenhanced CT scan. PANCREAS: No significant abnormality is seen. SPLEEN: No significant abnormality is seen. ADRENALS: No significant abnormality is seen. KIDNEYS: Grossly stable 16 mm right cortical renal hyperdense lesion, possibly representing a hemorrh agic/proteinaceous cyst. Another similar lesion is seen on the left side, also stable. Newly seen mil limetric hyperdensities at the superior aspect of the left kidney, possibly representing interval hem orrhage within a cyst. Other scattered bilateral renal cysts without gross suspicious feature. No def inite radiodense renal calculi. No hydroureter or hydronephrosis. FREE AIR: No free air is visualized RETROPERITONEAL ADENOPATHY: Subcentimeter retroperitoneal lymph nodes, nonspecific. REPRODUCTIVE ORGANS: No gross uterine mass. Bulky right ovary/adnexa, recommend correlation with pelv ic ultrasound results. URINARY BLADDER: Colby catheter is seen within. Hyperdense content within the urinary bladder with p ossible tiny dependent calculi. Recommend clinical correlation and correlation with urinalysis result s. PELVIC ADENOPATHY: None visualized. OSSEOUS STRUCTURES: Osteopenia. Degenerative changes of the lower lumbar spine. BOWEL: No evidence of bowel obstruction. Severe fecal loading of the rectum with thickened rectal wa ll, stercoral proctitis cannot be excluded. Presacral fluid is noted, possibly reactive. The remainde r of the colon demonstrates segments of significant fecal loading. Normal appendix. OTHER: Arterial atherosclerotic calcifications. Bilateral gluteal subcutaneous fat stranding and flui d, more on the left side with overlying skin thickening, please correlate clinically. Soft tissue thi ckening overlying the sacrum, bed sores cannot be excluded. IMPRESSION: No radiodense renal calculi. No hydroureter or hydronephrosis. Hyperdensity within the urinary bladde r which could represent blood however injected contrast or dependent calculi can't be excluded. Recom mend clinical correlation and correlation with urinalysis results. Severe fecal loading of the rectum with thickened wall and surrounding fluid, stercoral proctitis can not be excluded. Other findings as described above.
[2021-12-05 13:51] LABS: Anisocytosis Slight; Basophils # (A) 0.1 k/uL (0-0.2); Basophils % (A) 1 %; Eosinophils # (A) 0.2 k/uL (0-0.7); Eosinophils % (A) 2 %; HCT 27.4 % (34.0-46.0); HGB 8.7 gm/dL (11.4-16.0); Hypochromasia Slight; Lymphocytes # (A) 2.5 k/uL (1.0-4.8); Lymphocytes % (A) 25 %; MCH 26.7 pg (25.0-35.0); MCHC 31.7 g/dL (31.0-37.0); MCV 84.1 fL (80.0-100.0); Monocytes # (A) 0.5 k/uL (0-1.0); Monocytes % (A) 5 %; Neutrophils # (A) 6.4 k/uL (1.3-7.7); Neutrophils % (A) 66 %; Platelet Count 516 k/uL (150-450); RBC 3.26 m/uL (3.80-5.40); RDW 16.2 % (11.5-15.5); WBC 9.8 k/uL (3.8-10.6)
[2021-12-05 14:01] LABS: Calcium 8.9 mg/dL (8.4-10.2); Magnesium 2.3 mg/dL (1.6-2.3); Potassium 5.1 mmol/L (3.5-5.1); Total Bilirubin 0.3 mg/dL (0.2-1.3); Total Protein 6.5 g/dL (6.3-8.2)
--- NOTE | 2021-12-05 14:01 | ED ---
Female Urogenital HPI - General Chief complaint: Urogenital Stated complaint: Blood in Urine Time Seen by Provider: 12/05/21 11:17 Source: patient, EMS, RN notes reviewed Mode of arrival: EMS Limitations: physical limitation - History of Present Illness Initial comments: 71-year-old female from a neurologic DL here by EMS due to blood in her Colby catheter catheter was placed on the of this month. The patient is unsure why she has a catheter. She is denying any fevers chills nausea vomiting sweats no abdominal pain. MD Complaint: other - Related Data Home Medications Medication Instructions Recorded Confirmed Ergocalciferol [Vitamin D2 (1250 1,250 mcg PO TU 07/16/21 12/05/21 Mcg = 45024 Iu)] Magnesium Oxide [Magox 400] 400 mg PO DAILY 07/16/21 12/05/21 Linagliptin [Tradjenta] 5 mg PO DAILY 07/26/21 12/05/21 Tamsulosin [Flomax] 0.4 mg PO DAILY@0707/26/21 12/05/21 amLODIPine BESYLATE 10 mg PO HS@199907/26/21 12/05/21 Atorvastatin [Lipitor] 20 mg PO HS@199908/15/21 12/05/21 Clopidogrel [Plavix] 75 mg PO HS@199908/15/21 12/05/21 Docusate [Colace] 100 mg PO DAILY 08/15/21 12/05/21 Melatonin 5 mg PO HS@199908/15/21 12/05/21 Acetaminophen [Acetaminophen ER] 650 mg PO Q6H PRN 10/03/21 12/05/21 Lactulose [Cephulac] 30 gm PO BID 10/03/21 12/05/21 Multivitamins, Thera [Multivitamin 1 tab PO DAILY@0700 10/29/21 12/05/21 (formulary)] Mag Hydrox/Aluminum Hyd/Simeth 30 ml PO Q4H PRN 12/05/21 12/05/21 [Mylanta Maximum Strength Liq] polyethylene glycoL 3350 [Miralax] 17 gm PO DAILY 12/05/21 12/05/21 Previous Rx's Medication Instructions Recorded bisacodyL [Dulcolax] 10 mg RECTAL DAILY PRN supp 08/29/21 HYDROcodone/APAP 5-325MG [[place] 1 tab PO Q6HR PRN #12 tab 11/11/21 5-325] Allergies Allergy/AdvReac Type Severity Reaction Status Date / Time codeine AdvReac Itching Verified 12/05/21 11:54 Review of Systems ROS Statement: Those systems with pertinent positive or pertinent negative responses have been documented in the HPI. ROS Other: All systems not noted in ROS Statement are negative. Past Medical History Past Medical History: Diabetes Mellitus, Hyperlipidemia, Hypertension, Myocardial Infarction ([place]), Vascular Disorder Additional Past Medical History / Comment(s): DM type 2, pressure ulcers to the left foot, generalized weakness, non ambulatory, anemia Last Myocardial Infarction Date:: 1989 History of Any Multi-Drug Resistant Organisms: ESBL Date of last positivie culture/infection: 11/01/21 MDRO Source:: Lleft ankle Past Surgical History: No Surgical Hx Reported, Orthopedic Surgery Additional Past Surgical History / Comment(s): "Female surgery to help with .". vascular surgery to right leg, left ankle fracture w/displacement, Past Anesthesia/Blood Transfusion Reactions: No Reported Reaction Past Psychological History: No Psychological Hx Reported Smoking Status: Former smoker Past Alcohol Use History: None Reported, Rare Past Drug Use History: None Reported - Past Family History Mother Family Medical History: Cancer General Exam - General Exam Comments Initial Comments: This is a well-developed frail appearing female who is awake and alert. Limitations: physical limitation General appearance: alert, in no apparent distress Head exam: Present: atraumatic, normocephalic, normal inspection Eye exam: Present: normal appearance, PERRL, EOMI. Absent: scleral icterus, conjunctival injection, periorbital swelling ENT exam: Present: mucous membranes dry Neck exam: Present: normal inspection. Absent: tenderness, meningismus, lymphadenopathy Respiratory exam: Present: normal lung sounds bilaterally. Absent: respiratory distress, wheezes, rales, rhonchi, stridor Cardiovascular Exam: Present: regular rate, normal rhythm, normal heart sounds. Absent: systolic murmur, diastolic murmur, rubs, gallop, clicks GI/Abdominal exam: Present: soft, normal bowel sounds. Absent: distended, tenderness, guarding, rebound, rigid, bruit, pulsatile mass External exam: Present: other (The catheter in place evidence of gross bleeding. ) Extremities exam: Present: normal capillary refill, other (Right lower extremity has a bunny boot on it. Left lower extremity with [id number] amputation. This is secondary to diabetes). Absent: tenderness, pedal edema, joint swelling, calf tenderness Back exam: Present: normal inspection Neurological exam: Present: alert, oriented X3, CN II-XII intact Psychiatric exam: Present: normal affect, normal mood Skin exam: Present: warm, dry, intact, normal color. Absent: rash Course Vital Signs 12/05/21 11:21 Temperature 98.9 F Pulse Rate 71 Respiratory 18 Rate Blood Pressure 112/58 O2 Sat by Pulse 100 Oximetry Medical Decision Making - Medical Decision Making I did discuss the findings with patient as well as Dr. Cerda covering city call today patient will be admitted for IV hydration and serial H&H's consult Dr. Leigh from urology - Lab Data Result diagrams: 12/05/21 13:42 12/05/21 13:42 Lab Results 12/05/21 12/05/21 12/05/21 Range/Units 12:33 13:42 13:42 WBC 9.8 (3.8-10.6) k/uL RBC 3.26 L (3.80-5.40) m/uL Hgb 8.7 L (11.4-16.0) gm/dL Hct 27.4 L (34.0-46.0) % MCV 84.1 (80.0-100.0) fL MCH 26.7 (25.0-35.0) pg MCHC 31.7 (31.0-37.0) g/dL RDW 16.2 H (11.5-15.5) % Plt Count 516 H (150-450) k/uL MPV 7.0 Neutrophils % 66 % Lymphocytes % 25 % Monocytes % 5 % Eosinophils % 2 % Basophils % 1 % Neutrophils # 6.4 (1.3-7.7) k/uL Lymphocytes # 2.5 (1.0-4.8) k/uL Monocytes # 0.5 (0-1.0) k/uL Eosinophils # 0.2 (0-0.7) k/uL Basophils # 0.1 (0-0.2) k/uL Hypochromasia Slight Anisocytosis Slight PT 10.6 (9.0-12.0) sec INR 1.0 (<1.2) APTT 24.5 (22.0-30.0) sec Sodium (137-145) mmol/L Potassium (3.5-5.1) mmol/L Chloride (98-107) mmol/L Carbon Dioxide (22-30) mmol/L Anion Gap mmol/L BUN (7-17) mg/dL Creatinine (0.52-1.04) mg/dL Est GFR (CKD-EPI)AfAm (>60 ml/min/1.73 sqM) Est GFR (CKD-EPI)NonAf (>60 ml/min/1.73 sqM) Glucose (74-99) mg/dL Calcium (8.4-10.2) mg/dL Magnesium (1.6-2.3) mg/dL Total Bilirubin (0.2-1.3) mg/dL AST (14-36) U/L ALT (4-34) U/L Alkaline Phosphatase (38-126) U/L Creatine Kinase (30-135) U/L Total Protein (6.3-8.2) g/dL Albumin (3.5-5.0) g/dL Urine Color Red Urine Appearance Bloody H (Clear) Urine RBC >182 H (0-5) /hpf Urine WBC >182 H (0-5) /hpf 12/05/21 Range/Units 13:42 WBC (3.8-10.6) k/uL RBC (3.80-5.40) m/uL Hgb (11.4-16.0) gm/dL Hct (34.0-46.0) % MCV (80.0-100.0) fL MCH (25.0-35.0) pg MCHC (31.0-37.0) g/dL RDW (11.5-15.5) % Plt Count (150-450) k/uL MPV Neutrophils % % Lymphocytes % % Monocytes % % Eosinophils % % Basophils % % Neutrophils # (1.3-7.7) k/uL Lymphocytes # (1.0-4.8) k/uL Monocytes # (0-1.0) k/uL Eosinophils # (0-0.7) k/uL Basophils # (0-0.2) k/uL Hypochromasia Anisocytosis PT (9.0-12.0) sec INR (<1.2) APTT (22.0-30.0) sec Sodium 134 L (137-145) mmol/L Potassium 5.1 (3.5-5.1) mmol/L Chloride 101 (98-107) mmol/L Carbon Dioxide 25 (22-30) mmol/L Anion Gap 8 mmol/L BUN 28 H (7-17) mg/dL Creatinine 1.03 (0.52-1.04) mg/dL Est GFR (CKD-EPI)AfAm 63 (>60 ml/min/1.73 sqM) Est GFR (CKD-EPI)NonAf 55 (>60 ml/min/1.73 sqM) Glucose 111 H (74-99) mg/dL Calcium 8.9 (8.4-10.2) mg/dL Magnesium 2.3 (1.6-2.3) mg/dL Total Bilirubin 0.3 (0.2-1.3) mg/dL AST 17 (14-36) U/L ALT 9 (4-34) U/L Alkaline Phosphatase 131 H (38-126) U/L Creatine Kinase 24 L (30-135) U/L Total Protein 6.5 (6.3-8.2) g/dL Albumin 3.0 L (3.5-5.0) g/dL Urine Color Urine Appearance (Clear) Urine RBC (0-5) /hpf Urine WBC (0-5) /hpf - Radiology Data Radiology results: report reviewed (Imaging reviewed as well as reports no hydroureter no hydronephrosis evidence of clots in the urinary bladder evidence of hyperdense lesions representing hemorrhagic or proteinaceous cyst other similar lesions seen on the left side in this one being in the right also newly seen millimeter trick hype), image reviewed Disposition Clinical Impression: Gross hematuria, Chronic anemia, Dehydration Disposition: ADMITTED IP TO THIS [facility] Condition: Fair Referrals: None,Stated [Primary Care Provider] - 1-2 days Decision Date: 12/05/21 Decision Time: 16:01
[2021-12-05 14:03] LABS: Partial Thromboplastin Time 24.5 sec (22.0-30.0); Prothrombin Time 10.6 sec (9.0-12.0)
[2021-12-05] MEDS ORDERED: SODIUM CHLORIDE 0.9% 500 ML 500 ML IV STA (14:39)
[2021-12-05] MEDS ORDERED: ACETAMINOPHEN TAB 325 MG TAB PO PRN (16:03)
[2021-12-05] MEDS ORDERED: NALOXONE 0.4 MG/ML 1 ML VIAL IV PRN (16:03)
[2021-12-05] MEDS ORDERED: bisacodyL 10 MG SUPP RECTAL PRN (16:05)
[2021-12-05] MEDS ORDERED: MAG HYDROX/AL HYDROX/SIMETH 30 ML CUP PO PRN (16:05)
[2021-12-05] MEDS ORDERED: HYDROcodone/APAP 5-325MG 1 EACH TAB PO PRN (16:05)
[2021-12-05 17:39] LABS: Glucose,Whole Blood 129 mg/dL (70-110)
[2021-12-05] MEDS: SODIUM CHLORIDE 0.9% 1,000 ML IV SCH (17:59)
--- NOTE | 2021-12-05 18:56 | HP ---
HISTORY AND PHYSICAL CHIEF COMPLAINT: Hematuria. HISTORY OF PRESENT ILLNESS: This 71-year-old woman with a past medical history of multiple medical problems, including diabetes mellitus and hypertension, recently had left above-knee amputation. Patient was in a correction. Patient had a Colby catheter placed November 26 they noticed hematuria. The patient was taken to [facility]. Flushing was done in the ER with some clots. CT scan of the abdomen showed hemorrhagic cystitis and hemoglobin was 8.7. The patient is admitted for further evaluation and treatment. There is no history of any fever, rigor or chills at this time. PAST MEDICAL HISTORY: Left above-knee amputation, diabetes mellitus, hypertension and multiple other comorbidities. HOME MEDICATIONS: Reviewed. They include MiraLAX, Dulcolax. Doses and the rest of the medications are reviewed. ALLERGIES: CODEINE. FAMILY HISTORY: History of cancer. SOCIAL HISTORY: History of smoking. REVIEW OF SYSTEMS: Fourteen-point review of systems negative except as mentioned earlier. PHYSICAL EXAMINATION: Pulse is 72, blood pressure 140/60, respiration 18. HEENT: Conjunctivae pale. NECK: No jugular venous distention. CARDIOVASCULAR: S1, S2 muffled. RESPIRATION: Breath sounds diminished at the bases. ABDOMEN: Soft, nontender. Colby catheter draining hematuria. LEGS: Left above-knee amputation. NERVOUS SYSTEM: No focal deficit. Diffusely weak. SKIN: No ulcer, rash, bleeding. JOINTS: No active deforming arthropathy. LABS: Reviewed. Hemoglobin 8.7. Other labs are reviewed. ASSESSMENT: 1. Hematuria for evaluation; possible hemorrhagic cystitis. 2. Anemia. 3. Diabetes mellitus, type 2. 4. Hypertension. 5. Hyperlipidemia. 6. Left above-knee amputation. 7. Multiple complex medical issues. RECOMMENDATIONS AND DISCUSSION: In this 71-year-old woman who presented with multiple complex medical issues, we will monitor the patient closely. Repeat labs in the morning. Urology consultation. I would recommend stopping any antiplatelet agents empiric antibiotics. I would also recommend cultures. Prognosis is guarded because of multiple complex medical issues. Further recommendations to follow. See orders for further details. MMODL / IJN: [id number] / MTDD
[2021-12-05] MEDS: ATORVASTATIN 20 MG TAB PO SCH (20:51)
[2021-12-05] MEDS: MELATONIN 5 MG TABLET PO SCH (20:51)
[2021-12-05] MEDS: amLODIPine 10 MG TAB PO SCH (20:51)
[2021-12-05] MEDS: LACTULOSE 20 GM/30 ML CUP PO SCH (20:52)
[2021-12-05 21:29] LABS: Glucose,Whole Blood 113 mg/dL (70-110)
[2021-12-06] MEDS: SODIUM CHLORIDE 0.9% 1,000 ML IV SCH ×3 (01:14→18:21)
[2021-12-06 07:50] LABS: Glucose,Whole Blood 97 mg/dL (70-110)
--- NOTE | 2021-12-06 08:09 | P.GSCN ---
History of Present Illness Consult date: 12/06/21 History of present illness: 71 yo female with multiple health issues especially advanced diabetes with vascular issues. She has been a intermediate. SHe had a elias catheter placed[reason?]. Hematuria was noticed and she was brought to the hospital. Her hgb was 8.7 however it was 8.4 a month ago. the ua was loaded with rbc and wbc. the ct scan showed hemorrhagic cyst in the kidneys and debris in the bladder. Per the patient catheters been in several months. She has been in a intermediate for a while. She does not recall gross hematuria. She states that she has problems urinating and that is perhaps why he catheters in place. He has never seen a urologist before. He has never been instructed in intermittent catheterization. Review of Systems All systems: negative - Constitutional Denies fever, Denies weight loss - EENT Eyes: denies blurred vision Ears, nose, mouth and throat: Denies dysphagia - Cardiovascular Denies chest pain, Denies shortness of breath - Respiratory Denies cough, Denies 7 - Gastrointestinal Reports as per HPI - Genitourinary Genitourinary: Denies dysuria, Denies hematuria - Integumentary Denies rash, Denies unusual bruising - Neurological Denies headaches, Denies syncope - Hematologic/Lymphatic Denies easy bleeding, Denies easy bruising Past Medical History Past Medical History: Diabetes Mellitus, Hyperlipidemia, Hypertension, Myocardial Infarction ([place]), Vascular Disorder Additional Past Medical History / Comment(s): DM type 2, pressure ulcers to the left foot, generalized weakness, non ambulatory, anemia Last Myocardial Infarction Date:: 1989 History of Any Multi-Drug Resistant Organisms: ESBL Year Discovered:: 11/01/21 MDRO Source:: Lleft ankle Past Surgical History: No Surgical Hx Reported, Orthopedic Surgery Additional Past Surgical History / Comment(s): "Female surgery to help with .". vascular surgery to right leg, left ankle fracture w/displacement, LLE AKA Past Anesthesia/Blood Transfusion Reactions: No Reported Reaction Past Psychological History: No Psychological Hx Reported Smoking Status: Former smoker Past Alcohol Use History: None Reported, Rare Additional Past Alcohol Use History / Comment(s): Quit smoking 28 yrs ago. Past Drug Use History: None Reported Additional Drug Use History / Comment(s): "Pot once in a great while". - Past Family History Mother Family Medical History: Cancer Medications and Allergies Home Medications Medication Instructions Recorded Confirmed Type Ergocalciferol [Vitamin D2 (1250 1,250 mcg PO TU 07/16/21 12/05/21 History Mcg = 50795 Iu)] Magnesium Oxide [Magox 400] 400 mg PO DAILY 07/16/21 12/05/21 History Linagliptin [Tradjenta] 5 mg PO DAILY 07/26/21 12/05/21 History Tamsulosin [Flomax] 0.4 mg PO DAILY@0700 07/26/21 12/05/21 History amLODIPine BESYLATE 10 mg PO HS@199907/26/21 12/05/21 History Atorvastatin [Lipitor] 20 mg PO HS@199908/15/21 12/05/21 History Clopidogrel [Plavix] 75 mg PO HS@199908/15/21 12/05/21 History Docusate [Colace] 100 mg PO DAILY 08/15/21 12/05/21 History Melatonin 5 mg PO HS@199908/15/21 12/05/21 History bisacodyL [Dulcolax] 10 mg RECTAL DAILY PRN supp 08/29/21 12/05/21 Rx Acetaminophen [Acetaminophen ER] 650 mg PO Q6H PRN 10/03/21 12/05/21 History Lactulose [Cephulac] 30 gm PO BID 10/03/21 12/05/21 History Multivitamins, Thera [Multivitamin 1 tab PO DAILY@0700 10/29/21 12/05/21 History (formulary)] HYDROcodone/APAP 5-325MG [[place] 1 tab PO Q6HR PRN #12 tab 11/11/21 12/05/21 Rx 5-325] Mag Hydrox/Aluminum Hyd/Simeth 30 ml PO Q4H PRN 12/05/21 12/05/21 History [Mylanta Maximum Strength Liq] polyethylene glycoL 3350 [Miralax] 17 gm PO DAILY 12/05/21 12/05/21 History Allergies Allergy/AdvReac Type Severity Reaction Status Date / Time codeine AdvReac Itching Verified 12/05/21 11:54 Surgical - Exam Vital Signs Temp Pulse Resp BP Pulse Ox 98.9 F 71 18 112/58 100 12/05/21 11:21 12/05/21 11:21 12/05/21 11:21 12/05/21 11:21 12/05/21 11:21 - General well developed, chronically ill - Eyes PERRL - ENT no hearing loss - Respiratory normal expansion, normal respiratory effort - Cardiovascular Rhythm: regular - Abdomen Abdomen: soft, non tender - Genitourinary Indwelling catheter with slightly tea-colored urine - Musculoskeletal normal posture - Psychiatric oriented to time, oriented to person, oriented to place, speech is normal, memory intact Results - Labs 12/05/21 13:42 12/05/21 13:42 Abnormal Lab Results - Last 24 Hours (Table) 12/05/21 12/05/21 12/05/21 Range/Units 12:33 13:42 13:42 RBC 3.26 L (3.80-5.40) m/uL Hgb 8.7 L (11.4-16.0) gm/dL Hct 27.4 L (34.0-46.0) % RDW 16.2 H (11.5-15.5) % Plt Count 516 H (150-450) k/uL Sodium 134 L (137-145) mmol/L BUN 28 H (7-17) mg/dL Glucose 111 H (74-99) mg/dL POC Glucose (mg/dL) (70-110) mg/dL Alkaline Phosphatase 131 H (38-126) U/L Creatine Kinase 24 L (30-135) U/L Albumin 3.0 L (3.5-5.0) g/dL Urine Appearance Bloody H (Clear) Urine RBC >182 H (0-5) /hpf Urine WBC >182 H (0-5) /hpf 12/05/21 12/05/21 Range/Units 17:37 21:28 RBC (3.80-5.40) m/uL Hgb (11.4-16.0) gm/dL Hct (34.0-46.0) % RDW (11.5-15.5) % Plt Count (150-450) k/uL Sodium (137-145) mmol/L BUN (7-17) mg/dL Glucose (74-99) mg/dL POC Glucose (mg/dL) 129 H 113 H (70-110) mg/dL Alkaline Phosphatase (38-126) U/L Creatine Kinase (30-135) U/L Albumin (3.5-5.0) g/dL Urine Appearance (Clear) Urine RBC (0-5) /hpf Urine WBC (0-5) /hpf Microbiology - Last 24 Hours (Table) 12/05/21 12:33 Urine Culture - Preliminary Urine,Voided Diabetes panel 12/05/21 Range/Units 13:42 Sodium 134 L (137-145) mmol/L Potassium 5.1 (3.5-5.1) mmol/L Chloride 101 (98-107) mmol/L Carbon Dioxide 25 (22-30) mmol/L BUN 28 H (7-17) mg/dL Creatinine 1.03 (0.52-1.04) mg/dL Glucose 111 H (74-99) mg/dL Calcium 8.9 (8.4-10.2) mg/dL AST 17 (14-36) U/L ALT 9 (4-34) U/L Alkaline Phosphatase 131 H (38-126) U/L Total Protein 6.5 (6.3-8.2) g/dL Albumin 3.0 L (3.5-5.0) g/dL Calcium panel 12/05/21 Range/Units 13:42 Calcium 8.9 (8.4-10.2) mg/dL Albumin 3.0 L (3.5-5.0) g/dL Pituitary panel 12/05/21 Range/Units 13:42 Sodium 134 L (137-145) mmol/L Potassium 5.1 (3.5-5.1) mmol/L Chloride 101 (98-107) mmol/L Carbon Dioxide 25 (22-30) mmol/L BUN 28 H (7-17) mg/dL Creatinine 1.03 (0.52-1.04) mg/dL Glucose 111 H (74-99) mg/dL Calcium 8.9 (8.4-10.2) mg/dL Adrenal panel 12/05/21 Range/Units 13:42 Sodium 134 L (137-145) mmol/L Potassium 5.1 (3.5-5.1) mmol/L Chloride 101 (98-107) mmol/L Carbon Dioxide 25 (22-30) mmol/L BUN 28 H (7-17) mg/dL Creatinine 1.03 (0.52-1.04) mg/dL Glucose 111 H (74-99) mg/dL Calcium 8.9 (8.4-10.2) mg/dL Total Bilirubin 0.3 (0.2-1.3) mg/dL AST 17 (14-36) U/L ALT 9 (4-34) U/L Alkaline Phosphatase 131 H (38-126) U/L Total Protein 6.5 (6.3-8.2) g/dL Albumin 3.0 L (3.5-5.0) g/dL - Imaging CT scan - abdomen: report reviewed, image reviewed CT scan - pelvis: report reviewed, image reviewed Assessment and Plan Assessment: Impression: gross hematuria probably due to catheter trauma. Perhaps infectious. Chronic anemia. Multiple medical problems. Recommendations: The urine seems to be clearing appropriately. As an outpatient she would need cystoscopy. Urine retention should be addressed either with a chronic indwelling catheter or intermittent catheterization. This has been discussed with the patient.
[2021-12-06 08:44] LABS: Basophils # (A) 0.06 X 10*3/uL (0.00-0.10); Basophils % (A) 0.5 %; Eosinophils # (A) 0.29 X 10*3/uL (0.04-0.35); Eosinophils % (A) 2.5 %; HCT 24.2 % (37.2-46.3); HGB 7.2 g/dL (12.0-15.0); Immature Grans, Automated 0.4 %; Lymphocytes # (A) 4.08 X 10*3/uL (0.90-5.00); Lymphocytes % (A) 34.7 %; MCH 25.6 pg (27.0-32.0); MCHC 29.8 g/dL (32.0-37.0); MCV 86.1 fL (80.0-97.0); Mean Platelet Volume 9.9 fL (9.5-12.2); Monocytes # (A) 0.75 X 10*3/uL (0.20-1.00); Monocytes % (A) 6.4 %; NRBC Per 100 WBC 0 /100 WBCS (0.0-0.0); Neutrophils # (A) 6.53 X 10*3/uL (1.80-7.70); Neutrophils % (A) 55.5 %; Platelet Count 533 X 10*3/uL (140-440); RBC 2.81 X 10*6/uL (4.10-5.20); WBC 11.76 X 10*3/uL (4.50-10.00)
[2021-12-06 08:48] LABS: African American GFR (CKD) 65.2 (60.0-200.0); Anion Gap 11.9 mmol/L (10.00-18.00); BUN/Creat Ratio 22.9 Ratio (12.00-20.00); Blood Urea Nitrogen 22.9 mg/dL (9.0-27.0); Calcium 8.9 mg/dL (8.7-10.3); Carbon Dioxide 23.1 mmol/L (20.0-27.5); Non-African American GFR(CKD) 56.2 (60.0-200.0); Potassium 4.6 mmol/L (3.5-5.5)
[2021-12-06] MEDS: MULTIVITAMINS, THERA 1 EACH TAB PO SCH (09:13)
[2021-12-06] MEDS: MAGNESIUM OXIDE 400 MG TAB PO SCH (09:13)
[2021-12-06] MEDS: LACTULOSE 20 GM/30 ML CUP PO SCH ×2 (09:13→20:04)
[2021-12-06] MEDS: TAMSULOSIN 0.4 MG CAP.ER.24H PO SCH (09:13)
[2021-12-06] MEDS: DOCUSATE 100 MG CAP PO SCH (09:13)
[2021-12-06] MEDS: polyethylene glycoL 3350 17 GM POWD.PACK PO SCH (09:13)
[2021-12-06] MEDS: LINAGLIPTIN 5 MG TABLET PO SCH (09:13)
[2021-12-06 12:48] LABS: Glucose,Whole Blood 102 mg/dL (70-110)
[2021-12-06] MEDS ORDERED: FUROSEMIDE 10 MG/ML 2 ML VIAL IV ONE (13:45)
[2021-12-06 16:59] LABS: Glucose,Whole Blood 119 mg/dL (70-110)
--- NOTE | 2021-12-06 19:03 | PN ---
PROGRESS NOTE DATE OF SERVICE: 12/06/2021 This 71-year-old woman who was admitted with hematuria also had Colby catheter. No chest pain. No palpitations. No fever. Urology has seen the patient. Catheter trauma suspected. Patient also being arranged transfusion for severe anemia. No chest pain. No palpitation. PHYSICAL EXAMINATION: Pulse is 73, blood pressure 126/68, respiratory rate 16. HEENT: Conjunctivae normal. NECK: No JVD. CARDIOVASCULAR: S1, S2. RESPIRATORY: Breath sounds diminished in the bases. A few scattered rhonchi. ABDOMEN: Soft. NERVOUS SYSTEM: No focal deficits. Colby catheter draining bloody urine. LABORATORY DATA: Hemoglobin 7.2. Other labs noted. ASSESSMENT: 1. Hematuria, possibly hemorrhagic cystitis, possible catheter trauma. 2. Anemia. 3. Diabetes mellitus, type 2. 4. Hypertension. 5. Hyperlipidemia. 6. Left above-knee amputation. 7. Multiple complex medical issues. RECOMMENDATIONS AND DISCUSSION: Recommend to continue current medications, management and symptomatic treatment. Otherwise closely follow with Urology. Continue the empiric antibiotics. Follow the cultures. Further recommendations to follow. MMODL / IJN: [id number] /
[2021-12-06] MEDS: MELATONIN 5 MG TABLET PO SCH (20:04)
[2021-12-06] MEDS: ATORVASTATIN 20 MG TAB PO SCH (20:04)
[2021-12-06] MEDS: amLODIPine 10 MG TAB PO SCH (20:04)
[2021-12-07] MEDS: SODIUM CHLORIDE 0.9% 1,000 ML IV SCH (05:14)
[2021-12-07 07:08] LABS: Glucose,Whole Blood 97 mg/dL (70-110)
[2021-12-07] MEDS: MULTIVITAMINS, THERA 1 EACH TAB PO SCH (07:59)
[2021-12-07] MEDS: DOCUSATE 100 MG CAP PO SCH (07:59)
[2021-12-07] MEDS: TAMSULOSIN 0.4 MG CAP.ER.24H PO SCH (07:59)
[2021-12-07] MEDS: polyethylene glycoL 3350 17 GM POWD.PACK PO SCH (07:59)
[2021-12-07] MEDS: LINAGLIPTIN 5 MG TABLET PO SCH (07:59)
[2021-12-07] MEDS: MAGNESIUM OXIDE 400 MG TAB PO SCH (07:59)
[2021-12-07] MEDS: LACTULOSE 20 GM/30 ML CUP PO SCH ×2 (08:03→19:21)
[2021-12-07 12:13] LABS: Glucose,Whole Blood 109 mg/dL (70-110)
--- NOTE | 2021-12-07 14:37 | PN ---
PROGRESS NOTE DATE OF SERVICE: 12/07/2021 This 71-year-old woman who was admitted with hematuria and blood loss anemia is being closely monitored. No chest pain. No palpitations. No fever. Hemoglobin today is not available. PHYSICAL EXAMINATION: Pulse is 69, blood pressure 120/58, respirations 16. HEENT: Conjunctivae normal. NECK: No jugular venous distention. CARDIOVASCULAR: S1, S2 muffled. RESPIRATION: Breath sounds diminished at the bases. A few scattered rhonchi. ABDOMEN: Soft. NERVOUS SYSTEM: No focal deficit. LABS: Reviewed, but current hemoglobin is not available. ASSESSMENT: 1. Hematuria; possibly hemorrhagic cystitis, possible catheter trauma, with acute blood loss anemia. 2. Diabetes mellitus, type 2. 3. Hypertension. 4. Hyperlipidemia. 5. Left above-knee amputation. 6. Multiple complex medical issues. RECOMMENDATIONS AND DISCUSSION: I recommend to continue current medications, continue with the monitoring, symptomatic treatment. I recommend monitoring the hemoglobin closely. Prognosis guarded because of the multiple complex medical issues. Further recommendations to follow. MMODL / IJN: [id number] /
[2021-12-07] MEDS: amLODIPine 10 MG TAB PO SCH (19:21)
[2021-12-07] MEDS: ATORVASTATIN 20 MG TAB PO SCH (19:21)
[2021-12-07] MEDS: MELATONIN 5 MG TABLET PO SCH (19:21)
[2021-12-08 06:46] LABS: Glucose,Whole Blood 99 mg/dL (70-110)
[2021-12-08] MEDS: LINAGLIPTIN 5 MG TABLET PO SCH (07:40)
[2021-12-08] MEDS: MULTIVITAMINS, THERA 1 EACH TAB PO SCH (07:40)
[2021-12-08] MEDS: DOCUSATE 100 MG CAP PO SCH (07:41)
[2021-12-08] MEDS: LACTULOSE 20 GM/30 ML CUP PO SCH ×2 (07:41→19:20)
[2021-12-08] MEDS: polyethylene glycoL 3350 17 GM POWD.PACK PO SCH (07:41)
[2021-12-08] MEDS: TAMSULOSIN 0.4 MG CAP.ER.24H PO SCH (07:41)
[2021-12-08] MEDS: MAGNESIUM OXIDE 400 MG TAB PO SCH (07:41)
[2021-12-08 10:05] LABS: Basophils # (A) 0.06 X 10*3/uL (0.00-0.10); Basophils % (A) 0.6 %; Eosinophils # (A) 0.23 X 10*3/uL (0.04-0.35); Eosinophils % (A) 2.4 %; HCT 29.4 % (37.2-46.3); HGB 8.8 g/dL (12.0-15.0); Immature Grans, Automated 0.3 %; Lymphocytes # (A) 2.62 X 10*3/uL (0.90-5.00); Lymphocytes % (A) 27.3 %; MCH 25.4 pg (27.0-32.0); MCHC 29.9 g/dL (32.0-37.0); Mean Platelet Volume 9.5 fL (9.5-12.2); Monocytes # (A) 0.63 X 10*3/uL (0.20-1.00); Monocytes % (A) 6.6 %; NRBC Per 100 WBC 0 /100 WBCS (0.0-0.0); Neutrophils # (A) 6.01 X 10*3/uL (1.80-7.70); Neutrophils % (A) 62.8 %; Platelet Count 579 X 10*3/uL (140-440); RBC 3.46 X 10*6/uL (4.10-5.20); RDW 15.9 % (11.5-14.5); WBC 9.58 X 10*3/uL (4.50-10.00)
[2021-12-08 10:37] LABS: ALT 9 U/L (8-44); AST 13 U/L (13-35); African American GFR (CKD) 75.7 (60.0-200.0); Albumin 3.1 g/dL (3.8-4.9); Albumin/Globulin Ratio 0.94 (1.60-3.17); Alkaline Phosphatase 107 U/L (41-126); BUN/Creat Ratio 19.57 Ratio (12.00-20.00); Blood Urea Nitrogen 17.3 mg/dL (9.0-27.0); Calcium 9.1 mg/dL (8.7-10.3); Carbon Dioxide 25.4 mmol/L (20.0-27.5); Chloride 103 mmol/L (96-109); Globulin 3.3 g/dL (1.6-3.3); Glucose 99 mg/dL (70-110); Non-African American GFR(CKD) 65.3 (60.0-200.0); Potassium 3.7 mmol/L (3.5-5.5); Sodium 138 mmol/L (135-145); Total Bilirubin <0.15 mg/dL (0.30-1.20); Total Protein 6.3 g/dL (6.2-8.2)
--- NOTE | 2021-12-08 16:38 | P.PN ---
Subjective Progress Note Date: 12/08/21 This is a 71 year old female who was recently admitted with hematuria and blood loss anemia and is being closely monitored. Patient hemoglobin is 8.8 today and urine is yellow with some residual blood noted in the catheter tubing. Patient denies any abdominal pain and is tolerating diet. Patient is from an [facility] and will be returning there once stable. Patient denies chest pain or shortness of breath. Review of systems: Constitutional: No reports of fatigue, fever, or chills Cardiovascular: No reports of chest pain or palpitations Respiratory: No reports of shortness of breath or cough GI: No reports of nausea, no reports of of vomiting, no reports of diarrhea : No reports of dysuria or retention, chronic indwelling elias Neurovascular: reports of generalized weakness All medications have been reviewed Active Medications Acetaminophen (Acetaminophen Tab 325 Mg Tab) 650 mg PO Q6HR PRN PRN Reason: Mild Pain or Fever > 100.5 Hydrocodone Bitart/Acetaminophen (Hydrocodone/Apap 5-325mg 1 Each Tab) 1 each PO Q6HR PRN PRN Reason: Pain Last Admin: 12/05/21 18:00 Dose: 1 each Al Hydroxide/Mg Hydroxide (Mag Hydrox/Al Hydrox/Simeth 30 Ml Cup) 30 ml PO Q4H PRN PRN Reason: Indigestion Amlodipine Besylate (Amlodipine 10 Mg Tab) 10 mg PO HS@1999 [facility] Last Admin: 12/07/21 19:21 Dose: 10 mg Atorvastatin Calcium (Atorvastatin 20 Mg Tab) 20 mg PO HS@1999 [facility] Last Admin: 12/07/21 19:21 Dose: 20 mg Bisacodyl (Bisacodyl 10 Mg Supp) 10 mg RECTAL DAILY PRN PRN Reason: Constipation Docusate Sodium (Docusate 100 Mg Cap) 100 mg PO DAILY [facility] Last Admin: 12/08/21 07:41 Dose: Not Given Ergocalciferol (Ergocalciferol 1,250 Mcg (50,000 Iu) Capsule) 1,250 mcg PO [place] Sodium Chloride (Saline 0.9%) 1,000 mls @ 20 mls/hr IV .Q24H [facility] Last Admin: 12/07/21 05:14 Dose: 75 mls/hr Ceftriaxone Sodium 1 gm/ (Sodium Chloride) 50 mls @ 100 mls/hr IVPB Q24HR [facility]; Protocol Last Admin: 12/08/21 07:40 Dose: 100 mls/hr Lactulose (Lactulose 20 Gm/30 Ml Cup) 30 gm PO BID [facility] Last Admin: 12/08/21 07:41 Dose: Not Given Linagliptin (Linagliptin 5 Mg Tablet) 5 mg PO DAILY [facility] Last Admin: 12/08/21 07:40 Dose: 5 mg Magnesium Oxide (Magnesium Oxide 400 Mg Tab) 400 mg PO DAILY [facility] Last Admin: 12/08/21 07:41 Dose: 400 mg Melatonin (Melatonin 5 Mg Tablet) 5 mg PO HS@1999 [facility] Last Admin: 12/07/21 19:21 Dose: 5 mg Multivitamins (Multivitamins, Thera 1 Each Tab) 1 each PO DAILY@07 [facility] Last Admin: 12/08/21 07:40 Dose: 1 each Naloxone HCl (Naloxone 0.4 Mg/Ml 1 Ml Vial) 0.2 mg IV Q2M PRN PRN Reason: Opioid Reversal Polyethylene Glycol (Polyethylene Glycol 3350 17 Gm Powd.Pack) 17 gm PO DAILY [facility] Last Admin: 12/08/21 07:41 Dose: Not Given Tamsulosin HCl (Tamsulosin 0.4 Mg Cap.Er.24h) 0.4 mg PO DAILY@0700 [facility] Last Admin: 12/08/21 07:41 Dose: 0.4 mg PHYSICAL EXAMINATION: GENERAL: The patient is alert and oriented x4, Well developed, well nourished. elderly, pale HEENT: Pupils are round and equally reacting to light. EOMI. no scleral icterus. No conjunctival pallor. Normocephalic, atraumatic. No pharyngeal erythema. No thyromegaly. CARDIOVASCULAR: S1 and S2 muffled PULMONARY: diminished breath sounds bilaterally with no wheezing or rhonchi noted. ABDOMEN: soft. non tender on exam. Obese. non-distended, normal bowel sounds. No palpable organomegaly. MUSCULOSKELETAL: No joint swelling or deformity. EXTREMITIES: No cyanosis, clubbing, or pedal edema. NEUROLOGICAL: Gross neurological examination did not reveal any focal deficits. diffuse weakness SKIN: No rashes. Assessment: Hematuria possible hemorrhagic cystitis, possible catheter trauma, with acute blood loss anemia Diabetes mellitus, type 2 Hypertension Hyperlipidemia Left AKA multiple complex medical issues GI prophylaxis DVT prophylaxis Full code Plan: Recommend to continue with current medications and management . Hemoglobin is 8.8 today with no active bleeding noted. Patient will return to [place] once stable. Recommend to monitor hemoglobin closely and for any further hematuria. Recommend accuchecks and achs. Will discuss with case management about discharge planning to ECF. Due to multiple complex medical issues, prognosis is guarded. The impression and plan of care has been dictated by Nell Mendez, nurse practitioner as directed. MD Ofelia I have performed a history and examination and MDM of this patient, discussed the same with the dictator, and agree with the dictator's assessment and plan as written ,documented as a scribe. Based on total visit time, I have performed more than 50% of the visit. Any additional findings or plans will be noted. Objective - Vital Signs Vital signs: Vital Signs Temp 98.2 F 12/08/21 13:36 Pulse 76 12/08/21 13:36 Resp 14 12/08/21 13:36 BP 102/51 12/08/21 13:36 Pulse Ox 98 12/08/21 13:36 FiO2 Intake & Output 12/07/21 12/08/21 12/08/21 18:59 06:59 18:59 Intake Total 354 236 Output Total 500 1200 Balance -146 -1200 236 Intake: Oral 354 236 Output: Urine 500 1200 Other: Voiding Method Indwelling Catheter Indwelling Catheter Indwelling Catheter # Voids 1 - Labs CBC & Chem 7: 12/08/21 05:58 12/08/21 05:58 Labs: Abnormal Lab Results - Last 24 Hours (Table) 12/08/21 12/08/21 Range/Units 05:58 05:58 RBC 3.46 L (4.10-5.20) X 10*6/uL Hgb 8.8 L (12.0-15.0) g/dL Hct 29.4 L (37.2-46.3) % MCH 25.4 L (27.0-32.0) pg MCHC 29.9 L (32.0-37.0) g/dL RDW 15.9 H (11.5-14.5) % Plt Count 579 H (140-440) X 10*3/uL Anion Gap 9.70 L (10.00-18.00) mmol/L Total Bilirubin <0.15 L (0.30-1.20) mg/dL Albumin 3.1 L (3.8-4.9) g/dL Albumin/Globulin Ratio 0.94 L (1.60-3.17) g/dL Microbiology - Last 24 Hours (Table) 12/05/21 18:41 Blood Culture - Preliminary Blood No Growth after 48 hours 12/05/21 12:33 Urine Culture - Final Urine,Voided
[2021-12-08 17:12] LABS: Glucose,Whole Blood 109 mg/dL (70-110)
[2021-12-08] MEDS: SODIUM CHLORIDE 0.9% 1,000 ML IV SCH (18:32)
[2021-12-08] MEDS: MELATONIN 5 MG TABLET PO SCH (19:20)
[2021-12-08] MEDS: ATORVASTATIN 20 MG TAB PO SCH (19:20)
[2021-12-08] MEDS: amLODIPine 10 MG TAB PO SCH (19:20)
[2021-12-09 08:01] LABS: Glucose,Whole Blood 107 mg/dL (70-110)
[2021-12-09] MEDS: TAMSULOSIN 0.4 MG CAP.ER.24H PO SCH (08:51)
[2021-12-09] MEDS: MULTIVITAMINS, THERA 1 EACH TAB PO SCH (08:51)
[2021-12-09] MEDS: DOCUSATE 100 MG CAP PO SCH (08:51)
[2021-12-09] MEDS: LINAGLIPTIN 5 MG TABLET PO SCH (08:52)
[2021-12-09] MEDS: LACTULOSE 20 GM/30 ML CUP PO SCH ×3 (08:52→20:39)
[2021-12-09] MEDS: MAGNESIUM OXIDE 400 MG TAB PO SCH (08:52)
[2021-12-09] MEDS: polyethylene glycoL 3350 17 GM POWD.PACK PO SCH (08:55)
[2021-12-09 09:15] LABS: Basophils # (A) 0.1 k/uL (0-0.2); Basophils % (A) 1 %; Eosinophils # (A) 0.1 k/uL (0-0.7); Eosinophils % (A) 1 %; HCT 28.3 % (34.0-46.0); HGB 9.2 gm/dL (11.4-16.0); Hypochromasia Slight; Lymphocytes # (A) 2.1 k/uL (1.0-4.8); Lymphocytes % (A) 19 %; MCH 27.3 pg (25.0-35.0); MCHC 32.3 g/dL (31.0-37.0); MCV 84.6 fL (80.0-100.0); Mean Platelet Volume 6.8; Monocytes # (A) 0.5 k/uL (0-1.0); Monocytes % (A) 5 %; Neutrophils # (A) 8.2 k/uL (1.3-7.7); Neutrophils % (A) 73 %; Platelet Count 621 k/uL (150-450); RBC 3.35 m/uL (3.80-5.40); RDW 15.8 % (11.5-15.5); WBC 11.2 k/uL (3.8-10.6)
--- NOTE | 2021-12-09 11:24 | P.PN ---
Subjective Progress Note Date: 12/09/21 This is a 71 year old female who was recently admitted with hematuria and blood loss anemia and is being closely monitored. Patient hemoglobin is 8.8 today and urine is yellow with some residual blood noted in the catheter tubing. Patient denies any abdominal pain and is tolerating diet. Patient is from an [facility] [place] and will be returning there once stable. Patient denies chest pain or shortness of breath. 12/09/2021 Patient was seen this morning and urine is yellow with no further bleeding noted. Hemoglobin is stable at 9.2 today. Patient is afebrile and denies chest pain or shortness of breath. Will discuss with case management about returning to ECF possibly in 24 hours. Patient will need outpatient urology follow up. Continue chronic indwelling elias catheter. Review of systems: Constitutional: No reports of fatigue, fever, or chills Cardiovascular: No reports of chest pain or palpitations Respiratory: No reports of shortness of breath or cough GI: No reports of nausea, no reports of of vomiting, no reports of diarrhea : No reports of dysuria or retention, chronic indwelling elias Neurovascular: reports of generalized weakness All medications have been reviewed Active Medications Acetaminophen (Acetaminophen Tab 325 Mg Tab) 650 mg PO Q6HR PRN PRN Reason: Mild Pain or Fever > 100.5 Hydrocodone Bitart/Acetaminophen (Hydrocodone/Apap 5-325mg 1 Each Tab) 1 each PO Q6HR PRN PRN Reason: Pain Last Admin: 12/05/21 18:00 Dose: 1 each Al Hydroxide/Mg Hydroxide (Mag Hydrox/Al Hydrox/Simeth 30 Ml Cup) 30 ml PO Q4H PRN PRN Reason: Indigestion Amlodipine Besylate (Amlodipine 10 Mg Tab) 10 mg PO HS@1999 [facility] Last Admin: 12/08/21 19:20 Dose: 10 mg Atorvastatin Calcium (Atorvastatin 20 Mg Tab) 20 mg PO HS@1999 [facility] Last Admin: 12/08/21 19:20 Dose: 20 mg Bisacodyl (Bisacodyl 10 Mg Supp) 10 mg RECTAL DAILY PRN PRN Reason: Constipation Docusate Sodium (Docusate 100 Mg Cap) 100 mg PO DAILY [facility] Last Admin: 12/09/21 08:51 Dose: 100 mg Ergocalciferol (Ergocalciferol 1,250 Mcg (50,000 Iu) Capsule) 1,250 mcg PO TU [facility] Sodium Chloride (Saline 0.9%) 1,000 mls @ 20 mls/hr IV .Q24H [facility] Last Admin: 12/08/21 18:32 Dose: Not Given Ceftriaxone Sodium 1 gm/ (Sodium Chloride) 50 mls @ 100 mls/hr IVPB Q24HR [facility]; Protocol Last Admin: 12/09/21 08:52 Dose: 100 mls/hr Lactulose (Lactulose 20 Gm/30 Ml Cup) 30 gm PO BID [facility] Last Admin: 12/09/21 08:54 Dose: Not Given Linagliptin (Linagliptin 5 Mg Tablet) 5 mg PO DAILY [facility] Last Admin: 12/09/21 08:52 Dose: 5 mg Magnesium Oxide (Magnesium Oxide 400 Mg Tab) 400 mg PO DAILY [facility] Last Admin: 12/09/21 08:52 Dose: 400 mg Melatonin (Melatonin 5 Mg Tablet) 5 mg PO HS@2000 [facility] Last Admin: 12/08/21 19:20 Dose: 5 mg Multivitamins (Multivitamins, Thera 1 Each Tab) 1 each PO DAILY@0700 [facility] Last Admin: 12/09/21 08:51 Dose: 1 each Naloxone HCl (Naloxone 0.4 Mg/Ml 1 Ml Vial) 0.2 mg IV Q2M PRN PRN Reason: Opioid Reversal Polyethylene Glycol (Polyethylene Glycol 3350 17 Gm Powd.Pack) 17 gm PO DAILY [facility] Last Admin: 12/09/21 08:55 Dose: 17 gm Tamsulosin HCl (Tamsulosin 0.4 Mg Cap.Er.24h) 0.4 mg PO DAILY@0700 [facility] Last Admin: 12/09/21 08:51 Dose: 0.4 mg PHYSICAL EXAMINATION: GENERAL: The patient is alert and oriented x4, Well developed, well nourished. elderly, pale HEENT: Pupils are round and equally reacting to light. EOMI. no scleral icterus. No conjunctival pallor. Normocephalic, atraumatic. No pharyngeal erythema. No thyromegaly. CARDIOVASCULAR: S1 and S2 muffled PULMONARY: diminished breath sounds bilaterally with no wheezing or rhonchi noted. ABDOMEN: soft. non tender on exam. Obese. non-distended, normal bowel sounds . No palpable organomegaly. MUSCULOSKELETAL: No joint swelling or deformity. EXTREMITIES: No cyanosis, clubbing, or pedal edema. NEUROLOGICAL: Gross neurological examination did not reveal any focal deficits. diffuse weakness SKIN: No rashes. Assessment: Hematuria possible hemorrhagic cystitis, possible catheter trauma, with acute blood loss anemia Diabetes mellitus, type 2 Hypertension Hyperlipidemia Left AKA multiple complex medical issues GI prophylaxis DVT prophylaxis Full code Plan: Recommend to continue with current medications and management . Hemoglobin is 9.2 today with no active bleeding noted. Patient will return to [place] once stable. Recommend to monitor hemoglobin closely and for any further hematuria. Recommend accuchecks and achs. Will discuss with case management about discharge planning to ECF possibly in 24 hours. Due to multiple complex medical issues, pr ognosis is guarded. The impression and plan of care has been dictated as a scribe by Nell Mendez, nurse practitioner as directed. MD Ofelia I have performed a history and examination and MDM of this patient, discussed the same with the dictator, and has been documented as a scribe. Based on total visit time, I have performed more than 50% of the visit. Any additional finding s or plans will be noted. Objective - Vital Signs Vital signs: Vital Signs Temp 98.5 F 12/09/21 07:00 Pulse 78 12/09/21 07:00 Resp 18 12/09/21 09:09 BP 125/63 12/09/21 07:00 Pulse Ox 97 12/09/21 07:00 FiO2 Intake & Output 12/08/21 12/09/21 12/09/21 18:59 06:59 18:59 Intake Total 236 90 Output Total 1050 Balance 236 -1050 90 Intake: Oral 236 90 Output: Urine 1050 Other: Voiding Method Indwelling Catheter Indwelling Catheter Indwelling Catheter # Voids 1 # Bowel Movements 1 - Labs CBC & Chem 7: 12/09/21 08:37 12/08/21 05:58 Labs: Abnormal Lab Results - Last 24 Hours (Table) 12/09/21 Range/Units 08:37 WBC 11.2 H (3.8-10.6) k/uL RBC 3.35 L (3.80-5.40) m/uL Hgb 9.2 L (11.4-16.0) gm/dL Hct 28.3 L (34.0-46.0) % RDW 15.8 H (11.5-15.5) % Plt Count 621 H (150-450) k/uL Neutrophils # 8.2 H (1.3-7.7) k/uL Microbiology - Last 24 Hours (Table) 12/05/21 18:41 Blood Culture - Preliminary Blood No Growth after 72 hours
[2021-12-09] MEDS: SODIUM CHLORIDE 0.9% 1,000 ML IV SCH (11:26)
[2021-12-09 11:53] LABS: Glucose,Whole Blood 102 mg/dL (70-110)
--- NOTE | 2021-12-09 13:13 | P.PN ---
Progress Note - Text No acute overnight events, urine is clear hemoglobin stable. She is okay for discharge from urology standpoint, we'll need outpatient cystoscopy, advised to follow up with Dr. Leigh 1-2 weeks to arrange for that
[2021-12-09 17:23] LABS: Glucose,Whole Blood 125 mg/dL (70-110)
[2021-12-09 20:31] LABS: Glucose,Whole Blood 100 mg/dL (70-110)
[2021-12-09] MEDS: MELATONIN 5 MG TABLET PO SCH (20:39)
[2021-12-09] MEDS: amLODIPine 10 MG TAB PO SCH (20:39)
[2021-12-09] MEDS: ATORVASTATIN 20 MG TAB PO SCH (20:39)
[2021-12-10] MEDS: SODIUM CHLORIDE 0.9% 1,000 ML IV SCH (06:17)
[2021-12-10 07:47] LABS: Glucose,Whole Blood 99 mg/dL (70-110)
[2021-12-10] MEDS: LINAGLIPTIN 5 MG TABLET PO SCH (08:16)
[2021-12-10] MEDS: MULTIVITAMINS, THERA 1 EACH TAB PO SCH (08:16)
[2021-12-10] MEDS: DOCUSATE 100 MG CAP PO SCH (08:16)
[2021-12-10] MEDS: polyethylene glycoL 3350 17 GM POWD.PACK PO SCH (08:16)
[2021-12-10] MEDS: MAGNESIUM OXIDE 400 MG TAB PO SCH (08:16)
[2021-12-10] MEDS: LACTULOSE 20 GM/30 ML CUP PO SCH (08:16)
[2021-12-10] MEDS: TAMSULOSIN 0.4 MG CAP.ER.24H PO SCH (08:16)
[2021-12-10] MEDS ORDERED: ERGOCALCIFEROL 1,250 MCG (50,000 IU) CAPSULE PO SCH (09:00)
[2021-12-10 11:38] LABS: Basophils # (A) 0.1 k/uL (0-0.2); Basophils % (A) 1 %; Eosinophils # (A) 0.1 k/uL (0-0.7); Eosinophils % (A) 1 %; HCT 27.5 % (34.0-46.0); HGB 8.9 gm/dL (11.4-16.0); Hypochromasia Slight; Lymphocytes # (A) 1.6 k/uL (1.0-4.8); Lymphocytes % (A) 17 %; MCH 27.4 pg (25.0-35.0); MCHC 32.4 g/dL (31.0-37.0); MCV 84.5 fL (80.0-100.0); Monocytes # (A) 0.4 k/uL (0-1.0); Monocytes % (A) 4 %; Neutrophils # (A) 7.1 k/uL (1.3-7.7); Neutrophils % (A) 76 %; Platelet Count 546 k/uL (150-450); RBC 3.26 m/uL (3.80-5.40); RDW 15.6 % (11.5-15.5); WBC 9.4 k/uL (3.8-10.6)
[2021-12-10 12:10] LABS: Glucose,Whole Blood 100 mg/dL (70-110)
--- NOTE | 2021-12-10 13:36 | P.DS ---
Providers Date of admission: 12/10/21 08:33 Expected date of discharge: 12/10/21 Attending physician: Scout Cerda Consults: 12/05/21 16:03 Consult Physician Routine Consulting Provider: Wayne Leigh Consult Reason/Comments: Gross hematuria Do you want consulting provider notified?: Already Contacted Primary care physician: Stated None Hospital Course: Final diagnosis Hematuria possible hemorrhagic cystitis, possible catheter trauma, with acute blood loss anemia Diabetes mellitus, type 2 Hypertension Hyperlipidemia Left AKA multiple complex medical issues GI prophylaxis DVT prophylaxis Full code Discharge disposition Patient is being discharged in a stable condition with guarded prognosis to [facility]. Patient will follow-up with Dr. Leigh in the outpatient setting upon discharge in the next 1-2 weeks. She will continue on oral Ceftin twice daily for the next 3 days and then may discontinue. Patient was on Plavix and recommend holding until follow-up with urology as patient needs outpatient testing and cystoscopy. Total time taken is greater than 35 minutes. Hospital course This is a 71-year-old female who was recently admitted with gross hematuria found in her [place] catheter and was evaluated by urology as CT showed hemorrhagic cyst in the kidneys and debris in the bladder. Patient has been having chronic indwelling Col[place] catheter and recommend to continue and has had clearance of hematuria and current hemoglobin is stable at 8.9 today. Recommend repeat labs in the next 2-3 days to monitor hemoglobin and continue holding Plavix until follow-up with urology. Recommend continue with Accu-Cheks before meals and at bedtime and may use sliding scale as needed for elevated blood sugars. Recommend consistent carb diet. Currently no reports of chest pain, shortness of breath, or palpitations. Patient is afebrile. No reports of nausea or vomiting and patient is tolerating diet. Patient will be going to [facility]. Guarded Prognosis. On exam vital signs are stable. Cardio S1, S2 are muffled. Respiratory system shows diminished breath sounds at the bases with no wheezing or rhonchi noted. Abdomen is soft and obese, and nontender. Nervous system shows diffuse weakness. Please refer to medication reconciliation sheet for a list of medications. The impression and plan of care has been dictated by Nell Mendez, Nurse Practitioner as directed. Dr. Prashant MD I have performed a history and examination and MDM of this patient, discussed the same with the dictator, and agree with the dictator's assessment and plan as written ,documented as a scribe. Based on total visit time, I have performed more than 50% of the visit. Patient Condition at Discharge: Fair Plan - Discharge Summary Discharge Rx Participant: No New Discharge Prescriptions: New cefUROXime axetiL [Ceftin] 500 mg PO BID 3 Days #6 tab Continue Ergocalciferol [Vitamin D2 (1250 Mcg = 57433 Iu)] 1,250 mcg PO TU amLODIPine BESYLATE 10 mg PO HS@1999 Melatonin 5 mg PO HS@1999 Docusate [Colace] 100 mg PO DAILY bisacodyL [Dulcolax] 10 mg RECTAL DAILY PRN supp PRN Reason: Constipation Multivitamins, Thera [Multivitamin (formulary)] 1 tab PO DAILY@0700 Mag Hydrox/Aluminum Hyd/Simeth [Mylanta Maximum Strength Liq] 30 ml PO Q4H PRN PRN Reason: Indigestion HYDROcodone/APAP 5-325MG [[place] 5-325] 1 tab PO Q6HR PRN #6 tab PRN Reason: Pain Magnesium Oxide [Magox 400] 400 mg PO DAILY Linagliptin [Tradjenta] 5 mg PO DAILY Tamsulosin [Flomax] 0.4 mg PO DAILY@0700 Atorvastatin [Lipitor] 20 mg PO HS@1999 Acetaminophen [Acetaminophen ER] 650 mg PO Q6H PRN PRN Reason: Pain Lactulose [Cephulac] 30 gm PO BID polyethylene glycoL 3350 [Miralax] 17 gm PO DAILY Discontinued Clopidogrel [Plavix] 75 mg PO HS@1999 Discharge Medication List Ergocalciferol [Vitamin D2 (1250 Mcg = 25990 Iu)] 1,250 mcg PO TU 07/16/21 [History] Magnesium Oxide [Magox 400] 400 mg PO DAILY 07/16/21 [History] Linagliptin [Tradjenta] 5 mg PO DAILY 07/26/21 [History] Tamsulosin [Flomax] 0.4 mg PO DAILY@0700 07/26/21 [History] amLODIPine BESYLATE 10 mg PO HS@199907/26/21 [History] Atorvastatin [Lipitor] 20 mg PO HS@199908/15/21 [History] Docusate [Colace] 100 mg PO DAILY 08/15/21 [History] Melatonin 5 mg PO HS@199908/15/21 [History] bisacodyL [Dulcolax] 10 mg RECTAL DAILY PRN supp 08/29/21 [Rx] Acetaminophen [Acetaminophen ER] 650 mg PO Q6H PRN 10/03/21 [History] Lactulose [Cephulac] 30 gm PO BID 10/03/21 [History] Multivitamins, Thera [Multivitamin (formulary)] 1 tab PO DAILY@0700 10/29/21 [History] Mag Hydrox/Aluminum Hyd/Simeth [Mylanta Maximum Strength Liq] 30 ml PO Q4H PRN 12/05/21 [History] polyethylene glycoL 3350 [Miralax] 17 gm PO DAILY 12/05/21 [History] HYDROcodone/APAP 5-325MG [[place] 5-325] 1 tab PO Q6HR PRN #6 tab 12/10/21 [Rx] cefUROXime axetiL [Ceftin] 500 mg PO BID 3 Days #6 tab 12/10/21 [Rx] Follow up Appointment(s)/Referral(s): [facility], [NON-STAFF] - None,Stated [Primary Care Provider] - 1-2 days Wayne Leigh MD [STAFF PHYSICIAN] - 2 Weeks (cysto) Ambulatory/Diagnostic Orders: Complete Blood Count w/diff [LAB.AMB] Time Frame: 3 Days, Location: None Selected Activity/Diet/Wound Care/Special Instructions: Patient is going to [facility] Activity as tolerated Follow-up with urology in 1 week Recommend repeat CBC in 2-3 days to monitor hemoglobin Recommend holding anticoagulation until follow-up with urology Continue with chronic indwelling Colby catheter Continue with local wound care Continue with consistent carb diet Discharge Disposition: TRANSFER TO SNF/ECF
[2021-12-10 13:54] VITALS: TEMP 97.4
[2021-12-10 13:57] VITALS: BP 115/66; PULSE 75; RESP 18
[2021-12-10 14:08] VITALS: BMI 22.0
== END 2021-12-10 15:33 | DRG 699 ==
LOC: EC 11:17 → 6NMEDSUR 16:03 → OBSVTOIN 12-10 08:33
PROVIDERS: ADMIT Hospitalist; ATTEND Hospitalist
DX: T83.511A Infection and inflammatory reaction due to indwelling urethral catheter, initial encounter (principal); D62 Acute posthemorrhagic anemia; N30.91 Cystitis, unspecified with hematuria; I10 Essential (primary) hypertension; Z68.22 Body mass index [BMI] 22.0-22.9, adult; E11.9 Type 2 diabetes mellitus without complications; E66.9 Obesity, unspecified; E78.5 Hyperlipidemia, unspecified; E86.0 Dehydration; I25.2 Old myocardial infarction; Z79.84 Long term (current) use of oral hypoglycemic drugs; Z79.899 Other long term (current) drug therapy; Z87.891 Personal history of nicotine dependence; Z89.612 Acquired absence of left leg above knee; Z88.5 Allergy status to narcotic agent
CPT/HCPCS: 36415; 74176; 80048; 80053; 81001; 82550; 83735; 85025; 85610; 85730; 86850; 86900; 86901; 86920; 87040; 87086; 96360; 96361; 99285